=== PATIENT | female | born 1955 | race Two or more races ===

== ENCOUNTER 2021-10-30 11:43 | Outpatient (REF) | payer MEDICARE, SELFPAY ==
--- NOTE | ~2021-10-30 | US_ITS ---
EXAMINATION: US PELVIS CLINICAL INFORMATION: Postmenopausal bleeding. COMPARISON: Pelvic ultrasound 05/09/2011 TECHNIQUE: Ultrasound of the pelvis is performed using both transabdominal and transvaginal transducers along with Doppler. Transvaginal imaging is performed due to inadequate visualization transabdominally. FINDINGS: Uterus: The uterus is anteverted and measures 2.7 x 3.3 x 5.1 cm. The double wall endometrial thickness is 1.5 cm which appears heterogeneous with cystic change. The uterus is smooth in contour and has normal myometrial echogenicity. A 1.2 x 1.2 x 1.7 cm subserosal myoma in the anterior lower uterine segment, previously 1.4 cm. A 2.4 x 1.8 x 1.7 cm subserosal myoma in the left body of the uterus, previously 1.3 x 0.9 x 1.3 cm appears morphologically similar despite differences in measurement technique. Adnexa: Both ovaries are visualized and unremarkable in appearance. There is no pelvic ascites or fluid collection. Right ovary measures 2.1 x 1.8 x 2.4 cm. Left ovary measures 2.9 x 1.9 x 2.2 cm. US/US pelvic and transvaginal IMPRESSION: Thickened heterogeneous endometrium with cystic change measuring up to 1.5 cm in thickness. Given provided history of postmenopausal bleeding, recommend gynecologic referral for consideration of sampling. Several small uterine myomas measuring up to 2.4 cm. Ovaries are unremarkable.
--- NOTE | ~2021-10-30 | XR_ITS ---
EXAMINATION: XR foot RT min 3V CLINICAL INFORMATION: Right foot open wound COMPARISON: None TECHNIQUE: 3 views of the foot XR/XR foot RT min 3V FINDINGS/IMPRESSION: There is focal soft tissue swelling of the third digit corresponding to the reported location of the open wound, with a focal cortical erosion of the tuft of the third distal phalanx, raising suspicion for osteomyelitis. This could be confirmed with MR foot. No fracture or dislocation. Mild degenerative changes of the first metatarsophalangeal joint with hallux valgus deformity and degenerative spurring. Plantar calcaneal and Achilles tendon enthesopathy. Mild degenerative changes of the dorsal midfoot with osteophytosis. No joint effusion. Atherosclerotic vascular calcification.
[2021-10-30 13:09] LABS: MANUAL DIFF FLAG NO
[2021-10-30 13:15] LABS: Basophils Percent Auto 0.3 % (0-2); Eosinophils Absolute Auto 0.2 X10*3/uL (0.0-0.4); Eosinophils Percent Auto 3.2 % (0-4); Imm Gran Abs Auto 0.02 X10*3/uL (0.00-0.03); Imm Gran Pct Auto 0.3 % (0.0-0.4); Lymphocytes Absolute Auto 2.1 X10*3/uL (1.2-4.9); Mean Corpuscular HGB Conc 32.4 g/dl (31.0-35.0); Mean Corpuscular Hemoglobin 29.7 pg (27.0-33.0); Mean Corpuscular Volume 91.6 fL (80.0-98.0); Mean Platelet Volume 9.2 fL (9.4-12.3); Monocytes Absolute Auto 0.7 X10*3/uL (0.1-1.2); Monocytes Percent Auto 9.2 % (2-11); Neutrophils Absolute Auto 4.2 x10*3/uL (2.0-8.3); Platelet Count 370 X10*3/uL (160-400); Red Blood Count 4.04 X10*6/uL (4.20-5.50); Red Cell Distribution Width 13.4 % (11.0-16.0); White Blood Count 7.3 X10*3/uL (4.8-10.8)
[2021-10-30 13:33] LABS: Estimated Average Glucose 243 mg/dL; Hemoglobin A1c % 10.1 %
[2021-10-30 13:45] LABS: Alanine Aminotransferase 31 U/L (0-31); Albumin Level 4.1 g/dL (3.5-5.0); Alkaline Phosphatase 52 U/L (39-117); Anion Gap 11 (12-20); Aspartate Amino Transferase 25 U/L (5-31); Bilirubin Total 0.4 mg/dL (0.0-1.0); Blood Urea Nitrogen 37 mg/dL (9-16); Carbon Dioxide 29 mmol/L (22-29); Chloride 101 mmol/L (96-108); Cholesterol 186 mg/dL; Estimated Glomerular Filt Rate 38; Glucose Random 157 mg/dL (60-115); HDL Cholesterol 34 mg/dL; LDL Cholesterol Calculated 104 mg/dl; Potassium 5.2 mmol/L (3.3-5.1); Sodium 136 mmol/L (135-145); Total Protein 7.7 g/dL (6.5-8.0); Triglycerides 242 mg/dL
[2021-10-30 14:05] LABS: TSH reflex Free T4 0.41 uIU/mL (0.32-4.0)
== END 2021-10-30 11:44 | disposition home or self-care (01) ==
LOC: HO.US 11:43
PROVIDERS: Absent Provider Emergency Medicine; PCP Emergency Medicine; Visit Provider Advanced Practice Midwife
DX: N95.0 Postmenopausal bleeding (principal); S91.301D Unspecified open wound, right foot, subsequent encounter; E11.65 Type 2 diabetes mellitus with hyperglycemia; N93.9 Abnormal uterine and vaginal bleeding, unspecified; B35.1 Tinea unguium
CPT/HCPCS: 36415; 73630; 76830; 76856; 80053; 80061; 83036; 84443; 85025

== ENCOUNTER 2021-11-08 10:41 | Outpatient (REF) | payer MEDICARE, MEDICAID, SELFPAY ==
--- NOTE | ~2021-11-08 | MM_ITS ---
EXAMINATION: BONE DENSITOMETRY CLINICAL INDICATION: Menopause. COMPARISON: None (current study represents initial baseline exam). TECHNIQUE: Using a [employer] DXA System (software version: 13.1) manufactured by [employer], dual-energy x-ray absorptiometry was performed of the lumbar spine and left hip. The images are of good technical quality. Summary results are attached. FINDINGS: AP SPINE L1-L4: There are multilevel degenerative changes lumbar spine which may cause overestimation of the lumbar bone mineral density. BMD 1.549 g/cm2, Z-score 3.6, T-score 3.1, normal. LEFT FEMUR, NECK: BMD 1.025 g/cm2, Z-score 0.7, T-score -0.1, normal. LEFT FEMUR, TOTAL: BMD 1.231 g/cm2, Z-score 2.3, T-score 1.8, normal. IDENTIFIED RISK FACTORS: Menopause, height loss, hyperthyroid, intestinal/bowel disease, recurrent falls, secondary osteoporosis. HISTORY OF FRACTURE: None listed. MEDICATIONS: None listed. MM/XR DEXA axial skeleton IMPRESSION: 1. DIAGNOSIS: Normal bone density based on the lowest T-score value of -0.1 in the femoral neck applying World Health Organization criteria. 2. 10-YEAR FRACTURE RISK PREDICTION, FRAX: According to the guidelines, FRAX calculation should only be performed on patients in the osteopenia bone density category. Therefore, FRAX was not performed on this patient. 3. Treatment Recommendations: NOF guidelines recommend consideration for treatment in postmenopausal women and men age 50 and older presenting with the following: -A hip or vertebral (clinical or morphometric) fracture. -T-score less than or equal to -2.5 at the femoral neck or spine after appropriate evaluation to exclude secondary causes. -Low bone mass at the hip or spine and a 10-year fracture probability by FRAX of greater than or equal to 3% for hip fracture or greater than or equal to 20% for major osteoporotic fracture based on the [place] adapted WHO algorithm. 4. Other Recommendations: All treatment decisions require clinical judgment and consideration of individual patient factors, including patient preferences, comorbidities, previous drug use, risk factors not captured in the FRAX model (e.g. frailty, falls, vitamin D deficiency, increased bone turnover, interval significant decline in bone density) and possible under or overestimation of fracture risk by FRAX. FUTURE SCAN RECOMMENDATION: People with diagnosed cases of osteoporosis or at high risk for fracture should have regular bone mineral density tests. For patients eligible for Medicare, routine testing is allowed once every 2 years. The testing frequency can be increased to one year for patients who have rapidly progressing disease, those who are receiving or discontinuing medical therapy to restore bone mass, or have additional risk factors.
== END 2021-11-08 10:42 | disposition home or self-care (01) ==
LOC: HO.MAMMO 10:41
PROVIDERS: Visit Provider Internal Medicine
DX: Z13.820 Encounter for screening for osteoporosis (principal); Z78.0 Asymptomatic menopausal state; E03.9 Hypothyroidism, unspecified
CPT/HCPCS: 77080

== ENCOUNTER 2021-11-22 10:58 | Outpatient (REF) | payer MEDICARE, SELFPAY ==
--- NOTE | ~2021-11-22 | MM_ITS ---
EXAMINATION: MM SCREENING DIGITAL BREAST TOMOSYNTHESIS, BILATERAL CLINICAL INFORMATION: Screening. Asymptomatic. History reduction mammoplasty over 30 years ago. Most recent prior mammography performed in [place]. The lifetime risk of breast cancer based on the Tyrer-Cuzick Model is 9%. COMPARISON: Mammography: 07/29/2012 ([facility] [place]). TECHNIQUE: Digital breast tomosynthesis is performed in both the craniocaudal and mediolateral oblique views along with computer-aided detection (CAD). Synthesized 2D images are generated from the tomosynthesis. Additional right CC view is provided. FINDINGS: There are scattered areas of fibroglandular density (ACR BI-RADS breast composition Category b). Parenchymal pattern is similar to the remote prior exam. Scattered minor asymmetries and scarring are stable. There are scattered benign round rim predominantly dermal calcifications again seen anterior breasts consistent with the remote prior reduction mammoplasty. The axilla are unremarkable. There are no significant changes. MM/MM tomosynthesis screening BI IMPRESSION: No mammographic evidence of malignancy. ASSESSMENT: BI-RADS 2: Benign RECOMMENDATION: Routine annual mammography screening. This patient's information was entered into a reminder system with a target due date for their next mammogram.
== END 2021-11-22 10:59 | disposition home or self-care (01) ==
LOC: HO.MAMMO 10:58
PROVIDERS: Visit Provider Internal Medicine
DX: Z12.31 Encounter for screening mammogram for malignant neoplasm of breast (principal)
CPT/HCPCS: 77063; 77067

== ENCOUNTER 2021-11-25 15:21 | Outpatient (REF) | payer MEDICARE, SELFPAY ==
[2021-11-28 11:00] LABS: HPV mRNA E6/E7 rflx Not Detected (Not Detected)
== END 2021-11-25 15:22 | disposition home or self-care (01) ==
LOC: HO.LAB 15:21
PROVIDERS: PCP Nurse Practitioner Primary Care; Visit Provider Obstetrics & Gynecology
DX: Z12.4 Encounter for screening for malignant neoplasm of cervix (principal); Z11.51 Encounter for screening for human papillomavirus (HPV); N95.0 Postmenopausal bleeding
CPT/HCPCS: 58100; 87624; 88142; 88305; 99202

== ENCOUNTER 2021-12-03 14:30 | Outpatient (REF) | payer MEDICARE, SELFPAY ==
--- NOTE | ~2021-12-03 | MR_ITS ---
EXAMINATION: MR FOOT WITHOUT AND WITH CONTRAST, RIGHT CLINICAL INFORMATION: Right foot pain and swelling. Distal 3rd toe infection in February 2021. Third toe wound with soft tissue swelling. COMPARISON: Right foot radiographs dated 10/30/2021. TECHNIQUE: Multisequence MR imaging of the right foot was obtained before and after the administration of 10 mL Gadavist IV contrast on a high-field strength scanner. FINDINGS: Soft tissue ulceration with subcutaneous edema and postcontrast enhancement within the distal aspect of the 3rd toe. Soft tissue edema extends proximally along the 3rd toe. No evidence of abscess formation. There is attenuation and irregularity of the adjacent 3rd distal phalanx with increased T2 and decreased T1 signal as well as postcontrast enhancement, consistent with distal phalangeal osteomyelitis. No additional evidence of acute osteomyelitis. No stress reaction or fracture. No additional concerning lytic or blastic osseous lesion. The visualized flexor and extensor tendons are intact. Mild edema throughout the intrinsic musculature of the foot, which can be seen in diabetic patients. The Lisfranc ligament is intact. No abnormal soft tissue mass, fluid collection, or abscess formation. MR/MR foot RT wo/w con IMPRESSION: Distal 3rd toe soft tissue ulceration and cellulitis with erosion/acute osteomyelitis of the distal 3rd phalanx.
[2021-12-03 14:16] LABS: Anion Gap 14 (12-20); Blood Urea Nitrogen 27 mg/dL (9-16); Calcium 10.4 mg/dL (8.4-10.2); Carbon Dioxide 28 mmol/L (22-29); Chloride 99 mmol/L (96-108); Estimated Glomerular Filt Rate 56; Glucose Random 209 mg/dL (60-115); Potassium 5.1 mmol/L (3.3-5.1); Sodium 136 mmol/L (135-145)
== END 2021-12-03 14:31 | disposition home or self-care (01) ==
LOC: HO.MRI 14:30
PROVIDERS: Visit Provider Nurse Practitioner Primary Care
DX: S91.301A Unspecified open wound, right foot, initial encounter (principal)
CPT/HCPCS: 36415; 73720; 80048; A9585

== ENCOUNTER 2021-12-04 07:52 | Outpatient (RCR) | payer MEDICARE, MEDICAID, SELFPAY | END 2022-01-24 15:19 | disposition home or self-care (01) | LOC: HO.WCC 07:52 | PROVIDERS: PCP Nurse Practitioner Primary Care; Visit Provider Surgery | DX: Z09 Encounter for follow-up examination after completed treatment for conditions other than malignant neoplasm (principal); E11.69 Type 2 diabetes mellitus with other specified complication; M86.271 Subacute osteomyelitis, right ankle and foot; L84 Corns and callosities; Z86.31 Personal history of diabetic foot ulcer | CPT/HCPCS: 11042; 99212 ==

== ENCOUNTER 2021-12-07 07:29 | Inpatient (IN) | payer MEDICARE, SELFPAY ==
[2021-12-07 07:44] VITALS: BP 172/81; PULSE 94; RESP 19; TEMP 36.6; O2SAT 98; BMI 34.8
--- NOTE | 2021-12-07 08:29 | ED_ITS ---
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 Patient states that the 3rd toe on her right foot has been infected and she has been taking antibiotics however, her doctor ordered an MRI and saw that the infection had reached the bone. She states that her doctor told her to come to the emergency department immediately for IV antibiotics and admission. Patient states that she is feeling very anxious about staying in the hospital and would like something for her nerves. Patient denies any dizziness, lightheadedness, abdominal pain, nausea, vomiting, fever, chills, blurry vision, double vision, loss of vision, chest pain, difficulty breathing, shortness of breath, back pain, night sweats, pain with urination, increased urinary frequency, increased urinary urgency, blood in her urine or stool, syncope or a near syncopal episode, recent trauma or falls, bowel incontinence, bladder incontinence, bowel retention, bladder retention, or any other complaints at this time. MD complaint: other (chronic toe wound) Onset (ago): week(s) Place: home Severity: mild Severity scale (1-10): 3 Relieving factors: other (antibiotic therapy) Exacerbating factors: nothing Other symptoms: none Related Data Home Medications Medication Instructions Recorded Confirmed Unobtainable 11/25/21 11/25/21 Allergies Allergy/AdvReac Type Severity Reaction Status Date / Time No Known Allergies Allergy Unverified 11/25/21 15:48 Review of Systems Constitutional: Constitutional: Reports no additional constitutional complaints, Denies chills, Denies fever(s) and Denies night sweats Eyes: Eyes: Reports no additional eye complaints, Denies blurry vision, Denies change in vision, Denies diplopia, Denies eye discharge, Denies loss of vision and Denies eye pain ENT: Denies dizziness Cardiovascular: Cardiovascular: Reports no additional cardiovascular complaints, Denies chest pain, Denies lightheadedness, Denies Loss of Consciousness and Denies dyspnea Respiratory: Respiratory: Reports no additional respiratory complaints and Denies dyspnea Gastrointestinal: Gastrointestinal: Reports no additional gastrointestinal complaints, Denies abdominal pain, Denies melena, Denies hematochezia, Denies change in bowel habits and Denies change in stool character Genitourinary: Genitourinary: Denies hematuria, Denies urinary frequency, Denies dysuria, Denies urinary incontinence, Denies urinary hesitancy and Denies urinary urgency Musculoskeletal: Musculoskeletal: Reports no additional musculoskeletal complaints, Denies numbness and Denies tingling Integumentary/Breasts: Comments: right 3rd toe wound Neurologic: Denies dizziness, Denies loss of vision, Denies numbness and Denies tingling Psychiatric: Psychiatric: Reports no additional psychiatric complaints and Reports anxiety Endocrine: Endocrine: Reports no additional endocrine complaints Hematologic/Lymphatic: Hematologic/Lymphatic: Reports no additional hematologic/lymphatic complaints Allergic/Immunologic: Allergic/Immunologic: Reports no additional allergic/immunologic complaints PMFSH Past Medical History Attestation statement: The following information was validated with the patient. Source: old records reviewed Medical History HTN (hypertension) Hypothyroid Insulin dependent type 1 diabetes mellitus Surgical History H/O heart artery stent Social History Social History Patient Tobacco Use Status: Never used Tobacco Use of substances other than those prescribed or required for medical reasons: No Advance Directives: No Advance Directives Information Provided: No Physical Exam Vital Signs: Vital Signs: Last Vital Signs Temp 98 F 12/07/21 07:44 Pulse 72 12/07/21 08:56 Resp 18 12/07/21 08:56 BP 159/77 H 12/07/21 08:56 Pulse Ox 97 12/07/21 08:56 BMI result Body Mass Index 34.8 Const: General: cooperative, no acute distress, alert and awake Nutritional Appearance: well nourished Orientation/consciousness: patient oriented x3 Limitations: no limitations HEENT: Head: Yes normal to inspection and Yes atraumatic Ears: hearing grossly normal bilaterally and external ears normal General nose exam: Normal external nose present, no nasal discharge noted and no epistaxis Face and sinus: Yes normal facial exam, No abrasion and No laceration Mouth: Normal oral and palatal mucosa present, no drooling and no muffled voice Eyes: General: appearance normal, both eyes and all related structures Periorbital: periorbital findings normal Eyelids: Yes eyelids normal Conjunctivae: conjunctivae normal Pupils: Equal, round and reactive pupils present EOM: EOMs intact bilaterally Neck: Neck: Yes normal visual inspection, Yes full ROM and Yes no lymphadenopathy Chest: Chest palpation & inspection: normal inspection of the chest Resp: Effort & Inspection: normal respiratory effort and able to speak in complete sentences Auscultation: clear to auscultation bilaterally Cardio: Rate: regular rate Rhythm: regular rhythm GI: Inspection: Yes normal to inspection Skin: Other: small wound to the plantar aspect of the right 3rd toe. Neuro: General: patient oriented x3 and moves all extremities Cranial nerves: Yes Equal, round and reactive pupils present Cognition (Neuro): normal cognition Motor exam (neuro): 5/5 motor strength present throughout Sensory Exam: Normal double simultaneous stimulation for sensation Coordination: [id number] test normal Extrem: General: Yes normal to inspection, Yes full ROM and Yes capillary ref ill normal Psych: Appearance: grossly normal Mental Status: mental status grossly normal Affect: normal affect Attitude: cooperative Thought process: Normal thought process present Thought content: Normal thought content present Insight: Good insight present (Psych) MDM - Extremity Injury (Lower) MDM Narrative Medical decision making narrative: Patient is a 66 year old female presenting to the emergency department today with osteomyelitis. Patient's physical exam showed a small wound to the plantar aspect of the right 3rd toe but was otherwise unremarkable. Patient's blood work was unremarkable. Patient's MRI from 12/03/2021 showed acute osteomyelitis of the distal 3rd phalanx. I explained my physical exam findings as well as all test results to the patient. I answered all questions asked by the patient. Patient received IV Vancomycin and Zosyn while in the Emergency Department. She also received 1 dose of PO Ativan which she stated helped her anxious feeling significantly. I spoke to Dr. Griffith via [employer], who agreed to admission of this patient. Patient verbalized agreement and understanding with this treatment plan and admission. Differential Diagnosis Differential diagnosis: Unlikely puncture wound of foot (osteomyelitis) Medical Records Attestation: I reviewed the patient's medical records. Lab Data Attestation: I reviewed the patient's lab results. Result diagrams: 12/07/21 09:11 12/07/21 09:11 Labs: Lab Results 12/07/21 12/07/21 12/07/21 Range/Units 09:11 09:11 09:20 WBC 9.3 (4.8-10.8) X10*3/uL RBC 3.89 L (4.20-5.50) X10*6/uL Hgb 11.8 L (12.0-16.0) g/dl Hct 35.4 L (37.0-47.0) % MCV 91.0 (80.0-98.0) fL MCH 30.3 (27.0-33.0) pg MCHC 33.3 (31.0-35.0) g/dl RDW 13.6 (11.0-16.0) % Plt Count 423 H (160-400) X10*3/uL MPV 9.3 L (9.4-12.3) fL Immature Gran % (Auto) 0.3 (0.0-0.4) % Neut % (Auto) 66.0 (45-73) % Lymph % (Auto) 22.1 (20-40) % Woodruff % (Auto) 9.0 (2-11) % Eos % (Auto) 2.4 (0-4) % Baso % (Auto) 0.2 (0-2) % Lymph # (Auto) 2.1 (1.2-4.9) X10*3/uL Woodruff # (Auto) 0.8 (0.1-1.2) X10*3/uL Eos # (Auto) 0.2 (0.0-0.4) X10*3/uL Baso # (Auto) 0.0 (0.0-0.2) X10*3/uL Abs Immat Gran (auto) 0.03 (0.00-0.03) X10*3/uL Absolute Neuts (auto) 6.2 (2.0-8.3) x10*3/uL Absolute Nucleated RBC 0.000 (0.0-0.012) X10*3/uL Nucleated RBC % (auto) 0.0 (0.0-0.2) /100WBC Sodium 139 (135-145) mmol/L Potassium 4.1 (3.3-5.1) mmol/L Chloride 101 (96-108) mmol/L Carbon Dioxide 26 (22-29) mmol/L Anion Gap 16 (12-20) BUN 21 H (9-16) mg/dL Creatinine 0.91 (0.5-1.4) mg/dL Estim Creat Clear Calc 71.7 Estimated GFR > 60 Fasting Glucose 223 H (60-99) mg/dL Lactic Acid 1.7 (0.5-2.0) mmol/L Calcium 10.0 (8.4-10.2) mg/dL Total Bilirubin 0.4 (0.0-1.0) mg/dL AST 32 H (5-31) U/L ALT 33 H (0-31) U/L Alkaline Phosphatase 45 (39-117) U/L Total Protein 7.7 (6.5-8.0) g/dL Albumin 4.1 (3.5-5.0) g/dL Imaging Data MRI - right foot: Attestation: I personally reviewed and interpreted this imaging study as follows: My impression: Acute osteomyelitis Radiologist's impression: EXAMINATION: MR FOOT WITHOUT AND WITH CONTRAST, RIGHT CLINICAL INFORMATION: Right foot pain and swelling. Distal 3rd toe infection in February 2021. Third toe wound with soft tissue swelling.? COMPARISON: Right foot radiographs dated 10/30/2021.? TECHNIQUE: Multisequence MR imaging of the right foot was obtained before and after the administration of 10 mL Gadavist IV contrast on a high-field strength scanner.? FINDINGS: Soft tissue ulceration with subcutaneous edema and postcontrast enhancement within the distal aspect of the 3rd toe. Soft tissue edema extends proximally along the 3rd toe. No evidence of abscess formation. There is attenuation and irregularity of the adjacent 3rd distal phalanx with increased T2 and decreased T1 signal as well as postcontrast enhancement, consistent with distal phalangeal osteomyelitis. No additional evidence of acute osteomyelitis. No stress reaction or fracture. No additional concerning lytic or blastic osseous lesion. The visualized flexor and extensor tendons are intact. Mild edema throughout the intrinsic musculature of the foot, which can be seen in diabetic patients. The Lisfranc ligament is intact. No abnormal soft tissue mass, fluid collection, or abscess formation.? MR/MR foot RT wo/w con IMPRESSION: Distal 3rd toe soft tissue ulceration and cellulitis with erosion/acute osteomyelitis of the distal 3rd phalanx.? Dictated By: Ulysses Mandujano MD Signed By: Electronically signed by Ulysses Mandujano MD 12/05/21 0937 Discharge Plan Discharge Clinical Impression: Osteomyelitis Patient Disposition: Admitted As Inpatient Prescriptions: No Action Unobtainable 0RF Print Language: Nepali
[2021-12-07] MEDS: LORazepam 1 MG TABLET 2 MG PO (08:40)
[2021-12-07 08:56] VITALS: BP 159/77; PULSE 72; RESP 18; O2SAT 97
--- NOTE | 2021-12-07 09:11 | PC.NURSE ---
Right third toe small dried wound to under side of toe, left open to air. +CMS. IV established.
[2021-12-07 09:16] LABS: MANUAL DIFF FLAG NO
[2021-12-07 09:17] LABS: Basophils Percent Auto 0.2 % (0-2); Eosinophils Absolute Auto 0.2 X10*3/uL (0.0-0.4); Eosinophils Percent Auto 2.4 % (0-4); Hematocrit 35.4 % (37.0-47.0); Hemoglobin 11.8 g/dl (12.0-16.0); Imm Gran Abs Auto 0.03 X10*3/uL (0.00-0.03); Imm Gran Pct Auto 0.3 % (0.0-0.4); Lymphocytes Absolute Auto 2.1 X10*3/uL (1.2-4.9); Lymphocytes Percent Auto 22.1 % (20-40); Mean Corpuscular HGB Conc 33.3 g/dl (31.0-35.0); Mean Corpuscular Hemoglobin 30.3 pg (27.0-33.0); Mean Platelet Volume 9.3 fL (9.4-12.3); Monocytes Absolute Auto 0.8 X10*3/uL (0.1-1.2); Neutrophils Absolute Auto 6.2 x10*3/uL (2.0-8.3); Platelet Count 423 X10*3/uL (160-400); Red Blood Count 3.89 X10*6/uL (4.20-5.50); Red Cell Distribution Width 13.6 % (11.0-16.0); White Blood Count 9.3 X10*3/uL (4.8-10.8)
[2021-12-07] MEDS: Piperacillin Sodium/Tazobactam 4.5 GM in 0.9 % Sodium Chloride 100 ML IV ×3 (09:20→20:39)
[2021-12-07 09:34] LABS: Alanine Aminotransferase 33 U/L (0-31); Albumin Level 4.1 g/dL (3.5-5.0); Alkaline Phosphatase 45 U/L (39-117); Anion Gap 16 (12-20); Aspartate Amino Transferase 32 U/L (5-31); Bilirubin Total 0.4 mg/dL (0.0-1.0); Blood Urea Nitrogen 21 mg/dL (9-16); Carbon Dioxide 26 mmol/L (22-29); Chloride 101 mmol/L (96-108); Creatinine Clr Calc Pharmacy 71.7; Estimated Glomerular Filt Rate > 60; Glucose Fasting 223 mg/dL (60-99); Potassium 4.1 mmol/L (3.3-5.1); Sodium 139 mmol/L (135-145); Total Protein 7.7 g/dL (6.5-8.0)
[2021-12-07 09:36] LABS: Lactic Acid 1.7 mmol/L (0.5-2.0)
--- NOTE | 2021-12-07 11:25 | PHA.MEDREC ---
Pharmacy Consult ? Medication Reconciliation Pharmacy has completed the medication reconciliation.
[2021-12-07 11:38] VITALS: BP 157/83; PULSE 68; RESP 16
--- NOTE | 2021-12-07 12:34 | P.HPHOSP_ITS ---
History of Present Illness Date of Service: 12/07/21 Chief Complaint: right third toe osteomyelitis 66-year-old female presents with what she claims is a bone infection in her right 3rd toe. She states she had an MRI done by her PCP who called stated she needed to go to the emergency room for IV antibiotics. When reviewed, MRIs consistent with 3rd right toe distal phalanx osteomyelitis. When further queried, she states she had similar episode in [place] approximately 5 months ago. She adequately describes a PICC line and 6 weeks of IV antibiotics. She states her toe was not read however PCP wanted to follow up the MRI to document osteomyelitis had resolved. She denies fever and chills; she denies pain. She states it has not affected her gait. She will be admitted for further treatment and investigation Review of Systems Review of Systems: Denies chest pain Denies shortness of breath Denies nausea vomiting diarrhea Denies fever and chills Denies dizziness or unsteady gait Denies redness of right foot PMFSH Medical History (Updated 12/07/21 @ 12:39 by Jacoby Liang DO) HTN (hypertension) Hypothyroid Insulin dependent type 1 diabetes mellitus Surgical History H/O heart artery stent Social History Patient Tobacco Use Status: Never used Tobacco Use of substances other than those prescribed or required for medical reasons: No Advance Directives: No Advance Directives Information Provided: No Meds Allergies Allergy/AdvReac Type Severity Reaction Status Date / Time No Known Allergies Allergy Unverified 11/25/21 15:48 Active Medications: Current Medications Aspirin (Aspirin Enteric Coated 81 Mg Tablet.Dr) 81 mg PO DAILY ALO Carvedilol (Carvedilol 6.25 Mg Tablet) 6.25 mg PO DAILY [facility]; Protocol Enoxaparin Sodium (Enoxaparin Sodium 40 Mg/0.4 Ml Syringe) 40 mg SUBCUT Q24H ALO Piperacillin Sod/Tazobactam (Sod 4.5 gm/ Sodium Chloride) 100 mls @ 200 mls/hr IV RQ6H ALO Insulin Glargine (Insulin Glargine,Hum.Rec.Anlog 100 Unit/Ml 10 Ml Vial) 30 unit SUBCUT BEDTIME ALO Levothyroxine Sodium 112 mcg/ (Levothyroxine Sodium 25 mcg) 137 mcg PO DAILY@0600 [facility] Metformin HCl (Metformin Hcl 1,000 Mg Tablet) 1,000 mg PO BID [facility] Non-Formulary Medication (Irbesartan-Hydrochlorothiazide) 1 tab PO DAILY [facility] Non-Formulary Medication (Rosuvastatin) 1 tab PO DAILY [facility] Non-Formulary Medication (Cyclosporine [Restasis]) 1 drop EYE-BOTH Q12H [facility] Non-Formulary Medication (Levothyroxine) 1 tab PO DAILY [facility] Pharmacy Consult (Consult Rx Perform Med Rec) 1 each MISCELLANE ONCE PRN PRN Reason: Consult order Pharmacy Consult (Consult Rx Vancomycin Dosing) 1 each MISCELLANE DAILY PRN PRN Reason: Consult order Pregabalin (Pregabalin 75 Mg Capsule) 75 mg PO DAILY [facility] Sodium Chloride (0.9 % Sodium Chloride Flush 3 Ml Syringe) 3 ml IVFLUSH QSHIFT [facility] Home Medications Medication Instructions Recorded Confirmed Last Taken Type aspirin 81 mg tablet,delayed 1 tab PO DAILY 12/07/21 12/07/21 12/06/21 History release carvedilol 6.25 mg tablet 1 tab PO DAILY 12/07/21 12/07/21 12/06/21 History cyclosporine 0.05 % eye drops in a 1 drp OPHTHALMIC (EYE) Q12H 12/07/21 12/07/21 12/06/21 History dropperette (Restasis) dulaglutide 0.75 mg/0.5 mL 0.75 mg SUBCUT QWEEK 12/07/21 12/07/21 Unknown History subcutaneous pen injector (Trulicity) insulin glargine 100 unit/mL (3 30 unit SUBCUT BEDTIME 12/07/21 12/07/21 12/06/21 History mL) subcutaneous pen (Lantus Solostar U-100 Insulin) irbesartan 300 1 tab PO DAILY 12/07/21 12/07/21 12/06/21 History mg-hydrochlorothiazide 12.5 mg tablet levothyroxine 137 mcg tablet 1 tab PO DAILY 12/07/21 12/07/21 12/06/21 History metformin 1,000 mg tablet 1 tab PO BID 12/07/21 12/07/21 12/06/21 History pregabalin 75 mg capsule 1 cap PO DAILY 12/07/21 12/07/21 12/06/21 History rosuvastatin 5 mg tablet 1 tab PO DAILY 12/07/21 12/07/21 Unknown History Physical Exam Vital Signs and Narrative: Vital Signs: Last Vital Signs Temp 98 F 12/07/21 07:44 Pulse 68 12/07/21 11:38 Resp 16 12/07/21 11:38 BP 157/83 H 12/07/21 11:38 Pulse Ox 97 12/07/21 08:56 BMI result Body Mass Index 34.8 Const: Other: Awake alert oriented x3 no acute distress Resp: Other: Clear to auscultation bilaterally no rales rhonchi or wheezes Cardio: Other: No S4; positive S1-S2; no S3 murmurs or gallops GI: Other: Soft nontender nondistended with normoactive bowel sounds Neuro: Other: Cranial nerves 2-12 grossly intact as tested. Motor is 5/5 all extremities. Sensation is intact distally; no monofilament available however does respond appropriately to 3.0 nylon suture material. Positional sense is intact great toes Extrem: Other: No edema bilaterally. No erythema or pain elicited right 3rd toe Results Labs CBC and Chem 7: 12/07/21 09:11 12/07/21 09:11 Labs: Laboratory Results - last 24 hr 12/07/21 12/07/21 12/07/21 09:11 09:11 09:20 MCV 91.0 MCH 30.3 MCHC 33.3 RDW 13.6 Plt Count 423 H MPV 9.3 L Immature Gran % (Auto) 0.3 Neut % (Auto) 66.0 Lymph % (Auto) 22.1 [place] % (Auto) 9.0 Eos % (Auto) 2.4 Baso % (Auto) 0.2 Lymph # (Auto) 2.1 [place] # (Auto) 0.8 Eos # (Auto) 0.2 Baso # (Auto) 0.0 Abs Immat Gran (auto) 0.03 Absolute Neuts (auto) 6.2 Absolute Nucleated RBC 0.000 Nucleated RBC % (auto) 0.0 Anion Gap 16 Estim Creat Clear Calc 71.7 Estimated GFR > 60 Fasting Glucose 223 H Lactic Acid 1.7 Calcium 10.0 Total Bilirubin 0.4 AST 32 H ALT 33 H Alkaline Phosphatase 45 Total Protein 7.7 Albumin 4.1 Assessment and Plan (1) Osteomyelitis: Status: Acute (2) Type 2 diabetes mellitus: Status: Acute (3) HTN (hypertension): Status: Acute Plan 66-year-old female presents with osteomyelitis as demonstrated by MRI to her right 3rd toe distal phalanx. She states this is recurrent as she had similar episode approximately 5 months ago (cannot recall antibiotic). Currently she is pain-free 1.Osteomyelitis (right 3rd toe distal phalanx) -IV vancomycin and Zosyn -blood cultures, CRP, ESR all pending -ID consult 2. Diabetes type 2 (requiring insulin) -hold Trulicity; Lantus as per outpatient dosing/metformin -cover with Lispro correctional scale -adjust as indicated 3. Hypertension -acceptable control on current therapies -continue outpatient medicines as per outpatient regimen - adjust as indicated 4. Hyperlipidemia -statin as ordered Lovenox Full code Will require at least 2 midnights to treat osteomyelitis with IV antibiotics; will need negative blood cultures and PICC prior to discharge Quality Stroke Does the patient have a stroke diagnosis?: No VTE Prior VTE?: No VTE Risk Level:: Medical - moderate - high VTE Device Contraindication: Treatment Not Indicated VTE Drug Contraindication: N/A - Med Ordered
[2021-12-07 12:36] LABS: C Reactive Protein 0.28 mg/dL (< or = 0.50)
[2021-12-07 13:05] LABS: Erythrocyte Sedimentation Rate 53 MM/HR (0-20)
[2021-12-07] MEDS: Pregabalin 75 MG CAPSULE PO (13:34)
[2021-12-07] MEDS: metFORMIN HCl 1,000 MG TABLET 1000 MG PO ×2 (13:34→20:47)
[2021-12-07] MEDS: Enoxaparin Sodium 40 MG/0.4 ML SYRINGE SUBCUT (13:34)
--- NOTE | 2021-12-07 13:43 | PHA.PROG ---
Admission Date/Time: December 07, 2021 12:18 Indication: skin/skin structure possible osteo Weight in k kg Adjusted body weight in K.78 [place] body weight in Kg: Obesity Dosing Indication % IBW: Serum Creatinine - Last 168 Hours 12/07/21 09:11 Creatinine 0.91 Estimated CrCl and GFR - Last 168 Hours 12/07/21 09:11 Estim Creat Clear Calc 71.7 Estimated GFR > 60 Vancomycin Loading Dose: 2000 mg Current Vancomycin Dosing Regimen: 1500 q 24h Vancomycin Monitoring using AUC goal of 400 - 600 range with trough as surrogate marker: auc 548, trough 13.7 Date and Time for next Vancomycin Level to be drawn: 12/09 @0800 Pharmacist Comments on Vancomycin Plan: using the OBESE model. weight verified with rose Vancomycin dosing will take advantage of [employer] as a clinical decision support tool that uses Bayesian modeling to calculate individual patient's pharmacokinetic parameters and forecast the patient's drug concentration time course with the target goal AUC 24 range of 400 - 600 mg/L/hr.
[2021-12-07] MEDS: 0.9 % Sodium Chloride Flush 3 ML SYRINGE IVFLUSH (15:54)
[2021-12-07 17:02] VITALS: BP 105/57; PULSE 70; RESP 16; TEMP 36.2; O2SAT 95
[2021-12-07 20:00] VITALS: BP 140/73; PULSE 76; RESP 16; TEMP 36.7; O2SAT 99
[2021-12-07 20:05] LABS: COVID-19 Test Negative (Negative); IDNOW Serial# 16C4AD1C
[2021-12-07 20:47] LABS: Glucose, Whole Blood 281 mg/dL (60-115)
[2021-12-07] MEDS: Insulin Glargine,Hum.rec.anlog 100 UNIT/ML 10 ML VIAL 30 UNIT SUBCUT (20:47)
[2021-12-08] VITALS: BP 143/73; PULSE 62; RESP 16; TEMP 36.5; O2SAT 97
[2021-12-08] MEDS: 0.9 % Sodium Chloride Flush 3 ML SYRINGE IVFLUSH ×4 (01:43→21:17)
[2021-12-08] MEDS: Piperacillin Sodium/Tazobactam 4.5 GM in 0.9 % Sodium Chloride 100 ML IV ×4 (03:23→21:17)
[2021-12-08 06:56] LABS: Glucose, Whole Blood 59 mg/dL (60-115)
[2021-12-08 06:59] LABS: Anion Gap 14 (12-20); Blood Urea Nitrogen 20 mg/dL (9-16); Calcium 9.6 mg/dL (8.4-10.2); Carbon Dioxide 26 mmol/L (22-29); Chloride 104 mmol/L (96-108); Creatinine Clr Calc Pharmacy 62.8; Estimated Glomerular Filt Rate 53; Glucose Random 59 mg/dL (60-115); Potassium 4.2 mmol/L (3.3-5.1); Sodium 140 mmol/L (135-145)
--- NOTE | 2021-12-08 07:04 | HE.PHANOTE ---
RE Vancomycin Patient had a 14% rise in scr, most likely as a result of the vanco load and zosyn. I decreased the dose from 1500 to 1250mg (13 mg/kg). Suspected trough now is 13.6, AUC of 513. Next trough is still 12/09 @0800
[2021-12-08 07:34] VITALS: BP 134/59; PULSE 66; RESP 19; TEMP 36.5; O2SAT 97
[2021-12-08 08:05] LABS: Glucose, Whole Blood 164 mg/dL (60-115)
--- NOTE | 2021-12-08 08:07 | PC.NURSE ---
patient called RN into room, asking for synthroid. Patient was not given at 0600, documented med mot available. Called pharmacy, med had been loaded into [email or web address]. offered patient med but she did not want to take because she already ate breakfast, will pass on tonight to overnight nurse for patient to get dosed in morning.
[2021-12-08 09:19] VITALS: BP 115/63; PULSE 79; RESP 17; O2SAT 96
[2021-12-08] MEDS: carvediloL 6.25 MG TABLET PO (09:27)
[2021-12-08] MEDS: Valsartan 160 MG TABLET PO (09:27)
[2021-12-08] MEDS: Aspirin Enteric Coated 81 MG TABLET.DR PO (09:27)
[2021-12-08] MEDS: Pregabalin 75 MG CAPSULE PO (09:27)
[2021-12-08] MEDS: metFORMIN HCl 1,000 MG TABLET 1000 MG PO ×2 (09:27→21:09)
[2021-12-08] MEDS: hydroCHLOROthiazide 12.5 MG TABLET PO (09:27)
[2021-12-08 09:42] LABS: Glucose, Whole Blood 137 mg/dL (60-115)
[2021-12-08] MEDS: vancomycin HCL 1,250 MG in 0.9 % Sodium Chloride 250 ML 166.67 MG IV (11:56)
[2021-12-08] MEDS: Enoxaparin Sodium 40 MG/0.4 ML SYRINGE SUBCUT (12:07)
[2021-12-08 12:33] LABS: Glucose, Whole Blood 125 mg/dL (60-115)
--- NOTE | 2021-12-08 16:34 | HO.PM.IMPN ---
Subjective Subjective Date of Service: 12/08/21 Review of Systems Denies chest pain Denies shortness of breath Denies nausea vomiting diarrhea Denies fever and chills Denies dizziness or unsteady gait Denies redness of right foot Physical Exam Vital Signs: Vital Signs: Last Vital Signs Temp 97.7 F 12/08/21 07:34 Pulse 79 12/08/21 09:19 Resp 17 12/08/21 09:19 BP 115/63 12/08/21 09:19 Pulse Ox 96 12/08/21 09:19 BMI result Body Mass Index 34.8 Const: Other: Awake alert oriented x3 no acute distress Resp: Other: Clear to auscultation bilaterally no rales rhonchi or wheezes Cardio: Other: No S4; positive S1-S2; no S3 murmurs or gallops GI: Other: Soft nontender nondistended with normoactive bowel sounds Neuro: Other: Cranial nerves 2-12 grossly intact as tested. Motor is 5/5 all extremities. Sensation is intact distally; no monofilament available however does respond appropriately to 3.0 nylon suture material. Positional sense is intact great toes Extrem: Other: No edema bilaterally. No erythema or pain elicited right 3rd toe Objective Data Active Medications Aspirin (Aspirin Enteric Coated 81 Mg Tablet.) 81 mg PO DAILY [facility] Last Admin: 12/08/21 09:27 Dose: 81 mg Documented by: MONA Atorvastatin Calcium (Atorvastatin Calcium 20 Mg Tablet) 20 mg PO BEDTIME [facility] Carvedilol (Carvedilol 6.25 Mg Tablet) 6.25 mg PO DAILY [facility]; Protocol Last Admin: 12/08/21 09:27 Dose: 6.25 mg Documented by: MNOA Enoxaparin Sodium (Enoxaparin Sodium 40 Mg/0.4 Ml Syringe) 40 mg SUBCUT Q24H [facility] Last Admin: 12/08/21 12:07 Dose: 40 mg Documented by: MONA Hydrochlorothiazide (Hydrochlorothiazide 12.5 Mg Tablet) 12.5 mg PO DAILY [facility] Last Admin: 12/08/21 09:27 Dose: 12.5 mg Documented by: MONA Piperacillin Sod/Tazobactam (Sod 4.5 gm/ Sodium Chloride) 100 mls @ 200 mls/hr IV Q6H [facility] Last Infusion: 12/08/21 12:03 Dose: 200 mls/hr Documented by: MONA Vancomycin HCl 1,250 mg/ (Sodium Chloride) 250 mls @ 166.667 mls/hr IV Q24H [facility] Last Infusion: 12/08/21 13:56 Dose: 0 mls/hr Documented by: MAT Insulin Glargine (Insulin Glargine,Hum.Rec.Anlog 100 Unit/Ml 10 Ml Vial) 30 unit SUBCUT BEDTIME [facility] Last Admin: 12/07/21 20:47 Dose: 30 unit Documented by: VIKAS Levothyroxine Sodium 112 mcg/ (Levothyroxine Sodium 25 mcg) 137 mcg PO DAILY@0600 [facility] Last Admin: 12/08/21 05:56 Dose: Not Given Documented by: DIA Non-Admin Reason: Med Not Available Metformin HCl (Metformin Hcl 1,000 Mg Tablet) 1,000 mg PO BID [facility] Last Admin: 12/08/21 09:27 Dose: 1,000 mg Documented by: MONA Pharmacy Consult (Consult Rx Perform Med Rec) 1 each MISCELLANE ONCE PRN PRN Reason: Consult order Pharmacy Consult (Consult Rx Vancomycin Dosing) 1 each MISCELLANE DAILY PRN PRN Reason: Consult order Pregabalin (Pregabalin 75 Mg Capsule) 75 mg PO DAILY [facility] Last Admin: 12/08/21 09:27 Dose: 75 mg Documented by: MONA Sodium Chloride (0.9 % Sodium Chloride Flush 3 Ml Syringe) 3 ml IVFLUSH QSHIFT [facility] Last Admin: 12/08/21 07:37 Dose: 3 ml Documented by: MONA Valsartan (Valsartan 160 Mg Tablet) 160 mg PO DAILY [facility] Last Admin: 12/08/21 09:27 Dose: 160 mg Documented by: MONA Labs CBC & Chem 7: 12/07/21 09:11 12/08/21 06:15 Labs: Laboratory Results - last 24 hr 12/07/21 12/07/21 12/08/21 19:35 20:44 06:15 Anion Gap 14 Estim Creat Clear Calc 62.8 Estimated GFR 53 POC Glucose 281 H Random Glucose 59 L* Calcium 9.6 COVID-19 (KARIN) Negative COVID-19 Clin Com See Note 03/12/08/21 12/08/21 06:52 08:01 09:37 Anion Gap Estim Creat Clear Calc Estimated GFR POC Glucose 59 L* 164 H 137 H Random Glucose Calcium COVID-19 (KARIN) COVID-19 Clin Com 12/08/21 12:29 Anion Gap Estim Creat Clear Calc Estimated GFR POC Glucose 125 H Random Glucose Calcium COVID-19 (KARIN) COVID-19 Clin Com Microbiology Microbiology Results: Microbiology 12/07/21 09:21 Blood Culture - Preliminary Blood - Venous No growth after 24 hours. 12/07/21 09:10 Blood Culture - Preliminary Blood - Venous No growth after 24 hours. Assessment and Plan (1) Osteomyelitis: Status: Acute (2) Type 2 diabetes mellitus: Status: Acute (3) HTN (hypertension): Status: Acute Plan 66-year-old female presents with osteomyelitis as demonstrated by MRI to her right 3rd toe distal phalanx. She states this is recurrent as she had similar episode approximately 5 months ago (cannot recall antibiotic). Currently she is pain-free 1.Osteomyelitis (right 3rd toe distal phalanx) -IV vancomycin and Zosyn -blood cultures- x 24; CRP negative ESR non specifice -ID consult; nelli chronic changes 2. Diabetes type 2 (requiring insulin) -hold Trulicity; Lantus as per outpatient dosing/metformin -cover with Lispro correctional scale -adjust as indicated 3. Hypertension -acceptable control on current therapies -continue outpatient medicines as per outpatient regimen - adjust as indicated 4. Hyperlipidemia -statin as ordered Lovenox Full code Will require at least 1 midnights to treat osteomyelitis with IV antibiotics; will need negative blood cultures and PICC prior to discharge Quality Stroke Does the patient have a stroke diagnosis?: No VTE Prior VTE?: No VTE Risk Level:: Medical - moderate - high VTE Device Contraindication: Treatment Not Indicated VTE Drug Contraindication: N/A - Med Ordered
[2021-12-08 16:42] VITALS: BP 136/60; PULSE 72; RESP 16; TEMP 36.2; O2SAT 99
--- NOTE | 2021-12-08 17:00 | PC.NURSE ---
pt AxOx3, ambulates to the bathroom. zosyn was hung @1700, pt tolerating okay. pt skin intact, no complaints of pain, N/V/COLEMAN
[2021-12-08 17:28] LABS: Glucose, Whole Blood 180 mg/dL (60-115)
[2021-12-08 20:45] VITALS: BP 152/70; PULSE 72; RESP 16; TEMP 36.5; O2SAT 98
[2021-12-08 20:52] LABS: Glucose, Whole Blood 256 mg/dL (60-115)
[2021-12-08] MEDS: Insulin Glargine,Hum.rec.anlog 100 UNIT/ML 10 ML VIAL 30 UNIT SUBCUT (21:09)
[2021-12-08] MEDS: Atorvastatin Calcium 20 MG TABLET PO (21:09)
[2021-12-09 02:00] VITALS: PULSE 69; RESP 16; TEMP 36.8; O2SAT 98
[2021-12-09] MEDS: Piperacillin Sodium/Tazobactam 4.5 GM in 0.9 % Sodium Chloride 100 ML IV ×2 (03:28→08:43)
[2021-12-09 04:31] VITALS: BP 122/54; PULSE 66; O2SAT 96
[2021-12-09] MEDS: Levothyroxine Sodium 112 MCG, Levothyroxine Sodium 25 MCG 137 MCG PO (06:33)
[2021-12-09 07:59] LABS: MANUAL DIFF FLAG NO
[2021-12-09 08:08] LABS: Basophils Percent Auto 0.3 % (0-2); Eosinophils Absolute Auto 0.3 X10*3/uL (0.0-0.4); Eosinophils Percent Auto 3.4 % (0-4); Hematocrit 35.4 % (37.0-47.0); Hemoglobin 11.4 g/dl (12.0-16.0); Imm Gran Abs Auto 0.03 X10*3/uL (0.00-0.03); Imm Gran Pct Auto 0.3 % (0.0-0.4); Lymphocytes Absolute Auto 2.8 X10*3/uL (1.2-4.9); Mean Corpuscular HGB Conc 32.2 g/dl (31.0-35.0); Mean Corpuscular Hemoglobin 30.2 pg (27.0-33.0); Mean Corpuscular Volume 93.9 fL (80.0-98.0); Mean Platelet Volume 9.4 fL (9.4-12.3); Monocytes Absolute Auto 0.9 X10*3/uL (0.1-1.2); Monocytes Percent Auto 8.5 % (2-11); Neutrophils Percent Auto 59.5 % (45-73); Platelet Count 392 X10*3/uL (160-400); Red Blood Count 3.77 X10*6/uL (4.20-5.50); Red Cell Distribution Width 13.6 % (11.0-16.0)
[2021-12-09 08:17] LABS: Anion Gap 13 (12-20); Blood Urea Nitrogen 16 mg/dL (9-16); Calcium 9.5 mg/dL (8.4-10.2); Carbon Dioxide 28 mmol/L (22-29); Chloride 103 mmol/L (96-108); Creatinine Clr Calc Pharmacy 68.8; Estimated Glomerular Filt Rate 59; Glucose Random 214 mg/dL (60-115); Potassium 4.6 mmol/L (3.3-5.1); Sodium 139 mmol/L (135-145)
[2021-12-09 08:29] LABS: Vancomycin Trough 8.2 mcg/mL (10.0-20.0)
[2021-12-09 08:32] VITALS: BP 165/73; PULSE 70; RESP 15; TEMP 36.7; O2SAT 93
--- NOTE | 2021-12-09 08:41 | PC.NURSE ---
pt amb (i) gait steady to br and btb. pt is a/o x 3 no sob/ailin noted skin pink warm dry speaks in full sentences.
[2021-12-09] MEDS: metFORMIN HCl 1,000 MG TABLET 1000 MG PO (08:42)
[2021-12-09] MEDS: Valsartan 160 MG TABLET PO (08:42)
[2021-12-09] MEDS: Pregabalin 75 MG CAPSULE PO (08:43)
[2021-12-09] MEDS: carvediloL 6.25 MG TABLET PO (08:43)
[2021-12-09] MEDS: 0.9 % Sodium Chloride Flush 3 ML SYRINGE IVFLUSH (08:44)
[2021-12-09] MEDS: Aspirin Enteric Coated 81 MG TABLET.DR PO (08:45)
[2021-12-09] MEDS: hydroCHLOROthiazide 12.5 MG TABLET PO (08:45)
--- NOTE | 2021-12-09 08:54 | P.CDIC_ITS ---
CDI Concurrent Query Documentation Clarification: PHYSICIAN'S DOCUMENTATION REQUEST Date of Query: 12/09/21 0854 Patient Name: Bozena Michele Admit Date: 12/07/21 Dear Doctor, A review of the medical record indicates additional documentation may be needed. Please review below and update the documentation accordingly. Clinical Indicators: Documentation on in the H&P indicates Osteomyelitis right 3rd toe. Risk Factors/Clinical Indicators/Treatments MRI right foot: distal 3rd toe ulceration and cellulitis with erosion/acute osteomyelitis of distal 3rd phalanx ID consult pending Based on the above, please clarify in the Progress Notes further specificity regarding the type of Osteomyelitis. Also include specific site with laterality and known or suspected infectious agent: * Acute osteomyelitis * Subacute osteomyelitis * Chronic osteomyelitis * Other (please specify) * Unable to determine Use of terms such as suspected, likely, concern for, or probable (associated with a specific diagnosis that is being evaluated, monitored, or treated as if it exists) are acceptable and can be coded in the inpatient setting, when documented at the time of discharge. Thank you, Carol Ann Martinez RN Extension: [phone] Please use your independent medical judgment in providing your response. THIS QUERY IS PART OF THE PERMANENT MEDICAL RECORD Provider Response: Other Other Diagnosis: chronic osteomyelitis
--- NOTE | 2021-12-09 08:59 | HE.PHANOTE ---
RE: EMELIA Increased dose to 1500mg q24h with next trough due at 0800 on 12/11/21. Per insight, 1250mg should have yielded a trough of 12 but yielded a trough of 8. This should get them to AUC goal, but trough is estimated to be 6. [place]
--- NOTE | 2021-12-09 09:01 | P.CDIC_ITS ---
CDI Concurrent Query Documentation Clarification: PHYSICIAN'S DOCUMENTATION REQUEST Date of Query: 12/09/21 0901 Patient Name: Bozena Michele Admit Date: 12/07/21 Dear Doctor, A review of the medical record indicates additional documentation may be indicated. Please review below and update the documentation accordingly. Clinical Indicators: Risk Factors/Clinical Indicators/Treatments Per ED note 12/07/21: small wound to the plantar aspect of the right 3rd toe. history DM 1 Based on the above, could you please provide, in the Progress Notes, further information regarding the ulcer/wound: * Type (etiology) of ulcer/wound: * Diabetic ulcer * Venous stasis ulcer * Arterial (ischemic) ulcer * Pressure (decubitus) ulcer * Traumatic wound * Other * Unable to determine * For a non-pressure ulcer, please indicate the depth/severity: * Limited to the breakdown of skin * With fat layer exposed * With necrosis of muscle * With necrosis of bone * Other * Unable to determine * If a pressure ulcer, please also include the stage* of the ulcer: * Stage 1 - Skin intact, non-blanchable redness * Stage 2 - Partial thickness loss of dermis, includes intact or open blister * Stage 3 - Full thickness tissue not including bone, tendon, or muscle * Stage 4 - Full thickness tissue loss, including exposed bones, tendon, or muscle * Unstageable - Full thickness tissue loss in which the base of the ulcer is covered by slough (yellow, thrasher, aaron, green or brown) and/or eschar (thrasher, brown, or black) in the wound bed. * Suspected deep tissue injury - Purple or maroon localized area of discolored intact skin or blood-filled blister due to damage of underlying soft tissues from pressure and/or shear. The area may be preceded by tissue that is painful, firm, mushy, boggy, warmer, or cooler as compare to adjacent tissue. * Unable to determine *Source: National Pressure Ulcer Advisory Panel (NPUAP) Use of terms such as suspected, likely, concern for, or probable (associated with a specific diagnosis that is being evaluated, monitored, or treated as if it exists) are acceptable and can be coded in the inpatient setting, when documented at the time of discharge. Thank you, Carol Ann Martinez RN Extension: [phone] Please use your independent medical judgment in providing your response. THIS QUERY IS PART OF THE PERMANENT MEDICAL RECORD Provider Response: Other Other Diagnosis: Traumatic wound right 3rd toe
--- NOTE | 2021-12-09 09:01 | MHC.CDI.CONC ---
CDI Concurrent Query Documentation Clarification: PHYSICIAN'S DOCUMENTATION REQUEST Date of Query: 12/09/21 0901 Patient Name: Bozena Michele Admit Date: 12/07/21 Dear Doctor, A review of the medical record indicates additional documentation may be indicated. Please review below and update the documentation accordingly. Clinical Indicators: Risk Factors/Clinical Indicators/Treatments Per ED note 12/07/21: small wound to the plantar aspect of the right 3rd toe. history DM 1 Based on the above, could you please provide, in the Progress Notes, further information regarding the ulcer/wound: Type (etiology) of ulcer/wound: Diabetic ulcer Venous stasis ulcer Arterial (ischemic) ulcer Pressure (decubitus) ulcer Traumatic wound Other Unable to determine For a non-pressure ulcer, please indicate the depth/severity: Limited to the breakdown of skin With fat layer exposed With necrosis of muscle With necrosis of bone Other Unable to determine If a pressure ulcer, please also include the stage* of the ulcer: Stage 1 - Skin intact, non-blanchable redness Stage 2 - Partial thickness loss of dermis, includes intact or open blister Stage 3 - Full thickness tissue not including bone, tendon, or muscle Stage 4 - Full thickness tissue loss, including exposed bones, tendon, or muscle Unstageable - Full thickness tissue loss in which the base of the ulcer is covered by slough (yellow, thrasher, aaron, green or brown) and/or eschar (thrasher, brown, or black) in the wound bed. Suspected deep tissue injury - Purple or maroon localized area of discolored intact skin or blood-filled blister due to damage of underlying soft tissues from pressure and/or shear. The area may be preceded by tissue that is painful, firm, mushy, boggy, warmer, or cooler as compare to adjacent tissue. Unable to determine *Source: National Pressure Ulcer Advisory Panel (NPUAP) Use of terms such as suspected, likely, concern for, or probable (associated with a specific diagnosis that is being evaluated, monitored, or treated as if it exists) are acceptable and can be coded in the inpatient setting, when documented at the time of discharge. Thank you, Carol Ann Martinez RN Extension: [phone] Please use your independent medical judgment in providing your response. THIS QUERY IS PART OF THE PERMANENT MEDICAL RECORD Provider Response: Other Other Diagnosis: Traumatic wound right 3rd toe
--- NOTE | 2021-12-09 11:37 | P.DS_ITS ---
DS: Providers Provider Date of Service: 12/09/21 Date of admission: 12/07/21 12:18 Date of discharge: 12/09/21 Primary care physician: Carin Bolden NP Consults: 12/08/21 07:31 Consult to Infectious Diseases Routine Consulting Provider: Sondra Dietrich Reason for consultation: Query chronic vs acute osteomyelitis Has provider been notified: No DS: Diagnosis Discharge Diagnosis (1) Chronic osteomyelitis: Status: Acute (2) Type 2 diabetes mellitus: Status: Acute (3) HTN (hypertension): Status: Acute DS: Summary Hospital Course Hospital Course: 66-year-old female presents with what she claims is a bone infection in her right 3rd toe.? She states she had an MRI done by her PCP who called stated she needed to go to the emergency room for IV antibiotics.? When reviewed, MRIs consistent with 3rd right toe distal phalanx osteomyelitis.? When further queried, she states she had similar episode in [place] approximately 5 months ago.? She adequately describes a PICC line and 6 weeks of IV antibiotics.? She states her toe was not read however PCP wanted to follow up the MRI to document osteomyelitis had resolved.? She denies fever and chills; she denies pain.? She states it has not affected her gait.? She will be admitted for further treatment and investigation Hospital Course Admitted to the hospital and initially started on IV vancomycin/Zosyn. CRPP ultimately came back negative with equivocal ESR. Discussed with Infectious Disease; these are chronic changes without acute issues. Patient states she did have some clear drainage from that toe however is not erythematous or tender. After discussion it was decided that she will be discharged on a course of oral Augmentin to follow-up with her PCP. Time Spent with Patient Time attestation: Total time spent providing and/or coordinating discharge services: Discharge coordination time: Greater than 30 minutes Quality: Stroke Does the patient have a stroke diagnosis?: No Physical Exam Vital Signs: Vital Signs: Last Vital Signs Temp 98.0 F 12/09/21 08:32 Pulse 70 12/09/21 08:32 Resp 15 12/09/21 08:32 BP 165/73 H 12/09/21 08:32 Pulse Ox 93 12/09/21 08:32 BMI result Body Mass Index 34.8 Const: Other: Awake alert oriented x3 no acute distress Resp: Other: Clear to auscultation bilaterally no rales rhonchi or wheezes Cardio: Other: No S4; positive S1-S2; no S3 murmurs or gallops GI: Other: Soft nontender nondistended with normoactive bowel sounds Neuro: Other: Cranial nerves 2-12 grossly intact as tested. Motor is 5/5 all extremities. Sensation is intact distally; no monofilament available however does respond appropriately to 3.0 nylon suture material. Positional sense is intact great toes Extrem: Other: No edema bilaterally. No erythema or pain elicited right 3rd toe DS: Data Data Completed and Pending Labs on day of discharge: Laboratory Results - last 24 hr 12/08/21 12/08/21 12/08/21 12:29 17:24 20:49 WBC RBC Hgb Hct MCV MCH MCHC RDW Plt Count MPV Immature Gran % (Auto) Neut % (Auto) Lymph % (Auto) Brantley % (Auto) Eos % (Auto) Baso % (Auto) Lymph # (Auto) Brantley # (Auto) Eos # (Auto) Baso # (Auto) Abs Immat Gran (auto) Absolute Neuts (auto) Absolute Nucleated RBC Nucleated RBC % (auto) Sodium Potassium Chloride Carbon Dioxide Anion Gap BUN Creatinine Estim Creat Clear Calc Estimated GFR POC Glucose 125 H 180 H 256 H Random Glucose Calcium Vancomycin Trough 12/09/21 12/09/21 12/09/21 07:54 07:54 07:54 WBC 10.0 RBC 3.77 L Hgb 11.4 L Hct 35.4 L MCV 93.9 MCH 30.2 MCHC 32.2 RDW 13.6 Plt Count 392 MPV 9.4 Immature Gran % (Auto) 0.3 Neut % (Auto) 59.5 Lymph % (Auto) 28.0 Brantley % (Auto) 8.5 Eos % (Auto) 3.4 Baso % (Auto) 0.3 Lymph # (Auto) 2.8 Brantley # (Auto) 0.9 Eos # (Auto) 0.3 Baso # (Auto) 0.0 Abs Immat Gran (auto) 0.03 Absolute Neuts (auto) 6.0 Absolute Nucleated RBC 0.000 Nucleated RBC % (auto) 0.0 Sodium 139 Potassium 4.6 Chloride 103 Carbon Dioxide 28 Anion Gap 13 BUN 16 Creatinine 0.95 Estim Creat Clear Calc 68.8 Estimated GFR 59 POC Glucose Random Glucose 214 H Calcium 9.5 Vancomycin Trough 8.2 L Preliminary micro results at discharge 12/07/21 09:21 Blood Culture - Preliminary Blood - Venous No growth after 48 hours. 12/07/21 09:10 Blood Culture - Preliminary Blood - Venous No growth after 48 hours. Discharge Plan Discharge Patient Disposition: Home, Self-Care Discharge Diagnosis: Chronic Osteomyelitis Referrals: Crain Bolden, SMALL ENGINE TECHNICIAN [Primary Care Provider] - 1 Week Discharge Medications: New amoxicillin-pot clavulanate 875-125 mg tablet 1 tab PO BID Qty: 14 0RF hydroxyzine HCl 25 mg tablet 25 mg PO TID PRN (Reason: anxiety) Qty: 30 0RF Continued levothyroxine 137 mcg tablet 1 tab PO DAILY 0RF carvedilol 6.25 mg tablet 1 tab PO DAILY 0RF aspirin 81 mg tablet,delayed release (DR/EC) 1 tab PO DAILY 0RF metformin 1,000 mg tablet 1 tab PO BID 0RF irbesartan-hydrochlorothiazide 300-12.5 mg tablet 1 tab PO DAILY 0RF rosuvastatin 5 mg tablet 1 tab PO DAILY 0RF pregabalin 75 mg capsule 1 cap PO DAILY 0RF Lantus Solostar U-100 Insulin 100 unit/mL (3 mL) insulin pen 30 unit subcut BEDTIME 0RF Trulicity 0.75 mg/0.5 mL pen injector 0.75 mg subcut QWEEK 0RF cyclosporine [Restasis] 0.05 % Dropperette 1 drp OPHTHALMIC (EYE) Q12H 0RF Discharge Orders: Discharge Order (Routine); Ordered 12/09/21 Ordered By: Jacoby Liang Diet: advance to usual diet Activity on Discharge: As tolerated Stand Alone Forms: Patient Portal Discharge page Print Language: Danish Care Plan Goals: Complete course of Augmentin. Follow up with PCP Health Concerns: Changes on MRI/XR chronic Plan of Treatment: as ordered Assessment: as per DC summary
== END 2021-12-09 16:45 | disposition home or self-care (01) | DRG 638 ==
LOC: HO.ED 09:59 → HO.EDOVER 12:24 → HO.S3 12-08 15:44 → HO.EDOVER 12-08 16:36
PROVIDERS: Physician Assistant Medical; Admitting Provider Hospitalist; Emergency Provider Emergency Medicine; PCP Nurse Practitioner Primary Care; Visit Provider Hospitalist
DX: E10.69 Type 1 diabetes mellitus with other specified complication (principal); M86.671 Other chronic osteomyelitis, right ankle and foot; I10 Essential (primary) hypertension; E78.5 Hyperlipidemia, unspecified; S91.134S Puncture wound without foreign body of right lesser toe(s) without damage to nail, sequela; X58.XXXS Exposure to other specified factors, sequela; E03.9 Hypothyroidism, unspecified; Z20.822 Contact with and (suspected) exposure to COVID-19; Z79.4 Long term (current) use of insulin; Z79.82 Long term (current) use of aspirin; Z79.84 Long term (current) use of oral hypoglycemic drugs; Z79.899 Other long term (current) drug therapy
CPT/HCPCS: 36415; 80048; 80053; 80202; 82947; 83605; 85025; 85652; 86140; 87040; 87635; 99285; J1650; J2543; J3370

== ENCOUNTER 2021-12-10 08:02 | Outpatient (REF) | payer MEDICARE, SELFPAY ==
--- NOTE | ~2021-12-10 | US_ITS ---
EXAMINATION: US VENOUS ULTRASOUND WITH DOPPLER LOWER EXTREMITY, BILATERAL CLINICAL INFORMATION: Right foot wound. Pain. COMPARISON: None TECHNIQUE: Ultrasound of the deep veins is performed from the hip to the calf with compression sonography and color and pulse Doppler assessment. Spectral analysis with color-flow imaging is performed. FINDINGS: RIGHT: There is normal venous compression and respiratory variation and augmented flow. The visualized common femoral vein, superficial femoral vein, profunda femoral vein, popliteal vein, and the trifurcation region shows no evidence of deep venous thrombosis. There is no significant popliteal fossa cyst. LEFT: There is normal venous compression and respiratory variation and augmented flow. The visualized common femoral vein, superficial femoral vein, profunda femoral vein, popliteal vein, and the trifurcation region shows no evidence of deep venous thrombosis. There is no significant popliteal fossa cyst. If the patient's symptoms persist, followup ultrasound in 5 days 7 days might be of value to exclude proximal propagation from a non-visualized calf vein. US/US venous duplex LE BI IMPRESSION: No DVT demonstrated in the bilateral lower extremity.
== END 2021-12-10 08:03 | disposition home or self-care (01) ==
LOC: HO.US 08:02
PROVIDERS: PCP Nurse Practitioner Primary Care; Visit Provider Nurse Practitioner Primary Care
DX: M79.671 Pain in right foot (principal); I25.10 Atherosclerotic heart disease of native coronary artery without angina pectoris; E11.9 Type 2 diabetes mellitus without complications; S91.301A Unspecified open wound, right foot, initial encounter; X58.XXXA Exposure to other specified factors, initial encounter; Y93.9 Activity, unspecified; Y92.9 Unspecified place or not applicable; Y99.9 Unspecified external cause status
CPT/HCPCS: 93970

== ENCOUNTER → 2021-12-11 15:57 | Outpatient (BNVA) | payer MEDICARE, SELFPAY | PROVIDERS: PCP Nurse Practitioner Primary Care; Visit Provider Obstetrics & Gynecology | DX: N95.0 Postmenopausal bleeding (principal) | CPT/HCPCS: Q3014 ==

== ENCOUNTER 2022-01-22 11:18 | Outpatient (REF) | payer OTHER, SELFPAY ==
--- NOTE | ~2022-01-22 | XR_ITS ---
EXAMINATION: XR ANKLE, LEFT CLINICAL INFORMATION: Pain COMPARISON: None TECHNIQUE: AP, lateral, and mortise views of the left ankle. FINDINGS: The bones and soft tissues are normal. No fracture. Alignment is anatomic. Joint spaces are maintained. No joint effusion. There is a small osseous density just medial to the tip of the medial malleolus probably incompletely fused osteophyte or accessory ossicle. There are posterior and inferior calcaneal spurs. There are vascular calcifications. XR/XR ankle LT 2V IMPRESSION: Moderate size calcaneal spurs. Small ossific density medial to the talus, in the absence of history of trauma this is probably incompletely fused osteophyte or accessory ossicle. Vascular calcifications. No fracture or dislocation.
== END 2022-01-22 11:19 | disposition home or self-care (01) ==
LOC: HO.XRAY 11:18
PROVIDERS: Absent Provider Nurse Practitioner Primary Care; PCP Nurse Practitioner Primary Care; Visit Provider General Practice
DX: M25.572 Pain in left ankle and joints of left foot (principal)
CPT/HCPCS: 73600

== ENCOUNTER → 2022-04-17 10:47 | Outpatient (BNVA) | payer OTHER, SELFPAY | PROVIDERS: PCP Nurse Practitioner Primary Care; Visit Provider Physician Assistant | DX: R20.2 Paresthesia of skin (principal) | CPT/HCPCS: 99202 ==

== ENCOUNTER → 2022-04-22 11:19 | Outpatient (BNVA) | payer OTHER, SELFPAY | PROVIDERS: PCP Nurse Practitioner Primary Care; Referring Provider Nurse Practitioner Primary Care; Visit Provider Nurse Practitioner | DX: Z01.818 Encounter for other preprocedural examination (principal); D12.6 Benign neoplasm of colon, unspecified; G47.33 Obstructive sleep apnea (adult) (pediatric) | CPT/HCPCS: 99202 ==

== ENCOUNTER 2022-05-20 13:00 | Outpatient (REF) | payer OTHER, SELFPAY ==
--- NOTE | ~2022-05-20 | US_ITS ---
EXAMINATION: US VENOUS ULTRASOUND WITH DOPPLER LOWER EXTREMITY, LEFT CLINICAL INFORMATION: Left leg pain. COMPARISON: None TECHNIQUE: Ultrasound of the deep veins is performed from the hip to the calf with compression sonography and color and pulse Doppler assessment. Spectral analysis with color-flow imaging is performed. FINDINGS: There is normal venous compression and respiratory variation and augmented flow. The visualized common femoral vein, superficial femoral vein, profunda femoral vein, popliteal vein, and the trifurcation region shows no evidence of deep venous thrombosis. There is no significant popliteal fossa cyst. There is enlarged lymph node in the groin measuring 4.0 x 1.5 x 3.6 cm and appears slightly atypical. US/US venous duplex LE LT IMPRESSION: No DVT demonstrated in the left lower extremity. Enlarged atypical appearing left groin lymph node. Suggest ultrasound-guided biopsy
== END 2022-05-20 13:01 | disposition home or self-care (01) ==
LOC: HO.US 13:00
PROVIDERS: PCP Nurse Practitioner Primary Care; Visit Provider Family Medicine
DX: M79.605 Pain in left leg (principal); M79.89 Other specified soft tissue disorders
CPT/HCPCS: 93971

== ENCOUNTER 2022-05-27 15:20 | Outpatient (REF) | payer OTHER, SELFPAY ==
--- NOTE | ~2022-05-27 | XR_ITS ---
EXAMINATION: XR ANKLE, LEFT XR FOOT, LEFT CLINICAL INFORMATION: Pain. COMPARISON: X-ray 01/22/2022. TECHNIQUE: Ankle 2 views. Foot 3 views. FINDINGS: ANKLE: Redemonstrated is a small osseous density medial to the talus, could represent sequela of prior trauma or an ossicle. Mild spurring of the tip of the medial malleolus. Ankle mortise is maintained. Mild ankle soft tissue swelling. As seen on the lateral projection, there is a chronic-appearing calcification/ossification in the soft tissues posterior to the distal tibia, could reflect dystrophic changes. There is a calcification dorsal to the talonavicular joint, probably vascular. No acute fracture is otherwise seen. FOOT: Large posterior calcaneal spur. Moderate plantar calcaneal spur. Os peroneum present. No acute fracture or dislocation is seen in the foot. Tarsometatarsal alignment is within normal limits. XR/XR ankle LT min 3V IMPRESSION: Moderate to large calcaneal spurring. Stable small ossific density medial to the talus, could represent sequela of prior trauma or accessory ossicle. No acute fracture or dislocation seen.
--- NOTE | ~2022-05-27 | XR_ITS ---
EXAMINATION: XR ANKLE, LEFT XR FOOT, LEFT CLINICAL INFORMATION: Pain. COMPARISON: X-ray 01/22/2022. TECHNIQUE: Ankle 2 views. Foot 3 views. FINDINGS: ANKLE: Redemonstrated is a small osseous density medial to the talus, could represent sequela of prior trauma or an ossicle. Mild spurring of the tip of the medial malleolus. Ankle mortise is maintained. Mild ankle soft tissue swelling. As seen on the lateral projection, there is a chronic-appearing calcification/ossification in the soft tissues posterior to the distal tibia, could reflect dystrophic changes. There is a calcification dorsal to the talonavicular joint, probably vascular. No acute fracture is otherwise seen. FOOT: Large posterior calcaneal spur. Moderate plantar calcaneal spur. Os peroneum present. No acute fracture or dislocation is seen in the foot. Tarsometatarsal alignment is within normal limits. XR/XR foot LT min 3V IMPRESSION: Moderate to large calcaneal spurring. Stable small ossific density medial to the talus, could represent sequela of prior trauma or accessory ossicle. No acute fracture or dislocation seen.
== END 2022-05-27 15:21 | disposition home or self-care (01) ==
LOC: HO.XRAY 15:20
PROVIDERS: Absent Provider Nurse Practitioner Primary Care; PCP Nurse Practitioner Primary Care; Visit Provider Family Medicine
DX: M25.572 Pain in left ankle and joints of left foot (principal); M79.672 Pain in left foot
CPT/HCPCS: 73610; 73630

== ENCOUNTER 2022-06-02 10:26 | Outpatient (REF) | payer OTHER, SELFPAY ==
--- NOTE | ~2022-06-02 | US_ITS ---
EXAMINATION: US ULTRASOUND-GUIDED LEFT GROIN LYMPH NODE BIOPSY CLINICAL INFORMATION: Enlarged lymph node. COMPARISON: None. TECHNIQUE: Following explaining ultrasound-guided left groin lymph node biopsy, procedure, benefits and risks including high risk of bleeding as patient is on aspirin, a written consent was obtained in the presence of a film developer and cytotechnologist/cytology supervisor. Peroneal ultrasound imaging was obtained through the left groin and an optimal site was selected and marked on the skin. The marked site was cleaned and draped in the usual sterile manner. 1% lidocaine was inserted at the puncture site. Through a small skin incision, an 18-gauge biopsy gun was administered from the skin into the lymph node and 2 core biopsies were obtained from the left groin lymph node. After obtaining 2 core biopsies with an 18-gauge needle and with moderate bleeding, a 20-gauge guide needle was advanced followed by a 20-gauge biopsy needle and 2 more core biopsies were obtained. There is [id number] bleeding seen in every biopsy sample making it difficult for the pathologist to evaluate the tissue sample. Postprocedure, complete hemostasis was achieved. Compression was held in the left groin for 10 minutes. Sterile dressing was applied postprocedure. Instructions were given to patient that if she has pain or bleeding in the next 24 hours, she should visit the ER department. Simple dressing was applied to the left groin and patient left department in good standing. FINDINGS: There is a heterogeneous lymph node left groin. Ultrasound-guided successful left groin lymph node core biopsy performed. However, there was moderate blood visualized within the core biopsies making it hard for the pathologist to evaluate the tissue. Patient was made aware if this biopsy was unsuccessful, she will have to get another biopsy and discontinue aspirin at least 3-5 days before the biopsy. Patient understood the entire procedure and was ready for a second biopsy if needed. US/US biopsy lymph node IMPRESSION: Successful ultrasound-guided left lymph node biopsy performed without immediate complications.
[2022-06-02] MEDS: Lidocaine HCl 1 % MPF 5 ML VIAL SUBCUT (11:55)
[2022-06-05 10:19] LABS: LLE Interpretation QNS
== END 2022-06-02 10:27 | disposition home or self-care (01) ==
LOC: HO.US 10:26
PROVIDERS: Radiology Diagnostic Radiology; Visit Provider Family Medicine
DX: R59.1 Generalized enlarged lymph nodes (principal); M79.89 Other specified soft tissue disorders
CPT/HCPCS: 36415; 38505; 76942; 88184; 88185; 88300; 88305; 88333; 88341; 88342

== ENCOUNTER → 2022-06-24 07:47 | Outpatient (BNVA) | payer OTHER, MEDICAID, SELFPAY | PROVIDERS: PCP Nurse Practitioner Primary Care; Visit Provider Internal Medicine Endocrinology, Diabetes & Metabolism | DX: E11.9 Type 2 diabetes mellitus without complications (principal) | CPT/HCPCS: 82947; 83036; 99202 ==

== ENCOUNTER 2022-08-05 08:35 | Outpatient (REF) | payer OTHER, SELFPAY ==
--- NOTE | ~2022-08-05 | US_ITS ---
EXAMINATION: ULTRASOUND GUIDED LYMPH NODE BIOPSY CLINICAL INFORMATION: Prominent left inguinal lymph nodes. COMPARISON: Previous ultrasound guided left groin biopsy and left leg venous ultrasound May 2022. TECHNIQUE: Procedure and risks and benefits including bleeding and infection was discussed with the patient through an acid correction hand and informed consent was obtained. The left groin was prepped and draped in the usual sterile fashion. The skin and soft tissues were anesthetized with 1% lidocaine plain. Using ultrasound guidance and a coaxial system, access to the prominent left inguinal lymph node was obtained. 5 20-gauge core biopsies were obtained. Specimens were placed in formalin and flow cytometry solution. FINDINGS: There is a 2.9 x 1.1 cm in sagittal AP dimension left inguinal lymph node that was targeted for core biopsy. US/US biopsy lymph node IMPRESSION: Ultrasound left inguinal lymph node biopsy.
[2022-08-05] MEDS: Lidocaine HCl 1 % MPF 5 ML VIAL SUBCUT (10:07)
== END 2022-08-05 08:36 | disposition home or self-care (01) ==
LOC: HO.US 08:35
PROVIDERS: Radiology Diagnostic Radiology; Visit Provider Nurse Practitioner Primary Care
DX: M79.605 Pain in left leg (principal); M79.89 Other specified soft tissue disorders; R59.1 Generalized enlarged lymph nodes
CPT/HCPCS: 36415; 38505; 76942; 88184; 88185; 88300; 88305; 88341; 88342; 88344; 88360

== ENCOUNTER 2022-08-21 11:19 | Outpatient (REF) | payer OTHER, SELFPAY ==
--- NOTE | 2022-08-21 08:45 | EMG_ITS ---
Left tibial and peroneal motor studies were performed. Left superficial peroneal and sural sensory studies were performed. Tibial H-reflex was obtained, and paraspinal muscles were checked with needle. 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 MD SANA Villanueva/ZECHARIAHL / [id number]
== END 2022-08-21 11:20 | disposition home or self-care (01) ==
LOC: HO.NEURO 11:19
PROVIDERS: Visit Provider Physician Assistant
DX: R20.0 Anesthesia of skin (principal)
CPT/HCPCS: 95886; 95909

== ENCOUNTER 2022-08-22 12:38 | Outpatient (REF) | payer OTHER, SELFPAY ==
--- NOTE | ~2022-08-22 | MM_ITS ---
EXAMINATION: MM DIAGNOSTIC DIGITAL BREAST TOMOSYNTHESIS, BILATERAL Targeted left breast ultrasound CLINICAL INFORMATION: Left breast asymmetry noted on cardiac MRI. Previous reduction mammoplasty and left breast biopsy. The lifetime risk of breast cancer based on the Tyrer-Cuzick Model is 13.6%. COMPARISON: Mammography: 11/22/2021 and studies dating back to 04/08/2010 as well as cardiac MRI of 05/13/2022. TECHNIQUE: Digital breast tomosynthesis is performed in both the craniocaudal and mediolateral oblique views along with computer-aided detection (CAD). Synthesized 2D images are generated from the tomosynthesis. TARGETED LEFT BREAST ULTRASOUND: FINDINGS: There are scattered areas of fibroglandular density (ACR BI-RADS breast composition Category b). There are no new significant masses, abnormal calcifications, or other abnormalities. There is stable dense asymmetric parenchyma in the left retroareolar region extending laterally. There is bilateral post surgical change. Targeted ultrasound evaluation of the left breast demonstrated dense parenchyma in the retroareolar region with extension laterally with no underlying discrete mass being identified. Results are discussed with the patient at time of visit. MM/MM tomosynthesis diagnostic BI IMPRESSION: No mammographic or ultrasound evidence of malignancy. ASSESSMENT: BI-RADS 1: Negative RECOMMENDATION: Routine annual mammography screening. This patient's information was entered into a reminder system with a target due date for their next mammogram.
== END 2022-08-22 12:39 | disposition home or self-care (01) ==
LOC: HO.MAMMO 12:38
PROVIDERS: PCP Nurse Practitioner Primary Care; Visit Provider Nurse Practitioner Primary Care
DX: R92.8 Other abnormal and inconclusive findings on diagnostic imaging of breast (principal)
CPT/HCPCS: 76642; 77062; 77066

== ENCOUNTER → 2022-08-25 09:07 | Outpatient (BNVA) | payer OTHER, SELFPAY | PROVIDERS: PCP Nurse Practitioner Primary Care; Visit Provider Registered Nurse Diabetes Educator | DX: E11.9 Type 2 diabetes mellitus without complications (principal) | CPT/HCPCS: 99211 ==

== ENCOUNTER 2022-08-27 08:58 | Day surgery (SDC) | payer OTHER, MEDICAID, SELFPAY ==
[2022-08-21 15:08] VITALS: BMI 33.7
--- NOTE | 2022-08-26 13:33 | P.CONAN_ITS ---
Documented by User: Bethany Reyes NP 08/26/22 13:45 HPI - Anesthesia Eval Consult details Narrative: 66yo F for Colonoscopy PMFSH Active Problems Active Problems: All Active Problems (Updated 08/24/22 @ 18:36 by Michael Mehta MD) Postmenopausal bleeding (Acute) Type 2 diabetes mellitus (Acute) Chronic osteomyelitis (Acute) Pre-op exam (Acute) Tubular adenoma of colon (Acute) Coronary artery disease (Acute) JEVON (obstructive sleep apnea) (Acute) Paresthesia (Acute) Inguinal lymphadenopathy (Acute) HTN (hypertension) (Acute) Past Medical History Medical History (Updated 08/24/22 @ 18:36 by Michael Mehta MD) CAD (coronary artery disease) Celiac disease Depression High cholesterol HTN (hypertension) Hypothyroid Insulin dependent type 1 diabetes mellitus Palpitations Family History Family History (Updated 08/19/22 @ 14:32 by Lou Pizano CMA) Mother Diabetes High blood pressure Father Diabetes High blood pressure Paternal Aunt Bone cancer Sister Breast cancer Sister Lymph node cancer Surgical History Surgical History (Updated 08/19/22 @ 14:43 by Michael Mehta MD) H/O abdominoplasty H/O bilateral breast reduction surgery H/O heart artery stent History of arthroplasty of left knee History of carpal tunnel release of both wrists History of section Hx of colonoscopy Social History Social History (Updated 08/19/22 @ 14:34 by Lou Pizano CMA) Household Members: None Housing: Apartment Are you a primary acute care physical therapist to a significant other at home: No Do you presently have visiting nurse or other home services: No Alcohol intake: never Patient Tobacco Use Status: Never used Tobacco Use of substances other than those prescribed or required for medical reasons: No Have you been hit, kicked, punched, or otherwise hurt by someone within the past year? If so, by whom?: No Are you DNR?: No Advance Directives: No Advance Directives Information Provided: Yes Advance Directives on File: No Recently lost weight without trying: No Eating poorly because of decreased appetite: No Nutrition Risks: No Nutritional Risk service: No Current occupational status: disabled Meds Allergies Allergy/AdvReac Type Severity Reaction Status Date / Time No Known Allergies Allergy Verified 08/21/22 14:56 Home Medications Medication Instructions Recorded Confirmed Last Taken Type aspirin 81 mg tablet,delayed 1 tab PO DAILY 12/07/21 08/21/22 12/06/21 History release carvedilol 6.25 mg tablet 1 tab PO DAILY 12/07/21 08/21/22 12/06/21 History cyclosporine 0.05 % eye drops in a 1 drp ophthalmic (eye) Q12H 12/07/21 08/21/22 12/06/21 History dropperette (Restasis) insulin glargine 100 unit/mL (3 30 unit subcut BEDTIME 12/07/21 08/21/22 12/06/21 History mL) subcutaneous pen (Lantus Solostar U-100 Insulin) levothyroxine 137 mcg tablet 1 tab PO DAILY 12/07/21 08/21/22 12/06/21 History pregabalin 75 mg capsule 1 cap PO DAILY 12/07/21 08/21/22 12/06/21 History omeprazole 20 mg capsule,delayed 20 mg PO DAILY 04/17/22 08/21/22 Unknown History release dulaglutide 3 mg/0.5 mL 4.5 mg subcut QWEEK 04/22/22 08/21/22 Unknown History subcutaneous pen injector (Trulicity) insulin aspart U-100 100 unit/mL 30 unit subcut DAILY 04/22/22 08/21/22 Unknown History (3 mL) subcutaneous pen (Novolog Flexpen U-100 Insulin aspart) metformin 1,000 mg tablet 1,000 mg PO BID 04/22/22 08/21/22 Unknown History rosuvastatin 10 mg tablet 10 mg PO BEDTIME 04/22/22 08/21/22 Unknown History blood sugar diagnostic (FreeStyle #10 ea 06/24/22 08/19/22 Unknown History Lite Strips) blood-glucose meter (FreeStyle 06/24/22 08/19/22 Unknown History Lite Meter kit) lancets 28 gauge (FreeStyle 06/24/22 08/19/22 Unknown History Lancets) multivitamin 1 tab PO DAILY 06/24/22 08/21/22 Unknown History ketoconazole 2 % shampoo 1 appl topical DAILY 08/18/22 08/21/22 Unknown History melatonin 3 mg tablet 1 tab PO BEDTIME PRN insomnia 08/18/22 08/19/22 Unknown History sacubitril 49 mg-valsartan 51 mg 1 tab PO DAILY 08/19/22 08/21/22 Unknown History tablet (Entresto) Exam Exam Date and Time: August 26, 2022 1333 Height,Weight and Vital Signs: Height 5 ft 7 in Weight 97.9 kg Pertinent Lab Results Pertinent Lab Results: Laboratory Tests 08/19/22 08/19/22 15:04 15:04 WBC 9.5 Hgb 12.9 Hct 38.9 Plt Count 406 H Sodium 137 Potassium 4.6 Chloride 104 Carbon Dioxide 28 BUN 21 H Creatinine 0.98 Narrative Narrative: EKG 06/2022 SR with marked SA @ 84 LAFB LVH with QRS widening Cannot r/o septal infarct, age undetermined 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 No signif valve disease. Mild ascending aorta dilation 3.7cm 48 hour Holter 02/2022 NSR with rare PACs with 1 atrial pairs and rare PVCs with no pauses noted with no symptoms Cardiac MRI 04/2022 mildly diminished global LV function with EF 40%. Some slightly dyssynchronous contraction about the apex which could reflect minor conduction abnormality or gating artifact. Late gadolinium enhancement revealed no abnormalities. Mildly diminished global function in the right ventricle. Assessment and Plan Assessment Anesthesia Assessment: Chart Reviewed Documented by User: Anthony Lockett MD 08/27/22 10:25 [facility] Past Medical History Medical History (Updated 08/24/22 @ 18:36 by Michael Mehta MD) CAD (coronary artery disease) Celiac disease Depression High cholesterol HTN (hypertension) Hypothyroid Insulin dependent type 1 diabetes mellitus Palpitations Family History Family History (Updated 08/19/22 @ 14:32 by Lou Pizano CMA) Mother Diabetes High blood pressure Father Diabetes High blood pressure Paternal Aunt Bone cancer Sister Breast cancer Sister Lymph node cancer Family history of problems with anesthesia: No Surgical History Surgical History (Updated 08/19/22 @ 14:43 by Michael Mehta MD) H/O abdominoplasty H/O bilateral breast reduction surgery H/O heart artery stent History of arthroplasty of left knee History of carpal tunnel release of both wrists History of section Hx of colonoscopy History of Problems with Anesthesia: No Social History Social History (Updated 08/19/22 @ 14:34 by Lou Pizano CMA) Household Members: None Housing: Apartment Are you a primary acute care physical therapist to a significant other at home: No Do you presently have visiting nurse or other home services: No Alcohol intake: never Patient Tobacco Use Status: Never used Tobacco Use of substances other than those prescribed or required for medical reasons: No Have you been hit, kicked, punched, or otherwise hurt by someone within the past year? If so, by whom?: No Are you DNR?: No Advance Directives: No Advance Directives Information Provided: Yes Advance Directives on File: No Recently lost weight without trying: No Eating poorly because of decreased appetite: No Nutrition Risks: No Nutritional Risk service: No Current occupational status: disabled Meds Allergies Allergy/AdvReac Type Severity Reaction Status Date / Time No Known Allergies Allergy Verified 08/21/22 14:56 Home Medications Medication Instructions Recorded Confirmed Last Taken Type aspirin 81 mg tablet,delayed 1 tab PO DAILY 12/07/21 08/21/22 12/06/21 History release carvedilol 6.25 mg tablet 1 tab PO DAILY 12/07/21 08/21/22 12/06/21 History cyclosporine 0.05 % eye drops in a 1 drp ophthalmic (eye) Q12H 12/07/21 08/21/22 12/06/21 History dropperette (Restasis) insulin glargine 100 unit/mL (3 30 unit subcut BEDTIME 12/07/21 08/21/22 12/06/21 History mL) subcutaneous pen (Lantus Solostar U-100 Insulin) levothyroxine 137 mcg tablet 1 tab PO DAILY 12/07/21 08/21/22 12/06/21 History pregabalin 75 mg capsule 1 cap PO DAILY 12/07/21 08/21/22 12/06/21 History omeprazole 20 mg capsule,delayed 20 mg PO DAILY 04/17/22 08/21/22 Unknown History release dulaglutide 3 mg/0.5 mL 4.5 mg subcut QWEEK 04/22/22 08/21/22 Unknown History subcutaneous pen injector (Trulicity) insulin aspart U-100 100 unit/mL 30 unit subcut DAILY 04/22/22 08/21/22 Unknown History (3 mL) subcutaneous pen (Novolog Flexpen U-100 Insulin aspart) metformin 1,000 mg tablet 1,000 mg PO BID 04/22/22 08/21/22 Unknown History rosuvastatin 10 mg tablet 10 mg PO BEDTIME 04/22/22 08/21/22 Unknown History blood sugar diagnostic (FreeStyle #10 ea 06/24/22 08/19/22 Unknown History Lite Strips) blood-glucose meter (FreeStyle 06/24/22 08/19/22 Unknown History Lite Meter kit) lancets 28 gauge (FreeStyle 06/24/22 08/19/22 Unknown History Lancets) multivitamin 1 tab PO DAILY 06/24/22 08/21/22 Unknown History ketoconazole 2 % shampoo 1 appl topical DAILY 08/18/22 08/21/22 Unknown History melatonin 3 mg tablet 1 tab PO BEDTIME PRN insomnia 08/18/22 08/19/22 Unknown History sacubitril 49 mg-valsartan 51 mg 1 tab PO DAILY 08/19/22 08/21/22 Unknown History tablet (Entresto) Exam Airway Mallampati Class: I TM Dist: >3cm Partial: Upper and Lower Heart: rrr Lungs: clear Assessment and Plan Final Anesthetic Review Family History of Problems with Anesthesia: No History of Problems with Anesthesia: No NPO: Yes ASA Class: III Final Preanesthetic Review: No Changes in Pt Med Stat, Meds/Allgs Chart Reviewed, Consent Obtained/Reviewed and Anes Risks/Benef Reviewed Patient Risk: Intermediate Procedure Risk: Low Anesthetic Plan Anesthetic Plan: MAC: Disposition: Standard PACU
[2022-08-27 09:39] VITALS: BP 145/59; PULSE 77; RESP 18; TEMP 36.1; O2SAT 98; BMI 33.3
[2022-08-27 09:52] LABS: Glucose, Whole Blood 177 mg/dL (60-115)
[2022-08-27] MEDS: Lactated Ringers 1,000 ML 100 ML IVCONT (10:00)
--- NOTE | 2022-08-27 10:10 | MHC.SHP ---
Pre-Procedural Eval Section A Date of Service: 08/27/22 Section B Chief Complaint: screening Relevant Family History (Specify if Yes): No Relevant Social History: None Present Medications: see Short Stay Collaborative assessment Medical History: Significant History (CAD (coronary artery disease) Celiac disease Depression High cholesterol HTN (hypertension) Hypothyroid Insulin dependent type 1 diabetes mellitus Palpitations) History of Previous Operations: Relevant previous surgery/procedure and date(s) (H/O abdominoplasty H/O bilateral breast reduction surgery H/O heart artery stent History of arthroplasty of left knee History of carpal tunnel release of both wrists History of section Hx of colonoscopy) Allergies: Allergies Allergy/AdvReac Type Severity Reaction Status Date / Time No Known Allergies Allergy Verified 08/21/22 14:56 Review of Systems Sugical H&P ROS: Negative: Constitution, Cardiovascular, Respiratory, Neurological, Psychiatric, Hem-Onc, Allergic/Immunologic, Gastrointestinal, Genitourinary, Musculoskeletal, Integumentary, Endocrine and Eyes/Ears/Nose/Throat Exam Surgical H&P Exam: Normal: HEENT, Normal: Heart, Normal: Lungs, Normal: Extremities, Normal: Abdomen, Normal: Skin and Normal: Neurological Plan Diagnosis/Plan: Unchanged I have reviewed the history and physical and performed a pertinent physical examination on my patient. No changes have occurred unless specified. Time Spent With Patient Time: Total time managing care of this patient today ____ minutes.
--- NOTE | 2022-08-27 10:12 | P.OP_ITS ---
Operative Note Operative Note Date of Service: 08/27/22 Narrative: Operative Information Procedure Description: Colonoscopy Indication: screening Anesthesia: MAC COLONOSCOPY Instrument: Olympus variable stiffness pediatric scope 190L Colonoscopy Monitoring: Vital signs and clinical assessment, continuous EKG monitoring, Pulse oximetry, Carbon Dioxide monitoring and blood pressure monitoring were done throughout the procedure. Colon withdrawal time was 9 minutes. Procedure: The patient was placed in the left lateral decubitis position and pre-procedure medications were administered. After a digital rectal examination of the ano-rectum, the video colonoscope was inserted into the rectum and advanced through the colon to the cecum/TI. The colonoscope was slowly withdrawn in a retrograde panoramic fashion and the colon mucosa was carefully examined including a retroflexed view of the rectum. Findings and interventions are described below. Procedure Difficulty: moderate Findings: Terminal Ileum-not intubated due to looping Cecum:normal Ascending Colon: normal Transverse Colon -normal Descending Colon:normal Sigmoid Colon: mild diverticulosis Rectum: Retroflexion with small internal hemorrhoids, grade I Anorectum - normal Colon preparation: [place] Bowel Preparation Scale Right colon; 2 Transverse colon: 2 Left colon; 1-2 (0 = Unprepared colon segment with mucosa not seen due to solid stool that cannot be cleared. 1 = Portion of mucosa of the colon segment seen, but other areas of the colon segment not well seen due to staining, residual stool and/or opaque liquid. 2 = Minor amount of residual staining, small fragments of stool and/or opaque liquid, but mucosa of colon segment seen well. 3 = Entire mucosa of colon segment seen well with no residual staining, small fragments of stool or opaque liquid) Impression and Post Procedure Diagnosis: internal hemorrhoids diverticular disease Plan: High fiber diet leaflet Avoid straining at stool, epsom salts and sitz bath, anusol supps or cream Repeat Colonoscopy in 5-6 years deu to fair prep on left side or earlier if clinically indicated Above findings were reviewed with the patient and relevant handouts were provided if indicated.
[2022-08-27 11:03] VITALS: BP 115/47; PULSE 70; RESP 18; TEMP 36.2; O2SAT 99
[2022-08-27 11:15] VITALS: BP 128/64; PULSE 88; RESP 16; TEMP 36.4; O2SAT 96
== END 2022-08-27 12:07 | disposition home or self-care (01) ==
PROVIDERS: PCP Nurse Practitioner Primary Care; Visit Provider Internal Medicine Gastroenterology
PROC: 0DJD8ZZ Inspection of Lower Intestinal Tract, Via Natural or Artificial Opening Endoscopic (ICD-10-PCS; CPT 45378; principal; 2022-08-27 10:20)
DX: Z12.11 Encounter for screening for malignant neoplasm of colon (principal); Z86.010 Personal history of colon polyps; K57.30 Diverticulosis of large intestine without perforation or abscess without bleeding; K64.0 First degree hemorrhoids; K90.0 Celiac disease; I25.10 Atherosclerotic heart disease of native coronary artery without angina pectoris; I10 Essential (primary) hypertension; Z98.61 Coronary angioplasty status; E78.00 Pure hypercholesterolemia, unspecified; R00.2 Palpitations; F32.A Depression, unspecified; E10.9 Type 1 diabetes mellitus without complications; Z79.4 Long term (current) use of insulin; G47.33 Obstructive sleep apnea (adult) (pediatric)
CPT/HCPCS: G0105; 82947

== ENCOUNTER → 2022-09-24 12:42 | Outpatient (BNVA) | payer OTHER, SELFPAY | PROVIDERS: PCP Nurse Practitioner Primary Care; Visit Provider Nurse Practitioner | DX: K59.04 Chronic idiopathic constipation (principal); K21.9 Gastro-esophageal reflux disease without esophagitis | CPT/HCPCS: 99212 ==

== ENCOUNTER → 2022-09-26 12:40 | Outpatient (BNVA) | payer OTHER, SELFPAY | PROVIDERS: PCP Nurse Practitioner Primary Care; Visit Provider Registered Nurse Diabetes Educator | DX: E11.9 Type 2 diabetes mellitus without complications (principal) | CPT/HCPCS: 99211 ==

== ENCOUNTER → 2022-09-30 12:43 | Outpatient (BNVA) | payer OTHER, SELFPAY | PROVIDERS: PCP Nurse Practitioner Primary Care; Visit Provider Physician Assistant Surgical | DX: Z13.89 Encounter for screening for other disorder (principal) ==

== ENCOUNTER → 2022-10-13 09:21 | Outpatient (BNVA) | payer OTHER, SELFPAY | PROVIDERS: PCP Nurse Practitioner Primary Care; Visit Provider Dietitian, Registered | DX: E11.9 Type 2 diabetes mellitus without complications (principal); Z71.3 Dietary counseling and surveillance | CPT/HCPCS: 97802 ==

== ENCOUNTER 2022-10-28 08:52 | Outpatient (REF) | payer OTHER, SELFPAY ==
--- NOTE | ~2022-10-28 | US_ITS ---
EXAMINATION: US ABDOMEN COMPLETE CLINICAL INFORMATION: Chronic idiopathic constipation. COMPARISON: Ultrasound 12/11/2011 TECHNIQUE: Real-time imaging of the abdominal viscera. Technically limited study secondary to body habitus. FINDINGS: Study limited due to body habitus. PANCREAS: Obscured by bowel gas. ABDOMINAL AORTA: Normal caliber proximal aorta. Mid and distal aorta is obscured by bowel gas. INFERIOR VENA CAVA: Visualized portions are normal. LIVER: Mildly echogenic liver parenchyma. The liver contour is normal. No focal hepatic lesion. There is no intrahepatic biliary duct dilatation seen. GALLBLADDER: Normal. The gallbladder is physiologically distended without evidence of stones, sludge, polyps, wall thickening or pericholecystic fluid. COMMON BILE DUCT: Normal in caliber measuring 0.3 cm in diameter. RIGHT KIDNEY: Normal. No hydronephrosis. No renal calculi or focal parenchymal lesions. The kidney measures 11.3 cm in maximum dimension. LEFT KIDNEY: Normal. No hydronephrosis. No renal calculi or focal parenchymal lesions. The kidney measures 11.0 cm in maximum dimension. SPLEEN: Normal. The spleen measures 8.8 cm in maximum dimension. FREE FLUID: None. US/US abdomen complete IMPRESSION: 1. There is generalized increase in hepatic echotexture, consistent with fatty infiltration or hepatocellular disease. Please correlate clinically. No focal hepatic mass or intrahepatic biliary duct dilatation is seen. 2. Pancreas obscured by bowel gas. 3. Partially visualized ., Detailed above.
[2022-10-28 09:57] LABS: MANUAL DIFF FLAG NO
[2022-10-28 09:58] LABS: Basophils Percent Auto 0.2 % (0-2); Eosinophils Absolute Auto 0.2 X10*3/uL (0.0-0.4); Eosinophils Percent Auto 2.7 % (0-4); Hematocrit 37.2 % (37.0-47.0); Hemoglobin 12.3 g/dl (12.0-16.0); Imm Gran Abs Auto 0.02 X10*3/uL (0.00-0.03); Imm Gran Pct Auto 0.2 % (0.0-0.4); Lymphocytes Percent Auto 22.1 % (20-40); Mean Corpuscular HGB Conc 33.1 g/dl (31.0-35.0); Mean Corpuscular Hemoglobin 29.9 pg (27.0-33.0); Mean Corpuscular Volume 90.5 fL (80.0-98.0); Mean Platelet Volume 9.3 fL (9.4-12.3); Monocytes Absolute Auto 0.7 X10*3/uL (0.1-1.2); Monocytes Percent Auto 8.2 % (2-11); Neutrophils Absolute Auto 5.9 x10*3/uL (2.0-8.3); Neutrophils Percent Auto 66.6 % (45-73); Platelet Count 374 X10*3/uL (160-400); Red Blood Count 4.11 X10*6/uL (4.20-5.50); Red Cell Distribution Width 14.2 % (11.0-16.0); White Blood Count 8.9 X10*3/uL (4.8-10.8)
[2022-10-28 10:19] LABS: Alanine Aminotransferase 21 U/L (0-31); Albumin Level 4.1 g/dL (3.5-5.0); Alkaline Phosphatase 50 U/L (39-117); Anion Gap 14 (12-20); Aspartate Amino Transferase 24 U/L (5-31); Bilirubin Total 0.6 mg/dL (0.0-1.0); Blood Urea Nitrogen 19 mg/dL (9-16); Calcium 9.7 mg/dL (8.4-10.2); Carbon Dioxide 24 mmol/L (22-29); Chloride 106 mmol/L (96-108); Cholesterol 138 mg/dL; Estimated Glomerular Filt Rate > 60; Glucose Random 129 mg/dL (60-115); HDL Cholesterol 39 mg/dL; LDL Cholesterol Calculated 76 mg/dl; Potassium 4.8 mmol/L (3.3-5.1); Sodium 139 mmol/L (135-145); Total Protein 7.1 g/dL (6.5-8.0); Triglycerides 117 mg/dL
[2022-10-28 13:34] LABS: Creatinine Urine 229.23 mg/dL
[2022-10-28 13:42] LABS: Microalbum/Creatinine Ratio Ur 369.4 ug/mg cr
== END 2022-10-28 08:53 | disposition home or self-care (01) ==
LOC: HO.US 08:52
PROVIDERS: Internal Medicine Medical Oncology; Absent Provider Internal Medicine Endocrinology, Diabetes & Metabolism; PCP Nurse Practitioner Primary Care; Visit Provider Nurse Practitioner
DX: K59.04 Chronic idiopathic constipation (principal); K21.9 Gastro-esophageal reflux disease without esophagitis; R59.0 Localized enlarged lymph nodes; E11.9 Type 2 diabetes mellitus without complications
CPT/HCPCS: 36415; 76700; 80053; 80061; 82043; 85025

== ENCOUNTER 2022-11-17 13:46 | Emergency (ER) | payer OTHER, SELFPAY ==
--- NOTE | ~2022-11-17 | XR_ITS ---
EXAMINATION: XR CHEST CLINICAL INFORMATION: Chest pain COMPARISON: 2009. TECHNIQUE: Portable frontal view of the chest was obtained. 1502 hours. FINDINGS: No significant abnormality is noted involving the heart, lungs, mediastinum, bony thorax or soft tissues. Thoracic spondylitic changes noted. XR/XR chest 1V IMPRESSION: No evidence for acute process.
--- NOTE | 2022-11-17 13:52 | ECG_ITS ---
Test Reason : CP Blood Pressure : / mmHG Vent. Rate : 079 BPM Atrial Rate : 079 BPM P-R Int : 182 ms QRS Dur : 120 ms QT Int : 384 ms P-R-T Axes : -05 -52 034 degrees QTc Int : 440 ms Normal sinus rhythm Left anterior fascicular block Left ventricular hypertrophy with QRS widening ( R in aVL , [place] product ) Cannot rule out Septal infarct , age undetermined Abnormal ECG No significant changes when compared with the previous EKG of 30 jul 2010 Referred By: Cathie Taylor Electronically Signed By:COLIN RANGEL
[2022-11-17 14:10] VITALS: BP 116/65; PULSE 83; RESP 20; TEMP 36.5; O2SAT 98; BMI 33.6
[2022-11-17 14:10] LABS: MANUAL DIFF FLAG NO
--- NOTE | 2022-11-17 14:12 | ED.CHESTPAIN ---
HPI - Chest Pain General Chief Complaint: General Medical <RAINER Rosen - Last Filed: 11/17/22 14:15> Stated Complaint: Chest pain/L arm pain neck pain <RAINER Rosen - Last Filed: 11/17/22 14:15> Time Seen by Provider: 11/17/22 19:05 <RAINER Rosen - Last Filed: 11/17/22 14:15> History of Present Illness HPI narrative: A 67-year-old female with type 2 diabetes, chronic osteomyelitis, hypertension, reflux, coronary artery disease, hypertension, sleep apnea presents with chest pain. The chest pain started yesterday afternoon. Is located predominantly in the left shoulder region. It radiates left neck and down the left arm. Patient describes the pain as severe and sharp. The pain has alleviated as of today moderately. Pain is worse with movement. Does not associated with shortness of breath. The pain is not associated with exertion the pain has been constant the entire time. She did try Tylenol with minimal improvement in her symptoms. She denies any shortness of breath, numbness, tingling, weakness. She denies any falls or trauma. Patient has never had similar symptoms in the past. <Nilesh Roy MD - Last Filed: 11/17/22 19:34> Related Data Home Medications: Home Medications Medication Instructions Recorded Confirmed aspirin 81 mg tablet,delayed 1 tab PO DAILY 12/07/21 11/17/22 release carvedilol 6.25 mg tablet 1 tab PO DAILY 12/07/21 11/17/22 cyclosporine 0.05 % eye drops in a 1 drp ophthalmic (eye) Q12H 12/07/21 11/17/22 dropperette (Restasis) insulin glargine 100 unit/mL (3 30 unit subcut BEDTIME 12/07/21 11/17/22 mL) subcutaneous pen (Lantus Solostar U-100 Insulin) levothyroxine 137 mcg tablet 1 tab PO DAILY 12/07/21 11/17/22 pregabalin 75 mg capsule 1 cap PO DAILY 12/07/21 11/17/22 dulaglutide 3 mg/0.5 mL 4.5 mg subcut QWEEK 04/22/22 11/17/22 subcutaneous pen injector (Trulicity) insulin aspart U-100 100 unit/mL 30 unit subcut DAILY 04/22/22 11/17/22 (3 mL) subcutaneous pen (Novolog FlexPen U-100 Insulin aspart) metformin 1,000 mg tablet 1,000 mg PO BID 04/22/22 11/17/22 rosuvastatin 10 mg tablet 10 mg PO BEDTIME 04/22/22 11/17/22 blood sugar diagnostic (FreeStyle #10 ea 06/24/22 08/19/22 Lite Strips) blood-glucose meter (FreeStyle 06/24/22 08/19/22 Lite Meter kit) lancets 28 gauge (FreeStyle 06/24/22 08/19/22 Lancets) multivitamin 1 tab PO DAILY 06/24/22 11/17/22 ketoconazole 2 % shampoo 1 appl topical DAILY 08/18/22 11/17/22 melatonin 3 mg tablet 1 tab PO BEDTIME PRN insomnia 08/18/22 11/17/22 sacubitril 49 mg-valsartan 51 mg 1 tab PO DAILY 08/19/22 11/17/22 tablet (Entresto) Previous Rx's Medication Instructions Recorded hydroxyzine HCl 25 mg tablet 25 mg PO TID PRN anxiety #30 tabs 12/09/21 peg 3350-electrolytes 236 240 ml PO Q10M 1 day #4,000 mL 04/22/22 gram-22.74 gram-6.74 gram-5.86 gram solution (Golytely) omeprazole 40 mg capsule,delayed 40 mg PO DAILY 30 days #30 caps 09/24/22 release plecanatide 3 mg tablet (Trulance) 3 mg PO DAILY #30 tabs 09/24/22 capsaicin 0.1 % topical cream 1 appl topical BID PRN pain (scale 11/17/22 score 4-6) #42.5 grams cyclobenzaprine 5 mg tablet 10 mg PO BEDTIME PRN muscle spasm 11/17/22 #10 tabs meloxicam 15 mg tablet 15 mg PO DAILY #10 tabs 11/17/22 <RAINER Rosen - Last Filed: 11/17/22 14:15> Allergies/Adverse Reactions: Allergies Allergy/AdvReac Type Severity Reaction Status Date / Time No Known Allergies Allergy Verified 09/24/22 14:30 <RAINER Rosen - Last Filed: 11/17/22 14:15> Review of Systems Review of Systems: CONSTITUTIONAL: Denies weight loss, fever and chills. HEENT: Denies changes in vision and hearing. RESPIRATORY: Denies SOB and cough. CV: Denies palpitations positive CP. GI: Denies abdominal pain, nausea, vomiting and diarrhea. : Denies dysuria and urinary frequency. MSK: Positive myalgia and joint pain. SKIN: Denies rash and pruritus. NEUROLOGICAL: Denies headache and syncope. PSYCHIATRIC: Denies recent changes in mood. Denies anxiety and depression. All other ROS are negative unless in HPI <Nilesh Roy MD - Last Filed: 11/17/22 19:34> [facility] Past Medical History Medical History: Medical History CAD (coronary artery disease) Celiac disease Depression High cholesterol HTN (hypertension) Hypothyroid Insulin dependent type 1 diabetes mellitus Palpitations <RAINER Rosen - Last Filed: 11/17/22 14:15> Surgical History: Surgical History H/O abdominoplasty H/O bilateral breast reduction surgery H/O heart artery stent History of arthroplasty of left knee History of carpal tunnel release of both wrists History of section Hx of colonoscopy <RAINER Rosen - Last Filed: 11/17/22 14:15> Family History Family History: Family History Mother Diabetes High blood pressure Father Diabetes High blood pressure Paternal Aunt Bone cancer Sister Breast cancer Sister Lymph node cancer <RAINER Rosen - Last Filed: 11/17/22 14:15> Social History Social History: Social History Household Members: None Housing: Apartment Are you a primary child care supervisor to a significant other at home: No Do you presently have visiting nurse or other home services: No Alcohol intake: never Patient Tobacco Use Status: Never used Tobacco Advance Directives: No Advance Directives Information Provided: No service: No Current occupational status: disabled <RAINER Rosen - Last Filed: 11/17/22 14:15> Physical Exam Vital Signs: Vital Signs: Last Vital Signs Temp 97.0 F 11/17/22 17:26 Pulse 72 11/17/22 17:26 Resp 15 11/17/22 17:26 BP 116/70 11/17/22 17:26 Pulse Ox 98 11/17/22 17:26 O2 Del Method 11/17/22 17:26 BMI result Body Mass Index 33.6 <RAINER Rosen - Last Filed: 11/17/22 14:15> Vital Signs: Last Vital Signs Temp 97.0 F 11/17/22 17:26 Pulse 72 11/17/22 17:26 Resp 15 11/17/22 17:26 BP 116/70 11/17/22 17:26 Pulse Ox 98 11/17/22 17:26 O2 Del Method 11/17/22 17:26 BMI result Body Mass Index 33.6 <Nilesh Roy MD - Last Filed: 11/17/22 19:34> GEN: Well developed, no acute distress, alert, oriented HEENT: Normocephalic, atraumatic, normal external ears, nose appears normal, no oropharyngeal edema or exudates Eyes: Normal to appearance Neck: Supple, no lymphadenopathy Respiratory: Talks in complete sentences, no respiratory distress, clear to auscultation bilaterally Cardiovascular: Regular rate and rhythm, no murmurs rubs or gallops Abdomen: Soft, nontender, nondistended, no guarding, no rebound Back: No CVA tenderness Extremities: No clubbing cyanosis or edema, tenderness to palpation of the left bicipital groove, left trapezius, sternocleidomastoid, paraspinous muscles Neurologic: No focal neurologic deficits, cranial nerves 2-12 intact, strength is 5/5 bilaterally, gait normal Skin: No rash <Nilesh Roy MD - Last Filed: 11/17/22 19:34> Course Course Course Narrative: RME - 67 yo Frisian speaking with history of DM2, JEVON, HTN, CAD who presents to the ER for evaluation of chest pain. She states yesterday she had sharp pain in her head and migrated to her left shoulder, left neck and left chest. She was shivering. Glucose was 48 at the time of the strongest pain. Left sided chest pains and discomfort persists today. When she called PCP today they told her to come to the ER. Plan: POC now, EKG, troponin, lab workup and CXR <RAINER Rosen - Last Filed: 11/17/22 14:15> Reevaluation(s) Reevaluation #1: Patient has been experiencing musculoskeletal pain based on my evaluation. Her cardiac enzymes are negative. After constant pain for over a day, the likelihood of this being cardiac in nature is highly unlikely. She has a nonischemic EKG although it is an abnormal EKG. Her examination was most consistent with reproducible tenderness to the bicipital groove and surrounding muscles. She likely has some sort of inflammatory process/muscle spasm. Will prescribe meloxicam. Patient can take Tylenol. Additionally will prescribe a mild muscle relaxer which patient is aware may cause drowsiness. Patient should follow-up with her primary care provider within the next week. For change in her symptoms, chest pain with exertion, patient was instructed to return to the emergency department for re-evaluation. <Nilesh Roy MD - Last Filed: 11/17/22 19:34> Medical Decision Making Medical Decision Making [facility] Narrative: A 67-year-old female with type 2 diabetes, chronic osteomyelitis, hypertension, reflux, coronary artery disease, hypertension, sleep apnea presents with chest pain. Chest pain is more shoulder pain in nature. It is worse with palpation and movement. It is not associated with exertion, shortness of breath. Patient has no other risk factors for PE or DVT. Her examination is most consistent with musculoskeletal pain. A full workup will be undertaken assure ourselves that this is not cardiac in nature. <Nilesh Roy MD - Last Filed: 11/17/22 19:34> Differential Diagnosis Differential Diagnoses: The differential diagnosis associated with the presentation includes (Musculoskeletal pain, bicipital tendinitis, muscle spasm, tendinitis, bursitis, contusion, strain, sprain, contusion) <Nilesh Roy MD - Last Filed: 11/17/22 19:34> Admission/Observation Consideration of admission/observation: Escalation of care including admission/observation considered <Nilesh Roy MD - Last Filed: 11/17/22 19:34> Lab Data [facility] Lab Attestation statement: I reviewed the patient's lab results. <Nilesh Roy MD - Last Filed: 11/17/22 19:34> Result Diagrams: 11/17/22 14:05 11/17/22 14:05 <RAINER Rosen - Last Filed: 11/17/22 14:15> Labs: Lab Results 11/17/22 11/17/22 11/17/22 Range/Units 14:05 14:05 14:05 WBC 10.3 (4.8-10.8) X10*3/uL RBC 3.89 L (4.20-5.50) X10*6/uL Hgb 11.7 L (12.0-16.0) g/dl Hct 35.6 L (37.0-47.0) % MCV 91.5 (80.0-98.0) fL MCH 30.1 (27.0-33.0) pg MCHC 32.9 (31.0-35.0) g/dl RDW 14.3 (11.0-16.0) % Plt Count 388 (160-400) X10*3/uL MPV 9.5 (9.4-12.3) fL Immature Gran % (Auto) 0.3 (0.0-0.4) % Neut % (Auto) 68.2 (45-73) % Lymph % (Auto) 19.6 L (20-40) % Mitchell % (Auto) 8.9 (2-11) % Eos % (Auto) 2.8 (0-4) % Baso % (Auto) 0.2 (0-2) % Lymph # (Auto) 2.0 (1.2-4.9) X10*3/uL Mitchell # (Auto) 0.9 (0.1-1.2) X10*3/uL Eos # (Auto) 0.3 (0.0-0.4) X10*3/uL Baso # (Auto) 0.0 (0.0-0.2) X10*3/uL Abs Immat Gran (auto) 0.03 (0.00-0.03) X10*3/uL Absolute Neuts (auto) 7.0 (2.0-8.3) x10*3/uL Absolute Nucleated RBC 0.000 (0.0-0.012) X10*3/uL Nucleated RBC % (auto) 0.0 (0.0-0.2) /100WBC PT 11.5 (10.0-13.1) SEC INR 1.0 (0.9-1.1) APTT 33.0 (26.0-36.4) SEC Sodium 140 (135-145) mmol/L Potassium 4.9 (3.3-5.1) mmol/L Chloride 104 (96-108) mmol/L Carbon Dioxide 29 (22-29) mmol/L Anion Gap 12 (12-20) BUN 24 H (9-16) mg/dL Creatinine 0.81 (0.5-1.4) mg/dL Estim Creat Clear Calc 80.8 Estimated GFR > 60 POC Glucose (60-115) mg/dL Random Glucose 82 (60-115) mg/dL Calcium 9.7 (8.4-10.2) mg/dL Magnesium 1.7 (1.6-2.6) mg/dL Total Bilirubin 0.4 (0.0-1.0) mg/dL Direct Bilirubin 0.2 (0.0-0.5) mg/dL AST 23 (5-31) U/L ALT 24 (0-31) U/L Alkaline Phosphatase 50 (39-117) U/L Troponin I High Sens (<3.5-17.0) ng/L Total Protein 6.9 (6.5-8.0) g/dL Albumin 4.0 (3.5-5.0) g/dL COVID-19 (KARIN) (Negative) COVID-19 Clin Com 11/17/22 11/17/22 11/17/22 Range/Units 14:05 14:05 14:17 WBC (4.8-10.8) X10*3/uL RBC (4.20-5.50) X10*6/uL Hgb (12.0-16.0) g/dl Hct (37.0-47.0) % MCV (80.0-98.0) fL MCH (27.0-33.0) pg MCHC (31.0-35.0) g/dl RDW (11.0-16.0) % Plt Count (160-400) X10*3/uL MPV (9.4-12.3) fL Immature Gran % (Auto) (0.0-0.4) % Neut % (Auto) (45-73) % Lymph % (Auto) (20-40) % Mitchell % (Auto) (2-11) % Eos % (Auto) (0-4) % Baso % (Auto) (0-2) % Lymph # (Auto) (1.2-4.9) X10*3/uL Mitchell # (Auto) (0.1-1.2) X10*3/uL Eos # (Auto) (0.0-0.4) X10*3/uL Baso # (Auto) (0.0-0.2) X10*3/uL Abs Immat Gran (auto) (0.00-0.03) X10*3/uL Absolute Neuts (auto) (2.0-8.3) x10*3/uL Absolute Nucleated RBC (0.0-0.012) X10*3/uL Nucleated RBC % (auto) (0.0-0.2) /100WBC PT (10.0-13.1) SEC INR (0.9-1.1) APTT (26.0-36.4) SEC Sodium (135-145) mmol/L Potassium (3.3-5.1) mmol/L Chloride (96-108) mmol/L Carbon Dioxide (22-29) mmol/L Anion Gap (12-20) BUN (9-16) mg/dL Creatinine (0.5-1.4) mg/dL Estim Creat Clear Calc Estimated GFR POC Glucose 112 (60-115) mg/dL Random Glucose (60-115) mg/dL Calcium (8.4-10.2) mg/dL Magnesium (1.6-2.6) mg/dL Total Bilirubin (0.0-1.0) mg/dL Direct Bilirubin (0.0-0.5) mg/dL AST (5-31) U/L ALT (0-31) U/L Alkaline Phosphatase (39-117) U/L Troponin I High Sens 3.5 (<3.5-17.0) ng/L Total Protein (6.5-8.0) g/dL Albumin (3.5-5.0) g/dL COVID-19 (KARIN) Negative (Negative) COVID-19 Clin Com See Note 11/17/22 Range/Units 17:25 WBC (4.8-10.8) X10*3/uL RBC (4.20-5.50) X10*6/uL Hgb (12.0-16.0) g/dl Hct (37.0-47.0) % MCV (80.0-98.0) fL MCH (27.0-33.0) pg MCHC (31.0-35.0) g/dl RDW (11.0-16.0) % Plt Count (160-400) X10*3/uL MPV (9.4-12.3) fL Immature Gran % (Auto) (0.0-0.4) % Neut % (Auto) (45-73) % Lymph % (Auto) (20-40) % Mitchell % (Auto) (2-11) % Eos % (Auto) (0-4) % Baso % (Auto) (0-2) % Lymph # (Auto) (1.2-4.9) X10*3/uL Mitchell # (Auto) (0.1-1.2) X10*3/uL Eos # (Auto) (0.0-0.4) X10*3/uL Baso # (Auto) (0.0-0.2) X10*3/uL Abs Immat Gran (auto) (0.00-0.03) X10*3/uL Absolute Neuts (auto) (2.0-8.3) x10*3/uL Absolute Nucleated RBC (0.0-0.012) X10*3/uL Nucleated RBC % (auto) (0.0-0.2) /100WBC PT (10.0-13.1) SEC INR (0.9-1.1) APTT (26.0-36.4) SEC Sodium (135-145) mmol/L Potassium (3.3-5.1) mmol/L Chloride (96-108) mmol/L Carbon Dioxide (22-29) mmol/L Anion Gap (12-20) BUN (9-16) mg/dL Creatinine (0.5-1.4) mg/dL Estim Creat Clear Calc Estimated GFR POC Glucose 160 H (60-115) mg/dL Random Glucose (60-115) mg/dL Calcium (8.4-10.2) mg/dL Magnesium (1.6-2.6) mg/dL Total Bilirubin (0.0-1.0) mg/dL Direct Bilirubin (0.0-0.5) mg/dL AST (5-31) U/L ALT (0-31) U/L Alkaline Phosphatase (39-117) U/L Troponin I High Sens (<3.5-17.0) ng/L Total Protein (6.5-8.0) g/dL Albumin (3.5-5.0) g/dL COVID-19 (KARIN) (Negative) COVID-19 Clin Com <RAINER Rosen - Last Filed: 11/17/22 14:15> Lab Results 11/17/22 11/17/22 11/17/22 Range/Units 14:05 14:05 14:05 WBC 10.3 (4.8-10.8) X10*3/uL RBC 3.89 L (4.20-5.50) X10*6/uL Hgb 11.7 L (12.0-16.0) g/dl Hct 35.6 L (37.0-47.0) % MCV 91.5 (80.0-98.0) fL MCH 30.1 (27.0-33.0) pg MCHC 32.9 (31.0-35.0) g/dl RDW 14.3 (11.0-16.0) % Plt Count 388 (160-400) X10*3/uL MPV 9.5 (9.4-12.3) fL Immature Gran % (Auto) 0.3 (0.0-0.4) % Neut % (Auto) 68.2 (45-73) % Lymph % (Auto) 19.6 L (20-40) % Mitchell % (Auto) 8.9 (2-11) % Eos % (Auto) 2.8 (0-4) % Baso % (Auto) 0.2 (0-2) % Lymph # (Auto) 2.0 (1.2-4.9) X10*3/uL Mitchell # (Auto) 0.9 (0.1-1.2) X10*3/uL Eos # (Auto) 0.3 (0.0-0.4) X10*3/uL Baso # (Auto) 0.0 (0.0-0.2) X10*3/uL Abs Immat Gran (auto) 0.03 (0.00-0.03) X10*3/uL Absolute Neuts (auto) 7.0 (2.0-8.3) x10*3/uL Absolute Nucleated RBC 0.000 (0.0-0.012) X10*3/uL Nucleated RBC % (auto) 0.0 (0.0-0.2) /100WBC PT 11.5 (10.0-13.1) SEC INR 1.0 (0.9-1.1) APTT 33.0 (26.0-36.4) SEC Sodium 140 (135-145) mmol/L Potassium 4.9 (3.3-5.1) mmol/L Chloride 104 (96-108) mmol/L Carbon Dioxide 29 (22-29) mmol/L Anion Gap 12 (12-20) BUN 24 H (9-16) mg/dL Creatinine 0.81 (0.5-1.4) mg/dL Estim Creat Clear Calc 80.8 Estimated GFR > 60 POC Glucose (60-115) mg/dL Random Glucose 82 (60-115) mg/dL Calcium 9.7 (8.4-10.2) mg/dL Magnesium 1.7 (1.6-2.6) mg/dL Total Bilirubin 0.4 (0.0-1.0) mg/dL Direct Bilirubin 0.2 (0.0-0.5) mg/dL AST 23 (5-31) U/L ALT 24 (0-31) U/L Alkaline Phosphatase 50 (39-117) U/L Troponin I High Sens (<3.5-17.0) ng/L Total Protein 6.9 (6.5-8.0) g/dL Albumin 4.0 (3.5-5.0) g/dL COVID-19 (KARIN) (Negative) COVID-19 Clin Com 11/17/22 11/17/22 11/17/22 Range/Units 14:05 14:05 14:17 WBC (4.8-10.8) X10*3/uL RBC (4.20-5.50) X10*6/uL Hgb (12.0-16.0) g/dl Hct (37.0-47.0) % MCV (80.0-98.0) fL MCH (27.0-33.0) pg MCHC (31.0-35.0) g/dl RDW (11.0-16.0) % Plt Count (160-400) X10*3/uL MPV (9.4-12.3) fL Immature Gran % (Auto) (0.0-0.4) % Neut % (Auto) (45-73) % Lymph % (Auto) (20-40) % Mitchell % (Auto) (2-11) % Eos % (Auto) (0-4) % Baso % (Auto) (0-2) % Lymph # (Auto) (1.2-4.9) X10*3/uL Mitchell # (Auto) (0.1-1.2) X10*3/uL Eos # (Auto) (0.0-0.4) X10*3/uL Baso # (Auto) (0.0-0.2) X10*3/uL Abs Immat Gran (auto) (0.00-0.03) X10*3/uL Absolute Neuts (auto) (2.0-8.3) x10*3/uL Absolute Nucleated RBC (0.0-0.012) X10*3/uL Nucleated RBC % (auto) (0.0-0.2) /100WBC PT (10.0-13.1) SEC INR (0.9-1.1) APTT (26.0-36.4) SEC Sodium (135-145) mmol/L Potassium (3.3-5.1) mmol/L Chloride (96-108) mmol/L Carbon Dioxide (22-29) mmol/L Anion Gap (12-20) BUN (9-16) mg/dL Creatinine (0.5-1.4) mg/dL Estim Creat Clear Calc Estimated GFR POC Glucose 112 (60-115) mg/dL Random Glucose (60-115) mg/dL Calcium (8.4-10.2) mg/dL Magnesium (1.6-2.6) mg/dL Total Bilirubin (0.0-1.0) mg/dL Direct Bilirubin (0.0-0.5) mg/dL AST (5-31) U/L ALT (0-31) U/L Alkaline Phosphatase (39-117) U/L Troponin I High Sens 3.5 (<3.5-17.0) ng/L Total Protein (6.5-8.0) g/dL Albumin (3.5-5.0) g/dL COVID-19 (KARIN) Negative (Negative) COVID-19 Clin Com See Note 11/17/22 Range/Units 17:25 WBC (4.8-10.8) X10*3/uL RBC (4.20-5.50) X10*6/uL Hgb (12.0-16.0) g/dl Hct (37.0-47.0) % MCV (80.0-98.0) fL MCH (27.0-33.0) pg MCHC (31.0-35.0) g/dl RDW (11.0-16.0) % Plt Count (160-400) X10*3/uL MPV (9.4-12.3) fL Immature Gran % (Auto) (0.0-0.4) % Neut % (Auto) (45-73) % Lymph % (Auto) (20-40) % Mitchell % (Auto) (2-11) % Eos % (Auto) (0-4) % Baso % (Auto) (0-2) % Lymph # (Auto) (1.2-4.9) X10*3/uL Mitchell # (Auto) (0.1-1.2) X10*3/uL Eos # (Auto) (0.0-0.4) X10*3/uL Baso # (Auto) (0.0-0.2) X10*3/uL Abs Immat Gran (auto) (0.00-0.03) X10*3/uL Absolute Neuts (auto) (2.0-8.3) x10*3/uL Absolute Nucleated RBC (0.0-0.012) X10*3/uL Nucleated RBC % (auto) (0.0-0.2) /100WBC PT (10.0-13.1) SEC INR (0.9-1.1) APTT (26.0-36.4) SEC Sodium (135-145) mmol/L Potassium (3.3-5.1) mmol/L Chloride (96-108) mmol/L Carbon Dioxide (22-29) mmol/L Anion Gap (12-20) BUN (9-16) mg/dL Creatinine (0.5-1.4) mg/dL Estim Creat Clear Calc Estimated GFR POC Glucose 160 H (60-115) mg/dL Random Glucose (60-115) mg/dL Calcium (8.4-10.2) mg/dL Magnesium (1.6-2.6) mg/dL Total Bilirubin (0.0-1.0) mg/dL Direct Bilirubin (0.0-0.5) mg/dL AST (5-31) U/L ALT (0-31) U/L Alkaline Phosphatase (39-117) U/L Troponin I High Sens (<3.5-17.0) ng/L Total Protein (6.5-8.0) g/dL Albumin (3.5-5.0) g/dL COVID-19 (KARIN) (Negative) COVID-19 Clin Com <Nilesh Roy MD - Last Filed: 11/17/22 19:34> Independent Interpretation I performed an independent interpretation of an: EKG (Normal sinus rhythm heart rate 79, evidence of an intraventricular conduction delay, none diffuse nonspecific T-wave changes, no acute ST elevations or depressions, likely LVH no comparison available) and Plain X-Ray (Chest: No acute cardiopulmonary disease) <Nilesh Roy MD - Last Filed: 11/17/22 19:34> Radiology Impression Discussion of test interpretation with radiology: I have reviewed the radiologist's reading. (IMPRESSION: No evidence for acute process. Dictated By:John ContehSigned By:<Electronically signed by John Conteh in OV>11/17/22 1531) <Nilesh Roy MD - Last Filed: 11/17/22 19:34> External Record Review External record reviewed: Inpatient record (Discharge summary from December 09, 2021) <Nilesh Roy MD - Last Filed: 11/17/22 19:34> Prescription Management I considered prescription management with: Pain Medication <Nilesh Roy MD - Last Filed: 11/17/22 19:34> Discharge Plan Discharge Clinical Impression: Acute pain of left shoulder <RAINER Rosen - Last Filed: 11/17/22 14:15> Patient Disposition: Home, Self-Care <RAINER Rosen - Last Filed: 11/17/22 14:15> Instructions: Shoulder Pain (ED), Arm Pain (ED) <RAINER Rosen - Last Filed: 11/17/22 14:15> Additional Instructions: You were seen today for chest pain/left shoulder pain. This appears to be musculoskeletal in nature. I am recommending meloxicam 15 mg daily. He may take Tylenol 1000 mg every 6 hours as needed for additional pain relief. May also apply topical capsaicin 2-3 times daily as needed. If capsaicin this too expensive for you by prescription, you may purchase this [id number]. If the pain in this area changes in any way, becomes more severe, associated with shortness of breath, associated with exertion or other concerning symptoms, please seek care in the emergency department right away. <RAINER Rosen - Last Filed: 11/17/22 14:15> Prescriptions: New meloxicam 15 mg tablet 15 mg PO DAILY Qty: 10 0RF cyclobenzaprine 5 mg tablet 10 mg PO BEDTIME PRN (Reason: muscle spasm) Qty: 10 0RF Rx Instructions: May cause drowsiness capsaicin 0.1 % cream 1 appl topical BID PRN (Reason: pain (scale score 4-6)) Qty: 42.5 0RF Rx Instructions: do not wash area for at least 30 min after application No Action levothyroxine 137 mcg tablet 1 tab PO DAILY carvedilol 6.25 mg tablet 1 tab PO DAILY aspirin 81 mg tablet,delayed release (DR/EC) 1 tab PO DAILY pregabalin 75 mg capsule 1 cap PO DAILY insulin glargine [Lantus Solostar U-100 Insulin] 100 unit/mL (3 mL) insulin pen 30 unit subcut BEDTIME cyclosporine [Restasis] 0.05 % Dropperette 1 drp OPHTHALMIC (EYE) Q12H hydroxyzine HCl 25 mg tablet 25 mg PO TID PRN (Reason: anxiety) Qty: 30 0RF metformin 1,000 mg tablet 1,000 mg PO BID ketoconazole 2 % shampoo 1 appl topical DAILY melatonin 3 mg tablet 1 tab PO BEDTIME PRN (Reason: insomnia) Entresto 49-51 mg tablet 1 tab PO DAILY multivitamin Tablet 1 tab PO DAILY (DME) FreeStyle Lite Strips Strip See Rx Instructions .ROUTE TID Qty: 10 Rx Instructions: As directed (DME) blood-glucose meter [FreeStyle Lite Meter] Kit See Rx Instructions .Route Rx Instructions: As directed (DME) lancets [FreeStyle Lancets] 28 gauge misc See Rx Instructions .Route Rx Instructions: As directed Trulicity 3 mg/0.5 mL pen injector 4.5 mg subcut QWEEK rosuvastatin 10 mg tablet 10 mg PO BEDTIME insulin aspart U-100 [Novolog FlexPen U-100 Insulin] 100 unit/mL (3 mL) insulin pen 30 unit subcut DAILY peg 3350-electrolytes [Golytely] 236-22.74-6.74 -5.86 gram recon soln 240 ml PO Q10M 1 Days Qty: 4000 0RF Rx Instructions: until fecal effluent is clear; do not exceed a total volume of 2,000 mL Trulance 3 mg tablet 3 mg PO DAILY Qty: 30 3RF omeprazole 40 mg capsule,delayed release(DR/EC) 40 mg PO DAILY 30 Days Qty: 30 3RF <RAINER Rosen - Last Filed: 11/17/22 14:15> Referrals: Carin Bolden, MANUFACTURING SALES REPRESENTATIVE [Primary Care Provider] - 3 days <RAINER Rosen - Last Filed: 11/17/22 14:15> Print Language: Frisian <RAINER Rosen - Last Filed: 11/17/22 14:15>
[2022-11-17 14:14] LABS: Basophils Percent Auto 0.2 % (0-2); Eosinophils Absolute Auto 0.3 X10*3/uL (0.0-0.4); Eosinophils Percent Auto 2.8 % (0-4); Hematocrit 35.6 % (37.0-47.0); Hemoglobin 11.7 g/dl (12.0-16.0); Imm Gran Abs Auto 0.03 X10*3/uL (0.00-0.03); Imm Gran Pct Auto 0.3 % (0.0-0.4); Lymphocytes Percent Auto 19.6 % (20-40); Mean Corpuscular HGB Conc 32.9 g/dl (31.0-35.0); Mean Corpuscular Hemoglobin 30.1 pg (27.0-33.0); Mean Corpuscular Volume 91.5 fL (80.0-98.0); Mean Platelet Volume 9.5 fL (9.4-12.3); Monocytes Absolute Auto 0.9 X10*3/uL (0.1-1.2); Monocytes Percent Auto 8.9 % (2-11); Neutrophils Percent Auto 68.2 % (45-73); Platelet Count 388 X10*3/uL (160-400); Red Blood Count 3.89 X10*6/uL (4.20-5.50); Red Cell Distribution Width 14.3 % (11.0-16.0); White Blood Count 10.3 X10*3/uL (4.8-10.8)
[2022-11-17 14:18] LABS: Prothrombin Time 11.5 SEC (10.0-13.1)
[2022-11-17 14:21] LABS: Glucose, Whole Blood 112 mg/dL (60-115)
[2022-11-17 14:31] LABS: Alanine Aminotransferase 24 U/L (0-31); Alkaline Phosphatase 50 U/L (39-117); Anion Gap 12 (12-20); Aspartate Amino Transferase 23 U/L (5-31); Bilirubin Direct 0.2 mg/dL (0.0-0.5); Bilirubin Total 0.4 mg/dL (0.0-1.0); Blood Urea Nitrogen 24 mg/dL (9-16); Calcium 9.7 mg/dL (8.4-10.2); Carbon Dioxide 29 mmol/L (22-29); Chloride 104 mmol/L (96-108); Creatinine Clr Calc Pharmacy 80.8; Estimated Glomerular Filt Rate > 60; Glucose Random 82 mg/dL (60-115); Magnesium 1.7 mg/dL (1.6-2.6); Potassium 4.9 mmol/L (3.3-5.1); Sodium 140 mmol/L (135-145); Total Protein 6.9 g/dL (6.5-8.0)
[2022-11-17 14:33] LABS: COVID-19 Test Negative (Negative); IDNOW Serial# 16C4AD1C
[2022-11-17 14:38] LABS: Troponin-I High Sensitivity 3.5 ng/L (<3.5-17.0)
[2022-11-17 17:26] VITALS: BP 116/70; PULSE 72; RESP 15; TEMP 36.1; O2SAT 98
--- NOTE | 2022-11-17 17:26 | MHC.EDTECH ---
pt was called back to triage to check blood sugar and re vital
[2022-11-17 18:39] LABS: Glucose, Whole Blood 160 mg/dL (60-115)
--- NOTE | 2022-11-17 19:12 | PC.NURSE ---
assumed care of pt at 1900, pt a&ox3, vss, POC WNL, pt resting quietly, pending ED provider. no new orders at this time.
[2022-11-17] MEDS: Acetaminophen 325 MG TABLET 975 MG PO (19:36)
[2022-11-17] MEDS: Ibuprofen 600 MG TABLET PO (19:36)
--- NOTE | 2022-11-17 19:44 | PC.NURSE ---
pt medicated per provider order.
== END 2022-11-17 19:45 | disposition home or self-care (01) ==
PROVIDERS: Physician Assistant; Emergency Provider Emergency Medicine; PCP Nurse Practitioner Primary Care
DX: M25.512 Pain in left shoulder (principal); Z20.822 Contact with and (suspected) exposure to COVID-19; E10.9 Type 1 diabetes mellitus without complications; I10 Essential (primary) hypertension; Z79.4 Long term (current) use of insulin; Z79.82 Long term (current) use of aspirin; Z79.899 Other long term (current) drug therapy; Z79.02 Long term (current) use of antithrombotics/antiplatelets
CPT/HCPCS: 36415; 71045; 80048; 80076; 82947; 83735; 84484; 85025; 85610; 85730; 87635; 93005; 99283; 99284

== ENCOUNTER → 2022-11-19 13:49 | Outpatient (BNVA) | payer OTHER, SELFPAY | PROVIDERS: PCP Nurse Practitioner Primary Care; Visit Provider Internal Medicine Endocrinology, Diabetes & Metabolism | DX: E11.9 Type 2 diabetes mellitus without complications (principal); Z79.4 Long term (current) use of insulin | CPT/HCPCS: 82947; 83036; 99212 ==

== ENCOUNTER 2022-12-08 08:51 | Outpatient (REF) | payer OTHER, SELFPAY ==
[2022-12-08 09:59] LABS: Anion Gap 13 (12-20); Blood Urea Nitrogen 27 mg/dL (9-16); Calcium 9.4 mg/dL (8.4-10.2); Carbon Dioxide 25 mmol/L (22-29); Chloride 104 mmol/L (96-108); Estimated Glomerular Filt Rate > 60; Glucose Random 205 mg/dL (60-115); Sodium 137 mmol/L (135-145)
== END 2022-12-08 08:52 | disposition home or self-care (01) ==
LOC: HO.LAB 08:51
PROVIDERS: PCP Nurse Practitioner Primary Care; Visit Provider Internal Medicine Endocrinology, Diabetes & Metabolism
DX: E11.9 Type 2 diabetes mellitus without complications (principal)
CPT/HCPCS: 36415; 80048

== ENCOUNTER → 2022-12-19 13:21 | Outpatient (BNVA) | payer OTHER, SELFPAY | PROVIDERS: PCP Nurse Practitioner Primary Care; Visit Provider Nurse Practitioner | DX: K59.04 Chronic idiopathic constipation (principal); K21.9 Gastro-esophageal reflux disease without esophagitis | CPT/HCPCS: 99212 ==

== ENCOUNTER 2022-12-23 09:04 | Outpatient (REF) | payer OTHER, SELFPAY ==
[2022-12-23 11:23] LABS: Alanine Aminotransferase 25 U/L (0-31); Albumin Level 4.2 g/dL (3.5-5.0); Alkaline Phosphatase 45 U/L (39-117); Anion Gap 14 (12-20); Aspartate Amino Transferase 23 U/L (5-31); Bilirubin Total 0.5 mg/dL (0.0-1.0); Blood Urea Nitrogen 29 mg/dL (9-16); Calcium 9.5 mg/dL (8.4-10.2); Carbon Dioxide 24 mmol/L (22-29); Chloride 106 mmol/L (96-108); Cholesterol 145 mg/dL; Estimated Glomerular Filt Rate > 60; Glucose Random 174 mg/dL (60-115); HDL Cholesterol 40 mg/dL; LDL Cholesterol Calculated 81 mg/dl; Potassium 4.8 mmol/L (3.3-5.1); Sodium 139 mmol/L (135-145); Total Protein 7.2 g/dL (6.5-8.0); Triglycerides 123 mg/dL
== END 2022-12-23 09:05 | disposition home or self-care (01) ==
LOC: HO.LAB 09:04
PROVIDERS: PCP Nurse Practitioner Primary Care; Visit Provider Internal Medicine
DX: E78.2 Mixed hyperlipidemia (principal); I50.20 Unspecified systolic (congestive) heart failure
CPT/HCPCS: 36415; 80053; 80061

== ENCOUNTER → 2022-12-24 13:16 | Outpatient (BNVA) | payer OTHER, SELFPAY | PROVIDERS: PCP Nurse Practitioner Primary Care; Visit Provider Dietitian, Registered | DX: E11.9 Type 2 diabetes mellitus without complications (principal) | CPT/HCPCS: 97803 ==

== ENCOUNTER → 2022-12-25 10:40 | Outpatient (BNVA) | payer OTHER, SELFPAY | PROVIDERS: PCP Nurse Practitioner Primary Care; Visit Provider Psychiatry & Neurology Neurology | DX: E10.40 Type 1 diabetes mellitus with diabetic neuropathy, unspecified (principal); G25.81 Restless legs syndrome; Z79.4 Long term (current) use of insulin | CPT/HCPCS: 99202 ==

== ENCOUNTER → 2023-02-03 12:42 | Outpatient (BNVA) | payer OTHER, SELFPAY | PROVIDERS: PCP Nurse Practitioner Primary Care; Visit Provider Nurse Practitioner | DX: K59.04 Chronic idiopathic constipation (principal); K21.9 Gastro-esophageal reflux disease without esophagitis | CPT/HCPCS: 99212 ==

== ENCOUNTER 2023-02-16 13:00 | Outpatient (RCR) | payer OTHER, SELFPAY | END 2023-04-16 13:14 | disposition home or self-care (01) | LOC: HO.PTCHIC 13:00 | PROVIDERS: PCP Nurse Practitioner Primary Care; Visit Provider Nurse Practitioner Primary Care | DX: M25.512 Pain in left shoulder (principal) | CPT/HCPCS: 97110; 97140; 97161 ==

== ENCOUNTER → 2023-03-19 13:02 | Outpatient (BNVA) | payer OTHER, SELFPAY | PROVIDERS: Visit Provider Nurse Practitioner | DX: K59.04 Chronic idiopathic constipation (principal); K21.9 Gastro-esophageal reflux disease without esophagitis | CPT/HCPCS: 99212 ==

== ENCOUNTER 2023-04-01 13:46 | Outpatient (AMB) | payer OTHER, SELFPAY ==
[2023-04-01 14:00] VITALS: BP 122/74; PULSE 73; O2SAT 96
--- NOTE | 2023-04-01 14:00 | A.OFFVIS_ITS ---
Intake Vital Signs 04/01/23 14:00 Height 5 ft 7 in BP 122/74 Blood Pressure Location Rt brachial Position Sitting Pulse 73 Pulse Source Pulse Oximeter Pulse Oximetry (%) 96 Oxygen Delivery Method Room Air Intake Visit Reasons: 3 mo f/u for Dymielidating disease-Confirmed Intake Note: Pt presents as a 3 month f/u. Allergies No Known Allergies Allergy (Verified 04/01/23 14:04) Medication List - Last Reconciled 04/01/23 by Elsie Stephenson MD alpha lipoic acid 300 mg PO BID aspirin 1 tab PO DAILY blood sugar diagnostic (FreeStyle Lite Strips) As directed 3 times a day blood-glucose meter (FreeStyle Lite Meter kit) As directed blood-glucose meter,continuous ([employer] G6 Route Vending Machine Servicer) As directed capsaicin 0.1% 1 appl topical BID PRN carvedilol 1 tab PO DAILY cyclosporine 0.05% (Restasis) 1 drp ophthalmic (eye) Q12H dulaglutide (Trulicity) mg subcut QWEEK empagliflozin (Jardiance) 25 mg PO DAILY gabapentin 300 mg PO BEDTIME hydroxyzine HCl 25 mg PO TID PRN insulin aspart U-100 (Novolog FlexPen U-100 Insulin aspart) 30 units subcut DAILY insulin glargine (Lantus Solostar U-100 Insulin) 30 units subcut BEDTIME ketoconazole 2% 1 appl topical DAILY lancets (FreeStyle Lancets) As directed 3 times a day levothyroxine 137 mcg PO DAILY linaclotide (Linzess) 290 mcg PO QAM 30 days melatonin 1 tab PO BEDTIME PRN metformin ER 1,000 mg PO multivitamin 1 tab PO DAILY multivitamin with folic acid 400 mcg (Daily-Fidelia (with folic acid)) 0 tabs PO omeprazole 40 mg PO DAILY pregabalin 75 mg PO DAILY rosuvastatin 10 mg PO BEDTIME sacubitril-valsartan 97-103 mg (Entresto) 1 tab PO HPI HPI Comments History of Present Illness Details A certified staff interpreter Kayli Duque helped with history today. 67y/o left handed female with h/o long standing diabetes for over 30 years comes for further evaluation of neuropathy. she is doing well on gabapentin and alpha lipoic acid . she reports numbness and tingling in distal lower extremities for over 10 years . 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 Her last Hg A1 C was 8 she still has numbness, squeezing , tingling in bilateral feet worse when she is resting . The symptoms are worse in evening and also wakes her up from sleep. she also reports weakness of her left leg . she also has back pain . No urinary difficulties. she also has mild numbness in her hands now. In 2017 she had fracture of her left foot and has been weak and painful since then . she also has bone spurs.she also reports swelling of his left foot. [facility] Medical History CAD (coronary artery disease) Celiac disease Depression High cholesterol HTN (hypertension) Hypothyroid Insulin dependent type 1 diabetes mellitus Neuropathy Palpitations Restless legs syndrome (RLS) Surgical History H/O abdominoplasty H/O bilateral breast reduction surgery H/O heart artery stent History of arthroplasty of left knee History of carpal tunnel release of both wrists History of section Hx of colonoscopy Family History Mother Diabetes High blood pressure Father Diabetes High blood pressure Paternal Aunt Bone cancer Sister Breast cancer Sister Lymph node cancer Social History Household Members: None Housing: Apartment Are you a primary memory care program director to a significant other at home: No Do you presently have visiting nurse or other home services: No Alcohol intake: never Patient Tobacco Use Status: Never used Tobacco service: No Current occupational status: disabled Physical Exam Vital Signs: Last Vital Signs Pulse 73 04/01/23 14:00 BP 122/74 04/01/23 14:00 Pulse Ox 96 04/01/23 14:00 Oxygen Delivery Method Room Air 04/01/23 14:00 Const General: cooperative, healthy appearing and comfortable Nutritional Appearance: average body habitus Orientation/consciousness: patient oriented x3 Limitations: physical limitations HEENT Head: Yes normal to inspection Eyes Pupils: Equal, round and reactive pupils present Neuro Other: 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 General: patient oriented x3, tone normal and moves all extremities Cranial nerves: Yes Facial sensation intact/muscles of mastication intact, Yes Equal, round and reactive pupils present, Yes Bilaterally intact EOM present, Yes Nystagmus not present, Yes Normal facial strength present and Yes Symmetric palate elevation present Cognition (Neuro): normal cognition Gait exam (Neuro): Antalgic gait present Motor exam (neuro): 5/5 motor strength present throughout and Normal motor muscle tone present throughout Deep tendon reflexes (DTR's): Right triceps reflex intensity grade: 1+, Left triceps reflex intensity grade: 1+, Rt Biceps (C5, C6): 1+, Left biceps reflex intensity grade: 1+, Right brachioradialis reflex intensity grade: 1+, Left brachioradialis reflex intensity grade: 1+, Right patellar reflex intensity grade: 0, Left patellar reflex intensity grade: 0, Right ankle reflex intensity grade: 0 and Left ankle reflex intensity grade: 0 Coordination: [id number] test normal Assessment & Plan Assessment & Plan (1) Neuropathy: Comment: nelli diabetic with component of CRPS in her left foot Code(s): G62.9 - Polyneuropathy, unspecified (2) Restless legs syndrome (RLS): Code(s): G25.81 - Restless legs syndrome Plan Continue gabapentin 300mg qhs will consider referring to pain specialist for CRPS. Reviewed EMG results Increase alpha lipoic acid 300mg bid Medications: Changed From alpha lipoic acid 300 mg PO DAILY 30 caps 6RF To alpha lipoic acid 300 mg PO BID 60 caps 6RF Coding Level of Care Code Est Pt Level 4 (82559) Diagnoses Neuropathy G62.9 Restless legs syndrome (RLS) G25.81
== END 2023-04-01 14:23 | disposition home or self-care (01) ==
PROVIDERS: Visit Provider Psychiatry & Neurology Neurology
DX: G62.9 Polyneuropathy, unspecified (principal); G25.81 Restless legs syndrome
CPT/HCPCS: 99214

== ENCOUNTER → 2023-04-01 13:46 | Outpatient (BNVA) | payer OTHER, SELFPAY | PROVIDERS: Visit Provider Psychiatry & Neurology Neurology | DX: G25.81 Restless legs syndrome (principal); E10.40 Type 1 diabetes mellitus with diabetic neuropathy, unspecified; E10.65 Type 1 diabetes mellitus with hyperglycemia; Z79.4 Long term (current) use of insulin | CPT/HCPCS: 99212 ==

== ENCOUNTER 2023-04-03 08:23 | Outpatient (REF) | payer OTHER, SELFPAY ==
--- NOTE | ~2023-04-03 | XR_ITS ---
EXAMINATION: XR SHOULDER, LEFT CLINICAL INFORMATION: Acute pain left shoulder COMPARISON: None available. TECHNIQUE: AP external rotation, Grashey, scapular Y, and axillary views of the left shoulder. FINDINGS: Advanced degenerative changes in the acromioclavicular joint with joint space narrowing and hypertrophic change. Moderate degenerative changes at the glenohumeral joint. Degenerative changes in the partially imaged upper thoracic spine. Small soft tissue calcifications along the superior aspect of the glenohumeral joint. Spurring along the inferior aspect of the acromion. Sclerosis and irregularity along the greater tuberosity. XR/XR shoulder LT min 2V IMPRESSION: Advanced degenerative changes in the left shoulder as detailed above.
[2023-04-03 10:06] LABS: Cholesterol 138 mg/dL; HDL Cholesterol 43 mg/dL; LDL Cholesterol Calculated 65 mg/dl; Triglycerides 153 mg/dL
== END 2023-04-03 08:24 | disposition home or self-care (01) ==
LOC: HO.XRAY 08:23
PROVIDERS: PCP Nurse Practitioner Primary Care; Visit Provider Nurse Practitioner Primary Care
DX: M25.512 Pain in left shoulder (principal); E78.2 Mixed hyperlipidemia
CPT/HCPCS: 36415; 73030; 80061

== ENCOUNTER 2023-04-14 15:25 | Outpatient (AMB) | payer OTHER, SELFPAY ==
--- NOTE | 2023-04-14 15:52 | MHC.AMDMED ---
Intake Intake Visit Reasons: dm Rotary Envelope Machine Operator Required: Yes Rotary Envelope Machine Operator Language: Country Manager Name: [place] [facility] [place] Information Interpreted: non-clinical & clinical Accompanied by: Self / Same As Patient Allergies No Known Allergies Allergy (Verified 04/01/23 14:04) HPI Comprehensive Diabetes Asmnt Most Recent Diabetes Results: Cholesterol 138 mg/dL 04/03/23 HDL Cholesterol 43 mg/dL 04/03/23 Triglycerides 153 mg/dL 04/03/23 PFSH Medical History CAD (coronary artery disease) Celiac disease Depression High cholesterol HTN (hypertension) Hypothyroid Insulin dependent type 1 diabetes mellitus Neuropathy Palpitations Restless legs syndrome (RLS) Surgical History H/O abdominoplasty H/O bilateral breast reduction surgery H/O heart artery stent History of arthroplasty of left knee History of carpal tunnel release of both wrists History of section Hx of colonoscopy Family History Mother Diabetes High blood pressure Father Diabetes High blood pressure Paternal Aunt Bone cancer Sister Breast cancer Sister Lymph node cancer Social History Household Members: None Housing: Apartment Are you a primary morning caregiver to a significant other at home: No Do you presently have visiting nurse or other home services: No Alcohol intake: never Patient Tobacco Use Status: Never used Tobacco service: No Current occupational status: disabled Assessment & Plan Assessment & Plan (1) Type 2 diabetes mellitus: Code(s): E11.9 - Type 2 diabetes mellitus without complications Plan: Personal Continuous Glucose Monitor: Patient has been unable to get Dexcom G6 to work correctly cellphone. One reviewed cellphone osmani at today's visit blue tooth was off In addition patient had transmitter number. Patient did have a transmitter with her but she did not know if it was the transmitter prior to the current transmitter. Explained to patient that we could enter the need transmitter number, insert the sensor but if cellphone does not connect to the new transmitter within 30 minutes the assumption would be that that transmitter has also . If new transmitter does not connect to cellphone patient needs to contact CGM supplier to find out when she is due for her next transmitter. Placed new sensor in transmitter on back right arm Patient left before cellphone connected to transmitter Instructed patient that if and when transmitter connects she will need to start new sensor Reviewed how to interpret trend arrows Reminded patient that to check finger sticks if symptoms do not match sensor reading. Discussed lag time between finger stick and sensor data.? Patient able to insert sensor independently at home without issue.? Patient Instructions: Patient instruction: CGM provides information on blood glucose control throughout the day, including hyperglycemia and hypoglycemia. ? Continue to monitor blood glucose as instructed. Follow nutrition guidelines provided. Report any discomfort promptly to health care provider. ?Stay well-hydrated. You can bathe ,shower, swim and exerce while wearing the glucose sensor. Do not submerge glucose sensor in water for more than 30 minutes. Remove sensor for MRI or CAT scan. Avoid Xray machine in airports - remove sensor or request wand With Diabetes Education nurse one month Coding Level of Care Code Est Pt Level 1 (77885) Diagnoses Type 2 diabetes mellitus E11.9
== END 2023-04-14 15:56 | disposition home or self-care (01) ==
PROVIDERS: PCP Nurse Practitioner Primary Care; Visit Provider Registered Nurse Diabetes Educator
DX: E11.9 Type 2 diabetes mellitus without complications (principal)

== ENCOUNTER → 2023-04-14 15:25 | Outpatient (BNVA) | payer OTHER, SELFPAY | PROVIDERS: PCP Nurse Practitioner Primary Care; Visit Provider Registered Nurse Diabetes Educator | DX: E11.9 Type 2 diabetes mellitus without complications (principal) | CPT/HCPCS: 99211 ==

== ENCOUNTER → 2023-04-21 10:23 | Outpatient (BNVA) | payer OTHER, SELFPAY | PROVIDERS: Visit Provider Dietitian, Registered | DX: E11.9 Type 2 diabetes mellitus without complications (principal) | CPT/HCPCS: 97803 ==

== ENCOUNTER 2023-04-23 13:13 | Outpatient (REF) | payer OTHER, SELFPAY ==
[2023-04-23 16:57] LABS: TSH reflex Free T4 1.87 uIU/mL (0.32-4.0)
== END 2023-04-23 13:14 | disposition home or self-care (01) ==
LOC: HO.CHCLDS 13:13
PROVIDERS: Visit Provider Nurse Practitioner Primary Care
DX: E03.9 Hypothyroidism, unspecified (principal)
CPT/HCPCS: 36415; 84443

== ENCOUNTER 2023-04-30 12:52 | Outpatient (AMB) | payer OTHER, SELFPAY ==
[2023-04-30 12:59] VITALS: BP 118/68; PULSE 82; BMI 34.4
--- NOTE | 2023-04-30 12:59 | MHC.OFFVIS ---
Intake Vital Signs 04/30/23 12:59 Height 5 ft 7 in Weight 219 lb 5.759 oz BMI 34.4 BP 118/68 Blood Pressure Location Lt brachial Position Sitting Pulse 82 Pulse Source Pulse Oximeter Intake Visit Reasons: f/u Type 2 DM Intake Note: Patient here today for Diabetes type 2 follow up visit. Patient receives DME supplies through: For eye care: 04/2022 For foot care:09/04 POC-293 mg/dl A1c- 8.9% Instructional Technologist Required: Yes Instructional Technologist Language: Metal Hanger Name: Markos [id number] Information Interpreted: non-clinical & clinical Accompanied by: Self / Same As Patient Allergies No Known Allergies Allergy (Verified 04/30/23 13:05) HPI HPI Comments History of Present Illness Details 67 YO F who is seen in consultation for T2DM at the request of PCP. Initially diagnosed with T2DM in 20 yrs . Was initially started on treatment with metformin 1000 mg BID . Current regimen metformin 1000 mg BID Lantus 30 units Novolog 30 units premeals . Trulicity 3 mg Qwkly was not taking but back on Jardiance 25 mg QD Glucometer download shows she is checking her point cares 3 times a day. Average glucose is 224 with range 86-335 . 19% range with 81% hyperglycemia and no hypoglycemia. There is post-breakfast hyperglycemia Reports low sugars 2 X wk . Feels sx weakness Treats lows with diabetic shakes . Checks sugar after to ensure it is rising. Treats and checks 1 hr after correction . Family history of T2DM in brothers and sisters . Has eyes checked yearly, last eye exam 04/2023 has appt in 07/2023 o , has retinopathy. has neuropathy, sees podiatry. Denies nephropathy, on SAROJ/ARB. . Has HLD, on statin. Has CAD. Not Had diabetes education. [facility] Medical History CAD (coronary artery disease) Celiac disease Depression High cholesterol HTN (hypertension) Hypothyroid Insulin dependent type 1 diabetes mellitus Neuropathy Palpitations Restless legs syndrome (RLS) Surgical History H/O abdominoplasty H/O bilateral breast reduction surgery H/O heart artery stent History of arthroplasty of left knee History of carpal tunnel release of both wrists History of section Hx of colonoscopy Family History Mother Diabetes High blood pressure Father Diabetes High blood pressure Paternal Aunt Bone cancer Sister Breast cancer Sister Lymph node cancer Social History Household Members: None Housing: Apartment Are you a primary patient care representative to a significant other at home: No Do you presently have visiting nurse or other home services: No Alcohol intake: never Patient Tobacco Use Status: Never used Tobacco service: No Current occupational status: disabled Physical Exam Vital Signs: Last Vital Signs Pulse 82 04/30/23 12:59 BP 118/68 04/30/23 12:59 BMI result Body Mass Index 34.4 Absence of Cushingoid features. Absence of acromegalic features. Neck exam reveals nl size thyroid about 15 gms. No thyroid nodules palpable. No carotid bruits present. Lungs CTA. Heart S1 S2, Reg R/R. No M/R/ G. Skin exam reveals absence of vitiligo or acanthosis nigricans. Abdominal exam reveals Soft NT/ND with NA BS. No organomegaly present. Neck Other: . Extrem Other: Visual exam of foot performed. No ulcerations or open lesions. No onchomycosis, no callouses.Pulses 2 + distally Sensation decreased to monofilament exam. Vibratory sensation sensed is decreased with 128 Hz tuning fork Results AMB Hemoglobin A1c AMB Hemoglobin A1c 8.9 % Last Edit by Kayli Gomez on 04/30/23 13:24 Results Reviewed Results Reviewed: 04/30/23 13:12 Glucose, Whole Blood Routine Laboratory Last Values Glucose (Clinic) 293 mg/dL (60-115) H 04/30/23 13:12 Hgb A1c (Clinic) 8.9 % (4.0-6.0) H 04/30/23 13:14 Assessment & Plan Assessment & Plan (1) Type 2 diabetes mellitus: Code(s): E11.9 - Type 2 diabetes mellitus without complications Plan: This is a 67-year-old female with a history of type 2 diabetes being treated metformin, Trulicity and basal-bolus insulin with poor glycemic control and known macrovascular and microvascular complications namely CAD and neuropathy Plan is to change the Trulicity to Ozempic 1 mg Q weekly as tolerated. If the patient fails or is intolerant to Ozempic will go to [facility] . Patient was instructed to restart the Dexcom and she will. follow-up with the visual educator to initiate this prior to switching the G LP 1. Monjaro 2.5 mg samples given to patient lot number [id number] expiration 10/16/2024 Orders: Orders AMB Hemoglobin A1c Today E11.9 - Type 2 diabetes mellitus without complications Medications: New semaglutide (Ozempic) 1 mg (0.75 mL) subcut QWEEK 3 mL 5RF Coding Level of Care Code Est Pt Level 4 (92754) Diagnoses Type 2 diabetes mellitus E11.9
[2023-04-30 13:16] LABS: Glucose, Whole Blood 293 mg/dL (60-115)
== END 2023-04-30 14:23 | disposition home or self-care (01) ==
PROVIDERS: PCP Nurse Practitioner Primary Care; Visit Provider Internal Medicine Endocrinology, Diabetes & Metabolism
DX: E11.9 Type 2 diabetes mellitus without complications (principal)
CPT/HCPCS: 99214

== ENCOUNTER → 2023-04-30 12:52 | Outpatient (BNVA) | payer OTHER, SELFPAY | PROVIDERS: Visit Provider Internal Medicine Endocrinology, Diabetes & Metabolism | DX: E11.9 Type 2 diabetes mellitus without complications (principal) | CPT/HCPCS: 82947; 83036; 99212 ==

== ENCOUNTER 2023-05-14 12:11 | Outpatient (AMB) | payer OTHER, SELFPAY ==
--- NOTE | 2023-05-14 13:14 | MHC.AMDMED ---
Intake Intake Visit Reasons: dm Outside Residential Sales Professional Required: Yes Outside Residential Sales Professional Language: Grounding Engineer Name: Mary [id number] Information Interpreted: non-clinical & clinical Accompanied by: Self / Same As Patient Allergies No Known Allergies Allergy (Verified 04/30/23 13:05) HPI Comprehensive Diabetes Asmnt Most Recent Diabetes Results: Cholesterol 138 mg/dL 04/03/23 HDL Cholesterol 43 mg/dL 04/03/23 Triglycerides 153 mg/dL 04/03/23 PFSH Medical History CAD (coronary artery disease) Celiac disease Depression High cholesterol HTN (hypertension) Hypothyroid Insulin dependent type 1 diabetes mellitus Neuropathy Palpitations Restless legs syndrome (RLS) Surgical History H/O abdominoplasty H/O bilateral breast reduction surgery H/O heart artery stent History of arthroplasty of left knee History of carpal tunnel release of both wrists History of section Hx of colonoscopy Family History Mother Diabetes High blood pressure Father Diabetes High blood pressure Paternal Aunt Bone cancer Sister Breast cancer Sister Lymph node cancer Social History Household Members: None Housing: Apartment Are you a primary vision care associate to a significant other at home: No Do you presently have visiting nurse or other home services: No Alcohol intake: never Patient Tobacco Use Status: Never used Tobacco service: No Current occupational status: disabled Assessment & Plan Assessment & Plan (1) Type 2 diabetes mellitus: Code(s): E11.9 - Type 2 diabetes mellitus without complications Plan: Learning objectives: The patient was provided with verbal and written education on the following topics as outlined below. Assess patient education level/literacy/barriers Patient questions/concerns The patient met all learning objectives and was able to verbalize understanding and provide teach back of education topics discussed . The patient was provided with the opportunity to ask questions and all questions were answered. Patient has been unable to use Dexcom G6 sensor because she lost transmitter. She is not due for transmitter update until 06/05/2023 Suggested to patient that we submit new order for Dexcom G7 to DME. Patient does not recall which DME she is using instructed patient to call clinic and leave message regarding DME company. Once we know DME we can submit cm and for Dexcom G7 sensor Patient given 3 Dexcom G7 sensors, and set Dexcom G7 osmani upon patient's phone Topics covered in today?s session included: Medications (If applicable) ? Name of medication? Dosing/administration instructions? Mechanism of action? Potential side effects? Potential adverse reaction and appropriate treatment? Review onset, peak, duration Assess for concerns re: insurance coverage, cost, barriers to compliance Insulin/Injectables (If applicable) ? Storage/care of insulin? Injection sites? Site rotation? Onset, peak, duration ? Drawing up insulin? Injecting insulin/other injectables? Sharps disposal Continuous blood glucose monitoring (if applicable) Hypoglycemia and Hyperglycemia ? Signs and symptoms? Causes? Treatment? Preventing hypoglycemia? When to seek medical attention ?Blood glucose targets and how you feel when your blood glucose is in and out of your target ranges. ?Monitoring and knowing your A1C. ?What can make blood glucose go up and down and preventing high and low blood glucose. ?Review of blood sugar targets in expected goal range and outside of expected goal range. ?Problem solving and preventing hyper/hypoglycemia. ?Sick day management of diabetes. ?Using blood sugar results in decision making process in managing diabetes. ?Patient was receptive to information provided and participated in the discussion. Asked?appropriate questions and demonstrated good understanding of the topics discussed.? ? Educational Materials: The patient was provided with the following written educational materials: Target Goal handout Patient Response to instructions: Comprehension of Instructions: Fair Readiness to make changes:? Contemplation How confident they feel about making changes: Fair Medications: Discontinued semaglutide (Ozempic) Discontinued Reason: Doctor's Order 1 mg (0.75 mL) subcut QWEEK 3 mL 5RF Patient Instructions: Patient will call clinic with DME company Patient will follow-up with hospital educator in 1 month Coding Level of Care Code Est Pt Level 1 (97464) Diagnoses Type 2 diabetes mellitus E11.9
== END 2023-05-14 13:15 | disposition home or self-care (01) ==
PROVIDERS: PCP Nurse Practitioner Primary Care; Visit Provider Registered Nurse Diabetes Educator
DX: E11.9 Type 2 diabetes mellitus without complications (principal)

== ENCOUNTER → 2023-05-14 12:11 | Outpatient (BNVA) | payer OTHER, SELFPAY | PROVIDERS: PCP Nurse Practitioner Primary Care; Visit Provider Registered Nurse Diabetes Educator | DX: E11.9 Type 2 diabetes mellitus without complications (principal) | CPT/HCPCS: 99211 ==

== ENCOUNTER 2023-05-15 08:47 | Outpatient (REF) | payer OTHER, SELFPAY ==
[2023-05-15 12:23] LABS: Alanine Aminotransferase 22 U/L (0-31); Albumin Level 4.2 g/dL (3.5-5.0); Alkaline Phosphatase 44 U/L (39-117); Anion Gap 15 (12-20); Aspartate Amino Transferase 21 U/L (5-31); Bilirubin Total 0.4 mg/dL (0.0-1.0); Blood Urea Nitrogen 31 mg/dL (9-16); Calcium 9.9 mg/dL (8.4-10.2); Carbon Dioxide 24 mmol/L (22-29); Chloride 103 mmol/L (96-108); Estimated Glomerular Filt Rate 59; Glucose Random 156 mg/dL (60-115); Magnesium 2.3 mg/dL (1.6-2.6); Potassium 4.6 mmol/L (3.3-5.1); Sodium 137 mmol/L (135-145); Total Protein 7.8 g/dL (6.5-8.0)
== END 2023-05-15 08:48 | disposition home or self-care (01) ==
LOC: HO.HHCL 08:47
PROVIDERS: Visit Provider Internal Medicine
DX: I50.20 Unspecified systolic (congestive) heart failure (principal)
CPT/HCPCS: 36415; 80053; 83735

== ENCOUNTER 2023-06-03 08:40 | Outpatient (AMB) | payer OTHER, SELFPAY ==
--- NOTE | 2023-06-03 09:16 | A.OFFVIS_ITS ---
Intake Vital Signs 06/03/23 09:17 Height 5 ft 7 in Weight 219 lb BMI 34.3 Intake Visit Reasons: Hyperion Analyst- Left shoulder arthritis Intake Note: Bozena a 67 year old left hand dominant female who presents today for an evaluation of left shoulder pain. Patient reports pain has been present for a while and has received cortisone injections in the past that provided her good relief. States last injection was over 15 years ago here at [facility] [place]. Her pain has been getting the worse the past year. States pain radiates down her arm and describes as a burning sensation. Velocity Shooter Name: Patel ID#[id number] Allergies No Known Allergies Allergy (Verified 06/03/23 09:18) HPI Hyperion Analyst- Left shoulder arthritis HPI Details 67-year-old left hand dominant female yuliet bond presents to the office today with an executive consultant for evaluation of left shoulder pain for about an year. She states she has worsening pain and burning sensation in her left shoulder which radiates down to her arm. She had a cortisone injection about 15 years ago which provided her good relief. She has a history of diabetes. [facility] Medical History CAD (coronary artery disease) Celiac disease Depression High cholesterol HTN (hypertension) Hypothyroid Insulin dependent type 1 diabetes mellitus Neuropathy Palpitations Restless legs syndrome (RLS) Surgical History H/O bilateral breast reduction surgery History of carpal tunnel release of both wrists History of section H/O abdominoplasty Hx of colonoscopy History of arthroplasty of left knee H/O heart artery stent Family History Mother Diabetes High blood pressure Father Diabetes High blood pressure Paternal Aunt Bone cancer Sister Breast cancer Sister Lymph node cancer Social History Household Members: None Housing: Apartment Are you a primary transitional care manager to a significant other at home: No Do you presently have visiting nurse or other home services: No Alcohol intake: never Patient Tobacco Use Status: Never used Tobacco service: No Current occupational status: disabled Review of Systems Const All systems reviewed & are unremarkable except as noted in HPI and below Physical Exam Vital Signs: BMI result Body Mass Index 34.3 Const General: cooperative and no acute distress Orientation/consciousness: patient oriented x3 Resp Effort & Inspection: normal respiratory effort and able to speak in complete sentences Cardio Peripheral pulses: Peripheral pulses 2+ throughout Neuro General: patient oriented x3 Extrem Other: Left shoulder normal to inspection. Tenderness over the bicipital groove and along the deltoid region of the shoulder. Forward flexion to 175, external rotation to 90, internal rotation to S1. 5/5 RTC strength. Positive cross body abduction. NVI. Results Reviewed Results Reviewed: xrays of left shoulder obtained in the ED on 04/03/23 show significant ac joint oa Assessment & Plan Assessment & Plan (1) Osteoarthritis of left acromioclavicular joint: Code(s): M19.012 - Primary osteoarthritis, left shoulder Plan We did discuss the benefits of steroid injection along with physical therapy. She does have a nuclear stress test tomorrow so we will hold off on the injection at this time. I did put a referral to physical therapy and she will see me back in 1-2 weeks for a left shoulder steroid injection. Orders: Orders PT Evaluation and Treatment Today M19.012 - Primary osteoarthritis, left shoulder Patient Instructions: Scribed for Kristopher Olivares PA-C, by Harmeet Contreras medical library assistant, on 06/03/2023 at 9:00 AM EST. Kristopher Mahmood PA-C, have personally reviewed and agree with the information entered by the scribe. Coding Level of Care Code New Pt Level 3 (42856) Diagnoses Osteoarthritis of left acromioclavicular joint M19.012
[2023-06-03 09:17] VITALS: BMI 34.3
== END 2023-06-03 09:48 | disposition home or self-care (01) ==
PROVIDERS: PCP Nurse Practitioner Primary Care; Visit Provider Physician Assistant
DX: M19.012 Primary osteoarthritis, left shoulder (principal)
CPT/HCPCS: 99213

== ENCOUNTER → 2023-06-03 08:40 | Outpatient (BNVA) | payer OTHER, SELFPAY | PROVIDERS: PCP Nurse Practitioner Primary Care; Visit Provider Physician Assistant | DX: M19.012 Primary osteoarthritis, left shoulder (principal) | CPT/HCPCS: 99212 ==

== ENCOUNTER 2023-06-29 09:31 | Outpatient (AMB) | payer OTHER, SELFPAY ==
--- NOTE | 2023-06-29 10:23 | MHC.OFFVIS ---
Intake Intake Visit Reasons: ov- left shoulder steroid injection Intake Note: Bozena a 67 year old left hand dominant female who presents today for a left shoulder injection. Allergies No Known Allergies Allergy (Verified 06/29/23 10:24) HPI ov- left shoulder steroid injection HPI Details 67-year-old left hand dominant female who returns to the office today for a left shoulder injection. [facility] Medical History CAD (coronary artery disease) Celiac disease Depression High cholesterol HTN (hypertension) Hypothyroid Insulin dependent type 1 diabetes mellitus Neuropathy Palpitations Restless legs syndrome (RLS) Surgical History H/O bilateral breast reduction surgery History of carpal tunnel release of both wrists History of section H/O abdominoplasty Hx of colonoscopy History of arthroplasty of left knee H/O heart artery stent Family History Mother Diabetes High blood pressure Father Diabetes High blood pressure Paternal Aunt Bone cancer Sister Breast cancer Sister Lymph node cancer Social History Household Members: None Housing: Apartment Are you a primary aged or disabled carer to a significant other at home: No Do you presently have visiting nurse or other home services: No Alcohol intake: never Patient Tobacco Use Status: Never used Tobacco service: No Current occupational status: disabled Review of Systems Const All systems reviewed & are unremarkable except as noted in HPI and below Physical Exam Const General: cooperative and no acute distress Orientation/consciousness: patient oriented x3 Resp Effort & Inspection: normal respiratory effort and able to speak in complete sentences Cardio Peripheral pulses: Peripheral pulses 2+ throughout Neuro General: patient oriented x3 Extrem Other: Left shoulder normal to inspection. Tenderness over the bicipital groove and along the deltoid region of the shoulder. Forward flexion to 175, external rotation to 90, internal rotation to S1. 5/5 RTC strength. Positive cross body abduction. NVI. Office Procedures Joint Injection/Drain Joint Injection/Drain Primary Site: left shoulder Prep: site was prepped using aseptic technique, ethochloride spray was applied and injection warnings given Injected: 40 mg of, DepoMedrol, with 8 mL of, 1% plain lidocaine and in the subcromial space Approach Used: posterolateral Procedure: The patient tolerated the procedure well and there was some relief with the local anesthesia Coding 86841 - Glenohumeral/Tronchanteric Bursa/Intraarticular Procedure code (CPT) selection complete Results Reviewed Results Reviewed: 06/29/23 10:48 Lidocaine HCl 2 % MPF [Xylocaine 2 % MPF] 5 ml .ROUTE .STK-MED ONE methylPREDNISolone acetate [DEPO-MedroL] 40 mg .ROUTE .STK-MED ONE Assessment & Plan Assessment & Plan (1) Osteoarthritis of left acromioclavicular joint: Code(s): M19.012 - Primary osteoarthritis, left shoulder Plan We discussed options today which include steroid injection. They did consent to move forward with the left shoulder injection, which was tolerated well. I recommended rest, ice and elevation and OTC anti-inflammatories PRN for discomfort. We also discussed their diabetes and the effect the steroid can have on their blood glucose levels; therefore, they will continue to monitor these very closely over the next 72 hours. If there are any concerns, they should report to the ED immediately. Patient Instructions: Scribed for Kristopher Olivares PA-C, by Harmeet Contreras medical physiologist, on 06/29/2023 at 10:30 AM PHI. Kristopher Mahmood PA-C, have personally reviewed and agree with the information entered by the scribe. Coding Level of Care Code Est Pt Level 3 (02256) Diagnoses Osteoarthritis of left acromioclavicular joint M19.012 CPT Codes Coding - Joint 7: 56712 - Glenohumeral/Tronchanteric Bursa/Intraarticular ([id number])
== END 2023-06-29 11:10 | disposition home or self-care (01) ==
PROVIDERS: PCP Nurse Practitioner Primary Care; Visit Provider Physician Assistant
DX: M19.012 Primary osteoarthritis, left shoulder (principal)
CPT/HCPCS: 20610

== ENCOUNTER → 2023-06-29 09:31 | Outpatient (BNVA) | payer OTHER, SELFPAY | PROVIDERS: PCP Nurse Practitioner Primary Care; Visit Provider Physician Assistant | DX: M19.012 Primary osteoarthritis, left shoulder (principal) | CPT/HCPCS: 20610; J1020 ==

== ENCOUNTER 2023-07-13 12:49 | Outpatient (REF) | payer OTHER, SELFPAY ==
--- NOTE | ~2023-07-13 | XR_ITS ---
EXAMINATION: XR SHOULDER, RIGHT CLINICAL INFORMATION: Pain in right shoulder. COMPARISON: None available. TECHNIQUE: Four views of the right shoulder. FINDINGS: Large spur along the inferior aspect of the acromion. Tiny calcifications superior to the glenoid and lateral to the humeral head. Degenerative changes in the imaged upper thoracic spine. Mild degenerative changes in the acromioclavicular joint with joint space narrowing and hypertrophic change. Degenerative changes with hypertrophic change along the glenoid. XR/XR shoulder RT min 2V IMPRESSION: Large spur along the inferior aspect of the acromion. Mild degenerative changes.
== END 2023-07-13 12:50 | disposition home or self-care (01) ==
LOC: HO.HOSX 12:49
PROVIDERS: PCP Nurse Practitioner Primary Care; Visit Provider Physician Assistant
DX: M19.011 Primary osteoarthritis, right shoulder (principal)
CPT/HCPCS: 20610; 73030; J1020; J1040

== ENCOUNTER 2023-07-13 12:49 | Outpatient (AMB) | payer OTHER, SELFPAY ==
--- NOTE | 2023-07-13 12:54 | A.OFFVIS_ITS ---
Intake Vital Signs 07/13/23 12:55 Height 5 ft 7 in Weight 219 lb BMI 34.3 Intake Visit Reasons: OV-Right shoulder injection Intake Note: Bozena is a 67 year old female who presents today for a right shoulder injection. Allergies No Known Allergies Allergy (Verified 07/13/23 12:54) HPI OV-Right shoulder injection HPI Details 67-year-old female who returns to the [facility] today for right shoulder injection. She has pain with daily activities, lifting and reaching. [facility] Medical History CAD (coronary artery disease) Celiac disease Depression High cholesterol HTN (hypertension) Hypothyroid Insulin dependent type 1 diabetes mellitus Neuropathy Palpitations Restless legs syndrome (RLS) Surgical History (Reviewed 06/29/23 @ 10:24 by Bharati Bazan [facility]) H/O bilateral breast reduction surgery History of carpal tunnel release of both wrists History of section H/O abdominoplasty Hx of colonoscopy History of arthroplasty of left knee H/O heart artery stent Family History Mother Diabetes High blood pressure Father Diabetes High blood pressure Paternal Aunt Bone cancer Sister Breast cancer Sister Lymph node cancer Social History Household Members: None Housing: Apartment Are you a primary child care education coordinator to a significant other at home: No Do you presently have visiting nurse or other home services: No Alcohol intake: never Patient Tobacco Use Status: Never used Tobacco service: No Current occupational status: disabled Review of Systems Const All systems reviewed & are unremarkable except as noted in HPI and below Physical Exam Vital Signs: BMI result Body Mass Index 34.3 Extrem Other: Right shoulder normal to inspection. Tenderness over the bicipital groove and along the deltoid region of the shoulder. Forward flexion to 175, external rotation to 90, internal rotation to S1. 5/5 RTC strength. Negative Galaviz and cross body abduction. NVI. Office Procedures Joint Injection/Drain Joint Injection/Drain Primary Site: right shoulder Prep: site was prepped using aseptic technique, ethochloride spray was applied and injection warnings given Injected: 40 mg of, DepoMedrol, with 8 mL of, 1% plain lidocaine and in the subcromial space Approach Used: posterolateral Procedure: The patient tolerated the procedure well and there was some relief with the local anesthesia Coding 47679 - Glenohumeral/Tronchanteric Bursa/Intraarticular Procedure code (CPT) selection complete Results Reviewed Results Reviewed: 07/13/23 12:53 Lidocaine HCl 2 % MPF [Xylocaine 2 % MPF] 5 ml .ROUTE .STK-MED ONE methylPREDNISolone acetate [DEPO-MedroL] 80 mg .ROUTE .STK-MED ONE 07/13/23 12:57 Lidocaine HCl 2 % MPF [Xylocaine 2 % MPF] 5 ml .ROUTE .STK-MED ONE methylPREDNISolone acetate [DEPO-MedroL] 40 mg .ROUTE .STK-MED ONE Xrays were obtained in the office today and personally reviewed by me of the right shoulder which shoulder ghj and isrrael ewing oa Assessment & Plan Assessment & Plan (1) Osteoarthritis of right shoulder: Code(s): M19.011 - Primary osteoarthritis, right shoulder Qualifiers: Osteoarthritis type: primary Qualified Code(s): M19.011 - Primary osteoarthritis, right shoulder Plan We discussed options today which include steroid injection. They did consent to move forward with the right shoulder injection, which was tolerated well. I recommended rest, ice and elevation and OTC anti-inflammatories PRN for discomfort. We also discussed their diabetes and the effect the steroid can have on their blood glucose levels; therefore, they will continue to monitor these very closely over the next 72 hours. If there are any concerns, they should report to the ED immediately. Orders: Orders XR shoulder RT min 2V Today M25.511 - Pain in right shoulder Patient Instructions: Scribed for Kristopher Olivares PA-C, by Harmeet Contreras medical coordinator pesticide use, on 07/13/2023 at 1:45 PM EST. Kristopher Mahmood PA-C, have personally reviewed and agree with the information entered by the scribe. Coding Level of Care Code Est Pt Level 3 (81662) Diagnoses Primary osteoarthritis of right shoulder M19.011 Osteoarthritis type: primary CPT Codes Coding - Joint 7: 53569 - Glenohumeral/Tronchanteric Bursa/Intraarticular ([id number])
[2023-07-13 12:55] VITALS: BMI 34.3
== END 2023-07-13 14:01 | disposition home or self-care (01) ==
PROVIDERS: PCP Nurse Practitioner Primary Care; Visit Provider Physician Assistant
DX: M19.011 Primary osteoarthritis, right shoulder (principal)
CPT/HCPCS: 20610

== ENCOUNTER 2023-07-22 10:39 | Outpatient (AMB) | payer OTHER, SELFPAY ==
--- NOTE | 2023-07-22 11:15 | A.OFFVIS_ITS ---
Intake Intake Visit Reasons: DM Veterans Contact Representative Required: Yes Veterans Contact Representative Language: Apprentice Painter Hand Name: Lesli [facility] [place] Information Interpreted: non-clinical & clinical Allergies No Known Allergies Allergy (Verified 07/13/23 12:54) HPI Comprehensive Diabetes Asmnt Most Recent Diabetes Results: Microalb/Creat Ratio 369.4 ug/mg cr 10/28/22 Cholesterol 138 mg/dL 04/03/23 HDL Cholesterol 43 mg/dL 04/03/23 Triglycerides 153 mg/dL 04/03/23 Creatinine 0.95 mg/dL (0.5-1.4) 05/15/23 Blood Urea Nitrogen 31 mg/dL (9-16) H 05/15/23 Sodium 137 mmol/L (135-145) 05/15/23 Potassium 4.6 mmol/L (3.3-5.1) 05/15/23 Chloride 103 mmol/L (96-108) 05/15/23 Carbon Dioxide 24 mmol/L (22-29) 05/15/23 Calcium 9.9 mg/dL (8.4-10.2) 05/15/23 AST 21 U/L (5-31) 05/15/23 ALT 22 U/L (0-31) 05/15/23 Total Protein 7.8 g/dL (6.5-8.0) 05/15/23 Albumin 4.2 g/dL (3.5-5.0) 05/15/23 [facility] Medical History CAD (coronary artery disease) Celiac disease Depression High cholesterol HTN (hypertension) Hypothyroid Insulin dependent type 1 diabetes mellitus Neuropathy Palpitations Restless legs syndrome (RLS) Surgical History H/O bilateral breast reduction surgery History of carpal tunnel release of both wrists History of section H/O abdominoplasty Hx of colonoscopy History of arthroplasty of left knee H/O heart artery stent Family History Mother Diabetes High blood pressure Father Diabetes High blood pressure Paternal Aunt Bone cancer Sister Breast cancer Sister Lymph node cancer Social History Household Members: None Housing: Apartment Are you a primary wound care nurse to a significant other at home: No Do you presently have visiting nurse or other home services: No Alcohol intake: never Patient Tobacco Use Status: Never used Tobacco service: No Current occupational status: disabled Assessment & Plan Assessment & Plan (1) Type 2 diabetes mellitus: Code(s): E11.9 - Type 2 diabetes mellitus without complications Plan: Learning objectives: The patient was provided with verbal and written education on the following topics as outlined below. The patient met all learning objectives and was able to verbalize understanding and provide teach back of education topics discussed . The patient was provided with the opportunity to ask questions and all questions were answered. Patient Assessment Assess patient education level/literacy/barriers Patient questions/concerns, patient reports DME company is [employer]. New CMN will be sent to upgrade patient to Dexcom G7. patient's last A1c 8.9% in April 2023 patient will be due for next A1c at visit with Dr. Cho in on 09/24/2022 What is Diabetes? Pathophysiology How the body produces and uses insulin Identify type of DM Risk factors Signs of Diabetes Blood glucose monitoring When/how often to test Target blood sugar ranges Patient using Dexcom G7 patient's average glucose for the past 2 weeks 183 mg/dL patient above target 49% patient at target 51% patient below target 0% Introduction to Nutrition Importance of healthy diet in managing DM Diet is personalized to individual preference Review patient?s regular diet/food preferences Who prepares meals/does food shopping/ Dining out?/ Barriers? How diet effects glucose Eating 3 balanced meals a day with small, healthy snacks between meals Review food groups Carbohydrates: What is a carbohydrate/Which food/food groups are considered carbohydrates Effect of carbohydrates on blood glucose Portion sizes Reading food labels Basic carb counting (if applicable per nursing assessment) Plate method Meal planning Recommendations: Follow plate method, consistent carbs and read nutritional labels. Smart Goal: patient will keep meals between 30-45 g of carbohydrate Educational Materials: The patient was provided with the following written educational materials: Planning Healthy Meals Handout Patient Response to instructions: Comprehension of Instructions: Fair Readiness to make changes: Contemplation How confident they feel about making changes: Positive Patient Instructions: aumentar Lantus a 34 unidades seguimiento con educador en diabetes en 1 mes Coding Level of Care Code Est Pt Level 1 (89071) Diagnoses Type 2 diabetes mellitus E11.9
== END 2023-07-22 11:18 | disposition home or self-care (01) ==
PROVIDERS: PCP Nurse Practitioner Primary Care; Visit Provider Registered Nurse Diabetes Educator
DX: E11.9 Type 2 diabetes mellitus without complications (principal)

== ENCOUNTER → 2023-07-22 10:39 | Outpatient (BNVA) | payer OTHER, SELFPAY | PROVIDERS: PCP Nurse Practitioner Primary Care; Visit Provider Registered Nurse Diabetes Educator | DX: E11.9 Type 2 diabetes mellitus without complications (principal) | CPT/HCPCS: 99211 ==

== ENCOUNTER 2023-08-20 08:22 | Outpatient (AMB) | payer OTHER, SELFPAY ==
--- NOTE | 2023-08-20 08:35 | MHC.AMDMED ---
Intake Intake Visit Reasons: dm Resistor Testing Machine Operator Required: Yes Resistor Testing Machine Operator Language: Jig Grinder Set Up Operator Name: Freddy [facility] [place] Information Interpreted: non-clinical & clinical Accompanied by: Self / Same As Patient Allergies No Known Allergies Allergy (Verified 07/13/23 12:54) HPI Comprehensive Diabetes Asmnt Most Recent Diabetes Results: Microalb/Creat Ratio 369.4 ug/mg cr 10/28/22 Cholesterol 138 mg/dL 04/03/23 HDL Cholesterol 43 mg/dL 04/03/23 Triglycerides 153 mg/dL 04/03/23 Creatinine 0.95 mg/dL (0.5-1.4) 05/15/23 Blood Urea Nitrogen 31 mg/dL (9-16) H 05/15/23 Sodium 137 mmol/L (135-145) 05/15/23 Potassium 4.6 mmol/L (3.3-5.1) 05/15/23 Chloride 103 mmol/L (96-108) 05/15/23 Carbon Dioxide 24 mmol/L (22-29) 05/15/23 Calcium 9.9 mg/dL (8.4-10.2) 05/15/23 AST 21 U/L (5-31) 05/15/23 ALT 22 U/L (0-31) 05/15/23 Total Protein 7.8 g/dL (6.5-8.0) 05/15/23 Albumin 4.2 g/dL (3.5-5.0) 05/15/23 [facility] Medical History CAD (coronary artery disease) Celiac disease Depression High cholesterol HTN (hypertension) Hypothyroid Insulin dependent type 1 diabetes mellitus Neuropathy Palpitations Restless legs syndrome (RLS) Surgical History H/O bilateral breast reduction surgery History of carpal tunnel release of both wrists History of section H/O abdominoplasty Hx of colonoscopy History of arthroplasty of left knee H/O heart artery stent Family History Mother Diabetes High blood pressure Father Diabetes High blood pressure Paternal Aunt Bone cancer Sister Breast cancer Sister Lymph node cancer Social History Household Members: None Housing: Apartment Are you a primary home care giver to a significant other at home: No Do you presently have visiting nurse or other home services: No Alcohol intake: never Patient Tobacco Use Status: Never used Tobacco service: No Current occupational status: disabled Assessment & Plan Assessment & Plan (1) Type 2 diabetes mellitus: Code(s): E11.9 - Type 2 diabetes mellitus without complications Plan: Personal Continuous Glucose Monitor: Patients CGM information reviewed Reviewed patient's sensor data: Hypoglycemia: ? 1% Hyperglycemia:? 52% Time in Range:? 47% Average glucose for the last 2 weeks? 187mg/dL patient has pattern of hyperglycemic events in the morning. patient reports that she does not eat breakfast but generally does has coffee, does not add sugar. discussed with patient the effects that caffeine can have on glucose levels. patient is currently taking 30 units of Lantus daily NovoLog before meals 30 units metformin 1000 mg daily Jardiance 25 mg daily Mounjaro 2.5 mg weekly patient ask questions regarding Synjardy, explained to patient that Synjardy is a medication that contains both metformin and Jardiance, if she is interested in obtaining prescription for Synjardy a she should ask Dr. Cho at next visit in September 2023 recommended to patient she increase Mounjaro 2.5 mg to 5 mg, this may assist with postprandial hyperglycemia. message sent to Dr. Cho to send prescription for Mounjaro 5 mg patient has not received Dexcom G7 sensors from [employer] [facility], e-mail sent to Serafin Cantor at [employer] to check on Dexcom G7 CMN Reviewed how to interpret trend arrows Reminded patient that to check finger sticks if symptoms do not match sensor reading. Discussed lag time between finger stick and sensor data.? Patient able to insert sensor independently at home without issue.? Patient Instructions: patient instructed follow-up with Diabetes Education nurse in 3 months Coding Level of Care Code Est Pt Level 1 (73769) Diagnoses Type 2 diabetes mellitus E11.9
== END 2023-08-20 08:56 | disposition home or self-care (01) ==
PROVIDERS: PCP Nurse Practitioner Primary Care; Visit Provider Registered Nurse Diabetes Educator
DX: E11.9 Type 2 diabetes mellitus without complications (principal)

== ENCOUNTER → 2023-08-20 08:22 | Outpatient (BNVA) | payer OTHER, SELFPAY | PROVIDERS: PCP Nurse Practitioner Primary Care; Visit Provider Registered Nurse Diabetes Educator | DX: E11.9 Type 2 diabetes mellitus without complications (principal) | CPT/HCPCS: 99211 ==

== ENCOUNTER 2023-09-18 09:18 | Outpatient (REF) | payer OTHER, SELFPAY ==
--- NOTE | ~2023-09-18 | MM_ITS ---
EXAMINATION: MM SCREENING DIGITAL BREAST TOMOSYNTHESIS, BILATERAL CLINICAL INFORMATION: Screening. Asymptomatic. The patient is status post bilateral breast reduction. COMPARISON: Mammography: This study is compared with prior exams dating back to 2017. TECHNIQUE: Digital breast tomosynthesis is performed in both the craniocaudal and mediolateral oblique views along with computer-aided detection (CAD). Synthesized 2D images are generated from the tomosynthesis. FINDINGS: There are scattered areas of fibroglandular density (ACR BI-RADS breast composition Category b). There are no significant masses, abnormal calcifications, or other abnormalities. Post reduction changes are present in each breast. MM/MM tomosynthesis screening BI IMPRESSION: No mammographic evidence of malignancy. ASSESSMENT: BI-RADS BI-RADS 2 - Benign Findings RECOMMENDATION: Routine annual mammography screening. 1 year F/U This examination should not preclude the clinical evaluation of a suspicious palpable abnormality. This patient's information was entered into a reminder system with a target due date for their next mammogram.
[2023-09-18 11:03] LABS: Anion Gap 14 (12-20); Blood Urea Nitrogen 29 mg/dL (9-16); Calcium 10.4 mg/dL (8.4-10.2); Carbon Dioxide 26 mmol/L (22-29); Chloride 105 mmol/L (96-108); Estimated Glomerular Filt Rate 56; Glucose Random 213 mg/dL (60-115); Potassium 4.7 mmol/L (3.3-5.1); Sodium 140 mmol/L (135-145)
== END 2023-09-18 09:19 | disposition home or self-care (01) ==
LOC: HO.MAMMO 09:18
PROVIDERS: Internal Medicine; PCP Nurse Practitioner Primary Care; Visit Provider Nurse Practitioner Primary Care
DX: I25.118 Atherosclerotic heart disease of native coronary artery with other forms of angina pectoris (principal); I50.20 Unspecified systolic (congestive) heart failure; I10 Essential (primary) hypertension; Z12.31 Encounter for screening mammogram for malignant neoplasm of breast
CPT/HCPCS: 36415; 77063; 77067; 80048

== ENCOUNTER → 2023-09-18 13:45 | Outpatient (BNV) | payer OTHER, SELFPAY | PROVIDERS: PCP Nurse Practitioner Primary Care; Visit Provider Radiology Diagnostic Radiology | DX: Z12.31 Encounter for screening mammogram for malignant neoplasm of breast (principal) | CPT/HCPCS: 77063; 77067 ==

== ENCOUNTER 2023-09-21 11:51 | Outpatient (AMB) | payer OTHER, SELFPAY ==
--- NOTE | 2023-09-21 12:28 | MHC.OFFVIS ---
Intake Vital Signs 09/21/23 12:32 Height 5 ft 7 in Weight 206 lb BMI 32.3 BP 130/62 Blood Pressure Location Rt brachial Position Sitting Pulse 72 Pulse Source Pulse Oximeter Pulse Oximetry (%) 96 Oxygen Delivery Method Room Air Intake Visit Reasons: 3 mo f/u for Dymielidating disease - LVM Allergies No Known Allergies Allergy (Verified 09/21/23 12:34) Medication List - Last Reconciled 09/21/23 by Elsie Stephenson MD alpha lipoic acid 300 mg PO BID aspirin 1 tab PO DAILY blood sugar diagnostic (FreeStyle Lite Strips) As directed 3 times a day blood-glucose meter (FreeStyle Lite Meter kit) As directed blood-glucose meter,continuous ([employer] G6 Ip/Mosaic Technician) As directed carvedilol 1 tab PO DAILY empagliflozin (Jardiance) 25 mg PO QAM gabapentin 300 mg PO BEDTIME hydroxyzine HCl 25 mg PO TID PRN insulin aspart U-100 (Novolog FlexPen U-100 Insulin aspart) 30 units subcut DAILY insulin glargine (Lantus Solostar U-100 Insulin) 30 units subcut BEDTIME lancets (FreeStyle Lancets) As directed 3 times a day levothyroxine 137 mcg PO DAILY linaclotide (Linzess) 290 mcg PO QAM 30 days melatonin 1 tab PO BEDTIME PRN metformin ER 1,000 mg PO multivitamin 1 tab PO DAILY multivitamin with folic acid 400 mcg (Daily-Fidelia (with folic acid)) 0 tabs PO omeprazole 40 mg PO DAILY pregabalin 75 mg PO DAILY rosuvastatin 10 mg PO BEDTIME sacubitril-valsartan 97-103 mg (Entresto) 1 tab PO tirzepatide (Mounjaro) 10 mg subcut QWEEK tirzepatide (Mounjaro) 5 mg (0.5 mL) subcut QWEEK HPI HPI Comments History of Present Illness Details 67y/o left handed female with h/o long standing diabetes for over 30 years comes for follow up of neuropathy and restless legs sydnrome. she is doing well on gabapentin and alpha lipoic acid . she reports numbness and tingling in distal lower extremities for over 10 years . 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 she also reports blurry vision neck pain and dizziness lasting 1 hr for past 2 months .she describes dizziness as spinning. she has an appointment with ENT tomorrow. she denies diplopia, tinnitus. she thinks her diabetes is not well controlled now. Her fasting glucose was 180. she still has numbness, squeezing , tingling in bilateral feet worse when she is resting . The symptoms are worse in evening and also wakes her up from sleep. she also reports weakness of her left leg . she also has back pain . No urinary difficulties. she also has mild numbness in her hands now. In 2018 she had fracture of her left foot and has been weak and painful since then . she also has bone spurs.she also reports swelling of his left foot. [facility] Medical History (Updated 09/21/23 @ 12:51 by Elsie Stephenson MD) Vertigo Cervicalgia Restless legs syndrome (RLS) Neuropathy Palpitations CAD (coronary artery disease) Depression High cholesterol Celiac disease HTN (hypertension) Hypothyroid Insulin dependent type 1 diabetes mellitus Surgical History H/O bilateral breast reduction surgery History of carpal tunnel release of both wrists History of section H/O abdominoplasty Hx of colonoscopy History of arthroplasty of left knee H/O heart artery stent Family History Mother Diabetes High blood pressure Father Diabetes High blood pressure Paternal Aunt Bone cancer Sister Breast cancer Sister Lymph node cancer Social History Household Members: None Housing: Apartment Are you a primary home care chaplain to a significant other at home: No Do you presently have visiting nurse or other home services: No Alcohol intake: never Patient Tobacco Use Status: Never used Tobacco service: No Current occupational status: disabled Physical Exam Vital Signs: Last Vital Signs Pulse 72 09/21/23 12:32 BP 130/62 09/21/23 12:32 Pulse Ox 96 09/21/23 12:32 Oxygen Delivery Method Room Air 09/21/23 12:32 BMI result Body Mass Index 32.3 Const General: cooperative, healthy appearing and comfortable Nutritional Appearance: average body habitus Orientation/consciousness: patient oriented x3 Limitations: physical limitations HEENT Head: Yes normal to inspection Eyes Pupils: Equal, round and reactive pupils present Neck Other: restricted range of motion Tightness and tenderness in neck muscles Neuro Other: mild weakness of hand director of counterintelligence guerita Left leg mild swelling and tenderness PP and light touch decreased guerita distal LE - left from mid calf Right from just above ankle. General: patient oriented x3, tone normal and moves all extremities Cranial nerves: Yes Facial sensation intact/muscles of mastication intact, Yes Equal, round and reactive pupils present, Yes Bilaterally intact EOM present, Yes Nystagmus not present, Yes Normal facial strength present and Yes Symmetric palate elevation present Cognition (Neuro): normal cognition Gait exam (Neuro): Antalgic gait present Motor exam (neuro): 5/5 motor strength present throughout and Normal motor muscle tone present throughout Deep tendon reflexes (DTR's): Right triceps reflex intensity grade: 1+, Left triceps reflex intensity grade: 1+, Rt Biceps (C5, C6): 1+, Left biceps reflex intensity grade: 1+, Right brachioradialis reflex intensity grade: 1+, Left brachioradialis reflex intensity grade: 1+, Right patellar reflex intensity grade: 0, Left patellar reflex intensity grade: 0, Right ankle reflex intensity grade: 0 and Left ankle reflex intensity grade: 0 Coordination: [id number] test normal Assessment & Plan Assessment & Plan (1) Neuropathy: Comment: nelli diabetic with component of CRPS in her left foot Code(s): G62.9 - Polyneuropathy, unspecified (2) Restless legs syndrome (RLS): Code(s): G25.81 - Restless legs syndrome (3) Cervicalgia: Code(s): M54.2 - Cervicalgia (4) Vertigo: Comment: cervicogenic Code(s): R42 - Dizziness and giddiness Plan Continue gabapentin 300mg qhs Alpha lipoic acid 300mg bid I will refer her to PT for her neck tightness and will consider vestibular therapy Orders: Orders PT Evaluation and Treatment Today M54.2 - Cervicalgia Coding Level of Care Code Est Pt Level 4 (46863) Diagnoses Neuropathy G62.9 Restless legs syndrome (RLS) G25.81 Cervicalgia M54.2 Vertigo R42
[2023-09-21 12:32] VITALS: BP 130/62; PULSE 72; O2SAT 96; BMI 32.3
== END 2023-09-21 13:01 | disposition home or self-care (01) ==
PROVIDERS: PCP Nurse Practitioner Primary Care; Visit Provider Psychiatry & Neurology Neurology
DX: G62.9 Polyneuropathy, unspecified (principal); G25.81 Restless legs syndrome; M54.2 Cervicalgia; R42 Dizziness and giddiness
CPT/HCPCS: 99214

== ENCOUNTER → 2023-09-21 11:51 | Outpatient (BNVA) | payer OTHER, SELFPAY | PROVIDERS: PCP Nurse Practitioner Primary Care; Visit Provider Psychiatry & Neurology Neurology | DX: G62.9 Polyneuropathy, unspecified (principal); G25.81 Restless legs syndrome; M54.2 Cervicalgia; R42 Dizziness and giddiness | CPT/HCPCS: 99212 ==

== ENCOUNTER → 2023-09-22 13:12 | Outpatient (BNVA) | payer OTHER, SELFPAY | PROVIDERS: PCP Nurse Practitioner Primary Care; Visit Provider Nurse Practitioner ==

== ENCOUNTER 2023-09-23 11:13 | Outpatient (AMB) | payer OTHER, SELFPAY ==
[2023-09-23 11:13] VITALS: BP 120/62; PULSE 96; BMI 32.5
--- NOTE | 2023-09-23 11:13 | A.OFFVIS_ITS ---
Intake Vital Signs 09/23/23 11:13 Height 5 ft 7 in Weight 207 lb 7.28 oz BMI 32.5 BP 120/62 Blood Pressure Location Lt brachial Position Sitting Pulse 96 Pulse Source Pulse Oximeter Intake Visit Reasons: dm Intake Note: Patient presents today to follow up on D2MT. Last Diabetic Eye exam: 09/2022 Last Podiatry Visit: None Random Glucose: 162 mg/dl HgA1C: 7.7% Location Director Required: Yes Location Director Language: Long Winder Tender Name: [facility] medical staff Information Interpreted: non-clinical & clinical Accompanied by: Self / Same As Patient Allergies No Known Allergies Allergy (Verified 09/23/23 11:20) Medication List - Last Reconciled 09/23/23 by Antoine Cho MD alpha lipoic acid 300 mg PO BID aspirin 1 tab PO DAILY blood sugar diagnostic (FreeStyle Lite Strips) As directed 3 times a day blood-glucose meter (FreeStyle Lite Meter kit) As directed blood-glucose meter,continuous ([employer] G6 Doctor Of Nurse Anesthesia) As directed carvedilol 1 tab PO DAILY empagliflozin (Jardiance) 25 mg PO QAM gabapentin 300 mg PO BEDTIME hydroxyzine HCl 25 mg PO TID PRN insulin aspart U-100 (Novolog FlexPen U-100 Insulin aspart) 30 units subcut DAILY insulin glargine (Lantus Solostar U-100 Insulin) 30 units subcut BEDTIME lancets (FreeStyle Lancets) As directed 3 times a day levothyroxine 137 mcg PO DAILY linaclotide (Linzess) 290 mcg PO QAM 30 days melatonin 1 tab PO BEDTIME PRN metformin ER 1,000 mg PO multivitamin 1 tab PO DAILY multivitamin with folic acid 400 mcg (Daily-Fidelia (with folic acid)) 0 tabs PO omeprazole 40 mg PO DAILY pregabalin 75 mg PO DAILY rosuvastatin 10 mg PO BEDTIME sacubitril-valsartan 97-103 mg (Entresto) 1 tab PO tirzepatide (Mounjaro) 10 mg subcut QWEEK tirzepatide (Mounjaro) 5 mg (0.5 mL) subcut QWEEK HPI HPI Comments History of Present Illness Details 67 YO F who is seen in consultation for T2DM at the request of PCP. Initially diagnosed with T2DM in 20 yrs . Was initially started on treatment with metformin 1000 mg BID . Current regimen metformin 1000 mg BID Lantus 30 units Novolog 30 units premeals . Mounjaro 5 mg Qwkly Jardiance 25 mg QD Dexcom download shows she is using the sensor 93% of the time. Average gluco se is 186 with G mi of 7.8% and standard deviation of 51. 52% range with 47% hyperglycemia and less than 1% hypoglycemia. Patent shows elevation of point of care post breakfast we continued elevation throughout the day Reports low sugars 2 X wk . Feels sx weakness Treats lows with diabetic shakes . Checks sugar after to ensure it is rising. Treats and checks 1 hr after correction . Family history of T2DM in brothers and sisters . Has eyes checked yearly, last eye exam 09/2022 has appt 11/2023 , has retinopathy. has neuropathy, sees podiatry. Denies nephropathy, on SAROJ/ARB. . Has HLD, on statin. Has CAD. Not Had diabetes education. [facility] Medical History (Updated 09/21/23 @ 12:51 by Elsie Stephenson MD) Vertigo Cervicalgia Restless legs syndrome (RLS) Neuropathy Palpitations CAD (coronary artery disease) Depression High cholesterol Celiac disease HTN (hypertension) Hypothyroid Insulin dependent type 1 diabetes mellitus Surgical History H/O bilateral breast reduction surgery History of carpal tunnel release of both wrists History of section H/O abdominoplasty Hx of colonoscopy History of arthroplasty of left knee H/O heart artery stent Family History Mother Diabetes High blood pressure Father Diabetes High blood pressure Paternal Aunt Bone cancer Sister Breast cancer Sister Lymph node cancer Social History Household Members: None Housing: Apartment Are you a primary child caregiver private home to a significant other at home: No Do you presently have visiting nurse or other home services: No Alcohol intake: never Patient Tobacco Use Status: Never used Tobacco service: No Current occupational status: disabled Physical Exam Absence of Cushingoid features. Absence of acromegalic features. Neck exam reve als nl size thyroid about 15 gms. No thyroid nodules palpable. No carotid bruits present. Lungs CTA. Heart S1 S2, Reg R/R. No M/R/ G. Skin exam reveals absence of vitiligo or acanthosis nigricans. Abdominal exam reveals Soft NT/ND with NA BS. No organomegaly present. Neck Other: . Extrem Other: Visual exam of foot performed.R third toe with scaled lesion followed by podiatry . No open lesions. No onchomycosis, no callouses.Pulses 2 + distally Sensation decreased to monofilament exam. Vibratory sensation sensed is decreased with 128 Hz tuning fork Results AMB Hemoglobin A1c AMB Hemoglobin A1c 7.7 % Last Edit by Kayli Gomez on 09/23/23 11:37 Assessment & Plan Assessment & Plan (1) Type 2 diabetes mellitus: Code(s): E11.9 - Type 2 diabetes mellitus without complications Plan: This is a 67-year-old female with a history of type 2 diabetes being treated metformin,Mounjaro and basal-bolus insulin with glycemic control and known macrovascular and microvascular complications namely CAD and neuropathy Plan is to increase the Mounjaro to 7.5 mg Qwkly . We also talked about dietary modification for breakfast I supplied her with a sample Glucerna shakes in lieu of oatmeal and t other high carbohydrate meals. I asked her to report any hypoglycemia for adjustment of insulin. To also follow up with the applications support specialist Orders: Orders AMB Hemoglobin A1c Today E11.9 - Type 2 diabetes mellitus without complications Medications: New tirzepatide (Mounjaro) 7.5 mg (0.5 mL) subcut QWEEK 2 mL 5RF Discontinued tirzepatide (Mounjaro) Discontinued Reason: Doctor's Order 5 mg (0.5 mL) subcut QWEEK 2 mL 4RF Coding Level of Care Code Est Pt Level 4 (62349) Diagnoses Type 2 diabetes mellitus E11.9
[2023-09-23 11:29] LABS: Glucose, Whole Blood 162 mg/dL (60-115)
== END 2023-09-23 12:01 | disposition home or self-care (01) ==
PROVIDERS: PCP Nurse Practitioner Primary Care; Visit Provider Internal Medicine Endocrinology, Diabetes & Metabolism
DX: E11.9 Type 2 diabetes mellitus without complications (principal)
CPT/HCPCS: 99214

== ENCOUNTER → 2023-09-23 11:13 | Outpatient (BNVA) | payer OTHER, SELFPAY | PROVIDERS: PCP Nurse Practitioner Primary Care; Visit Provider Internal Medicine Endocrinology, Diabetes & Metabolism | DX: E11.9 Type 2 diabetes mellitus without complications (principal) | CPT/HCPCS: 82947; 83036; 99212 ==

== ENCOUNTER 2023-09-25 09:14 | Outpatient (REF) | payer OTHER, SELFPAY ==
--- NOTE | ~2023-09-25 | XR_ITS ---
EXAMINATION: XR SINUSES CLINICAL INFORMATION: Sinusitis COMPARISON: None available. TECHNIQUE: Rincon, Feldman, lateral, and SMV FINDINGS: Paranasal sinuses appear clear without air-fluid levels. No fractures are identified. No radiodense foreign bodies. Nasal septum is midline. Bilateral bony orbits are intact. XR/XR sinus min 3V IMPRESSION: Unremarkable examination.
== END 2023-09-25 09:15 | disposition home or self-care (01) ==
LOC: HO.XRAY 09:14
PROVIDERS: PCP Nurse Practitioner Primary Care; Visit Provider Otolaryngology
DX: J32.9 Chronic sinusitis, unspecified (principal)
CPT/HCPCS: 70220

== ENCOUNTER 2023-10-13 09:24 | Outpatient (REF) | payer OTHER, SELFPAY ==
[2023-10-16 09:13] LABS: TS Negative Control Passed; TS Panel A 0; TS Panel B 0; TS Positive Control Passed; TSpotTB Negative (Negative)
== END 2023-10-13 09:25 | disposition home or self-care (01) ==
LOC: HO.LAB 09:24
PROVIDERS: PCP Nurse Practitioner Primary Care; Visit Provider Nurse Practitioner Primary Care
DX: Z11.1 Encounter for screening for respiratory tuberculosis (principal)
CPT/HCPCS: 36415; 86481

== ENCOUNTER 2023-10-20 12:07 | Outpatient (REF) | payer OTHER, SELFPAY ==
--- NOTE | ~2023-10-20 | US_ITS ---
EXAMINATION: US PELVIS COMPLETE TRANSVAGINAL PELVIC ULTRASOUND: CLINICAL INFORMATION: Fibroids, postmenopausal bleeding. COMPARISON: None TECHNIQUE: Transabdominal imaging initially performed. For more definitive evaluation of the endometrium and nonvisualization bilateral ovaries, transvaginal technique was employed. FINDINGS: Uterus is anteverted measuring 8.5 x 4.4 x 5.8cm. Fibroids are seen. Larger measuring 1.2 x 1.0 x 1.6 cm, previously 1.2 x 1.2 x 1.7 cm. 2.4 cm fibroid seen on previous study is no longer identified. Newly recognized 0.7 x 0.8 x 0.7 cm fibroid now seen. Endometrium is abnormally thickened, heterogeneous and irregular measuring 1.8 cm. Feeding vessels is demonstrated on vascular imaging. Right ovary measures 2.7 x 1.3 x 1.5 cm for a volume of 2.8 mL. Previous measurement was 2.1 x 1.8. The left ovary measures 2.7 x 1.4 x 1.5 cm for a volume of 3.0 mL. Previous measurement was 2.5 x 1.9 x 2.6. There is small amount of pelvic simple appearing free fluid. US/US pelvic and transvaginal IMPRESSION: Thickened, heterogeneous irregular endometrium with feeding vessel. Fibroid uterus.
== END 2023-10-20 12:08 | disposition home or self-care (01) ==
LOC: HO.US 12:07
PROVIDERS: PCP Nurse Practitioner Primary Care; Visit Provider Advanced Practice Midwife
DX: D21.9 Benign neoplasm of connective and other soft tissue, unspecified (principal); N95.0 Postmenopausal bleeding
CPT/HCPCS: 76830; 76856

== ENCOUNTER 2023-10-22 10:00 | Outpatient (RCR) | payer OTHER, SELFPAY ==
--- NOTE | 2023-09-29 10:34 | MHC.PT.EP ---
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 Emirati speaking female who is referred to PT by Kristopher Olivares PA-C with Dx of LEFT shoulder osteoarthritis and OA of ACJ. PT diagnosis is LEFT shoulder OA (acromion spur seen on imaging) and subacromial impingement syndrome. Patient impairments include poor posture, pain, limited ROM of shoulders and neck, weakness in shoulders. Patient current functional limitations are reaching behind her back , putting on clothes, reaching overhead, brush her hair, lift/carry groceries. Patient will benefit from skilled PT to address aforementioned impairments and functional limitations to meet established goals. Frequency and Duration: The patient will be seen 2x/week for 4 weeks Short Term Goals: 2 weeks Patient demonstrates consistency and independence with HEP to self manage symptoms. Linen Supervisor Goals: 4 weeks Patient presents with increased bilateral shoulder flexion 155 degrees to be able to reach overhead to wash/dry hair. Patient has improved SPADI questionnaire by at least 12% in order to demonstrate improved function. Treatment Plan: Modalities to reduce pain, spasms and effusion. Manual therapy to restore motion and function. Therapeutic exercise to improve strength and flexibility. Neuromuscular re-education for posture and balance. Therapeutic activities to return to functional activities of daily living. Electronically signed by: Tara Bergman, PT, DPT Please sign and return to therapist. Thank you for your referral.
[2023-10-09 09:25] LABS: BV Int Neg Control Negative (Negative); BV Int Pos Control Positive (Positive)
--- NOTE | 2023-10-23 09:13 | MHC.PT.DC ---
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 She has shown consistency with HEP that has improved her posture, but remains with some muscle imbalances with UT/LS area and neck in which she is seeking PT for to begin next week. She is discharged for PT at this time for treatment of her shoulder. Electronically signed by: Tara Bergman, PT, DPT Please sign and return to therapist. Thank you for your referral.
== END 2023-10-23 09:14 | disposition home or self-care (01) ==
LOC: HO.PT 10:00
PROVIDERS: Advanced Practice Midwife; PCP Nurse Practitioner Primary Care; Visit Provider Physician Assistant
DX: M19.012 Primary osteoarthritis, left shoulder (principal)
CPT/HCPCS: 87480; 87510; 87660; 97110; 97140; 97162

== ENCOUNTER 2023-10-26 09:45 | Outpatient (REF) | payer OTHER, SELFPAY ==
[2023-10-26 12:35] LABS: Microalbum/Creatinine Ratio Ur 80.3 ug/mg cr (<30)
[2023-10-26 12:36] LABS: Cholesterol 132 mg/dL (<200); HDL Cholesterol 42 mg/dL (>40); LDL Cholesterol Calculated 64 mg/dL (<100); Triglycerides 130 mg/dL (<150)
== END 2023-10-26 09:46 | disposition home or self-care (01) ==
LOC: HO.HHCL 09:45
PROVIDERS: Visit Provider Nurse Practitioner Primary Care
DX: E11.42 Type 2 diabetes mellitus with diabetic polyneuropathy (principal); N95.0 Postmenopausal bleeding; D25.9 Leiomyoma of uterus, unspecified
CPT/HCPCS: 36415; 80061; 82043; 82570; 99212

== ENCOUNTER 2023-10-26 11:28 | Outpatient (AMB) | payer OTHER, SELFPAY ==
--- NOTE | 2023-10-26 11:36 | MHC.OFFVIS ---
Intake Vital Signs 10/26/23 11:40 Height 5 ft 7 in Weight 204 lb BMI 31.9 BP 126/60 Intake Visit Reasons: PMB/per Intake Note: Had some bleeding in september Telephone Order Clerk Room Service Required: Yes Telephone Order Clerk Room Service Language: Trench Shovel Operator Name: Damien [id number] Information Interpreted: non-clinical & clinical Chief Dispatcher: Chief Dispatcher Present (Meryl) Allergies No Known Allergies Allergy (Verified 10/26/23 11:43) Is last menstrual period known: Yes Last menstrual period: 07/12/20 Post menopausal: No Patient : No Do you need a note to return to daycare/school/sports/work: Yes (for surgery on thursday) HPI HPI Comments History of Present Illness Details Presenting referred from [facility] for postmenopausal bleeding. Pelvic ultrasound in 11/07 showed the following: Uterus is anteverted measuring 8.5 x 4.4 x 5.8cm. Fibroids are seen. Larger measuring 1.2 x 1.0 x 1.6 cm, previously 1.2 x 1.2 x 1.7 cm. 2.4 cm fibroid seen on previous study is no longer identified. Newly recognized 0.7 x 0.8 x 0.7 cm fibroid now seen. Endometrium is abnormally thickened, heterogeneous and irregular measuring 1.8 cm. Feeding vessels is demonstrated on vascular imaging. Right ovary measures 2.7 x 1.3 x 1.5 cm for a volume of 2.8 mL. Previous measurement was 2.1 x 1.8. The left ovary measures 2.7 x 1.4 x 1.5 cm for a volume of 3.0 mL. Previous measurement was 2.5 x 1.9 x 2.6. There is small amount of pelvic simple appearing free fluid Last mammogram in 10/07 was BI-RADS 2 Last co testing in 12/03 was negative [facility] Medical History Vertigo Cervicalgia Restless legs syndrome (RLS) Neuropathy Palpitations CAD (coronary artery disease) Depression High cholesterol Celiac disease HTN (hypertension) Hypothyroid Insulin dependent type 1 diabetes mellitus Surgical History H/O bilateral breast reduction surgery History of carpal tunnel release of both wrists History of section H/O abdominoplasty Hx of colonoscopy History of arthroplasty of left knee H/O heart artery stent Family History Mother Diabetes High blood pressure Father Diabetes High blood pressure Paternal Aunt Bone cancer Sister Breast cancer Sister Lymph node cancer Social History Household Members: None Housing: Apartment Are you a primary residential care facility manager to a significant other at home: No Do you presently have visiting nurse or other home services: No Alcohol intake: never Patient Tobacco Use Status: Never used Tobacco service: No Current occupational status: disabled Female Reproductive History Menstrual Date of last menstrual period: 07/12/20 Total pregnancies: 2 Full term: 2 Review of Systems Card Reports as per HPI and Reports no additional complaints Resp Reports as per HPI and Reports no additional complaints GI Reports as per HPI and Reports no additional complaints Reports as per HPI Physical Exam Const General: cooperative, healthy appearing and comfortable Resp Effort & Inspection: normal respiratory effort Auscultation: clear to auscultation bilaterally Percussion: percussion normal Cardio Palpation: normal PMI Rate: regular rate Rhythm: regular rhythm Heart sounds: no murmurs and no rubs Peripheral pulses: Peripheral pulses 2+ throughout GI Inspection: Yes normal to inspection Palpation (GI): Soft to palpation, nontender, no guarding, not rigid and No hepatosplenomegaly present Percussion: Yes normal to percussion Auscultation: normal bowel sounds Rectal Exam - Female: deferred Speculum Exam - Vagina: normal appearance of the vagina Speculum Exam - Cervix: normal appearance of the cervix Bimanual exam- vagina & uterus: normal bimanual exam and uterine size normal Bimanual Exam- Adnexa, other: normal adnexae Assessment & Plan Assessment & Plan (1) Postmenopausal bleeding: Comment: Abnormal thickened endometrium with feeding vessels Code(s): N95.0 - Postmenopausal bleeding Plan: Discussed with the patient the pelvic ultrasound findings, the endometrial stripe thickenss measured by ultrasound was more than 4mm with feeding vessel. The negative predictive value, positive predictive value, Sensitivity, specificity of using ultrasound measurement of endometrial stripe to detecting endometrial pathology including hyperplasia , polyp or cancer were discussed with the patient. Recommended to the patient that the next step is an endometrial sampling via hysteroscopy D&C possible polypectomy versus endometrial biopsy to r/o endometrial pathology including hyperplasia or cancer. All the pros and cons risks and benefits of each approach were discussed with the patient, endometrial biopsy being less invasive, office procedure with less sensitivity and inability diagnose a polyp and removal versus hysteroscopy done under anesthesia more invasive more sensitive to endometrial cancer and possibility of diagnosing and endometrial polyp with the possibility of polypectomy. All questions were answered pt verbalized understanding and decided to proceed with hysteroscopy D&C possible polypectomy/myomectomy. Discussed with the patient the procedure , all benefits and risks including but not limited to inability to complete the procedure , insufficient endometrial tissue for a complete evaluation of the endometrial cavity , bleeding, infection, possible need for blood transfusion with all its risk ( HIV,syphilis, Hepatitis, anaphylaxis shock, others..), injury to bladder, rectum, possible need for laparoscopy/laparotomy or hysterectomy. The patient verbalized understanding and signed the consent. Instructions given the patient to schedule a 2 week postoperative appointment (2) Uterine myoma: Code(s): D25.9 - Leiomyoma of uterus, unspecified Plan: Discussed with the patient the findings on pelvic ultrasound & the risk of myosarcoma; discussed with the patient the options of treatment including expectant management versus hysterectomy; the pros and cons, risks benefits of each approach were discussed with the patient including the fact that in cases of myosarcoma, surgical treatment can lead to early diagnosis and positively affects the prognosis; after further discussion, the patient decided to proceed with expectant management. Will repeat pelvic ultrasound in 3. Instructions given to patient to call in case any of the following occurs: pressure symptoms, abnormal uterine bleeding, pelvic pain; and to schedule an office follow-up appointment in 3 months. All questions answered, the patient verbalized understanding and agreed with the plan . Orders: Orders US pelvic and transvaginal 3 Months D25.9 - Leiomyoma of uterus, unspecified Coding Level of Care Code Est Pt Level 3 (39028) Diagnoses Postmenopausal bleeding N95.0 Uterine myoma D25.9
[2023-10-26 11:40] VITALS: BP 126/60; BMI 31.9
== END 2023-10-26 12:40 | disposition home or self-care (01) ==
LOC: HO.HWS 11:28
PROVIDERS: PCP Nurse Practitioner Primary Care; Visit Provider Obstetrics & Gynecology
DX: N95.0 Postmenopausal bleeding (principal); D25.9 Leiomyoma of uterus, unspecified
CPT/HCPCS: 99213

== ENCOUNTER 2023-11-19 12:18 | Outpatient (AMB) | payer OTHER, SELFPAY ==
--- NOTE | 2023-11-19 11:38 | A.OFFVIS_ITS ---
Intake Intake Visit Reasons: 30 min Allergies No Known Allergies Allergy (Verified 10/26/23 11:43) HPI Comprehensive Diabetes Asmnt Most Recent Diabetes Results: Microalb/Creat Ratio 80.3 ug/mg cr (<30) H 10/26/23 Cholesterol 132 mg/dL (<200) 10/26/23 HDL Cholesterol 42 mg/dL (>40) 10/26/23 Triglycerides 130 mg/dL (<150) 10/26/23 Creatinine 0.99 mg/dL (0.5-1.4) 09/18/23 Blood Urea Nitrogen 29 mg/dL (9-16) H 09/18/23 Sodium 140 mmol/L (135-145) 09/18/23 Potassium 4.7 mmol/L (3.3-5.1) 09/18/23 Chloride 105 mmol/L (96-108) 09/18/23 Carbon Dioxide 26 mmol/L (22-29) 09/18/23 Calcium 10.4 mg/dL (8.4-10.2) H 09/18/23 AST 21 U/L (5-31) 05/15/23 ALT 22 U/L (0-31) 05/15/23 Total Protein 7.8 g/dL (6.5-8.0) 05/15/23 Albumin 4.2 g/dL (3.5-5.0) 05/15/23 [facility] Medical History Vertigo Cervicalgia Restless legs syndrome (RLS) Neuropathy Palpitations CAD (coronary artery disease) Depression High cholesterol Celiac disease HTN (hypertension) Hypothyroid Insulin dependent type 1 diabetes mellitus Surgical History H/O bilateral breast reduction surgery History of carpal tunnel release of both wrists History of section H/O abdominoplasty Hx of colonoscopy History of arthroplasty of left knee H/O heart artery stent Family History Mother Diabetes High blood pressure Father Diabetes High blood pressure Paternal Aunt Bone cancer Sister Breast cancer Sister Lymph node cancer Social History Household Members: None Housing: Apartment Are you a primary child care lead teacher to a significant other at home: No Do you presently have visiting nurse or other home services: No Alcohol intake: never Patient Tobacco Use Status: Never used Tobacco service: No Current occupational status: disabled Assessment & Plan Assessment & Plan (1) Type 2 diabetes mellitus: Code(s): E11.9 - Type 2 diabetes mellitus without complications Plan: Learning objectives: The patient was provided with verbal and written education on the following topics as outlined below. The patient met all learning objectives and was able to verbalize understanding and provide teach back of education topics discussed . The patient was provided with the opportunity to ask questions and all questions were answered. Patient Assessment Assess patient education level/literacy/barriers Patient questions/concerns, patient has been using Dexcom G7 approximately 2 months Patient is taking Lantus 30 units daily NovoLog 30 units before meals Patient reports that sometimes if she is out she does not take NovoLog until she gets home after eating. Reviewed with patient insulin actions Overnight patient's glucose is well within target, patient seems to be experiencing some postprandial hyperglycemia. Patient is taking Mounjaro 7 mg weekly instead of recommending change to insulin message sent to Dr. Cho to see if it would be appropriate to increase to next Mounjaro dose of 10 mg What is Diabetes? Pathophysiology How the body produces and uses insulin Identify type of DM Risk factors Signs of Diabetes Brief overview of Diabetes Management Monitoring blood sugar Following a meal plan Regular exercise Maintaining a healthy weight Taking medication as needed Members of the care team (PCP, RN, MA, RD, CDE, franchise consultant) Blood glucose monitoring When/how often to test Target blood sugar ranges Average glucose for the past 2 weeks 169 mg/dL Patient above target 35% Patient at target 64% Patient below target 1% Introduction to Nutrition Importance of healthy diet in managing DM Diet is personalized to individual preference Review patient?s regular diet/food preferences Who prepares meals/does food shopping/ Dining out?/ Barriers? How diet effects glucose Eating 3 balanced meals a day with small, healthy snacks between meals Review food groups Carbohydrates: What is a carbohydrate/Which food/food groups are considered carbohydrates Effect of carbohydrates on blood glucose Portion sizes Reading food labels Basic carb counting (if applicable per nursing assessment) Plate method Meal planning Recommendations: Follow plate method, consistent carbs and read nutritional labels. Smart Goal: Patient will increase Mounjaro dose from 7.5 mg to 10 mg weekly Educational Materials: The patient was provided with the following written educational materials: Planning Healthy Meals, rule of 15s Handouts in [place] Patient Response to instructions: Comprehension of Instructions: Fair Readiness to make changes: Contemplation How confident they feel about making changes: Positive \ Medications: Discontinued tirzepatide (Mounjaro) Discontinued Reason: Doctor's Order 7.5 mg (0.5 mL) subcut QWEEK 2 mL 5RF Patient Instructions: Incluir actividad diaria regular. ADA recomienda 30 minutos de ejercicio 5 d?as a la semana. P?rdida de peso, hable con el PCP o el cardi?logo antes de comenzar un nuevo plan. Mida el nivel de az?car en la marshal seg?n las indicaciones; Ayuno y comida m?s lito de 2hpp. Observe las tendencias en los resultados. Utilice los resultados y eval?e c?mo los alimentos, la actividad f?michele y los medicamentos afectan los resultados de az?car en la marshal. Lleve el gluc?metro o CGM a la pr?xima visita. Conocer los medicamentos para la diabetes, alfred acci?n, los efectos secundarios, la eficacia, la toxicidad, la dosis prescrita, el momento y la frecuencia de administraci?n apropiados, el efecto de las dosis olvidadas y retrasadas y las instrucciones de almacenamiento, viaje y seguridad. T?cnicas de resoluci?n de problemas para el seguimiento de episodios de hipo/hiperglucemia y tratamientos. Reducir los comportamientos de reducci?n de riesgos, dejar de fumar, ex?menes regulares de ojos, pies y dentales. Coding Level of Care Code Est Pt Level 1 (14282) Diagnoses Type 2 diabetes mellitus E11.9
== END 2023-11-19 13:05 | disposition home or self-care (01) ==
PROVIDERS: PCP Nurse Practitioner Primary Care; Visit Provider Registered Nurse Diabetes Educator
DX: E11.9 Type 2 diabetes mellitus without complications (principal)

== ENCOUNTER → 2023-11-19 12:18 | Outpatient (BNVA) | payer OTHER, SELFPAY | PROVIDERS: PCP Nurse Practitioner Primary Care; Visit Provider Registered Nurse Diabetes Educator | DX: E11.9 Type 2 diabetes mellitus without complications (principal); Z79.4 Long term (current) use of insulin | CPT/HCPCS: 99211 ==

== ENCOUNTER 2023-12-01 07:52 | Outpatient (AMB) | payer OTHER, SELFPAY ==
--- NOTE | 2023-12-01 08:08 | A.OFFVIS_ITS ---
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 Patient doesn't use her machine because she has a chronic cough and would like a alternative. Allergies No Known Allergies Allergy (Verified 12/01/23 08:13) HPI HPI Comments History of Present Illness Details 65 y/o female patient presents for new i n-person visit to manage sleep apnea. Pt reports she was diagnosed with sleep apnea last year. No sleep study result available now. She was on APAP at [id number]. She did not tolerate the CPAP pressure, had difficulty sleeping and constant cough with it. The CPAP compliance and therapy response (03/17/23-06/14/23) reviewed. The usage days 66% and the average usage hours 1 hrs 55 min. The max pressure was 15.1 and the residual AHI was 16.5/hr. She snores loudly, and has gasping arousals, chest tightness when she sleep. Pt reports non refreshing sleep, feels tired during daytime. She lost about 15 lb over the last 6 months. [facility] Medical History Vertigo Cervicalgia Restless legs syndrome (RLS) Neuropathy Palpitations CAD (coronary artery disease) Depression High cholesterol Celiac disease HTN (hypertension) Hypothyroid Insulin dependent type 1 diabetes mellitus Surgical History H/O bilateral breast reduction surgery History of carpal tunnel release of both wrists History of section H/O abdominoplasty Hx of colonoscopy History of arthroplasty of left knee H/O heart artery stent Family History Mother Diabetes High blood pressure Father Diabetes High blood pressure Paternal Aunt Bone cancer Sister Breast cancer Sister Lymph node cancer Social History Household Members: None Housing: Apartment Are you a primary senior care manager to a significant other at home: No Do you presently have visiting nurse or other home services: No Alcohol intake: never Patient Tobacco Use Status: Never used Tobacco service: No Current occupational status: disabled Review of Systems Const All systems reviewed & are unremarkable except as noted in HPI and below Physical Exam Vital Signs: Last Vital Signs Pulse 69 12/01/23 08:14 BP 112/60 12/01/23 08:14 Pulse Ox 97 12/01/23 08:14 Oxygen Delivery Method Room Air 12/01/23 08:14 BMI result Body Mass Index 31.4 Const General: cooperative Nutritional Appearance: average body habitus Orientation/consciousness: patient oriented x3 Neck Neck: Yes full ROM and Yes supple Resp Effort & Inspection: normal respiratory effort and able to speak in complete sentences Neuro General: patient oriented x3, gait normal and moves all extremities Cranial nerves: Yes CN's II-XII intact bilaterally Cognition (Neuro): normal cognition Gait exam (Neuro): Normal gait present Motor exam (neuro): 5/5 motor strength present throughout Psych Appearance: grossly normal Mental Status: mental status grossly normal Speech and movement: Normal speech and movement present Affect: normal affect Attitude: cooperative Assessment & Plan Assessment & Plan (1) JEVON (obstructive sleep apnea): Code(s): G47.33 - Obstructive sleep apnea (adult) (pediatric) Plan Pt is on APAP at [id number], but she does not tolerate and the current setting does not treat her sleep apnea well. Advised patient to undergo in lab CPAP titration study to find optimal CPAP pressure. Wt reduction adivsed. Orders: Orders RT PSG in-lab sleep titration Today Coding Level of Care Code New Pt Level 3 (09729) Diagnoses JEVON (obstructive sleep apnea) G47.33
[2023-12-01 08:14] VITALS: BP 112/60; PULSE 69; O2SAT 97; BMI 31.4
== END 2023-12-01 08:45 | disposition home or self-care (01) ==
PROVIDERS: PCP Nurse Practitioner Primary Care; Visit Provider Nurse Practitioner Family
DX: G47.33 Obstructive sleep apnea (adult) (pediatric) (principal)
CPT/HCPCS: 99203

== ENCOUNTER → 2023-12-01 07:52 | Outpatient (BNVA) | payer OTHER, SELFPAY | PROVIDERS: PCP Nurse Practitioner Primary Care; Visit Provider Nurse Practitioner Family | DX: G47.33 Obstructive sleep apnea (adult) (pediatric) (principal) | CPT/HCPCS: 99202 ==

== ENCOUNTER 2023-12-03 12:27 | Outpatient (AMB) | payer OTHER, SELFPAY ==
--- NOTE | 2023-12-03 12:47 | MHC.AMDMED ---
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 Language: Desulfurizer Operator Name: Bam Information Interpreted: non-clinical & clinical Accompanied by: Self / Same As Patient Allergies No Known Allergies Allergy (Verified 12/01/23 08:13) HPI Comprehensive Diabetes Asmnt Most Recent Diabetes Results: Microalb/Creat Ratio 80.3 ug/mg cr (<30) H 10/26/23 Cholesterol 132 mg/dL (<200) 10/26/23 HDL Cholesterol 42 mg/dL (>40) 10/26/23 Triglycerides 130 mg/dL (<150) 10/26/23 Creatinine 0.99 mg/dL (0.5-1.4) 09/18/23 Blood Urea Nitrogen 29 mg/dL (9-16) H 09/18/23 Sodium 140 mmol/L (135-145) 09/18/23 Potassium 4.7 mmol/L (3.3-5.1) 09/18/23 Chloride 105 mmol/L (96-108) 09/18/23 Carbon Dioxide 26 mmol/L (22-29) 09/18/23 Calcium 10.4 mg/dL (8.4-10.2) H 09/18/23 AST 21 U/L (5-31) 05/15/23 ALT 22 U/L (0-31) 05/15/23 Total Protein 7.8 g/dL (6.5-8.0) 05/15/23 Albumin 4.2 g/dL (3.5-5.0) 05/15/23 [facility] Medical History Vertigo Cervicalgia Restless legs syndrome (RLS) Neuropathy Palpitations CAD (coronary artery disease) Depression High cholesterol Celiac disease HTN (hypertension) Hypothyroid Insulin dependent type 1 diabetes mellitus Surgical History H/O bilateral breast reduction surgery History of carpal tunnel release of both wrists History of section H/O abdominoplasty Hx of colonoscopy History of arthroplasty of left knee H/O heart artery stent Family History Mother Diabetes High blood pressure Father Diabetes High blood pressure Paternal Aunt Bone cancer Sister Breast cancer Sister Lymph node cancer Social History (Reviewed 12/01/23 @ 08:14 by Bozena Moses [facility]) Household Members: None Housing: Apartment Are you a primary insurance healthcare consultant to a significant other at home: No Do you presently have visiting nurse or other home services: No Alcohol intake: never Patient Tobacco Use Status: Never used Tobacco service: No Current occupational status: disabled Assessment & Plan Assessment & Plan (1) Type 2 diabetes mellitus: Code(s): E11.9 - Type 2 diabetes mellitus without complications Plan: Personal Continuous Glucose Monitor: Patients CGM information reviewed Reviewed patient's sensor data: Hypoglycemia: ? 0% Hyperglycemia:?40% Time in Range:? 60% Average glucose for the last 2 weeks?172 mg/dL Patient did not have the opportunity to increase Mounjaro dose to 10 mg She is currently experiencing postprandial hyperglycemia similar to last visit Patient reports she has some medical procedures coming including ultrasound of her heart, in preparation for hysterectomy Patient has follow-up appointment with Dr. Cho in January 2024, recommended patient follow-up with telehealth nurse educator 1 month after appointment with provider If she has questions or concerns or feels she needs to move Education appointment she can call clinic Reviewed how to interpret trend arrows Reminded patient that to check finger sticks if symptoms do not match sensor reading. Discussed lag time between finger stick and sensor data.? Patient able to insert sensor independently at home without issue.? Coding Level of Care Code Est Pt Level 1 (59399) Diagnoses Type 2 diabetes mellitus E11.9
== END 2023-12-03 13:14 | disposition home or self-care (01) ==
PROVIDERS: PCP Nurse Practitioner Primary Care; Visit Provider Registered Nurse Diabetes Educator
DX: E11.9 Type 2 diabetes mellitus without complications (principal)

== ENCOUNTER → 2023-12-03 12:27 | Outpatient (BNVA) | payer OTHER, SELFPAY | PROVIDERS: PCP Nurse Practitioner Primary Care; Visit Provider Registered Nurse Diabetes Educator | DX: E11.9 Type 2 diabetes mellitus without complications (principal); Z71.89 Other specified counseling | CPT/HCPCS: 99211 ==

== ENCOUNTER 2023-12-18 09:00 | Outpatient (RCR) | payer OTHER, SELFPAY ==
--- NOTE | 2023-11-03 10:59 | MHC.PT.EP ---
[facility] [place] Office [place] Office [place] Office [address] [phone] F: [phone] F: [phone] F: [phone] F: [phone] Physical Therapy Plan of Care Date of Evaluation: 10/29/23 Date of Surgery: Diagnosis: cervicalgia Assessment: Pt is a 68yo female who presents for chronic neck pain, which are associated with headaches. Pt also noted to have associated dizziness and avoids turning her head due to vertigo symptoms. Pt is motivated to participate and is in agreement with POC. Frequency and Duration: The patient will be seen 2x/week, x 4 weeks Short Term Goals: 1. Improve her ability to complete chin tuck to neutral in sitting, and supine. 2. In 2 weeks, patient will improve L cervical rotation 10 degrees. Fci Goals: 1. Pt will report reduced frequency of COLEMAN's by 50%. 2. Pt will be able to achieve neutral cervical retraction in sitting and standing. Treatment Plan: Modalities to reduce pain, spasms and effusion. Manual therapy to restore motion and function. Therapeutic exercise to improve strength and flexibility. Neuromuscular re-education for posture and balance. Therapeutic activities to return to functional activities of daily living. Electronically signed by: Jenna Hernandez PT, DPT Please sign and return to therapist. Thank you for your referral.
--- NOTE | 2024-07-11 12:38 | MHC.PT.DC ---
[facility] [place] [facility] [place] [facility] [place] Office [address] Ana Herman [address] [phone] F: [phone] F: [phone] F: [phone] F: [phone] Physical Therapy Discharge Report Diagnosis: cervicalgia Date of Surgery: Date of Evaluation: 10/29/23 Date of Discharge: 12/18/23 Treatments to Date: 8 Cancellations to Date: No Shows to Date: Discharge Status: Achieved Goals Improved Function Independent with HEP Discharge Summary: Pt is a 68yo female who presents with chronic neck pain and some headaches. PT indicated to help her learn improved postural control, teach ex for periscap and deep neck flexor strengthening, reduce frequency and intensity of COLEMAN's. Pt fully participated in 8 treatment sessions, was able to promote active range to achieve neutral cervical posture, reduced radicular symptoms 100%, and is I with HEP. D/C to HEP at this time, pt in agreement. Thank you for this referral. Electronically signed by: Jenna Hernandez PT, DPT Please sign and return to therapist. Thank you for your referral.
== END 2024-07-11 12:39 | disposition home or self-care (01) ==
LOC: HO.PT 09:00
PROVIDERS: PCP Nurse Practitioner Primary Care; Visit Provider Psychiatry & Neurology Neurology
DX: M54.2 Cervicalgia (principal)
CPT/HCPCS: 97110; 97140; 97162

== ENCOUNTER 2023-12-21 13:20 | Outpatient (AMB) | payer OTHER, SELFPAY ==
--- NOTE | 2023-12-21 13:39 | MHC.OFFVIS ---
Intake Vital Signs 12/21/23 13:40 Height 5 ft 7 in Weight 200 lb BMI 31.3 BP 108/62 Blood Pressure Location Rt brachial Position Sitting Respiration 17 Pulse 90 Pulse Source Pulse Oximeter Pulse Oximetry (%) 97 Oxygen Delivery Method Room Air Intake Visit Reasons: Follow up JEVON Intake Note: Pt presents for follow up for neuropathy. 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) As directed carvedilol 1 tab PO DAILY empagliflozin (Jardiance) 25 mg PO QAM gabapentin 300 mg PO BEDTIME hydroxyzine HCl 25 mg PO TID PRN insulin aspart U-100 (Novolog FlexPen U-100 Insulin aspart) 30 units subcut DAILY insulin glargine (Lantus Solostar U-100 Insulin) 30 units subcut BEDTIME lancets (FreeStyle Lancets) As directed 3 times a day levothyroxine 137 mcg PO DAILY linaclotide (Linzess) 290 mcg PO QAM 30 days melatonin 1 tab PO BEDTIME PRN metformin ER 1,000 mg PO multivitamin 1 tab PO DAILY multivitamin with folic acid 400 mcg (Daily-Fidelia (with folic acid)) 0 tabs PO omeprazole 40 mg PO DAILY pregabalin 75 mg PO DAILY rosuvastatin 10 mg PO BEDTIME sacubitril-valsartan 97-103 mg (Entresto) 1 tab PO tirzepatide (Mounjaro) 10 mg (0.5 mL) subcut QWEEK HPI HPI Comments History of Present Illness Details 68y/o left handed female with h/o long standing diabetes for over 30 years comes for follow up of neuropathy and restless legs syndrome. she is doing well on gabapentin and alpha lipoic acid .Her Hg A1C is 7.4 now. she also neck pain and headaches - she went for therapy but still has daily neck pain and headaches.she takes tylenol- 1-2 tabs bedtime.she has photophobia , phonophobia, nausea and feels dizzy. she reports numbness and tingling in distal lower extremities for over 10 years . 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 she still has numbness, squeezing , tingling in bilateral feet worse when she is resting . The symptoms are worse in evening and also wakes her up from sleep. she also reports weakness of her left leg . she also has back pain . No urinary difficulties. she also has mild numbness in her hands now. In 2017 she had fracture of her left foot and has been weak and painful since then . she also has bone spurs.she also reports swelling of his left foot. [facility] Medical History Vertigo Cervicalgia Restless legs syndrome (RLS) Neuropathy Palpitations CAD (coronary artery disease) Depression High cholesterol Celiac disease HTN (hypertension) Hypothyroid Insulin dependent type 1 diabetes mellitus Surgical History H/O bilateral breast reduction surgery History of carpal tunnel release of both wrists History of section H/O abdominoplasty Hx of colonoscopy History of arthroplasty of left knee H/O heart artery stent Family History Mother Diabetes High blood pressure Father Diabetes High blood pressure Paternal Aunt Bone cancer Sister Breast cancer Sister Lymph node cancer Social History Household Members: None Housing: Apartment Are you a primary laboratory animal caretaker to a significant other at home: No Do you presently have visiting nurse or other home services: No Alcohol intake: never Patient Tobacco Use Status: Never used Tobacco service: No Current occupational status: disabled Physical Exam Vital Signs: Last Vital Signs Pulse 90 12/21/23 13:40 Resp 17 12/21/23 13:40 BP 108/62 12/21/23 13:40 Pulse Ox 97 12/21/23 13:40 Oxygen Delivery Method Room Air 12/21/23 13:40 BMI result Body Mass Index 31.3 Const General: cooperative, healthy appearing and comfortable Nutritional Appearance: average body habitus Orientation/consciousness: patient oriented x3 Limitations: physical limitations HEENT Head: Yes normal to inspection Eyes Pupils: Equal, round and reactive pupils present Neck Other: restricted range of motion Tightness and tenderness in neck muscles Neuro 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 General: patient oriented x3, tone normal and moves all extremities Cranial nerves: Yes Facial sensation intact/muscles of mastication intact, Yes Equal, round and reactive pupils present, Yes Bilaterally intact EOM present, Yes Nystagmus not present, Yes Normal facial strength present and Yes Symmetric palate elevation present Cognition (Neuro): normal cognition Gait exam (Neuro): Antalgic gait present Motor exam (neuro): 5/5 motor strength present throughout and Normal motor muscle tone present throughout Coordination: [id number] test normal Assessment & Plan Assessment & Plan (1) Neuropathy: Comment: nelli diabetic with component of CRPS in her left foot Code(s): G62.9 - Polyneuropathy, unspecified (2) Restless legs syndrome (RLS): Code(s): G25.81 - Restless legs syndrome (3) Cervicalgia: Code(s): M54.2 - Cervicalgia (4) Vertigo: Comment: cervicogenic Code(s): R42 - Dizziness and giddiness Plan Increase gabapentin 600mg qhs Alpha lipoic acid 300mg bid I will trial her on baclofen 10mg qhs Medications: New baclofen 10 mg PO BEDTIME 30 tabs 4RF Coding Level of Care Code Est Pt Level 4 (57036) Diagnoses Neuropathy G62.9 Restless legs syndrome (RLS) G25.81 Cervicalgia M54.2 Vertigo R42
[2023-12-21 13:40] VITALS: BP 108/62; PULSE 90; RESP 17; O2SAT 97; BMI 31.3
== END 2023-12-21 14:15 | disposition home or self-care (01) ==
LOC: HO.HSMS 13:20
PROVIDERS: PCP Nurse Practitioner Primary Care; Visit Provider Psychiatry & Neurology Neurology
DX: G62.9 Polyneuropathy, unspecified (principal); G25.81 Restless legs syndrome; M54.2 Cervicalgia; R42 Dizziness and giddiness
CPT/HCPCS: 99214

== ENCOUNTER → 2023-12-21 13:20 | Outpatient (BNVA) | payer OTHER, SELFPAY | PROVIDERS: PCP Nurse Practitioner Primary Care; Visit Provider Psychiatry & Neurology Neurology | DX: G62.9 Polyneuropathy, unspecified (principal); G25.81 Restless legs syndrome; M54.2 Cervicalgia; R42 Dizziness and giddiness | CPT/HCPCS: 99212 ==

== ENCOUNTER → 2023-12-29 20:30 | Outpatient (BNV) | payer OTHER, SELFPAY | PROVIDERS: PCP Nurse Practitioner Primary Care; Visit Provider Psychiatry & Neurology Neurology | DX: G47.33 Obstructive sleep apnea (adult) (pediatric) (principal) | CPT/HCPCS: 95811 ==

== ENCOUNTER → 2023-12-29 20:30 | Outpatient (REF) | payer OTHER, SELFPAY | LOC: HO.SL 20:30 | PROVIDERS: PCP Nurse Practitioner Primary Care; Visit Provider Nurse Practitioner Family | DX: G47.33 Obstructive sleep apnea (adult) (pediatric) (principal) | CPT/HCPCS: 95811 ==

== ENCOUNTER 2024-01-26 10:27 | Outpatient (AMB) | payer OTHER, SELFPAY ==
[2024-01-26 10:36] VITALS: BP 106/53; PULSE 83; BMI 30.2
--- NOTE | 2024-01-26 10:36 | A.OFFVIS_ITS ---
Vital Signs 3 01/26/24 10:36 Height 5 ft 7 in Weight 192 lb 10.944 oz BMI 30.2 BP 106/53 L Blood Pressure Location Lt brachial Position Sitting Pulse 83 Intake Visit Reasons: 6 month follow up constipation Intake Note: Patient in office today in 6 months follow up of constipation. CC: Patient states that she would like to have an EGD done because she feels like the food stays in her epigastric area, and also vomits after applying pressure to that area. Transit Clerk Required: Yes Transit Clerk Name: Luisana [id number] Accompanied by: Self / Same As Patient Allergies No Known Allergies Allergy (Verified 01/26/24 10:44) HPI HPI 6 month follow up constipation: Details: Assessment & Plan (1) Chronic idiopathic constipation: Code(s): K59.04 - Chronic idiopathic constipation Plan: FRENCH #Dipika Avinash She feels that the Linzess at 290 is the right dose for her, she will at times not take it every day if her stools get too soft and this is working well for her Because if I don't take it the stool is hard and gets stuck. She is now taking her Entresto in divided dose and this seems to be working better for her in terms of her syncopal episodes. She continues on her omeprazole 40mg qd. She tried to register with [facility] for bariatric surgery but they said she did not meet the criteria interims of BMI. She says she will be checking with her feed grinder as she has seen commercials regarding Ozempic. Depression has been hitting her at times recently. THere were several unfortunate family occurrences ( of a former , her dtr fell and has a concussion, and her grandson hurt his kneees seriously) and at times I don't want to get OOB. She is not SI or HI, and she is seeing her PCP tomorrow to discuss this. ROV 3 mos. (2) GERD (gastroesophageal reflux disease): Code(s): K21.9 - Gastro-esophageal reflux disease without esophagitis Medications: New omeprazole 40 mg PO DAILY 30 caps 6RF Refilled linaclotide (Linzess) 290 mcg PO QAM 30 days 30 caps 6RF K59.04 - Chronic idiopathic constipation US ABDOMEN 10/28/22 FINDINGS: Study limited due to body habitus. PANCREAS: Obscured by bowel gas. ABDOMINAL AORTA: Normal caliber proximal aorta. Mid and distal aorta is obscured by bowel gas. INFERIOR VENA CAVA: Visualized portions are normal. LIVER: Mildly echogenic liver parenchyma. The liver contour is normal. No focal hepatic lesion. There is no intrahepatic biliary duct dilatation seen. GALLBLADDER: Normal. The gallbladder is physiologically distended without evidence of stones, sludge, polyps, wall thickening or pericholecystic fluid. COMMON BILE DUCT: Normal in caliber measuring 0.3 cm in diameter. RIGHT KIDNEY: Normal. No hydronephrosis. No renal calculi or focal parenchymal lesions. The kidney measures 11.3 cm in maximum dimension. LEFT KIDNEY: Normal. No hydronephrosis. No renal calculi or focal parenchymal lesions. The kidney measures 11.0 cm in maximum dimension. SPLEEN: Normal. The spleen measures 8.8 cm in maximum dimension. FREE FLUID: None. US/US abdomen complete IMPRESSION: 1. There is generalized increase in hepatic echotexture, consistent with fatty infiltration or hepatocellular disease. Please correlate clinically. No focal hepatic mass or intrahepatic biliary duct dilatation is seen. 2. Pancreas obscured by bowel gas. 3. Partially visualized ., Detailed above. TODAY'S VISIT [facility] #[id number] (not good connection), [id number] Her stomach has been giving her problems with gastric pain with everything she eats. This is not allowing her to sleep well. This has exacerbated recently, This has been over the past few months. She will have nausea and dry heaves and she has dyspepsia and borborygus. She will frequently have to vomit food back up. At times she feels like there is a ball in my stomach. She has occasional early satiety, but she feels like when I squeeze my stomach it feels like the flood is not getting processed. She has a lot of gas and bloating. She is moving her bowels daily but only in small amounts. She is not taking the Linzess every day because she will be in the bathroom all day and then I would not be able to leave the house. She is worried about the hernia in my esophagus that I have had for years adn I would like that checked. She is having dysphagia at the [facility] area and she has to drink a lot of water to get it to pass. I will order an EGD. She also has an intermittent pain under the right rib that is aching. She questions GB but she had an US in October that did not show gallstones, so will get a HIDA scan. I think a GES is in order. EGD as well, had colonoscopy in 2021. She continues on o2o 40mg qd and at times takes 2 at a time which helps the sx a little. She is worried about FHX cirrhosis but they were ETOH drinkers and she does not imbibe - but will get liver panel as she ahd not had one since 2022. ROV 4 weeks. Eval pantoprazole and mylanta. [facility] Medical History Vertigo Cervicalgia Restless legs syndrome (RLS) Neuropathy Palpitations CAD (coronary artery disease) Depression High cholesterol Celiac disease HTN (hypertension) Hypothyroid Insulin dependent type 1 diabetes mellitus Surgical History H/O bilateral breast reduction surgery History of carpal tunnel release of both wrists History of section H/O abdominoplasty Hx of colonoscopy History of arthroplasty of left knee H/O heart artery stent Family History Mother Diabetes High blood pressure Father Diabetes High blood pressure Paternal Aunt Bone cancer Sister Breast cancer Sister Lymph node cancer Social History Household Members: None Housing: Apartment Are you a primary personal care aide to a significant other at home: No Do you presently have visiting nurse or other home services: No Alcohol intake: never Patient Tobacco Use Status: Never used Tobacco service: No Current occupational status: disabled Review of Systems Const Denies fatigue, Denies fever(s), Denies night sweats, Denies poor appetite and Denies weight loss Eyes Details: g;asses Reports requires corrective lenses ENT Reports Normal hearing present, Denies dysphagia, Denies odynophagia, Denies throat swelling and Denies tongue swelling Card Reports no additional complaints Resp Reports no additional complaints GI Details: Denies abdominal pain, Denies melena, Reports bloating, Denies hematochezia, Reports constipation, Reports GI cramping, Denies dysphagia, Denies excessive flatus, Denies early satiety, Reports heartburn, Denies diarrhea, Reports nausea, Denies odynophagia, Denies vomiting and Denies hematemesis Skin/Breast Denies pruritus, Denies lesions, Denies rash and Denies jaundice Neuro Reports Normal hearing present and Denies Abnormal speech present Endo Denies fatigue Aller/Immun Denies throat swelling and Denies tongue swelling Physical Exam Vital Signs: Last Vital Signs Pulse 83 01/26/24 10:36 BP 106/53 L 01/26/24 10:36 BMI result Body Mass Index 30.2 Const General: cooperative, no acute distress, well developed and well groomed Nutritional Appearance: well nourished and obese Orientation/consciousness: oriented to person, oriented to place and oriented to time Limitations: language barrier HEENT Head: Yes normocephalic and Yes atraumatic Eyes General: appearance normal, both eyes and all related structures Pupils: Equal, round and reactive pupils present Neck Neck: Yes normal visual inspection and Yes no lymphadenopathy Thyroid: Thyroid normal Resp Effort & Inspection: normal respiratory effort and able to speak in complete sentences Auscultation: clear to auscultation bilaterally Cardio Rate: regular rate Rhythm: regular rhythm Heart sounds: Normal, physiologic split S2 sound present Peripheral pulses: radial pulses present and posterior tibial pulses present GI Inspection: No distended, No Abdominal panniculus present and Yes obesity Palpation (GI): Soft to palpation, Tenderness to palpation present (GI) periumbilically, no guarding, not rigid and No hepatosplenomegaly present Percussion: Yes normal to percussion Auscultation: normal bowel sounds Rectal Exam - Female: deferred Abdomen image: 2 1. surgical scar 2. Insulin sensor Skin General skin exam: no rashes or lesions noted, turgor normal, skin not dry, no jaundice, No spider nevi and no striae Rashes: no rashes Nails: normal Neuro General: oriented to person, oriented to place and oriented to time Cranial nerves: Yes Equal, round and reactive pupils present and Yes Normal hearing present Speech: No Abnormal speech present Extrem General: Yes normal to inspection, No clubbing, No cyanosis and No edema Psych Appearance: grossly normal and well kempt Mental Status: mental status grossly normal Speech and movement: Normal speech and movement present Affect: normal affect Attitude: cooperative Thought process: Normal thought process present and not confabulating Thought content: Normal thought content present Insight: Limited insight present (Psych) Judgement: Limited judgement present (Psych) Results Reviewed Results Reviewed: US ABDOMEN 10/28/22 FINDINGS: Study limited due to body habitus. PANCREAS: Obscured by bowel gas. ABDOMINAL AORTA: Normal caliber proximal aorta. Mid and distal aorta is obscured by bowel gas. INFERIOR VENA CAVA: Visualized portions are normal. LIVER: Mildly echogenic liver parenchyma. The liver contour is normal. No focal hepatic lesion. There is no intrahepatic biliary duct dilatation seen. GALLBLADDER: Normal. The gallbladder is physiologically distended without evidence of stones, sludge, polyps, wall thickening or pericholecystic fluid. COMMON BILE DUCT: Normal in caliber measuring 0.3 cm in diameter. RIGHT KIDNEY: Normal. No hydronephrosis. No renal calculi or focal parenchymal lesions. The kidney measures 11.3 cm in maximum dimension. LEFT KIDNEY: Normal. No hydronephrosis. No renal calculi or focal parenchymal lesions. The kidney measures 11.0 cm in maximum dimension. SPLEEN: Normal. The spleen measures 8.8 cm in maximum dimension. FREE FLUID: None. US/US abdomen complete IMPRESSION: 1. There is generalized increase in hepatic echotexture, consistent with fatty infiltration or hepatocellular disease. Please correlate clinically. No focal hepatic mass or intrahepatic biliary duct dilatation is seen. 2. Pancreas obscured by bowel gas. 3. Partially visualized ., Detailed above. Assessment & Plan Assessment & Plan (1) Chronic idiopathic constipation: Code(s): K59.04 - Chronic idiopathic constipation Category: Medical (2) GERD (gastroesophageal reflux disease): Code(s): K21.9 - Gastro-esophageal reflux disease without esophagitis Category: Medical (3) Dysphagia: Code(s): R13.10 - Dysphagia, unspecified Category: Medical (4) Abdominal bloating: Code(s): R14.0 - Abdominal distension (gaseous) Category: Medical (5) Upper abdominal pain: Code(s): R10.10 - Upper abdominal pain, unspecified Category: Medical (6) Family history of cirrhosis of liver: Comment: US ABDOMEN 10/28/22 FINDINGS: Study limited due to body habitus. PANCREAS: Obscured by bowel gas. ABDOMINAL AORTA: Normal caliber proximal aorta. Mid and distal aorta is obscured by bowel gas. INFERIOR VENA CAVA: Visualized portions are normal. LIVER: Mildly echogenic liver parenchyma. The liver contour is normal. No focal hepatic lesion. There is no intrahepatic biliary duct dilatation seen. GALLBLADDER: Normal. The gallbladder is physiologically distended without evidence of stones, sludge, polyps, wall thickening or pericholecystic fluid. COMMON BILE DUCT: Normal in caliber measuring 0.3 cm in diameter. RIGHT KIDNEY: Normal. No hydronephrosis. No renal calculi or focal parenchymal lesions. The kidney measures 11.3 cm in maximum dimension. LEFT KIDNEY: Normal. No hydronephrosis. No renal calculi or focal parenchymal lesions. The kidney measures 11.0 cm in maximum dimension. SPLEEN: Normal. The spleen measures 8.8 cm in maximum dimension. FREE FLUID: None. US/US abdomen complete IMPRESSION: 1. There is generalized increase in hepatic echotexture, consistent with fatty infiltration or hepatocellular disease. Please correlate clinically. No focal hepatic mass or intrahepatic biliary duct dilatation is seen. 2. Pancreas obscured by bowel gas. 3. Partially visualized ., Detailed above. Code(s): Z83.79 - Family history of other diseases of the digestive system Category: Medical Plan FRENCH #[id number] (not good connection), [id number] Her stomach has been giving her problems with gastric pain with everything she eats. This is not allowing her to sleep well. This has exacerbated recently, This has been over the past few months. She will have nausea and dry heaves and she has dyspepsia and borborygus. She will frequently have to vomit food back up. At times she feels like there is a ball in my stomach. She has occasional early satiety, but she feels like when I squeeze my stomach it feels like the flood is not getting processed. She has a lot of gas and bloating. She is moving her bowels daily but only in small amounts. She is not taking the Linzess every day because she will be in the bathroom all day and then I would not be able to leave the house. She is worried about the hernia in my esophagus that I have had for years adn I would like that checked. [facility] and she has to drink a lot of water to get it to pass. I will order an EGD. She also has an intermittent pain under the right rib that is aching. She questions GB but she had an US in October that did not show gallstones, so will get a HIDA scan. I think a GES is in order. EGD as well, had colonoscopy in 2021. She continues on o2o 40mg qd and at times takes 2 at a time which helps the sx a little. She is worried about FHX cirrhosis but they were ETOH drinkers and she does not imbibe - but will get liver panel as she ahd not had one since 2022. ROV 4 weeks. Eval pantoprazole and mylanta. Orders: Orders 2 FL barium swallow 01/26/24 R13.10 - Dysphagia, unspecified NM gastric emptying study 01/26/24 R14.0 - Abdominal distension (gaseous), R10.10 - Upper abdominal pain, unspecified TSH reflex Free T4 01/26/24 R10.10 - Upper abdominal pain, unspecified, Z83.79 - Family history of other diseases of the digestive system EGD with [facility] - GI Use Only 01/26/24 R13.10 - Dysphagia, unspecified NM hepatobiliary w pharm 01/26/24 R14.0 - Abdominal distension (gaseous), R10.10 - Upper abdominal pain, unspecified Comprehensive Met. Panel 01/26/24 R10.10 - Upper abdominal pain, unspecified, Z83.79 - Family history of other diseases of the digestive system Medications: New 2 pantoprazole (Protonix) 40 mg PO BID 60 tabs 6RF 30 days R13.10 - Dysphagia, unspecified, K21.9 - Gastro-esophageal reflux disease without esophagitis alum-mag hydroxide-simeth 400-400-40 mg/5 mL (Mylanta Maximum Strength) 5 mL PO QID PRN 3,000 mL 3RF indigestion R14.0 - Abdominal distension (gaseous) Discontinued 2 omeprazole Discontinued Reason: Doctor's Order 40 mg PO DAILY 30 caps 6RF Coding Level of Care Code Est Pt Level 4 (79859) Diagnoses Chronic idiopathic constipation K59.04 GERD (gastroesophageal reflux disease) K21.9 Dysphagia R13.10 Abdominal bloating R14.0 Upper abdominal pain R10.10 Family history of cirrhosis of liver Z83.79
== END 2024-01-26 11:27 | disposition home or self-care (01) ==
PROVIDERS: PCP Nurse Practitioner Primary Care; Visit Provider Nurse Practitioner
DX: K59.04 Chronic idiopathic constipation (principal); K21.9 Gastro-esophageal reflux disease without esophagitis; R13.10 Dysphagia, unspecified; R14.0 Abdominal distension (gaseous); R10.10 Upper abdominal pain, unspecified; Z83.79 Family history of other diseases of the digestive system
CPT/HCPCS: 99214

== ENCOUNTER → 2024-01-26 10:27 | Outpatient (BNVA) | payer OTHER, SELFPAY | PROVIDERS: PCP Nurse Practitioner Primary Care; Visit Provider Nurse Practitioner | DX: K59.04 Chronic idiopathic constipation (principal); K21.9 Gastro-esophageal reflux disease without esophagitis; R13.10 Dysphagia, unspecified; R14.0 Abdominal distension (gaseous); R10.10 Upper abdominal pain, unspecified; Z83.79 Family history of other diseases of the digestive system | CPT/HCPCS: 99212 ==

== ENCOUNTER 2024-01-28 10:58 | Outpatient (REF) | payer OTHER, SELFPAY ==
--- NOTE | ~2024-01-28 | US_ITS ---
EXAMINATION: US PELVIS CLINICAL INFORMATION: Leiomyoma. COMPARISON: 10/20/2023: Newly recognized 0.7 x 0.8 x 0.7 cm fibroid now seen. Endometrium is abnormally thickened, heterogeneous and irregular measuring 1.8 cm. Feeding vessels is demonstrated on vascular imaging. TECHNIQUE: Ultrasound of the pelvis is performed using both transabdominal and transvaginal transducers along with Doppler. Transvaginal imaging is performed due to inadequate visualization transabdominally. FINDINGS: UTERUS: The uterus is anteverted and measures 7.0 x 4.0 x 5.6 cm. The double wall endometrial thickness is 8.3 mm with a feeding vessel seen, possibly indicative of a polyp which is not identified. The uterus is smooth in contour and has normal myometrial echogenicity. A single fibroid is seen in the lower uterine segment on the left, measuring 1.1 x 1.2 x 1.8 cm (previously 1.2 x 1.0 x 1.6 cm). ADNEXA: Both ovaries are visualized. There is normal color flow to the adnexa. There is no ovarian torsion. There is no pelvic ascites or fluid collection. Right ovary measures 2.7 x 2.7 x 1.6 cm for a volume of 6.1 mL. Left ovary measures 2.7 x 1.6 x 2.1 cm for a volume of 4.8 mL. US/US pelvic and transvaginal IMPRESSION: 1. Endometrium is 8.3 mm with a feeding vessel seen, possibly indicative of a polyp which is not identified. Hysterosonography or hysteroscopy may be useful for further evaluation. 2. Single fibroid in the lower uterine segment, on the left, measuring 1.8 cm.
== END 2024-01-28 10:59 | disposition home or self-care (01) ==
LOC: HO.US 10:58
PROVIDERS: PCP Nurse Practitioner Primary Care; Visit Provider Obstetrics & Gynecology
DX: D25.9 Leiomyoma of uterus, unspecified (principal)
CPT/HCPCS: 76830; 76856

== ENCOUNTER 2024-02-18 12:53 | Outpatient (AMB) | payer OTHER, SELFPAY ==
[2024-02-18 12:57] VITALS: BP 116/62
--- NOTE | 2024-02-18 12:57 | MHC.OFFVIS ---
Vital Signs 02/18/24 12:57 Height 5 ft 7 in Weight 191 lb 12.835 oz BMI 30.0 BP 116/62 Intake Visit Reasons: Ultrasound follow up Financial Planner Required: Yes Financial Planner Language: Front End Java Developer Name: Emely SUAZO Information Interpreted: non-clinical & clinical Accompanied by: Self / Same As Patient Allergies No Known Allergies Allergy (Verified 02/18/24 13:05) Post menopausal: Yes HPI Comments Details: Presenting for ultrasound follow-up which showed the following: UTERUS: The uterus is anteverted and measures 7.0 x 4.0 x 5.6 cm. The double wall endometrial thickness is 8.3 mm with a feeding vessel seen, possibly indicative of a polyp which is not identified. The uterus is smooth in contour and has normal myometrial echogenicity. A single fibroid is seen in the lower uterine segment on the left, measuring 1.1 x 1.2 x 1.8 cm (previously 1.2 x 1.0 x 1.6 cm). ADNEXA: Both ovaries are visualized. There is normal color flow to the adnexa. There is no ovarian torsion. There is no pelvic ascites or fluid collection. Right ovary measures 2.7 x 2.7 x 1.6 cm for a volume of 6.1 mL. Left ovary measures 2.7 x 1.6 x 2.1 cm for a volume of 4.8 mL. The patient has been trying to get an appointment with Cardiology for medical clearance prior to surgery and has been unsuccessful [facility] Medical History Vertigo Cervicalgia Restless legs syndrome (RLS) Neuropathy Palpitations CAD (coronary artery disease) Depression High cholesterol Celiac disease HTN (hypertension) Hypothyroid Insulin dependent type 1 diabetes mellitus Surgical History H/O bilateral breast reduction surgery History of carpal tunnel release of both wrists History of section H/O abdominoplasty Hx of colonoscopy History of arthroplasty of left knee H/O heart artery stent Family History Mother Diabetes High blood pressure Father Diabetes High blood pressure Paternal Aunt Bone cancer Sister Breast cancer Sister Lymph node cancer Social History Household Members: None Housing: Apartment Are you a primary district manager primary care sales to a significant other at home: No Do you presently have visiting nurse or other home services: No Alcohol intake: never Patient Tobacco Use Status: Never used Tobacco service: No Current occupational status: disabled Review of Systems Const All systems reviewed & are unremarkable except as noted in HPI and below Reports as per HPI and Reports no additional complaints GI Reports no additional complaints Reports no additional complaints Physical Exam Vital Signs: Last Vital Signs BP 116/62 02/18/24 12:57 BMI result Body Mass Index 30.0 Assessment & Plan Assessment & Plan (1) Endometrial polyp: Code(s): N84.0 - Polyp of corpus uteri Category: Medical Plan: Discussed with the patient the finding on ultrasound showing endometrial polyp, recommended hysteroscopy D&C possible polypectomy/myomectomy. The patient saw her tube room cashier had a stress test and does not have a follow-up appointment, waiting for cardiac clearance. Once cardiac clearance is available will schedule the procedure rasheeda (2) Uterine myoma: Code(s): D25.9 - Leiomyoma of uterus, unspecified Category: Medical Plan: Discussed with the patient the findings on pelvic ultrasound & the risk of myosarcoma; discussed with the patient the options of treatment including expectant management versus hysterectomy; the pros and cons, risks benefits of each approach were discussed with the patient including the fact that in cases of myosarcoma, surgical treatment can lead to early diagnosis and positively affects the prognosis; after further discussion, the patient decided to proceed with expectant management. Will repeat pelvic ultrasound in 9 months. Instructions given to patient to call in case any of the following occurs: pressure symptoms, abnormal uterine bleeding, pelvic pain; and to schedule a 9 months ultrasound follow-upappointment for reassessment. All questions answered, the patient verbalized understanding and agreed with the plan . Orders: Orders US pelvic and transvaginal 9 Months D25.9 - Leiomyoma of uterus, unspecified Coding Level of Care Code Est Pt Level 3 (99353) Diagnoses Endometrial polyp N84.0 Uterine myoma D25.9
== END 2024-02-18 15:05 | disposition home or self-care (01) ==
LOC: HO.HWS 12:53
PROVIDERS: PCP Nurse Practitioner Primary Care; Visit Provider Obstetrics & Gynecology
DX: N84.0 Polyp of corpus uteri (principal); D25.9 Leiomyoma of uterus, unspecified
CPT/HCPCS: 99213

== ENCOUNTER → 2024-02-18 12:53 | Outpatient (BNVA) | payer OTHER, SELFPAY | PROVIDERS: PCP Nurse Practitioner Primary Care; Visit Provider Obstetrics & Gynecology | DX: N84.0 Polyp of corpus uteri (principal); D25.9 Leiomyoma of uterus, unspecified | CPT/HCPCS: 99212 ==

== ENCOUNTER → 2024-02-19 10:35 | Outpatient (REF) | payer OTHER, SELFPAY ==
--- NOTE | ~2024-02-19 | NM_ITS ---
EXAMINATION: BILIARY TRACT IMAGING STUDY WITH CCK CLINICAL INFORMATION: Abdominal distention. Upper abdominal pain. Bloating. COMPARISON: HIDA scan done on 11/08/2009.. TECHNIQUE: Serial gamma scintillation camera images were obtained over the abdomen for a total observation period of 60 minutes following the intravenous administration of 5.0 mCi Tc-99m mebrofenin. FINDINGS: There is good concentration of activity in the liver by 5 minutes post injection. Biliary activity is visualized by 10 minutes. The gallbladder is well visualized by 20 minutes. Small bowel is well visualized by 30 minutes. At 60 minutes post radiopharmaceutical injection, a 30-minute infusion of 1.8 micrograms Sincalide was then begun and an additional 40 minutes of images were obtained. There is good emptying of the gallbladder. By the end of the study there is good clearance of activity from the liver and visualization of diffuse small bowel activity. The calculated gallbladder ejection fraction is 70% (Normal range of gallbladder ejection fraction is between 35-80%; GBEF <35% is considered biliary hypokinesia and >80% is considered biliary hyperkinesia; Ref. #1-Clinical Journal of Gastroenterology (2020) 14:1308?1317; Ref.#2-[email or web address]). NM/NM hepatobiliary w pharm IMPRESSION: Visualization of the gallbladder is evidence of a patent cystic duct and strong evidence against the diagnosis of acute cholecystitis. The common bile duct is patent. Gallbladder emptying and ejection fraction are normal. Liver function appears normal. By report no significant change since 11/08/2009.
== END ==
LOC: HO.NUCMED 10:35
PROVIDERS: PCP Nurse Practitioner Primary Care; Visit Provider Nurse Practitioner
DX: R10.10 Upper abdominal pain, unspecified (principal); R14.0 Abdominal distension (gaseous)
CPT/HCPCS: 78227; A9537; J2805

== ENCOUNTER 2024-02-26 12:00 | Outpatient (REF) | payer OTHER, SELFPAY ==
--- NOTE | ~2024-02-26 | XR_ITS ---
EXAMINATION: XR FOOT, RIGHT CLINICAL INFORMATION: Right foot infection. History of diabetes. COMPARISON: None available. TECHNIQUE: AP, lateral, and oblique views of the right foot. FINDINGS: There is bony resorption/erosion of the distal tuft of the third digit distal phalanx. There is significant soft tissue swelling with subcutaneous emphysema. No displaced fracture. Posterior and plantar calcaneal spurring. Calcification within the plantar fascia. Vascular calcifications are present. XR/XR foot RT 2V IMPRESSION: Bony resorption/erosion of the distal tuft of the third digit distal phalanx. There is significant soft tissue swelling with subcutaneous emphysema. This may represent acute osteomyelitis.
== END 2024-02-26 12:01 | disposition home or self-care (01) ==
LOC: HO.HHCX 12:00
PROVIDERS: Visit Provider Nurse Practitioner Primary Care
DX: E11.628 Type 2 diabetes mellitus with other skin complications (principal); L08.9 Local infection of the skin and subcutaneous tissue, unspecified
CPT/HCPCS: 73620

== ENCOUNTER → 2024-03-02 08:07 | Outpatient (REF) | payer OTHER, SELFPAY ==
--- NOTE | ~2024-03-02 | NM_ITS ---
EXAMINATION: MA RADIONUCLIDE SOLID FOOD GASTRIC EMPTYING 4-HOUR STUDY CLINICAL INFORMATION: Abdominal distention (gaseous) COMPARISON: No previous gastric emptying study is available for comparison. TECHNIQUE: A standard meal consisting of 4 oz of Egg Beaters brand tagged with 940 microcuries Tc-99m Sulfur Colloid, 8 oz water and 2 slices of toast with jelly was administered orally to the patient. Images were obtained using a dual head gamma camera in the anterior and posterior projections over of the stomach immediately post ingestion and at hourly intervals up to 4 hours post ingestion. The anterior and posterior counts at each time interval were averaged using the geometric mean and expressed as percentage of the immediate post ingestion counts. FINDINGS: There is good visualization of activity in the stomach immediately post ingestion. As the study progresses, there is poor clearance of activity from the stomach. Only minimal small bowel activity is visualized, and only at 4 hours. There is markedly abnormal retention of activity in the stomach at 4 hours. Retention in the stomach at each time interval was: 1 hour 98% (normal 37%-90%) 2 hours 95% (normal 30%-60%) 3 hours 92% 4 hours 78% (normal 0%-10%) MA/MA gastric emptying study IMPRESSION: Abnormal study. There is severe retention of solid food in the stomach at 4 hours. Gastric emptying study grading per JNMT Consensus Recommendations in 2008: https://tech.snmjournals.org/content/36/1/44 Grade 1 (mild retention): 11-20% at 4 hours Grade 2 (moderate retention): 21-35% at 4 hours Grade 3 (severe retention): 36-50% at 4 hours Grade 4 (very severe retention): >50% retention at 4 hours
== END ==
LOC: HO.NUCMED 08:07
PROVIDERS: PCP Nurse Practitioner Primary Care; Visit Provider Nurse Practitioner
DX: R14.0 Abdominal distension (gaseous) (principal); R10.10 Upper abdominal pain, unspecified
CPT/HCPCS: 78264; A9541

== ENCOUNTER 2024-03-16 08:38 | Outpatient (REF) | payer OTHER, SELFPAY ==
--- NOTE | ~2024-03-16 | FL_ITS ---
EXAMINATION: XR FLUOROSCOPY UPPER GI WITH AIR CLINICAL INFORMATION: Dysphagia COMPARISON: None TECHNIQUE: Fluoroscopic air contrast upper GI examination was performed utilizing standard techniques with thin and thick barium and effervescent granules. Numerous spot images were obtained. FINDINGS: Lateral cine images of the oropharynx and hypopharynx demonstrate normal swallow mechanism with normal epiglottic inversion and soft palate elevation. There is trace laryngeal penetration with thick barium. No tracheal penetration, glottic or subglottic aspiration identified. No nasopharyngeal reflux present. A small pharyngeal pouch is present. Hypopharyngeal structures appear normal without evidence of mass or diverticulum. Mild cricopharyngeal achalasia present. Dual and single contrast images of the esophagus demonstrate normal caliber, contour, and mucosal pattern. No evidence of stricture, mass, or ulcerations identified. Esophageal peristalsis was mildly disorganized. A nonobstructive Schatzki's ring is present. A small type I hiatal hernia is present. No significant gastroesophageal reflux was seen during the course of the examination and on reflux views. Dual contrast and single contrast images of the stomach demonstrated a normal contour. The gastric rugal folds have a mildly thickened appearance. There are multiple areas of contrast pooling in the fundus and body the stomach that may represent small superficial aphthous ulcers. There is to and fro motion of a mixed contrast/density in the stomach that may represents retained food. Contrast freely passed into the gastric antrum and duodenal bulb without delay. Single and air-contrast images of the duodenal bulb demonstrate no abnormality. The duodenal sweep has a normal appearance, course, and mucosal fold appearance. The imaged proximal jejunum has a normal fold pattern and caliber. FLUOROSCOPY TIME: 3 minutes 30 seconds Number of Spot Images: 11 Number of Cine: 14 DOSE AREA PRODUCT: 2645 uGy-m2 (microgray-meter squared) FL/FL barium swallow with air IMPRESSION: 1. Trace pharyngeal penetration with thick barium. 2. Small pharyngeal pouch 3. Mild cricopharyngeal achalasia 4. Mildly disorganized esophageal peristalsis 5. Nonobstructive Schatzki's ring 6. Small type I hiatal hernia 7. Thickened gastric rugal folds. In addition there are multiple tiny areas of contrast pooling in the fundus and body the stomach. These findings are suggestive of erosive gastritis. Recommend correlation with EGD. 8. To and fro motion of a mixed contrast/density in the stomach that may represent retained food. This procedure was performed by Lucas Davis PA-C, and supervised by Dr. Foley
== END 2024-03-16 08:39 | disposition home or self-care (01) ==
LOC: HO.XRAY 08:38
PROVIDERS: PCP Nurse Practitioner Primary Care; Visit Provider Nurse Practitioner
DX: R13.10 Dysphagia, unspecified (principal)
CPT/HCPCS: 74221

== ENCOUNTER → 2024-03-16 08:39 | Outpatient (BNV) | payer OTHER, SELFPAY | PROVIDERS: PCP Nurse Practitioner Primary Care; Visit Provider Physician Assistant Surgical | DX: R13.10 Dysphagia, unspecified (principal) | CPT/HCPCS: 74246 ==

== ENCOUNTER 2024-03-22 09:06 | Outpatient (REF) | payer OTHER, SELFPAY ==
--- NOTE | ~2024-03-22 | XR_ITS ---
EXAMINATION: XR ANKLE, LEFT XR FOOT, LEFT CLINICAL INFORMATION: Left foot pain. Left ankle pain. History of heel fracture. Acute on chronic. COMPARISON: 05/27/2022 TECHNIQUE: AP, lateral, and mortise views of the left ankle and AP, lateral, and oblique views of the left foot. FINDINGS: LEFT ANKLE: No acute fracture or malalignment. Ankle mortise is symmetric. Joint space appears normal. Large enthesopathic spur is present at the Achilles tendon insertion on the calcaneus. Moderate sized enthesopathic spur is present at the plantar fascial origin on the calcaneus. Small foci of heterotopic bone are present in the posterolateral soft tissues at the ankle. Soft tissues are swollen. Subcutaneous edema. Atherosclerotic calcifications are noted. LEFT FOOT: Mild osteoarthritis in the forefoot at the first MTP and multiple interphalangeal joints. No fracture or malalignment. Bipartite medial hallux sesamoid. No erosions. Mild soft tissue swelling XR/XR foot LT min 3V IMPRESSION: 1. No acute fracture or malalignment in the left ankle and foot. 2. Large enthesopathic spurs at the Achilles tendon insertion and plantar fascial origin on the calcaneus. 3. Mild osteoarthritis in the forefoot.
--- NOTE | ~2024-03-22 | XR_ITS ---
EXAMINATION: XR ANKLE, LEFT XR FOOT, LEFT CLINICAL INFORMATION: Left foot pain. Left ankle pain. History of heel fracture. Acute on chronic. COMPARISON: 05/27/2022 TECHNIQUE: AP, lateral, and mortise views of the left ankle and AP, lateral, and oblique views of the left foot. FINDINGS: LEFT ANKLE: No acute fracture or malalignment. Ankle mortise is symmetric. Joint space appears normal. Large enthesopathic spur is present at the Achilles tendon insertion on the calcaneus. Moderate sized enthesopathic spur is present at the plantar fascial origin on the calcaneus. Small foci of heterotopic bone are present in the posterolateral soft tissues at the ankle. Soft tissues are swollen. Subcutaneous edema. Atherosclerotic calcifications are noted. LEFT FOOT: Mild osteoarthritis in the forefoot at the first MTP and multiple interphalangeal joints. No fracture or malalignment. Bipartite medial hallux sesamoid. No erosions. Mild soft tissue swelling XR/XR ankle LT min 3V IMPRESSION: 1. No acute fracture or malalignment in the left ankle and foot. 2. Large enthesopathic spurs at the Achilles tendon insertion and plantar fascial origin on the calcaneus. 3. Mild osteoarthritis in the forefoot.
== END 2024-03-22 09:07 | disposition home or self-care (01) ==
LOC: HO.HHCX 09:06
PROVIDERS: Visit Provider Nurse Practitioner Primary Care
DX: M79.672 Pain in left foot (principal)
CPT/HCPCS: 73610; 73630

== ENCOUNTER 2024-03-29 06:37 | Day surgery (SDC) | payer OTHER, SELFPAY ==
--- NOTE | 2024-03-28 13:40 | HO.ANESPROP2 ---
HPI - Anesthesia Eval Consult details Narrative: 68yo F for Upper Endoscopy Cardiac optimized (s/p cardiac cath 03/24/24 showed nonobstructive CAD and patent stent to LAD) Follows [facility] for HFrEF d/t ischemic CMP (most recent LVEF 45-50%), CAD s/p stent to mid LAD 2017, htn, JEVON, DM2. Last office visit 01/2024 with c/o chest pressure at rest. Sent for stress echo and ultimately Left heart cath. Anesthesia Pre-Procedure Meds Is the patient on any of the following meds?: GLP1/DPP4 and SGLT2 Inhib PMFSH Active Problems Active Problems: All Active Problems Gastroparesis (Acute) Endometrial polyp (Acute) Family history of cirrhosis of liver (Acute) Upper abdominal pain (Acute) Abdominal bloating (Acute) Dysphagia (Acute) Uterine myoma (Acute) Vertigo (Acute) Cervicalgia (Acute) Osteoarthritis of right shoulder (Acute) Osteoarthritis of left acromioclavicular joint (Acute) Restless legs syndrome (RLS) (Acute) Neuropathy (Acute) GERD (gastroesophageal reflux disease) (Acute) Chronic idiopathic constipation (Acute) Postmenopausal bleeding (Acute) Type 2 diabetes mellitus (Acute) Chronic osteomyelitis (Acute) Pre-op exam (Acute) Tubular adenoma of colon (Acute) Coronary artery disease (Acute) JEVON (obstructive sleep apnea) (Acute) Paresthesia (Acute) Inguinal lymphadenopathy (Acute) HTN (hypertension) (Acute) Past Medical History Medical History Vertigo Cervicalgia Restless legs syndrome (RLS) Neuropathy Palpitations CAD (coronary artery disease) Depression High cholesterol Celiac disease HTN (hypertension) Hypothyroid Insulin dependent type 1 diabetes mellitus Family History Family History Mother Diabetes High blood pressure Father Diabetes High blood pressure Paternal Aunt Bone cancer Sister Breast cancer Sister Lymph node cancer Family history of problems with anesthesia: No Surgical History Surgical History H/O bilateral breast reduction surgery History of carpal tunnel release of both wrists History of section H/O abdominoplasty Hx of colonoscopy History of arthroplasty of left knee H/O heart artery stent History of Problems with Anesthesia: No Social History Social History Household Members: None Housing: Apartment Are you a primary healthcare business analyst to a significant other at home: No Do you presently have visiting nurse or other home services: No Alcohol intake: never Patient Tobacco Use Status: Never used Tobacco service: No Current occupational status: disabled Meds Allergies Allergy/AdvReac Type Severity Reaction Status Date / Time No Known Allergies Allergy Verified 04/01/24 13:17 Home Medications ?Medication ?Instructions ?Recorded ?Confirmed ?Last Taken ?Type aspirin 81 mg tablet,delayed 1 tab PO DAILY 12/07/21 03/29/24 03/25/24 History release carvedilol 6.25 mg tablet 1 tab PO DAILY 12/07/21 03/29/24 03/25/24 History insulin aspart U-100 100 unit/mL 30 unit subcut DAILY 04/22/22 12/21/23 Unknown History (3 mL) subcutaneous pen (Novolog FlexPen U-100 Insulin aspart) melatonin 3 mg tablet 1 tab PO BEDTIME PRN insomnia 08/18/22 12/21/23 Unknown History blood sugar diagnostic (FreeStyle #10 ea 11/19/22 12/21/23 Unknown History Lite Strips) blood-glucose meter,continuous 11/19/22 12/21/23 Unknown History (Dexcom G6 Lining [employer]am[employer]) lancets 28 gauge (FreeStyle 11/19/22 12/21/23 Unknown History Lancets) sacubitril 97 mg-valsartan 103 mg 1 tab PO DAILY 12/19/22 03/29/24 03/25/24 History tablet (Entresto) levothyroxine 137 mcg tablet 137 mcg PO DAILY 03/19/23 03/29/24 03/25/24 History metformin 500 mg tablet,extended 1,000 mg PO BID 03/19/23 03/29/24 03/25/24 History release 24 hr multivitamin with folic acid 400 0 tab PO 03/19/23 12/21/23 Unknown History mcg tablet (Daily-Fidelia (with folic acid)) pregabalin 75 mg capsule 75 mg PO DAILY 01/26/24 03/29/24 03/25/24 History rosuvastatin 20 mg tablet 20 mg PO BEDTIME 01/26/24 03/29/24 03/25/24 History spironolactone 25 mg tablet 25 mg PO DAILY 01/26/24 03/29/24 03/25/24 History baclofen 10 mg tablet 10 mg PO BEDTIME PRN muscle spasm 04/01/24 Unknown History Exam Pertinent Lab Results Pertinent Lab Results: Laboratory Tests 11/17/22 09/18/23 14:05 09:35 WBC 10.3 Hgb 11.7 L Hct 35.6 L Plt Count 388 Sodium 140 Potassium 4.7 Chloride 105 Carbon Dioxide 26 BUN 29 H Creatinine 0.99 Narrative Narrative: EKG 01/2024 NSR LAFB. LVH. ? septal infarct. No change c/w 11/2023 Assessment and Plan Assessment Anesthesia Assessment: Chart Reviewed Final Anesthetic Review Family History of Problems with Anesthesia: No History of Problems with Anesthesia: No
[2024-03-29 07:05] VITALS: BMI 31.3
[2024-03-29 07:28] LABS: Glucose, Whole Blood 160 mg/dL (60-115)
--- NOTE | 2024-03-29 07:38 | MHC.SHP ---
Pre-Procedural Eval Section A - 24 Hr Update-Section A only Date of Service: 03/29/24 The patient is an INPATIENT: No The patient has been examined within 24 hours of the surgical procedure. The History & Physical has been completed within 30 days and I have reviewed it.: No Section B - Complete if H&P > 30 days Chief Complaint: Dysphagia, epigastric pain, gastroparesis Relevant Family History (Specify if Yes): No Relevant Social History: None Present Medications: see Short Stay Collaborative assessment Medical History: Significant History (Restless legs syndrome (RLS) Neuropathy Palpitations CAD (coronary artery disease) Depression High cholesterol Celiac disease HTN (hypertension) Hypothyroid Insulin dependent type 1 diabetes mellitus) History of Previous Operations: Relevant previous surgery/procedure and date(s) (H/O bilateral breast reduction surgery History of carpal tunnel release of both wrists History of section H/O abdominoplasty Hx of colonoscopy History of arthroplasty of left knee H/O heart artery stent) Allergies: Allergies Allergy/AdvReac Type Severity Reaction Status Date / Time No Known Allergies Allergy Verified 02/18/24 13:05 Review of Systems Sugical H&P ROS: Negative: Constitution, Cardiovascular and Respiratory Exam Surgical H&P Exam: Normal: Heart, Normal: Lungs, Normal: Extremities and Normal: Abdomen Plan Diagnosis/Plan: Unchanged I have reviewed the history and physical and performed a pertinent physical examination on my patient. No changes have occurred unless specified. Time Spent With Patient Time: Total time managing care of this patient today ____ minutes.
[2024-03-29 07:39] VITALS: BP 140/62; PULSE 74; RESP 16; TEMP 36.1; O2SAT 96
[2024-03-29] MEDS: Lactated Ringers 1,000 ML 100 ML IVCONT (07:40)
--- NOTE | 2024-03-29 08:49 | P.CONAN_ITS ---
[facility] Active Problems Active Problems: All Active Problems Gastroparesis (Acute) Endometrial polyp (Acute) Family history of cirrhosis of liver (Acute) Upper abdominal pain (Acute) Abdominal bloating (Acute) Dysphagia (Acute) Uterine myoma (Acute) Vertigo (Acute) Cervicalgia (Acute) Osteoarthritis of right shoulder (Acute) Osteoarthritis of left acromioclavicular joint (Acute) Restless legs syndrome (RLS) (Acute) Neuropathy (Acute) GERD (gastroesophageal reflux disease) (Acute) Chronic idiopathic constipation (Acute) Postmenopausal bleeding (Acute) Type 2 diabetes mellitus (Acute) Chronic osteomyelitis (Acute) Pre-op exam (Acute) Tubular adenoma of colon (Acute) Coronary artery disease (Acute) JEVON (obstructive sleep apnea) (Acute) Paresthesia (Acute) Inguinal lymphadenopathy (Acute) HTN (hypertension) (Acute) Past Medical History Medical History Vertigo Cervicalgia Restless legs syndrome (RLS) Neuropathy Palpitations CAD (coronary artery disease) Depression High cholesterol Celiac disease HTN (hypertension) Hypothyroid Insulin dependent type 1 diabetes mellitus Functional capacity: independent ambulation Patient : No Family History Family History Mother Diabetes High blood pressure Father Diabetes High blood pressure Paternal Aunt Bone cancer Sister Breast cancer Sister Lymph node cancer Family history of problems with anesthesia: No Surgical History Surgical History H/O bilateral breast reduction surgery History of carpal tunnel release of both wrists History of section H/O abdominoplasty Hx of colonoscopy History of arthroplasty of left knee H/O heart artery stent History of Problems with Anesthesia: No Social History Social History Household Members: None Housing: Apartment Are you a primary aged or disabled care worker to a significant other at home: No Do you presently have visiting nurse or other home services: No Alcohol intake: never Patient Tobacco Use Status: Never used Tobacco Use of substances other than those prescribed or required for medical reasons: No Are you DNR?: No Advance Directives: No Advance Directives Information Provided: Yes service: No Current occupational status: disabled Meds Allergies Allergy/AdvReac Type Severity Reaction Status Date / Time No Known Allergies Allergy Verified 02/18/24 13:05 Active Medications: Current Medications Lactated Ringer's (Lr) 1,000 mls @ 100 mls/hr IVCONT .Q10H ALO Last Admin: 03/29/24 07:40 Dose: 100 mls/hr Home Medications ?Medication ?Instructions ?Recorded ?Confirmed ?Last Taken ?Type aspirin 81 mg tablet,delayed 1 tab PO DAILY 12/07/21 03/29/24 03/25/24 History release carvedilol 6.25 mg tablet 1 tab PO DAILY 12/07/21 03/29/24 03/25/24 History insulin glargine 100 unit/mL (3 30 unit subcut BEDTIME 12/07/21 12/21/23 12/06/21 History mL) subcutaneous pen (Lantus Solostar U-100 Insulin) insulin aspart U-100 100 unit/mL 30 unit subcut DAILY 04/22/22 12/21/23 Unknown History (3 mL) subcutaneous pen (Novolog FlexPen U-100 Insulin aspart) melatonin 3 mg tablet 1 tab PO BEDTIME PRN insomnia 08/18/22 12/21/23 Unknown History blood sugar diagnostic (FreeStyle #10 ea 11/19/22 12/21/23 Unknown History Lite Strips) blood-glucose meter,continuous 11/19/22 12/21/23 Unknown History (Dexcom G6 [employer]) lancets 28 gauge (FreeStyle 11/19/22 12/21/23 Unknown History Lancets) sacubitril 97 mg-valsartan 103 mg 1 tab PO DAILY 12/19/22 03/29/24 03/25/24 History tablet (Entresto) levothyroxine 137 mcg tablet 137 mcg PO DAILY 03/19/23 03/29/24 03/25/24 History metformin 500 mg tablet,extended 1,000 mg PO BID 03/19/23 03/29/24 03/25/24 History release 24 hr multivitamin with folic acid 400 0 tab PO 03/19/23 12/21/23 Unknown History mcg tablet (Daily-Fidelia (with folic acid)) pregabalin 75 mg capsule 75 mg PO DAILY 01/26/24 03/29/24 03/25/24 History rosuvastatin 20 mg tablet 20 mg PO BEDTIME 01/26/24 03/29/24 03/25/24 History spironolactone 25 mg tablet 25 mg PO DAILY 01/26/24 03/29/24 03/25/24 History Exam Height,Weight and Vital Signs: Height 5 ft 7 in Weight 90.718 kg Last Vital Signs Temp 97.0 F 03/29/24 07:39 Pulse 74 03/29/24 07:39 Resp 16 03/29/24 07:39 BP 140/62 H 03/29/24 07:39 Pulse Ox 96 03/29/24 07:39 O2 Del Method Room Air 03/29/24 07:39 Pertinent Lab Results Pertinent Lab Results: Laboratory Tests 03/29/24 07:25 POC Glucose 160 H Airway Mallampati Class: III TM Dist: >3cm Neck ROM: Full Heart: RRR Lungs: CTA Assessment and Plan Assessment Anesthesia Assessment: Anesthesia Plan Discussed Final Anesthetic Review Family History of Problems with Anesthesia: No History of Problems with Anesthesia: No NPO: Yes ASA Class: II Final Preanesthetic Review: Meds/Allgs Chart Reviewed, Consent Obtained/Reviewed and Anes Risks/Benef Reviewed Patient Risk: Low Procedure Risk: Low Anesthetic Plan Anesthetic Plan: MAC: Disposition: Standard PACU
--- NOTE | 2024-03-29 09:00 | W.PM.OPN ---
Operative Note Operative Note Date of Service: 03/29/24 Narrative: FLEXIBLE TRANSORAL UPPER GASTROINTESTINAL ENDOSCOPY WITH BIOPSIES ESOPHAGEAL BALLOON DILATION Pre-op diagnosis: GERD, Epigastric pain, Dysphagia, gastroparesis Post-op diagnosis: GERD, Hiatal hernia, Schatzki's ring, Gastritis, gastric antral nodules and duodenitis Endoscopist:? Joaquin Valle MD Anesthesia:?MAC UPPER ENDOSCOPY Consent: Indications for the procedure and potential complications of bleeding, perforation, reaction to medications and missed diagnosis were discussed with the patient and informed consent was obtained. Instrument: Olympus GIF H 190 mid size upper endoscope Monitoring: Vital signs and clinical assessment, continuous EKG monitoring, Pulse oximetry, Carbon Dioxide monitoring and blood pressure monitoring were done throughout the procedure. Procedure: The patient was placed in the left lateral decubitis position and pre-procedure medications were administered and a bite block was placed. The endoscope was inserted into the mouth and advanced under direct vision to the third part of duodenum. A careful inspection was made as the upper endoscope was withdrawn including a retroflexed examination of the proximal stomach; Findings and interventions are described below. Findings: Larynx: Normal Esophagus: Mildly tortuous esophagus with a non-obstructing Schatzki's ring at GE junction. GE junction at 36 cms, small hiatal hernia 36 to 38 cms. Balloon dilation of distal esophagus was performed with a 20 mm (60 F) CRE balloon for 60 seconds Stomach: Moderate diffuse gastric erythema - biopsies were obtained from the gastric body and antrum. A few 8-10 mm benign appearing nodules with central erosions in the antrum - biopsied. Grade 3 flap valve on retroflexed examination of the cardia. Duodenum: Duodenitis in the bulb with superficial erosions. Normal bulb and descending duodenum - biopsies were obtained from 3rd part of duodenum to check for celiac sprue Intervention: Biopsies and esophageal balloon dilation as noted above Impression and Post Procedure Diagnosis: Endoscopy Findings: ESOPHAGUS: Mildly tortuous esophagus. Small hiatal hernia with non-obstructing Schatzki's ring. Balloon dilation of distal esophagus was performed with a 20 mm (60 F) CRE balloon for 60 seconds STOMACH: Nodular appearing mucosa in the gastric body and fundus - biopsied. Moderate diffuse gastric erythema - biopsies were obtained from the antrum. Plan: Pt has a FU appointment on 03/29 and 04/19/24 with Brenda Pena NP. Above findings were reviewed with the patient and relevant handouts were given and the discharge area.
[2024-03-29 09:06] VITALS: BP 116/54; PULSE 73; RESP 16; TEMP 36.1; O2SAT 96
[2024-03-29 09:21] VITALS: BP 126/60; PULSE 67; RESP 16; TEMP 36.1; O2SAT 96
[2024-03-29 09:39] LABS: Glucose, Whole Blood 161 mg/dL (60-115)
--- NOTE | 2024-03-29 11:14 | HO.POSTANES ---
Post Anesthesia Evaluation Post Anesthesia Evaluation Date of Service: 03/29/24 Vital Signs: Vital Signs Temp Pulse Resp BP Pulse Ox O2 Del Method 03/29/24 09:21 97 F 67 16 126/60 96 Room Air 03/29/24 09:06 97 F 73 16 116/54 L 96 Room Air 03/29/24 07:39 97.0 F 74 16 140/62 H 96 Room Air Anesthesia: Monitored Mental Status: Awake Pain Control: Satisfactory Nausea/Vomiting: None Hydration: Adequate Anesthesia-Related Issues: No Anes. Related Issues
== END 2024-03-29 10:46 | disposition home or self-care (01) ==
PROVIDERS: PCP Nurse Practitioner Primary Care; Visit Provider Internal Medicine Gastroenterology
PROC: 0DJ08ZZ Inspection of Upper Intestinal Tract, Via Natural or Artificial Opening Endoscopic (ICD-10-PCS; CPT 43235; principal; 2024-03-29 08:20)
DX: R13.10 Dysphagia, unspecified (principal); K21.9 Gastro-esophageal reflux disease without esophagitis; R10.13 Epigastric pain; K22.2 Esophageal obstruction; K44.9 Diaphragmatic hernia without obstruction or gangrene; K29.50 Unspecified chronic gastritis without bleeding; K31.89 Other diseases of stomach and duodenum; K29.80 Duodenitis without bleeding; E10.43 Type 1 diabetes mellitus with diabetic autonomic (poly)neuropathy; K31.84 Gastroparesis; F32.A Depression, unspecified; G47.33 Obstructive sleep apnea (adult) (pediatric); I10 Essential (primary) hypertension; E78.00 Pure hypercholesterolemia, unspecified; I25.10 Atherosclerotic heart disease of native coronary artery without angina pectoris; Z95.5 Presence of coronary angioplasty implant and graft; Z79.4 Long term (current) use of insulin; Z79.84 Long term (current) use of oral hypoglycemic drugs; Z79.82 Long term (current) use of aspirin; Z79.899 Other long term (current) drug therapy; Z98.890 Other specified postprocedural states; Z99.89 Dependence on other enabling machines and devices
CPT/HCPCS: 43249; 43239; 82947; 88305; 88313; 88342; C1726; J2704

== ENCOUNTER → 2024-03-29 06:37 | Outpatient (BNV) | payer OTHER, SELFPAY | PROVIDERS: PCP Nurse Practitioner Primary Care; Visit Provider Internal Medicine Gastroenterology | DX: K21.9 Gastro-esophageal reflux disease without esophagitis (principal); K22.2 Esophageal obstruction; K29.70 Gastritis, unspecified, without bleeding; K31.7 Polyp of stomach and duodenum; K29.80 Duodenitis without bleeding | CPT/HCPCS: 43239; 43249 ==

== ENCOUNTER 2024-04-01 13:12 | Outpatient (AMB) | payer OTHER, SELFPAY ==
--- NOTE | 2024-04-01 13:16 | A.OFFVIS_ITS ---
Vital Signs 04/01/24 13:19 Height 5 ft 7 in Weight 198 lb 6.656 oz BMI 31.1 BP 114/58 L Blood Pressure Location Rt brachial Position Sitting Pulse 81 Pulse Source Pulse Oximeter Intake Visit Reasons: T2DM/LVM Intake Note: New Patient presents today to established treatment for Type 2 Diabetes Mellitus: Most recent Eye Exam: 10/2023 Most recent Podiatry Exam: Does not see a [facility] Most recent HbA1c: 7.6%, 04/01/2024 Random Glucose- 80mg/dL, Today Vertical Boring Mill Operator Required: Yes Vertical Boring Mill Operator Language: Hide Selector Services: Vertical Boring Mill Operator Present Vertical Boring Mill Operator Name: Jazlyn Hackett Information Interpreted: non-clinical & clinical Accompanied by: Self / Same As Patient Allergies No Known Allergies Allergy (Verified 04/01/24 13:17) HPI Comments Details: 67 YO F who is seen in consultation for T2DM at the request of PCP. Initially diagnosed with T2DM in 20 yrs . Was initially started on treatment with metformin 1000 mg BID Last A1C 11/07 7.7% Current regimen metformin 1000 mg BID Lantus 30 units pm Novolog 20-30 units premeals (mostly 30) . Mounjaro 5 mg Qwkly Jardiance 25 mg QD Dexcom average glucose: [187 ] Glucose Managment indicator 7.8 % TIme in range: Ten % very high (above 250) 42 % high ?(181-250) 48 % in range ?(70-180] 0 % low (69-55) 0 % ?very low (below 54) She is consistently using the sensor Details [readings overnight are well controlled, her readings are elevated from 12:00pm and on ] Treats lows with diabetic shakes. Checks sugar after to ensure it is rising. Treats and checks 1 hr after correction . Family history of T2DM in brothers and sisters. Has eyes checked yearly, last eye exam 11/2023 , has retinopathy stable has neuropathy, sees podiatry. + numbness some cramps Denies nephropathy, on SAROJ/ARB. . had an infection in one toe now resolved sees weekly Has HLD, on statin. Has CAD. [facility] Medical History Vertigo Cervicalgia Restless legs syndrome (RLS) Neuropathy Palpitations CAD (coronary artery disease) Depression High cholesterol Celiac disease HTN (hypertension) Hypothyroid Insulin dependent type 1 diabetes mellitus Surgical History H/O bilateral breast reduction surgery History of carpal tunnel release of both wrists History of section H/O abdominoplasty Hx of colonoscopy History of arthroplasty of left knee H/O heart artery stent Family History Mother Diabetes High blood pressure Father Diabetes High blood pressure Paternal Aunt Bone cancer Sister Breast cancer Sister Lymph node cancer Social History Household Members: None Housing: Apartment Are you a primary manager home healthcare to a significant other at home: No Do you presently have visiting nurse or other home services: No Alcohol intake: never Patient Tobacco Use Status: Never used Tobacco service: No Current occupational status: disabled Physical Exam Vital Signs: Last Vital Signs Pulse 81 04/01/24 13:19 BP 114/58 L 04/01/24 13:19 BMI result Body Mass Index 31.1 Results AMB Hemoglobin A1c AMB Hemoglobin A1c 7.6 % Last Edit by LAKEISHA Cerda on 04/01/24 13:50 Results Reviewed Results Reviewed: Laboratory Last Values Glucose (Clinic) 80 mg/dL (60-115) 04/01/24 13:27 Laboratory Tests 04/03/23 04/23/23 05/15/23 08:38 13:16 08:54 Potassium Creatinine Hgb A1c (Clinic) Calcium 9.9 Total Bilirubin 0.4 AST 21 ALT 22 Triglycerides 153 Cholesterol 138 LDL Cholesterol, Calc 65 HDL Cholesterol 43 TSH 1.87 Urine Creatinine Urine Microalbumin Microalb/Creat Ratio 09/18/23 09/23/23 10/26/23 09:35 11:34 09:47 Potassium 4.7 Creatinine 0.99 Hgb A1c (Clinic) 7.7 H Calcium 10.4 H Total Bilirubin AST ALT Triglycerides 130 Cholesterol 132 LDL Cholesterol, Calc 64 HDL Cholesterol 42 TSH Urine Creatinine Urine Microalbumin Microalb/Creat Ratio 10/26/23 09:50 Potassium Creatinine Hgb A1c (Clinic) Calcium Total Bilirubin AST ALT Triglycerides Cholesterol LDL Cholesterol, Calc HDL Cholesterol TSH Urine Creatinine 165.50 Urine Microalbumin 133.0 Microalb/Creat Ratio 80.3 H Assessment & Plan Assessment & Plan (1) Type 2 diabetes mellitus: Code(s): E11.9 - Type 2 diabetes mellitus without complications Category: Medical Plan: A1c is at target at 7.6%. She is well controlled overnight but are readings start to increase after 12:00 The patient was advised to continue all current medications with the exception of stopping Lantus and starting Tresiba 34 units. She does have a history of gastroparesis had recent swallowing study. She was off Mounjaro for a few weeks and did not notice any change in her GI symptoms but becamel substantially more hungry and would like to stay on Mounjaro. Would not recommend increasing the Mounjaro. Will obtain blood work prior to next visit in 4 months. Patient teaching today: The patient was counseled to always carry a source of sugar and on the rule of 15's: Take 3 glucose tablets and repeat again in 15 minutes if blood sugar is not in normal range. Continue to repeat every 15 minutes until blood sugar is normal. The patient was counseled to achieve a target A1C of 7% (154 avg). Fasting blood sugars should be 90-130 in the morning and less than 180 two hours after meals. Reviewed the relationship between poor diabetic control and the development of complications If patient develops significant illness with vomiting or fever, keep hydrated and temporarily stop metformin. Notify Endo if sugars are over 250. Orders: Orders AMB Hemoglobin A1c Today E11.9 - Type 2 diabetes mellitus without complications Hemoglobin A1c 4 Months E11.9 - Type 2 diabetes mellitus without complications Thyroid Stimulating Hormone 4 Months E11.9 - Type 2 diabetes mellitus without complications Creatinine Urine 4 Months E11.9 - Type 2 diabetes mellitus without complications Lipid Panel 4 Months E11.9 - Type 2 diabetes mellitus without complications Medications: New insulin degludec (Tresiba FlexTouch U-200 insulin) 34 units (0.17 mL) subcut BEDTIME 30 days 5.1 mL 11RF E11.9 - Type 2 diabetes mellitus without complications Coding Level of Care Code Tele Est Pt Level 5 (17528) Complex EM visit Add On G2211 Diagnoses Type 2 diabetes mellitus E11.9 Time Spent (min) 45 Comment Time spent reviewing labs/previous provider notes, face to face, chart documentation
[2024-04-01 13:19] VITALS: BP 114/58; PULSE 81; BMI 31.1
[2024-04-01 13:31] LABS: Glucose, Whole Blood 80 mg/dL (60-115)
== END 2024-04-01 13:54 | disposition home or self-care (01) ==
PROVIDERS: PCP Nurse Practitioner Primary Care; Visit Provider Nurse Practitioner Adult Health
DX: E11.9 Type 2 diabetes mellitus without complications (principal)
CPT/HCPCS: 99215; G2211

== ENCOUNTER → 2024-04-01 13:12 | Outpatient (BNVA) | payer OTHER, SELFPAY | PROVIDERS: PCP Nurse Practitioner Primary Care; Visit Provider Nurse Practitioner Adult Health | DX: E11.9 Type 2 diabetes mellitus without complications (principal); Z79.84 Long term (current) use of oral hypoglycemic drugs; Z79.4 Long term (current) use of insulin | CPT/HCPCS: 82947; 83036; 99212 ==

== ENCOUNTER 2024-04-05 09:23 | Outpatient (REF) | payer OTHER, SELFPAY ==
--- NOTE | 2024-04-05 09:27 | EMG_ITS ---
Left tibial and peroneal motor studies were performed. Left sural, superficial peroneal, and median and lateral mixed plantars. Sensory studies were performed. Tibial H-reflex was obtained and paraspinal muscles were tested with a needle. 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 Formal neurology consultation is recommended to rule out treatable neuropathies. MD SANA Villanueva/CHRISTELLE / [phone]
== END 2024-04-05 09:24 | disposition home or self-care (01) ==
LOC: HO.NEURO 09:23
PROVIDERS: PCP Nurse Practitioner Primary Care; Visit Provider Nurse Practitioner Primary Care
DX: M79.672 Pain in left foot (principal); M62.562 Muscle wasting and atrophy, not elsewhere classified, left lower leg; E11.42 Type 2 diabetes mellitus with diabetic polyneuropathy
CPT/HCPCS: 95886; 95910

== ENCOUNTER 2024-04-11 07:39 | Outpatient (AMB) | payer OTHER, SELFPAY ==
--- NOTE | 2024-04-11 07:39 | A.OFFVIS_ITS ---
Intake Visit Reasons: Follow up - Conf Intake Note: Patient presents for follow up. was using machine but got sick with a bad cough which she still battling the machine air was making it worst today she has ear ache. Integrity Engineer Required: Yes Integrity Engineer Name: Kayli roque Information Interpreted: non-clinical & clinical Allergies No Known Allergies Allergy (Verified 04/01/24 13:17) HPI Comments Details: 68y/o left handed female with h/o long standing diabetes for over 30 years comes for follow up of neuropathy and restless legs syndrome. she is on gabapentin 300mg qhs ( could not increase to 600mg as she woke up drowsy )and alpha lipoic acid .Her Hg A1C is 7.6 now.she still wakes up in the middle of the night with pain in her legs. she also neck pain and headaches.she has 2-3 headaches a week.she has photophobia , phonophobia, nausea and feels dizzy. she reports numbness and tingling in distal lower extremities for over 10 years . 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 she still has numbness, squeezing , tingling in bilateral feet worse when she is resting . The symptoms are worse in evening and also wakes her up from sleep. she also reports weakness of her left leg . she also has back pain . No urinary difficulties. she also has mild numbness in her hands now. In 2017 she had fracture of her left foot and has been weak and painful since then . she also has bone spurs.she also reports swelling of his left foot. [facility] Medical History Vertigo Cervicalgia Restless legs syndrome (RLS) Neuropathy Palpitations CAD (coronary artery disease) Depression High cholesterol Celiac disease HTN (hypertension) Hypothyroid Insulin dependent type 1 diabetes mellitus Surgical History H/O bilateral breast reduction surgery History of carpal tunnel release of both wrists History of section H/O abdominoplasty Hx of colonoscopy History of arthroplasty of left knee H/O heart artery stent Family History Mother Diabetes High blood pressure Father Diabetes High blood pressure Paternal Aunt Bone cancer Sister Breast cancer Sister Lymph node cancer Social History Household Members: None Housing: Apartment Are you a primary manager long term care to a significant other at home: No Do you presently have visiting nurse or other home services: No Alcohol intake: never Patient Tobacco Use Status: Never used Tobacco service: No Current occupational status: disabled Telehealth Telehealth Telehealth Platform: Telephone Location of provider rendering services: practice address Location of patient: address on file Patient Identification confirmed using: Name, : Yes Telehealth method: voice only Patient verbally consented to treatment: Yes Patient verbally consented to billing insurance company: Yes Patient informed of any privacy concerns related to visit: Yes Minutes spent on Phone/Video with Pt.: 16 Assessment & Plan Assessment & Plan (1) Neuropathy: Comment: nelli diabetic with component of 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 Alpha lipoic acid 300mg bid Baclofen 10mg qhs Coding Level of Care Code Tele Est Pt Level 4 (94652) Diagnoses Neuropathy G62.9 Restless legs syndrome (RLS) G25.81 Cervicalgia M54.2 Vertigo R42 Comment 6 mths with Neha
== END 2024-04-11 15:15 | disposition home or self-care (01) ==
LOC: HO.HSMS 07:39
PROVIDERS: PCP Nurse Practitioner Primary Care; Visit Provider Psychiatry & Neurology Neurology
DX: G62.9 Polyneuropathy, unspecified (principal); G25.81 Restless legs syndrome; M54.2 Cervicalgia; R42 Dizziness and giddiness
CPT/HCPCS: 99442

== ENCOUNTER → 2024-04-11 07:39 | Outpatient (BNVA) | payer OTHER, SELFPAY | PROVIDERS: PCP Nurse Practitioner Primary Care; Visit Provider Psychiatry & Neurology Neurology ==

== ENCOUNTER 2024-04-19 15:27 | Outpatient (AMB) | payer OTHER, SELFPAY ==
--- NOTE | 2024-04-19 15:32 | A.OFFVIS_ITS ---
Vital Signs 04/19/24 15:33 Height 5 ft 7 in Weight 198 lb 13.711 oz BMI 31.1 BP 99/50 L Blood Pressure Location Lt brachial Position Sitting Pulse 76 Intake Visit Reasons: S/P EGD, Dr. Valle Intake Note: Patient in office today in follow up s/p EGD. CC: Patient states that she continues to have cough and feeling like food gets stuck in her throat. Sld Educational Aide Required: Yes Accompanied by: Self / Same As Patient Allergies No Known Allergies Allergy (Verified 04/19/24 15:43) HPI HPI S/P EGD, Dr. Valle: Details: Assessment & Plan (1) Chronic idiopathic constipation: Code(s): K59.04 - Chronic idiopathic constipation Category: Medical (2) GERD (gastroesophageal reflux disease): Code(s): K21.9 - Gastro-esophageal reflux disease without esophagitis Category: Medical (3) Dysphagia: Code(s): R13.10 - Dysphagia, unspecified Category: Medical (4) Abdominal bloating: Code(s): R14.0 - Abdominal distension (gaseous) Category: Medical (5) Upper abdominal pain: Code(s): R10.10 - Upper abdominal pain, unspecified Category: Medical (6) Family history of cirrhosis of liver: Comment: US ABDOMEN 10/28/22 FINDINGS: Study limited due to body habitus. PANCREAS: Obscured by bowel gas. ABDOMINAL AORTA: Normal caliber proximal aorta. Mid and distal aorta is obscured by bowel gas. INFERIOR VENA CAVA: Visualized portions are normal. LIVER: Mildly echogenic liver parenchyma. The liver contour is normal. No focal hepatic lesion. There is no intrahepatic biliary duct dilatation seen. GALLBLADDER: Normal. The gallbladder is physiologically distended without evidence of stones, sludge, polyps, wall thickening or pericholecystic fluid. COMMON BILE DUCT: Normal in caliber measuring 0.3 cm in diameter. RIGHT KIDNEY: Normal. No hydronephrosis. No renal calculi or focal parenchymal lesions. The kidney measures 11.3 cm in maximum dimension. LEFT KIDNEY: Normal. No hydronephrosis. No renal calculi or focal parenchymal lesions. The kidney measures 11.0 cm in maximum dimension. SPLEEN: Normal. The spleen measures 8.8 cm in maximum dimension. FREE FLUID: None. US/US abdomen complete IMPRESSION: 1. There is generalized increase in hepatic echotexture, consistent with fatty infiltration or hepatocellular disease. Please correlate clinically. No focal hepatic mass or intrahepatic biliary duct dilatation is seen. 2. Pancreas obscured by bowel gas. 3. Partially visualized ., Detailed above. Code(s): Z83.79 - Family history of other diseases of the digestive system Category: Medical Plan ESTONIAN #[id number] (not good connection), [id number] Her stomach has been giving her problems with gastric pain with everything she eats. This is not allowing her to sleep well. This has exacerbated recently, This has been over the past few months. She will have nausea and dry heaves and she has dyspepsia and borborygus. She will frequently have to vomit food back up. At times she feels like there is a ball in my stomach. She has occasional early satiety, but she feels like when I squeeze my stomach it feels like the flood is not getting processed. She has a lot of gas and bloating. She is moving her bowels daily but only in small amounts. She is not taking the Linzess every day because she will be in the bathroom all day and then I would not be able to leave the house. She is worried about the hernia in my esophagus that I have had for years adn I would like that checked. She is having dysphagia at the [facility] area and she has to drink a lot of water to get it to pass. I will order an EGD. She also has an intermittent pain under the right rib that is aching. She questions GB but she had an US in October that did not show gallstones, so will get a HIDA scan. I think a GES is in order. EGD as well, had colonoscopy in 2021. She continues on o2o 40mg qd and at times takes 2 at a time which helps the sx a little. She is worried about FHX cirrhosis but they were ETOH drinkers and she does not imbibe - but will get liver panel as she ahd not had one since 2022. ROV 4 weeks. Eval pantoprazole and mylanta. Orders: Orders FL barium swallow 01/26/24 R13.10 - Dysphagia, unspecified NM gastric emptying study 01/26/24 R14.0 - Abdominal distension (gaseous), R10.10 - Upper abdominal pain, unspecified TSH reflex Free T4 01/26/24 R10.10 - Upper abdominal pain, unspecified, Z83.79 - Family history of other diseases of the digestive system EGD with [facility] - GI Use Only 01/26/24 R13.10 - Dysphagia, unspecified NM hepatobiliary w pharm 01/26/24 R14.0 - Abdominal distension (gaseous), R10.10 - Upper abdominal pain, unspecified Comprehensive Met. Panel 01/26/24 R10.10 - Upper abdominal pain, unspecified, Z83.79 - Family history of other diseases of the digestive system Medications: New pantoprazole (Protonix) 40 mg PO BID 60 tabs 6RF 30 days R13.10 - Dysphagia, unspecified, K21.9 - Gastro-esophageal reflux disease without esophagitis alum-mag hydroxide-simeth 400-400-40 mg/5 mL (Mylanta Maximum Strength) 5 mL PO QID PRN 3,000 mL 3RF indigestion R14.0 - Abdominal distension (gaseous) Discontinued omeprazole Discontinued Reason: Doctor's Order 40 mg PO DAILY 30 caps 6RF LABS: TSH not obtained HIDA SCAN 02/24/24 IMPRESSION: Visualization of the gallbladder is evidence of a patent cystic duct and strong evidence against the diagnosis of acute cholecystitis. The common bile duct is patent. Gallbladder emptying and ejection fraction are normal. Liver function appears normal. By report no significant change since 11/08/2009. GASTRIC EMPTYING STUDY 03/08/24 IMPRESSION: Abnormal study. There is severe retention of solid food in the stomach at 4 hours. MODIFIED BARIUM SWALLOW 03/22/24 FINDINGS: Lateral cine images of the oropharynx and hypopharynx demonstrate normal swallow mechanism with normal epiglottic inversion and soft palate elevation. There is trace laryngeal penetration with thick barium. No tracheal penetration, glottic or subglottic aspiration identified. No nasopharyngeal reflux present. A small pharyngeal pouch is present. Hypopharyngeal structures appear normal without evidence of mass or diverticulum. Mild cricopharyngeal achalasia present. Dual and single contrast images of the esophagus demonstrate normal caliber, contour, and mucosal pattern. No evidence of stricture, mass, or ulcerations identified. Esophageal peristalsis was mildly disorganized. A nonobstructive Schatzki's ring is present. A small type I hiatal hernia is present. No significant gastroesophageal reflux was seen during the course of the examination and on reflux views. Dual contrast and single contrast images of the stomach demonstrated a normal contour. The gastric rugal folds have a mildly thickened appearance. There are multiple areas of contrast pooling in the fundus and body the stomach that may represent small superficial aphthous ulcers. There is to and fro motion of a mixed contrast/density in the stomach that may represents retained food. Contrast freely passed into the gastric antrum and duodenal bulb without delay. Single and air-contrast images of the duodenal bulb demonstrate no abnormality. The duodenal sweep has a normal appearance, course, and mucosal fold appearance. The imaged proximal jejunum has a normal fold pattern and caliber. FLUOROSCOPY TIME: 3 minutes 30 seconds Number of Spot Images: 11 Number of Cine: 14 DOSE AREA PRODUCT: 2645 uGy-m2 (microgray-meter squared) FL/FL barium swallow with air IMPRESSION: 1. Trace pharyngeal penetration with thick barium. 2. Small pharyngeal pouch 3. Mild cricopharyngeal achalasia 4. Mildly disorganized esophageal peristalsis 5. Nonobstructive Schatzki's ring 6. Small type I hiatal hernia 7. Thickened gastric rugal folds. In addition there are multiple tiny areas of contrast pooling in the fundus and body the stomach. These findings are suggestive of erosive gastritis. Recommend correlation with EGD. 8. To and fro motion of a mixed contrast/density in the stomach that may represent retained food. EGD 03/29/24 Findings: Larynx: Normal Esophagus: Mildly tortuous esophagus with a non-obstructing Schatzki's ring at GE junction. GE junction at 36 cms, small hiatal hernia 36 to 38 cms. Balloon dilation of distal esophagus was performed with a 20 mm (60 F) CRE balloon for 60 seconds Stomach: Moderate diffuse gastric erythema - biopsies were obtained from the gastric body and antrum. A few 8-10 mm benign appearing nodules with central erosions in the antrum - biopsied. Grade 3 flap valve on retroflexed examination of the cardia. Duodenum: Duodenitis in the bulb with superficial erosions. Normal bulb and descending duodenum - biopsies were obtained from 3rd part of duodenum to check for celiac sprue Intervention: Biopsies and esophageal balloon dilation as noted above Impression and Post Procedure Diagnosis: Endoscopy Findings: ESOPHAGUS: Mildly tortuous esophagus. Small hiatal hernia with non-obstructing Schatzki's ring. Balloon dilation of distal esophagus was performed with a 20 mm (60 F) CRE balloon for 60 seconds STOMACH: Nodular appearing mucosa in the gastric body and fundus - biopsied. Moderate diffuse gastric erythema - biopsies were obtained from the antrum. BIOPSY Received: 03/29/24 Diagnosis A. Small bowel, biopsy: Small intestinal mucosa within normal limits; negative for celiac disease. B. Stomach, antrum, biopsy: Antral-type and oxyntic mucosa with moderate chronic inactive inflammation; no Helicobacter organisms seen. C. Stomach, antral nodule, biopsy: Antral-type mucosa with mild chronic inactive inflammation and surface hyperplastic changes; no Helicobacter organisms seen. D. Stomach, body, biopsy: Oxyntic mucosa with mild chronic inactive inflamm ation; no Helicobacter organisms seen. CORRESPONDENCE On 03/09/24 @ 12:03 Brenda Pena Wrote To Brenda Pena (2) Please call this patient and advised her that her stomach is not emptying well. This is likely from her diabetes and from her Mounjaro. I am sending a medication, metoclopramide, that she should take 4 times a day at breakfast time lunchtime suffer time and bedtime whether she eats or not. If she has any adverse effects such as tremor then she should discontinue the medication and contact me. Medication Orders metoclopramide HCl 5 mg PO QIDACHS 120 tabs 6RF New TODAY'S VISIT ESTONIAN #[id number] She received the reglan but is not taking it qid as instructed - she says I read the possible s/e and was afraid that it would interfere with my cardiac medications. I instruct her that this is not so, and it will be important to pace her stomach to keep things moving and prevent reflux and choking. She says she is very sensitive to medications, and if she truely can not tolerate it she will have to be extremely careful about choking as there is little I can do to treat the gastroparesis and its contribution to reflux and choking - especially in conjunction with her marina. SHe tells me she has had several choking episodes especially on meats, and so this proves my point. She also has very poor dentition of her back teeth and admits this causes chewing problems. We discuss eating very slowly, cutting think smaller, eating softer foods and being careful when conversing while eating as this can confuse the epiglottis and cause choking. We again review the possible s/e of the reglan, and that most of these are very rare except at higher doses over 80mg/day and even then they are quite rare. If she really has problems we will try to address this, but she should try it first. She asks me about her liver, but I do not have blood work so I can't really answer this. I encourage her to go for the chem panel and the TSH. She continues on her pantoprazole, mylanta, LInzess, her BM's are still uneven and inconsistent and taking the reglan will also help this. In the past she has not taken the LInzess every day r/t moving my bowels all day, and my attempts to educate her that taking it daily would help alleviate this - but she can't seem to grasp this. 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 Obviously this is not a big problem and she can just do the blood work whenever she finds it convenient. I really do not have any severe worries that there is any big problems with her liver. ROV 4 mos. [facility] Medical History Vertigo Cervicalgia Restless legs syndrome (RLS) Neuropathy Palpitations CAD (coronary artery disease) Depression High cholesterol Celiac disease HTN (hypertension) Hypothyroid Insulin dependent type 1 diabetes mellitus Surgical History H/O bilateral breast reduction surgery History of carpal tunnel release of both wrists History of section H/O abdominoplasty Hx of colonoscopy History of arthroplasty of left knee H/O heart artery stent Family History Mother Diabetes High blood pressure Father Diabetes High blood pressure Paternal Aunt Bone cancer Sister Breast cancer Sister Lymph node cancer Social History Household Members: None Housing: Apartment Are you a primary intensive care nurse to a significant other at home: No Do you presently have visiting nurse or other home services: No Alcohol intake: never Patient Tobacco Use Status: Never used Tobacco service: No Current occupational status: disabled Review of Systems Const Denies fatigue, Denies fever(s), Reports headache(s), Denies night sweats, Denies poor appetite and Denies weight loss Eyes Details: Glasses Reports requires corrective lenses ENT Reports Normal hearing present, Denies dental pain, Reports dysphagia, Reports headache(s), Denies hearing loss, Denies mouth pain, Reports neck pain, Denies odynophagia, Denies throat swelling, Denies tongue swelling and Reports other (Dentition adequate) Card Reports chest pain Resp Reports no additional complaints GI Details: Denies abdominal pain, Denies melena, Reports bloating, Denies hematochezia, Reports constipation, Denies GI cramping, Reports dysphagia, Denies excessive flatus, Reports early satiety, Reports heartburn, Denies diarrhea, Denies nausea, Denies odynophagia, Denies vomiting and Denies hematemesis Musc Reports neck pain Skin/Breast Denies pruritus, Denies lesions, Denies rash and Denies jaundice Neuro Reports Normal hearing present, Denies Abnormal speech present and Reports h eadache(s) Endo Denies fatigue Aller/Immun Denies throat swelling and Denies tongue swelling Physical Exam Vital Signs: Last Vital Signs Pulse 76 04/19/24 15:33 BP 99/50 L 04/19/24 15:33 BMI result Body Mass Index 31.1 Const General: cooperative, no acute distress, well developed and well groomed Nutritional Appearance: well nourished and obese Orientation/consciousness: oriented to person, oriented to place and oriented to time Limitations: language barrier HEENT Head: Yes normocephalic and Yes atraumatic Eyes General: appearance normal, both eyes and all related structures Pupils: Equal, round and reactive pupils present Neck Neck: Yes normal visual inspection and Yes no lymphadenopathy Thyroid: Thyroid normal Resp Effort & Inspection: normal respiratory effort and able to speak in complete sentences Auscultation: clear to auscultation bilaterally Cardio Rate: regular rate Rhythm: regular rhythm Heart sounds: Normal, physiologic split S2 sound present Peripheral pulses: radial pulses present and posterior tibial pulses present GI Inspection: No distended, No Abdominal panniculus present and Yes obesity Palpation (GI): Soft to palpation, nontender, no guarding, not rigid and No hepatosplenomegaly present Percussion: Yes normal to percussion Auscultation: normal bowel sounds Rectal Exam - Female: deferred Skin General skin exam: no rashes or lesions noted, turgor normal, skin not dry, no jaundice, No spider nevi and no striae Rashes: no rashes Nails: normal Neuro General: oriented to person, oriented to place and oriented to time Cranial nerves: Yes Equal, round and reactive pupils present and Yes Normal hearing present Speech: No Abnormal speech present Extrem General: Yes normal to inspection, No clubbing, No cyanosis and No edema Psych Appearance: grossly normal and well kempt Mental Status: mental status grossly normal Speech and movement: Normal speech and movement present Affect: normal affect Attitude: cooperative Thought process: Normal thought process present and not confabulating Thought content: Normal thought content present Insight: Limited insight present (Psych) Judgement: Limited judgement present (Psych) Results Reviewed Results Reviewed: LABS: TSH not obtained HIDA SCAN 02/24/24 IMPRESSION: Visualization of the gallbladder is evidence of a patent cystic duct and strong evidence against the diagnosis of acute cholecystitis. The common bile duct is patent. Gallbladder emptying and ejection fraction are normal. Liver function appears normal. By report no significant change since 11/08/2009. GASTRIC EMPTYING STUDY 03/08/24 IMPRESSION: Abnormal study. There is severe retention of solid food in the stomach at 4 hours. MODIFIED BARIUM SWALLOW 03/22/24 FINDINGS: Lateral cine images of the oropharynx and hypopharynx demonstrate normal swallow mechanism with normal epiglottic inversion and soft palate elevation. There is trace laryngeal penetration with thick barium. No tracheal penetration, glottic or subglottic aspiration identified. No nasopharyngeal reflux present. A small pharyngeal pouch is present. Hypopharyngeal structures appear normal without evidence of mass or diverticulum. Mild cricopharyngeal achalasia present. Dual and single contrast images of the esophagus demonstrate normal caliber, contour, and mucosal pattern. No evidence of stricture, mass, or ulcerations identified. Esophageal peristalsis was mildly disorganized. A nonobstructive Schatzki's ring is present. A small type I hiatal hernia is present. No significant gastroesophageal reflux was seen during the course of the examination and on reflux views. Dual contrast and single contrast images of the stomach demonstrated a normal contour. The gastric rugal folds have a mildly thickened appearance. There are multiple areas of contrast pooling in the fundus and body the stomach that may represent small superficial aphthous ulcers. There is to and fro motion of a mixed contrast/density in the stomach that may represents retained food. Contrast freely passed into the gastric antrum and duodenal bulb without delay. Single and air-contrast images of the duodenal bulb demonstrate no abnormality. The duodenal sweep has a normal appearance, course, and mucosal fold appearance. The imaged proximal jejunum has a normal fold pattern and caliber. FLUOROSCOPY TIME: 3 minutes 30 seconds Number of Spot Images: 11 Number of Cine: 14 DOSE AREA PRODUCT: 2645 uGy-m2 (microgray-meter squared) FL/FL barium swallow with air IMPRESSION: 1. Trace pharyngeal penetration with thick barium. 2. Small pharyngeal pouch 3. Mild cricopharyngeal achalasia 4. Mildly disorganized esophageal peristalsis 5. Nonobstructive Schatzki's ring 6. Small type I hiatal hernia 7. Thickened gastric rugal folds. In addition there are multiple tiny areas of contrast pooling in the fundus and body the stomach. These findings are suggestive of erosive gastritis. Recommend correlation with EGD. 8. To and fro motion of a mixed contrast/density in the stomach that may represent retained food. EGD 07/16/24 Findings: Larynx: Normal Esophagus: Mildly tortuous esophagus with a non-obstructing Schatzki's ring at GE junction. GE junction at 36 cms, small hiatal hernia 36 to 38 cms. Balloon dilation of distal esophagus was performed with a 20 mm (60 F) CRE balloon for 60 seconds Stomach: Moderate diffuse gastric erythema - biopsies were obtained from the gastric body and antrum. A few 8-10 mm benign appearing nodules with central erosions in the antrum - biopsied. Grade 3 flap valve on retroflexed examination of the cardia. Duodenum: Duodenitis in the bulb with superficial erosions. Normal bulb and descending duodenum - biopsies were obtained from 3rd part of duodenum to check for celiac sprue Intervention: Biopsies and esophageal balloon dilation as noted above Impression and Post Procedure Diagnosis: Endoscopy Findings: ESOPHAGUS: Mildly tortuous esophagus. Small hiatal hernia with non-obstructing Schatzki's ring. Balloon dilation of distal esophagus was performed with a 20 mm (60 F) CRE balloon for 60 seconds STOMACH: Nodular appearing mucosa in the gastric body and fundus - biopsied. Moderate diffuse gastric erythema - biopsies were obtained from the antrum. BIOPSY Received: 03/29/24 Diagnosis A. Small bowel, biopsy: Small intestinal mucosa within normal limits; negative for celiac disease. B. Stomach, antrum, biopsy: Antral-type and oxyntic mucosa with moderate chronic inactive inflammation; no Helicobacter organisms seen. C. Stomach, antral nodule, biopsy: Antral-type mucosa with mild chronic inactive inflammation and surface hyperplastic changes; no Helicobacter organisms seen. D. Stomach, body, biopsy: Oxyntic mucosa with mild chronic inactive inflammation; no Helicobacter organisms seen. Assessment & Plan Assessment & Plan (1) Gastroparesis: Comment: GES 03/02/2024 IMPRESSION: Abnormal study. There is severe retention of solid food in the stomach at 4 hours. Code(s): K31.84 - Gastroparesis Category: Medical (2) Upper abdominal pain: Code(s): R10.10 - Upper abdominal pain, unspecified Category: Medical (3) Abdominal bloating: Code(s): R14.0 - Abdominal distension (gaseous) Category: Medical (4) GERD (gastroesophageal reflux disease): Code(s): K21.9 - Gastro-esophageal reflux disease without esophagitis Category: Medical (5) Chronic idiopathic constipation: Code(s): K59.04 - Chronic idiopathic constipation Category: Medical (6) Dysphagia: Comment: Has 2 distinct problems with fluids entering the airway and things sticking at the GE junction. 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 aeb Code(s): R13.10 - Dysphagia, unspecified Category: Medical Plan ESTONIAN #[id number] She received the reglan but is not taking it qid as instructed - she says I read the possible s/e and was afraid that it would interfere with my cardiac medications. I instruct her that this is not so, and it will be important to pace her stomach to keep things moving and prevent reflux and choking. She says she is very sensitive to medications, and if she truely can not tolerate it she will have to be extremely careful about choking as there is little I can do to treat the gastroparesis and its contribution to reflux and choking - especially in conjunction with her mounjaro. SHe tells me she has had several choking episodes especially on meats, and so this proves my point. She also has very poor dentition of her back teeth and admits this causes chewing problems. We discuss eating very slowly, cutting think smaller, eating softer foods and being careful when conversing while eating as this can confuse the epiglottis and cause choking. We again review the possible s/e of the reglan, and that most of these are very rare except at higher doses over 80mg/day and even then they are quite rare. If she really has problems we will try to address this, but she should try it first. She asks me about her liver, but I do not have blood work so I can't really answer this. I encourage her to go for the chem panel and the TSH. She continues on her pantoprazole, mylanta, LInzess, her BM's are still uneven and inconsistent and taking the reglan will also help this. In the past she has not taken the LInzess every day r/t moving my bowels all day, and my attempts to educate her that taking it daily would help alleviate this - but she can't seem to grasp this. 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 Obviously this is not a big problem and she can just do the blood work whenever she finds it convenient. I really do not have any severe worries that there is any big problems with her liver. ROV 4 mos. Coding Level of Care Code Est Pt Level 4 (50845) Diagnoses Gastroparesis K31.84 Upper abdominal pain R10.10 Abdominal bloating R14.0 GERD (gastroesophageal reflux disease) K21.9 Chronic idiopathic constipation K59.04 Dysphagia R13.10 Time Spent (min) 37
[2024-04-19 15:33] VITALS: BP 99/50; PULSE 76; BMI 31.1
== END 2024-04-19 16:37 | disposition home or self-care (01) ==
PROVIDERS: PCP Nurse Practitioner Primary Care; Visit Provider Nurse Practitioner
DX: K31.84 Gastroparesis (principal); R10.10 Upper abdominal pain, unspecified; R14.0 Abdominal distension (gaseous); K21.9 Gastro-esophageal reflux disease without esophagitis; K59.04 Chronic idiopathic constipation; R13.10 Dysphagia, unspecified
CPT/HCPCS: 99214

== ENCOUNTER → 2024-04-19 15:27 | Outpatient (BNVA) | payer OTHER, SELFPAY | PROVIDERS: PCP Nurse Practitioner Primary Care; Visit Provider Nurse Practitioner | DX: K31.84 Gastroparesis (principal); R10.10 Upper abdominal pain, unspecified; R14.0 Abdominal distension (gaseous); K21.9 Gastro-esophageal reflux disease without esophagitis; K59.04 Chronic idiopathic constipation; R13.10 Dysphagia, unspecified | CPT/HCPCS: 99212 ==

== ENCOUNTER 2024-04-21 12:08 | Outpatient (AMB) | payer OTHER, SELFPAY ==
--- NOTE | 2024-04-21 12:34 | A.OFFVIS_ITS ---
Intake Intake Visit Reasons: 60 MIN Corporate Safety Manager Required: Yes Corporate Safety Manager Language: Intensive Care Ambulance Paramedic Name: [id number] Accompanied by: Self / Same As Patient Allergies No Known Allergies Allergy (Verified 04/19/24 15:43) HPI Comprehensive Diabetes Asmnt Most Recent Diabetes Results: No Data to Display [facility] Medical History Vertigo Cervicalgia Restless legs syndrome (RLS) Neuropathy Palpitations CAD (coronary artery disease) Depression High cholesterol Celiac disease HTN (hypertension) Hypothyroid Insulin dependent type 1 diabetes mellitus Surgical History H/O bilateral breast reduction surgery History of carpal tunnel release of both wrists History of section H/O abdominoplasty Hx of colonoscopy History of arthroplasty of left knee H/O heart artery stent Family History Mother Diabetes High blood pressure Father Diabetes High blood pressure Paternal Aunt Bone cancer Sister Breast cancer Sister Lymph node cancer Social History Household Members: None Housing: Apartment Are you a primary post acute care nurse to a significant other at home: No Do you presently have visiting nurse or other home services: No Alcohol intake: never Patient Tobacco Use Status: Never used Tobacco service: No Current occupational status: disabled Assessment & Plan Assessment & Plan (1) Type 2 diabetes mellitus: Code(s): E11.9 - Type 2 diabetes mellitus without complications Plan: Personal Continuous Glucose Monitor: Patients CGM information reviewed Reviewed patient's sensor data: Hypoglycemia: ? 0% Hyperglycemia:?38% Time in Range:? 62% Average glucose for the last 2 weeks? 172 mg/dL Patient reports she was off the Mounjaro 10 mg for a month, and restarted approximately 3 weeks ago. Patient has history of GI discomfort, additionally she has a diagnosis of gastroparesis. Since restarting Mounjaro she has had an increase in GI upset. She does want to continue for another month to see if things improve. She does like the benefit of reduced appetite that Mounjaro gives her We will follow-up in 1 month see if GI upset has improved. Reviewed how to interpret trend arrows Reminded patient that to check finger sticks if symptoms do not match sensor reading Discussed lag time between finger stick and sensor data.? Patient able to insert sensor independently at home without issue.? Portions of this note were created using voice recognition software, please excuse any words or phrases that may have been misinterpreted. Coding Level of Care Code Est Pt Level 1 (14504) Diagnoses Type 2 diabetes mellitus E11.9
== END 2024-04-21 13:01 | disposition home or self-care (01) ==
PROVIDERS: PCP Nurse Practitioner Primary Care; Visit Provider Registered Nurse Diabetes Educator
DX: E11.9 Type 2 diabetes mellitus without complications (principal)

== ENCOUNTER → 2024-04-21 12:08 | Outpatient (BNVA) | payer OTHER, SELFPAY | PROVIDERS: PCP Nurse Practitioner Primary Care; Visit Provider Registered Nurse Diabetes Educator | DX: E11.9 Type 2 diabetes mellitus without complications (principal) | CPT/HCPCS: 99211 ==

== ENCOUNTER 2024-05-04 15:58 | Outpatient (REF) | payer OTHER, SELFPAY ==
--- NOTE | ~2024-05-04 | MR_ITS ---
EXAMINATION: MR FOOT WITHOUT AND WITH CONTRAST, RIGHT CLINICAL INFORMATION: Chronic right third toe osteomyelitis. Evaluate for acute osteomyelitis. COMPARISON: Right foot radiographs dated 02/26/2024 and MRI dated 12/03/2021. TECHNIQUE: MRI of the right foot was performed before and after the intravenous administration of 9 mL Gadavist on a high-field scanner. FINDINGS: Demonstration of a soft tissue wound at the distal aspect of the third toe with skin thickening and subcutaneous edema as well as postcontrast enhancement, consistent with acute cellulitis. No organized fluid collection or abscess formation. Within the adjacent distal third phalanx, there is increased T2 and decreased T1 signal with postcontrast rim enhancement, slightly more prominent when compared to the prior MRI and consistent with acute on chronic osteomyelitis. No metatarsal stress reaction or fracture. Mild osteoarthritis at the second through third tarsometatarsal joints as well as at the first metatarsophalangeal joint and hallux sesamoids. The visualized flexor and extensor tendons are intact. No transverse and anterior tendon retraction. Along the plantar/medial aspect of the third metatarsal diaphysis, there is a lobulated, thin-walled cyst with minimal peripheral enhancement measuring up to 3.7 cm in AP dimension, increased in size in comparison to the prior MRI and consistent with a synovial recess versus ganglion cyst. This previously measured approximately 1.3 cm. MR/MR foot RT wo/w con IMPRESSION: 1. Soft tissue wound at the distal aspect of the third toe with associated cellulitis. No abscess formation. Findings consistent with acute on chronic osteomyelitis within the distal third phalanx, slightly more prominent when compared to the prior MRI. 2. Mild osteoarthritis at the second through third tarsometatarsal joints as well as at the first metatarsophalangeal joint and hallux sesamoids. 3. Ganglion cyst versus synovial recess along the plantar/medial aspect of the third metatarsal diaphysis, increased in size when compared to the prior MRI. Electronically signed by: Ulysses Mandujano MD 05/05/2024 11:25 AM EDT
[2024-05-04] MEDS: gadobutroL 10 ML VIAL IVPUSH (17:03)
== END 2024-05-04 15:59 | disposition home or self-care (01) ==
LOC: HO.MRI 15:58
PROVIDERS: PCP Nurse Practitioner Primary Care; Visit Provider Nurse Practitioner Primary Care
DX: M86.671 Other chronic osteomyelitis, right ankle and foot (principal)
CPT/HCPCS: 73720; A9585

== ENCOUNTER 2024-05-10 08:09 | Outpatient (REF) | payer OTHER, SELFPAY ==
--- NOTE | ~2024-05-10 | XR_ITS ---
EXAMINATION: XR ANKLE, LEFT XR FOOT, LEFT CLINICAL INFORMATION: Pain. COMPARISON: Left ankle and foot radiographs dated 03/22/2024. TECHNIQUE: AP, oblique, and lateral views of the left ankle and foot. FINDINGS: Left Ankle: No acute fracture or dislocation. The ankle mortise is maintained. Tiny tibiotalar marginal osteophytes, unchanged. No talar osteochondral lesion. Mild circumferential soft tissue swelling. Atherosclerotic and dystrophic calcifications. Left Foot: No acute fracture or dislocation. Prominent plantar and dorsal calcaneal spurs, unchanged. Mild second tarsometatarsal and first metatarsophalangeal as well as first interphalangeal osteoarthritis, unchanged. No osseous erosion. XR/XR ankle LT min 3V IMPRESSION: LEFT ANKLE: No acute osseous abnormality. Mild tibiotalar osteoarthritis, unchanged. LEFT FOOT: No acute osseous abnormality. Mild second tarsometatarsal, first metatarsophalangeal, and first interphalangeal osteoarthritis, unchanged. Prominent plantar and dorsal calcaneal spurs. Electronically signed by: Ulysses Mandujano MD 05/30/2024 08:56 PM EDT
--- NOTE | ~2024-05-10 | XR_ITS ---
EXAMINATION: XR ANKLE, LEFT XR FOOT, LEFT CLINICAL INFORMATION: Pain. COMPARISON: Left ankle and foot radiographs dated 03/22/2024. TECHNIQUE: AP, oblique, and lateral views of the left ankle and foot. FINDINGS: Left Ankle: No acute fracture or dislocation. The ankle mortise is maintained. Tiny tibiotalar marginal osteophytes, unchanged. No talar osteochondral lesion. Mild circumferential soft tissue swelling. Atherosclerotic and dystrophic calcifications. Left Foot: No acute fracture or dislocation. Prominent plantar and dorsal calcaneal spurs, unchanged. Mild second tarsometatarsal and first metatarsophalangeal as well as first interphalangeal osteoarthritis, unchanged. No osseous erosion. XR/XR foot LT min 3V IMPRESSION: LEFT ANKLE: No acute osseous abnormality. Mild tibiotalar osteoarthritis, unchanged. LEFT FOOT: No acute osseous abnormality. Mild second tarsometatarsal, first metatarsophalangeal, and first interphalangeal osteoarthritis, unchanged. Prominent plantar and dorsal calcaneal spurs. Electronically signed by: Ulysses Mandujano MD 05/30/2024 08:56 PM EDT
[2024-05-10 08:27] LABS: MANUAL DIFF FLAG NO
[2024-05-10 08:54] LABS: Basophils Percent Auto 0.3 % (0-2); Eosinophils Absolute Auto 0.5 X10*3/uL (0.0-0.4); Eosinophils Percent Auto 6.7 % (0-4); Hematocrit 37.3 % (37.0-47.0); Hemoglobin 12.3 g/dl (12.0-16.0); Imm Gran Abs Auto 0.02 X10*3/uL (0.00-0.03); Imm Gran Pct Auto 0.3 % (0.0-0.4); Lymphocytes Absolute Auto 2.1 X10*3/uL (1.2-4.9); Lymphocytes Percent Auto 28.4 % (20-40); Mean Corpuscular Hemoglobin 30.8 pg (27.0-33.0); Mean Corpuscular Volume 93.5 fL (80.0-98.0); Mean Platelet Volume 9.3 fL (9.4-12.3); Monocytes Absolute Auto 0.7 X10*3/uL (0.1-1.2); Monocytes Percent Auto 9.6 % (2-11); Neutrophils Percent Auto 54.7 % (45-73); Platelet Count 389 X10*3/uL (160-400); Red Blood Count 3.99 X10*6/uL (4.20-5.50); Red Cell Distribution Width 13.8 % (11.0-16.0); White Blood Count 7.4 X10*3/uL (4.8-10.8)
[2024-05-10 09:36] LABS: Erythrocyte Sedimentation Rate 44 MM/HR (0-20)
[2024-05-10 14:10] LABS: Anion Gap 11 (12-20); Blood Urea Nitrogen 32 mg/dL (9-16); C Reactive Protein 0.24 mg/dL (< or = 0.50); Calcium 10.1 mg/dL (8.4-10.2); Carbon Dioxide 28 mmol/L (22-29); Chloride 104 mmol/L (96-108); Estimated Glomerular Filt Rate 51; Glucose Random 181 mg/dL (60-115); Potassium 4.7 mmol/L (3.3-5.1); Sodium 138 mmol/L (135-145)
[2024-05-10 14:27] LABS: TSH reflex Free T4 1.19 uIU/mL (0.32-4.0)
== END 2024-05-10 08:10 | disposition home or self-care (01) ==
LOC: HO.LAB 08:09
PROVIDERS: PCP Nurse Practitioner Primary Care; Visit Provider Nurse Practitioner Primary Care
DX: M79.672 Pain in left foot (principal); E03.9 Hypothyroidism, unspecified; M86.10 Other acute osteomyelitis, unspecified site; M86.60 Other chronic osteomyelitis, unspecified site
CPT/HCPCS: 36415; 73610; 73630; 80048; 84443; 85025; 85652; 86140

== ENCOUNTER 2024-06-23 10:47 | Outpatient (AMB) | payer OTHER, SELFPAY ==
--- NOTE | 2024-06-23 11:37 | MHC.AMDMED ---
Intake Intake Visit Reasons: DM 60 min-lvm Combination Saw Operator Required: Yes Combination Saw Operator Language: Veneer Sawyer Name: Jose [id number] Information Interpreted: non-clinical & clinical Accompanied by: Self / Same As Patient Allergies No Known Allergies Allergy (Verified 04/19/24 15:43) HPI Comprehensive Diabetes Asmnt Most Recent Diabetes Results: Microalb/Creat Ratio 80.3 ug/mg cr (<30) H 10/26/23 Cholesterol 132 mg/dL (<200) 10/26/23 HDL Cholesterol 42 mg/dL (>40) 10/26/23 Triglycerides 130 mg/dL (<150) 10/26/23 Creatinine 1.07 mg/dL (0.5-1.4) 05/10/24 Blood Urea Nitrogen 32 mg/dL (9-16) H 05/10/24 Sodium 138 mmol/L (135-145) 05/10/24 Potassium 4.7 mmol/L (3.3-5.1) 05/10/24 Chloride 104 mmol/L (96-108) 05/10/24 Carbon Dioxide 28 mmol/L (22-29) 05/10/24 Calcium 10.1 mg/dL (8.4-10.2) 05/10/24 AST 21 U/L (5-31) 05/15/23 ALT 22 U/L (0-31) 05/15/23 Total Protein 7.8 g/dL (6.5-8.0) 05/15/23 Albumin 4.2 g/dL (3.5-5.0) 05/15/23 [facility] Medical History Vertigo Cervicalgia Restless legs syndrome (RLS) Neuropathy Palpitations CAD (coronary artery disease) Depression High cholesterol Celiac disease HTN (hypertension) Hypothyroid Insulin dependent type 1 diabetes mellitus Surgical History H/O bilateral breast reduction surgery History of carpal tunnel release of both wrists History of section H/O abdominoplasty Hx of colonoscopy History of arthroplasty of left knee H/O heart artery stent Family History Mother Diabetes High blood pressure Father Diabetes High blood pressure Paternal Aunt Bone cancer Sister Breast cancer Sister Lymph node cancer Social History Household Members: None Housing: Apartment Are you a primary medicare sales representative to a significant other at home: No Do you presently have visiting nurse or other home services: No Alcohol intake: never Patient Tobacco Use Status: Never used Tobacco service: No Current occupational status: disabled Assessment & Plan Assessment & Plan (1) Type 2 diabetes mellitus: Code(s): E11.9 - Type 2 diabetes mellitus without complications Plan: Personal Continuous Glucose Monitor: Patients CGM information reviewed Reviewed patient's sensor data: Hypoglycemia: ? 0% Hyperglycemia:? 40% Time in Range:? 60% Average glucose for the last 2 weeks?175 mg/dL Patient is having postprandial hyperglycemia, patient does have diagnosis of gastroparesis, discussed with patient how gastroparesis can affect glucose levels with lead rise in glucose after meals Patient reports for breakfast she generally eats oatmeal, or soup made with corn meal, occasionally she will have protein shake for snacks or instead of meals. She does feel when she eats protein that her stomach feels full and uncomfortable Discussed with patient has some strategies to help with delayed glucose increase excursions. Suggested patient split dose of mealtime insulin given 60% before meals, and then 30-60 minutes later 40% of mealtime dose We also discussed insulin pump therapy and CeQue simplicity insulin delivery device Patient stated that she would like to continue to see Dr. Cho instead of [facility] COOK suggested to patient she ask to have appointment switched to Dr. Cho. Patient also stated if her next A1c continues to be elevated she will consider using insulin pump or insulin delivery patch. Patient able to insert sensor independently at home without issue.? Portions of this note were created using voice recognition software, please excuse any words or phrases that may have been misinterpreted. Patient Instructions: Follow-up with diabetic educator in 2 months Coding Level of Care Code Est Pt Level 1 (47158) Diagnoses Type 2 diabetes mellitus E11.9
== END 2024-06-23 11:41 | disposition home or self-care (01) ==
PROVIDERS: PCP Nurse Practitioner Primary Care; Visit Provider Registered Nurse Diabetes Educator
DX: E11.9 Type 2 diabetes mellitus without complications (principal)

== ENCOUNTER → 2024-06-23 10:47 | Outpatient (BNVA) | payer OTHER, SELFPAY | PROVIDERS: PCP Nurse Practitioner Primary Care; Visit Provider Registered Nurse Diabetes Educator | DX: E11.9 Type 2 diabetes mellitus without complications (principal) | CPT/HCPCS: 99211 ==

== ENCOUNTER 2024-08-02 13:15 | Outpatient (AMB) | payer OTHER, SELFPAY ==
--- NOTE | 2024-08-02 13:26 | MHC.OFFVIS ---
Vital Signs 08/02/24 13:30 Height 5 ft 7 in Weight 203 lb 11.314 oz BMI 31.9 BP 138/70 Blood Pressure Location Lt brachial Position Sitting Pulse 79 Pulse Source Pulse Oximeter Intake Visit Reasons: T2DM Intake Note: Patient present today to follow up on Type 2 Diabetes Mellitus. Last Diabetic Eye exam: 10/2023 Last Podiatry Visit: Does not see a Mate Fourth Random Glucose: 98 mg/dl HgA1C: 7.9% 08/02/24 Senior Marketing Data Analyst Required: Yes Senior Marketing Data Analyst Language: Doll Maker Services: Senior Marketing Data Analyst Present Senior Marketing Data Analyst Name: Saw Information Interpreted: non-clinical & clinical Accompanied by: Self / Same As Patient Allergies No Known Allergies Allergy (Verified 08/02/24 13:31) Medication List - Last Reconciled 08/02/24 by Antoine Cho MD alpha lipoic acid 300 mg PO BID alum-mag hydroxide-simeth 400-400-40 mg/5 mL (Mylanta Maximum Strength) 5 mL PO QID PRN aspirin 1 tab PO DAILY baclofen 10 mg PO BEDTIME PRN blood sugar diagnostic (FreeStyle Lite Strips) As directed 3 times a day blood-glucose meter (FreeStyle Lite Meter kit) As directed blood-glucose meter,continuous (Dexcom G6 [employer]) As directed carvedilol 1 tab PO DAILY empagliflozin (Jardiance) 25 mg PO QAM 30 days gabapentin 600 mg (2 x 300 mg) PO BEDTIME insulin aspart U-100 (Novolog FlexPen U-100 Insulin aspart) 30 units subcut DAILY insulin degludec (Tresiba FlexTouch U-200 insulin) 34 units (0.17 mL) subcut BEDTIME 30 days lancets (FreeStyle Lancets) As directed 3 times a day levothyroxine 137 mcg PO DAILY linaclotide (Linzess) 290 mcg PO QAM melatonin 1 tab PO BEDTIME PRN metformin ER 1,000 mg PO BID metoclopramide HCl (Reglan) 5 mg PO QIDACHS multivitamin with folic acid 400 mcg (Daily-Fidelia (with folic acid)) 1 tab PO DAILY pantoprazole (Protonix) 40 mg PO BID 30 days pregabalin 75 mg PO DAILY rosuvastatin 20 mg PO BEDTIME sacubitril-valsartan 97-103 mg (Entresto) 1 tab PO DAILY spironolactone 25 mg PO DAILY tirzepatide (Mounjaro) 10 mg (0.5 mL) subcut QWEEK HPI Comments Details: 68 YO F who is seen in consultation for T2DM at the request of PCP. Initially diagnosed with T2DM in 20 yrs . Was initially started on treatment with metformin 1000 mg BID . Current regimen metformin 1000 mg BID Tresiba 34 units Novolog 30 units premeals . Mounjaro 10 mg Qwkly Jardiance 25 mg QD Dexcom download shows she is using the sensor 100% of the time. Average glucose is 173 with G mi of 7.5% and standard deviation of 41. 60% range with 40% hyperglycemia and less than 1% hypoglycemia. Patent shows elevation of point of care post breakfast we continued elevation throughout the day Reports low sugars 2 X wk if overcorrects . Feels sx weakness Treats lows with diabetic shakes . Checks sugar after to ensure it is rising. Treats and checks 1 hr after correction . Family history of T2DM in brothers and sisters . Has eyes checked yearly, last eye exam 10/2023 , has retinopathy. has neuropathy, sees podiatry. Denies nephropathy, on SAROJ/ARB. . Has HLD, on statin. Has CAD. Had diabetes education. Had uterine surgery last mo. Some GI sx from [facility] Medical History Vertigo Cervicalgia Restless legs syndrome (RLS) Neuropathy Palpitations CAD (coronary artery disease) Depression High cholesterol Celiac disease HTN (hypertension) Hypothyroid Insulin dependent type 1 diabetes mellitus Surgical History H/O bilateral breast reduction surgery History of carpal tunnel release of both wrists History of section H/O abdominoplasty Hx of colonoscopy History of arthroplasty of left knee H/O heart artery stent Family History Mother Diabetes High blood pressure Father Diabetes High blood pressure Paternal Aunt Bone cancer Sister Breast cancer Sister Lymph node cancer Social History Household Members: None Housing: Apartment Are you a primary healthcare insurance sales agent to a significant other at home: No Do you presently have visiting nurse or other home services: No Alcohol intake: never Patient Tobacco Use Status: Never used Tobacco service: No Current occupational status: disabled Physical Exam Vital Signs: Last Vital Signs Pulse 79 08/02/24 13:30 BP 138/70 08/02/24 13:30 BMI result Body Mass Index 31.9 Absence of Cushingoid features. Absence of acromegalic features. Neck exam reveals nl size thyroid about 15 gms. No thyroid nodules palpable. No carotid bruits present. Lungs CTA. Heart S1 S2, Reg R/R. No M/R/ G. Skin exam reveals absence of vitiligo or acanthosis nigricans. Abdominal exam reveals Soft NT/ND with NA BS. No organomegaly present. Neck Other: . Extrem Other: Visual exam of foot performed.R third toe with scaled lesion followed by podiatry . No open lesions. No onchomycosis, no callouses.Pulses 2 + distally Sensation decreased to monofilament exam. Vibratory sensation sensed is decreased with 128 Hz tuning fork Results AMB Hemoglobin A1c AMB Hemoglobin A1c 7.9 % Last Edit by LAKEISHA Miller on 08/02/24 13:51 Results Reviewed Results Reviewed: Laboratory Last Values Glucose (Clinic) 98 mg/dL (60-115) 08/02/24 13:39 Hgb A1c (Clinic) 7.9 % (4.0-6.0) H 08/02/24 13:43 Assessment & Plan Assessment & Plan (1) Type 2 diabetes mellitus: Code(s): E11.9 - Type 2 diabetes mellitus without complications Category: Medical Plan: This is a 67-year-old female with a history of type 2 diabetes being treated metformin,Mounjaro and basal-bolus insulin with good but not optimal glycemic control and known macrovascular and microvascular complications namely CAD and neuropathy Plan is to i continue the current regimen. If patient continues to have post-prandial breakfast hyperglycemia, may need to increase NovoLog dose before breakfast. I told patient not to overcorrect for post-breakfast hyperglycemia. . . I asked her to report any hypoglycemia for adjustment of insulin. She should follow up with Katrin Sandoval NP in 2 mos Orders: Orders AMB Hemoglobin A1c Today E11.9 - Type 2 diabetes mellitus without complications Coding Level of Care Code Est Pt Level 4 (03303) Complex EM visit Add On G2211 Diagnoses Type 2 diabetes mellitus E11.9
[2024-08-02 13:30] VITALS: BP 138/70; PULSE 79; BMI 31.9
[2024-08-02 13:45] LABS: Glucose, Whole Blood 98 mg/dL (60-115)
== END 2024-08-02 14:05 | disposition home or self-care (01) ==
PROVIDERS: PCP Nurse Practitioner Primary Care; Visit Provider Internal Medicine Endocrinology, Diabetes & Metabolism
DX: E11.9 Type 2 diabetes mellitus without complications (principal)
CPT/HCPCS: 99214; G2211

== ENCOUNTER → 2024-08-02 13:15 | Outpatient (BNVA) | payer OTHER, SELFPAY | PROVIDERS: PCP Nurse Practitioner Primary Care; Visit Provider Internal Medicine Endocrinology, Diabetes & Metabolism | DX: E11.9 Type 2 diabetes mellitus without complications (principal); Z79.84 Long term (current) use of oral hypoglycemic drugs | CPT/HCPCS: 82947; 83036; 99212 ==

== ENCOUNTER 2024-08-23 10:16 | Outpatient (AMB) | payer OTHER, SELFPAY ==
--- NOTE | 2024-08-23 11:30 | MHC.AMDMED ---
Intake Intake Visit Reasons: 60 min Yard Attendant Required: Yes Yard Attendant Language: Solution Advisor Name: Shawna [facility] [place]ompanied by: Self / Same As Patient Allergies No Known Allergies Allergy (Verified 08/02/24 13:31) HPI Comprehensive Diabetes Asmnt Most Recent Diabetes Results: Microalb/Creat Ratio 80.3 ug/mg cr (<30) H 10/26/23 Cholesterol 132 mg/dL (<200) 10/26/23 HDL Cholesterol 42 mg/dL (>40) 10/26/23 Triglycerides 130 mg/dL (<150) 10/26/23 Creatinine 1.07 mg/dL (0.5-1.4) 05/10/24 Blood Urea Nitrogen 32 mg/dL (9-16) H 05/10/24 Sodium 138 mmol/L (135-145) 05/10/24 Potassium 4.7 mmol/L (3.3-5.1) 05/10/24 Chloride 104 mmol/L (96-108) 05/10/24 Carbon Dioxide 28 mmol/L (22-29) 05/10/24 Calcium 10.1 mg/dL (8.4-10.2) 05/10/24 AST 21 U/L (5-31) 05/15/23 ALT 22 U/L (0-31) 05/15/23 Total Protein 7.8 g/dL (6.5-8.0) 05/15/23 Albumin 4.2 g/dL (3.5-5.0) 05/15/23 PFSH Medical History Vertigo Cervicalgia Restless legs syndrome (RLS) Neuropathy Palpitations CAD (coronary artery disease) Depression High cholesterol Celiac disease HTN (hypertension) Hypothyroid Insulin dependent type 1 diabetes mellitus Surgical History H/O bilateral breast reduction surgery History of carpal tunnel release of both wrists History of section H/O abdominoplasty Hx of colonoscopy History of arthroplasty of left knee H/O heart artery stent Family History Mother Diabetes High blood pressure Father Diabetes High blood pressure Paternal Aunt Bone cancer Sister Breast cancer Sister Lymph node cancer Social History Household Members: None Housing: Apartment Are you a primary caregiver assisted living to a significant other at home: No Do you presently have visiting nurse or other home services: No Alcohol intake: never Patient Tobacco Use Status: Never used Tobacco service: No Current occupational status: disabled Assessment & Plan Assessment & Plan (1) Type 2 diabetes mellitus: Code(s): E11.9 - Type 2 diabetes mellitus without complications Plan: Personal Continuous Glucose Monitor: Patients CGM information reviewed, Pt uses Dexcom G7 Sensor data: Hypoglycemia: ? 0% Hyperglycemia:? 43% Time in Range:? 57% Average glucose for the last 2 weeks?180 mg/dL Last A1c on 08/02/2024 7.9% Patient reports that since increase in Mounjaro to 10 mg she has felt GI discomfort with increased acid reflux. Patient denies that she had these symptoms when she was using Mounjaro 7.5 mg Patient has requested a new prescription for Mounjaro 7.5 mg weekly, request sent to provider We further discussed insulin pump therapy, patient is not ready to make a decision at this time Encourage patient to increase NovoLog before breakfast and supper from NovoLog 25 units to NovoLog 30 units 15 minutes before meals Reviewed with patient how to treat hypoglycemia, instructed patient if she is developing postprandial hypoglycemia to go back to NovoLog 25 units Patient able to insert sensor independently at home without issue.? Learning objectives: The patient was provided with verbal and written education on the following topics as outlined below. Diabetes Complications: ?Nephropathy :Kidney Disease ?diabetes can damage the kidneys, which is not only can cause them to fail but can make them lose their ability to filter waste from the blood? ?Retinopathy: Eye complications ?Retinopathy? is the commonest long-term complication of diabetes. It is leading cause of blindness Besides, Retinopathy-People with diabetes? are also prone to cataract and Glaucoma. ?Neuropathy: Nerve damage -It involves temporary or permanent damage to nerve tissue. Nerve tissue gets injured mainly due to decreased blood flow and rise in blood glucose levels. This damage can lead to pain , or loss of sensation it can also include sexual dysfunction in both men and women ? Infections poor healing: People with diabetes? have increased susceptibility to various infections, such as? pneumonias, pyelonephritis, carbuncles and diabetic ulcers. This may be due to poor blood supply, reduced cellular immunity or hyperglycemia. ?Heart Disease And Stroke: People with diabetes are four times more prone to develop Heart disease than those who do not have diabetes ?Depression: Feeling down once in awhile is normal, but some people feel sadness that just won't go away. Life for them seems hopeless. Feeling this way most of the day for two weeks or more is a sign of serious depression ?Gum Disease: People get gum disease when plaque destroys the gums and bone around the teeth. People with diabetes can get gum disease from having high blood glucose levels for a long time Portions of this note were created using voice recognition software, please excuse any words or phrases that may have been misinterpreted. Patient Instructions: Patient will follow-up with outreach educator in 3 months Coding Level of Care Code Tele Est Pt Level 1 (71839) Diagnoses Type 2 diabetes mellitus E11.9
== END 2024-08-23 11:36 | disposition home or self-care (01) ==
PROVIDERS: PCP Nurse Practitioner Primary Care; Visit Provider Registered Nurse Diabetes Educator
DX: E11.9 Type 2 diabetes mellitus without complications (principal)
CPT/HCPCS: 99211

== ENCOUNTER → 2024-08-23 10:16 | Outpatient (BNVA) | payer OTHER, SELFPAY | PROVIDERS: PCP Nurse Practitioner Primary Care; Visit Provider Registered Nurse Diabetes Educator ==

== ENCOUNTER 2024-09-21 12:49 | Outpatient (REF) | payer OTHER, SELFPAY | END 2024-09-21 12:50 | disposition home or self-care (01) | LOC: HO.MAMMO 12:49 | PROVIDERS: PCP Nurse Practitioner Primary Care; Visit Provider Nurse Practitioner Primary Care | DX: Z12.31 Encounter for screening mammogram for malignant neoplasm of breast (principal) | CPT/HCPCS: 77063; 77067 ==

== ENCOUNTER → 2024-09-21 13:15 | Outpatient (BNV) | payer OTHER, SELFPAY | PROVIDERS: PCP Nurse Practitioner Primary Care; Visit Provider Internal Medicine | DX: Z12.31 Encounter for screening mammogram for malignant neoplasm of breast (principal) | CPT/HCPCS: 77063; 77067 ==

== ENCOUNTER 2024-09-30 13:14 | Outpatient (AMB) | payer OTHER, SELFPAY ==
--- NOTE | 2024-09-30 08:31 | A.OFFVIS_ITS ---
Vital Signs 09/30/24 13:30 Height 5 ft 7 in Weight 198 lb 6.656 oz BMI 31.1 BP 122/78 Blood Pressure Location Rt brachial Position Sitting Pulse 67 Pulse Source Pulse Oximeter Intake Visit Reasons: T2DM Intake Note: Patient presents today for a follow-up on Type 2 Diabetes Mellitus: Last Diabetic eye exam was on: DUE Last Podiatry exam was on: Patient does not see a Wrap Turner Most recent HbA1c: 7.9%, 08/02/2024 Random Glucose- 162 mg/dL, Today Garage Attendant Required: Yes Garage Attendant Language: [employer] Services: Garage Attendant Present Garage Attendant Name: LAKEISHA Cerda/RUSSELL RODRIGUEZ Information Interpreted: non-clinical & clinical Accompanied by: Self / Same As Patient Allergies No Known Allergies Allergy (Verified 09/30/24 13:27) HPI Comments Details: 68 YO F who is seen in f/u for T2DM at the request of PCP. She was last seen by Dr. Cho 08/02/2024. No changes in medications were made at this time Initially diagnosed with T2DM in 20 yrs . Was initially started on treatment with metformin 1000 mg BID . 6-9 time pers month Current regimen metformin 1000 mg BID Tresiba 34 units skips Novolog 30 units pre meals . Mounjaro 7.5 mg Qwkly Jardiance 25 mg QD Dexcom average glucose: 190 14 day continuous glucose monitor report reviewed Glucose Managment indicator 7.9 % Days with CGM data 94 % TIme in ranges: 11 % very high (above 250) 43 % high ?(181-250) 45 % in range ?(70-180] 0 % low (69-55) 0 % ?very low (below 54) 24.8 Standard Deviation Interpretation [sugars running 40 points over desired target with postprandial bumps ] Treats lows with diabetic shakes . Checks sugar after to ensure it is rising. Treats and checks 1 hr after correction . Family history of T2DM in brothers and sisters . Has eyes checked yearly, last eye exam 10/2023 , has retinopathy. DUE has neuropathy, on gabapentin numbness and tingling Has nephropathy, on ARB 05/10/2024 EGFR 51 microalbumin 05/10/2024 133 10/28/2022 847 Has HLD, on statin. LDL 64 11/07 Has CAD. Had diabetes education. Had uterine surgery last mo. Some GI sx from [facility] Medical History Vertigo Cervicalgia Restless legs syndrome (RLS) Neuropathy Palpitations CAD (coronary artery disease) Depression High cholesterol Celiac disease HTN (hypertension) Hypothyroid Insulin dependent type 1 diabetes mellitus Surgical History H/O bilateral breast reduction surgery History of carpal tunnel release of both wrists History of section H/O abdominoplasty Hx of colonoscopy History of arthroplasty of left knee H/O heart artery stent Family History Mother Diabetes High blood pressure Father Diabetes High blood pressure Paternal Aunt Bone cancer Sister Breast cancer Sister Lymph node cancer Social History Household Members: None Housing: Apartment Are you a primary group care worker to a significant other at home: No Do you presently have visiting nurse or other home services: No Alcohol intake: never Patient Tobacco Use Status: Never used Tobacco service: No Current occupational status: disabled Physical Exam Vital Signs: Last Vital Signs Pulse 67 09/30/24 13:30 BP 122/78 09/30/24 13:30 BMI result Body Mass Index 31.1 Const Other: Absence of Cushingoid features. Absence of acromegalic features. Neck exam reveals nl size thyroid about 15 gms. No thyroid nodules palpable. No carotid bruits present. Lungs CTA. Heart S1 S2, Reg R/R. No M/R G. Skin exam reveals absence of vitiligo or acanthosis nigricans. No edema Results Reviewed Results Reviewed: Laboratory Last Values Glucose (Clinic) 162 mg/dL (60-115) H 09/30/24 13:32 Assessment & Plan Assessment & Plan (1) Type 2 diabetes mellitus: Code(s): E11.9 - Type 2 diabetes mellitus without complications Category: Medical Plan: This is a 68-year-old female with a history of type 2 diabetes being treated metformin,Mounjaro and basal-bolus insulin with good but not optimal glycemic control and known macrovascular and microvascular complications namely CAD and neuropathy. New dosing Tresiba 30 units Novolog Breakkfas 30 units lunch 34 units supper 30 units Mounjaro 7.5 mg Qwkly Jardiance 25 mg QD metformin 1000mg twice daily The patient had an opportunity to ask questions regarding treatment plan. The patient expressed understanding and agreement with the above treatment plan. The patient is aware they should contact our office by phone for worsening glucose readings or for any low blood sugars which may warrant a change in diabetes medication. Compliance is encouraged with medications and any followup testing/consults which may have been ordered. Patient Instructions: The patient was counseled to always carry a source of sugar and on the rule of 15's: Take 3 glucose tablets and repeat again in 15 minutes if blood sugar is not in normal range. Continue to repeat every 15 minutes until blood sugar is normal. Check your feet daily looking for any signs of infection, ulceration and seek medical attention if this occurs. Break in shoes gradually and do not wear open-toed shoes or walk barefooted. The patient was counseled to achieve a target A1C of 7% (154 avg). Fasting blood sugars should be 90-130 in the morning and less than 180 two hours after meals. Reviewed the relationship between poor diabetic control and the development of complications. Coding Level of Care Code New Pt Level 4 (93311) Complex EM visit Add On G2211 Diagnoses Type 2 diabetes mellitus E11.9 Time Spent (min) 30 Comment Time spent reviewing labs/provider notes, face to face, chart doc
[2024-09-30 13:30] VITALS: BP 122/78; PULSE 67; BMI 31.1
[2024-09-30 13:40] LABS: Glucose, Whole Blood 162 mg/dL (60-115)
== END 2024-09-30 13:53 | disposition home or self-care (01) ==
PROVIDERS: PCP Nurse Practitioner Primary Care; Visit Provider Nurse Practitioner Adult Health
DX: E11.9 Type 2 diabetes mellitus without complications (principal)
CPT/HCPCS: 99214; G2211

== ENCOUNTER → 2024-09-30 13:14 | Outpatient (BNVA) | payer OTHER, SELFPAY | PROVIDERS: PCP Nurse Practitioner Primary Care; Visit Provider Nurse Practitioner Adult Health | DX: E11.9 Type 2 diabetes mellitus without complications (principal); Z79.4 Long term (current) use of insulin; Z79.84 Long term (current) use of oral hypoglycemic drugs | CPT/HCPCS: 82947; 99212 ==

== ENCOUNTER 2024-11-30 08:40 | Outpatient (REF) | payer OTHER, SELFPAY ==
[2024-11-30 14:36] LABS: Estimated Average Glucose 166 mg/dL; Hemoglobin A1c % 7.4 % (<6.0); Total Hemoglobin (HGBA1C) 3470.2969 umol/L
[2024-11-30 15:24] LABS: Creatinine Urine 73.79 mg/dL
[2024-11-30 15:29] LABS: Erythrocyte Sedimentation Rate 28 MM/HR (0-20)
[2024-11-30 15:35] LABS: Cholesterol 206 mg/dL (<200); HDL Cholesterol 52 mg/dL (>40); LDL Cholesterol Calculated 125 mg/dL (<100); Triglycerides 146 mg/dL (<150)
[2024-11-30 15:49] LABS: Thyroid Stimulating Hormone 2.14 uIU/mL (0.32-4.0)
== END 2024-11-30 08:41 | disposition home or self-care (01) ==
LOC: HO.CHCLDS 08:40
PROVIDERS: PCP Nurse Practitioner Primary Care; Referring Provider Nurse Practitioner Adult Health; Visit Provider Nurse Practitioner Primary Care
DX: E11.9 Type 2 diabetes mellitus without complications (principal); Z87.39 Personal history of other diseases of the musculoskeletal system and connective tissue
CPT/HCPCS: 36415; 80061; 82570; 83036; 84443; 85652; 86140

== ENCOUNTER 2024-12-14 10:28 | Outpatient (REF) | payer OTHER, SELFPAY ==
--- NOTE | ~2024-12-14 | US_ITS ---
EXAMINATION: US PELVIS TRANSABDOMINAL AND TRANSVAGINAL HISTORY: D25.9 - Leiomyoma of uterus, unspecified COMPARISON: Comparison is made with the prior examination dated 01/28/2024. TECHNIQUE: Transabdominal and endovaginal real-time 2D aaron-scale ultrasound was performed. FINDINGS: Uterus: The uterus is normal in size, measuring 8.2 x 3.5 x 5.2 cm. Myometrium has a normal echotexture. Again seen is an anterior uterine fibroid of the lower uterine segment measuring 10 x 12 x 16 mm (previously 11 x 12 x 18 mm). Endometrium: The endometrial stripe measures 3 mm in thickness. Right ovary: The right ovary measures 2.4 x 1.8 x 2.2 cm. The right ovary is normal in size and echotexture. Left ovary: The left ovary measures 1.8 x 1.7 x 1.7 cm. The left ovary is normal in size and echotexture. Pelvic fluid: none. US/US pelvic and transvaginal IMPRESSION: Stable anterior uterine fibroid. Otherwise unremarkable pelvic ultrasound. Electronically signed by: Antoine Garay MD 12/14/2024 02:08 PM EDT
--- OUTSIDE RECORDS SUMMARY | 2024-12-14 12:20 | XMS_ITS | Clinical Summary ---
Author Organization [employer] Address [address] [place] [address] Care Team Providers Care Supervisor Safety Deposit Name Role Phone Justin Lopez JOSE CRUZ Primary Care Provider Allergies No known active allergies Medications * This document contains information received from the source organization and may not represent a complete record from that organization. Blood Pressure Monitoring (Omron 3 Series BP Monitor) device Check blood pressure on arm as directed 022 Active GaviLyte-G 236 g solution DRINK 240 mL orally every 10 minutes for 1 day; until fecal effluent is clear; do not exceed a total volume of 2,000 mL 022 Active Jardiance 25 MG Take 1 tablet by mouth every morning 023 Active Blood Glucose Monitoring Suppl (FreeStyle glucose monitoring) kit Use BID and more as needed. Dx type 2 diabetes 1 each 023 Active spironolactone (Aldactone) 25 MG tabletIndication s:CHF Take 12.5 mg by mouth in the morning. 023 Active albuterol 108 (90 Base) MCG/ACT inhalerIndicatio ns:Subacute cough Inhale 2 puffs every 6 (six) hours if needed for wheezing or shortness of breath. 18 g 1 024 Active Entresto 97-103 MG tablet 1 tablet. Active gabapentin (Neurontin) 300 MG capsule Take 600 mg by mouth at bedtime. 023 Active metFORMIN XR (Glucophage-XR) 500 MG 24 hr tablet TAKE TWO TABLETS TWICE DAILY IN THE MORNING AND AT BEDTIME WITH FOOD 360 tablet 1 024 Active TRUEplus Lancets 33G miscIndications: Type 2 diabetes mellitus with hyperlipidemia ([facility]/HCC) ([facility]) TEST BLOOD SUGAR THREE TIMES DAILY 100 each Active NovoLOG FLEXPEN 100 UNIT/ML penIndications:T ype 2 diabetes mellitus with hyperlipidemia ([facility]/HCC) ([facility]) INJECT 20 UNITS SUBCUTANEOUSLY BEFORE MEALS if BG 200+ PER prescriber's instructions. INJECT 30 UNITS if BG 300+ DIRECTED 60 mL Active Alcohol Swabs (Alcohol Prep) 70 % padsIndications: Type 2 diabetes mellitus with hyperglycemia, with long-term current use of insulin ([facility]) USE ONCE DAILY 100 each Active FREESTYLE LITE test stripIndications :Type 2 diabetes mellitus with diabetic polyneuropathy, with long-term current use of insulin ([facility]) TEST BLOOD SUGAR THREE TIMES DAILY DIRECTED 100 strip Active insulin pen needle (Easy Touch Pen [place]) 31G x 6 mm miscIndications: Type 2 diabetes mellitus with diabetic polyneuropathy, with long-term current use of insulin ([facility]) USE THREE DAILY 100 each Active Multiple Vitamin (Multivitamin) tablet TAKE ONE TABLET EVERY MORNING WITH FOOD 90 tablet 3 Active Almacone Double Strength 400-400-40 MG/5ML suspension TAKE FIVE ML BY MOUTH FOUR TIMES DAILY NEEDED Active baclofen (Lioresal) 10 MG tablet TAKE ONE TABLET EVERY NIGHT AT BEDTIME Active carvedilol (Coreg) 6.25 MG tablet Take 6.25 mg by mouth with breakfast and with evening meal. Active Santyl 250 UNIT/GM ointment APPLY TOPICALLY TO AFFECTED AREA(s) ONCE DAILY Active Tresiba FlexTouch 200 UNIT/ML injection INJECT 34 UNITS SUBCUTANEOUSLY AT BEDTIME Active isosorbide mononitrate ER (Imdur) 30 MG 24 hr tablet Take 30 mg by mouth in the morning. Active Xiidra 5 % solution PLACE ONE DROP IN EACH EYE TWICE DAILY Active Linzess 290 MCG capsule Take 290 mcg by mouth in the morning. Active metoclopramide (Reglan) 5 MG tablet TAKE ONE TABLET in the morning, at noon, in the evening, and at bedtime (BEFORE MEALS) Active pantoprazole (ProtoNix) 40 MG EC tablet Take 40 mg by mouth 2 times daily. Active rosuvastatin (Crestor) 20 MG tablet Take 40 mg by mouth in the morning. Active Mounjaro 10 MG/0.5ML solution pen-injector INJECT ONE PEN (=10MG) SUBCUTANEOUSLY ONCE A WEEK DIRECTED Active melatonin 10 MG tablet Take 1 tablet by mouth at bedtime. Purchases [facility] Active Blood Glucose Monitoring Suppl (RegeneRxe) w/Device kit Use to test blood sugar TID dx dm 1 kit Active cetirizine (ZyrTEC) 10 MG tabletIndication s:Rhinitis, unspecified type Take once daily as needed 30 tablet Active Aspirin Adult Low Strength 81 MG EC tabletIndication s:Type 2 diabetes mellitus with hyperglycemia, with long-term current use of insulin ([facility]) TAKE ONE TABLET EVERY MORNING 90 tablet 3 025 Active levothyroxine (Synthroid, Levoxyl) 137 MCG tabletIndication s:Hypothyroidism , unspecified type TAKE ONE TABLET EVERY MORNING 90 tablet 1 025 Active cetirizine (ZyrTEC) 10 MG tabletIndication s:Subacute cough Take 1 tablet (10 mg) by mouth in the morning. As needed for cough. Take daily for 1 week then as needed. 20 tablet 023 2024 Discontinued(R eotylerer (will not trigger notification to Pharmacy)) aspirin (Aspirin Adult Low Strength) 81 MG EC tabletIndication s:Type 2 diabetes mellitus with hyperglycemia, with long-term current use of insulin ([facility]) Take 1 tablet (81 mg) by mouth in the morning. 90 tablet 3 024 2024 Discontinued levothyroxine (Synthroid, Levoxyl) 137 MCG tabletIndication s:Hypothyroidism , unspecified type TAKE ONE TABLET EVERY MORNING 90 tablet 1 024 2024 Discontinued escitalopram (Lexapro) 5 MG tabletIndication s:Depression, recurrent (CMS/HCC) Take 1 tablet (5 mg) by mouth Once per day. For depression/anxie ty 30 tablet 2 024 2024 Discontinued(S ale effects) Active Problems Problem Noted Date Diagnosed Date Neuropathy of left lower extremity 12/05/2024 Demyelinating neuropathy 12/05/2024 Overview (12/05/2024): on NCS 2021, 2023 LLE Type 2 diabetes mellitus with hyperlipidemia ([facility]/HCC) 12/05/2024 Chronic osteomyelitis 05/17/2024 Class 1 obesity 05/17/2024 Dysphagia 05/17/2024 Endometrial polyp 05/17/2024 Family history of cirrhosis of liver 05/17/2024 Osteoarthritis of left acromioclavicular joint 0 05/17/2024 Osteoarthritis of right shoulder 05/17/2024 Uterine myoma 05/17/2024 Vertigo 05/17/2024 Gastroparesis 03/18/2024 Overview (03/18/2024): gastric emptying study 03/02/24 via GI w/ 78% retention at 4 hours Preoperative clearance 11/19/2023 Assessment & Plan (11/19/2023 9:41 AM EST): Patient is here for a preoperative exam Patient is scheduled for: endometrial sampling via hysteroscopy D C possible polypectomy versus endometrial biopsy On: TBD By: CAR SHAGGER Anesthesia: General After careful review of patient's most recent laboratory tests: BMP 09/2023 EKG: IVCD, PSV complexes, LAFB And today's Physical examination wnl Plan: Pt to be referred for cadiac clearance with Dr doe prior to procedure under general anesthesia, pt apparently had a Holter monitor recently and we do not have the results, once cleared by cardiology she can go ahead with procedure Office Office Heart failure with reduced ejection fraction 03/2024 Overview (02/10/2024): Entresto 97-103mg daily Carvedilol 6.25mg daily (we previously confirmed w/ cards this was daily and not BID, but per latest cards note, states BID, though then QD on their med list, will clarify) Jardiance 25mg Spironolactone 12.5mg daily Stress test w/ nuclear imaging 05/2023 Normal Regadenoson stress test with nuclear imaging.?The patient had no chest pain and no EKG changes suggestive ischemia. Nuclear imaging revealed no areas of ischemia or infarction. TID was normal at 1.01. There is severe coronary artery calcification noted in the LAD. Gated PET imaging was performed which demonstrated normal LV function and thickening with a calculated LVEF of 57 % at rest and 60 % at stress Echocardiogram February 21, 2022 with [facility]. This showed hypokinesis of the basal to mid inferior septal wall and basal to mid anteroseptal wall with mildly reduced left ventricular systolic function with LVEF of 40 to 45% with mild diastolic relaxation abnormality. No significant valve disease. Mild ascending aorta dilatation 3.7 cm Assessment & Plan (11/19/2023 9:29 AM EST): Under the care of [employer] Lecturer Rob Doe. Last seen 04/2023. Last ECHO with reduced EF. Scheduled for procedure under general anesthesia. EKG today shows : Premature SV complexes, IVCD , LAFB. I have no other EKGs to compare to Will refer to Dr Doe for Cardiac Clearance and optimization prior to procedure Coronary artery disease 08/17/2023 08/17/20 23 Overview (02/10/2024): [employer] Lecturer Dr. Doe Baseline ECG: SR, possible prior septal infarct Stress test 06/04/2023 IMPRESSION: Normal Regadenoson stress test with nuclear imaging.?The patient had no chest pain and no EKG changes suggestive ischemia. Nuclear imaging revealed no areas of ischemia or infarction. TID was normal at 1.01. There is severe coronary artery calcification noted in the LAD. Gated PET imaging was performed which demonstrated normal LV function and thickening with a calculated LVEF of 57 % at rest and 60 % at stress. GERD (gastroesophageal reflux disease) 3 08/17/2023 Inguinal lymphadenopathy 08/17/2023 023 Neuropathy 08/17/2023 08/17/2023 Paresthesia 08/17/2023 08/17/2023 Restless legs syndrome (RLS) 08/17/202312/2022 Tubular adenoma of colon 08/17/2023 023 Urinary incontinence 08/17/2023 08/17/2023 Depression, recurrent 08/17/2023 08/17/2023 Diabetic polyneuropathy 08/17/2023 08/17/20 HTN (hypertension) 08/17/2023 08/17/2023 Hyperlipidemia 08/17/2023 08/17/2023 Chronic idiopathic constipation 03/20/2023 Diabetic polyneuropathy asso ciated with type 2 diabetes mellitus 03/20/2023 Overview (02/10/2024): 11/24/22 foot exam decreased sensation to monofilament Lyrica 75mg daily (Plus Gabapentin 600mg at bedtime from neurology), this is uncommon but not theoretically unsafe if pt tolerating, will likely recommend consolidation to gabapentin only at f/u Assessment & Plan (11/19/2023 8:35 AM EST): Follows w/ endo Dr. Cho. Meds include: Pt recommended to Hold Metformin and Jardiance the day of the procedure Inject only 15 units of lantus the night prior to the procedure Closed fracture of bone of left foot 03/20/2023 History of osteomyelitis 11/24/2022 Carpal tunnel syndrome 06/03/2012 Celiac disease 06/03/2012 Depressive disorder 06/03/2012 Type 2 diabetes mellitus wit h diabetic polyneuropathy, with long-term current use of insulin 06/03/2012 08/17/2023 Overview (02/10/2024): [facility] endocrinology Metformin XR 500mg 2 tabs AM/PM Lantus 30 units daily NovoLog 30 units before meals (we have this as 20 units unless BG 300+) Jardiance 25mg mounjaro 7.5mg weekly (plan to increase to 10mg Spring 2023) On statin, ASA (pt has known CAD), ARB (entresto) Hypertension 06/03/2012 Assessment & Plan (11/19/2023 9:30 AM EST): Pt on Carvedilol once daily ( as per [employer] Lecturer) Once cleared by Cardiology the instruction is for patient to take her Carvedilol with a sip of water the morning of the procedure to prevent her BP from going up. Hypertriglyceridemia 06/03/2012 Hypothyroidism 06/03/2012 Obstructive sleep apnea syndrome 06/03/2012 Postmenopausal bleeding 06/03/2012 Encounters * This document contains information received from the source organization and may not represent a complete record from that organization. Date Type Department Care Team Description 12/09/2024 Refill [facility] [address] [place] [phone] Justin Lopez ANP Type 2 diabetes mellitus with hyperglycemia, with long-term current use of insulin ([facility]); Hypothyroidism, unspecified type 12/05/2024 11:00 AM EDT Office Visit [address] [phone] Justin Lopez ANP Neuropathy of left lower extremity (Primary Dx); Rhinitis, unspecified type; Demyelinating neuropathy; Type 2 diabetes mellitus with hyperlipidemia ([facility]) ([facility]); Depression, recurrent ([facility]) 12/05/2024 Travel 11/30/2024 Orders Only GENERIC EXTERNAL DATA DEPARTMENT Provider, Generic External Data 11/30/[address] [address] Justin Lopez ANP 09/30/2024 Orders Only GENERIC EXTERNAL DATA DEPARTMENT Provider, Generic External Data 09/21/2024 Orders Only [address] [address] Justin Lopez ANP from Last 3 Months Immunizations Name Administration Dates Next Due Hep B, adult 12/18/2009,08/14/2009,06/29/2009 Influenza High-dose Quadriva lent Preservative Free 06/12/2023,06/13/2022 Influenza, High Dose Seasona l, Preservative Free 07/21/2024 Influenza, Split (incl. jaison fied surface antigen) 06/03/2012 MMR 12/18/2009,11/15/2009 Moderna Covid-19 Vaccine 12+ 02/11/2022 Moderna Covid-19 Vaccine 6+ Bivalent 08/09/2022 Pfizer Covid-19 Vaccine 12+ 10/20/2023 Pneumococcal Conjugate PCV 20 11/24/2022 Pneumococcal Polysaccharide PPSV23 08/02/2007 TD (adult), 2 Lf tetanus tox oid, preservative free, adsorbed 08/14/2009 Tdap 11/25/2021 Family History Medical History Relation Name Comments Diabetes Father Hypertension Father Diabetes Mother Hypertension Mother Cirrhosis Other multiple family members, did not drink etoh Lymphoma Sister Relation Name Status Comments Father Mother Other Sister Social History Tobacco Use Types Packs/Day Years Used Date Smoking Tobacco: Never Passive Smoke Exposure: Never Smokeless Tobacco: Never Tobacco Cessation:Counseling Given: Not Answered Alcohol Use Standard Drinks/Week Comments Never 0 (1 standard drink = 0.6 oz pur e alcohol) Alcohol Answer Date Recorded Frequency of Alcohol Consumption Not on file 02/26/2024 Average Number of Drinks Not on file 024 Frequency of Binge Drinking Not on file 02/12 Score 0 02/26/2024 Depression Answer Date Recorded Patient Health Questionnaire-9 Score 16 12/05/2024 Patient Health Questionnaire-9 Score 16 12/05/2024 Last PHQ-9: Questionnaire Data Not on file 0 12/05/2024 Housing Stability Answer Date Recorded What is your housing situation today? I have rena benites 06/29/[address] you li ve. Do you have problems with any of the following? None of the above 06/29/2023 Food Insecurity Answer Date Recorded Within the past 12 months, y ou worried that your food would run out before you got money to buy more: Often true 03/08/2024 Within the past 12 months,th e food you bought just didn't last and you didn't have enough money to get more: Often true Transportation Answer Date Recorded In the past 12 months, has l ack of transportation kept you from medical appts, meetings, work or from getting things needed for daily living? No 06/29/2023 Utilities Answer Date Recorded In the past 12 months, has t he electric, gas, oil or water company threatened to shut off services in your home? No 06/29/2023 Depression Answer Date Recorded Patient Health Questionnaire-2 Score 5 12/05/2024 Internet Access Answer Date Recorded Internet Access Q1 Yes 05/13/2024 Internet Access Q2 Not on file 05/13/2024 Comments No Sex and Gender Information Value Date Recorded Sex Assigned at Female 07/14/2022 10:18 AM EDT Legal Sex Female 10:18 AM EDT Gender Identity Female 07/14/2022 10:18 AM EDT Sexual Orientation Straight 07/14/2022 10 :18 AM EDT Last Filed Vital Signs Vital Sign Reading Time Taken Comments Blood Pressure 131/70 12/05/2024 10:31 AM EDT Pulse 77 12/05/2024 10:31 AM EDT Temperature 36.1 ??C (97 ??F) 12/05/2024 10:31 AM EDT Respiratory Rate 20 12/05/2024 10:31 AM EDT Oxygen Saturation 99% 12/05/2024 10:31 AM EDT Inhaled Oxygen Concentration - - Weight 88.2 kg (194 lb 6.4 oz) 12/05/2024 10:31 AM EDT Height 170.2 cm (5' 7 ) 12/05/2024 10:31 AM EDT Body Mass Index 30.45 12/05/2024 10:31 AM EDT Plan of Treatment Upcoming Encounters Date Type Department Care Team (Late st Contact Info) Description 12/16/2024 9:00 AM EDT Medication Management [facility] [address] [place] [phone] 03/09/2025 2:30 PM EDT Office Visit [facility] [address] [place] [phone] Justin Lopez, ANP [address] [place] [address] Health Maintenance Due Date Last Done Comments CT Colonography 1955 Colonoscopy 1955 Colorectal Cancer Screening 1955 Dental X-Ray: Bitewings 1955 Dental X-Ray: Full Mouth 1955 FIT DNA/Cologuard 1955 FIT 1955 FOBT 1955 Sigmoidoscopy 1955 Eye Exam 1965 Hepatitis C Screening 1973 Zoster Vaccines (1 of 2) 2005 RSV Patients and Patients Aged 60 years or older (1 - Risk 60-74 years 1-dose series) 2015 Dental Oral Exam 10/04/2023 04/02/2023 Dental Prophylaxis 10/04/2023 04/02/2023, 10/02/2022 COVID-19 Vaccine ( season) 2024 10/20/2023, 08/09/2022, 02/11/2022 Alcohol/Substance Use Screening 02/25/2025 02/26/2024 Diabetes: Foot Exam 02/25/2025 02/26/2024, 02/26/2024, 02/26/2024, Additional history exists Diabetes: Hemoglobin A1C 03/02/2025 025, 07/21/2024, 02/26/2024, Additional history exists SDOH Screening 03/08/2025 03/08/2024 Depression Monitoring (PHQ-9) 06/07/2025 12/05/2024, 12/05/2024 Mammogram 09/21/2025 09/21/2024, 04/2025, 09/18/2023, Additional history exists Diabetes: Urine Protein Screening 11/30/2025 11/30/2024, 10/26/2023, 10/28/2022 Lipid Panel 11/30/2025 11/30/2024, 10/15, 04/03/2023, Additional history exists Depression Screening 12/05/2025 12/05/2024, 12/06/19 Tobacco Screening 12/05/2025 12/05/2024 HPV/Cotest 11/25/2026 11/25/2021, 11/12, 11/25/2021, Additional history exists Pap Smear 11/25/2026 11/25/2021, 10/08/2021 DTaP/Tdap/Td Vaccines (2 - Td or Tdap) 11/26/2031 11/25/2021, 08/14/2009 Hepatitis B Vaccines Completed 12/18/2009, 08/14/2009, 06/29/2009 Pneumococcal Vaccine: 50+ Years Completed 11/24/2022, 08/02/2007 Influenza Vaccine Completed 07/21/2024, , 06/13/2022, Additional history exists HIB Vaccines Aged Out No longer eligi ble based on patient's age to complete this topic HPV Vaccines Aged Out No longer eligi ble based on patient's age to complete this topic Hepatitis A Vaccines Aged Out No long er eligible based on patient's age to complete this topic IPV Vaccines Aged Out No longer eligi ble based on patient's age to complete this topic Meningococcal Vaccine Aged Out No vivek lulu eligible based on patient's age to complete this topic RSV under 20 months Aged Out No longe r eligible based on patient's age to complete this topic Rotavirus Vaccines Aged Out No longer eligible based on patient's age to complete this topic Procedures Procedure Name Priority Date/Time Associated Diagnosis Comments TSH Routine 11/30/2024 8:48 AM EDT LIPID PANEL, STANDARD Routine 11/30/2024 8:48 AM EDT CREATININE, RANDOM URINE Routine 11/30/2024 8:48 AM EDT HEMOGLOBIN A1C Routine 11/30/2024 8:48 AM EDT C-REACTIVE PROTEIN Routine 11/30/2024 8: 48 AM EDT History of osteomyelitis SED RATE BY MODIFIED WESTERGREN Routine 11/30/2024 8:48 AM EDT History of osteomyelitis GLUCOSE, WHOLE BLOOD Routine 09/30/2024 1:32 PM EST BI MAMMOGRAM SCREENING TOMOSYNTHESIS BILATERAL Routine 09/21/2024 1:15 PM EST PROPHYLAXIS - ADULT Routine 04/02/2023 1 :00 PM EDT Encounter for dental examination PERIODIC ORAL EVALUATION - ESTABLISHED PATIENT Routine 04/02/2023 1:00 PM EDT HM PAP/HPV Routine 11/25/2021 from Last 3 Months or Most Recently Relevant to Health Maintenance Results * Creatinine, Random Urine (11/30/2024 8:48 AM EDT) Creatinine, Urine 73.79 mg/dL [facility] 11/30/2024 8:48 AM EDT 11/30/2024 2:07 PM EDT Generic External Data Provider LAB URINE ORDERAB LES Final Result Performing Organization Address [facility] de Phone Number [facility] [address] [place] [phone] * (ABNORMAL) Sed Rate by Modified Ehergren (11/30/2024 8:48 AM EDT) Erythrocyte Sedimentation Rate 28(H) 0 - 20 MM/HR [facility] Comment:Patients with polycy themia and many hemoglobin abnormalitiesmay have depressed sed rates whereas patients with anemiamay have elevated sed rates. Blood Venous blood specimen / Unknown 11/30/2024 8:48 AM EDT 11/30/2024 2:17 PM EDT Justin Lopez ANP LAB BLOOD ORDERABLES Final Resul t Performing Organization Address [facility] de Phone Number [facility] [address] [place] [phone] * C-reactive Protein (11/30/2024 8:48 AM EDT) C Reactive Protein 0.10 < or = 0.50 mg/dL [facility] Blood Venous blood specimen / Unknown 11/30/2024 8:48 AM EDT 11/30/2024 2:17 PM EDT Justin Lopez ANP LAB BLOOD ORDERABLES Final Resul t Performing Organization Address [facility] Co de Phone Number [facility] [address] [place] [phone] * TSH (11/30/2024 8:48 AM EDT) Thyroid Stimulating Hormone 2.14 0.32 - 4.0 uIU/mL [facility] Comment:TSH 3rd Generation ( [facility]) 11/30/2024 8:48 AM EDT 11/30/2024 2:17 PM EDT Generic External Data Provider LAB BLOOD ORDERAB LES Final Result Performing Organization Address [facility] Co de Phone Number [facility] [address] [place] [phone] * (ABNORMAL) Hemoglobin A1c (11/30/2024 8:48 AM EDT) Hemoglobin A1c 7.4(H) <6.0 % [facility] Comment:Hemoglobin A1C Refer ence Range Adults: 4.8 - 6.0 % Non diabetic: < 6.0 % Goal: < 7.0 %Additional Action Suggested: > 8.0 %Note: Hemoglobin A1c results are invalid for patients with abnormal amounts of HbF. Blood transfusions may impact the HbA1c concentration in the patient sample. Estimated Average Glucose 166 mg/dL [facility] Comment:eAG = Estimated ave rage glucose which is %A1C expressed asaverage glucose, using the formula of the [id number] Glucose study (ADAG), Diabetes Care, Vol.31,#8,2007 11/30/2024 8:48 AM EDT 11/30/2024 2:17 PM EDT Generic External Data Provider LAB BLOOD ORDERAB LES Final Result Performing Organization Address [facility] Co de Phone Number [facility] [address] [place] [phone] * (ABNORMAL) Lipid Panel, Standard (11/30/2024 8:48 AM EDT) Triglycerides 146 <150 mg/dL [facility] Comment:Desirable Triglyceri de: less than 150 mg/dLBorderline High Triglyceride 150-199 mg/dLHigh Triglyceride: 200-499 mg/dLVery High Triglyceride: greater than or equal to 5OO mg/dL Cholesterol 206(H) <200 mg/dL [facility] Comment:Desirable Cholestero l: less than 200 mg/dLBorderline High Cholesterol: 200-239 mg/dLHigh Cholesterol: greater than 239 mg/dL LDL Cholesterol Calculated 125(H) <100 mg/dL [facility] Comment:Desirable LDL: less than 100 mg/dLNear Optimal/Above Optimal LDL: 110- 129 mg/dLBorderline High LDL: 130-159 mg/dLHigh LDL: 160-189 mg/dLVery High LDL: greater than or equal to 190 mg/dL HDL Cholesterol 52 >40 mg/dL [facility] Comment:Desirable HDL: great er than 40 mg/dL Note: This HDL assay may give artificially low results in patients with liver disease. 11/30/2024 8:48 AM EDT 11/30/2024 2:17 PM EDT Generic External Data Provider LAB BLOOD ORDERAB LES Final Result Performing Organization Address [facility] Co de Phone Number [facility] [address] [place] [phone] * (ABNORMAL) Glucose, Whole Blood (09/30/2024 1:32 PM EST) Glucose, Whole Blood 162(H) 60 - 115 mg/dL [facility] Comment:METER #: [id number] 5Testing performed in the Endocrinology Department [address] , [address], [facility]. 09/30/2024 1:32 PM EST 09/30/2024 1:40 PM EST Generic External Data Provider LAB BLOOD ORDERAB LES Final Result Performing Organization Address [facility] Co de Phone Number [facility] [address] [place] [address] [phone] * BI Mammogram Screening Tomosynthesis Bilateral (09/21/2024 1:15 PM EST) Anatomical Region Laterality Modality Breast Bilateral Mammography 09/21/2024 1:15 PM EST Narrative 09/28/2024 8:33 AM EST ? [facility] ? [address] ?[place] [address] ? Mammography Report ? Signed ? Patient: Osullivan Michele,Bozena N ?MR#: [id number] ?? [id number] ? : 1955 ?Acct:[id number] ? Age/Sex: 68 / F ?ADM Date: 09/21/24 ? Loc: HO.MAMMO ? Attending Dr: Justin Lopez MACHINIST BRAKE ? Ordering Physician: JUSTIN LOPEZ NP ?Results: 2Benign Fin ?? dings ? Date of Service: 09/21/24 ?Follow Up: 1 Year From Orig ?? inal Mammogram ? Procedure(s): MM tomosynthesis screening BI ?? Accession Number(s): [id number] ? cc: JUSTIN LOPEZ NP ? EXAMINATION: ?? MM SCREENING DIGITAL BREAST TOMOSYNTHESIS, BILATERAL ? CLINICAL INFORMATION: ? Screening. Asymptomatic. ? COMPARISON: ?? Mammography: Comparison is made with available priors ? TECHNIQUE: ?? Digital breast mammography with tomosynthesis is performed in both the ?? craniocaudal and mediolateral oblique views along with computer-aided ?? detection (CAD). ? FINDINGS: ?? There are scattered areas of fibroglandular density (ACR BI-RADS breast ?? composition Category b). ?? Bilateral reduction mammoplasty. ?? There are no significant masses, abnormal calcifications, or other ?? abnormalities. ? MM/MM tomosynthesis screening BI ?? IMPRESSION: ?? No mammographic evidence of malignancy. ? ASSESSMENT: ? BI-RADS BI-RADS 2 - Benign Findings ? RECOMMENDATION: ?? Routine annual mammography screening. ? 1 year F/U ? This examination should not preclude the clinical evaluation of a ?? suspicious palpable abnormality. ? This patient's information was entered into a reminder system with a ?? target due date for their next mammogram. ? Electronically signed by: ??Izabel Suarez DO ??09/28/2024 08:30 AM EST ?? RP ? Dictated By: ?Izabel Suarez DO ? Signed By: ?<Electronically signed by Izabel Suarez, DO in OV> ? 09/28/24 0830 ? DD/ 1315 ? TD/TT: 09/21/24 1329 ? Natural Gas Technician: ? Procedure Note Donortizinterpreter, Image - 09/28/2024 Alejandra [facility] [address] [place] [address] Mammography Report Signed Patient: Bozena Gupta NMR#: [id number] : 6Acct:[id number] Age/Sex: 68 / FADM Date: 09/21/24 Loc: [facility] Attending Dr: Justin Lopez NP Ordering Physician: JUSTIN LOPEZ NPResults: 2Benign Wilian arce Date of Service: 09/21/24Follow Up: 1 Year From Orig inal Mammogram Procedure(s): MM tomosynthesis screening BI Accession Number(s): [id number] cc: JUSTIN LOPEZ NP EXAMINATION: MM SCREENING DIGITAL BREAST TOMOSYNTHESIS, BILATERAL CLINICAL INFORMATION: Screening. Asymptomatic. COMPARISON: Mammography: Comparison is made with available priors TECHNIQUE: Digital breast mammography with tomosynthesis is performed in both the craniocaudal and mediolateral oblique views along with computer-aided detection (CAD). FINDINGS: There are scattered areas of fibroglandular density (ACR BI-RADS breast composition Category b). Bilateral reduction mammoplasty. There are no significant masses, abnormal calcifications, or other abnormalities. MM/MM tomosynthesis screening BI IMPRESSION: No mammographic evidence of malignancy. ASSESSMENT: BI-RADS BI-RADS 2 - Benign Findings RECOMMENDATION: Routine annual mammography screening. 1 year F/U This examination should not preclude the clinical evaluation of a suspicious palpable abnormality. This patient's information was entered into a reminder system with a target due date for their next mammogram. Electronically signed by: Izabel Suarez DO 09/28/2024 08:30 AM EST Dictated By: Izabel Suarez DO Signed By: <Electronically signed by Izabel Suarez DO in OV> 09/28/24 0830 DD/ 1315 TD/TT: 09/21/24 1329 Natural Gas Technician: Justin Kimi BILLINGSLEY IMDestiny BI PROCEDURES Final Result * Pap Smear (11/25/2021) Pap Negative for intraephithelial lesion or malignancy Negative for intraephithelial lesion or malignancy, Other HPV Undetected Historical Provider HEALTH MAINTENANCE Edited Result - Final from Last 3 Months or Most Recently Relevant to Health Maintenance Insurance [facility] Care Teams Supervisor Safety Deposit Relationship Specialty Start Date End Date Justin Lopez ANP [address] [place] [id number] PCP - General Family Medicine 10/10/21
--- OUTSIDE RECORDS SUMMARY | 2024-12-14 12:20 | XMS_ITS ---
Author Organization [facility] Address [address] [place] [address] Care Team Providers Care Career Development Facilitator Name Role Phone [email or web address], DNF Primary Care Provider Unavailab Juliette Rodriguez Unavailable [phone] RANDAL [place] Unavailable Unavailable Migration, Provider Unavailable Unavailable REASON FOR VISIT [facility] To [facility] Conversion Encounter Medications Medication SIG (Take, Route, Frequency, Duration) Notes Start Date End Date Status Spironolactone 25 MG 1 tab(s) orally 2 times a day for 30 day(s) Active Clopidogrel Bisulfate 75 MG 1 tab(s) orally once a day for 30 day(s) Active Dicyclomine HCl 10 MG 2 cap(s) orally 4 times a day for 90 days 09/28/2019 Active TRILYTE WITH FLAVOR PACKS - 240 ML ORALLY EVERY 15 MINUTES for 16 DOSE(S) *Please review for potential replacement for e-prescription and drug interaction check* 07/05/2019 Not-Taking metFORMIN HCl 1000 MG 1 tab(s) orally 2 times a day for 30 day(s) Active Carvedilol 6.25 MG 1 tab(s) orally 2 times a day for 30 day(s) Active Furosemide 20 MG 1 tab(s) orally once a day for 30 day(s) Active Losartan Potassium-HCTZ 50-12.5 MG 1 tab(s) orally once a day for 30 day(s) Active Levothyroxine Sodium 100 MCG 1 tab(s) orally once a day for 30 day(s) Active Atorvastatin Calcium 20 MG 1 tab(s) orally once a day for 30 day(s) Active Aspirin 81 MG 1 tab(s) chewed once a day for 30 day(s) Active Glimepiride 4 MG 1 tab(s) orally once a day for 30 day(s) Active Lantus 100 UNIT/ML 0 subcutaneously 70 UNITS Active Trulicity 0.75 MG/0.5ML as directed subcutaneously once a week Active Problems No Known Problems Encounters Encounter Location Date Provider Diagnosis [facility] [address] [place] [address] 06/04/2024 Provider Migration Abdominal pain, epigastric R10.13 Assessments Encounter Date Diagnosis (ICD Code) Assessment Notes Treatment Notes Treatment Clinical Notes Section Notes 06/04/2024 Abdominal pain, epigastric (ICD-10 - R10.13) Plan Of Treatment Medication Medication Name Sig Start Date Stop Date Notes Dicyclomine HCl 10 MG 2 cap(s) orally 4 times a day for 90 days 09/28/2019 Progress Notes * VANESSA BARKER NDOB:1955 (69 yo F)Acc No.[id number]:06/04/2024 Patient:?VANESSA BARKER N Provider:? :1955???Age:68 Y???Sex:Female D ate:06/04/2024 Address:[address] [place] [address] [address] Pcp:DEANA Manriquez Subjective: * Chief Complaints: * ???1. [facility] Con version Encounter. * Medical History:? * Medications:?Taking Trulicit y 0.75 MG/0.5ML Solution Pen-injector as directed subcutaneously once a week , Taking Lantus 100 UNIT/ML Solution 0 subcutaneously , Notes to Pharmacist: 70 UNITS, Taking Glimepiride 4 MG Tablet 1 tab(s) orally once a day , Taking Aspirin 81 MG Tablet Chewable 1 tab(s) chewed once a day , Taking Levothyroxine Sodium 100 MCG Tablet 1 tab(s) orally once a day , Taking Losartan Potassium-HCTZ 50-12.5 MG Tablet 1 tab(s) orally once a day , Taking Furosemide 20 MG Tablet 1 tab(s) orally once a day , Taking Carvedilol 6.25 MG Tablet 1 tab(s) orally 2 times a day , Taking Atorvastatin Calcium 20 MG Tablet 1 tab(s) orally once a day , Taking Clopidogrel Bisulfate 75 MG Tablet 1 tab(s) orally once a day , Taking Spironolactone 25 MG Tablet 1 tab(s) orally 2 times a day , Taking metFORMIN HCl 1000 MG Tablet 1 tab(s) orally 2 times a day , Not-Taking TRILYTE WITH FLAVOR PACKS - POWDER FOR RECONSTITUTION 240 ML ORALLY EVERY 15 MINUTES , Notes to Pharmacist: *Please review for potential replacement for e-prescription and drug interaction check* Objective: * Vitals:? Assessment: * Assessment: 1.?Abdominal pain, epigastri c - R10.13 (Primary)??? Plan: * Treatment: * Billing Information: * Visit Code:? * Procedure Codes:? * Electronic signature of Prov ider Migration on 12/14/2024 at 12:20 PM EDT Sign off status: Pending * Provider:? Date:?06/04/2024 Generated for Remy gannon/Alyse/Maximilianoitting on:?12/14/2024 12:20 PM EDT
--- OUTSIDE RECORDS SUMMARY | 2024-12-14 12:20 | XMS_ITS | Encounter Summary ---
Author Organization [employer] Address [address] [place] [address] Care Team Providers Care Associate Director Career Services Name Role Phone Carin Bolden Primary Care Provider [phone] Reason for Visit * Reason Comments Med Refill Encounter Details Date Type Department Care Team (Late st Contact Info) Description 02/19/2023 Refill [facility] [address] [place] [address] [phone] Valentina Escobedo MD [address] [place] [address] [phone] Social History Tobacco Use Types Packs/Day Years Used Date Smoking Tobacco: Never Passive Smoke Exposure: Never Smokeless Tobacco: Never Alcohol Use Standard Drinks/Week Comments Never 0 (1 standard drink = 0.6 oz pur e alcohol) Comments Unknown Sex and Gender Information Value Date Recorded Sex Assigned at Female 07/14/2022 10:18 AM EDT Legal Sex Female 10:18 AM EDT Gender Identity Female 07/14/2022 10:18 AM EDT Sexual Orientation Straight 07/14/2022 10 :18 AM EDT documented as of this encounter Plan of Treatment Upcoming Encounters Date Type Department Care Team (Late st Contact Info) Description 12/16/2024 9:00 AM EDT Medication Management [facility] [address] [place] [address] [phone] 03/09/2025 2:30 PM EDT Office Visit [facility] [address] [place] [address] [phone] Carin Bolden ANP [address], [place] [phone] documented as of this encounter Visit Diagnoses Not on filedocumented in this encounter Care Teams Associate Director Career Services Relationship Specialty Start Date End Date Carin Bolden ANP [address] [place] [address] PCP - General Family Medicine 10/10/21 documented as of this encounter
--- OUTSIDE RECORDS SUMMARY | 2024-12-14 12:20 | XMS_ITS | Encounter Summary ---
Author Organization [employer] [facility] Address [address] [facility] [address] [place] [address] Care Team Providers Care Preparer Making Department Name Role Phone Carin Bolden Primary Care Provider [phone] Encounter Details Date Type Department Care Team (Latest Contact Info) Description 02/17/2022 Abstract [facility] Dental, Provider, DDS Social History Tobacco Use Types Packs/Day Years Used Date Smoking Tobacco: Never Assessed Comments Unknown Sex and Gender Information Value [...] Description 12/16/2024 9:00 AM EDT Medication Management [facility] [address] [place] [address] 03/09/2025 2:30 PM EDT Office Visit [facility] [address] [place] [address] Carin Bolden ANP [address] [place] [address] documented as of this encounter Visit Diagnoses Not on filedocumented in this encounter Care Teams Preparer Making Department Relationship Specialty Start Date End Date Carin Bolden ANP [address] [place] [address] PCP - General Family Medicine 10/10/21 documented as of this encounter
--- OUTSIDE RECORDS SUMMARY | 2024-12-14 12:20 | XMS_ITS | Encounter Summary ---
Author Organization [employer] Address [address] [facility] [place] [address] Care Team Providers Care Customer Business Manager Name Role Phone Kimi Carin BILLINGSLEY Primary Care Provider [phone] Reason for Visit * Reason Comments Med Refill Encounter Details Date Type Department Care Team ([facility] st Contact Info) Description 08/16/2024 Refill [facility] [address] [place], [place] [phone] Lori Bee MD [address] [place] [address] Carpal tunnel syndrome, unspecified laterality Social History Tobacco Use Types Packs/Day Years [...] Answer Date Recorded Patient Health Questionnaire-9 Score 8 02/26/2024 Patient Health Questionnaire-9 Score 8 02/26/2024 Last PHQ-9: Questionnaire Data Not on file 0 02/26/2024 Housing Stability Answer Date Recorded What is [...] Answer Date Recorded Patient Health Questionnaire-2 Score 2 02/26/2024 Internet Access Answer Date Recorded Internet Access [...] Description 12/16/2024 9:00 AM EDT Medication Management [facility] [address] [place] [phone] 03/09/2025 2:30 PM EDT Office Visit [facility] [address] [place] [phone] Carin Bolden ANP [address] [place] [address] documented as of this encounter Visit Diagnoses Diagnosis Carpal tunnel syndrome, unspecified laterality documented in this encounter Additional Health Concerns Assessment Noted Time PHQ-9 Depression Total Score: 8 02/26/20 24 10:46 AM EDT documented as of this encounter Care Teams Customer Business Manager Relationship Specialty Start Date End Date Carin Bolden ANP [address] [place] [phone] PCP - General Family Medicine 10/10/21 documented as of this encounter
--- OUTSIDE RECORDS SUMMARY | 2024-12-14 12:20 | XMS_ITS | Clinical Summary ---
Author Organization [facility] Address [address] [place] [address] Care Team Providers Care Slide Fasteners Inspector Name Role Phone Carin Bolden NP Primary Care Provider Allergies No known active allergies Medications aspirin 81 mg EC tablet Take 81 mg by mouth daily. Active carvediloL (COREG) 6.25 mg tablet Take 1 Tablet by mouth 2 times daily. 4 Active empagliflozin (Jardiance) 25 mg tablet Take 25 mg by mouth daily. 3 Active insulin NPH-insulin regular (HumuLIN 70/30 U-100 Insulin) 100 unit/mL (70-30) injection Inject into the skin 2 times daily. Active levothyroxine (SYNTHROID, LEVOTHROID) 137 mcg tablet Take 137 mcg by mouth daily. Active loratadine 10 mg capsule Take 10 Tabs by mouth every morning. Active metFORMIN (GLUCOPHAGE) 1,000 mg tablet Take 1 Tablet by mouth 2 times daily (with meals). Active plecanatide (Trulance) 3 mg tablet Take 1 Tablet by mouth daily. Active pregabalin (LYRICA) 75 mg capsule Take by mouth as needed. Active rosuvastatin (CRESTOR) 40 mg tablet Take 1 Tablet by mouth daily. 4 Active sacubitriL-valsa rtan (Entresto) 97-103 mg per tablet Take 97-103 mg by mouth 2 times daily. 4 Active spironolactone (ALDACTONE) 25 mg tablet Take 0.5 Tablets by mouth every other day. 4 Active tirzepatide (Mounjaro) 7.5 mg/0.5 mL injection Inject into the skin. Dose increased Active insulin glargine (Lantus U-100 Insulin) 100 unit/mL injection Inject 44 Units into the skin 2 times daily. Active blood pressure monitor (Blood Pressure Kit) kit 1 Each by Does not apply route Once. 3 Active isosorbide mononitrate (IMDUR) 30 mg 24 hr tablet Take 1 tablet (30 mg total) by mouth 1 (one) time each day in the morning. 90 tablet 1 5 Active Active Problems Problem Noted Date Diagnosed Date Palpitations 08/28/2023 Overview (09/27/2024): Last Assessment & Plan: Patient Dors is resolution of palpitations. Recent 30-day Holter monitor as outlined above did not reveal any sustained arrhythmias. Continue on carvedilol. She was encouraged to be mindful of her caffeine and alcohol intake as well as staying hydrated. Heart failure with reduced ejection fraction Overview (09/27/2024): Last Assessment & Plan: HFrEF-EF 45 to 50%, ACC/AHA stage C with NYHA class II symptoms. Last echocardiogram December 2023. Last ischemic evaluation: Left heart catheterization March 2024. GDMT Betablocker: Carvedilol 6.25 mg orally twice daily ZULEYMA Inhibitor-SAROJ/ARB/ARNI: Entresto 97/103 mg twice daily Diuretic: None Aldosterone antagonist: Spironolactone 12.5 mg every other day SGLT2 inhibitors: Empagliflozin 25 mg orally daily ICD: Not a candidate due to LVEF I've asked the patient to call if they develop worsening symptoms of heart failure such as increased shortness of breath, new or worsening cough, increased swelling in the legs or ankles, or weight gain of more than 2 pounds in one day or 4 pounds in one week. No changes to medical therapies given her blood pressure today. CAD (coronary artery disease) 12/02/2021 Overview (09/27/2024): w/ stent Last Assessment & Plan: The patient has a history of coronary artery disease status post coronary artery stent placement to the mid LAD in 2017 at [facility]. The patient had been reporting episodes of chest discomfort associated with shortness of breath. She underwent abnormal stress echocardiogram. Subsequently, she underwent a left heart catheterization March 2024 which showed mild to moderate nonobstructive coronary artery disease and IFR of the mid RCA was negative. Therefore, no intervention. On today's visit, she denies any further episodes of chest discomfort or shortness of breath. She has been feeling well from a cardiac standpoint. She denies any exertional or mononitrate 30 mg orally daily anginal symptoms. She continues on isosorbide, carvedilol, aspirin, and statin as prescribed. We discussed, in the future if she develops any further symptoms, we can consider increasing her antianginal therapies to optimize her medications given recent left heart catheterization result. Hypothyroid 12/02/2021 JEVON (obstructive sleep apnea) 12/02/2021 Overview (09/27/2024): Last Assessment & Plan: The patient has a history of obstructive sleep apnea. She recently completed her titration study. After the titration study, the patient said that she was started on CPAP therapy and she has been using it every night. Depression 05/09/2010 DM (diabetes mellitus) 05/09/2010 HTN (hypertension) 05/09/2010 Overview (09/27/2024): Last Assessment & Plan: Patient's blood pressure is well-controlled today. She will continue her current antiparkinson medication regimen as prescribed. No changes to medical therapies. Hyperlipidemia 05/09/2010 Overview (09/27/2024): Last Assessment & Plan: The patient has a history of hyperlipidemia as well as a history of coronary artery disease. She continues on rosuvastatin 20 mg orally daily. Will update a new fasting lipid panel to reassess her lipid control and make any adjustments as necessary. I have reviewed with the patient the importance of a heart healthy lifestyle which includes eating a low-fat low-salt diet, getting regular exercise, maintaining a healthy weight, not smoking, and following up with routine medical care. Encounters Date Type Department Care Team Description 10/18/2024 Telephone [facility] [address] [facility] [address] [place] [address] [facility] Mon[facility] Surgical History Surgery Date Site/Laterality Comments COLONOSCOPY 2006? PROCEDURE: [place] COLONOSCOPY FLX DX W/COLLJ SPEC WHEN PFRMD ESOPHAGOGASTRODUODENOSCOPY 05/13/2010 PROCEDURE: [place] EGD TRANSORAL BIOPSY SINGLE/MULTIPLE; COMMENT: Normal esophagus mucosa-biopsy:normal, small hiatal hernia, gastritis-biopsy:mild reactive gastropathy(HPylori-), nl duodenum-biopsy:increased intraepithelial T lymphocytes suggesting Celiac sprue Anderson Stage I KNEE SURGERY 2019 PROCEDURE: HISTORICAL KNEE SURGERY OTHER SURGICAL HISTORY PROCEDURE: HISTORY OTHER; COMMENT: Toe amputation on R foot OTHER SURGICAL HISTORY PROCEDURE: HISTORY OTHER; COMMENT: Breast reduction TUBAL LIGATION Bilateral PROCEDURE: HISTORICAL TUBAL LIGATION Medical History Medical History Date Comments Diabetes mellitus (CMS/HCC) DX:D iabetes mellitus (HCC) JEVON (obstructive sleep apnea) DX :JEVON (obstructive sleep apnea) Hypothyroid DX:Hypothyroid Vaginal spotting DX:Vaginal spot ting Atrophy of muscle of left lower leg DX:Atrophy of muscle of left lower leg CTS (carpal tunnel syndrome) DX: CTS (carpal tunnel syndrome) Celiac disease DX:Celiac diseas e Hypertriglyceridemia DX:Hypertri glyceridemia Depression DX:Depression Social History Tobacco Use Types Packs/Day Years Used Date Smoking Tobacco: Never Smokeless Tobacco: Never Alcohol Use Standard Drinks/Week Comments No 0 (1 standard drink = 0.6 oz pur e alcohol) Comments Unknown Sex and Gender Information Value Date Recorded Sex Assigned at Not on file Legal Sex Female 12:15 AM EST Gender Identity Not on file Sexual Orientation Not on file Obstetrics History Last Filed Vital Signs Vital Sign Reading Time Taken Comments Blood Pressure 107/70 04/15/2024 9:20 AM EDT Sit ting L Arm Pulse 82 04/15/2024 9:20 AM EDT Temperature - - Respiratory Rate - - Oxygen Saturation - - Inhaled Oxygen Concentration - - Weight 88.5 kg (195 lb) 04/15/2024 9:20 AM EDT Height 170.2 cm (5' 7 ) 04/15/2024 9:20 AM EDT Body Mass Index 30.54 04/15/2024 9:20 AM EDT Plan of Treatment Upcoming Encounters Date Type Department Care Team (Late st Contact Info) Description 02/15/2025 2:00 PM EDT Office Visit [facility] [address] [place] [id number] Rob Melendez MD [address] [place] [address] [place] [address] Health Maintenance Due Date Last Done Comments Breast Cancer Screening 1955 Diabetes: Annual Foot Exam 1965 Diabetes: Annual Retina Eye Exam 1965 Zoster Vaccines (1 of 2) 2005 RSV Immunization Adult Patients (1 - Risk 60-74 years 1-dose series) 2015 Colorectal Cancer Screening: Colonoscopy 08/14/2022 Falls Risk Assessment 08/14/2022 Hepatitis C Screening 08/14/2022 Medicare Annual Wellness Visit 08/14/2022 Osteoporosis Screening (Bone Density Screening) 08/14/2022 Social Influencers of Health Screening 08/14/2022 Diabetes: Annual Urine Albumin-Creatinine Ratio (uACR) 08/24/2022 COVID-19 Vaccine () 05/15/2024 10/20/2023, 08/09/2022, 02/11/2022 Diabetes: Blood Sugar Control Test (HGBA1C) 01/18/2025 07/21/2024 Depression Screening 02/25/2025 02/26/2024 Diabetes: Annual GFR (Glomerular Filtration Rate) 10/17/2025 10/17/2024, 03/08/2024, 03/08/2024 Hypertension/CHF/CAD Annual BMP Blood Test 10/17/2025 10/17/2024, 03/08/2024, 03/08/2024 Cholesterol Screening (Lipid Panel) 10/18/2029 10/18/2024, 10/26/2023, 08/06/2022 DTaP,Tdap,and Td Vaccines (3 - Td or Tdap) 11/26/2031 11/25/2021, 08/14/2009 Hepatitis B Vaccines Completed 12/18/2009, 08/14/2009, 06/29/2009 MMR Vaccines Aged Out 12/18/2009, 11/15/2009 No lo nger eligible based on patient's age to complete this topic Pneumococcal Vaccine: 50+ Years Completed 11/24/2022, 08/02/2007 [...] patient's age to complete this topic Meningococcal ACWY Vaccine Aged Out N o longer eligible based on patient's age to complete this topic Meningococcal B Vacine Aged Out No lo nger eligible based on patient's age to complete this topic RSV Immunization Patients Under 20 months Aged Out No longer eligible based on patient's age to complete this topic Varicella Vaccines Aged Out No longer eligible based on patient's age to complete this topic Procedures Procedure Name Priority Date/Time Associated Diagnosis Comments LIPID PANEL Routine 10/18/2024 8:03 AM EST COMPREHENSIVE METABOLIC PANEL Routine 10/17/2024 9:28 AM EST from Last 3 Months Results * (ABNORMAL) Lipid panel (10/18/2024 8:03 AM EST) Cholesterol Total 153 100 - 199 mg/dL [facility] Triglycerides 167(H) 0 - 149 mg/dL [facility] HDL Cholesterol 50 >39 mg/dL [facility] VLDL Cholesterol Calculated 28 5 - 40 mg/dL [facility] LDL Chol Calc (NIH) 75 0 - 99 mg/dL [facility] 10/18/2024 8:03 AM EST 10/18/2024 Narrative [facility] - 10/18/2024 11:06 PM EST Performed at: ??01 - [facility] [address] ??[id number] Cnp: Kelley Hughes MD, Phone: ??[phone] Michelle Arellano NP LAB BLOOD ORDERABLES Final Result [facility] * (ABNORMAL) Comprehensive metabolic panel (10/17/2024 9:28 AM EST) Glucose 202(H) 70 - 99 mg/dL [facility] Blood Urea Nitrogen (BUN) 35(H) 8 - 27 mg/dL [facility] Creatinine 0.90 0.57 - 1.00 mg/dL [facility] eGFR 69 >59 mL/min/1. 73 [facility] BUN/Creatinine Ratio 39(H) 12 - 28 [facility] 1 Sodium 140 134 - 144 mmol/L [facility] Potassium 4.9 3.5 - 5.2 mmol/L [facility] 1 Chloride 103 96 - 106 mmol/L [facility] Carbon Dioxide 20 20 - 29 mmol/L [facility] 1 Calcium 9.5 8.7 - 10.3 mg/dL [facility] Protein Total 7.4 6.0 - 8.5 g/dL [facility] 1 Albumin 4.3 3.9 - 4.9 g/dL [facility] 1 Globulin Total 3.1 1.5 - 4.5 g/dL [facility] Bilirubin Total 0.2 0.0 - 1.2 mg/dL [facility] Alkaline Phosphatase 47 44 - 121 IU/L [facility] 1 Aspartate aminotransferase??(A ST) 18 0 - 40 IU/L [facility] 1 Alanine Aminotransferase (ALT) 16 0 - 32 IU/L [facility] 1 10/17/2024 9:28 AM EST 10/17/2024 Narrative [facility] - 10/18/2024 1:05 AM EST Performed at: ??01 - [facility] [address] ??[id number] Cnp: Kelley Hughes MD, Phone: ??[phone] Michelle Arellano NP LAB BLOOD ORDERABLES Final Result [facility] 1 from Last 3 [place] [phone] [facility] MEDIC[facility] Member Subscriber Plan / Payer (Ef fective 2024-Present) Name:Bozena Osullivan Relation to Subscriber:Self Name:Bozena Osullivan Payer ID:[id number] Group ID:Not on file Type:Not on file Address: [place] [address] [id number] Care Teams Slide Fasteners Inspector Relationship Specialty Start Date End Date Carin Bolden NP [address] [place] [phone] PCP - General 11/07/21
--- OUTSIDE RECORDS SUMMARY | 2024-12-14 12:20 | XMS_ITS | Encounter Summary ---
Author Organization [employer] Address [address] [facility] 7t [place] [address] Care Team Providers Care Grey Washer Name Role Phone aCrin Bolden Primary Care Provider [phone] Reason for Visit * Reason Comments Med Refill Encounter Details Date Type Department Care Team ([facility] st Contact Info) Description 07/06/[address] [facility] [address] [place], [place] [phone] Carin Bolden ANP [address] [place] [address] Social History Tobacco Use Types Packs/Day Years [...] Description 12/16/2024 9:00 AM EDT Medication Management [facility] [address] [place] [phone] 03/09/2025 2:30 PM EDT Office Visit [facility] [address] [place] [address] Carin Bolden ANP [address] [place] [address] documented as of this encounter Visit Diagnoses Not on filedocumented in this encounter Additional Health Concerns Assessment Noted Time PHQ-9 Depression Total Score: 8 02/26/20 24 10:46 AM EDT documented as of this encounter Care Teams Grey Washer Relationship Specialty Start Date End Date Carin Bolden ANP [address] [place] [phone] PCP - General Family Medicine 10/10/21 documented as of this encounter
--- OUTSIDE RECORDS SUMMARY | 2024-12-14 12:21 | XMS_ITS | Patient Health Record ---
Author Organization [facility] Address [address] [facility] [address] [place] [address] Care Team Providers Care Pet Technologist Name Role Phone kamlazSID, DNF Primary Care Provider Unavailab Juliette Rodriguez Unavailable [phone] RANDAL [place] Unavailable Unavailable Migration, Provider Unavailable Unavailable Reason For Referral No Information Medications Medication SIG (Take, Route, Frequency, Duration) Notes Start Date End Date Status Carvedilol 6.25 MG 1 tab(s) orally 2 [...] once a day for 30 day(s) Active Spironolactone 25 MG 1 tab(s) orally 2 times a day for 30 day(s) Active Clopidogrel Bisulfate 75 MG 1 tab(s) orally once a day for 30 day(s) Active Aspirin 81 MG 1 tab(s) chewed once a day for 30 day(s) Active Dicyclomine HCl 10 MG 2 cap(s) orally 4 times a day for 90 days 09/28/2019 Active Glimepiride 4 MG 1 tab(s) orally once a day for 30 day(s) Active Lantus 100 UNIT/ML 0 subcutaneously 70 UNITS Active TRILYTE WITH FLAVOR PACKS - 240 ML ORALLY EVERY 15 MINUTES for 16 DOSE(S) *Please review for potential replacement for e-prescription and drug interaction check* 07/05/2019 Not-Taking Trulicity 0.75 MG/0.5ML as directed subcutaneously once a week Active metFORMIN HCl 1000 MG 1 tab(s) orally 2 times a day for 30 day(s) Active Social History Tobacco Use: Social History Observation Description Date Details (start date - stop date) Never Smoker NA - NA Tobacco Use Question Answer Notes Are you a: never smoker Alcohol Question Answer Notes Did you have a drink containing alcohol in the p ast year? No Points 0 Interpretation Negative Problems No Known Problems Encounters Encounter Location Date Provider Diagnosis [facility] [address] [place] [address] 06/04/2024 Provider Migration Abdominal pain, epigastric R10.13 Assessments Encounter Date Diagnosis (ICD Code) Assessment Notes Treatment Notes Treatment Clinical Notes Section Notes 06/04/2024 Abdominal pain, epigastric (ICD-10 - R10.13) Plan Of Treatment Pending Test Test Name Order Date Level 4: Tissue 09/16/2019 Colonoscopy @ [facility] 07/05/2019 EGD @ [facility] 07/05/2019 Insurance Providers Payer Name Payer Address Payer Phone Subscriber Number Group Number Insured Name Patient Relationship to Insured Coverage Start Date Coverage End Date [employer] [address] [address] [address] [place] [phone] [id number] VANESSA BARKER Self - patient is the insured 9 Medical (General) History Medical History History ICD Code Diarrhea Constipation change in bowel movement Hepatitis C HIGH BLOOD PRESSURE HIGH CHOLESTEROL Bronchitis DIABETES Thyroid Disorder Arthritis Neck pain Back pain Depression depression with anxiety Surgical History Surgery Date(Month/Year) STENT PLACEMENT 03/01/2018 Colonoscopy 2019 EGD 2019 Hospitalization History Reason Date(Month/Year) same above
--- OUTSIDE RECORDS SUMMARY | 2024-12-14 12:21 | XMS_ITS | Encounter Summary ---
Author Organization [employer] Address [address] 7[address] [place] [address] Care Team Providers Care Derrick Worker Well Service Name Role Phone Carin Bolden JOSE CRUZ Primary Care Provider [phone] Encounter Details Date Type Department Care Team (Late st Contact Info) Description 06/19/2023 Abstract [facility] [address] [place], [place] [phone] Loree Chan Social History Tobacco Use Types Packs/Day Years Used Date Smoking Tobacco: Never Passive Smoke Exposure: Never Smokeless Tobacco: Never Alcohol Use Standard Drinks/Week Comments Never 0 (1 standard drink = 0.6 oz pur e alcohol) Depression Answer Date Recorded Patient Health Questionnaire-9 Score 14 03/20/2023 Housing Stability Answer Date Recorded What is your housing situation today? I have rena benites 06/23/[address] you li ve. Do you have problems with any of the following? None of the above 06/23/2023 Food Insecurity Answer Date Recorded Within the past 12 months, y ou worried that your food would run out before you got money to buy more: Never True 06/23/2023 Within the past 12 months,th e food you bought just didn't last and you didn't have enough money to get more: Never True 06/2023 Transportation Answer Date Recorded In the past 12 months, has l ack of transportation kept you from medical appts, meetings, work or from getting things needed for daily living? No 06/23/2023 Utilities Answer Date Recorded In the past 12 months, has t he electric, gas, oil or water company threatened to shut off services in your home? No 06/23/2023 Depression Answer Date Recorded Patient Health Questionnaire-2 Score 5 03/20/2023 Comments Unknown Sex and Gender Information Value [...] Description 12/16/2024 9:00 AM EDT Medication Management [address] [address] 03/09/2025 2:30 PM EDT Office Visit [address] [phone] Carin Bolden ANP [address] [place] [address] documented as of this encounter Procedures Procedure Name Priority Date/Time Associated Diagnosis Comments PAP/HPV Routine 11/25/2021 documented in this encounter Results * Pap Smear (11/25/2021) Pap Negative for intraephithelial lesion or malignancy Negative for intraephithelial lesion or malignancy, Other HPV Undetected us Historical Provider HEALTH MAINTENANCE Edited Result - Final documented in this encounter Visit Diagnoses Not on filedocumented in this encounter Additional Health Concerns Assessment Noted Time PHQ-9 Depression Total Score: 14 023 2:16 PM EDT documented as of this encounter Care Teams Derrick Worker Well Service Relationship Specialty Start Date End Date Carin Bolden ANP [address] [place], [place] [phone] PCP - General Family Medicine 10/10/21 documented as of this encounter
--- OUTSIDE RECORDS SUMMARY | 2024-12-14 12:21 | XMS_ITS | Encounter Summary ---
Author Organization [employer] Address [address] [facility] 7t [place] [address] Care Team Providers Care Health Promotion Coordinator Name Role Phone Carin Bolden Primary Care Provider [phone] Encounter Details Date Type Department Care Team (Late st Contact Info) Description 07/22/2023 Abstract [facility] [address] [place] [address] Carin Bolden ANP [address] [place] [address] Social History Tobacco Use Types Packs/Day Years [...] got money to buy more: Never True 06/29/2023 Within the past 12 months,th e food you bought just didn't last and you didn't have enough money to get more: Never True Transportation Answer Date Recorded In the past [...] Description 12/16/2024 9:00 AM EDT Medication Management [address] [address] 03/09/2025 2:30 PM EDT Office Visit [facility] [address] [place] [phone] Carin Bolden ANP [address] [place] [phone] documented as of this encounter Visit Diagnoses Not on filedocumented in this encounter Additional Health Concerns Assessment Noted Time PHQ-9 Depression Total Score: 14 023 2:16 PM EDT documented as of this encounter Care Teams Health Promotion Coordinator Relationship Specialty Start Date End Date Carin Bolden ANP [address] [place] [phone] PCP - General Family Medicine 10/10/21 documented as of this encounter
--- OUTSIDE RECORDS SUMMARY | 2024-12-14 12:21 | XMS_ITS | Encounter Summary ---
Author Organization [facility] Address [address] [facility] 7t [place] [address] Care Team Providers Care Pizza Delivery Driver Name Role Phone Carin Bolden Primary Care Provider [phone] Encounter Details Date Type Department Care Team (Late st Contact Info) Description 08/11/2022 Abstract [facility] [address] [place] [phone] Dental, Provider, DDS Social History Tobacco Use Types Packs/Day Years Used Date Smoking Tobacco: Never Assessed Comments Unknown Sex and Gender Information Value Date Recorded Sex Assigned at Female 07/14/2022 10:18 AM EDT Legal Sex Female 10:18 AM EDT Gender Identity Female 07/14/2022 10:18 AM EDT Sexual Orientation Straight 07/14/2022 10 :18 AM EDT COVID-19 Exposure Response Date Recorded In the last 10 days, have yo u been in contact with someone who was confirmed or suspected to have Coronavirus/COVID-19? No / Unsure 08/14/2022 12:57 PM EST documented as of this encounter Plan of Treatment Upcoming Encounters Date Type Department Care Team (Late st Contact Info) Description 12/16/2024 9:00 AM EDT Medication Management [facility] [address] [place] [phone] 03/09/2025 2:30 PM EDT Office Visit [facility] [address] [place] [phone] Carin Bolden ANP [address] [place], [place] [phone] documented as of this encounter Procedures Procedure Name Priority Date/Time Associated Diagnosis Comments 4 B(V) COMPOSITE FILLING Routine 08/11/2022 12:00 AM EST 24 F(V) COMPOSITE FILLING Routine 08/11/2022 12:00 AM EST 27 F(V) COMPOSITE FILLING Routine 08/11/2022 12:00 AM EST 28 B(V) COMPOSITE FILLING Routine 08/11/2022 12:00 AM EST 25 FF(V) COMPOSITE FILLING Routine 08/11/2022 12:00 AM EST 9 DL COMPOSITE FILLING Routine 08/11/2022 12:00 AM EST 7 ML COMPOSITE FILLING Routine 08/11/2022 12:00 AM EST 6 MDFL COMPOSITE FILLING Routine 08/11/2022 12:00 AM EST 4 O AMALGAM FILLING Routine 08/11/2022 12:00 AM EST 4 D AMALGAM FILLING Routine 08/11/2022 12:00 AM EST 4 M AMALGAM FILLING Routine 08/11/2022 12:00 AM EST 13 MO AMALGAM FILLING Routine 08/11/2022 12:00 AM EST 15 O AMALGAM FILLING Routine 08/11/2022 12:00 AM EST 17 LO AMALGAM FILLING Routine 08/11/2022 12:00 AM EST 32 O AMALGAM FILLING Routine 08/11/2022 12:00 AM EST 2 O AMALGAM FILLING Routine 08/11/2022 12:00 AM EST documented in this encounter Visit Diagnoses Not on filedocumented in this encounter Care Teams Pizza Delivery Driver Relationship Specialty Start Date End Date Carin Bolden ANP [address] [place] [phone] PCP - General Family Medicine 10/10/21 documented as of this encounter
--- OUTSIDE RECORDS SUMMARY | 2024-12-14 12:21 | XMS_ITS | Encounter Summary ---
Author Organization [email or web address] Address [address] [facility] 7t [place] [address] Care Team Providers Care People Greeter Name Role Phone Carin Bolden Primary Care Provider [phone] Reason for Visit * Reason Comments Med Refill Encounter Details Date Type Department Care Team (Late st Contact Info) Description 08/28/2023 Refill [facility] MED[facility]INE 230 [place], [place] [phone] Carin Bolden ANP 230 [place], [place] [phone] Subacute cough Social History Tobacco Use Types Packs/Day Years [...] Description 12/16/2024 9:00 AM EDT Medication Management [address] [address] 03/09/2025 2:30 PM EDT Office Visit [address] [address] Carin Bolden ANP 230 [place] [address] documented as of this encounter Visit Diagnoses Diagnosis Subacute cough documented in this encounter Additional Health Concerns Assessment Noted Time PHQ-9 Depression Total Score: 14 023 2:16 PM EDT documented as of this encounter Care Teams People Greeter Relationship Specialty Start Date End Date Carin Bolden ANP [address] [place] [address] PCP - General Family Medicine 10/10/21 documented as of this encounter
--- OUTSIDE RECORDS SUMMARY | 2024-12-14 12:21 | XMS_ITS | Encounter Summary ---
Author Organization [employer] Address [address] [facility] 7t [place] [address] Care Team Providers Care Shuttle Inspector Name Role Phone Carin Bolden Primary Care Provider [phone] Reason for Visit * Reason Comments Med Refill Encounter Details Date Type Department Care Team (Late st Contact Info) Description 12/09/2024 Refill [facility] MED[facility]INE 230 [place], [place] [phone] Carin Bolden ANP 230 [place] [address] Type 2 diabetes mellitus with hyperglycemia, with long-term current use of insulin ([facility]); Hypothyroidism, unspecified type Social History Tobacco Use Types Packs/Day Years [...] the past 12 months, has t he [employer], gas, oil or water [employer] threatened to shut off services in your [...] Description 12/16/2024 9:00 AM EDT Medication Management [facility] [address] [place] [address] 03/09/2025 2:30 PM EDT Office Visit [facility] [address] [place] [address] Carin Bolden ANP [address] [place] [address] documented as of this encounter Visit Diagnoses Diagnosis Type 2 diabetes mellitus with hyperglycemia, with long-term current use of insulin ([facility]) Hypothyroidism, unspecified type documented in this encounter Additional Health Concerns Assessment Noted Time PHQ-9 Depression Total Score: 16 025 10:32 AM EDT documented as of this encounter Care Teams Shuttle Inspector Relationship Specialty Start Date End Date Carin Bolden ANP [address] [place] [address] PCP - General Family Medicine 1/27/22 documented as of this encounter
== END 2024-12-14 10:29 | disposition home or self-care (01) ==
LOC: HO.US 10:28
PROVIDERS: PCP Nurse Practitioner Primary Care; Visit Provider Obstetrics & Gynecology
DX: D25.9 Leiomyoma of uterus, unspecified (principal)
CPT/HCPCS: 76830; 76856

== ENCOUNTER → 2024-12-14 10:30 | Outpatient (BNV) | payer OTHER, SELFPAY | PROVIDERS: PCP Nurse Practitioner Primary Care; Visit Provider Radiology Diagnostic Radiology | DX: D25.9 Leiomyoma of uterus, unspecified (principal) | CPT/HCPCS: 76830; 76856 ==

== ENCOUNTER 2024-12-16 10:10 | Outpatient (REF) | payer OTHER, SELFPAY ==
--- OUTSIDE RECORDS SUMMARY | 2024-12-16 11:33 | XMS_ITS | Encounter Summary ---
Author Organization [employer] Address [address] [facility] [address] 7t [place] [address] Care Team Providers Care Poke In Name Role Phone Kimi Carin BILLINGSLEY Primary Care Provider [phone] Reason for Visit * Reason Comments Med Refill Encounter Details Date Type Department Care Team ([facility] st Contact Info) Description 08/16/2024 Refill [facility] [address] [place], [place] [phone] Lori Bee MD 230 [place] [address] Carpal tunnel syndrome, unspecified laterality Social History [...] Care Team (Late st Contact Info) Description 01/20/2025 9:00 AM EDT Telemedicine [facility] MEDICINE [address] [place] [address] 03/09/2025 2:30 PM EDT Office Visit [facility] [address] [place] [address] Carin Bolden ANP 230 [place] [address] documented as of this encounter Visit Diagnoses Diagnosis Carpal tunnel syndrome, unspecified laterality documented in this encounter Additional Health Concerns Assessment Noted Time PHQ-9 Depression Total Score: 8 02/26/20 24 10:46 AM EDT documented as of this encounter Care Teams Poke In Relationship Specialty Start Date End Date Carin Bolden ANP [address] [place] [address] PCP - General Family Medicine 10/10/21 documented as of this encounter
--- OUTSIDE RECORDS SUMMARY | 2024-12-16 11:33 | XMS_ITS | Encounter Summary ---
Author Organization [email or web address] Address 75 [facility] 7t [place] [address] Care Team Providers Care Paraprofessional Education Assistant Name Role Phone Carin Bolden Primary Care Provider [phone] Reason for Visit * Reason Comments Med Refill Encounter Details Date Type Department Care Team ([facility] st Contact Info) Description 07/06/2024 Refill [facility] 230 [place], [place] [phone] Carin Bolden ANP 230 [place] [address] Social History Tobacco Use Types Packs/Day Years [...] Info) Description 01/20/2025 9:00 AM EDT Telemedicine [facility] [address] [place] [address] 03/09/2025 2:30 PM EDT Office Visit [facility] [address] [place] [address] Carin Bolden ANP 230 [place] [address] documented as of this encounter Visit Diagnoses Not on filedocumented in this encounter Additional Health Concerns Assessment Noted Time PHQ-9 Depression Total Score: 8 02/26/20 24 10:46 AM EDT documented as of this encounter Care Teams Paraprofessional Education Assistant Relationship Specialty Start Date End Date Carin Bolden ANP [address] [place] [address] PCP - General Family Medicine 10/10/21 documented as of this encounter
--- OUTSIDE RECORDS SUMMARY | 2024-12-16 11:33 | XMS_ITS | Clinical Summary ---
Author Organization [facility] Address [address] [place] [address] Care Team Providers Care Adjunct Spanish Instructor Name Role Phone Carin Bolden NP Primary Care Provider [phone] Allergies No known active allergies Medications aspirin [...] to the mid LAD in 2017 at [facility]. The patient had been reporting episodes of [...] Type Department Care Team Description 10/18/2024 Telephone [facility] [address] [facility] [address] [place] [address] [facility] Mon[facility] Surgical History Surgery Date Site/Laterality Comments COLONOSCOPY 2006? PROCEDURE: NM COLONOSCOPY FLX DX W/COLLJ SPEC WHEN PFRMD ESOPHAGOGASTRODUODENOSCOPY 05/13/2010 PROCEDURE: NM EGD TRANSORAL BIOPSY SINGLE/MULTIPLE; COMMENT: Normal esophagus [...] Description 02/15/2025 2:00 PM EDT Office Visit [facility] [address] [place] [phone] Rob Melendez MD [address] [place] [address] [place] [address] Health Maintenance Due Date Last Done Comments [...] PM EST Performed at: ??01 - [facility] [address] ??[id number] Enterprise Applications Manager: Kelley Hughes MD, Phone: ??[phone] Michelle Arellano NP LAB BLOOD ORDERABLES Final [...] AM EST Performed at: ??01 - [facility] [address] ??[id number] Enterprise Applications Manager: Kelley Hughes MD, Phone: ??[phone] Michelle Arellano NP LAB BLOOD ORDERABLES Final Result [facility] 1 from Last 3 [place] [id number] [facility] MEDIC[facility] Member Subscriber Plan / Payer (Ef fective 2024-Present) Name:Bozena Osullivan Relation to Subscriber:Self Name:Bozena Osullivan Payer ID:[id number] Group ID:Not on file Type:Not on file Address: [place] [address] [address] Care Teams Adjunct Spanish Instructor Relationship Specialty Start Date End Date Carin Bolden NP [address] [place] [phone] PCP - General 11/07/21
--- OUTSIDE RECORDS SUMMARY | 2024-12-16 11:33 | XMS_ITS ---
Author Organization [facility] Address [address] [place] [address] Care Team Providers Care Crew Dispatcher Name Role Phone [email or web address], DNF Primary Care Provider Unavailab Juliette Rodriguez Unavailable [phone] R[place]AL [place] Unavailable Unavailable Migration, Provider Unavailable Unavailable REASON FOR VISIT [facility] To [facility] Conversion Encounter Medications Medication SIG (Take, Route, [...] Date Provider Diagnosis [facility] [address] [place] [address] 06/04/2024 Provider Migration Abdominal pain, epigastric R10.13 [...] * VANESSA BARKER NDOB:1955 (69 yo F)Acc No.[id number]:06/04/2024 Patient:?VANESSA BARKER N Provider:? :1955???Age:68 Y???Sex:Female D ate:06/04/2024 Address:[address] [place] [address] [facility] Pcp:DEANA Manriquez Subjective: * Chief Complaints: * ???1. [facility] To [facility] Con version Encounter. * Medical History:? * [...] Electronic signature of Prov ider Migration on 12/16/2024 at 11:33 AM EDT Sign off status: Pending * Provider:? Date:?06/04/2024 Generated for Remy gannon/Alsye/Maximilianoitting on:?12/16/2024 11:33 AM EDT
--- OUTSIDE RECORDS SUMMARY | 2024-12-16 11:33 | XMS_ITS | Encounter Summary ---
Author Organization [email or web address] Address [address] [facility] 7t [place] [address] Care Team Providers Care Boat Cleaning Supervisor Name Role Phone Carin Bolden Primary Care Provider [phone] Reason for Visit * Reason Comments Med Refill Encounter Details Date Type Department Care Team (Late st Contact Info) Description 02/19/2023 Refill [facility] MEDICINE [address] [place] [address] [phone] Valentina Escobedo MD [address] [place] [address] [phone] Social History Tobacco Use Types Packs/Day Years [...] Info) Description 01/20/2025 9:00 AM EDT Telemedicine [facility] MEDICINE [address] [place] [phone] 03/09/2025 2:30 PM EDT Office Visit [facility]INE [address] [place] [phone] Carin Bolden ANP 230 [place], [place] [phone] documented as of this encounter Visit Diagnoses Not on filedocumented in this encounter Care Teams Boat Cleaning Supervisor Relationship Specialty Start Date End Date Carin Bolden ANP 230 [place] [address] PCP - General Family Medicine 10/10/21 documented as of this encounter
--- OUTSIDE RECORDS SUMMARY | 2024-12-16 11:34 | XMS_ITS | Encounter Summary ---
Author Organization [employer] Address [address] [facility] 7t [place] [address] Care Team Providers Care Hand Ii Blocker Name Role Phone Carin Bolden Primary Care Provider [phone] Encounter Details Date Type Department Care Team (Late st Contact Info) Description 07/22/2023 Abstract [facility] 230 [place] [address] Carin Bolden ANP 230 [place] [address] Social History Tobacco Use Types Packs/Day Years [...] Info) Description 01/20/2025 9:00 AM EDT Telemedicine [facility] MED[facility] [address] [place] [address] 03/09/2025 2:30 PM EDT Office Visit [facility] [address] [place] [address] Carin Bolden ANP [address] [place] [address] documented as of this encounter Visit Diagnoses Not on filedocumented in this encounter Additional Health Concerns Assessment Noted Time PHQ-9 Depression Total Score: 14 023 2:16 PM EDT documented as of this encounter Care Teams Hand Ii Blocker Relationship Specialty Start Date End Date Carin Bolden ANP [address] [place] [address] PCP - General Family Medicine 10/10/21 documented as of this encounter
--- OUTSIDE RECORDS SUMMARY | 2024-12-16 11:34 | XMS_ITS | Encounter Summary ---
Author Organization [employer] Address [address] [facility] [address] 7t [place] [address] Care Team Providers Care Senior Center Director Name Role Phone Carin Bolden JOSE CRUZ Primary Care Provider [phone] Encounter Details Date Type Department Care Team (Late st Contact Info) Description 06/19/2023 Abstract [facility] 230 [place], [place] [phone] Loree Chan Social History Tobacco Use Types [...] Info) Description 01/20/2025 9:00 AM EDT Telemedicine [facility] [address] [place] [address] 03/09/2025 2:30 PM EDT Office Visit [address] [address] Carin Bolden ANP 230 [place] [address] documented as of this encounter Procedures Procedure [...] documented as of this encounter Care Teams Senior Center Director Relationship Specialty Start Date End Date Carin Bolden ANP 230 [place] [address] PCP - General Family Medicine 10/10/21 documented as of this encounter
--- OUTSIDE RECORDS SUMMARY | 2024-12-16 11:34 | XMS_ITS | Patient Health Record ---
Author Organization [facility] Address [address] [facility] [address] [place] [address] Care Team Providers Care Solar Installer Technician Name Role Phone [email or web address], DNF Primary Care Provider Unavailab Juliette Rodriguez Unavailable [phone] RANDAL [place] Unavailable Unavailable Migration, Provider Unavailable [...] Location Date Provider Diagnosis [facility] [address] [address] [place] [address] 06/04/2024 Provider Migration Abdominal pain, epigastric R10.13 [...] Insured Coverage Start Date Coverage End Date [employer] [address] [address] [place] [id number] VANESSA BARKER Self - patient is the [...]
--- OUTSIDE RECORDS SUMMARY | 2024-12-16 11:34 | XMS_ITS | Encounter Summary ---
Author Organization [employer] [facility] Address [address] [facility] 7t [place] [address] Care Team Providers Care Licensed Massage Therapist Name Role Phone Carin Bolden Primary Care Provider [phone] Encounter Details Date Type Department Care Team (Latest Contact Info) Description 02/17/2022 Abstract [facility] CONVERSIONS Dental, Provider, DDS Social History [...] Info) Description 01/20/2025 9:00 AM EDT Telemedicine [facility] MEDICINE [address] [place] [address] 03/09/2025 2:30 PM EDT Office Visit [facility]INE 230 [place] [address] Carin Bolden ANP 230 [place] [address] documented as of this encounter Visit Diagnoses Not on filedocumented in this encounter Care Teams Licensed Massage Therapist Relationship Specialty Start Date End Date Carin Bolden ANP 230 [place] [address] PCP - General Family Medicine 10/10/21 documented as of this encounter
--- OUTSIDE RECORDS SUMMARY | 2024-12-16 11:34 | XMS_ITS | Encounter Summary ---
Author Organization [employer] Address [address] [facility] 7t [place] [address] Care Team Providers Care Jetting Machine Operator Name Role Phone Carin Bolden Primary Care Provider [phone] Reason for Visit * Reason Comments Med Refill Encounter Details Date Type Department Care Team (Late st Contact Info) Description 08/28/2023 Refill [facility] MEDICINE 230 [place], [place] [phone] Carin Bolden ANP 230 [place], [place] [phone] Subacute cough Social History Tobacco Use Types [...] Info) Description 01/20/2025 9:00 AM EDT Telemedicine [facility] MEDICINE [address] [place] [address] 03/09/2025 2:30 PM EDT Office Visit [facility]INE [address] [place] [address] Carin Bolden ANP 230 [place] [address] documented as of this encounter Visit Diagnoses Diagnosis Subacute cough documented in this encounter Additional Health Concerns Assessment Noted Time PHQ-9 Depression Total Score: 14 023 2:16 PM EDT documented as of this encounter Care Teams Jetting Machine Operator Relationship Specialty Start Date End Date Carin Bolden ANP [address] [place] [address] PCP - General Family Medicine 10/10/21 documented as of this encounter
--- OUTSIDE RECORDS SUMMARY | 2024-12-16 11:34 | XMS_ITS | Clinical Summary ---
Author Organization [employer] Address [address] [facility] 7t [place] [address] Care Team Providers Care Career Development Manager Name Role Phone Justin Lopez JOSE CRUZ Primary Care Provider [phone] Allergies No known active allergies Medications * [...] miscIndications: Type 2 diabetes mellitus with hyperlipidemia ([facility]/HCC) ([facility]) TEST BLOOD SUGAR THREE TIMES DAILY 100 each Active NovoLOG FLEXPEN 100 UNIT/ML penIndications:T ype 2 diabetes mellitus with hyperlipidemia ([facility]/HCC) ([facility]) INJECT 20 UNITS SUBCUTANEOUSLY BEFORE MEALS if BG 200+ PER prescriber's instructions. INJECT 30 UNITS if BG 300+ DIRECTED 60 mL Active Alcohol Swabs (Alcohol Prep) 70 % padsIndications: Type 2 diabetes mellitus with hyperglycemia, with long-term current use of insulin ([facility]) USE ONCE DAILY 100 each Active FREESTYLE LITE test stripIndications :Type 2 diabetes mellitus with diabetic polyneuropathy, with long-term current use of insulin ([facility]) TEST BLOOD SUGAR THREE TIMES DAILY DIRECTED 100 strip Active insulin pen needle (Easy Touch Pen Excello) 31G x 6 mm miscIndications: Type 2 diabetes mellitus with diabetic polyneuropathy, with long-term current use of insulin ([facility]) USE THREE DAILY 100 each Active Multiple [...] 1 tablet by mouth at bedtime. Purchases [facility] Active Blood Glucose Monitoring Suppl (Reframe Ite) w/Device kit Use to test blood sugar TID dx dm 1 kit Active cetirizine (ZyrTEC) 10 MG tabletIndication s:Rhinitis, unspecified type Take once daily as needed 30 tablet Active Aspirin Adult Low Strength 81 MG EC tabletIndication s:Type 2 diabetes mellitus with hyperglycemia, with long-term current use of insulin ([facility]) TAKE ONE TABLET EVERY MORNING 90 tablet [...] hyperglycemia, with long-term current use of insulin ([facility]) Take 1 tablet (81 mg) by mouth [...] polypectomy versus endometrial biopsy On: TBD By: TELLER MANAGER Anesthesia: General After careful review of patient's most recent laboratory tests: BMP 09/2023 EKG: IVCD, PSV complexes, LAFB And today's Physical examination wnl Plan: Pt to be referred for cadiac clearance with Dr thomason prior to procedure under general anesthesia, pt [...] 9:29 AM EST): Under the care of Pin Setter Rob Thomason. Last seen 04/2023. Last ECHO with reduced EF. Scheduled for procedure under general anesthesia. EKG today shows : Premature SV complexes, IVCD , LAFB. I have no other EKGs to compare to Will refer to Dr Thomason for Cardiac Clearance and optimization prior to procedure Coronary artery disease 08/17/2023 08/17/20 23 Overview (02/10/2024): Pin Setter Dr. Thomason Baseline ECG: SR, possible prior septal infarct [...] use of insulin 06/03/2012 08/17/2023 Overview (02/10/2024): [facility] endocrinology Metformin XR 500mg 2 tabs AM/PM Lantus 30 units daily NovoLog 30 units before meals (we have this as 20 units unless BG 300+) Jardiance 25mg mounjaro 7.5mg weekly (plan to increase to 10mg Spring 2023) On statin, ASA (pt has known CAD), ARB (entresto) Hypertension 06/03/2012 Assessment & Plan (11/19/2023 9:30 AM EST): Pt on Carvedilol once daily ( as per Pin Setter) Once cleared by Cardiology the instruction is [...] organization. Date Type Department Care Team Description 12/16/2024 Travel 12/09/[address] [address] Justin Lopez ANP Type 2 diabetes mellitus with hyperglycemia, with long-term current use of insulin ([facility]); Hypothyroidism, unspecified type 12/05/2024 11:00 AM EDT Office Visit [address] [address] Justin Lopez ANP Neuropathy of left lower extremity (Primary Dx); Rhinitis, unspecified type; Demyelinating neuropathy; Type 2 diabetes mellitus with hyperlipidemia (CMS/HCC) ([facility]); Depression, recurrent (CMS/HCC) 12/05/2024 Travel 11/30/2024 Orders Only GENERIC EXTERNAL DATA DEPARTMENT Provider, Generic External Data 11/30/[address] [address] Justin Lopez ANP 09/30/2024 Orders Only GENERIC EXTERNAL DATA DEPARTMENT Provider, Generic External Data 09/21/2024 Orders Only [address] [address] Justin Lopez ANP from Last 3 Months [...] Info) Description 01/20/2025 9:00 AM EDT Telemedicine [facility] [address] [place] [phone] 03/09/2025 2:30 PM EDT Office Visit [facility] [address] [place] [phone] Justin Lopez ANP [address] [place] [address] Health Maintenance Due Date Last Done Comments [...] Procedure Name Priority Date/Time Associated Diagnosis Comments US PELVIS TRANSVAGINAL Routine 12/14/2024 10:55 AM EDT TSH Routine 11/30/2024 8:48 AM EDT LIPID [...] Recently Relevant to Health Maintenance Results * US Pelvis Transvaginal (12/14/2024 10:55 AM EDT) Anatomical Region Laterality Modality Pelvis Ultrasound 12/14/2024 10:5 5 AM EDT Narrative 12/14/2024 2:11 PM EDT ? [facility] ?[address] ?[place] [address] ? Ultrasound Report ? Signed ? Patient: Bozena Gupta N ?MR#: [id number] ?? [id number] ? : 1955 ?Acct:[id number] ? Age/Sex: 69 / F ?ADM Date: 12/14/24 ? Loc: HO.US ? Attending Dr: Arturo De León MD ? Ordering Physician: Arturo De León MD ?? Date of Service: 12/14/24 ?? Procedure(s): US pelvic and transvaginal ?? Accession Number(s): [id number] ? cc: JUSTIN LOPEZ NP; Arturo De León MD ? EXAMINATION: ??US PELVIS TRANSABDOMINAL AND TRANSVAGINAL ? HISTORY: D25.9 - Leiomyoma of uterus, unspecified ? COMPARISON: Comparison is made with the prior examination dated ?? 01/28/2024. ? TECHNIQUE: ? Transabdominal and endovaginal real-time 2D aaron-scale ultrasound was ?? performed. ? FINDINGS: ? Uterus: ??The uterus is normal in size, measuring 8.2 x 3.5 x 5.2 cm. ? Myometrium has a normal echotexture. ??Again seen is an anterior uterine ?? fibroid of the lower uterine segment measuring 10 x 12 x 16 mm ?? (previously 11 x 12 x 18 mm). ? Endometrium: ??The endometrial stripe measures 3 mm in thickness. ? Right ovary: ??The right ovary measures 2.4 x 1.8 x 2.2 cm. ??The right ?? ovary is normal in size and echotexture. ? Left ovary: ?? The left ovary measures 1.8 x 1.7 x 1.7 cm. ??The left ?? ovary is normal in size and echotexture. ? Pelvic fluid: none. ? US/US pelvic and transvaginal ?? IMPRESSION: ?? Stable anterior uterine fibroid. Otherwise unremarkable pelvic ?? ultrasound. ? Electronically signed by: ??Antoine Garay MD ??12/14/2024 02:08 PM EDT ?? RP ? Dictated By: ?Antoine Garay MD ? Signed By: ?<Electronically signed by Antoine Garay MD in OV> ?12/14/248 ? DD/ 1055 ? TD/TT: 12/14/24 1124 ? Waste Disposal Leakage Tester: ? Procedure Note Donotuseinterpreter, Image - 12/14/2024 [place] [address] Ultrasound Report Signed Patient: Bozena Gupta NMR#: [id number] : 6Acct:[id number] Age/Sex: 69 / FADM Date: 12/14/24 Loc: HO.US Attending Dr: Arturo De León MD Ordering Physician: Arturo De León MD Date of Service: 12/14/24 Procedure(s): US pelvic and transvaginal Accession Number(s): [id number] cc: JUSTIN LOPEZ NP; Arturo De León MD EXAMINATION: US PELVIS TRANSABDOMINAL AND TRANSVAGINAL HISTORY: D25.9 - Leiomyoma of uterus, unspecified COMPARISON: Comparison is made with the prior examination dated 01/28/2024. TECHNIQUE: Transabdominal and endovaginal real-time 2D aaron-scale ultrasound was performed. FINDINGS: Uterus: The uterus is normal in size, measuring 8.2 x 3.5 x 5.2 cm. Myometrium has a normal echotexture. Again seen is an anterior uterine fibroid of the lower uterine segment measuring 10 x 12 x 16 mm (previously 11 x 12 x 18 mm). Endometrium: The endometrial stripe measures 3 mm in thickness. Right ovary: The right ovary measures 2.4 x 1.8 x 2.2 cm. The right ovary is normal in size and echotexture. Left ovary: The left ovary measures 1.8 x 1.7 x 1.7 cm. The left ovary is normal in size and echotexture. Pelvic fluid: none. US/US pelvic and transvaginal IMPRESSION: Stable anterior uterine fibroid. Otherwise unremarkable pelvic ultrasound. Electronically signed by: Antoine Garay MD 12/14/2024 02:08 PM EDT RP Dictated By: Antoine Garay MD Signed By: <Electronically signed by Antoine Garay MD in OV> 12/14/24 1408 DD/ 1055 TD/TT: 12/14/24 1124 Waste Disposal Leakage Tester: [facility] External Provider IMG US PROCEDURES Final Result * Creatinine, Random Urine (11/30/2024 8:48 AM EDT) Creatinine, Urine 73.79 mg/dL [facility] 11/30/2024 8:48 AM EDT 11/30/2024 2:07 PM EDT Generic External Data Provider LAB URINE ORDERAB LES Final Result Performing Organization Address [facility] de Phone Number [facility] [address] [place], [place] [phone] * (ABNORMAL) Sed Rate by Modified Shea (11/30/2024 8:48 AM EDT) Erythrocyte Sedimentation Rate 28(H) 0 - 20 MM/HR [facility] Comment:Patients with polycy themia and many hemoglobin abnormalitiesmay have depressed sed rates whereas patients with anemiamay have elevated sed rates. Blood Venous blood specimen / Unknown 11/30/2024 8:48 AM EDT 11/30/2024 2:17 PM EDT [facility] LAB BLOOD ORDERABLES Final Resul t Performing Organization Address [facility] Co de Phone Number [facility] [address] [place] [phone] * C-reactive Protein (11/30/2024 8:48 AM EDT) C Reactive Protein 0.10 < or = 0.50 mg/dL [facility] Blood Venous blood specimen / Unknown 11/30/2024 8:48 AM EDT 11/30/2024 2:17 PM EDT [facility] LAB BLOOD ORDERABLES Final Resul t [facility] [address] [place] [phone] * TSH (11/30/2024 8:48 AM EDT) Pathologist [facility] Thyroid Stimulating Hormone 2.14 0.32 - 4.0 uIU/mL [facility] Comment:TSH 3rd Generation ( [facility]) 11/30/2024 8:48 AM EDT 11/30/2024 2:17 PM EDT [facility] External [facility] Provider LAB BLOOD ORDERAB LES Final Result Performing Organization Address City/[facility]/ZIP Co de Phone Number [facility] [address] [place] [phone] * (ABNORMAL) Hemoglobin A1c (11/30/2024 8:48 AM EDT) Hemoglobin A1c 7.4(H) <6.0 % [facility] Comment:Hemoglobin A1C Refer ence Range Adults: 4.8 - 6.0 % Non diabetic: < 6.0 % Goal: < 7.0 %Additional Action Suggested: > 8.0 %Note: Hemoglobin A1c results are invalid for patients with abnormal amounts of HbF. Blood transfusions may impact the HbA1c concentration in the patient sample. Estimated Average Glucose 166 mg/dL [facility] Comment:eAG = Estimated ave rage glucose which is %A1C expressed asaverage glucose, using the formula of the A4F-QgtixscJconbwg Glucose study (ADAG), Diabetes Care, Vol.31,#8,2007 11/30/2024 8:48 AM EDT 11/30/2024 2:17 PM EDT Generic External Data Provider LAB BLOOD ORDERAB LES Final Result Performing Organization Address [facility] Co de Phone Number [facility] [address] [place] [phone] * (ABNORMAL) Lipid Panel, Standard (11/30/2024 8:48 AM EDT) Triglycerides 146 <150 mg/dL [facility] Comment:Desirable Triglyceri de: less than 150 mg/dLBorderline High Triglyceride 150-199 mg/dLHigh Triglyceride: 200-499 mg/dLVery High Triglyceride: greater than or equal to 5OO mg/dL Cholesterol 206(H) <200 mg/dL [facility] Comment:Desirable Cholestero l: less than 200 mg/dLBorderline High Cholesterol: 200-239 mg/dLHigh Cholesterol: greater than 239 mg/dL LDL Cholesterol Calculated 125(H) <100 mg/dL [facility] Comment:Desirable LDL: less than 100 mg/dLNear Optimal/Above Optimal LDL: 110- 129 mg/dLBorderline High LDL: 130-159 mg/dLHigh LDL: 160-189 mg/dLVery High LDL: greater than or equal to 190 mg/dL HDL Cholesterol 52 >40 mg/dL [facility] Comment:Desirable HDL: great er than 40 mg/dL Note: This HDL assay may give artificially low results in patients with liver disease. 11/30/2024 8:48 AM EDT 11/30/2024 2:17 PM EDT Generic External Data Provider LAB BLOOD ORDERAB LES Final Result Performing Organization Address [facility] Co de Phone Number [facility] [address] [place] [address] [phone] * (ABNORMAL) Glucose, Whole Blood (09/30/2024 1:32 PM EST) Glucose, Whole Blood 162(H) 60 - 115 mg/dL [facility] Comment:METER #: [id number] 5Testing performed in the Endocrinology Department [address], [address], [place]. 09/30/2024 1:32 PM EST 09/30/2024 1:40 PM EST us Generic External Data Provider LAB BLOOD ORDERAB LES Final Result [facility] [address] [facility] [place] [address] [phone] * BI Mammogram Screening Tomosynthesis Bilateral (09/21/2024 1:15 PM EST) Anatomical Region Laterality Modality Breast Bilateral Mammography 09/21/2024 1:15 PM EST Narrative 09/28/2024 8:33 AM EST ? [facility] [address] [facility] ?[place] [address] ? Mammography Report ? Signed ? Patient: Osullivan Michele,Bozena N ?MR#: [id number] ?? [id number] ? : 1955 ?Acct:[id number] ? Age/Sex: 68 / F ?ADM Date: // ? Loc: HO.MAMMO ? Attending Dr: Justin Lopez HOSIERY MATER ? Ordering Physician: JUSTIN LOPEZ NP ?Results: 2Benign Fin ?? dings ? Date of Service: 09/21/25 ?Follow Up: 1 Year From Orig ?? inal Mammogram ? Procedure(s): MM tomosynthesis screening BI ?? Accession Number(s): [id number] ? cc: JOHN,JUSTIN NARANJO ? EXAMINATION: ?? MM SCREENING DIGITAL BREAST [...] ??Izabel Suarez DO ??09/28/2024 08:30 AM EST ? Dictated By: ?Izabel Suarez DO ? Signed By: ?<Electronically signed by Izabel Suarez, DO in OV> ? 09/28/24 0830 ? DD/ 1315 ? TD/TT: 09/21/24 1329 ? Waste Disposal Leakage Tester: ? Procedure Note Darrian Kim - 09/28/2024 [place] [facility] [address] [place], [place] [address] Mammography Report Signed Patient: Yamileth Guptaz NMR#: [id number] : 6Acct:[id number] Age/Sex: 68 / FADM Date: 09/21/24 Loc: HO.MAMMO Attending Dr: Justin Lopez NP Ordering Physician: JUSTIN LOPEZ NPResults: 2Benign Wilian arce Date of Service: 09/21/24Follow Up: 1 Year From [facility] ina Mammogram Procedure(s): MM tomosynthesis screening BI Accession Number(s): [id number] cc: JUSTIN LOPEZ NP EXAMINATION: MM SCREENING [...] by: Izabel Suarez DO 09/28/2024 08:30 AM [facility] Dictated By: Izabel Suarez DO Signed By: <Electronically signed by Izabel Suarez DO in OV> 09/28/24 0830 DD/ 1315 TD/TT: 09/21/24 1329 Waste Disposal Leakage Tester: Justin Lopez ANP IMG BI PROCEDURES Final Result * Pap Smear (11/25/2021) Pap Negative for intraephithelial lesion or malignancy Negative for intraephithelial lesion or malignancy, Other HPV Undetected Historical Provider HEALTH MAINTENANCE Edited Result - Final from Last 3 Months or Most Recently Relevant to Health Maintenance Insurance * Guarantor: Bozena Gupta Account Type Relation to Patient Date of Phone Billing Address Personal/Family Self [address] Care Teams Career Development Manager Relationship Specialty Start Date End Date Justin Lopez ANP [address] [place] [address] [place] [address] PCP - General Family Medicine 10/10/21
--- OUTSIDE RECORDS SUMMARY | 2024-12-16 11:34 | XMS_ITS | Encounter Summary ---
Author Organization [employer] Address [address] [facility] [facility] [address] 7[address] [place] [address] Care Team Providers Care Home Appliance Washing Machine Mechanic Name Role Phone Carin Bolden JOSE CRUZ Primary Care Provider [phone] Encounter Details Date Type Department Care Team (Latest Contact Info) Description 12/16/2024 Travel Social History Tobacco Use Types Packs/Day Years [...] Info) Description 01/20/2025 9:00 AM EDT Telemedicine [address] [address] 03/09/2025 2:30 PM EDT Office Visit [address] [address] Carin Bolden ANP [address] [place] [address] documented as of this encounter Visit Diagnoses Not on filedocumented in this encounter Additional Health Concerns Assessment Noted Time PHQ-9 Depression Total Score: 16 025 10:32 AM EDT documented as of this encounter Care Teams Home Appliance Washing Machine Mechanic Relationship Specialty Start Date End Date Carin Bolden ANP [address] [place] [phone] PCP - General Family Medicine 10/10/21 documented as of this encounter
--- OUTSIDE RECORDS SUMMARY | 2024-12-16 11:34 | XMS_ITS | Encounter Summary ---
Author Organization [employer] [facility] Address [address] [facility] 7t [place] [address] Care Team Providers Care Field Service Specialist Name Role Phone Carin Bolden Primary Care Provider [phone] Encounter Details Date Type Department Care Team (Late Contact Info) Description 08/11/2022 Abstract [facility] [address] [place] [address] [phone] Dental, Provider, DDS Social History Tobacco Use [...] Encounters Date Type Department Care Team (Late Contact Info) Description 01/20/2025 9:00 AM EDT Telemedicine [facility] [address] [place] [phone] 03/09/2025 2:30 PM EDT Office Visit [address] [phone] Carin Bolden ANP [address] [place], [place] [phone] documented as of this encounter Procedures Procedure [...] on filedocumented in this encounter Care Teams Field Service Specialist Relationship Specialty Start Date End Date Carin Bolden ANP [address] [place] [phone] PCP - General Family Medicine 10/10/21 documented as of this encounter
[2024-12-16 12:30] LABS: Vitamin B12 437 pg/mL (200-900)
[2024-12-16 12:53] LABS: Alanine Aminotransferase 20 U/L (0-31); Albumin Level 4.1 g/dL (3.5-5.0); Alkaline Phosphatase 37 U/L (39-117); Anion Gap 11 (12-20); Aspartate Amino Transferase 28 U/L (5-31); Bilirubin Direct 0.1 mg/dL (0.0-0.5); Bilirubin Total 0.4 mg/dL (0.0-1.0); Blood Urea Nitrogen 33 mg/dL (9-16); Calcium 9.4 mg/dL (8.4-10.2); Carbon Dioxide 22 mmol/L (22-29); Chloride 111 mmol/L (96-108); Estimated Glomerular Filt Rate > 60; Glucose Random 142 mg/dL (60-115); Potassium 4.9 mmol/L (3.3-5.1); Sodium 139 mmol/L (135-145); TSH reflex Free T4 1.44 uIU/mL (0.32-4.0); Total Protein 7.4 g/dL (6.5-8.0)
== END 2024-12-16 10:11 | disposition home or self-care (01) ==
LOC: HO.HHCL 10:10
PROVIDERS: Nurse Practitioner; Visit Provider Nurse Practitioner Primary Care
DX: R10.10 Upper abdominal pain, unspecified (principal); E11.42 Type 2 diabetes mellitus with diabetic polyneuropathy; Z79.4 Long term (current) use of insulin; Z83.79 Family history of other diseases of the digestive system
CPT/HCPCS: 36415; 80053; 82248; 82607; 84443

== ENCOUNTER 2024-12-29 12:59 | Outpatient (AMB) | payer OTHER, SELFPAY ==
--- NOTE | 2024-12-29 10:54 | MHC.OFFVIS ---
Vital Signs 12/29/24 13:05 Height 5 ft 7 in Weight 203 lb 7.787 oz BMI 31.9 BP 120/70 Blood Pressure Location Rt brachial Position Sitting Pulse 65 Pulse Source Pulse Oximeter Pulse Oximetry (%) 95 Oxygen Delivery Method Room Air Intake Visit Reasons: T2DM Intake Note: Patient presents today for a follow-up on Type 2 Diabetes Mellitus: Last Diabetic eye exam was on: 10/2024 Last Podiatry exam was on: Patient does not see a Vocational Case Manager Most recent HbA1c: 7.4%, 12/01/2023 Random Glucose- _175 ___ mg/dL, Today.--- Livestock Nutrition Territory Manager Name: [id number] [id number] Accompanied by: Self / Same As Patient Allergies No Known Allergies Allergy (Verified 01/03/25 15:20) HPI Comments Details: 68 YO F who is seen in f/u for T2DM at the request of PCP. She was last seen 09/30/24. Initially diagnosed with T2DM in 20 yrs . Was initially started on treatment with metformin 1000 mg BID Tresiba 30 units Novolog Breakfast 30 units lunch 34 units supper 30 units Mounjaro 7.5 mg Qwkly Jardiance 25 mg QD metformin 1000mg bid Treats lows with diabetic shakes. Checks sugar after to ensure it is rising. Treats and checks 1 hr after correction . Family history of T2DM in brothers and sisters. Has retinopathy, stable, Has eyes checked yearly, last eye exam 10/2024 Has catracts, mild has neuropathy, on gabapentin numbness and tingling Has nephropathy, on ARB 05/10/2024 EGFR 51 microalbumin 05/10/2024 133 10/28/2022 847 Has HLD, on statin. LDL 64 11/07 Has CAD. Had diabetes education. Had uterine surgery last mo. Some GI sx from [facility] Medical History Vertigo Cervicalgia Restless legs syndrome (RLS) Neuropathy Palpitations CAD (coronary artery disease) Depression High cholesterol Celiac disease HTN (hypertension) Hypothyroid Insulin dependent type 1 diabetes mellitus Surgical History H/O bilateral breast reduction surgery History of carpal tunnel release of both wrists History of section H/O abdominoplasty Hx of colonoscopy History of arthroplasty of left knee H/O heart artery stent Family History Mother Diabetes High blood pressure Father Diabetes High blood pressure Paternal Aunt Bone cancer Sister Breast cancer Sister Lymph node cancer Social History Household Members: None Housing: Apartment Are you a primary acute care nurse to a significant other at home: No Do you presently have visiting nurse or other home services: No Alcohol intake: never Patient Tobacco Use Status: Never used Tobacco service: No Current occupational status: disabled Physical Exam Vital Signs: Last Vital Signs Pulse 65 12/29/24 13:05 BP 120/70 12/29/24 13:05 Pulse Ox 95 12/29/24 13:05 Oxygen Delivery Method Room Air 12/29/24 13:05 BMI result Body Mass Index 31.9 Const Other: Absence of Cushingoid features. Absence of acromegalic features. Neck exam reveals nl size thyroid about 15 gms. No thyroid nodules palpable. No carotid bruits present. Lungs CTA. Heart S1 S2, Reg R/R. No M/R G. Skin exam reveals absence of vitiligo or acanthosis nigricans. No edema Results Reviewed Results Reviewed: Laboratory Last Values Glucose (Clinic) 175 mg/dL (60-115) H 12/29/24 13:15 Assessment & Plan Assessment & Plan (1) Type 2 diabetes mellitus: Code(s): E11.9 - Type 2 diabetes mellitus without complications Category: Medical Plan: This is a 68-year-old female with a history of type 2 diabetes being treated metformin,Mounjaro and basal-bolus insulin with good but not optimal glycemic control and known macrovascular and microvascular complications namely CAD and neuropathy. New dosing Tresiba 30 units Novolog Breakkfast 20-30 units lunch 34 units supper 30 units Mounjaro 7.5 mg Qwkly synjardy twice daily (combine jardiance and metformin to reduce pill burden) recommend starting freestyle hserwin 3 to get this patient to goal and to safely monitor while taking multiple daily injections Orders: Orders Lipid Panel 12/29/24 E11.9 - Type 2 diabetes mellitus without complications Microalbumin, Random (w Creat) 12/29/24 E11.9 - Type 2 diabetes mellitus without complications Creatinine Urine 12/29/24 E11.9 - Type 2 diabetes mellitus without complications Basic Metabolic Panel Fasting 12/29/24 E11.9 - Type 2 diabetes mellitus without complications Medications: New blood-glucose,cardiovascular surgical tech,cont (FreeStyle [place] 3 [place]) for use with freestyle sensors 1 ea 0RF E11.9 - Type 2 diabetes mellitus without complications blood-glucose sensor (FreeStyle Sherwin 3 Plus Sensor device) every 15 days 2 ea 11RF blood-glucose sensor (FreeStyle [place] 3 Plus Sensor device) every 15 days 2 ea 11RF Synjardy XR 10-1,000 mg (empagliflozin-metformin) 2 tabs (2 x 10-1,000 mg) PO DAILY 60 ea 11RF 30 days NS blood-glucose,cardiovascular surgical tech,cont (FreeStyle [place] 3 [place]) for use with freestyle sensors 1 ea 0RF E11.9 - Type 2 diabetes mellitus without complications Discontinued empagliflozin Discontinued Reason: Doctor's Order 25 mg PO QAM 30 days 30 tabs 4RF E11.9 - Type 2 diabetes mellitus without complications Coding Level of Care Code Est Pt Level 4 (07819) Complex EM visit Add On G2211 Diagnoses Type 2 diabetes mellitus E11.9 Time Spent (min) 30 Comment Time spent reviewing labs/provider notes, face to face, chart doc
[2024-12-29 13:05] VITALS: BP 120/70; PULSE 65; O2SAT 95; BMI 31.9
[2024-12-29 13:39] LABS: Glucose, Whole Blood 175 mg/dL (60-115)
--- OUTSIDE RECORDS SUMMARY | 2024-12-29 15:50 | XMS_ITS | Encounter Summary ---
Author Organization [employer] Address [address] [facility] 7t [place] [address] Care Team Providers Care Forest Ranger Technician Name Role Phone Carin Bolden Primary Care Provider [phone] Reason for Visit * Reason Comments Med Refill Encounter Details Date Type Department Care Team ([facility] st Contact Info) Description 07/06/2024 Refill [facility] MEDICINE [address] [place], [place] [phone] Carin Bolden ANP [address] [place] [address] Social History Tobacco Use Types Packs/Day Years [...] Info) Description 01/20/2025 9:00 AM EDT Telemedicine [facility] MEDICINE [address] [place] [phone] 03/09/2025 2:30 PM EDT Office Visit [facility] MED[facility] [address] [place] [phone] Carin Bolden ANP [address] [place] [address] documented as of this encounter Visit Diagnoses Not on filedocumented in this encounter Additional Health Concerns Assessment Noted Time PHQ-9 Depression Total Score: 8 02/26/20 24 10:46 AM EDT documented as of this encounter Care Teams Forest Ranger Technician Relationship Specialty Start Date End Date Carin Bolden ANP [address] [place] [phone] PCP - General Family Medicine 10/10/21 documented as of this encounter
--- OUTSIDE RECORDS SUMMARY | 2024-12-29 15:50 | XMS_ITS | Encounter Summary ---
Author Organization [employer] Address [address] [facility] 7t [place] [address] Care Team Providers Care Cook Box Filler Name Role Phone Carin Bolden Primary Care Provider [phone] Reason for Visit * Reason Comments Med Refill Encounter Details Date Type Department Care Team (Late st Contact Info) Description 02/19/2023 Refill [facility] MEDICINE [address] [place] [address] [phone] Valentina Escobedo MD [address] [place] [address] [phone] Social History Tobacco Use Types Packs/Day Years [...] Description 01/20/2025 9:00 AM EDT Telemedicine [facility] MEDICINE [address] [place] [address] [phone] 03/09/2025 2:30 PM EDT Office Visit [facility] MED[facility] [address] [place] [address] [phone] Carin Bolden ANP [address] [place], [place] [phone] documented as of this encounter Visit Diagnoses Not on filedocumented in this encounter Care Teams Cook Box Filler Relationship Specialty Start Date End Date Carin Bolden ANP [address] [place] [address] PCP - General Family Medicine 10/10/21 documented as of this encounter
--- OUTSIDE RECORDS SUMMARY | 2024-12-29 15:51 | XMS_ITS | Patient Health Record ---
Author Organization [facility] Address [address] [facility] [address] [place] [address] Care Team Providers Care Heading Saw Operator Name Role Phone [email or web address], DNF Primary Care Provider Unavailab Juliette Rodriguez Unavailable [phone] RANDAL [place] Unavailable Unavailable Migration, Provider Unavailable [...] Location Date Provider Diagnosis [facility] [address] [facility] [address] [place] [address] 06/04/2024 Provider Migration Abdominal pain, epigastric R10.13 [...] Insured Coverage Start Date Coverage End Date [employer] [address] [address] [place] [address] [id number] VANESSA BARKER Self - patient is the [...]
--- OUTSIDE RECORDS SUMMARY | 2024-12-29 15:51 | XMS_ITS | Encounter Summary ---
Author Organization [employer] Address [address] [facility] [address] 7t [place] [address] Care Team Providers Care Scorer Helper Name Role Phone Carin Bolden JOSE CRUZ Primary Care Provider [phone] Reason for Visit * Reason Comments Med Refill Encounter Details Date Type Department Care Team ([facility] st Contact Info) Description 08/16/2024 Refill [facility] [address] [place], [place] [phone] Lori Bee MD [address] [place] [address] Carpal tunnel syndrome, unspecified laterality Social History [...] Info) Description 01/20/2025 9:00 AM EDT Telemedicine [facility] [address] [place] [phone] 03/09/2025 2:30 PM EDT Office Visit [facility] [address] [place] [address] Carin Bolden ANP [address] [place] [address] documented as of this encounter Visit Diagnoses Diagnosis Carpal tunnel syndrome, unspecified laterality documented in this encounter Additional Health Concerns Assessment Noted Time PHQ-9 Depression Total Score: 8 02/26/20 24 10:46 AM EDT documented as of this encounter Care Teams Scorer Helper Relationship Specialty Start Date End Date Carin Bolden ANP [address] [place] [phone] PCP - General Family Medicine 10/10/21 documented as of this encounter
--- OUTSIDE RECORDS SUMMARY | 2024-12-29 15:51 | XMS_ITS ---
Author Organization [facility] Address [address] [facility] [address] [place] [address] Care Team Providers Care Agents' Records Clerk Name Role Phone [email or web address], DNF Primary Care Provider Unavailab Juliette Rodriguez Unavailable [phone] RANDAL [place] Unavailable Unavailable Migration, Provider Unavailable Unavailable REASON FOR VISIT [facility] To [facility] Conversion Encounter Medications Medication SIG (Take, Route, [...] Date Provider Diagnosis [facility] [address] [address] [place] [address] 06/04/2024 Provider Migration Abdominal pain, epigastric R10.13 [...] * VANESSA BARKER NDOB:1955 (69 yo F)Acc No.[id number]:06/04/2024 Patient:?VANESSA BARKER N Provider:? :1955???Age:68 Y???Sex:Female D ate:06/04/2024 Address:[address] [place] [address] [id number] Pcp:DEANA Manriquez Subjective: * Chief Complaints: * ???1. [facility] To [facility] Con version Encounter. * Medical History:? * [...] Electronic signature of Prov ider Migration on 12/29/2024 at 03:51 PM EDT Sign off status: Pending * Provider:? Date:?06/04/2024 Generated for Remy gannon/Alyse/Maximilianoitting on:?12/29/2024 03:51 PM EDT
--- OUTSIDE RECORDS SUMMARY | 2024-12-29 15:51 | XMS_ITS | Encounter Summary ---
Author Organization [employer] Address [address] [facility] 7t [place] [address] Care Team Providers Care Atmospheric Chemist Name Role Phone Carin Bolden Primary Care Provider [phone] Reason for Visit * Reason Comments Med Refill Encounter Details Date Type Department Care Team (Late st Contact Info) Description 12/19/2024 Refill [facility] MEDICINE [address] [place], [place] [phone] Carin Bolden ANP [address] [place] [address] Social History Tobacco Use Types Packs/Day Years [...] Date Recorded Patient Health Questionnaire-9 Score 14 12/16/2024 Patient Health Questionnaire-9 Score 14 12/16/2024 Last PHQ-9: Questionnaire Data Not on file 0 12/16/2024 Housing Stability Answer Date Recorded What is [...] Answer Date Recorded Patient Health Questionnaire-2 Score 4 12/16/2024 Internet Access Answer Date Recorded Internet Access [...] Info) Description 01/20/2025 9:00 AM EDT Telemedicine [facility] [address] [place] [phone] 03/09/2025 2:30 PM EDT Office Visit [facility] [address] [place] [address] Carin Bolden ANP [address] [place] [address] documented as of this encounter Visit Diagnoses Not on filedocumented in this encounter Additional Health Concerns Assessment Noted Time PHQ-9 Depression Total Score: 14 025 1:36 PM EDT documented as of this encounter Care Teams Atmospheric Chemist Relationship Specialty Start Date End Date Carin Bolden ANP [address] [place] [phone] PCP - General Family Medicine 10/10/21 documented as of this encounter
--- OUTSIDE RECORDS SUMMARY | 2024-12-29 15:51 | XMS_ITS | Encounter Summary ---
Author Organization [employer] [facility] Address [address] [facility] 7t [place] [address] Care Team Providers Care Pension Administrator Name Role Phone Carin Bolden Primary Care Provider [phone] Encounter Details Date Type Department Care Team (Late Contact Info) Description 08/11/2022 Abstract [facility] D[facility]AL [address] [place] [address] [phone] Dental, Provider, DDS Social History Tobacco Use [...] Info) Description 01/20/2025 9:00 AM EDT Telemedicine [facility] MEDICINE [address] [place] [address] [phone] 03/09/2025 2:30 PM EDT Office Visit [address] [phone] Carin Bolden ANP [address] [place], [place] [phone] documented as of this encounter Procedures Procedure [...] on filedocumented in this encounter Care Teams Pension Administrator Relationship Specialty Start Date End Date Carin Bolden ANP [address] [place] [phone] PCP - General Family Medicine 10/10/21 documented as of this encounter
--- OUTSIDE RECORDS SUMMARY | 2024-12-29 15:51 | XMS_ITS | Clinical Summary ---
Author Organization [employer] Address [address] [facility] [address] [place] [address] Care Team Providers Care Derrick Worker Well Service Name Role Phone Justin Lopez JOSE CRUZ Primary Care Provider [phone] Allergies No known active allergies Medications * [...] by mouth in the morning. 023 Active Entresto 97-103 MG tablet Take 1 tablet by mouth 2 times daily. Active gabapentin (Neurontin) 300 MG capsule Take 600 mg by mouth at bedtime. 023 Active TRUEplus Lancets 33G miscIndications: Type 2 diabetes mellitus with hyperlipidemia (CMS/HCC) ([facility]) TEST BLOOD SUGAR THREE TIMES DAILY 100 each 5 024 Active NovoLOG FLEXPEN 100 UNIT/ML penIndications:T ype 2 diabetes mellitus with hyperlipidemia (CMS/HCC) (CMS/[facility]) INJECT 20 UNITS SUBCUTANEOUSLY BEFORE MEALS if BG 200+ PER prescriber's instructions. INJECT 30 UNITS if BG 300+ DIRECTED 60 mL Active Alcohol Swabs (Alcohol Prep) 70 % padsIndications: Type 2 diabetes mellitus with hyperglycemia, with long-term current use of insulin ([facility]) USE ONCE DAILY 100 each Active FREESTYLE LITE test stripIndications :Type 2 diabetes mellitus with diabetic polyneuropathy, with long-term current use of insulin ([facility]) TEST BLOOD SUGAR THREE TIMES DAILY DIRECTED 100 strip Active insulin pen needle (Easy Touch Pen [place]) 31G x 6 mm miscIndications: Type 2 diabetes mellitus with diabetic polyneuropathy, with long-term current use of insulin ([facility]) USE THREE DAILY 100 each Active Multiple Vitamin (Multivitamin) tablet TAKE ONE TABLET EVERY MORNING WITH FOOD 90 tablet 3 Active Almacone Double Strength 400-400-40 MG/5ML suspension TAKE FIVE ML BY MOUTH FOUR TIMES DAILY NEEDED Active Tresiba FlexTouch 200 UNIT/ML injection INJECT 34 UNITS SUBCUTANEOUSLY AT BEDTIME Active isosorbide mononitrate ER (Imdur) 30 MG 24 hr tablet Take 30 mg by mouth in the morning. Active Xiidra 5 % solution PLACE ONE DROP IN EACH EYE TWICE DAILY Active Linzess 290 MCG capsule Take 1 capsule by mouth in the morning. Active metoclopramide (Reglan) 5 MG tablet TAKE ONE TABLET in the morning, at noon, in the evening, and at bedtime (BEFORE MEALS) Active pantoprazole (ProtoNix) 40 MG EC tablet Take 40 mg by mouth 2 times daily. Active melatonin 10 MG tablet Take 1 tablet by mouth at bedtime. Purchases OT Active Blood Glucose Monitoring Suppl (FreeStyle [place] Lite) w/Device kit Use to test blood sugar TID dx dm 1 kit Active cetirizine (ZyrTEC) 10 MG tabletIndication s:Rhinitis, unspecified type Take once daily as needed 30 tablet Active Additional Information Patient taking differently: 1 tablet Oral Daily PRN, Take once daily as needed, Reported on 12/20/2024 Aspirin Adult Low Strength 81 MG EC tabletIndication s:Type 2 diabetes mellitus with hyperglycemia, with long-term current use of insulin (CMS/HCC) TAKE ONE TABLET EVERY MORNING 90 tablet 3 025 Active levothyroxine (Synthroid, Levoxyl) 137 MCG tabletIndication s:Hypothyroidism , unspecified type TAKE ONE TABLET EVERY MORNING 90 tablet 1 025 Active Mounjaro 7.5 MG/0.5ML solution auto-injector Inject 7.5 mg under the skin every 7 (seven) days. 025 Active magnesium oxide (Mag-Ox) 400 mg tablet Take 1 tablet by mouth Once per day. Active Zinc Acetate, Oral, (ZINC ACETATE PO) Take 1 tablet by mouth Once per day. Active alpha tocopherol (Vitamin E) 400 units capsule Take 1 capsule by mouth Once per day. Active Collagen-Vitamin C-Biotin (COLLAGEN PO) Take 1 tablet by mouth Once per day. Active carvedilol (Coreg) 6.25 MG tabletIndication s:Heart failure with reduced ejection fraction (CMS/HCC) Take 1 tablet (6.25 mg) by mouth with breakfast and with evening meal. 30 tablet 3 025 Active metFORMIN XR (Glucophage-XR) 500 MG 24 hr tabletIndication s:Diabetic polyneuropathy associated with type 2 diabetes mellitus (CMS/HCC) TAKE TWO TABLETS TWICE DAILY IN THE MORNING AND EVENING WITH FOOD 360 tablet 1 025 Active rosuvastatin (Crestor) 40 MG tabletIndication s:Diabetic polyneuropathy associated with type 2 diabetes mellitus (CMS/HCC),Heart failure with reduced ejection fraction (CMS/HCC) Take 1 tablet (40 mg) by mouth Once per day. 90 tablet 1 025 Active cetirizine (ZyrTEC) 10 MG tabletIndication s:Subacute cough Take 1 tablet (10 mg) by mouth in the morning. As needed for cough. Take daily for 1 week then as needed. 20 tablet 023 2024 Discontinued(R eorder (will not trigger notification to Pharmacy)) albuterol 108 (90 Base) MCG/ACT inhalerIndicatio ns:Subacute cough Inhale 2 puffs every 6 (six) hours if needed for wheezing or shortness of breath. 18 g 1 024 2024 Discontinued aspirin (Aspirin Adult Low Strength) 81 MG EC tabletIndication s:Type 2 diabetes mellitus with hyperglycemia, with long-term current use of insulin (CMS/HCC) Take 1 tablet (81 mg) by mouth in the morning. 90 tablet 3 024 2024 Discontinued metFORMIN XR (Glucophage-XR) 500 MG 24 hr tablet TAKE TWO TABLETS TWICE DAILY IN THE MORNING AND AT BEDTIME WITH FOOD 360 tablet 1 024 2024 Discontinued(R eorder (will not trigger notification to Pharmacy)) baclofen (Lioresal) 10 MG tablet TAKE ONE TABLET EVERY NIGHT AT BEDTIME 024 2024 Discontinued carvedilol (Coreg) 6.25 MG tablet Take 6.25 mg by mouth with breakfast and with evening meal. 023 2024 Discontinued(R eorder (will not trigger notification to Pharmacy)) Santyl 250 UNIT/GM ointment APPLY TOPICALLY TO AFFECTED AREA(s) ONCE DAILY 024 2024 Discontinued rosuvastatin (Crestor) 20 MG tablet Take 40 mg by mouth in the morning. 024 2024 Discontinued Mounjaro 10 MG/0.5ML solution pen-injector INJECT ONE PEN (=10MG) SUBCUTANEOUSLY ONCE A WEEK DIRECTED 024 2024 Discontinued levothyroxine (Synthroid, Levoxyl) 137 MCG tabletIndication s:Hypothyroidism , unspecified type TAKE ONE TABLET EVERY MORNING 90 tablet 1 024 2024 Discontinued escitalopram (Lexapro) 5 MG tabletIndication s:Depression, recurrent (CMS/HCC) Take 1 tablet (5 mg) by mouth Once per day. For depression/anxie ty 30 tablet 2 024 2024 Discontinued(S ale effects) rosuvastatin (Crestor) 40 MG tablet Take 1 tablet by mouth Once per day. 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 Last seen 04/2023. Last ECHO with reduced EF. Scheduled for procedure under general anesthesia. EKG today shows : Premature SV complexes, IVCD , LAFB. I have no other EKGs to compare to Will refer to Dr Thomason for Cardiac Clearance and optimization prior to procedure Palpitations 08/28/2023 Overview (12/19/2024): Last Assessment & Plan: Patient Dors is resolution of palpitations. Recent 30-day Holter monitor as outlined above did not reveal any sustained arrhythmias. Continue on carvedilol. She was encouraged to be mindful of her caffeine and alcohol intake as well as staying hydrated. Coronary artery disease 08/17/2023 08/17/20 Overview (02/10/2024): Education Diagnostician Dr. Thomason Baseline ECG: SR, possible prior [...] colon 08/17/2023 023 Urinary incontinence 08/17/2023 08/17/2023 Diabetic polyneuropathy 08/17/2023 08/17/20 HTN [...] Carpal tunnel syndrome 06/03/2012 Celiac disease 06/03/2012 Moderate depressive disorder 06/03/2012 Type 2 diabetes mellitus wit h diabetic polyneuropathy, with long-term current use of insulin 06/03/2012 08/17/2023 [place] (02/10/2024[place] [facility] [place] Met[place] XR 500mg [...] on Carvedilol once daily ( as per Education Diagnostician) Once cleared by Cardiology the instruction is for patient to take her Carvedilol with a sip of water the morning of the procedure to prevent her BP from going up. Hypertriglyceridemia 06/03/2012 Hypothyroidism 06/03/2012 Obstructive sleep apnea syndrome 06/03/2012 Postmenopausal bleeding 06/03/2012 Resolved Problems Problem Noted Date Diagnosed Date Resolved Date Depression, recurrent 08/17/2023 08/17/20232024 Encounters * This document contains information received from the source organization and may not represent a complete record from that organization. Date Type Department Care Team Description 12/29/2024 Orders Only GENERIC EXTERNAL DATA DEPARTMENT Provider, Generic External Data 12/20/2024 Refill [facility] [address] [place] [address] Justin Lopez ANP 12/19/2024 Refill [facility] [address] [place] [phone] Justin Lopez ANP 12/19/2024 Refill [facility] [address] [place] [address] Justin Lopez ANP Diabetic polyneuropathy associated with type 2 diabetes mellitus ([facility]/HCC) (Primary Dx); Rhinitis, unspecified type; Heart failure with reduced ejection fraction (CMS/HCC) 12/16/2024 Orders Only [facility] [address] [place] [phone] Justin Lopez ANP 12/16/2024 Travel 12/09/2024 Refill [facility] [address] [place] [phone] Justin Lopez ANP Type 2 diabetes mellitus with hyperglycemia, with long-term current use of insulin ([facility]); Hypothyroidism, unspecified type 12/05/2024 11:00 AM EDT Office Visit [facility] [address] [place] [phone] Justin Lopez ANP Neuropathy of left lower extremity (Primary Dx); Rhinitis, unspecified type; Demyelinating neuropathy; Type 2 diabetes mellitus with hyperlipidemia (CMS/HCC) (CMS/HCC); Depression, recurrent (CMS/HCC) 12/05/2024 Travel 11/30/2024 Orders Only GENERIC EXTERNAL DATA DEPARTMENT Provider, Generic External Data 11/30/2024 Telephone [facility] [address] [place] [phone] Justin Lopez ANP 09/30/2024 Orders Only GENERIC EXTERNAL DATA DEPARTMENT Provider, Generic External Data from Last 3 Months Immunizations Name Administration [...] PCV 20 11/24/2022 Pneumococcal Polysaccharide PPSV23 08/02/2007 RSV Bivalent 12/16/2024 TD (adult), 2 Lf tetanus tox oid, [...] Sign Reading Time Taken Comments Blood Pressure 126/64 12/16/2024 9:30 AM EDT Pulse 77 12/16/2024 9:30 AM EDT Temperature 36.1 ??C (97 ??F) [...] Info) Description 01/20/2025 9:00 AM EDT Telemedicine [facility] [address] [place] [address] 03/09/2025 2:30 PM EDT Office Visit [facility] [address] [facility] [place] [phone] Justin Lopez, ANP [address] [facility] [place] [address] Health Maintenance Due Date Last Done Comments CT Colonography 1955 Colonoscopy 1955 Colorectal Cancer Screening 1955 Dental X-Ray: Bitewings 1955 Dental X-Ray: Full Mouth 1955 FIT DNA/Cologuard 1955 FIT 1955 FOBT 1955 Sigmoidoscopy 1955 Eye Exam 1965 Hepatitis C Screening 1973 Zoster Vaccines (1 of 2) 2005 Dental Oral Exam 10/04/2023 04/02/2023 Dental Prophylaxis 10/04/2023 04/02/2023, 10/02/2022 COVID-19 Vaccine ( season) 2024 10/20/2023, 08/09/2022, 02/11/2022 Alcohol/Substance Use Screening 02/25/2025 02/26/2024 Diabetes: Foot Exam 02/25/2025 02/26/2024, 02/26/2024, 02/26/2024, Additional history exists Diabetes: Hemoglobin A1C 03/02/2025 025, 07/21/2024, 02/26/2024, Additional history exists SDOH Screening 03/08/2025 03/08/2024 Depression Monitoring 06/17/2025 12/16/2024, 025 Mammogram 09/21/2025 09/21/2024, 04/2025, 09/18/2023, Additional history exists Diabetes: Urine Protein Screening 11/30/2025 11/30/2024, 10/26/2023, 10/28/2022 Lipid Panel 11/30/2025 11/30/2024, 10/15, 04/03/2023, Additional history exists Tobacco Screening 12/05/2025 12/05/2024 Depression Screening 12/16/2025 12/16/2024, 12/17/19 HPV/Cotest 11/25/2026 11/25/2021, 11/12, 11/25/2021, Additional history exists Pap Smear 11/25/2026 11/25/2021, 10/08/2021 DTaP/Tdap/Td Vaccines (2 - Td or Tdap) 11/26/2031 11/25/2021, 08/14/2009 Hepatitis B Vaccines Completed 12/18/2009, 08/14/2009, 06/29/2009 Pneumococcal Vaccine: 50+ Years Completed 11/24/2022, 08/02/2007 Influenza Vaccine Completed 07/21/2024, , 06/13/2022, Additional history exists RSV Patients and Patients Aged 60 years or older Completed 12/16/2024 HIB Vaccines Aged Out No longer eligi [...] Procedure Name Priority Date/Time Associated Diagnosis Comments GLUCOSE, WHOLE BLOOD Routine 12/29/2024 1:15 PM EDT TSH W/REFLEX TO FT4 Routine 12/16/2024 1 0:12 AM EDT HEPATIC FUNCTION PANEL Routine 12/16/2024 10:12 AM EDT COMPREHENSIVE METABOLIC PANEL Routine 12/16/2024 10:12 AM EDT VITAMIN B12 Routine 12/16/2024 10:12 AM EDT US PELVIS TRANSVAGINAL Routine 12/14/2024 10:55 AM [...] Recently Relevant to Health Maintenance Results * (ABNORMAL) Glucose, Whole Blood (12/29/2024 1:15 PM EDT) Only the most recent of2 resultswithin the time period is included. Glucose, Whole Blood 175(H) 60 - 115 mg/dL [facility] Comment:METER #: [id number] 5Testing performed in the Endocrinology Department [address] , [address], [facility]. 12/29/2024 1:15 PM EDT 12/29/2024 1:39 PM EDT us Generic External Data Provider LAB BLOOD ORDERAB LES Final Result Performing Organization Address City/State/[facility] Co de Phone Number [facility] [address] [place] [phone] * TSH with Reflex to Free T4 (12/16/2024 10:12 AM EDT) TSH reflex Free T4 1.44 0.32 - 4.0 uIU/mL [facility] 12/16/2024 10:1 2 AM EDT 12/16/2024 11:18 AM EDT us Generic External Data Provider LAB BLOOD ORDERAB LES Final Result Performing Organization Address [facility] de Phone Number [facility] [address] [place] [phone] * Vitamin B12 (12/16/2024 10:12 AM EDT) Vitamin B12 437 200 - 900 pg/mL [facility] Comment:NORMAL 200-900 PG/ML INDETERMINATE 160-199 PG/ML DEFICIENT < 160 PG/ML 12/16/2024 10:1 2 AM EDT 12/16/2024 11:18 AM EDT Justin Lopez ANP LAB BLOOD ORDERABLES Final Resul t Performing Organization Address [facility] de Phone Number [facility] [address] [place] [phone] * Hepatic Function Panel (12/16/2024 10:12 AM EDT) Bilirubin, Direct 0.1 0.0 - 0.5 mg/dL [facility] 12/16/2024 10:1 2 AM EDT 12/16/2024 11:18 AM EDT Justin Lopez ANP LAB BLOOD ORDERABLES Final Resul t Performing Organization Address [facility] Co de Phone Number [facility] [address] [place] [phone] * (ABNORMAL) Comprehensive Metabolic Panel (12/16/2024 10:12 AM EDT) Sodium 139 135 - 145 mmol/L [facility] Potassium 4.9 3.3 - 5.1 mmol/L [facility] Comment:Slight Hemolysis.Int erpret result with caution. Chloride 111(H) 96 - 108 mmol/L [facility] Carbon Dioxide 22 22 - 29 mmol/L [facility] Anion Gap 11(L) 12 - 20 [facility] Urea Nitrogen (BUN) 33(H) 9 - 16 mg/dL [facility] Creatinine, Serum 0.81 0.5 - 1.4 mg/dL [facility] Estimated Glomerular Filt Rate >60 [facility] Comment:Chronic Kidney Disea se: Estimated GFR < 60 mL/min/1.88e1Qinamc Kidney Disease: Estimated GFR < 15 mL/min/1.73m2 Glucose 142(H) 60 - 115 mg/dL [facility] Calcium 9.4 8.4 - 10.2 mg/dL [facility] Bilirubin, Total 0.4 0.0 - 1.0 mg/dL [facility] Aspartate Amino Transferase 28 5 - 31 U/L [facility] Comment:Slight Hemolysis.Int erpret result with caution. Alanine Aminotransferase 20 0 - 31 U/L [facility] Total Protein 7.4 6.5 - 8.0 g/dL [facility] Albumin Level 4.1 3.5 - 5.0 g/dL [facility] Alkaline Phosphatase 37(L) 39 - 117 U/L [facility] 12/16/2024 10:1 2 AM EDT 12/16/2024 11:18 AM EDT us Generic External Data Provider LAB BLOOD ORDERAB LES Final Result [facility] [address] [place] [phone] * US Pelvis Transvaginal (12/14/2024 10:55 AM EDT) Anatomical Region Laterality Modality Pelvis Ultrasound 12/14/2024 10:5 5 AM EDT Narrative 12/14/2024 2:11 PM EDT ? [facility] ?[address] ?[place] [address] ? Ultrasound Report ? Signed ? Patient: Osullivan Michele,Bozena N ?MR#: [id number] ?? [id number] ? : 1955 ?Acct:[id number] ? Age/Sex: 69 / F ?ADM Date: 12/14/24 ? Loc: HO.US ? Attending Dr: Arturo De León MD ? Ordering Physician: Arturo De León MD ?? Date of Service: 12/14/24 ?? Procedure(s): US pelvic and transvaginal ?? Accession Number(s): [id number] ? cc: JUSTIN LOPEZ NP; Arturo De [...] DD/ 1055 ? TD/TT: 12/14/24 1124 ? Maintenance Worker: ? Procedure Note Donotuseinterpreter, Image - 12/14/2024 [place] [address] Ultrasound Report Signed Patient: Bozena Gupta NMR#: [id number] : 6Acct:[id number] Age/Sex: 69 / FADM Date: 12/14/24 Loc: HO.US Attending Dr: Arturo De León MD Ordering Physician: Arturo De León MD Date of Service: 12/14/24 Procedure(s): US pelvic and transvaginal Accession Number(s): [id number] cc: JUSTIN LOPEZ NP; Arturo De León [...] Antoine Garay MD 12/14/2024 02:08 PM EDT Dictated By: Antoine Garay MD Signed By: <Electronically signed by Antoine Garay MD in OV> 12/14/24 1408 DD/ 1055 TD/TT: 12/14/24 1124 Maintenance Worker: [facility] External Provider IMG US PROCEDURES Final Result * Creatinine, Random Urine (11/30/2024 8:48 AM EDT) Creatinine, Urine 73.79 mg/dL [facility] 11/30/2024 8:48 AM EDT 11/30/2024 2:07 PM EDT Generic External Data Provider LAB URINE ORDERAB LES Final Result Performing Organization Address [facility] de Phone Number [facility] [address] [place] [phone] * (ABNORMAL) Sed Rate by Modified Melvaren (11/30/2024 8:48 AM EDT) Erythrocyte Sedimentation Rate 28(H) 0 - 20 MM/HR [facility] Comment:Patients with polycy themia and many hemoglobin abnormalitiesmay have depressed sed rates whereas patients with anemiamay have elevated sed rates. Blood Venous blood specimen / Unknown 11/30/2024 8:48 AM EDT 11/30/2024 2:17 PM EDT [facility] LAB BLOOD ORDERABLES Final Resul t Performing Organization Address [facility] Co de Phone Number [facility] [address] [place] [phone] * C-reactive Protein (11/30/2024 8:48 AM EDT) C Reactive Protein 0.10 < or = 0.50 mg/dL [facility] Blood Venous blood specimen / Unknown 11/30/2024 8:48 AM EDT 11/30/2024 2:17 PM EDT [facility] LAB BLOOD ORDERABLES Final Resul t Performing Organization Address City/[facility]/ZIP Co de Phone Number [facility] [address] [place] [phone] * TSH (11/30/2024 8:48 AM EDT) Pathologist [facility] Thyroid Stimulating Hormone 2.14 0.32 - 4.0 uIU/mL [facility] Comment:TSH 3rd Generation ( [facility]) 11/30/2024 8:48 AM EDT 11/30/2024 2:17 PM EDT [facility] External Data Provider LAB BLOOD ORDERAB LES Final Result Performing Organization Address City/[facility]/ZIP Co de Phone Number [facility] [address] [place] [phone] * (ABNORMAL) Hemoglobin A1c (11/30/2024 8:48 AM EDT) Hemoglobin A1c 7.4(H) <6.0 % [facility] Comment:Hemoglobin A1C Refer ence Range Adults: 4.8 - 6.0 % Non diabetic: < 6.0 % Goal: < 7.0 %Additional Action Suggested: > 8.0 %Note: Hemoglobin A1c results are invalid for patients with abnormal amounts of HbF. Blood transfusions may impact the HbA1c concentration in the patient sample. Estimated Average Glucose 166 mg/dL [facility] Comment:eAG = Estimated ave rage glucose which is %A1C expressed asaverage glucose, using the formula of the [id number] Glucose study (ADAG), Diabetes Care, Vol.31,#8,2007 11/30/2024 8:48 AM EDT 11/30/2024 2:17 PM EDT Generic External Data Provider LAB BLOOD ORDERAB LES Final Result Performing Organization Address [facility]/ZIP Co de Phone Number [facility] [address] [place] [phone] * (ABNORMAL) Lipid Panel, Standard (11/30/2024 8:48 AM EDT) Triglycerides 146 <150 mg/dL [facility] Comment:Desirable Triglyceri de: less than 150 mg/dLBorderline High Triglyceride 150-199 mg/dLHigh Triglyceride: 200-499 mg/dLVery High Triglyceride: greater than or equal to 5OO mg/dL Cholesterol 206(H) <200 mg/dL [facility] Comment:Desirable Cholestero l: less than 200 mg/dLBorderline High Cholesterol: 200-239 mg/dLHigh Cholesterol: greater than 239 mg/dL LDL Cholesterol Calculated 125(H) <100 mg/dL [facility] Comment:Desirable LDL: less than 100 mg/dLNear Optimal/Above Optimal LDL: 110- 129 mg/dLBorderline High LDL: 130-159 mg/dLHigh LDL: 160-189 mg/dLVery High LDL: greater than or equal to 190 mg/dL HDL Cholesterol 52 >40 mg/dL [facility] Comment:Desirable HDL: great er than 40 mg/dL Note: This HDL assay may give artificially low results in patients with liver disease. 11/30/2024 8:48 AM EDT 11/30/2024 2:17 PM EDT us Generic External Data Provider LAB BLOOD ORDERAB LES Final Result Performing Organization Address City/[facility]/ZIP Co de Phone Number [facility] [address] [place] [phone] * BI Mammogram Screening Tomosynthesis Bilateral (09/21/2024 1:15 PM EST) Anatomical Region Laterality Modality Breast Bilateral Mammography 09/21/2024 1:15 PM EST Narrative 09/28/2024 8:33 AM EST ? [facility] ? [address] ?[place] [address] ? Mammography Report ? Signed ? Patient: Bozena Gupta N ?MR#: [id number] ?? [id number] ? : 1955 ?Acct:[id number] ? Age/Sex: 68 / F ?ADM Date: 09/21/24 ? Loc: HO.MAMMO ? Attending Dr: Justin Lopez DRILLING ENGINEER ? Ordering Physician: JUSTIN LOPEZ NP ?Results: 2Benign Fin ?? dings ? Date of Service: 09/21/24 ?Follow Up: 1 Year From Orig ?? inal Mammogram ? Procedure(s): MM tomosynthesis screening BI ?? Accession Number(s): [id number] ? cc: JOHN,JUSTIN NARANJO ? EXAMINATION: ?? [...] DD/ 1315 ? TD/TT: 09/21/24 1329 ? Maintenance Worker: ? Procedure Note Donfarhanater, Image - 09/28/2024 [place] [facility] [address] [place] [address] Mammography Report Signed Patient: Bozena Gupta [facility]#: [id number] : 6Acct:[id number] Age/Sex: 68 / FADM Date: 09/21/24 Loc: HO.DEDRICKO Attending Dr: Justin Lopez DRILLING ENGINEER Ordering Physician: JUSTIN LOPEZesults: 2Benisumi arce Date of Service: 09/21/24Follow Up: 1 Year From Orig inal Mammogram Procedure(s): MM tomosynthesis screening BI Accession Number(s): [id number] cc: JUSTIN LOPEZ NP EXAMINATION: MM SCREENING [...] 09/28/24 0830 DD/ 1315 TD/TT: 09/21/24 1329 Maintenance Worker: Justin John [facility] IMG BI PROCEDURES Final Result * Pap Smear (11/25/2021) Pap Negative for intraephithelial lesion or malignancy Negative for intraephithelial lesion or malignancy, Other HPV Undetected Historical Provider HEALTH MAINTENANCE Edited Result - Final from Last 3 Months or Most Recently Relevant to Health [place] [id number] [facility] Care Teams Derrick Worker Well Service Relationship Specialty Start Date End Date Justin Lopez ANP [address] [place] [phone] PCP - General Family Medicine 10/10/21
--- OUTSIDE RECORDS SUMMARY | 2024-12-29 15:51 | XMS_ITS | Clinical Summary ---
Author Organization [facility] Address [id number] [place] [address] Care Team Providers Care Fabric Normalizer Name Role Phone Carin Bolden NP Primary Care Provider [phone] Allergies No known active allergies Medications aspirin [...] 1 Tablet by mouth daily. 4 Active spironolactone (ALDACTONE) 25 mg [...] Does not apply route Once. 3 Active sacubitriL-vals prasanna (Entresto) 97-103 mg per tablet Take 1 tablet by mouth 2 (two) times a day. 180 tablet 1 5 Active sacubitriL-vals prasanna (Entresto) 97-103 mg per tablet Take 97-103 mg by mouth 2 times daily. 4 12/21/19 25 Discontinu ed(Reorder ) isosorbide mononitrate (IMDUR) 30 mg 24 hr tablet Take 1 tablet (30 mg total) by mouth 1 (one) time each day in the morning. 90 tablet 1 5 12/20/19 25 Discontinu ed(Patient Discharge) Active Problems Problem Noted Date Diagnosed Date Palpitations 08/28/2023 Overview (09/27/2024): Last Assessment & Plan: Patient Dors is resolution of palpitations. Recent 30-day Holter monitor as outlined above did not reveal any sustained arrhythmias. Continue on carvedilol. She was encouraged to be mindful of her caffeine and alcohol intake as well as staying hydrated. Heart failure with reduced e jection fraction (CMS/HCC V24, CMS/HCC V28) 03/07/2022 Overview (09/27/2024): Last Assessment & Plan: HFrEF-EF [...] stent placement to the mid LAD in 2018 at [facility]. The patient had been reporting episodes of [...] every night. Depression 05/09/2010 DM (diabetes mellitus) ([facility] V24, [facility] V28 ) 05/09/2010 HTN (hypertension) 05/09/2010 Overview (09/27/2024): Last [...] Encounters Date Type Department Care Team Description 12/20/2024 Telephone [facility] [address] [place] [address] Michelle Arellano NP Med Refill (Entresto 97-103 refill ) 12/19/2024 Telephone [facility] [address] [place] [address] Adelina Chan MA Medication 10/18/2024 Telephone [facility] [address] [place] [address] Adelina Chan MA lab results from Last 3 Months Surgical History Surgery Date Site/Laterality Comments COLONOSCOPY 2006? 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 OTHER SURGICAL HISTORY PROCEDURE: HISTORY OTHER; COMMENT: Breast reduction TUBAL LIGATION Bilateral PROCEDURE: HISTORICAL TUBAL LIGATION Medical History Medical History Date Comments Diabetes mellitus ([facility] V24, [facility] V28) DX:Diabetes mellitus (HCC) JEVON (obstructive sleep apnea) DX [...] Description 02/15/2025 2:00 PM EDT Office Visit [facility] [address] [place] [address] [place] [address] Rob Melendez MD [address] [place] [address] [address] [place] [address] Health Maintenance Due Date Last Done Comments [...] age to complete this topic Meningococcal B Vaccine Aged Out No l onger eligible based on patient's age to complete [...] 40 mg/dL [facility] 1 LDL Chol Calc ([facility]) 75 0 - 99 mg/dL [facility] 1 10/18/2024 8:03 AM EST 10/18/2024 Narrative [facility] 1 - 10/18/2024 11:06 PM EST Performed at: ??01 - [facility] [address] ??[id number] Cocoa Milling Machine Operator: Kelley Hughes MD, Phone: ??[phone] Michelle Arellano NP LAB BLOOD ORDERABLES Final [...] AM EST Performed at: ??01 - [facility] [address] ??[id number] Cocoa Milling Machine Operator: Kelley Hughes MD, Phone: ??[phone] us Michelle Arellano NP LAB BLOOD ORDERABLES Final Result [facility] 1 from Last 3 [place] [id number] [employer] MEDICARE Member Subscriber Plan / Payer (Ef fective 2024-Present) Name:Bozena Osullivan Relation to Subscriber:Self Name:Bozena Osullivan Payer ID:[id number] Group ID:Not on file Type:Not on file Address: [place] [address] [address] [phone] Care Teams Fabric Normalizer Relationship Specialty Start Date End Date Carin Bolden NP [address] [place] [address] [place] [address] PCP - General 11/07/21
--- OUTSIDE RECORDS SUMMARY | 2024-12-29 15:51 | XMS_ITS | Encounter Summary ---
Author Organization [employer] Address [address] [facility] 7t [place] [address] Care Team Providers Care Conventions Reservationist Name Role Phone Carin Bolden Primary Care Provider [phone] Reason for Visit * Reason Comments Med Refill Encounter Details Date Type Department Care Team (Late st Contact Info) Description 08/28/2023 Refill [facility] [address] [place], [place] [phone] Carin Bolden ANP [address] [place], [place] [phone] Subacute cough Social History Tobacco Use Types [...] Description 01/20/2025 9:00 AM EDT Telemedicine [facility] [address] [place] [address] 03/09/2025 2:30 PM EDT Office Visit [facility] [address] [place] [address] Carin Bolden ANP [address] [place] [address] documented as of this encounter Visit Diagnoses Diagnosis Subacute cough documented in this encounter Additional Health Concerns Assessment Noted Time PHQ-9 Depression Total Score: 14 023 2:16 PM EDT documented as of this encounter Care Teams Conventions Reservationist Relationship Specialty Start Date End Date Carin Bolden ANP [address] [place] [address] PCP - General Family Medicine 10/10/21 documented as of this encounter
--- OUTSIDE RECORDS SUMMARY | 2024-12-29 15:51 | XMS_ITS | Encounter Summary ---
Author Organization [employer] Address [address] [facility] [address] [address] 7t [place] [address] Care Team Providers Care Coo & Co Founder Name Role Phone Kimi Carin BILLINGSLEY Primary Care Provider [phone] Encounter Details Date Type Department Care Team (Late st Contact Info) Description 12/29/2024 Orders Only GENERIC EXTERNAL DATA DEPARTMENT Provider, Generic External Data Social History Tobacco Use Types Packs/Day Years [...] Info) Description 01/20/2025 9:00 AM EDT Telemedicine [address] [address] 03/09/2025 2:30 PM EDT Office Visit [facility] [address] [place] [phone] Carin Bolden, JOSE CRUZ 230 [place] [address] documented as of this encounter Procedures Procedure Name Priority Date/Time Associated Diagnosis Comments GLUCOSE, WHOLE BLOOD Routine 12/29/2024 1:15 PM EDT documented in this encounter Results * (ABNORMAL) Glucose, Whole Blood (12/29/2024 1:15 PM EDT) Glucose, Whole Blood 175(H) 60 - 115 mg/dL [facility] Comment:METER #: [id number] 5Testing performed in the Endocrinology Department [address] , [address], [place]. 12/29/2024 1:15 PM EDT 12/29/2024 1:39 PM EDT us Generic External Data Provider LAB BLOOD ORDERAB LES Final Result [facility] [address] [place] [phone] documented in this encounter Visit Diagnoses Not on filedocumented in this encounter Additional Health Concerns Assessment Noted Time PHQ-9 Depression Total Score: 14 025 1:36 PM EDT documented as of this encounter Care Teams Coo & Co Founder Relationship Specialty Start Date End Date Carin Bolden ANP [address] [place] [address] PCP - General Family Medicine 10/10/21 documented as of this encounter
--- OUTSIDE RECORDS SUMMARY | 2024-12-29 15:51 | XMS_ITS | Encounter Summary ---
Author Organization [employer] Address [address] [facility] 7t [place] [address] Care Team Providers Care Paper Reclaiming Machine Operator Name Role Phone Carin Bolden Primary Care Provider [phone] Encounter Details Date Type Department Care Team (Late st Contact Info) Description 07/22/2023 Abstract [facility] [address] [place] [address] Carin Bolden ANP [address] [place] [address] Social History Tobacco Use Types Packs/Day Years [...] Info) Description 01/20/2025 9:00 AM EDT Telemedicine [facility] [address] [place] [address] 03/09/2025 2:30 PM EDT Office Visit [facility] [address] [place] [address] Carin Bolden ANP [address] [place] [address] documented as of this encounter Visit Diagnoses Not on filedocumented in this encounter Additional Health Concerns Assessment Noted Time PHQ-9 Depression Total Score: 14 023 2:16 PM EDT documented as of this encounter Care Teams Paper Reclaiming Machine Operator Relationship Specialty Start Date End Date Carin Bolden ANP [address] [place] [address] PCP - General Family Medicine 10/10/21 documented as of this encounter
--- OUTSIDE RECORDS SUMMARY | 2024-12-29 15:51 | XMS_ITS | Encounter Summary ---
Author Organization [employer] [facility] Address [address] [facility] 7t [place] [address] Care Team Providers Care Cnc Grinder Name Role Phone Carin Bolden Primary Care Provider [phone] Encounter Details Date Type Department Care Team (Latest Contact Info) Description 02/17/2022 Abstract [facility] Dental, Provider, DDS Social History [...] Info) Description 01/20/2025 9:00 AM EDT Telemedicine [facility] [address] [place] [address] 03/09/2025 2:30 PM EDT Office Visit [facility] 230 [place] [address] Carin Bolden ANP 230 [place] [address] documented as of this encounter Visit Diagnoses Not on filedocumented in this encounter Care Teams Cnc Grinder Relationship Specialty Start Date End Date Carin Bolden ANP [address] [place] [address] PCP - General Family Medicine 10/10/21 documented as of this encounter
--- OUTSIDE RECORDS SUMMARY | 2024-12-29 15:51 | XMS_ITS | Encounter Summary ---
Author Organization [employer] Address [address] [facility] [address] 7[address] [place] [address] Care Team Providers Care Shoe Folder Name Role Phone Carin Bolden JOSE CRUZ Primary Care Provider [phone] Encounter Details Date Type Department Care Team (Late st Contact Info) Description 06/19/2023 Abstract [facility] [address] [place], [place] [phone] Loree Chan Social History Tobacco Use Types [...] Info) Description 01/20/2025 9:00 AM EDT Telemedicine [facility] [address] [place] [address] 03/09/2025 2:30 PM EDT Office Visit [address] [address] Carin Bolden ANP 230 [place] [address] documented as of this encounter Procedures Procedure [...] documented as of this encounter Care Teams Shoe Folder Relationship Specialty Start Date End Date Carin Bolden ANP [address] [place] [address] PCP - General Family Medicine 10/10/21 documented as of this encounter
== END 2024-12-29 13:46 | disposition home or self-care (01) ==
LOC: HO.ENCR 12:59
PROVIDERS: PCP Nurse Practitioner Primary Care; Visit Provider Nurse Practitioner Adult Health
DX: E11.9 Type 2 diabetes mellitus without complications (principal)
CPT/HCPCS: 99214; G2211

== ENCOUNTER → 2024-12-29 12:59 | Outpatient (BNVA) | payer OTHER, SELFPAY | PROVIDERS: PCP Nurse Practitioner Primary Care; Visit Provider Nurse Practitioner Adult Health | DX: E11.40 Type 2 diabetes mellitus with diabetic neuropathy, unspecified (principal); I25.10 Atherosclerotic heart disease of native coronary artery without angina pectoris; Z79.84 Long term (current) use of oral hypoglycemic drugs; Z79.899 Other long term (current) drug therapy | CPT/HCPCS: 82947; 99212 ==

== ENCOUNTER 2025-01-03 15:16 | Outpatient (AMB) | payer OTHER, SELFPAY ==
--- NOTE | 2025-01-03 15:18 | A.OFFVIS_ITS ---
Vital Signs 01/03/25 15:19 Height 5 ft 7 in Weight 203 lb BMI 31.8 Intake Visit Reasons: Ultra sound follow up Television Anchor Required: Yes Television Anchor Language: Delimber Operator Services: Television Anchor Present (in person) Television Anchor Name: Emely Taylor LAKEISHA Information Interpreted: non-clinical & clinical Accompanied by: Self / Same As Patient Allergies No Known Allergies Allergy (Verified 01/03/25 15:20) Post menopausal: Yes HPI Comments Details: Presenting for ultrasound follow-up with no complaints, no pelvic pain cramping or vaginal bleeding. Pelvic ultrasound done recently showed the following: Uterus: The uterus is normal in size, measuring 8.2 x 3.5 x 5.2 cm. Myometrium has a normal echotexture. Again seen is an anterior uterine fibroid of the lower uterine segment measuring 10 x 12 x 16 mm (previously 11 x 12 x 18 mm). Endometrium: The endometrial stripe measures 3 mm in thickness. Right ovary: The right ovary measures 2.4 x 1.8 x 2.2 cm. The right ovary is normal in size and echotexture. Left ovary: The left ovary measures 1.8 x 1.7 x 1.7 cm. The left ovary is normal in size and echotexture. Pelvic fluid: none. The patient had endometrial polyp on ultrasound done last year, was refer to [facility] for polypectomy which was done according to patient and was benign, no records available. Since then the patient is doing well with no complaints [facility] Medical History Vertigo Cervicalgia Restless legs syndrome (RLS) Neuropathy Palpitations CAD (coronary artery disease) Depression High cholesterol Celiac disease HTN (hypertension) Hypothyroid Insulin dependent type 1 diabetes mellitus Surgical History H/O bilateral breast reduction surgery History of carpal tunnel release of both wrists History of section H/O abdominoplasty Hx of colonoscopy History of arthroplasty of left knee H/O heart artery stent Family History Mother Diabetes High blood pressure Father Diabetes High blood pressure Paternal Aunt Bone cancer Sister Breast cancer Sister Lymph node cancer Social History Household Members: None Housing: Apartment Are you a primary floor care technician to a significant other at home: No Do you presently have visiting nurse or other home services: No Alcohol intake: never Patient Tobacco Use Status: Never used Tobacco service: No Current occupational status: disabled Review of Systems Const All systems reviewed & are unremarkable except as noted in HPI and below Reports as per HPI and Reports no additional complaints GI Reports no additional complaints Reports no additional complaints Physical Exam Vital Signs: BMI result Body Mass Index 31.8 Assessment & Plan Assessment & Plan (1) Uterine myoma: Code(s): D25.9 - Leiomyoma of uterus, unspecified Category: Medical Plan: Discussed with the patient the findings on pelvic ultrasound & the risk of myosarcoma; in addition reviewed with the patient that malignancy and pre malignancy cannot be ruled out without hysterectomy for pathological evaluation ; furthermore, explained to the patient the limitation of pelvic ultrasound and endometrial biopsy in the setting. Discussed with the patient the options of treatment including expectant management versus hysterectomy; the pros and cons, risks benefits of each approach were discussed with the patient including the fact that in cases of myosarcoma, surgical treatment can lead to early diagnosis and positively affects the prognosis; after further discussion, the patient decided to proceed with expectant management. Will repeat pelvic ultrasound periodically. Instructions given to patient to call in case any of the following occurs: pressure symptoms, abnormal uterine bleeding, pelvic pain; and to schedule a 12- months pelvic ultrasound (order placed) and a follow-up appointment . All questions answered, the patient verbalized understanding and agreed with the plan . Orders: Orders US pelvic and transvaginal 12 Months D25.9 - Leiomyoma of uterus, unspecified Coding Level of Care Code Est Pt Level 3 (20987) Diagnoses Uterine myoma D25.9
[2025-01-03 15:19] VITALS: BMI 31.8
--- OUTSIDE RECORDS SUMMARY | 2025-01-03 18:10 | XMS_ITS | Encounter Summary ---
Author Organization [employer] Address [address] [facility] [address] 7t [place] [address] Care Team Providers Care Multigraph Operator Name Role Phone Carin Bolden JOSE CRUZ Primary Care Provider [phone] Reason for Visit * Reason Comments Med Refill Encounter Details Date Type Department Care Team ([facility] st Contact Info) Description 08/16/2024 Refill [facility] [address] [place], [place] [phone] Lori Bee MD [address] [place] [address] Carpal tunnel syndrome, unspecified laterality Social History [...] Info) Description 01/20/2025 9:00 AM EDT Telemedicine [facility] [address] [place] [address] 03/09/2025 2:30 PM EDT Office Visit [facility] [address] [place] [address] Carin Bolden ANP [address] [place] [address] documented as of this encounter Visit Diagnoses Diagnosis Carpal tunnel syndrome, unspecified laterality documented in this encounter Additional Health Concerns Assessment Noted Time PHQ-9 Depression Total Score: 8 02/26/20 24 10:46 AM EDT documented as of this encounter Care Teams Multigraph Operator Relationship Specialty Start Date End Date Carin Bolden ANP [address] [place] [address] PCP - General Family Medicine 10/10/21 documented as of this encounter
--- OUTSIDE RECORDS SUMMARY | 2025-01-03 18:10 | XMS_ITS | Encounter Summary ---
Author Organization [facility] Address [address] [facility] 7t [place] [address] Care Team Providers Care Assorter Name Role Phone Carin Bolden Primary Care Provider [phone] Encounter Details Date Type Department Care Team (Latest Contact Info) Description 02/17/[address] [facility] Dental, Provider, DDS Social History [...] Info) Description 01/20/2025 9:00 AM EDT Telemedicine [facility] [address] [place] [address] 03/09/2025 2:30 PM EDT Office Visit [facility] [address] [place] [address] Carin Bolden ANP 230 [place] [address] documented as of this encounter Visit Diagnoses Not on filedocumented in this encounter Care Teams Assorter Relationship Specialty Start Date End Date Carin Bolden ANP 230 [place] [address] PCP - General Family Medicine 10/10/21 documented as of this encounter
--- OUTSIDE RECORDS SUMMARY | 2025-01-03 18:10 | XMS_ITS | Clinical Summary ---
Author Organization [facility] Address [address] [place] [address] Care Team Providers Care Director Of Sales And Marketing Name Role Phone Carin Bolden NP Primary Care Provider [phone] Allergies No known active allergies Medications aspirin [...] to the mid LAD in 2018 at [facility]. The patient had been reporting episodes [...] every night. Depression 05/09/2010 DM (diabetes mellitus) ([facility] V24, [facility] V28 ) 05/09/2010 HTN (hypertension) 05/09/2010 Overview [...] Type Department Care Team Description 12/20/2024 Telephone [facility] Cardiology [facility] [address] [place] [address] Michelle Arellano NP Med Refill (Entresto 97-103 refill ) 12/19/2024 Telephone [facility] [address] [place] [address] Adelina Chan MA Medication 10/18/2024 Telephone [facility] [address] [place] [address] Adelina Chan MA lab results from Last 3 Months Surgical History Surgery Date Site/Laterality Comments COLONOSCOPY 2006? PROCEDURE: [place] COLONOSCOPY FLX DX W/COLLJ SPEC WHEN PFRMD ESOPHAGOGASTRODUODENOSCOPY 05/13/2010 PROCEDURE: CA EGD TRANSORAL BIOPSY SINGLE/MULTIPLE; COMMENT: Normal esophagus [...] History Medical History Date Comments Diabetes mellitus ([facility] V24, [facility] V28) DX:Diabetes mellitus (HCC) JEVON (obstructive sleep [...] Description 02/15/2025 2:00 PM EDT Office Visit [facility] [address] [place] [address] [place] [address] Rob Melendez MD [address] [place] [address] [address] [place] [address] Health Maintenance Due Date Last Done Comments [...] 40 mg/dL [facility] 1 LDL Chol Calc ([facility]) 75 0 - 99 mg/dL [facility] 1 10/18/2024 8:03 AM EST 10/18/2024 Narrative [facility] 1 - 10/18/2024 11:06 PM EST Performed at: ??01 - [facility] [address] ??[id number] Piledriver Carpenter: Kelley Hughes MD, Phone: ??[phone] Michelle Arellano NP LAB BLOOD ORDERABLES Final [...] AM EST Performed at: ??01 - [facility] [address] ??[id number] Piledriver Carpenter: Kelley Hughes MD, Phone: ??[phone] us Michelle Arellano NP LAB BLOOD ORDERABLES Final Result [facility] 1 from Last 3 [place] [id number] [employer] MEDICARE Member Subscriber Plan / Payer (Ef fective 2024-Present) Name:Bozena Osullivan Relation to Subscriber:Self Name:Bozena Osullivan Payer ID:[id number] Group ID:Not on file Type:Not on file Address: [place] [address] [address] [phone] Care Teams Director Of Sales And Marketing Relationship Specialty Start Date End Date Carin Bolden NP [address] [place] [address] [place] [phone] PCP - General 11/07/21
--- OUTSIDE RECORDS SUMMARY | 2025-01-03 18:10 | XMS_ITS | Encounter Summary ---
Author Organization [employer] Address [address] [facility] 7t [place] [address] Care Team Providers Care Fruit Harvester Name Role Phone Carin Bolden Primary Care Provider [phone] Reason for Visit * Reason Comments Med Refill Encounter Details Date Type Department Care Team (Late st Contact Info) Description 12/19/2024 Refill [facility] [address] [place], [place] [phone] Carin Bolden ANP [address] [place] [address] Social History Tobacco Use Types Packs/Day Years [...] Info) Description 01/20/2025 9:00 AM EDT Telemedicine [facility] [address] [place] [address] 03/09/2025 2:30 PM EDT Office Visit [facility] [address] [place] [address] Carin Bolden ANP [address] [place] [address] documented as of this encounter Visit Diagnoses Not on filedocumented in this encounter Additional Health Concerns Assessment Noted Time PHQ-9 Depression Total Score: 14 025 1:36 PM EDT documented as of this encounter Care Teams Fruit Harvester Relationship Specialty Start Date End Date Carin Bolden ANP [address] [place] [address] PCP - General Family Medicine 10/10/21 documented as of this encounter
--- OUTSIDE RECORDS SUMMARY | 2025-01-03 18:10 | XMS_ITS | Encounter Summary ---
Author Organization [employer] Address [address] [facility] 7t [place] [address] Care Team Providers Care Intertype Operator Name Role Phone Carin Bolden Primary Care Provider Reason for Visit * Reason Comments Med Refill Encounter Details Date Type Department Care Team (Late st Contact Info) Description 02/19/2023 Refill [facility] [address] [place] [phone] Valentina Escobedo MD [address] [place] [phone] Social History Tobacco Use Types Packs/Day Years [...] Info) Description 01/20/2025 9:00 AM EDT Telemedicine [facility] [address] [place] [phone] 03/09/2025 2:30 PM EDT Office Visit [facility] [address] [place] [phone] Carin Bolden ANP [address] [place], [place] [phone] documented as of this encounter Visit Diagnoses Not on filedocumented in this encounter Care Teams Intertype Operator Relationship Specialty Start Date End Date Carin Bolden ANP [address] [place] [address] PCP - General Family Medicine 10/10/21 documented as of this encounter
--- OUTSIDE RECORDS SUMMARY | 2025-01-03 18:10 | XMS_ITS | Encounter Summary ---
Author Organization [employer] Address [address] [facility] 7t [place] [address] Care Team Providers Care Drywall Taper Name Role Phone Carin Bolden Primary Care Provider [phone] Reason for Visit * Reason Comments Med Refill Encounter Details Date Type Department Care Team ([facility] st Contact Info) Description 07/06/2024 Refill [facility] [address] [place], [place] [phone] Carin Bolden ANP [address] [place] [address] Social History Tobacco Use Types Packs/Day Years [...] AM EDT Telemedicine [facility] [address] [place] [address] 03/09/2025 2:30 PM EDT Office Visit [facility] [address] [place] [address] Carin Bolden ANP [address] [place] [address] documented as of this encounter Visit Diagnoses Not on filedocumented in this encounter Additional Health Concerns Assessment Noted Time PHQ-9 Depression Total Score: 8 02/26/20 24 10:46 AM EDT documented as of this encounter Care Teams Drywall Taper Relationship Specialty Start Date End Date Carin Bolden ANP [address] [place] [phone] PCP - General Family Medicine 10/10/21 documented as of this encounter
--- OUTSIDE RECORDS SUMMARY | 2025-01-03 18:10 | XMS_ITS | Encounter Summary ---
Author Organization [employer] Address [address] [facility] [address] 7t [place] [address] Care Team Providers Care Bun Machine Operator Name Role Phone Carin Bolden JOSE CRUZ Primary Care Provider [phone] Encounter Details Date Type Department Care Team (Late st Contact Info) Description 06/19/2023 Abstract [facility] [address] [place], [place] [phone] Loree Chan Social History Tobacco Use Types [...] AM EDT Telemedicine [facility] [address] [place] [address] 03/09/2025 2:30 PM EDT Office Visit [address] [address] Carin Bolden ANP [address] [place] [address] documented as of this encounter Procedures Procedure [...] documented as of this encounter Care Teams Bun Machine Operator Relationship Specialty Start Date End Date Carin Bolden ANP [address] [place] [address] PCP - General Family Medicine 10/10/21 documented as of this encounter
--- OUTSIDE RECORDS SUMMARY | 2025-01-03 18:10 | XMS_ITS ---
Author Organization [facility] Address [address] [place] [address] Care Team Providers Care Calender Wind Up Helper Name Role Phone [email or web address], DNF Primary Care Provider Unavailab Juliette Rodriguez Unavailable [phone] RANDAL [place] Unavailable Unavailable Migration, Provider Unavailable Unavailable REASON FOR VISIT [facility] To [facility] Conversion Encounter Medications Medication SIG (Take, [...] Date Provider Diagnosis [facility] [address] [place] [address] 06/04/2024 Provider Migration Abdominal pain, epigastric R10.13 [...] * VANESSA BARKER NDOB:1955 (69 yo F)Acc No.[id number]:06/04/2024 Patient:?VANESSA BARKER N Provider:? :1955???Age:68 Y???Sex:Female D ate:06/04/2024 Address:[address] [place] [phone] Pcp:DEANA Manriquez Subjective: * Chief Complaints: * ???1. [facility] Con version Encounter. * Medical History:? [...] Electronic signature of Prov ider Migration on 01/03/2025 at 06:10 PM EDT Sign off status: Pending * Provider:? Date:?06/04/2024 Generated for Remy gannon/Alyse/Maximilianoitting on:?01/03/2025 06:10 PM EDT
--- OUTSIDE RECORDS SUMMARY | 2025-01-03 18:10 | XMS_ITS | Encounter Summary ---
Author Organization [employer] Address 75 [facility] 7t [place] [address] Care Team Providers Care External Grinder Tool Name Role Phone Carin Bolden Primary Care Provider [phone] Encounter Details Date Type Department Care Team (Late st Contact Info) Description 07/22/2023 Abstract [facility] [address] [place] [address] Carin Bolden ANP 230 [place] [address] Social History Tobacco Use Types Packs/Day Years [...] Info) Description 01/20/2025 9:00 AM EDT Telemedicine [facility] [address] [place] [address] 03/09/2025 2:30 PM EDT Office Visit [facility] [address] [place] [phone] Carin Bolden ANP [address] [place] [address] documented as of this encounter Visit Diagnoses Not on filedocumented in this encounter Additional Health Concerns Assessment Noted Time PHQ-9 Depression Total Score: 14 023 2:16 PM EDT documented as of this encounter Care Teams External Grinder Tool Relationship Specialty Start Date End Date Carin Bolden ANP [address] [place] [address] PCP - General Family Medicine 10/10/21 documented as of this encounter
--- OUTSIDE RECORDS SUMMARY | 2025-01-03 18:10 | XMS_ITS | Clinical Summary ---
Author Organization [employer] Address 75 [facility] 7t [place] [address] Care Team Providers Care Memory Care Program Resident Name Role Phone Justin Lopez JOSE CRUZ Primary Care Provider [phone] Allergies No known active allergies Medications * [...] Type 2 diabetes mellitus with hyperlipidemia (CMS/HCC) ([facility]) TEST BLOOD SUGAR THREE TIMES DAILY 100 each 5 024 Active NovoLOG FLEXPEN 100 UNIT/ML penIndications:T ype 2 diabetes mellitus with hyperlipidemia (CMS/HCC) ([facility]) INJECT 20 UNITS SUBCUTANEOUSLY BEFORE MEALS if BG 200+ PER prescriber's instructions. INJECT 30 UNITS if BG 300+ DIRECTED 60 mL Active Alcohol Swabs (Alcohol Prep) 70 % padsIndications: Type 2 diabetes mellitus with hyperglycemia, with long-term current use of insulin ([facility]) USE ONCE DAILY 100 each Active FREESTYLE LITE test stripIndications :Type 2 diabetes mellitus with diabetic polyneuropathy, with long-term current use of insulin ([facility]) TEST BLOOD SUGAR THREE TIMES DAILY DIRECTED 100 strip Active insulin pen needle (Easy Touch Pen [place]) 31G x 6 mm miscIndications: Type 2 diabetes mellitus with diabetic polyneuropathy, with long-term current use of insulin ([facility]) USE THREE DAILY 100 each Active Multiple [...] OT Active Blood Glucose Monitoring Suppl (FreeStyle [place] Lite) w/Device kit Use to test blood [...] polypectomy versus endometrial biopsy On: TBD By: ELECTRONICS MECHANIC Anesthesia: General After careful review of patient's [...] 9:29 AM EST): Under the care of Bark Peeler Rob Thomason. Last seen 04/2023. Last ECHO [...] Coronary artery disease 08/17/2023 08/17/20 Overview (02/10/2024): Bark Peeler Dr. Thomason Baseline ECG: SR, possible prior [...] use of insulin 06/03/2012 08/17/2023 Overview (02/10/2024): [facility] endocrinology Metformin XR 500mg [...] on Carvedilol once daily ( as per Bark Peeler) Once cleared by Cardiology the instruction is [...] DEPARTMENT Provider, Generic External Data 12/20/2024 Refill [facility] [address] [place] [address] Justin Lopez ANP 12/19/2024 Refill [facility] [address] [place] [address] Justin Lopez ANP 12/19/2024 Refill [facility] [address] [place] [address] Justin Lopez ANP Diabetic polyneuropathy associated with type 2 diabetes mellitus ([facility]/HCC) (Primary Dx); Rhinitis, unspecified type; Heart failure with reduced ejection fraction (CMS/HCC) 12/16/2024 Orders Only [facility] [address] [place] [address] Justin Lopez ANP 12/16/2024 Travel 12/09/2024 Refill [facility] [address] [place] [address] Justin Lopez ANP Type 2 diabetes mellitus with hyperglycemia, with long-term current use of insulin ([facility]); Hypothyroidism, unspecified type 12/05/2024 11:00 AM EDT Office Visit [facility] [address] [place] [address] Justin Lopez ANP Neuropathy of left lower extremity (Primary Dx); Rhinitis, unspecified type; Demyelinating neuropathy; Type 2 diabetes mellitus with hyperlipidemia (CMS/HCC) (CMS/HCC); Depression, recurrent (CMS/HCC) 12/05/2024 Travel 11/30/2024 Orders Only GENERIC EXTERNAL DATA DEPARTMENT Provider, Generic External Data 11/30/[address] [phone] Justin Lopez ANP from Last 3 Months [...] Info) Description 01/20/2025 9:00 AM EDT Telemedicine [address] [address] 03/09/2025 2:30 PM EDT Office Visit [facility] [address] [place] [address] Justin Lopez, ANP [address] [place] [address] Health Maintenance Due Date Last Done Comments [...] 11/30/2024 8:48 AM EDT History of osteomyelitis BI MAMMOGRAM SCREENING TOMOSYNTHESIS BILATERAL Routine 09/21/2024 [...] Whole Blood 175(H) 60 - 115 mg/dL [facility] Comment:METER #: [id number] 5Testing performed in the Endocrinology Department [address] , [address], [facility]. 12/29/2024 1:15 PM EDT 12/29/2024 1:39 PM EDT us Generic External Data Provider LAB BLOOD ORDERAB LES Final Result [facility] [address] [place] [phone] * TSH with Reflex to Free T4 (12/16/2024 10:12 AM EDT) TSH reflex Free T4 1.44 0.32 - 4.0 uIU/mL [facility] 12/16/2024 10:1 2 AM EDT 12/16/2024 11:18 AM EDT Generic External Data Provider LAB BLOOD ORDERAB LES Final Result Performing Organization Address [facility] de Phone Number [facility] [address] [place] [phone] * Vitamin B12 (12/16/2024 10:12 AM EDT) Vitamin B12 437 200 - 900 pg/mL [facility] Comment:NORMAL 200-900 PG/ML INDETERMINATE 160-199 PG/ML DEFICIENT < 160 PG/ML 12/16/2024 10:1 2 AM EDT 12/16/2024 11:18 AM EDT Justin Lopez ANP LAB BLOOD ORDERABLES Final Resul t Performing Organization Address [facility] de Phone Number [facility] [address] [place] [phone] * Hepatic Function Panel (12/16/2024 10:12 AM EDT) Pathologist [facility] Bilirubin, Direct 0.1 0.0 - 0.5 mg/dL [facility] 12/16/2024 10:1 2 AM EDT 12/16/2024 11:18 AM EDT Justin Lopez ANP LAB BLOOD ORDERABLES Final Resul t Performing Organization Address [facility] de Phone Number [facility] [address] [place] [phone] * (ABNORMAL) Comprehensive Metabolic Panel (12/16/2024 10:12 AM EDT) Sodium 139 135 - 145 mmol/L [facility] Potassium 4.9 3.3 - 5.1 mmol/L [facility] Comment:Slight Hemolysis.Int erpret result with caution. Chloride 111(H) 96 - 108 mmol/L [facility] Carbon Dioxide 22 22 - 29 mmol/L [facility] Anion Gap 11(L) 12 - 20 [facility] Urea Nitrogen (BUN) 33(H) 9 - 16 mg/dL [facility] Creatinine, Serum 0.81 0.5 - 1.4 mg/dL [facility] Estimated Glomerular Filt Rate >60 [facility] Comment:Chronic Kidney Disea se: Estimated GFR < 60 mL/min/1.87v8Ecqpdf Kidney Disease: Estimated GFR < 15 mL/min/1.73m2 Glucose 142(H) 60 - 115 mg/dL [facility] Calcium 9.4 8.4 - 10.2 mg/dL [facility] Bilirubin, Total 0.4 0.0 - 1.0 mg/dL [facility] Aspartate Amino Transferase 28 5 - 31 U/L [facility] Comment:Slight Hemolysis.Int erpret result with caution. Alanine Aminotransferase 20 0 - 31 U/L [facility] Total Protein 7.4 6.5 - 8.0 g/dL [facility] Albumin Level 4.1 3.5 - 5.0 g/dL [facility] Alkaline Phosphatase 37(L) 39 - 117 U/L [facility] 12/16/2024 10:1 2 AM EDT 12/16/2024 11:18 AM EDT us Generic External Data Provider LAB BLOOD ORDERAB LES Final Result [facility] [address] [place] [phone] * US Pelvis Transvaginal (12/14/2024 10:55 AM EDT) Anatomical Region Laterality Modality Pelvis Ultrasound 12/14/2024 10:5 5 AM EDT Narrative 12/14/2024 2:11 PM EDT ? [facility] ?[address] ?[place] [address] ? Ultrasound Report ? Signed ? Patient: Osullivan Michele,Bozena N ?MR#: [id number] ?? [id number] ? : 1955 ?Acct:[id number] ? Age/Sex: 69 / F ?ADM Date: 12/14/24 ? Loc: HO.US ? Attending Dr: Arturo De León MD ? Ordering Physician: Arturo De León MD ?? Date of Service: 12/14/24 ?? Procedure(s): US pelvic and transvaginal ?? Accession Number(s): [id number] ? cc: JUSTIN LOPEZ NP; Arturo De [...] signed by Antoine Garay MD in OV> ?12/14/24 1408 ? DD/ ? TD/TT: 12/14/24 1124 ? Transport Company Manager: ? Procedure Note Donotuseinterpreter, Image - 12/14/2024 [place] [id number] Ultrasound Report Signed Patient: Bozena Gupta NMR#: [id number] : 6Acct:[id number] Age/Sex: 69 / FADM Date: 12/14/24 Loc: HO.US Attending Dr: Arturo De León MD Ordering Physician: Arturo De León MD Date of Service: 12/14/24 Procedure(s): US pelvic and transvaginal Accession Number(s): [id number] cc: JUSTIN LOPEZ NP; Arturo De León [...] 12/14/24 1408 DD/ 1055 TD/TT: 12/14/24 1124 Transport Company Manager: [facility] External Provider IMG US PROCEDURES Final Result * Creatinine, Random Urine (11/30/2024 8:48 AM EDT) Creatinine, Urine 73.79 mg/dL [facility] 11/30/2024 8:48 AM EDT 11/30/2024 2:07 PM EDT Generic External Data Provider LAB URINE ORDERAB LES Final Result Performing Organization Address City/[facility] Co de Phone Number [facility] [address] [place] [address] [phone] * (ABNORMAL) Sed Rate by Modified Melvaren (11/30/2024 8:48 AM EDT) Erythrocyte Sedimentation Rate 28(H) 0 - 20 MM/HR [facility] Comment:Patients with polycy themia and many hemoglobin abnormalitiesmay have depressed sed rates whereas patients with anemiamay have elevated sed rates. Blood Venous blood specimen / Unknown 11/30/2024 8:48 AM EDT 11/30/2024 2:17 PM EDT [facility] LAB BLOOD ORDERABLES Final Resul t Performing Organization Address [facility] Co de Phone Number [facility] [address] [place] [address] [phone] * C-reactive Protein (11/30/2024 8:48 AM EDT) C Reactive Protein 0.10 < or = 0.50 mg/dL [facility] Blood Venous blood specimen / Unknown 11/30/2024 8:48 AM EDT 11/30/2024 2:17 PM EDT us Justin [facility] LAB BLOOD ORDERABLES Final Resul t Performing Organization Address City/[facility]/ZIP Co de Phone Number [facility] [address] [place] [phone] * TSH (11/30/2024 8:48 AM EDT) Thyroid Stimulating Hormone 2.14 0.32 - 4.0 uIU/mL [facility] Comment:TSH 3rd Generation ( [facility]) 11/30/2024 8:48 AM EDT 11/30/2024 2:17 PM EDT [facility] External Data Provider LAB BLOOD ORDERAB LES Final Result Performing Organization Address City/[facility]/ZIP Co de Phone Number [facility] [address] [place] [phone] * (ABNORMAL) Hemoglobin A1c (11/30/2024 8:48 AM EDT) Hemoglobin A1c 7.4(H) <6.0 % [facility] Comment:Hemoglobin A1C Refer ence Range Adults: 4.8 - 6.0 % Non diabetic: < 6.0 % Goal: < 7.0 %Additional Action Suggested: > 8.0 %Note: Hemoglobin A1c results are invalid for patients with abnormal amounts of HbF. Blood transfusions may impact the HbA1c concentration in the patient sample. Estimated Average Glucose 166 mg/dL [facility] Comment:eAG = Estimated ave rage glucose which is %A1C expressed asaverage glucose, using the formula of the Q1Y-AwfdrckNbqvqex Glucose study (ADAG), Diabetes Care, Vol.31,#8,Apr. 2007 11/30/2024 8:48 AM EDT 11/30/2024 2:17 PM EDT Generic External Data Provider LAB BLOOD ORDERAB LES Final Result Performing Organization Address [facility] Co de Phone Number [facility] [address] [place] [phone] * (ABNORMAL) Lipid Panel, Standard (11/30/2024 8:48 AM EDT) Triglycerides 146 <150 mg/dL [facility] Comment:Desirable Triglyceri de: less than 150 mg/dLBorderline High Triglyceride 150-199 mg/dLHigh Triglyceride: 200-499 mg/dLVery High Triglyceride: greater than or equal to 5OO mg/dL Cholesterol 206(H) <200 mg/dL [facility] Comment:Desirable Cholestero l: less than 200 mg/dLBorderline High Cholesterol: 200-239 mg/dLHigh Cholesterol: greater than 239 mg/dL LDL Cholesterol Calculated 125(H) <100 mg/dL [facility] Comment:Desirable LDL: less than 100 mg/dLNear Optimal/Above Optimal LDL: 110- 129 mg/dLBorderline High LDL: 130-159 mg/dLHigh LDL: 160-189 mg/dLVery High LDL: greater than or equal to 190 mg/dL HDL Cholesterol 52 >40 mg/dL [facility] Comment:Desirable HDL: great er than 40 mg/dL Note: This HDL assay may give artificially low results in patients with liver disease. 11/30/2024 8:48 AM EDT 11/30/2024 2:17 PM EDT Generic External Data Provider LAB BLOOD ORDERAB LES Final Result Performing Organization Address City/[facility]/ZIP Co de Phone Number [facility] [address] [place] [phone] * BI Mammogram Screening Tomosynthesis Bilateral (09/21/2024 1:15 PM EST) Anatomical Region Laterality Modality Breast Bilateral Mammography 09/21/2024 1:15 PM EST Narrative 09/28/2024 8:33 AM EST ? [place] [facility] ? [address] ?[place] [address] ? Mammography Report ? Signed ? Patient: Osullivan Michele,Bozena N ?MR#: [id number] ?? [id number] ? : 1955 ?Acct:[id number] ? Age/Sex: 68 / F ?ADM Date: 09/21/24 ? Loc: HO.MAMMO ? Attending Dr: Justin Lopez GROUND LAYER ? Ordering Physician: JUSTIN LOPEZ NP ?Results: 2Benign Fin ?? dings ? Date of Service: 09/21/24 ?Follow Up: 1 Year From Orig ?? inal Mammogram ? Procedure(s): MM tomosynthesis screening BI ?? Accession Number(s): [id number] ? cc: JUSTIN LOPEZ NP ? EXAMINATION: [...] DD/ 1315 ? TD/TT: 09/21/24 1329 ? Transport Company Manager: ? Procedure Note Donotuseinterpreter, Image - 09/28/20[facility] [address] [place] [address] Mammography Report Signed Patient: Bozena Gupta NMR#: [id number] : 6Acct:[id number] Age/Sex: 68 / FADM Date: 09/21/24 Loc: ZEESHANO Attending Dr: Justin Lopez NP Ordering Physician: JUSTIN LOPEZesults: 2Babisai arce Date of Service: 09/21/24Follow Up: 1 Year From Orig inal Mammogram Procedure(s): MM tomosynthesis screening BI Accession Number(s): [id number] cc: JUSTIN LOPEZ NP EXAMINATION: MM SCREENING [...] 09/28/24 0830 DD/ 1315 TD/TT: 09/21/24 1329 Transport Company Manager: Justin Kimi BILLINGSLEY IMG BI PROCEDURES Final Result * Pap Smear (11/25/2021) Pap Negative for intraephithelial lesion or malignancy Negative for intraephithelial lesion or malignancy, Other HPV Undetected Historical Provider HEALTH MAINTENANCE Edited Result - Final from Last 3 Months or Most Recently Relevant to Health Maintenance Insurance [facility] Care Teams Memory Care Program Resident Relationship Specialty Start Date End Date Justin Lopez ANP [address] [place] [phone] PCP - General Family Medicine 10/10/21
--- OUTSIDE RECORDS SUMMARY | 2025-01-03 18:10 | XMS_ITS | Encounter Summary ---
Author Organization [email or web address] Address [address] [facility] 7t [place] [address] Care Team Providers Care Decorator Street And Building Name Role Phone Carin Bolden Primary Care Provider [phone] Reason for Visit * Reason Comments Med Refill Encounter Details Date Type Department Care Team (Late st Contact Info) Description 08/28/2023 Refill [facility] [address] [place], [place] [phone] Carin Bolden ANP [address] [place], [place] [phone] Subacute cough Social History Tobacco Use Types [...] Info) Description 01/20/2025 9:00 AM EDT Telemedicine [facility] [address] [place] [phone] 03/09/2025 2:30 PM EDT Office Visit [facility] [address] [place] [phone] Carin Bolden ANP [address] [place] [address] documented as of this encounter Visit Diagnoses Diagnosis Subacute cough documented in this encounter Additional Health Concerns Assessment Noted Time PHQ-9 Depression Total Score: 14 023 2:16 PM EDT documented as of this encounter Care Teams Decorator Street And Building Relationship Specialty Start Date End Date Carin Bolden ANP [address] [place] [phone] PCP - General Family Medicine 10/10/21 documented as of this encounter
--- OUTSIDE RECORDS SUMMARY | 2025-01-03 18:10 | XMS_ITS | Encounter Summary ---
Author Organization [employer] Address [address] [facility] [address] 7[address] [place] [address] Care Team Providers Care Assistant Women'S Soccer Coach Name Role Phone Kimi Carin BILLINGSLEY Primary Care Provider [phone] Encounter Details Date Type Department Care Team [...] Info) Description 01/20/2025 9:00 AM EDT Telemedicine [address] [address] 03/09/2025 2:30 PM EDT Office Visit [facility] [address] [place] [phone] Carin Bolden, JOSE CRUZ [address] [place] [address] documented as of this encounter Procedures Procedure Name Priority Date/Time Associated Diagnosis Comments GLUCOSE, WHOLE BLOOD Routine 12/29/2024 1:15 PM EDT documented in this encounter Results * (ABNORMAL) Glucose, Whole Blood (12/29/2024 1:15 PM EDT) Glucose, Whole Blood 175(H) 60 - 115 mg/dL [facility] Comment:METER #: [id number] 5Testing performed in the Endocrinology Department [address] , [address], [place]. 12/29/2024 1:15 PM EDT 12/29/2024 1:39 PM EDT us Generic External Data Provider LAB BLOOD ORDERAB LES Final Result [facility] [address] [place] [address] [phone] documented in this encounter Visit Diagnoses Not on filedocumented in this encounter Additional Health Concerns Assessment Noted Time PHQ-9 Depression Total Score: 14 025 1:36 PM EDT documented as of this encounter Care Teams Assistant Women'S Soccer Coach Relationship Specialty Start Date End Date Carin Bolden ANP [address] [place] [phone] PCP - General Family Medicine 10/10/21 documented as of this encounter
--- OUTSIDE RECORDS SUMMARY | 2025-01-03 18:10 | XMS_ITS | Encounter Summary ---
Author Organization [employer] [facility] Address [address] 7t [place] [address] Care Team Providers Care Cigar Binder Name Role Phone Carin Bolden Primary Care Provider [phone] Encounter Details Date Type Department Care Team (Late Contact Info) Description 08/11/2022 Abstract [facility] [address] [place] [address] [phone] Dental, Provider, DDS Social History Tobacco Use [...] Info) Description 01/20/2025 9:00 AM EDT Telemedicine [facility] [address] [place] [address] [phone] 03/09/2025 2:30 PM EDT Office Visit [address] [phone] Carin Bolden ANP 230 [place], [place] [phone] documented as of this encounter Procedures Procedure [...] on filedocumented in this encounter Care Teams Cigar Binder Relationship Specialty Start Date End Date Carin Bolden ANP [address] [place] [address] PCP - General Family Medicine 10/10/21 documented as of this encounter
--- OUTSIDE RECORDS SUMMARY | 2025-01-03 18:10 | XMS_ITS | Patient Health Record ---
Author Organization [facility] Address [address] [facility] [address] [place] [address] Care Team Providers Care Economic Geographer Name Role Phone [email or web address], DNF Primary Care Provider Unavailab Juliette Rodriguez Unavailable [phone] RANDAL [place] Unavailable Unavailable Migration, Provider Unavailable [...] Location Date Provider Diagnosis [facility] [address] [place] [address] [place] [address] 06/04/2024 Provider Migration Abdominal pain, epigastric R10.13 [...] Insured Coverage Start Date Coverage End Date [employer] [address] [address] [place] [address] [id number] VANESSA BARKER Self - patient is the [...]
== END 2025-01-03 15:32 | disposition home or self-care (01) ==
LOC: HO.HWS 15:16
PROVIDERS: PCP Nurse Practitioner Primary Care; Visit Provider Obstetrics & Gynecology
DX: D25.9 Leiomyoma of uterus, unspecified (principal)
CPT/HCPCS: 99213

== ENCOUNTER → 2025-01-03 15:16 | Outpatient (BNVA) | payer OTHER, SELFPAY | PROVIDERS: PCP Nurse Practitioner Primary Care; Visit Provider Obstetrics & Gynecology | DX: D25.9 Leiomyoma of uterus, unspecified (principal) | CPT/HCPCS: 99212 ==

== ENCOUNTER 2025-01-16 09:34 | Outpatient (REF) | payer OTHER, SELFPAY ==
--- OUTSIDE RECORDS SUMMARY | 2025-01-16 10:25 | XMS_ITS | Encounter Summary ---
Author Organization [employer] Address [address] [facility] 7t [place] [address] Care Team Providers Care Disposal Operator Name Role Phone Carin Bolden Primary Care Provider [phone] Reason for Visit * Reason Comments Med Refill Encounter Details Date Type Department Care Team (Late st Contact Info) Description 12/19/2024 Refill [facility] 230 [place], [place] [phone] Carin Bolden ANP 230 [place] [address] Social History Tobacco Use Types Packs/Day Years [...] Info) Description 01/20/2025 9:00 AM EDT Telemedicine [facility] [address] [place] [address] 03/09/2025 2:30 PM EDT Office Visit [facility] [address] [place] [address] Carin Bolden ANP 230 [place] [address] documented as of this encounter Visit Diagnoses Not on filedocumented in this encounter Additional Health Concerns Assessment Noted Time PHQ-9 Depression Total Score: 14 025 1:36 PM EDT documented as of this encounter Care Teams Disposal Operator Relationship Specialty Start Date End Date Carin Bolden ANP [address] [place] [address] PCP - General Family Medicine 10/10/21 documented as of this encounter
--- OUTSIDE RECORDS SUMMARY | 2025-01-16 10:25 | XMS_ITS | Encounter Summary ---
Author Organization [employer] Address [address] [facility] 7t [place] [address] Care Team Providers Care Profile Shaper Operator Name Role Phone Carin Bolden Primary Care Provider [phone] Encounter Details Date Type Department Care Team (Late st Contact Info) Description 07/22/2023 Abstract [facility] [address] [place] [address] Carin Bolden ANP 230 [place] [address] Social History Tobacco Use Types Packs/Day Years [...] 01/20/2025 9:00 AM EDT Telemedicine [facility] [address] [place] [address] 03/09/2025 2:30 PM EDT Office Visit [facility] [address] [place] [address] Carin Bolden ANP [address] [place] [address] documented as of this encounter Visit Diagnoses Not on filedocumented in this encounter Additional Health Concerns Assessment Noted Time PHQ-9 Depression Total Score: 14 023 2:16 PM EDT documented as of this encounter Care Teams Profile Shaper Operator Relationship Specialty Start Date End Date Carin Bolden ANP [address] [place] [address] PCP - General Family Medicine 10/10/21 documented as of this encounter
--- OUTSIDE RECORDS SUMMARY | 2025-01-16 10:25 | XMS_ITS | Encounter Summary ---
Author Organization [employer] [facility] [employer] Address [address] [facility] [address] 7[address] [place] [address] Care Team Providers Care Dry Cleaner Hand Name Role Phone Carin Bolden JOSE CRUZ Primary Care Provider [phone] Encounter Details Date Type Department Care Team (Late st Contact Info) Description 06/19/2023 Abstract [facility] 230 [place], [place] [phone] Loree Chan Social History Tobacco Use Types [...] 9:00 AM EDT Telemedicine [facility] [address] [place] [address] 03/09/2025 2:30 PM EDT Office Visit [address] [address] Cairn Bolden ANP 230 [place] [address] documented as of this encounter Procedures Procedure [...] documented as of this encounter Care Teams Dry Cleaner Hand Relationship Specialty Start Date End Date Carin Bolden ANP 230 [place] [address] PCP - General Family Medicine 10/10/21 documented as of this encounter
--- OUTSIDE RECORDS SUMMARY | 2025-01-16 10:25 | XMS_ITS | Encounter Summary ---
Author Organization [employer] Address [address] [facility] 7t [place] [address] Care Team Providers Care Maturity Checker Name Role Phone Carin Bolden Primary Care Provider [phone] Reason for Visit * Reason Comments Med Refill Encounter Details Date Type Department Care Team (Late st Contact Info) Description 02/19/2023 Refill [facility] [address] [place] [address] [phone] Valentina Escobedo MD [address] [place] [address] [phone] Social History Tobacco Use Types Packs/Day Years [...] Info) Description 01/20/2025 9:00 AM EDT Telemedicine [facility] [address] [place] [address] [phone] 03/09/2025 2:30 PM EDT Office Visit [facility] [address] [place] [address] [phone] Carin Bolden ANP 230 [place], [place] [phone] documented as of this encounter Visit Diagnoses Not on filedocumented in this encounter Care Teams Maturity Checker Relationship Specialty Start Date End Date Carin Bolden ANP 230 [place] [address] PCP - General Family Medicine 10/10/21 documented as of this encounter
--- OUTSIDE RECORDS SUMMARY | 2025-01-16 10:25 | XMS_ITS | Clinical Summary ---
Author Organization [facility] Address [address] [place] [address] Care Team Providers Care Lawn Mower Mechanic Name Role Phone Carin Bolden NP Primary Care Provider [phone] Allergies No known active allergies Medications aspirin [...] to the mid LAD in 2018 at [facility]. The patient had been reporting episodes [...] every night. Depression 05/09/2010 DM (diabetes mellitus) ([facility] V24, [facility] V28 ) 05/09/2010 HTN (hypertension) 05/09/2010 Overview [...] Type Department Care Team Description 12/20/2024 Telephone [facility] [address] [place] [address] Michelle Arellano NP Med Refill (Entresto 97-103 refill ) 12/19/2024 Telephone [facility] [address] [facility] [address] [place] [address] Blessign Chanma CO Medication from Last 3 Months Surgical History Surgery [...] History Medical History Date Comments Diabetes mellitus ([facility] V24, [facility] V28) DX:Diabetes mellitus (HCC) JEVON (obstructive sleep [...] Description 02/15/2025 2:00 PM EDT Office Visit [facility] [address] [place] [address] Dr [address] [place] [address] Rob Melendez MD [address] [place] [address] Dr [address] [place] [address] Health Maintenance Due Date Last Done Comments [...] Urine Albumin-Creatinine Ratio (uACR) 08/24/2022 COVID-19 Vaccine ( season) 2024 10/20/2023, 08/09/2022, 02/11/2022 Diabetes: Blood Sugar Control [...] 9:28 AM EST from Last 3 Months or Most Recently Relevant to Health Maintenance Results * (ABNORMAL) Lipid panel (10/18/2024 8:03 [...] PM EST Performed at: ??01 - [facility] [address] ??[id number] Salvage Diver: Kelley Hughes MD, Phone: ??[phone] Michelle Arellano NP LAB BLOOD ORDERABLES Final [...] AM EST Performed at: ??01 - [facility] [address] ??[id number] Salvage Diver: Kelley Hughes MD, Phone: ??[phone] Michelle Arellano NP LAB BLOOD ORDERABLES Final Result [facility] 1 from Last 3 Months or Most Recently Relevant to Health [place] [phone] [facility] MEDICARE Member Subscriber Plan / Payer (Ef fective 2024-Present) Name:Bozena Osullivan Relation to Subscriber:Self Name:Bozena Osullivan Payer ID:[id number] Group ID:Not on file Type:Not on file Address: [place] [address] [phone] Care Teams Lawn Mower Mechanic Relationship Specialty Start Date End Date Carin Bolden NP [address] [place] [address] [place]IE [place]ONZALEZ [phone] PCP - General 11/07/21
--- OUTSIDE RECORDS SUMMARY | 2025-01-16 10:25 | XMS_ITS | Encounter Summary ---
Author Organization [employer] Address [address] [facility] 7t [place] [address] Care Team Providers Care Retail Pharmacy Technician Name Role Phone Carin Bolden Primary Care Provider [phone] Reason for Visit * Reason Comments Med Refill Encounter Details Date Type Department Care Team ([facility] st Contact Info) Description 07/06/2024 Refill [facility] 230 [place], [place] [phone] Carin Bolden ANP 230 [place] [address] Social History Tobacco Use Types Packs/Day Years [...] 01/20/2025 9:00 AM EDT Telemedicine [facility] [address] [place] [address] 03/09/2025 2:30 PM EDT Office Visit [facility] [address] [place] [address] Carin Bolden ANP 230 [place] [address] documented as of this encounter Visit Diagnoses Not on filedocumented in this encounter Additional Health Concerns Assessment Noted Time PHQ-9 Depression Total Score: 8 02/26/20 24 10:46 AM EDT documented as of this encounter Care Teams Retail Pharmacy Technician Relationship Specialty Start Date End Date Carin Bolden ANP [address] [place] [address] PCP - General Family Medicine 10/10/21 documented as of this encounter
--- OUTSIDE RECORDS SUMMARY | 2025-01-16 10:25 | XMS_ITS | Encounter Summary ---
Author Organization [employer] Address [address] [facility] 7t [place] [address] Care Team Providers Care Steam Clean Machine Operator Name Role Phone Carin Bolden Primary Care Provider [phone] Reason for Visit * Reason Comments Med Refill Encounter Details Date Type Department Care Team (Late st Contact Info) Description 08/28/[address] [facility] 230 [place], [place] [phone] Carin Bolden ANP 230 [place], [place] [phone] Subacute cough Social History Tobacco Use Types [...] Description 01/20/2025 9:00 AM EDT Telemedicine [facility] MED[facility]INE [address] [place] [address] 03/09/2025 2:30 PM EDT Office Visit [facility] [address] [place] [address] Carin Bolden ANP 230 [place] [address] documented as of this encounter Visit Diagnoses Diagnosis Subacute cough documented in this encounter Additional Health Concerns Assessment Noted Time PHQ-9 Depression Total Score: 14 023 2:16 PM EDT documented as of this encounter Care Teams Steam Clean Machine Operator Relationship Specialty Start Date End Date Carin Bolden ANP [address] [place] [address] PCP - General Family Medicine 10/10/21 documented as of this encounter
--- OUTSIDE RECORDS SUMMARY | 2025-01-16 10:26 | XMS_ITS | Encounter Summary ---
Author Organization [employer] [facility] Address [address] [facility] 7t [place] [address] Care Team Providers Care Miter Operator Name Role Phone Carin Bolden Primary Care Provider [phone] Encounter Details Date Type Department Care Team (Latest Contact Info) Description 02/17/[address] [facility] CONVERSIONS Dental, Provider, DDS Social History [...] 9:00 AM EDT Telemedicine [facility] MEDICINE [address] [place] [address] 03/09/2025 2:30 PM EDT Office Visit [facility] 230 [place] [address] Carin Bolden ANP 230 [place] [address] documented as of this encounter Visit Diagnoses Not on filedocumented in this encounter Care Teams Miter Operator Relationship Specialty Start Date End Date Carin Bolden ANP 230 [place] [address] PCP - General Family Medicine 10/10/21 documented as of this encounter
--- OUTSIDE RECORDS SUMMARY | 2025-01-16 10:26 | XMS_ITS | Encounter Summary ---
Author Organization [employer] Address [address] [facility] [address] 7t [place] [address] Care Team Providers Care Senior Restaurant Manager Name Role Phone Carin Bolden JOSE CRUZ Primary Care Provider [phone] Reason for Visit * Reason Comments Med Refill Encounter Details Date Type Department Care Team ([facility] st Contact Info) Description 08/16/2024 Refill [facility] [address] [place], [place] [phone] Lori Bee MD 230 [place] [address] Carpal tunnel syndrome, unspecified laterality Social History [...] Info) Description 01/20/2025 9:00 AM EDT Telemedicine [facility] [address] [place] [address] 03/09/2025 2:30 PM EDT Office Visit [facility] [address] [place] [address] Carin Bolden ANP [address] [place] [address] documented as of this encounter Visit Diagnoses Diagnosis Carpal tunnel syndrome, unspecified laterality documented in this encounter Additional Health Concerns Assessment Noted Time PHQ-9 Depression Total Score: 8 02/26/20 24 10:46 AM EDT documented as of this encounter Care Teams Senior Restaurant Manager Relationship Specialty Start Date End Date Carin Bolden ANP [address] [place] [address] PCP - General Family Medicine 10/10/21 documented as of this encounter
--- OUTSIDE RECORDS SUMMARY | 2025-01-16 10:26 | XMS_ITS | Clinical Summary ---
Author Organization [employer] Address [address] [place] [address] Care Team Providers Care Graphic Artist Name Role Phone Justin Lopez JOSE CRUZ Primary Care Provider [phone] Allergies No known active allergies Medications * [...] Type 2 diabetes mellitus with hyperlipidemia (CMS/HCC) ([facility]) TEST BLOOD SUGAR THREE TIMES DAILY 100 each 5 024 Active NovoLOG FLEXPEN 100 UNIT/ML penIndications:T ype 2 diabetes mellitus with hyperlipidemia (CMS/HCC) (CMS/[facility]) INJECT 20 UNITS SUBCUTANEOUSLY BEFORE MEALS if BG 200+ PER prescriber's instructions. INJECT 30 UNITS if BG 300+ DIRECTED 60 mL Active Alcohol Swabs (Alcohol Prep) 70 % padsIndications: Type 2 diabetes mellitus with hyperglycemia, with long-term current use of insulin (CMS/[facility]) USE ONCE DAILY 100 each Active FREESTYLE LITE test stripIndications :Type 2 diabetes mellitus with diabetic polyneuropathy, with long-term current use of insulin (CMS/[facility]) TEST BLOOD SUGAR THREE TIMES DAILY DIRECTED 100 strip Active insulin pen needle (Easy Touch Pen [place]) 31G x 6 mm miscIndications: Type 2 diabetes mellitus with diabetic polyneuropathy, with long-term current use of insulin (CMS/HCC) USE THREE DAILY 100 each Active Multiple [...] OT Active Blood Glucose Monitoring Suppl (FreeStyle [place] Lite) w/Device kit Use to test blood sugar TID dx dm 1 kit Active Aspirin Adult Low Strength 81 MG EC tabletIndication s:Type 2 diabetes mellitus with hyperglycemia, with long-term current use of insulin (CMS/[facility]) TAKE ONE TABLET EVERY MORNING 90 tablet 3 Active levothyroxine (Synthroid, Levoxyl) 137 MCG tabletIndication [...] 025 Active cetirizine (ZyrTEC) 10 MG tabletIndication s:Rhinitis, unspecified type Take 1 tablet (10 mg) by mouth if needed each day for allergies. Take once daily as needed 30 tablet 1 025 Active albuterol 108 (90 Base) MCG/ACT inhalerIndicatio ns:Subacute cough Inhale 2 puffs every 6 (six) hours if needed for wheezing or shortness of breath. 18 g 1 024 2024 Discontinued metFORMIN XR (Glucophage-XR) 500 [...] PEN (=10MG) SUBCUTANEOUSLY ONCE A WEEK DIRECTED 2024 Discontinued cetirizine (ZyrTEC) 10 MG tabletIndication s:Rhinitis, unspecified type Take once daily as needed 30 tablet 025 2024 Discontinued rosuvastatin (Crestor) 40 MG tablet Take 1 [...] polypectomy versus endometrial biopsy On: TBD By: STATE PILOT Anesthesia: General After careful review of patient's [...] 9:29 AM EST): Under the care of Flower Machine Operator Rob Thomason. Last seen 04/2023. Last ECHO [...] Coronary artery disease 08/17/2023 08/17/20 Overview (02/10/2024): Flower Machine Operator Dr. Thomason Baseline ECG: SR, possible prior [...] % at stress. GERD (gastroesophageal reflux disease) 08/17/2023 Inguinal lymphadenopathy 08/17/2023 023 Neuropathy 08/17/2023 [...] of insulin 06/03/2012 08/17/2023 Overview (02/10/2024): [facility] Metformin XR 500mg 2 tabs AM/PM Lantus 30 units daily NovoLog 30 units before meals (we have this as 20 units unless BG 300+) Jardiance 25mg mounjaro 7.5mg weekly (plan to increase to 10mg Spring 2023) On statin, ASA (pt has known CAD), ARB (entresto) Hypertension 06/03/2012 Assessment & Plan (11/19/2023 9:30 AM EST): Pt on Carvedilol once daily ( as per Flower Machine Operator) Once cleared by Cardiology the instruction is [...] organization. Date Type Department Care Team Description 01/05/2025 Refill [facility] [address] [place] [address] Justin Lopez ANP Rhinitis, unspecified type 12/29/2024 Orders Only GENERIC EXTERNAL DATA DEPARTMENT Provider, Generic External Data 12/20/2024 Refill [facility] PEDS [address] [place] [address] Justin Lopez ANP 12/19/2024 Refill [facility] [address] [place] [phone] Justin Lopez ANP 12/19/2024 Refill [facility] PEDS [address] [place] [address] Justin Lopez ANP Diabetic polyneuropathy associated with type 2 diabetes mellitus ([facility]/HCC) (Primary Dx); Rhinitis, unspecified type; Heart failure with reduced ejection fraction (CMS/HCC) 12/16/2024 Orders Only [facility] [address] [place] [phone] Justin Lopez ANP 12/16/2024 Travel 12/09/2024 Refill [facility] [address] [place] [phone] Justin Lopez ANP Type 2 diabetes mellitus with hyperglycemia, with long-term current use of insulin ([facility]); Hypothyroidism, unspecified type 12/05/2024 11:00 AM EDT Office Visit [facility] [address] [place] [phone] Justin Lopez ANP Neuropathy of left lower extremity (Primary Dx); Rhinitis, unspecified type; Demyelinating neuropathy; Type 2 diabetes mellitus with hyperlipidemia (CMS/HCC) (CMS/HCC); Depression, recurrent (CMS/HCC) 12/05/2024 Travel 11/30/2024 Orders Only GENERIC EXTERNAL DATA DEPARTMENT Provider, Generic External Data 11/30/2024 Telephone [facility] [address] [place] [phone] Justin Lopez ANP from Last 3 Months [...] Info) Description 01/20/2025 9:00 AM EDT Telemedicine [facility] [address] [place] [phone] 03/09/2025 2:30 PM EDT Office Visit [facility] [address] [place] [phone] Justin Lopez, ANP [address] [place] [phone] Health Maintenance Due Date Last Done Comments [...] Additional history exists SDOH Screening 03/08/2025 03/08/2024 Mammogram 09/21/2025 09/21/2024, 04/2025, 09/18/2023, Additional history [...] Whole Blood 175(H) 60 - 115 mg/dL [facility] Comment:METER #: [id number] 5Testing performed in the Endocrinology Department [address] , [address], [facility]. 12/29/2024 1:15 PM EDT 12/29/2024 1:39 PM EDT Generic External Data Provider LAB BLOOD ORDERAB LES Final Result Performing Organization Address City/[facility]/ZIP Co de Phone Number [facility] [address] [place] [phone] * TSH with Reflex to Free T4 (12/16/2024 10:12 AM EDT) Pathologist [facility] TSH reflex Free T4 1.44 0.32 - 4.0 uIU/mL [facility] 12/16/2024 10:1 2 AM EDT 12/16/2024 11:18 AM EDT us Generic External Data Provider LAB BLOOD ORDERAB LES Final Result Performing Organization Address City/[facility]/ZIP Co de Phone Number [facility] [address] [place] [phone] * Vitamin B12 (12/16/2024 10:12 AM EDT) Vitamin B12 437 200 - 900 pg/mL [facility] Comment:NORMAL 200-900 PG/ML INDETERMINATE 160-199 PG/ML DEFICIENT < 160 PG/ML 12/16/2024 10:1 2 AM EDT 12/16/2024 11:[address] [facility] LAB BLOOD ORDERABLES Final Resul t Performing Organization Address [facility] de Phone Number [facility] [address] [place] [phone] * Hepatic Function Panel (12/16/2024 10:12 AM EDT) Bilirubin, Direct 0.1 0.0 - 0.5 mg/dL [facility] 12/16/2024 10:1 2 AM EDT 12/16/2024 11:18 AM EDT Justin Lopez [facility] LAB BLOOD ORDERABLES Final Resul t Performing Organization Address [facility] Phone Number [facility] [address] [place] [phone] * (ABNORMAL) Comprehensive Metabolic Panel (12/16/2024 10:12 AM EDT) Sodium 139 135 - 145 mmol/L [facility] Potassium 4.9 3.3 - 5.1 mmol/L [facility] Comment:Slight Hemolysis.Int erpret result with caution. Chloride 111(H) 96 - 108 mmol/L [facility] Carbon Dioxide 22 22 - 29 mmol/L [facility] Anion Gap 11(L) 12 - 20 [facility] Urea Nitrogen (BUN) 33(H) 9 - 16 mg/dL [facility] Creatinine, Serum 0.81 0.5 - 1.4 mg/dL [facility] Estimated Glomerular Filt Rate >60 [facility] Comment:Chronic Kidney Disea se: Estimated GFR < 60 mL/min/1.64l6Hpqlly Kidney Disease: Estimated GFR < 15 mL/min/1.73m2 Glucose 142(H) 60 - 115 mg/dL [facility] Calcium 9.4 8.4 - 10.2 mg/dL [facility] Bilirubin, Total 0.4 0.0 - 1.0 mg/dL [facility] Aspartate Amino Transferase 28 5 - 31 U/L [facility] Comment:Slight Hemolysis.Int erpret result with caution. Alanine Aminotransferase 20 0 - 31 U/L [facility] Total Protein 7.4 6.5 - 8.0 g/dL [facility] Albumin Level 4.1 3.5 - 5.0 g/dL [facility] Alkaline Phosphatase 37(L) 39 - 117 U/L [facility] 12/16/2024 10:1 2 AM EDT 12/16/2024 11:18 AM EDT us Generic External Data Provider LAB BLOOD ORDERAB LES Final Result Performing Organization Address City/State/[facility] Co de Phone Number [facility] [address] [place] [phone] * US Pelvis Transvaginal (12/14/2024 10:55 AM EDT) Anatomical Region Laterality Modality Pelvis Ultrasound 12/14/2024 10:5 5 AM EDT Narrative 12/14/2024 2:11 PM EDT ? [facility] ?[address] ?[place] [address] ? Ultrasound Report ? Signed ? Patient: Shi MicheleBozena N ?MR#: [id number] ?? [id number] ? : 1955 ?Acct:[id number] ? Age/Sex: 69 / F ?ADM Date: 12/14/24 ? Loc: HO.US ? Attending Dr: Arturo De León MD ? Ordering Physician: Arturo De León MD ?? Date of Service: 04/02/25 ?? Procedure(s): US pelvic and transvaginal ?? Accession Number(s): [id number] ? cc: JUSTIN LOPEZ NP; Arturo De [...] MD in OV> ?12/14/24 1408 ? DD/ 1055 ? TD/TT: 12/14/24 1124 ? Bullet Lubricant Mixer: ? Procedure Note Judy, Image - 12/14/[address] [address] Ultrasound Report Signed Patient: Bozena Gupta [facility]#: [id number] : 6Acct:[id number] Age/Sex: 69 / FADM Date: 12/14/24 Loc: HO. Attending Dr: Arturo De León MD Ordering Physician: Arturo De León MD Date of Service: 12/14/24 Procedure(s): US pelvic and transvaginal Accession Number(s): [id number] cc: JUSTIN LOPEZ NP; Arturo De León [...] 12/14/24 1408 DD/ 1055 TD/TT: 12/14/24 1124 Bullet Lubricant Mixer: us [facility] External Provider IMG US PROCEDURES Final Result * Creatinine, Random Urine (11/30/2024 8:48 AM EDT) Creatinine, Urine 73.79 mg/dL [facility] 11/30/2024 8:48 AM EDT 11/30/2024 2:07 PM EDT Generic External Data Provider LAB URINE ORDERAB LES Final Result Performing Organization Address [facility] de Phone Number [facility] [address] [place] [phone] * (ABNORMAL) Sed Rate by Modified Ehergren (11/30/2024 8:48 AM EDT) Erythrocyte Sedimentation Rate 28(H) 0 - 20 MM/HR [facility] Comment:Patients with polycy themia and many hemoglobin abnormalitiesmay have depressed sed rates whereas patients with anemiamay have elevated sed rates. Blood Venous blood specimen / Unknown 11/30/2024 8:48 AM EDT 11/30/2024 2:17 PM EDT Justin Lopez ANP LAB BLOOD ORDERABLES Final Resul t Performing Organization Address [facility] de Phone Number [facility] [address] [place] [phone] * C-reactive Protein (11/30/2024 8:48 AM EDT) C Reactive Protein 0.10 < or = 0.50 mg/dL [facility] Blood Venous blood specimen / Unknown 11/30/2024 8:48 AM EDT 11/30/2024 2:17 PM EDT Justin Lopez ANP LAB BLOOD ORDERABLES Final Resul t Performing Organization Address [facility] de Phone Number [facility] [address] [place] [phone] * TSH (11/30/2024 8:48 AM EDT) Thyroid Stimulating Hormone 2.14 0.32 - 4.0 uIU/mL [facility] Comment:TSH 3rd Generation ( [facility]) 11/30/2024 8:48 AM EDT 11/30/2024 2:17 PM EDT us Generic External Data Provider LAB BLOOD ORDERAB LES Final Result Performing Organization Address [facility] Co de Phone Number [facility] [address] [place] [phone] * (ABNORMAL) Hemoglobin A1c (11/30/2024 8:48 AM EDT) Hemoglobin A1c 7.4(H) <6.0 % [facility] Comment:Hemoglobin A1C Refer ence Range Adults: 4.8 - 6.0 % Non diabetic: < 6.0 % Goal: < 7.0 %Additional Action Suggested: > 8.0 %Note: Hemoglobin A1c results are invalid for patients with abnormal amounts of HbF. Blood transfusions may impact the HbA1c concentration in the patient sample. Estimated Average Glucose 166 mg/dL [facility] Comment:eAG = Estimated ave rage glucose which is %A1C expressed asaverage glucose, using the formula of the K5M-CdshwukLqbozxg Glucose study (ADAG), Diabetes Care, Vol.31,#8,Apr. 2007 11/30/2024 8:48 AM EDT 11/30/2024 2:17 PM EDT Generic External Data Provider LAB BLOOD ORDERAB LES Final Result Performing Organization Address [facility] Co de Phone Number [facility] [address] [place] [phone] * (ABNORMAL) Lipid Panel, Standard (11/30/2024 8:48 AM EDT) Triglycerides 146 <150 mg/dL [facility] Comment:Desirable Triglyceri de: less than 150 mg/dLBorderline High Triglyceride 150-199 mg/dLHigh Triglyceride: 200-499 mg/dLVery High Triglyceride: greater than or equal to 5OO mg/dL Cholesterol 206(H) <200 mg/dL [facility] Comment:Desirable Cholestero l: less than 200 mg/dLBorderline High Cholesterol: 200-239 mg/dLHigh Cholesterol: greater than 239 mg/dL LDL Cholesterol Calculated 125(H) <100 mg/dL [facility] Comment:Desirable LDL: less than 100 mg/dLNear Optimal/Above Optimal LDL: 110- 129 mg/dLBorderline High LDL: 130-159 mg/dLHigh LDL: 160-189 mg/dLVery High LDL: greater than or equal to 190 mg/dL HDL Cholesterol 52 >40 mg/dL [facility] Comment:Desirable HDL: great er than 40 mg/dL Note: This HDL assay may give artificially low results in patients with liver disease. 11/30/2024 8:48 AM EDT 11/30/2024 2:17 PM EDT us Generic External Data Provider LAB BLOOD ORDERAB LES Final Result [facility] [address] [place] [phone] * BI Mammogram Screening Tomosynthesis Bilateral (09/21/2024 1:15 PM EST) Anatomical Region Laterality Modality Breast Bilateral Mammography 09/21/2024 1:15 PM EST Narrative 09/28/2024 8:33 AM EST ? [facility] ? [address] ?[place] [address] ? Mammography Report ? Signed ? Patient: Osullivan Michele,Bozena N ?MR#: [id number] ?? [id number] ? : 1955 ?Acct:[id number] ? Age/Sex: 68 / F ?ADM Date: 01/08/25 ? Loc: HO.MAMMO ? Attending : Justin Lopez BUSINESS PROJECT MANAGER ? Ordering Physician: JUSTIN LOPEZ NP ?Results: 2Benign Fin ?? dings ? Date of Service: 09/21/24 ?Follow Up: 1 Year From Orig ?? inal Mammogram ? Procedure(s): MM tomosynthesis screening BI ?? Accession Number(s): [id number] ? cc: JOHN,JUSTIN NARANJO ? EXAMINATION: ?? [...] DD/ 1315 ? TD/TT: 09/21/24 1329 ? Bullet Lubricant Mixer: ? Procedure Note Donotuseinterpreter, Image - 09/28/2024 [facility] [address] [place], [place] [address] Mammography Report Signed Patient: Bozena Gupta [facility]#: [id number] : 6Acct:[id number] Age/Sex: 68 / FADM Date: 09/21/24 Loc: HO.MAMMO Attending Dr: Justin Lopez NP Ordering Physician: JUSTIN LOPEZ NPResults: 2Benign Wilian arce Date of Service: 09/21/24Follow Up: 1 Year From Orig inal Mammogram Procedure(s): MM tomosynthesis screening BI Accession Number(s): [id number] cc: JUSTIN LOPEZ NP EXAMINATION: MM SCREENING [...] by: Izabel Suarez DO 09/28/2024 08:30 AM [facility] Dictated By: Izabel Suarez DO Signed By: <Electronically signed by Izabel Suarez DO in OV> 09/28/24 0830 DD/ 1315 TD/TT: 09/21/24 1329 Bullet Lubricant Mixer: Justin Lopez ANP IMG BI PROCEDURES Final Result * Hm Pap Smear (11/25/2021) Pap Negative for intraephithelial lesion or malignancy Negative for intraephithelial lesion or malignancy, Other HPV Undetected us Historical Provider HEALTH MAINTENANCE Edited Result - Final from Last 3 Months or Most Recently Relevant to Health Maintenance Insurance [facility] (O D-SNP) RAINER MARCOS [id number] Care Teams Graphic Artist Relationship Specialty Start Date End Date Justin Lopez ANP [address] [place] [phone] PCP - General Family Medicine 10/10/21
--- OUTSIDE RECORDS SUMMARY | 2025-01-16 10:26 | XMS_ITS ---
Author Organization [facility] Address [address] [place] [address] Care Team Providers Care Cylinder Handler Name Role Phone [email or web address], DNF Primary Care Provider Unavailab Juliette Rodriguez Unavailable [phone] RANDAL [place] Unavailable Unavailable Migration, Provider Unavailable Unavailable REASON FOR VISIT [facility] Conversion Encounter Medications Medication SIG (Take, [...] Date Provider Diagnosis [facility] [address] [place] [address] 06/04/2024 Provider Migration Abdominal pain, epigastric R10.13 [...] * VANESSA BARKER NDOB:1955 (69 yo F)Acc No.[id number]:06/04/2024 Patient:?VANESSA BARKER N Provider:? :1955???Age:68 Y???Sex:Female D ate:06/04/2024 Address:[address] [place] [id number] Pcp:DEANA Manriquez Subjective: * Chief Complaints: * ???1. [facility] Con version Encounter. * Medical History:? [...] Electronic signature of Prov ider Migration on 01/16/2025 at 10:25 AM EDT Sign off status: Pending * Provider:? Date:?06/04/2024 Generated for Remy gannon/Alyse/Maximilianoitting on:?01/16/2025 10:25 AM EDT
--- OUTSIDE RECORDS SUMMARY | 2025-01-16 10:26 | XMS_ITS | Encounter Summary ---
Author Organization [facility] Address [address] [place] [address] Care Team Providers Care Hardware Installation Coordinator Name Role Phone Carin Bolden Primary Care Provider [phone] Encounter Details Date Type Department Care Team (Late Contact Info) Description 08/11/2022 Abstract [facility] [address] [place] [address] [phone] Dental, Provider, DDS Social History Tobacco Use [...] Description 01/20/2025 9:00 AM EDT Telemedicine [facility] [address] [place] [address] [phone] 03/09/2025 2:30 PM EDT Office Visit [address] [phone] Carin Bolden ANP [address] [place], [place] [phone] documented as of this encounter Procedures Procedure [...] on filedocumented in this encounter Care Teams Hardware Installation Coordinator Relationship Specialty Start Date End Date Carin Bolden ANP [address] [place] [phone] PCP - General Family Medicine 10/10/21 documented as of this encounter
[2025-01-16 11:11] LABS: Anion Gap 12 (12-20); Blood Urea Nitrogen 29 mg/dL (9-16); Calcium 9.7 mg/dL (8.4-10.2); Carbon Dioxide 26 mmol/L (22-29); Chloride 105 mmol/L (96-108); Cholesterol 125 mg/dL (<200); Estimated Glomerular Filt Rate > 60; Glucose Fasting 159 mg/dL (60-99); Potassium 4.7 mmol/L (3.3-5.1); Sodium 138 mmol/L (135-145); Triglycerides 122 mg/dL (<150)
[2025-01-16 11:20] LABS: Creatinine Urine 59.94 mg/dL; Microalbum/Creatinine Ratio Ur 221.8 ug/mg cr (<30)
[2025-01-16 11:48] LABS: HDL Cholesterol 44 mg/dL (>40); LDL Cholesterol Calculated 57 mg/dL (<100)
== END 2025-01-16 09:35 | disposition home or self-care (01) ==
LOC: HO.LAB 09:34
PROVIDERS: PCP Nurse Practitioner Primary Care; Visit Provider Nurse Practitioner Adult Health
DX: E11.9 Type 2 diabetes mellitus without complications (principal)
CPT/HCPCS: 36415; 80048; 80061; 82043; 82570

== ENCOUNTER 2025-01-19 12:53 | Outpatient (AMB) | payer OTHER, SELFPAY ==
--- NOTE | 2025-01-19 13:33 | MHC.AMDMED ---
Intake Intake Visit Reasons: dm Erp Specialist Required: Yes Erp Specialist Language: Guest Service Team Leader Name: Savannah Foote Accompanied by: Self / Same As Patient Allergies No Known Allergies Allergy (Verified 01/03/25 15:20) HPI Comprehensive Diabetes Asmnt Most Recent Diabetes Results: Microalb/Creat Ratio 221.8 ug/mg cr (<30) H 01/16/25 Cholesterol 125 mg/dL (<200) 01/16/25 HDL Cholesterol 44 mg/dL (>40) 01/16/25 Triglycerides 122 mg/dL (<150) 01/16/25 Creatinine 0.86 mg/dL (0.5-1.4) 01/16/25 Blood Urea Nitrogen 29 mg/dL (9-16) H 01/16/25 Sodium 138 mmol/L (135-145) 01/16/25 Potassium 4.7 mmol/L (3.3-5.1) 01/16/25 Chloride 105 mmol/L (96-108) 01/16/25 Carbon Dioxide 26 mmol/L (22-29) 01/16/25 Calcium 9.7 mg/dL (8.4-10.2) 01/16/25 AST 28 U/L (5-31) 12/16/24 ALT 20 U/L (0-31) 12/16/24 Total Protein 7.4 g/dL (6.5-8.0) 12/16/24 Albumin 4.1 g/dL (3.5-5.0) 12/16/24 PFSH Medical History Vertigo Cervicalgia Restless legs syndrome (RLS) Neuropathy Palpitations CAD (coronary artery disease) Depression High cholesterol Celiac disease HTN (hypertension) Hypothyroid Insulin dependent type 1 diabetes mellitus Surgical History H/O bilateral breast reduction surgery History of carpal tunnel release of both wrists History of section H/O abdominoplasty Hx of colonoscopy History of arthroplasty of left knee H/O heart artery stent Family History Mother Diabetes High blood pressure Father Diabetes High blood pressure Paternal Aunt Bone cancer Sister Breast cancer Sister Lymph node cancer Social History Household Members: None Housing: Apartment Are you a primary overnight caregiver to a significant other at home: No Do you presently have visiting nurse or other home services: No Alcohol intake: never Patient Tobacco Use Status: Never used Tobacco service: No Current occupational status: disabled Assessment & Plan Assessment & Plan (1) Type 2 diabetes mellitus: Code(s): E11.9 - Type 2 diabetes mellitus without complications Plan: Personal Continuous Glucose Monitor: Patients CGM information reviewed, Patient's last A1c on 11/30/2024 7.4%, improved from A1c in July 2024 of 7.9% Patient's highest glucose pattern is in late afternoon. And suggested to patient that she increase physical activity after mid day meal or decreased portion of carbohydrates for mid day meal Reviewed with patient carbohydrate list and portion size Typical [place] Citizen foods carb list was given along with healthy plate carb lists Patient reported she will work on carb portions and increasing physical activity to help bring numbers into target levels Patient able to insert sensor independently at home without issue.? Portions of this note were created using voice recognition software, please excuse any words or phrases that may have been misinterpreted. Patient Instructions: Follow-up with Diabetes Education nurse after next A1c in 4 months Coding Level of Care Code Est Pt Level 1 (85232) Diagnoses Type 2 diabetes mellitus E11.9
--- OUTSIDE RECORDS SUMMARY | 2025-01-19 13:57 | XMS_ITS ---
Author Organization [facility] Address [address] [place] [address] Care Team Providers Care Evaluation Analyst Name Role Phone [email or web address], DNF Primary Care Provider Unavailab Juliette Rodriguez Unavailable [phone] RANDAL [place] Unavailable Unavailable Migration, Provider Unavailable Unavailable REASON FOR VISIT [facility] To [facility] Conversion Encounter Medications Medication SIG (Take, [...] [facility] [address] [place] [address] 06/04/2024 Provider Migration Abdominal pain, epigastric R10.13 [...] * VANESSA BARKER NDOB:1955 (69 yo F)Acc No.[id number]:06/04/2024 Patient:?VANESSA BARKER N Provider:? :1955???Age:68 Y???Sex:Female D ate:06/04/2024 Address:[address] [place] [id number] Pcp:DEANA Manriquez Subjective: * Chief Complaints: * ???1. [facility] To [facility] Con version Encounter. * Medical History:? [...] Electronic signature of Prov ider Migration on 01/19/2025 at 01:57 PM EDT Sign off status: Pending * Provider:? Date:?06/04/2024 Generated for Remy gannon/Alyse/Maximilianoitting on:?01/19/2025 01:57 PM EDT
--- OUTSIDE RECORDS SUMMARY | 2025-01-19 13:57 | XMS_ITS | Patient Health Record ---
Author Organization [facility] Address [address] [facility] [address] [place] [address] Care Team Providers Care Shoe Dyer Name Role Phone [email or web address], DNF Primary Care Provider Unavailab Juliette Rodriguez Unavailable [phone] RANDAL [place] Unavailable Unavailable Migration, Provider Unavailable [...] Location Date Provider Diagnosis [facility] [address] [place] [address] 06/04/2024 Provider Migration Abdominal pain, epigastric R10.13 [...] Insured Coverage Start Date Coverage End Date [employer] [address] [address] [place] [address] [id number] VANESSA BARKER Self - patient is the [...]
--- OUTSIDE RECORDS SUMMARY | 2025-01-19 13:57 | XMS_ITS | Clinical Summary ---
Author Organization [facility] Address [address] [place] [address] Care Team Providers Care Obstetric Assistant Name Role Phone Carin Bolden NP Primary Care Provider [phone] Allergies No known active allergies Medications aspirin [...] (two) times a day. 180 tablet 1 Active Active Problems Problem Noted Date Diagnosed [...] to the mid LAD in 2017 at [facility]. The patient had been reporting episodes of [...] every night. Depression 05/09/2010 DM (diabetes mellitus) ([facility] V24, [facility] V28 ) 05/09/2010 HTN (hypertension) [...] Type Department Care Team Description 12/20/2024 Telephone [facility] Cardiology [facility] [address] [place] [address] Michelle Arellano NP Med Refill (Entresto 97-103 refill ) 12/19/2024 Telephone [facility] Cardiology [facility] [address] [place] [address] Adelina Chan MA Medication from Last 3 Months Surgical History Surgery Date Site/Laterality Comments COLONOSCOPY 2006? PROCEDURE: [place] COLONOSCOPY FLX DX W/COLLJ SPEC WHEN PFRMD ESOPHAGOGASTRODUODENOSCOPY 05/13/2010 PROCEDURE: [place] EGD TRANSORAL BIOPSY SINGLE/MULTIPLE; COMMENT: Normal esophagus [...] History Medical History Date Comments Diabetes mellitus (CMS/HCC V24, CMS/HCC V28) DX:Diabetes mellitus (HCC) JEVON (obstructive sleep [...] Description 02/15/2025 2:00 PM EDT Office Visit [facility] [address] [facility] [address] [place] [id number] Rob Melendez MD [address] [place] [address] [address] [place] [address] Health Maintenance Due Date Last Done Comments [...] PM EST Performed at: ??01 - [facility] [address] ??[id number] Adult Literacy Instructor: Kelley Hughes MD, Phone: ??[phone] Michelle A Adan ROTOR CASTING MACHINE SETUP OPERATOR LAB BLOOD ORDERABLES Final Result [facility] 1 [...] AM EST Performed at: ??01 - [facility] [address] ??[id number] Adult Literacy Instructor: Kelley Hughes MD, Phone: ??[phone] Michelle Arellano NP LAB BLOOD ORDERABLES Final Result [facility] 1 from Last 3 Months or Most Recently Relevant to Health Maintenance Insurance [employer] MEDICARE Member Subscriber Plan / Payer (Ef fective 2024-Present) Name:Bozena Osullivan Relation to Subscriber:Self Name:Bozena Osullivan Payer ID:[id number] Group ID:Not on file Type:Not on file Address: [place] [address] [phone] Care Teams Obstetric Assistant Relationship Specialty Start Date End Date Carin Bolden NP [address] [place] [address] [place] [phone] PCP - General 11/07/21
== END 2025-01-19 15:13 | disposition home or self-care (01) ==
LOC: HO.ENCR 12:54
PROVIDERS: PCP Nurse Practitioner Primary Care; Visit Provider Registered Nurse Diabetes Educator
DX: E11.9 Type 2 diabetes mellitus without complications (principal)

== ENCOUNTER → 2025-01-19 12:53 | Outpatient (BNVA) | payer OTHER, SELFPAY | PROVIDERS: PCP Nurse Practitioner Primary Care; Visit Provider Registered Nurse Diabetes Educator | DX: E11.9 Type 2 diabetes mellitus without complications (principal) | CPT/HCPCS: 99211 ==

== ENCOUNTER 2025-03-01 12:19 | Outpatient (AMB) | payer OTHER, SELFPAY ==
--- NOTE | 2025-03-01 12:26 | A.OFFVIS_ITS ---
Vital Signs 03/01/25 12:46 Height 5 ft 7 in Weight 199 lb BMI 31.2 BP 110/68 Blood Pressure Location Lt brachial Position Sitting Pulse 70 Pulse Oximetry (%) 96 Oxygen Delivery Method Room Air Intake Visit Reasons: 6 m f/u r/s 10/21/24 Intake Note: Patient follow up for dysphagia + CIC. Patient denies any GI issues, medication are working for her GERD and constipation. Patient also said she is doing better with the swallowing difficulty due she is eating more slowly. Oil Pit Attendant Required: Yes Oil Pit Attendant Name: [facility] interpeter Accompanied by: Self / Same As Patient Allergies No Known Allergies Allergy (Verified 03/01/25 12:38) HPI HPI 6 m f/u r/s 10/21/24: Details: Assessment & Plan (1) Gastroparesis: Comment: GES 03/02/2024 IMPRESSION: Abnormal study. There is severe retention of solid food in the stomach at 4 hours. Code(s): K31.84 - Gastroparesis Category: Medical (2) Upper abdominal pain: Code(s): R10.10 - Upper abdominal pain, unspecified Category: Medical (3) Abdominal bloating: Code(s): R14.0 - Abdominal distension (gaseous) Category: Medical (4) GERD (gastroesophageal reflux disease): Code(s): K21.9 - Gastro-esophageal reflux disease without esophagitis Category: Medical (5) Chronic idiopathic constipation: Code(s): K59.04 - Chronic idiopathic constipation Category: Medical (6) Dysphagia: Comment: Has 2 distinct problems with fluids entering the airway and things sticking at the GE junction. 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 aeb Code(s): R13.10 - Dysphagia, unspecified Category: Medical Plan SRI LANKAN #[id number] She received the reglan but is not taking it qid as instructed - she says I read the possible s/e and was afraid that it would interfere with my cardiac medications. I instruct her that this is not so, and it will be important to pace her stomach to keep things moving and prevent reflux and choking. She says she is very sensitive to medications, and if she truely can not tolerate it she will have to be extremely careful about choking as there is little I can do to treat the gastroparesis and its contribution to reflux and choking - especially in conjunction with her mounjaro. SHe tells me she has had several choking episodes especially on meats, and so this proves my point. She also has very poor dentition of her back teeth and admits this causes chewing problems. We discuss eating very slowly, cutting think smaller, eating softer foods and being careful when conversing while eating as this can confuse the epiglottis and cause choking. We again review the possible s/e of the reglan, and that most of these are very rare except at higher doses over 80mg/day and even then they are quite rare. If she really has problems we will try to address this, but she should try it first. She asks me about her liver, but I do not have blood work so I can't really answer this. I encourage her to go for the chem panel and the TSH. She continues on her pantoprazole, mylanta, LInzess, her BM's are still uneven and inconsistent and taking the reglan will also help this. In the past she has not taken the LInzess every day r/t moving my bowels all day, and my attempts to educate her that taking it daily would help alleviate this - but she can't seem to grasp this. 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 Obviously this is not a big problem and she can just do the blood work whenever she finds it convenient. I really do not have any severe worries that there is any big problems with her liver. ROV 4 mos. TODAY'S VISIT SRI LANKAN #Migdalia enamorado She is taking the reglan and LInzess as directed now. With this she is feeling much better. Her other health problems are also improving. Instead of a hyst they just removed a polyp and her cardiac stent has improved her cardiac problems. ROV 6 mos. [facility] Medical History Vertigo Cervicalgia Restless legs syndrome (RLS) Neuropathy Palpitations CAD (coronary artery disease) Depression High cholesterol Celiac disease HTN (hypertension) Hypothyroid Insulin dependent type 1 diabetes mellitus Surgical History H/O bilateral breast reduction surgery History of carpal tunnel release of both wrists History of section H/O abdominoplasty Hx of colonoscopy History of arthroplasty of left knee H/O heart artery stent Family History Mother Diabetes High blood pressure Father Diabetes High blood pressure Paternal Aunt Bone cancer Sister Breast cancer Sister Lymph node cancer Social History Household Members: None Housing: Apartment Are you a primary childcare attendant to a significant other at home: No Do you presently have visiting nurse or other home services: No Alcohol intake: never Patient Tobacco Use Status: Never used Tobacco service: No Current occupational status: disabled Review of Systems Const Denies fatigue, Denies fever(s), Denies night sweats, Denies poor appetite and D enies weight loss Eyes Details: glasses Reports requires corrective lenses ENT Reports Normal hearing present, Denies dental pain, Denies dysphagia, Denies hearing loss, Denies mouth pain, Denies odynophagia, Denies throat swelling, Denies tongue swelling and Reports other (Dentition adequate) Card Reports no additional complaints Resp Reports no additional complaints GI Details: Denies abdominal pain, Denies melena, Denies bloating, Denies hematochezia, Reports constipation, Denies GI cramping, Denies dysphagia, Denies excessive flatus, Reports early satiety, Reports heartburn, Denies diarrhea, Denies nausea, Denies odynophagia, Denies vomiting and Denies hematemesis Skin/Breast Denies pruritus, Denies lesions, Denies rash and Denies jaundice Neuro Reports Normal hearing present and Denies Abnormal speech present Endo Denies fatigue Aller/Immun Denies throat swelling and Denies tongue swelling Physical Exam Vital Signs: Last Vital Signs Pulse 70 03/01/25 12:46 BP 110/68 03/01/25 12:46 Pulse Ox 96 03/01/25 12:46 Oxygen Delivery Method Room Air 03/01/25 12:46 BMI result Body Mass Index 31.2 Const General: cooperative, no acute distress, well developed and well groomed Nutritional Appearance: well nourished and obese Orientation/consciousness: oriented to person, oriented to place and oriented to time Limitations: language barrier HEENT Head: Yes normocephalic and Yes atraumatic Eyes General: appearance normal, both eyes and all related structures Pupils: Equal, round and reactive pupils present Neck Neck: Yes normal visual inspection and Yes no lymphadenopathy Thyroid: Thyroid normal Resp Effort & Inspection: normal respiratory effort and able to speak in complete sentences Auscultation: clear to auscultation bilaterally Cardio Rate: regular rate Rhythm: regular rhythm Heart sounds: Normal, physiologic split S2 sound present Peripheral pulses: radial pulses present and posterior tibial pulses present GI Inspection: No distended, Yes Abdominal panniculus present and Yes obesity Palpation (GI): Soft to palpation, nontender, no guarding, not rigid and No hepatosplenomegaly present Percussion: Yes normal to percussion Auscultation: normal bowel sounds Rectal Exam - Female: deferred Skin General skin exam: no rashes or lesions noted, turgor normal, skin not dry, no jaundice, No spider nevi and no striae Rashes: no rashes Nails: normal Neuro General: oriented to person, oriented to place and oriented to time Cranial nerves: Yes Equal, round and reactive pupils present and Yes Normal hearing present Speech: No Abnormal speech present Extrem General: Yes normal to inspection, No clubbing, No cyanosis and No edema Psych Appearance: grossly normal and well kempt Mental Status: mental status grossly normal Speech and movement: Normal speech and movement present Affect: normal affect Attitude: cooperative Thought process: Normal thought process present and not confabulating Thought content: Normal thought content present Insight: Limited insight present (Psych) Judgement: Limited judgement present (Psych) Assessment & Plan Assessment & Plan (1) GERD (gastroesophageal reflux disease): Code(s): K21.9 - Gastro-esophageal reflux disease without esophagitis Category: Medical (2) Gastroparesis: Comment: GES 03/02/2024 IMPRESSION: Abnormal study. There is severe retention of solid food in the stomach at 4 hours. Code(s): K31.84 - Gastroparesis Category: Medical (3) Chronic idiopathic constipation: Code(s): K59.04 - Chronic idiopathic constipation Category: Medical (4) Abdominal bloating: Code(s): R14.0 - Abdominal distension (gaseous) Category: Medical (5) Dysphagia: Comment: Has 2 distinct problems with fluids entering the airway and things sticking at the GE junction. 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 aeb Code(s): R13.10 - Dysphagia, unspecified Category: Medical Plan SRI LANKAN #Migdalia live She is taking the reglan and LInzess as directed now. With this she is feeling much better. Her other health problems are also improving. Instead of a hyst they just removed a polyp and her cardiac stent has improved her cardiac problems. ROV 6 mos. Medications: Refilled pantoprazole 40 mg PO BID 60 tabs 6RF R13.10 - Dysphagia, unspecified, K21.9 - Gastro-esophageal reflux disease without esophagitis metoclopramide HCl (Reglan) 5 mg PO QIDACHS 120 tabs 6RF K31.84 - Gastroparesis linaclotide (Linzess) 290 mcg PO QAM 30 caps 6RF K59.04 - Chronic idiopathic constipation Coding Level of Care Code Est Pt Level 3 (19114) Diagnoses GERD (gastroesophageal reflux disease) K21.9 Gastroparesis K31.84 Chronic idiopathic constipation K59.04 Abdominal bloating R14.0 Dysphagia R13.10
[2025-03-01 12:46] VITALS: BP 110/68; PULSE 70; O2SAT 96; BMI 31.2
--- OUTSIDE RECORDS SUMMARY | 2025-03-01 14:11 | XMS_ITS | Patient Health Record ---
Author Organization [facility] Address [address] [place] [address] [place] [id number] Care Team Providers Care Executive Chairman Name Role Phone Jenna Beebe Primary Care Provider Lou Dacosta Unavailable [phone] Reason For Referral No Information Medications Medication SIG (Take, Route, Frequency, Duration) Notes Start Date End Date Status Atorvastatin Calcium 20 MG 1 tablet Orally Once a day for 90 days 01/29/2018 Active Nabumetone 500 MG 1 tablet Orally Twic e a day 07/01/2018 Active Insulin Syringe 31G X 16 as directed SC QID 04/04/2015 Active Ciprofloxacin HCl 500 MG 1 tablet Orally Twice a day 06/25/2017 Not-Taking Clotrimazole-Betamethason e 1-0.05 % 1 application to affected area Externally Twice a day 11/12/2018 Active NovoLIN 70/30 (70-30) 100 UNIT/ML 22 units in am and pm Subcutaneous bid for 90 days 02/08/2019 Active Levothyroxine Sodium 150 MCG 1 tablet Orally Once a day EMPTY STOMACH 04/04/2015 Active Losartan Potassium-HCTZ 100-12.5 MG 1 tablet Orally Once a day for 90 days 03/24/2016 Active Citalopram Hydrobromide 10 MG 1 tablet Orally Once a day 07/01/2018 Active Gabapentin 300 MG 1 capsule Orally Onc e a day for 30 day(s) 12/24/2018 Active HumuLIN 70/30 (70-30) 100 UNIT/ML 22 units sc in am and pm for 90 days 12/24/2018 Active Lantus 100 UNIT/ML 80 units am and pm Subcutaneous BID 02/12/2015 Active ALPRAZolam 0.5 MG 1 tablet Orally melvin y for 3 11/26/2018 Active [place] 3 1000 MG 1 capsule Orally Onc e a day 04/23/2016 Active True Metrix Test Strips STRIPS as directed In vitro tid 02/18/2016 Active Spironolactone 25 MG 1 tablet with food Orally Once a day Active Refresh 1.4-0.6 % 1 drop into affected eye as needed Ophthalmic BID for 30 days 09/20/2018 Active Furosemide 20 MG 1 tablet Orally Once a day Active Green Tea 150 MG Orally OTC Act sara glipiZIDE 10 MG 1 tablet Orally 1 tablet in the morning Active Azithromycin 250 MG 2 tablets on the , then 1 tablet daily for 4 days Orally Once a day for 5 day(s) 12/24/2018 Active Fluconazole 150 MG 1 tablet Orally Thre e times a Week for 10 day(s) 12/24/2018 Active Vitamin D (Ergocalciferol) 55792 UNIT 1 capsule Orally q weekly 07/17/2017 Active Aspir-81 81 MG 1 tablet Orally Once a day 03/14/2013 Active Folic Acid 1 MG 1 tablet Orally Once a day 07/01/2018 Active Augmentin 500-125 MG 1 tablet Orally josee ry 12 hrs for 10 days 06/03/2016 Not-Taking Cephalexin 500 MG 1 capsule Orally josee ry 6 hours 10/01/2018 Active Ciclopirox 8 % 1 drop to affected a mani Externally Once a day for 21 days 04/23/2016 Not-Taking Ciprofloxacin HCl 500 MG 1 tablet Orally Twice a day for 10 day(s) 04/23/2016 Not-Taking Azithromycin 250 MG 2 tablets on the , then 1 tablet daily for 4 days Orally Once a day for 5 day(s) 03/30/2017 Not-Taki ng True Metrix Lancets LANCETS as directed In vitro every 8 hours 02/18/2016 Active Ciclopirox 8 % 1 application to affected area Externally Once a day 09/20/2018 Active Omeprazole 20 MG 1 capsule Orally Onc e a day 02/28/2013 Active Clopidogrel Bisulfate 75 MG 1 tablet Orally Once a day 03/22/2018 Active FreeStyle Lite STRIPS as directed SC josee ry 6 hours for 30 days 04/14/2013 Unknown Immunizations Vaccine Route Administration Date Status Comme nts FLU VACC FLUCELVAX QUAD IM Intramuscular 06/09/2017 Admini stered Social History Tobacco Use: Social History Observation Description Date Details (start date - stop date) Never Smoker NA - NA Tobacco Use/Smoking Question Answer Notes Are you a nonsmoker Alcohol Screen Question Answer Notes Did you have a drink containing alcohol in the p ast year? No Points 0 Interpretation Negative Sexual History Question Answer Notes Had sex in the past 12 months (vaginal, oral, or anal)? No Have you ever had a Sexually transmitted disease ? No Problems Problem Type SNOMED Code ICD Code Onset Dates Problem Status W/U Status Risk Notes Problem 96955636 Type 2 diabetes mellitus with diabetic chronic kidney disease (E11.22) Active confirmed Problem 819393016 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) Active confirmed Problem 185359432 Type 2 diabetes mellitus with diabetic peripheral angiopathy without gangrene (E11.51) Active confirmed Problem Complication due to diabetes mellitus type 2 (56834634136181) Type 2 diabetes mellitus with other specified complication (E11.69) Active confirmed Problem 404773627 Mixed hyperlipidemia (E78.2) Active confirmed Problem 954328699 Other specific arthropathies, not elsewhere classified, left shoulder (M12.812) Active confirmed Problem 02137290570216399 Unspecified rotator cuff tear or rupture of left shoulder, not specified as traumatic (M75.102) Active confirmed Problem 50235139844761785 Diffuse cystic mastopathy of right breast (N60.11) Active confirmed Problem 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.4) Active confirmed Problem 267623955 Chronic kidney disease, stage II (mild) (N18.2) Active confirmed Problem Esophageal reflux (136854412) Esophageal reflux (K21.9) Active confirmed Problem Anxiety (58559888) Anxiety (F41.9) Active confi rmed Problem Hypothyroidism (92137604) Hypothyroidism (E03.9) Active confirmed Problem 10641735 Obstructive slee p apnea (G47.33) Active confirmed Problem Tear film insufficiency (27145956) Dry eye (H04.129) Active confirmed Problem 876254562932473 Osteoarthritis o f left shoulder, unspecified osteoarthritis type (M19.012) Active confirmed Problem 26946994 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) Active confirmed CXR 01/10/2 019 Problem 86261054 Mood disorder (F39) Active confirmed Problem 18035602 Left shoulder pain, unspecified chronicity (M25.512) Active confirmed Problem 78641942 Type 2 diabetes mellitus with polyneuropathy (E11.42) Active confirmed Problem Esotropia (94205581) Esotropia (H50.00) Active confirmed Problem 56093294 Type 2 diabetes mellitus with mild nonproliferative diabetic retinopathy without macular edema, bilateral (E11.3293) Active confirmed Problem 07497550 Hypertensive hea rt and chronic kidney disease with heart failure and stage 1 through stage 4 chronic kidney disease, or chronic kidney disease (I13.0) Active confirmed Problem 70372580 Pulmonary hypertension (I27.20) Active confirmed ECHO 015 Problem 141441205 Cervical spondylitis (M46.92) Active confirmed Problem Arthropathy of lumbar facet joint (729847675) Lumbar facet arthropathy (M46.96) Active confirmed MRI lumbar 03/29/20 14 Problem 753720914 Homocysteinemia (E72.19) Active confirmed Problem 335945327 CHF (NYHA class II, ACC/AHA stage C) (I50.9) Active confirmed EF 31% - 35% ECHO 018 Plan Of Treatment Pending Test Test Name Order Date MRI : Knee, left w/o contrast 10/02/2015 Abdominal Ultrasound 02/28/2013 Breasts, bilateral Ultrasound 02/20/2015 X ray : Shoulder, left 07/17/2017 X ray : Shoulder, left 07/08/2017 Echocardiogram 11/28/2014 Echocardiogram 11/20/2017 Mammogram Diagnostic 08/21/2015 DEXA Hip and Spine 01/05/2017 DEXA Hip and Spine 01/24/2014 DEXA 04/05/2013 Venous Doppler/Dupplex Bilateral Lower U /S 12/25/2017 Carotid Ultrasound 12/25/2017 Chest X-ray PA and lateral 2017 Chest X-ray PA and lateral 05/08/2014 Chest X-ray PA and lateral 12/25/2016 EKG Electrocardiogram 06/09/2017 EKG Electrocardiogram 10/02/2015 EKG Electrocardiogram 06/06/2014 EKG Electrocardiogram 11/20/2017 EKG Electrocardiogram 11/28/2014 Urinalysis, Complete 04/05/2013 TSH+Free T4 08/15/2013 Mammogram Screening 07/15/2013 Artery Doppler/Dupplex Bilateral Lower U /S 12/25/2017 Pelvic Ultrasound 12/01/2014 Pelvic Non/OB Ultrasound 12/01/2014 Pelvic Non/OB Ultrasound 03/07/2014 Ultrasound : Transvaginal Non OB 015 X ray : Foot, left 3v 07/01/2018 COMPREHENSIVE METABOLIC PANEL W/eGFR FECAL GLOBIN BY IMMUNOCHEM. (MEDICARE) O CCULT BLOOD-QUEST 09/20/2018 FECAL GLOBIN BY IMMUNOCHEM. (MEDICARE) O CCULT BLOOD-QUEST 10/02/2015 CBC, Platelet, No Diff 07/15/2013 LIPID PANEL WITH HDL/LDL RATIOS-Q 2016 ANACHOICE(R) SPECIFIC AB CASCADING REFLE X 04/05/2013 CULTURE, AEROBIC BACTERIA 12/17/2018 HEMOGLOBIN A1C-Q 10/02/2015 HEMOGLOBIN A1C-Q 01/16/2016 HEMOGLOBIN A1C-Q 08/21/2015 URINALYSIS, COMPLETE 07/15/2013 CBC (INCLUDES DIFF/PLT) 04/05/2013 MICROALBUMIN, RANDOM URINE (W/CREATININE ) 03/24/2016 MICROALBUMIN, RANDOM URINE (W/CREATININE ) 10/02/2015 MICROALBUMIN, RANDOM URINE (W/CREATININE ) 01/16/2016 MICROALBUMIN, RANDOM URINE (W/CREATININE ) 02/08/2019 MICROALBUMIN, RANDOM URINE (W/CREATININE ) 07/15/2013 LIPID PANEL 04/05/2013 SED RATE BY MODIFIED WESTERGREN 04/17/20 14 [id number] 05/08/2014 TSH, 3RD GENERATION-Q 07/15/2013 HIV AB, HIV 1/2, EIA, WITH REFLEXES 03/15 Liver/Spleen Ultrasound 12/29/2013 DO NOT USE THIS ORDER Mammogram Diagnost ic w Breast Ultrasound Bilateral 02/04/2017 Homocysteine, Plasma 02/08/2019 Urinalysis, Routine-LC 02/08/2019 Lipid Panel-Q-LC 02/08/2019 Lipid Panel-Q-LC 04/16/2018 Lipid Panel-Q-LC 09/05/2014 Lipid Panel-Q-LC 12/05/2013 Comprehensive Metabolic Panel (14) 02/08 Comprehensive Metabolic Panel 14+eGFR-LC -Q 04/16/2018 Comprehensive Metabolic Panel 14+eGFR-LC -Q 12/05/2014 Comprehensive Metabolic Panel 14+eGFR-LC -Q 12/05/2013 Comprehensive Metabolic Panel 14+eGFR-LC -Q 07/15/2013 Urinalysis, Fvvcxknb-OI-J 12/05/2013 Urinalysis, Exgmhlkz-ON-I 04/16/2018 GlycoMark(R)(1,5 AG)-LC 12/05/2013 Vitamin D 25-Hydroxy, D2 + D3-LC 016 Uric Acid, Serum-LC 12/05/2013 TSH-LC 09/05/2014 CBC With Differential/Bwxjjjyz-TH-V 11/2017 CBC With Differential/Welgxhat-IM-T 01/13 CBC With Differential/Wgdzgugr-XL-Z 11/13 C-Reactive Protein (CRP)-LC 04/17/2014 C3 Complement, Serum 04/17/2014 Hemoglobin A1C 12/05/2014 Hemoglobin A1C 02/08/2019 Hemoglobin A1C 10/01/2018 Hemoglobin A1C 12/05/2013 Urine Culture, Routine-LC 12/24/2018 Microalbumin/Creatinine Ratio, Random Ur ine-LC 12/05/2014 Microalbumin/Creatinine Ratio, Random Ur ine-LC 12/05/2013 Occult Blood, Fecal, IA-LAB KG 015 Occult Blood, Fecal, IA-LAB KG 014 Pap IG, Ct-Ng, rfx HPV ASCU-LC-AGE 21-29 11/12/2018 LIPID PANEL WITH DIRECT LDL-QUEST 2012 TSH+FREE T4 01/16/2016 TSH+FREE T4 03/24/2016 TSH+FREE T4 05/15/2015 HEMOGLOBIN A1C-Q 07/23/2015 MICROALBUMIN, RANDOM URINE (W/CREATININE ) 07/23/2015 Insurance Providers Payer Name Payer Address Payer Phone Subscriber Number Group Number Insured Name Patient Relationship to Insured Coverage Start Date Coverage End Date [facility] [address] [address] [place] [address] [id number] VANESSA BARKER Self - patient is the insured 5 [place] MEDICA[place] [address] [place], [place] [id number] VANESSA BARKER Self - patient is the insured Medications Administered Medication Instructions Date of Administration Dosage Notes B 12 up to 1000 mcg 11/20/2017 1 mL B 12 up to 1000 mcg 07/01/2018 1 mg Dexa 4 mg 12/15/2017 4 mg KENALOG 40MG 10/01/2016 40 mg KENALOG 40MG 03/30/2017 40 mg Rocephine 1 gram 12/08/2017 1 g Rocephine 1 gram 12/09/2017 1 g Rocephine 1 gram 12/10/2017 1 g Solumedrol up to 125 mg 12/08/2017 125 mg Solumedrol up to 125 mg 12/09/2017 125 mg Solumedrol up to 125 mg 12/10/2017 125 mg Solumedrol up to 125 mg 04/27/2018 125 mg Toradol 30 mg 03/21/2013 60 mg Toradol 30 MG 10/01/2016 30 mg Toradol 30 MG 07/01/2018 30 mg Medical (General) History Medical History History ICD Code Hypertension Hypothyroidism type II diabetes depression anxiety insomnia Surgical History Surgery Date(Month/Year) section 1988 ABDOMINOPLASTY / breast reduction 1992 KNEE SURGERY (FIXED TENDON ) 10/13/2016
== END 2025-03-01 13:14 | disposition home or self-care (01) ==
LOC: HO.HGI 12:20
PROVIDERS: PCP Nurse Practitioner Primary Care; Visit Provider Nurse Practitioner
DX: K21.9 Gastro-esophageal reflux disease without esophagitis (principal); K31.84 Gastroparesis; K59.04 Chronic idiopathic constipation; R14.0 Abdominal distension (gaseous); R13.10 Dysphagia, unspecified
CPT/HCPCS: 99213

== ENCOUNTER → 2025-03-01 12:19 | Outpatient (BNVA) | payer OTHER, SELFPAY | PROVIDERS: PCP Nurse Practitioner Primary Care; Visit Provider Nurse Practitioner | DX: R13.10 Dysphagia, unspecified (principal); K59.04 Chronic idiopathic constipation; K21.9 Gastro-esophageal reflux disease without esophagitis; R14.0 Abdominal distension (gaseous); R10.10 Upper abdominal pain, unspecified; K31.84 Gastroparesis | CPT/HCPCS: 99212 ==

== ENCOUNTER 2025-04-10 14:19 | Outpatient (REF) | payer OTHER, SELFPAY ==
--- OUTSIDE RECORDS SUMMARY | 2025-02-15 14:00 | XMS_ITS | Encounter Summary ---
Author Organization [facility] Address [address] [place] [address] Care Team Providers Care Electric Range Preparer Name Role Phone Kimi Carin Norris NP Primary Care Provider Reason for Referral * Imaging (Routine) - Authorized Specialty Diagnoses / Procedures Referred By Faraz t Referred To Contact Diagnoses Claudication ([facility] V[facility]) Procedures Vascular US duplex lower extremity arteries bilateral with JASON Gabriela Whitten MD [address] [place] [address] Dr [address] [place] [address] Phone: tel: fax: [facility] Referral ID Status Reason Start Date Expiration Date V isits Requested Visits Authorized [id number] Authorized 02/15/2025 02/15/2026 1 1 * Imaging (Routine) - Pending Review Specialty Diagnoses / Procedures Referred By Contac t Referred To Contact Cardiology Diagnoses Heart failure with reduced ejection fraction (CMS/HCC V24, CMS/HCC V28) Procedures Transthoracic echocardiogram (TTE) complete with PRN contrast, bubble, strain, and 3D order panel KS TTE W 2D IMAGE COMPLETE W DOPPLER ECHO & COLOR FLOW DOPPLER ECHO KS FAMILIA 2D COMPLETE W/CONTRAST OR W & WO CONTRAST WITH DOPPLER Gabriela Whitten MD [address] [place] [address] Dr [address] [place] [address] Phone: tel: fax: [facility] Referral ID Status Reason Start Date Expiration Date V isits Requested Visits Authorized [id number] Pending Review 02/15/2025 02/15/2026 1 1 Reason for Visit * Reason Comments Follow-up Encounter Details Date Type Department Care Team (Latest Contact Info) Description 02/15/2025 2:00 PM EDT Office Visit [facility] [address] [place] [address] Gabriela Whitten MD [address] [place] [address] [address] [place] [address] Heart failure with reduced ejection fraction (CMS/HCC V24, CMS/HCC V28) (Primary Dx); Primary hypertension; Coronary artery disease involving inupiat coronary artery of inupiat heart without angina pectoris; Claudication (CMS/HCC V24); Pure hypercholesterolemia Social History Tobacco Use Types Packs/Day Years Used Date Smoking Tobacco: Never Smokeless Tobacco: Never Alcohol Use Standard Drinks/Week Comments No 0 (1 standard drink = 0.6 oz pur e alcohol) Comments Unknown Sex and Gender Information Value Date Recorded Sex Assigned at Not on file Legal Sex Female 12:15 AM EST Gender Identity Not on file Sexual Orientation Not on file documented as of this encounter Last Filed Vital Signs Vital Sign Reading Time Taken Comments Blood Pressure 110/60 02/15/2025 1:39 PM EDT Pulse 79 02/15/2025 1:39 PM EDT Temperature - - Respiratory Rate - - Oxygen Saturation 95% 02/15/2025 1:39 PM EDT Inhaled Oxygen Concentration - - Weight 89.1 kg (196 lb 8 oz) 02/15/2025 1:39 PM EDT Height 170.2 cm (5' 7 ) 02/15/2025 1:39 PM EDT Body Mass Index 30.78 02/15/2025 1:39 PM EDT documented in this encounter Progress Notes * Gabriela Whitten MD - 02/15/2025 2:00 PM EDTAssociated Problem(s): Heart failure with reduced ejection fraction (CMS/HCC V24, CMS/HCC V28) The patient has a history of heart failure with reduced ejection fraction Etiology: Ischemic/nonischemic Ischemic evaluation: 1. Left heart cath in March 2024 showed a widely patent stent in the LAD and mild to moderate nonobstructive coronary artery disease in the rest of the coronary artery system. Nonischemic evaluation: 1. Cardiac MRI done in April 2022 did not show any evidence of an infiltrative cardiomyopathy or hypertrophic cardiomyopathy. LVEF trend: 1. Cardiac MRI done in April 2022 showed an LVEF of 40%. 2. Echocardiogram done in December 2023 showed an LVEF of 45 to 50%. GDMT Betablocker: Carvedilol 6.25 mg orally twice daily ZULEYMA Inhibitor-ASROJ/ARB/ARNI: Entresto 97/103 mg twice daily Diuretic: None MRA: Spironolactone 12.5 mg every other day SGLT2 inhibitors: Empagliflozin 25 mg orally daily ICD: Not a candidate due to LVEF Assessment and plan: 1. Continue current medication regimen. 2. Echocardiogram to reevaluate the LVEF. Orders: ECG 12 lead Transthoracic echocardiogram (TTE) complete with PRN contrast, bubble, strain, and 3D order panel; Future perflutren lipid microsphere (DEFINITY) 1.3 mL in sodium chloride 0.9% 8.7 mL injection * Gabriela Whitten MD - 02/15/2025 2:00 PM EDTAssociated Problem(s): HTN (hypertension) The patient has a history of arterial hypertension. The patient's blood pressure today was noted fabian well controlled. We'll continue the current antihypertensive medication regimen. Orders: ECG 12 lead * Gabriela Whitten MD - 02/15/2025 2:00 PM EDTAssociated Problem(s): CAD (coronary artery disease) The patient has a history of coronary artery disease. Currently, the patient denies any chest pain at rest or with exertion. The patient continues on secondary preventive therapy for CAD, including: aspirin, statin and beta estefany. Will continue current therapy. * Gabriela Whitten MD - 02/15/2025 2:00 PM EDTAssociated Problem(s): Claudication ([facility] V[facility]) The patient complains of bilateral leg discomfort with ambulation. Will order lower extremity arterial duplex to rule out the presence of PAD Orders: Vascular US duplex lower extremity arteries bilateral with JASON; Future * Gabriela Whitten MD - 02/15/2025 2:00 PM EDT [facility] Outpatient Follow Up Note PCP: Carin Bolden NP HPI: Bozena Eduardo Shi Michele is a 69 yr. old Female with a history of heart failure with reduced ejection fraction due to an ischemic cardiomyopathy, coronary artery disease status post coronary artery stent placement to the mid LAD in 2018 at [facility], diabetes mellitus type 2, obstructive sleep apnea on CPAP therapy, obesity, acute hypertension, and hypothyroidism, who underwent a follow-up evaluation today. On today's visit, the patient denies any chest pain at rest or with exertion, shortness of breath, palpitations, lower extremity edema, dizziness, or syncope. No CP. No SOB. No palps. No dizzy or syncope. The patient does refer symptoms of bilateral leg discomfort with ambulation. Cardiac Testin. Left heart catheterization 03/24/2024: Mild diffuse disease less than 30% in the left main. Mild luminal regularities less than 30% in the LAD with previous stent to the proximal LAD mid subsectionshowing wide patency. Left circumflex with mild luminal regularities less than 30%. 50% stenosis inthe mid subsection of the mid RCA. iFR of the mid RCA came out 0.94 indicating hemodynamically nonsignificant lesion. 2. Stress echocardiogram (January 2024): Nondiagnostic stress echocardiogram. The patient exercised for3 minutes and 28 seconds. The patient achieved 63% of the maximum tracy heart rate due to beta-estefany use. No chest pain during the exercise protocol. No ischemic ECG changes with exercise. RestingLVEF mildly reduced at 45 to 50%. Stress echocardiogram showed evidence of an apparent infarct of the basal inferior wall/basal inferoseptal wall and no evidence of exercise-induced cardiac ischemia. 3.. Echocardiogram 12/22/2023: LVEF 45 to 50%. Global hypokinesis is more pronounced in the basal inferoseptal wall and basal inferior wall. Normal RV size and function. No significant valvular stenosis or insufficiency. Mild ascending aorta dilation of 3.7 cm. When compared to the echocardiogram from January 2023 there has been improvement in the LVEF. 4. 30-day ambulatory loop monitor October 2023: Normal sinus rhythm. No sustained arrhythmias. During symptomatic events, the EKG at those times showed a normal sinus rhythm with occasional PACs. 5. Cardiac MRI April 2022: Mildly diminished global LV function with ejection fraction of 40%. There was some slightly dyssynchronous contraction about the apex which could reflect minor conduction abnormality or gating artifact. Late gadolinium enhancement revealed no abnormalities. There was mildly diminished global function in the right ventricle. ACTIVE MEDICATIONS: Outpatient Medications Marked as Taking for the 02/15/25 encounter (Office Visit) with Gabriela Whitten MD Medication Sig Dispense Refill aspirin 81 mg EC tablet Take 81 mg by mouth daily. blood pressure monitor (Blood Pressure Kit) kit 1 Each by Does not apply route Once. carvediloL (COREG) 6.25 mg tablet Take 1 Tablet by mouth 2 times daily. empagliflozin (Jardiance) 25 mg tablet Take 25 mg by mouth daily. insulin aspart (NovoLOG) 100 unit/mL injection Inject under the skin 3 (three) times a day with meals. -Administer within 5 minutes of a meal insulin degludec (Tresiba FlexTouch U-100) 100 unit/mL (3 mL) injection pen Inject 30 Units under the skin at bedtime. insulin glargine (Lantus U-100 Insulin) 100 unit/mL injection Inject 44 Units into the skin 2 timesdaily. insulin NPH-insulin regular (HumuLIN 70/30 U-100 Insulin) 100 unit/mL (70-30) injection Inject intothe skin 2 times daily. levothyroxine (SYNTHROID, LEVOTHROID) 137 mcg tablet Take 137 mcg by mouth daily. loratadine 10 mg capsule Take 10 Tabs by mouth every morning. metFORMIN (GLUCOPHAGE) 1,000 mg tablet Take 1 Tablet by mouth 2 times daily (with meals). plecanatide (Trulance) 3 mg tablet Take 1 Tablet by mouth daily. pregabalin (LYRICA) 75 mg capsule Take by mouth as needed. rosuvastatin (CRESTOR) 40 mg tablet Take 1 Tablet by mouth daily. sacubitriL-valsartan (Entresto) 97-103 mg per tablet Take 1 tablet by mouth 2 (two) times a day. 180 tablet 1 spironolactone (ALDACTONE) 25 mg tablet Take 0.5 Tablets by mouth every other day. tirzepatide (Mounjaro) 7.5 mg/0.5 mL injection Inject into the skin. Dose increased ALLERGIES: No Known Allergies SOCIAL HISTORY: Social History Tobacco Use Smoking status: Never Smokeless tobacco: Never Substance Use Topics Alcohol use: No REVIEW OF SYSTEMS: Review of Systems Constitutional: Negative for malaise/fatigue. Cardiovascular: Negative for chest pain, claudication, dyspnea on exertion, leg swelling, near-syncope, orthopnea, palpitations, paroxysmal nocturnal dyspnea and syncope. Respiratory: Negative for shortness of breath. Neurological: Negative for dizziness and light-headedness. PHYSICAL EXAM: Vitals: 02/15/25 1339 BP: 110/60 Pulse: 79 SpO2: 95% Body mass index is 30.78 kg/m??. Physical Exam Constitutional: Appearance: Normal appearance. HENT: Head: Normocephalic. Nose: Nose normal. Cardiovascular: Rate and Rhythm: Normal rate and regular rhythm. Heart sounds: Normal heart sounds. No murmur heard. No friction rub. No gallop. Pulmonary: Effort: Pulmonary effort is normal. Breath sounds: Normal breath sounds. Musculoskeletal: General: No swelling. Skin: General: Skin is warm. Neurological: Mental Status: She is oriented to person, place, and time. Mental status is at baseline. Psychiatric: Mood and Affect: Mood normal. Behavior: Behavior normal. EKG: Encounter Date: 02/15/25 ECG 12 lead Result Value Ventricular Rate ECG 74 Atrial Rate 74 P-R Interval 162 QRS Duration 122 Q-T Interval 398 QTc 441 R Reynolds -60 T Reynolds 19 ECG Interpretation Normal sinus rhythm with sinus arrhythmia Left anterior fascicular block Left ventricular hypertrophy with QRS widening Cannot rule out Septal infarct , age undetermined Abnormal ECG No previous ECGs available Confirmed by GABRIELA WHITTEN ([id number]) on 03/12/2025 5:25:10 PM *Note: Due to a large number of results and/or encounters for the requested time period, some results have not been displayed. A complete set of results can be found in Results Review. ASSESSMENT/PLAN: Assessment & Plan Heart failure with reduced ejection fraction (CMS/HCC V24, CMS/HCC V28) The patient has a history of heart failure with reduced ejection fraction Etiology: Ischemic/nonischemic Ischemic evaluation: 1. Left heart cath in March 2024 showed a widely patent stent in the LAD and mild to moderate nonobstructive coronary artery disease in the rest of the coronary artery system. Nonischemic evaluation: 1. Cardiac MRI done in April 2022 did not show any evidence of an infiltrative cardiomyopathy or hypertrophic cardiomyopathy. LVEF trend: 1. Cardiac MRI done in April 2022 showed an LVEF of 40%. 2. Echocardiogram done in December 2023 showed an LVEF of 45 to 50%. GDMT Betablocker: Carvedilol 6.25 mg orally twice daily ZULEYMA Inhibitor-SAROJ/ARB/ARNI: Entresto 97/103 mg twice daily Diuretic: None MRA: Spironolactone 12.5 mg every other day SGLT2 inhibitors: Empagliflozin 25 mg orally daily ICD: Not a candidate due to LVEF Assessment and plan: 1. Continue current medication regimen. 2. Echocardiogram to reevaluate the LVEF. Orders: ECG 12 lead Transthoracic echocardiogram (TTE) complete with PRN contrast, bubble, strain, and 3D order panel; Future perflutren lipid microsphere (DEFINITY) 1.3 mL in sodium chloride 0.9% 8.7 mL injection Primary hypertension The patient has a history of arterial hypertension. The patient's blood pressure today was noted fabian well controlled. We'll continue the current antihypertensive medication regimen. Orders: ECG 12 lead Coronary artery disease involving inupiat coronary artery of inupiat heart without angina pectoris The patient has a history of coronary artery disease. Currently, the patient denies any chest pain at rest or with exertion. The patient continues on secondary preventive therapy for CAD, including: aspirin, statin and beta estefany. Will continue current therapy. Claudication ([facility] V[facility]) The patient complains of bilateral leg discomfort with ambulation. Will order lower extremity arterial duplex to rule out the presence of PAD Orders: Vascular US duplex lower extremity arteries bilateral with JASON; Future The ERIC team will continue to co-manage this patient following the plan of care as established by my initial visit and as per AHA guidelines for ongoing management and surveillance of the medical conditions described previously in this note. This will include medication titration, initiation of appropriate medications and further titration, and diagnostic studies to manage this disease process. I have applied the code G2211 to this patient???s visit as the provider managing CAD, heart failure, hypertension, hyperlipidemia that is/are complex) leading to the extensive work up, ongoing monitoring, and management associated with the medical care of this patient.? I have a longitudinal relationship with the patient. Dictation Disclaimer Statement This document was developed in part, totally and/or in the combination using the tidy voice recognition software. Limitations of the petrography teacher due to software-hardware parity limitation may lead to unintended omission, grammatical or nonsensical errors, possibly missed and/or not readily detected during proof reading by the author of this document. If you have any questions or concerns, regarding the content of this note, please contact me directly. documented in this encounter Plan of Treatment Upcoming Encounters Date Type Department Care Team (Late st Contact Info) Description 05/25/2025 10:00 AM EDT Ancillary Procedure [facility] - [address] [place] [address] 05/31/2025 9:00 AM EDT Ancillary Procedure [facility] - [address] [place] [address] Scheduled Orders Name Type Priority Associated Diagnoses Order Schedule Transthoracic echocardiogram (TTE) complete with PRN contrast, bubble, strain, and 3D order panel Echocardiography Routine Heart failure with reduced ejection fraction (CMS/HCC V24, CMS/HCC V28) 1 Occurrences starting 02/15/2025 until 02/15/2026 Vascular US duplex lower extremity arteries bilateral with JASON Vascular Ultrasound Routine Claudication (CMS/HCC V24) 1 Occurrences starting 02/15/2025 until 02/15/2026 documented as of this encounter Procedures Procedure Name Priority Date/Time Associated Diagnosis Comments ECG 12-LEAD Routine 02/15/2025 1:51 PM EDT Heart failure with reduced ejection fraction (CMS/HCC V24, CMS/HCC V28) Primary hypertension documented in this encounter Results * ECG 12 lead (02/15/2025 1:51 PM EDT) Ventricular Rate ECG 74 BPM GEMUSE Atrial Rate 74 BPM GEMUSE P-R Interval 162 ms GEMUSE QRS Duration 122 ms GEMUSE Q-T Interval 398 ms GEMUSE QTc 441 ms GEMUSE R Reynolds -60 degrees GEMUSE T Reynolds 19 degrees GEMUSE ECG Interpretation Normal sinus rhythm with sinus arrhythmia Left anterior fascicular block Left ventricular hypertrophy with QRS widening Cannot rule out Septal infarct , age undetermined Abnormal ECG No previous ECGs available Confirmed by GABRIELA WHITTEN ([id number]) on 03/12/2025 5:25:10 PM GEMUSE 02/15/2025 1:51 PM EDT 03/12/2025 5:25 PM EDT us Gabriela Whitten MD ECG ORDERABLES Final Result GEMUSE documented in this encounter Visit Diagnoses Diagnosis Heart failure with reduced ejection fraction (CMS/HCC V24, CMS/HCC V28)- Primary Primary hypertension Unspecified essential hypertension Coronary artery disease involving inupiat coronary artery of inupiat heart without angina pectoris Claudication ([facility] V24) Unspecified peripheral vascular disease Pure hypercholesterolemia documented in this encounter Historical Medications * This list may reflect changes made after this encounter. insulin degludec (Tresiba FlexTouch U-100) 100 unit/mL (3 mL) injection pen Inject 30 Units under the skin at bedtime. insulin aspart (NovoLOG) 100 unit/mL injection Inject under the skin 3 (three) times a day with meals. -Administer within 5 minutes of a meal added in this encounter Care Teams Electric Range Preparer Relationship Specialty Start Date End Date Carin Bolden NP [address] [place] [phone] PCP - General 11/07/21 documented as of this encounter
--- NOTE | ~2025-04-10 | XR_ITS ---
EXAMINATION: XR KNEE, LEFT CLINICAL INFORMATION: 3 weeks of worsening left knee pain COMPARISON: None available. TECHNIQUE: Three views of the left knee. FINDINGS: There is mild narrowing of the medial clear space without narrowing of the lateral. There is probably a joint effusion. There is chondrocalcinosis involving the medial and lateral menisci. There are small marginal osteophytes involving the 3 joint compartment. Intercondylar tubercles are peaked. There is moderate vascular calcifications. 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 Borderline joint effusion. Electronically signed by: Kali Bruce MD 04/10/2025 03:14 PM EDT
--- NOTE | ~2025-04-10 | XR_ITS ---
EXAMINATION: XR LUMBOSACRAL SPINE CLINICAL INFORMATION: pt w 3 weeks of ongoing lower back pain COMPARISON: None available. TECHNIQUE: Three views of the lumbosacral spine. FINDINGS: There are 5 nonrib-bearing lumbar segments. There is 11 degrees levoscoliosis. T12-L1: There is mild disc space narrowing and anterior osteophyte. L1-L2: There is mild disc space narrowing and anterior osteophytes. L2-L3: There is mild disc space narrowing and anterior osteophytes. L3-L4: There is moderate disc space narrowing, vacuum phenomena, anterior osteophytes, and subtle retrolisthesis. L4-L5: There is mild disc space narrowing with endplate sclerosis and osteophytes. There is facet sclerosis and osteophytes. L5-S1: There is mild disc space narrowing with endplate sclerosis and anterior spurs. There is facet sclerosis and osteophytes. XR/XR lumbar spine 2-3V IMPRESSION: Multilevel degenerative disc disease and facet arthropathy. Mild levoscoliosis. Electronically signed by: Kali Bruce MD 04/10/2025 03:19 PM EDT
--- NOTE | ~2025-04-10 | XR_ITS ---
EXAMINATION: XR HIP, LEFT CLINICAL INFORMATION: 3 weeks of worsening left hip pain COMPARISON: None available. TECHNIQUE: AP and frog-leg lateral views of the left hip. FINDINGS: Cardiac calcinosis is visible in the lateral hip labrum. There is mild axial joint space narrowing. There is linear calcific density in the fibers disc of the pubic symphysis joint. Multifocal enthesophytes are evident involving iliac spine, greater trochanter, and ischemia . There is mild degenerative change in the left SI joint. XR/XR hip LT min 2V IMPRESSION: CPPD disease. Mild secondary osteoarthritis left hip and left SI joint. Electronically signed by: Kali Bruce MD 04/10/2025 03:16 PM EDT
--- OUTSIDE RECORDS SUMMARY | 2025-04-10 15:05 | XMS_ITS | Patient Health Record ---
Author Organization [employer]. Address [address] [place] [address] [place] [address] Care Team Providers Care Loss Prevention And Safety Manager Name Role Phone Jenna Beebe Primary Care Provider Lou Dacosta Unavailable [phone] Reason For Referral No Information Medications Medication [...] Orally melvin y for 3 11/26/2018 Active [place] 3 1000 MG 1 capsule Orally Onc [...] 10 day(s) 12/24/2018 Active Vitamin D (Ergocalciferol) 16349 UNIT 1 capsule Orally q weekly 07/17/2017 [...] Problem Status W/U Status Risk Notes Problem 06512072 Type 2 diabetes mellitus with diabetic chronic kidney disease (E11.22) Active confirmed Problem 961589120 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) Active confirmed Problem 014568373 Type 2 diabetes mellitus with diabetic peripheral angiopathy without gangrene (E11.51) Active confirmed Problem Complication due to diabetes mellitus type 2 (61820411525775) Type 2 diabetes mellitus with other specified complication (E11.69) Active confirmed Problem 899980150 Mixed hyperlipidemia (E78.2) Active confirmed Problem 979403339 Other specific arthropathies, not elsewhere classified, left shoulder (M12.812) Active confirmed Problem 29302395272581121 Unspecified rotator cuff tear or rupture of left shoulder, not specified as traumatic (M75.102) Active confirmed Problem 23588954368764082 Diffuse cystic mastopathy of right breast (N60.11) Active confirmed Problem 917943162 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 (Z79.4) Active confirmed Problem 123453117 Chronic kidney disease, stage II (mild) (N18.2) Active confirmed Problem Esophageal reflux (443097013) Esophageal reflux (K21.9) Active confirmed Problem Anxiety (00559512) Anxiety (F41.9) Active confi rmed Problem Hypothyroidism (38364938) Hypothyroidism (E03.9) Active confirmed Problem 19632269 Obstructive slee p apnea (G47.33) Active confirmed Problem Tear film insufficiency (84938301) Dry eye (H04.129) Active confirmed Problem 149347979560832 Osteoarthritis o f left shoulder, unspecified osteoarthritis type (M19.012) Active confirmed Problem 09326254 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) Active confirmed CXR 01/10/2 019 Problem 96154350 Mood disorder (F39) Active confirmed Problem 35400417 Left shoulder pain, unspecified chronicity (M25.512) Active confirmed Problem 13675280 Type 2 diabetes mellitus with polyneuropathy (E11.42) Active confirmed Problem Esotropia (08702846) Esotropia (H50.00) Active confirmed Problem 54637062 Type 2 diabetes mellitus with mild nonproliferative diabetic retinopathy without macular edema, bilateral (E11.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) Active confirmed Problem 09976219 Hypertensive hea rt and chronic kidney disease with heart failure and stage 1 through stage 4 chronic kidney disease, or chronic kidney disease (I13.0) Active confirmed Problem 66396726 Pulmonary hypertension (I27.20) Active confirmed ECHO 015 Problem 968209044 Cervical spondylitis (M46.92) Active confirmed Problem Arthropathy of lumbar facet joint (279262435) Lumbar facet arthropathy (M46.96) Active confirmed MRI lumbar 03/29/20 14 Problem 870315722 Homocysteinemia (E72.19) Active confirmed Problem 646844712 CHF (NYHA class II, ACC/AHA stage C) [...] Ultrasound 12/25/2017 Chest X-ray PA and lateral 12/25/2016 Chest X-ray PA and lateral 2017 Chest X-ray PA and lateral 05/08/2014 EKG Electrocardiogram 06/06/2014 EKG Electrocardiogram 10/02/2015 EKG Electrocardiogram 06/09/2017 EKG Electrocardiogram 11/20/2017 EKG Electrocardiogram 11/28/2014 Urinalysis, Complete 04/05/2013 TSH+Free T4 08/15/2013 Mammogram Screening 07/15/2013 Artery Doppler/Dupplex Bilateral Lower U /S 12/25/2017 Pelvic Ultrasound 12/01/2014 Pelvic Non/OB Ultrasound 12/01/2014 Pelvic Non/OB Ultrasound 03/07/2014 Ultrasound : Transvaginal Non OB 015 X ray : Foot, left 3v 07/01/2018 COMPREHENSIVE METABOLIC PANEL W/eGFR FECAL GLOBIN BY IMMUNOCHEM. (MEDICARE) O CCULT BLOOD-QUEST 10/02/2015 FECAL GLOBIN BY IMMUNOCHEM. (MEDICARE) O CCULT BLOOD-QUEST 09/20/2018 CBC, Platelet, No Diff 07/15/2013 LIPID PANEL WITH HDL/LDL RATIOS-Q 2016 ANACHOICE(R) SPECIFIC AB CASCADING REFLE X 04/05/2013 CULTURE, AEROBIC BACTERIA 12/17/2018 HEMOGLOBIN A1C-Q 01/16/2016 HEMOGLOBIN A1C-Q 10/02/2015 HEMOGLOBIN A1C-Q 08/21/2015 URINALYSIS, COMPLETE 07/15/2013 CBC (INCLUDES DIFF/PLT) 04/05/2013 MICROALBUMIN, RANDOM URINE (W/CREATININE ) 10/02/2015 MICROALBUMIN, RANDOM URINE (W/CREATININE ) 01/16/2016 MICROALBUMIN, RANDOM URINE (W/CREATININE ) 03/24/2016 MICROALBUMIN, RANDOM URINE (W/CREATININE ) 02/08/2019 MICROALBUMIN, RANDOM URINE (W/CREATININE ) 07/15/2013 LIPID PANEL 04/05/2013 SED RATE BY MODIFIED WESTERGREN 04/17/20 14 USVB-3-GQRVACHKDWTDB 05/08/2014 TSH, 3RD GENERATION-Q 07/15/2013 HIV AB, HIV 1/2, EIA, WITH REFLEXES 03/15 Liver/Spleen Ultrasound 12/29/2013 DO NOT USE THIS ORDER Mammogram Diagnost ic w Breast Ultrasound Bilateral 02/04/2017 Homocysteine, Plasma 02/08/2019 Urinalysis, Routine-LC 02/08/2019 Lipid Panel-Q-LC 02/08/2019 Lipid Panel-Q-LC 04/16/2018 Lipid Panel-Q-LC 12/05/2013 Lipid Panel-Q-LC 09/05/2014 Comprehensive Metabolic Panel (14) 02/08 Comprehensive Metabolic Panel 14+eGFR-LC -Q 04/16/2018 Comprehensive Metabolic Panel 14+eGFR-LC -Q 12/05/2014 Comprehensive Metabolic Panel 14+eGFR-LC -Q 12/05/2013 Comprehensive Metabolic Panel 14+eGFR-LC -Q 07/15/2013 Urinalysis, Oprehdnj-QZ-H 12/05/2013 Urinalysis, Spwrkxjy-DD-Q 04/16/2018 GlycoMark(R)(1,5 AG)-LC 12/05/2013 Vitamin D 25-Hydroxy, D2 + D3-LC 016 Uric Acid, Serum-LC 12/05/2013 TSH-LC 09/05/2014 CBC With Differential/Inbfyvrr-ES-L 11/2017 CBC With Differential/Xlsteavg-XO-D 11/13 CBC With Differential/Wvnttfta-TW-O 01/13 C-Reactive Protein (CRP)-LC 04/17/2014 C3 Complement, Serum 04/17/2014 Hemoglobin A1C 12/05/2014 Hemoglobin A1C 02/08/2019 Hemoglobin A1C 10/01/2018 Hemoglobin A1C 12/05/2013 Urine Culture, Routine-LC 12/24/2018 Microalbumin/Creatinine Ratio, Random Ur ine-LC 12/05/2014 Microalbumin/Creatinine Ratio, Random Ur ine-LC 12/05/2013 Occult Blood, Fecal, IA-LAB KG 014 Occult Blood, Fecal, IA-LAB KG 015 Pap IG, Ct-Ng, rfx HPV ASCU-LC-AGE 21-29 11/12/2018 LIPID PANEL WITH DIRECT LDL-QUEST 2012 TSH+FREE T4 05/15/2015 TSH+FREE T4 03/24/2016 TSH+FREE T4 01/16/2016 HEMOGLOBIN A1C-Q 07/23/2015 MICROALBUMIN, RANDOM URINE (W/CREATININE ) 07/23/2015 Insurance Providers Payer Name Payer Address Payer Phone Subscriber Number Group Number Insured Name Patient Relationship to Insured Coverage Start Date Coverage End Date [facility] [address] [address] [place] [address] [phone] [id number] VANESSA BARKER Self - patient is the insured 5 [place] MEDICA[place] [address] [place], [place] [id number] VANESSA BARKER Self - patient is the [...]
== END 2025-04-10 14:20 | disposition home or self-care (01) ==
LOC: HO.HHCX 14:19
PROVIDERS: PCP Nurse Practitioner Primary Care; Visit Provider Student in an Organized Health Care Education/Training Program
DX: M54.50 Low back pain, unspecified (principal); M25.552 Pain in left hip; M25.562 Pain in left knee
CPT/HCPCS: 72100; 73502; 73562

== ENCOUNTER → 2025-04-10 14:25 | Outpatient (BNV) | payer OTHER, SELFPAY | PROVIDERS: PCP Nurse Practitioner Primary Care; Visit Provider Radiology Diagnostic Radiology | DX: M47.816 Spondylosis without myelopathy or radiculopathy, lumbar region (principal); M11.252 Other chondrocalcinosis, left hip | CPT/HCPCS: 72100; 73562 ==

== ENCOUNTER 2025-04-25 10:51 | Outpatient (AMB) | payer OTHER, SELFPAY ==
--- NOTE | 2025-04-25 10:54 | MHC.OFFVIS ---
Vital Signs 04/25/25 10:58 Height 5 ft 7 in Weight 200 lb 9.93 oz BMI 31.4 BP 102/58 L Blood Pressure Location Lt brachial Position Sitting Pulse 70 Pulse Source Pulse Oximeter Pulse Oximetry (%) 97 Oxygen Delivery Method Room Air Intake Visit Reasons: T2DM Intake Note: Patient present today to follow up on Type 2 Diabetes Mellitus. Last seen by Katrin Crawford on 12/29/2024. Patient received Dexcom G7 supplies through: [employer] Last Diabetic Eye exam: 10/2024 Last Podiatry Visit: Approx 2 months ago, Dr. Caputo Random Glucose: 104 mg/dl HgA1C: 7.8% 04/25/2025 Mortgage Loan Counselor Required: Yes Mortgage Loan Counselor Language: Ruby On Rails Developer Services: Mortgage Loan Counselor Present Mortgage Loan Counselor [place] [facility] [place]/ Caroline Information Interpreted: non-clinical & clinical Accompanied by: Self / Same As Patient Allergies No Known Allergies Allergy (Verified 04/25/25 10:58) Medication List - Last Reconciled 04/25/25 by Antoine Cho MD alpha lipoic acid 300 mg PO BID alum-mag hydroxide-simeth 400-400-40 mg/5 mL (Mylanta Maximum Strength) 5 mL PO QID PRN aspirin 1 tab PO DAILY baclofen 10 mg PO BEDTIME PRN blood sugar diagnostic (FreeStyle Lite Strips) As directed 3 times a day blood-glucose meter (FreeStyle Lite Meter kit) As directed blood-glucose sensor (Dexcom G7 Sensor device) As directed carvedilol 1 tab PO DAILY gabapentin 600 mg (2 x 300 mg) PO BEDTIME insulin aspart U-100 (Novolog FlexPen U-100 Insulin aspart) , 30 units before breakfast, 34 units before lunch 30 units before supper subcutaneously 3 times a day; insulin degludec (Tresiba FlexTouch U-200 insulin) 34 units (0.17 mL) subcut BEDTIME 30 days lancets (FreeStyle Lancets) As directed 3 times a day levothyroxine 137 mcg PO DAILY linaclotide (Linzess) 290 mcg PO QAM melatonin 1 tab PO BEDTIME PRN metoclopramide HCl (Reglan) 5 mg PO QIDACHS multivitamin with folic acid 400 mcg (Daily-Fidelia (with folic acid)) 1 tab PO DAILY pantoprazole 40 mg PO BID rosuvastatin 20 mg PO BEDTIME rosuvastatin 40 mg PO DAILY sacubitril-valsartan 97-103 mg (Entresto) 1 tab PO DAILY spironolactone 25 mg PO DAILY Synjardy XR 10-1,000 mg (empagliflozin-metformin) 2 tabs (2 x 10-1,000 mg) PO DAILY 30 days NS tirzepatide (Mounjaro) 7.5 mg (0.5 mL) subcut QWEEK 28 days HPI Comments Details: 69 YO F who is seen in f/u for T2DM at the request of PCP. She was last seen 12/29/24 by Katrin Sandoval NP . Initially diagnosed with T2DM in 20 yrs . Was initially started on treatment with metformin 1000 mg BID Tresiba 34 units Novolog Breakfast 30 units lunch 34 units supper 30 units Mounjaro 7.5 mg Qwkly Synjardy XR 10-1000 mg BID Dexcom download shows average glucose to be 177 with G mi of 7.5% and standard deviation of 43 as well as coefficient of variation 24.2%. 57% range with 43% hyperglycemia and no hypoglycemia. Pen shows persistent hyperglycemia throughout the day Treats lows with diabetic shakes. Very rare Checks sugar after to ensure it is rising. Treats and checks 1 hr after correction . Family history of T2DM in brothers and sisters. Has retinopathy, stable, Has eyes checked yearly, last eye exam 10/2024 Has catracts, mild has neuropathy, on gabapentin numbness and tingling Has nephropathy, on ARB 05/10/2024 EGFR 51 microalbumin 05/10/2024 133 10/28/2022 847 Has HLD, on statin. LDL 64 11/07 Has CAD. Had diabetes education. [facility] Medical History Vertigo Cervicalgia Restless legs syndrome (RLS) Neuropathy Palpitations CAD (coronary artery disease) Depression High cholesterol Celiac disease HTN (hypertension) Hypothyroid Insulin dependent type 1 diabetes mellitus Surgical History H/O bilateral breast reduction surgery History of carpal tunnel release of both wrists History of section H/O abdominoplasty Hx of colonoscopy History of arthroplasty of left knee H/O heart artery stent Family History Mother Diabetes High blood pressure Father Diabetes High blood pressure Paternal Aunt Bone cancer Sister Breast cancer Sister Lymph node cancer Social History Household Members: None Housing: Apartment Are you a primary direct care supervisor to a significant other at home: No Do you presently have visiting nurse or other home services: No Alcohol intake: never Patient Tobacco Use Status: Never used Tobacco service: No Current occupational status: disabled Physical Exam Vital Signs: Last Vital Signs Pulse 70 04/25/25 10:58 BP 102/58 L 04/25/25 10:58 Pulse Ox 97 04/25/25 10:58 Oxygen Delivery Method Room Air 04/25/25 10:58 BMI result Body Mass Index 31.4 Absence of Cushingoid features. Absence of acromegalic features. Neck exam reveals nl size thyroid about 15 gms. No thyroid nodules palpable. No carotid bruits present. Lungs CTA. Heart S1 S2, Reg R/R. No M/R/ G. Skin exam reveals absence of vitiligo or acanthosis nigricans. Abdominal exam reveals Soft NT/ND with NA BS. No organomegaly present. Neck Other: . Extrem Other: Visual exam of foot performed.R third toe with scaled lesion followed by podiatry . No open lesions. No onchomycosis, no callouses.Pulses 2 + distally Sensation decreased to monofilament exam. Vibratory sensation sensed is decreased with 128 Hz tuning fork Results AMB Hemoglobin A1c AMB Hemoglobin A1c 7.8 % Last Edit by LAKEISHA Miller on 04/25/25 11:19 Results Reviewed Results Reviewed: Laboratory Last Values Glucose (Clinic) 104 mg/dL (60-115) 04/25/25 11:07 Hgb A1c (Clinic) 7.8 % (4.0-6.0) H 04/25/25 11:11 Assessment & Plan Assessment & Plan (1) Type 2 diabetes mellitus: Code(s): E11.9 - Type 2 diabetes mellitus without complications Category: Medical Plan: This is a 67-year-old female with a history of type 2 diabetes being treated metformin,Mounjaro and basal-bolus insulin with good but not optimal glycemic control and known macrovascular and microvascular complications namely CAD and neuropathy Plan is to increase the Tresiba to 40 units and will increase Mounjaro to 10 mg Qwkly if pt tolerates . . I asked her to report any hypoglycemia for adjustment of insulin. We will have patient follow up with primary care diabetes team in 3 months Orders: Orders AMB Hemoglobin A1c Today E11.9 - Type 2 diabetes mellitus without complications Medications: New tirzepatide (Mounjaro) 10 mg (0.5 mL) subcut QWEEK 2 mL 5RF Changed From insulin degludec (Tresiba FlexTouch U-200 insulin) 34 units (0.17 mL) subcut BEDTIME 30 days 6 mL 11RF E11.9 - Type 2 diabetes mellitus without complications To insulin degludec (Tresiba FlexTouch U-200 insulin) 40 units (0.2 mL) subcut BEDTIME 6 mL 11RF 30 days E11.9 - Type 2 diabetes mellitus without complications Discontinued tirzepatide (Mounjaro) Discontinued Reason: Doctor's Order 7.5 mg (0.5 mL) subcut QWEEK 28 days 2 mL 11RF Coding Level of Care Code Est Pt Level 4 (15677) Complex EM visit Add On G2211 Diagnoses Type 2 diabetes mellitus E11.9
[2025-04-25 10:58] VITALS: BP 102/58; PULSE 70; O2SAT 97; BMI 31.4
[2025-04-25 11:12] LABS: Glucose, Whole Blood 104 mg/dL (60-115)
--- OUTSIDE RECORDS SUMMARY | 2025-04-25 12:00 | XMS_ITS | Patient Health Record ---
Author Organization [employer]. Address [address] [place] [address] [place] [address] Care Team Providers Care Hvac Estimator Name Role Phone Jenna Beebe Primary Care Provider [phone] Lou Dacosta Unavailable [phone] Reason For Referral No Information Medications Medication SIG (Take, Route, Frequency, Duration) Notes Start Date End Date Status Atorvastatin Calcium 20 MG 1 tablet Orally Once a day; Duration: 90 days 01/29/2018 Active Nabumetone 500 MG 1 tablet Orally Twic e a day 07/01/2018 Active Insulin Syringe 31G X 516 as directed SC QID 04/04/2015 Active Ciprofloxacin HCl 500 MG 1 tablet Orally Twice a day 06/25/2017 Not-Taking Clotrimazole-Betamethason e 1-0.05 % 1 application to affected area Externally Twice a day 11/12/2018 Active NovoLIN 70/30 (70-30) 100 UNIT/ML 22 units in am and pm Subcutaneous bid; Duration: 90 days 02/08/2019 Active Levothyroxine Sodium 150 MCG 1 tablet Orally Once a day EMPTY STOMACH 04/04/2015 Active Losartan Potassium-HCTZ 100-12.5 MG 1 tablet Orally Once a day; Duration: 90 days 03/24/2016 Active Citalopram Hydrobromide 10 MG 1 tablet Orally Once a day 07/01/2018 Active Gabapentin 300 MG 1 capsule Orally Onc e a day; Duration: 30 day(s) 12/24/2018 Active HumuLIN 70/30 (70-30) 100 UNIT/ML 22 units sc in am and pm; Duration: 90 days 12/24/2018 Active Lantus 100 UNIT/ML 80 units am and pm Subcutaneous BID 02/12/2015 Active ALPRAZolam 0.5 MG 1 tablet Orally melvin y; Duration: 3 11/26/2018 Active [place] 3 1000 MG 1 capsule Orally Onc e a day 04/23/2016 Active True Metrix Test Strips STRIPS as directed In vitro tid 02/18/2016 Active Spironolactone 25 MG 1 tablet with food Orally Once a day Active Refresh 1.4-0.6 % 1 drop into affected eye as needed Ophthalmic BID; Duration: 30 days 09/20/2018 Active Furosemide 20 MG 1 tablet Orally Once a day Active Green Tea 150 MG Orally OTC Act sara glipiZIDE 10 MG 1 tablet Orally 1 tablet in the morning Active Azithromycin 250 MG 2 tablets on the day, then 1 tablet daily for 4 days Orally Once a day; Duration: 5 day(s) 12/24/2018 Active Fluconazole 150 MG 1 tablet Orally Thre e times a Week; Duration: 10 day(s) 12/24/2018 Active Vitamin D (Ergocalciferol) 92304 UNIT 1 capsule Orally q weekly 07/17/2017 Active Aspir-81 81 MG 1 tablet Orally Once a day 03/14/2013 Active Folic Acid 1 MG 1 tablet Orally Once a day 07/01/2018 Active Augmentin 500-125 MG 1 tablet Orally josee ry 12 hrs; Duration: 10 days 06/03/2016 Not-Taking Cephalexin 500 MG 1 capsule Orally josee ry 6 hours 10/01/2018 Active Ciclopirox 8 % 1 drop to affected a mani Externally Once a day; Duration: 21 days 04/23/2016 Not-Taking Ciprofloxacin HCl 500 MG 1 tablet Orally Twice a day; Duration: 10 day(s) 04/23/2016 Not-Taking Azithromycin 250 MG 2 tablets on the day, then 1 tablet daily for 4 days Orally Once a day; Duration: 5 day(s) 03/30/2017 Not-Taking True Metrix Lancets LANCETS as directed In vitro every 8 hours 02/18/2016 Active Ciclopirox 8 % 1 application to affected area Externally Once a day 09/20/2018 Active Omeprazole 20 MG 1 capsule Orally Onc e a day 02/28/2013 Active Clopidogrel Bisulfate 75 MG 1 tablet Orally Once a day 03/22/2018 Active FreeStyle Lite STRIPS as directed SC josee ry 6 hours; Duration: 30 days 04/14/2013 Unknown Immunizations Vaccine Route [...] Problem Status W/U Status Risk Notes Problem Diabetic renal disease (368791099) Type 2 diabetes mellitus with diabetic chronic kidney disease (E11.22) Active confirmed Problem Diabetic cataract associated with type II diabetes mellitus (475582241) 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) Active confirmed Problem Type 2 diabetes mellitus with peripheral angiopathy (046822591) Type 2 diabetes mellitus with diabetic peripheral angiopathy without gangrene (E11.51) Active confirmed Problem Type 2 diabetes mellitus with other specified complication (E11.69) Active confirmed Problem Mixed hyperlipidemia (337719688) Mixed hyperlipidemia (E78.2) Active confirmed Problem Rotator cuff arthropathy of left shoulder (disorder) (96583085715567741 ) Other specific arthropathies, not elsewhere classified, left shoulder (M12.812) Active confirmed Problem Nontraumatic rupture of muscle or tendon structure of rotator cuff of left shoulder (disorder) (7860269918466412) Unspecified rotator cuff tear or rupture of left shoulder, not specified as traumatic (M75.102) Active confirmed Problem Fibrocystic breast changes (56553669) Diffuse cystic mastopathy of right breast (N60.11) Active confirmed Problem Long-term current use of insulin (730938454) 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 current use of insulin (Z79.4) Active confirmed Problem Chronic kidney disease stage 2 (596226450) Chronic kidney disease, stage II (mild) (N18.2) Active confirmed Problem Esophageal reflux (579233923) Esophageal reflux (K21.9) Active confirmed Problem Anxiety (69576113) Anxiety (F41.9) Active confi rmed Problem Hypothyroidism (35138077) Hypothyroidism (E03.9) Active confirmed Problem Obstructive sleep apnea (76738436) Obstructive sleep apnea (G47.33) Active confirmed Problem Tear film insufficiency (42530670) Dry eye (H04.129) Active confirmed Problem Localized, primary osteoarthritis of the shoulder region (753802998) Osteoarthritis of left shoulder, unspecified osteoarthritis type (M19.012) Active confirmed Problem Stricture of artery (78647590) 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) Active confirmed CXR 09/23/19 19 Problem Mood disorder (24714969) Mood disorder (F39) Active confirmed Problem Shoulder joint pain (966139700) Left shoulder pain, unspecified chronicity (M25.512) Active confirmed Problem Polyneuropathy due to type 2 diabetes mellitus (131759407) Type 2 diabetes mellitus with polyneuropathy (E11.42) Active confirmed Problem Esotropia (58853354) Esotropia (H50.00) Active confirmed Problem Mild nonproliferative retinopathy due to type 2 diabetes mellitus (687838787880367) Type 2 diabetes mellitus with mild nonproliferative diabetic retinopathy without macular edema, bilateral (E11.3293) Active confirmed Problem Hypertensive heart AND chronic kidney disease with congestive heart failure (54907916700366) Hypertensive heart and chronic kidney disease with heart failure and stage 1 through stage 4 chronic kidney disease, or chronic kidney disease (I13.0) Active confirmed Problem Pulmonary hypertension (27004389) Pulmonary hypertension (I27.20) Active confirmed ECHO 12/02/19 15 Problem Cervical spondylitis (732199757) Cervical spondylitis (M46.92) Active confirmed Problem Arthropathy of lumbar facet joint (841031534) Lumbar facet arthropathy (M46.96) Active confirmed MRI lumbar 4 Problem Homocysteine level above reference range (finding) (569276178255338) Homocysteinemia (E72.19) Active confirmed Problem Heart failure (30851860) CHF (NYHA class II, ACC/AHA stage C) (I50.9) Active confirmed EF 31% - 35% ECHO 12/03/19 18 Plan Of Treatment Pending Test Test Name [...] lateral 2017 Chest X-ray PA and lateral 12/25/2016 Chest X-ray PA and lateral 05/08/2014 EKG Electrocardiogram 06/09/2017 EKG Electrocardiogram 11/20/2017 EKG Electrocardiogram 06/06/2014 EKG Electrocardiogram 10/02/2015 EKG Electrocardiogram 11/28/2014 Urinalysis, Complete 04/05/2013 TSH+Free [...] DIFF/PLT) 04/05/2013 MICROALBUMIN, RANDOM URINE (W/CREATININE ) 01/16/2016 MICROALBUMIN, RANDOM URINE (W/CREATININE ) 03/24/2016 MICROALBUMIN, RANDOM URINE (W/CREATININE ) 10/02/2015 MICROALBUMIN, RANDOM URINE (W/CREATININE ) 02/08/2019 MICROALBUMIN, RANDOM URINE (W/CREATININE ) 07/15/2013 LIPID PANEL 04/05/2013 SED RATE BY MODIFIED DREWREN 04/17/20 14 DAQV-1-[id number] 05/08/2014 TSH, 3RD GENERATION-Q 07/15/2013 HIV AB, HIV 1/2, EIA, WITH REFLEXES 03/15 Liver/Spleen Ultrasound 12/29/2013 DO NOT USE THIS ORDER Mammogram Diagnost ic w Breast Ultrasound Bilateral 02/04/2017 Homocysteine, Plasma 02/08/2019 Urinalysis, Routine-LC 02/08/2019 Lipid Panel-Q-LC 04/16/2018 Lipid Panel-Q-LC 02/08/2019 Lipid Panel-Q-LC 09/05/2014 Lipid Panel-Q-LC 12/05/2013 Comprehensive Metabolic Panel (14) 02/08 Comprehensive Metabolic Panel 14+eGFR-LC -Q 04/16/2018 Comprehensive Metabolic Panel 14+eGFR-LC -Q 12/05/2014 Comprehensive Metabolic Panel 14+eGFR-LC -Q 07/15/2013 Comprehensive Metabolic Panel 14+eGFR-LC -Q 12/05/2013 Urinalysis, Crlhyblm-TC-R 12/05/2013 Urinalysis, Shkifglu-TM-W 04/16/2018 GlycoMark(R)(1,5 AG)-LC 12/05/2013 Vitamin D 25-Hydroxy, D2 + D3-LC 016 Uric Acid, Serum-LC 12/05/2013 TSH-LC 09/05/2014 CBC With Differential/Bktdgmwd-BO-T 11/13 CBC With Differential/Wzfbtmmc-KR-F 0811/2017 CBC With Differential/Lxmvitdr-GZ-P 01/13 C-Reactive Protein (CRP)-LC 04/17/2014 C3 Complement, [...] Insured Coverage Start Date Coverage End Date [facility] [employer] [address] [address] [place] [id number] VANESSA BARKER Self - patient is the insured [facility] [employer] [address] [place], [place] [id number] VANESSA BARKER Self - patient is the [...]
--- OUTSIDE RECORDS SUMMARY | 2025-04-25 12:00 | XMS_ITS | Encounter Summary ---
Author Organization [employer] Address [address] [place] [address] Care Team Providers Care Women Specialist Name Role Phone Carin Bolden Primary Care Provider [phone] Reason for Visit * Reason Onset Date Comments Appointment Request 03/22/2025 Encounter Details Date Type Department Care Team ([facility] st Contact Info) Description 03/22/2025 Telephone [facility] [address] [place], [place] [phone] Carin Bolden ANP [address] [place], [place] [phone] Appointment Request Social History Tobacco Use Types Packs/Day Years [...] AM EDT documented as of this encounter Miscellaneous Notes * Telephone Encounter - Nabor Gonzalez - 03/22/2025 11:30 AM EDT Tc from pt calling in regards to Neuropathy appt, copy writer attempted to schedule but did not find any30 min slot available documented in this encounter Plan of Treatment Upcoming Encounters Date Type Department Care Team (Late st Contact Info) Description 04/26/2025 3:30 PM EDT Office Visit [facility] [address] [place] [phone] Carin Bolden ANP [address] [place] [address] 06/12/2025 3:15 PM EDT Office Visit [facility] [address] [place] [address] Carin Bolden ANP [address] [place] [address] documented as of this encounter Visit Diagnoses Not on filedocumented in this encounter Additional Health Concerns Assessment Noted Time PHQ-9 Depression Total Score: 14 025 1:36 PM EDT documented as of this encounter Care Teams Women Specialist Relationship Specialty Start Date End Date Carin Bolden ANP [address] [place] [address] PCP - General Family Medicine 10/10/21 documented as of this encounter
--- OUTSIDE RECORDS SUMMARY | 2025-04-25 12:00 | XMS_ITS | Clinical Summary ---
Author Organization [facility] [employer] Address [address] [place], [place] [address] Phone Care Team Providers Care Materials Assistant Name Role Phone Carin Bolden NP Primary Care Provider [phone] Allergies No known active allergies Medications aspirin [...] a day. 180 tablet 1 5 Active insulin aspart (NovoLOG) 100 unit/mL injection Inject under the skin 3 (three) times a day with meals. -Administer within 5 minutes of a meal Active insulin degludec (Tresiba FlexTouch U-100) 100 unit/mL (3 mL) injection pen Inject 30 Units under the skin at bedtime. Active Active Problems Problem Noted Date Diagnosed Date Claudication ([facility] V24) 02/15/2025 Assessment & Plan (04/04/2025 7:18 PM EDT): The patient complains of bilateral leg discomfort with ambulation. Will order lower extremity arterial duplex to rule out the presence of PAD Orders: Vascular US duplex lower extremity arteries bilateral with JASON; Future Heart failure with reduced e jection fraction ([facility] V24, [facility] V28) 03/07/2022 Overview (09/27/2024): Last Assessment & [...] medical therapies given her blood pressure today. Assessment & Plan (04/04/2025 7:18 PM EDT): The patient has a history of heart [...] in sodium chloride 0.9% 8.7 mL injection CAD (coronary artery disease) 12/02/2021 Overview (09/27/2024): w/ stent Last Assessment & Plan: The patient has a history of coronary artery disease status post coronary artery stent placement to the mid LAD in 2018 at [facility]. The patient had been reporting episodes [...] medications given recent left heart catheterization result. Assessment & Plan (04/04/2025 7:18 PM EDT): The patient has a history of coronary artery disease. Currently, the patient denies any chest pain at rest or with exertion. The patient continues on secondary preventive therapy for CAD, including: aspirin, statin and beta estefany. Will continue current therapy. Hypothyroid 12/02/2021 JEVON (obstructive sleep apnea) 12/02/2021 Overview (09/27/2024): Last Assessment & Plan: The patient has a history of obstructive sleep apnea. She recently completed her titration study. After the titration study, the patient said that she was started on CPAP therapy and she has been using it every night. Depression 05/09/2010 DM (diabetes mellitus) ([facility] V24, [facility] V28 ) 05/09/2010 HTN (hypertension) 05/09/2010 Overview (09/27/2024): Last Assessment & Plan: Patient's blood pressure is well-controlled today. She will continue her current antiparkinson medication regimen as prescribed. No changes to medical therapies. Assessment & Plan (04/04/2025 7:18 PM EDT): The patient has a history of arterial hypertension. The patient's blood pressure today was noted to be well controlled. We'll continue the current antihypertensive medication regimen. Orders: ECG 12 lead Hyperlipidemia 05/09/2010 Overview (09/27/2024): Last Assessment & [...] and following up with routine medical care. Resolved Problems Problem Noted Date Diagnosed Date Resolved Date Palpitations 08/28/2023 02/15/2025 Overview (09/27/2024): Last Assessment & Plan: Patient Dors is resolution of palpitations. Recent 30-day Holter monitor as outlined above did not reveal any sustained arrhythmias. Continue on carvedilol. She was encouraged to be mindful of her caffeine and alcohol intake as well as staying hydrated. Encounters Date Type Department Care Team Description 02/15/2025 2:00 PM EDT Office Visit [facility] [address] [place] [address] Gabriela Whitten MD Heart failure with reduced ejection fraction ([facility] V24, [facility] V28) (Primary Dx); Primary hypertension; Coronary artery disease involving pra[place] coronary artery of prairie island heart without angina pectoris; Claudication (CMS/[facility] V24); Pure hypercholesterolemia from Last 3 Months Surgical History Surgery Date Site/Laterality Comments COLONOSCOPY 2006? PROCEDURE: [place] COLONOSCOPY FLX DX W/COLLJ SPEC WHEN PFRMD ESOPHAGOGASTRODUODENOSCOPY 05/13/2010 PROCEDURE: [place] EGD TRANSORAL BIOPSY SINGLE/MULTIPLE; COMMENT: Normal esophagus [...] History Medical History Date Comments Diabetes mellitus (CMS/[facility] V24, [facility] V28) DX:Diabetes mellitus (HCC) JEVON (obstructive sleep [...] Mass Index 30.78 02/15/2025 1:39 PM EDT Plan of Treatment Upcoming Encounters Date Type Department Care Team (Late st Contact Info) Description 05/01/2025 12:00 PM EDT Ancillary Procedure [facility] - [facility] [address] [address] 05/31/2025 9:00 AM EDT Ancillary Procedure [facility] - [facility] [address] [address] Health Maintenance Due Date Last Done Comments Breast Cancer Screening 1955 Diabetes: Annual Foot Exam 1965 Diabetes: Annual Retina Eye Exam 1965 Zoster Vaccines (1 of 2) 2005 Colorectal Cancer Screening: Colonoscopy 08/14/2022 Falls Risk Assessment 08/14/2022 Hepatitis C Screening 08/14/2022 Medicare Annual Wellness Visit 08/14/2022 Osteoporosis Screening (Bone Density Screening) 08/14/2022 Social Influencers of Health Screening 08/14/2022 Diabetes: Annual Urine Albumin-Creatinine Ratio (uACR) 08/24/2022 COVID-19 Vaccine ( season) 2024 10/20/2023, 08/09/2022, 02/11/2022 Depression Screening 09/14/2024 Influenza Vaccine (#1) 2025 , 06/12/2023, 06/13/2022, Additional history exists Diabetes: Blood Sugar Control Test (HGBA1C) 06/02/2025 11/30/2024, 07/21/2024 Diabetes: Annual GFR (Glomerular Filtration Rate) 01/16/2026 01/16/2025, 12/16/2024, 10/17/2024, Additional history exists Hypertension/CHF/CAD Annual BMP Blood Test 01/16/2026 01/16/2025, 12/16/2024, 10/17/2024, Additional history exists Cholesterol Screening (Lipid Panel) 01/16/2030 01/16/2025, 11/30/2024, 10/18/2024, Additional history exists DTaP,Tdap,and Td Vaccines (3 - Td or Tdap) 11/26/2031 11/25/2021, 08/14/2009 Hepatitis B Vaccines Completed 12/18/2009, 08/14/2009, 06/29/2009 MMR Vaccines Aged Out 12/18/2009, 11/15/2009 No lo nger eligible based on patient's age to complete this topic Pneumococcal Vaccine: 50+ Years Completed 11/24/2022, 08/02/2007 RSV Immunization Adult Patients Completed 12/16/2024 HIB Vaccines Aged Out No [...] fraction (CMS/HCC V24, CMS/HCC V28) Primary hypertension LIPID PANEL Routine 10/18/2024 8:03 AM EST COMPREHENSIVE METABOLIC PANEL Routine 10/17/2024 9:28 AM EST from Last 3 Months or Most Recently Relevant to Health Maintenance Results * ECG 12 lead (02/15/2025 1:51 PM EDT) Ventricular Rate ECG 74 BPM GEMUSE Atrial Rate 74 BPM GEMUSE P-R Interval 162 ms GEMUSE QRS Duration 122 ms GEMUSE Q-T Interval 398 ms GEMUSE QTc 441 ms GEMUSE R [place] -60 degrees GEMUSE T [place] 19 degrees GEMUSE ECG Interpretation Normal sinus rhythm with sinus arrhythmia Left anterior fascicular block Left ventricular hypertrophy with QRS widening Cannot rule out Septal infarct , age undetermined Abnormal ECG No previous ECGs available Confirmed by GABRIELA WHITTEN ([id number]) on 03/12/2025 5:25:10 PM GEMUSE 02/15/2025 1:51 PM EDT 03/12/2025 5:25 PM EDT Gabriela Whitten MD ECG ORDERABLES Final Result GEMUSE * (ABNORMAL) Lipid panel (10/18/2024 8:03 AM [...] - 10/18/2024 11:06 PM EST Performed at: 01 - [facility] [id number] Prn Occupational Therapist: Kelley Hughes MD, Phone: [phone] Michelle Arellano NP LAB BLOOD ORDERABLES Final [...] 44 - 121 IU/L [facility] 1 Aspartate aminotransferase (AST) 18 0 - 40 IU/L [facility] 1 Alanine Aminotransferase (ALT) 16 0 - 32 IU/L [facility] 1 10/17/2024 9:28 AM EST 10/17/2024 Narrative [facility] 1 - 10/18/2024 1:05 AM EST Performed at: 01 - [facility] [address] [id number] Prn Occupational Therapist: Kelley Hughes MD, Phone: [phone] Michelle Arellano NP LAB BLOOD ORDERABLES Final Result [facility] 1 from Last 3 Months or Most Recently Relevant to Health Maintenance Insurance [employer] Member Subscriber Plan / Payer (Ef fective 2022-Present) Name:Shi MicheleBozena Relation to Subscriber:Self Name:Bozena Osullivan Payer ID:[id number] Group ID:[id number] Type:Not on file Address: [place] [address] [address] [phone] Care Teams Materials Assistant Relationship Specialty Start Date End Date Carin Bolden NP [address] [place] [address] [place] [phone] PCP - General 11/07/21
== END 2025-04-25 11:42 | disposition home or self-care (01) ==
LOC: HO.ENCR 10:51
PROVIDERS: PCP Nurse Practitioner Primary Care; Visit Provider Internal Medicine Endocrinology, Diabetes & Metabolism
DX: E11.9 Type 2 diabetes mellitus without complications (principal)
CPT/HCPCS: 99214; G2211

== ENCOUNTER → 2025-04-25 10:51 | Outpatient (BNVA) | payer OTHER, SELFPAY | PROVIDERS: PCP Nurse Practitioner Primary Care; Visit Provider Internal Medicine Endocrinology, Diabetes & Metabolism | DX: E11.9 Type 2 diabetes mellitus without complications (principal); Z79.4 Long term (current) use of insulin | CPT/HCPCS: 82947; 83036; 99212 ==

== ENCOUNTER 2025-06-06 10:23 | Outpatient (AMB) | payer OTHER, SELFPAY ==
--- OUTSIDE RECORDS SUMMARY | 2025-03-25 05:00 | XMS_ITS ---
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 Phone Migration, Provider Unavailable [phone] REASON FOR VISIT EMR-Edgar Encounters Encounter Location [place] [address] [phone] 03/25/2025 Provider Migration Plan Of Treatment Medication Medication Name Sig Start Date Stop Date Notes Trulicity Route: subcutaneous Frequency: ONCE A WEEK(VOUCHER) Take: 0.5 ml 06/08/2019 07/14/2019 Status: Taking Original Code: [address]-67 Brand: Trulicity *Pick strength-form from [employer] for eRX* True Metrix Meter Route: in vitro Frequency: 2 times a day Take: as directed Quantity: 1 03/20/2021 03/20/2021 Status: Stop Origin al Code: 8528-733860 Brand: True Metrix Meter Aspirin Adult Low Dose 81 MG Route: Orally Frequency: Once a day Take: 1 tablet Oral 07/05/2021 07/05/2021 Status: Taking Original Code: [address]-44 Brand: Aspir-81 Soliqua 100-33 UNT-MCG/ML Route: once daily Frequency: once daily Take: 25 units at breakfast Subcutaneous 06/12/2020 06/12/2020 Status: Taking Original Code: [address]-57 Brand: Soliqua TRUE METRIX Route: in vitro Frequency: twice a day Take: strips Quantity: 200 09/02/2019 09/05/2019 Status: Taking Original Code: [id number] Brand: TRUE METRIX GLUCOSE TEST STRIP Gen: blood sugar diagnostic *Reorder from [employer] for eRx and Interaction Alerts* True Metrix Blood Glucose Test Route: In Vitro Frequency: three times a day Take: as directed Quantity: 300 05/24/2020 05/24/2020 Status: Refill Original Code: 8528-115128 Brand: True Metrix Blood Glucose Test *Pick strength-form from [employer] for eRX* Insulin Syringes (Disposable) Route: in vitro Frequency: twice a day Take: as directed 01/24/2020 01/24/2020 Status: Stop Brand: Insulin Syringes (Disposable) Lancets 30G Route: in vitro Frequency: 4 per day Take: as directed Quantity: 360 05/24/2020 05/24/2020 Status: Taking Original Code: [id number] Brand: LANCETS Gen: lancets [place] 01/27 Route: subcutaneos Frequency: once a day Take: as directed Quantity: 90 07/11/2020 07/11/2020 Status: Discontinued Original Code: 32083989207 Brand: PEN NEEDLES Gen: pen needle, diabetic CVS Probiotic - Route: Orally Frequency: Every 8 hours Take: 1 capsule Quantity: 45 Capsule Oral 02/26/2020 03/12/2020 Status: Taking Original Code: [address]-32 Brand: CVS Probiotic Spironolactone 25 MG Route: Orally Frequency: Once a day Take: 1/2 tablet Oral 07/05/2021 07/05/2021 Status: Taking Original Code: [id number] Brand: SPIRONOLACTONE Gen: spironolactone Sulfamethoxazole-Trime thoprim 800-160 MG Route: Oral Take: TAKE 1 TABLET BY MOUTH TWICE DAILY Quantity: 28 Oral 05/30/2021 05/30/2021 Status: Unknown Original Code: 92037209919 Brand: SULFAMETHOXAZOLE-TRIM ETHOPRIM Gen: sulfamethoxazole/trim ethoprim Terbinafine HCl Route: Orally Frequency: Once a day Take: 1 tablet Quantity: 10 03/12/2021 03/22/2021 Status: Taking Original Code: [address]-49 Brand: Terbinafine HCl *Pick strength-form from [employer] for eRX* Vancomycin HCl in Dextrose 500-5 MG/100ML Route: IVPB Frequency: q24 hours Take: 1500mg/DSW 250 ml Intravenous 04/10/2021 04/10/2021 Status: Unknown Original Code: [address]-76 Brand: Vancomycin HCl in Dextrose Insulin Syringe Route: subcutaneous Frequency: twice a day Take: as directed Quantity: 60 01/24/2020 01/24/2020 Status: Taking Original Code: [id number] Brand: INSULIN SYRINGE Gen: syringe and needle,insulin,1mL Sertraline HCl 50 MG Route: Orally Frequency: Once a day Take: 1 tablet Oral 03/26/2021 03/26/2021 Status: Taking Original Code: [address]-35 Brand: Sertraline HCl Silver sulfADIAZINE Route: Externally Frequency: Once a day Take: 1 application to affected area Quantity: 25 Gram 05/31/2019 06/05/2019 Status: Taking Original Code: [address]-28 Brand: Silver sulfADIAZINE *Pick strength-form from [employer] for eRX* Yeftelbw-Iyvukrnju-Imy ameth 0.1 % Route: Ophthalmic Frequency: Four times a day Take: 1 drop into both eyes Quantity: 1 Bottle Ophthalmic 04/16/2021 04/16/2021 Status: Unknown Original Code: [address]-87 Brand: Zdmzbxco-Hvasybffd-Mi xameth NovoLIN 70/30 (70-30) 100 UNIT/ML Route: Subcutaneous Frequency: three time all day Take: 20 units Quantity: 1800 Subcutaneous 05/25/2019 05/25/2019 Status: Discontinued Original Code: [address]-85 Brand: NovoLIN 70/30 Santyl 250 UNIT/GM Route: External Take: APPLY OINTMENT TOPICALLY ONCE DAILY Quantity: 90 g External 07/05/2021 07/05/2021 Status: Unknown Original Code: [id number] Brand: SANTYL Gen: collagenase Clostridium hist. Mupirocin 2 % Route: Externally Frequency: twice daily Take: 1 application Quantity: 1 External 02/18/2020 02/25/2020 Status: Taking Original Code: [address]-12 Brand: Mupirocin Levothyroxine Sodium 150 MCG Route: Orally Frequency: Once a day Take: 1 tablet on an empty stomach in the morning Quantity: 90 Oral 07/05/2021 07/05/2021 Status: Unknown Original Code: [address]-62 Brand: Levothyroxine Sodium Loratadine 10 MG Route: Orally Frequency: Once a day Take: 1 tablet Quantity: 30 Oral 06/28/2021 07/28/2021 Status: Taking Original Code: [address]-27 Brand: Loratadine Losartan Potassium-HCTZ 100-25 MG Route: Orally Frequency: Once a day Take: 1 tablet Oral 11/22/2019 11/22/2019 Status: Shahzad Baron l Code: [address]-16 Brand: Losartan Potassium-HCTZ metFORMIN HCl 1000 MG Route: Orally Frequency: TWICE a day Take: 1 tablet with a meal Oral 03/14/2019 03/14/2019 Status: Taking Original Code: [address]-06 Brand: metFORMIN HCl Ketoconazole Route: Externally Frequency: bi weekly Take: 1 application to scalp as needed Quantity: 1 07/26/2019 07/26/2019 Status: Unknown Original Code: 63055931208 Brand: KETOCONAZOLE Gen: ketoconazole *Pick strength-form from [employer] for eRX* Lantus 100 UNIT/ML Route: Subcutaneous Take: 50 units am and 30 units pm Subcutaneous 07/10/2020 07/10/2020 Status: Shahzad Baron l Code: [address]-93 Brand: Lantus levoFLOXacin 500 MG Route: Orally Frequency: Once a day Take: 1 tablet Quantity: 10 Oral 02/26/2020 03/07/2020 Status: Taking Original Code: [address]-61 Brand: levoFLOXacin HumaLOG 100 UNIT/ML Route: Subcutaneous Frequency: tid Take: 10 u 15 minutes around meals Injection 02/21/2020 02/21/2020 Status: Discontinued Original Code: [address]-78 Brand: HumaLOG Irbesartan-hydroCHLORO thiazide 300-12.5 MG Route: Orally Frequency: Once a day Take: 1 tablet Oral 11/22/2019 11/22/2019 Status: Taking Original Code: [address]-15 Brand: Irbesartan-hydroCHLOR Othiazide Gentamicin Sulfate 0.1 % Route: Externally to right 3rd toe lesion Frequency: once a day Take: 1 application on left 3rd toe once daily External 04/10/2021 04/10/2021 Status: Taking Original Code: [address]-20 Brand: Gentamicin Sulfate Glimepiride 4 MG Route: Orally Frequency: Once a day Take: 1 tablet with lunch Oral 03/14/2019 03/14/2019 Status: Discontinued Original Code: 62640437624 Brand: GLIMEPIRIDE Gen: glimepiride Fluticasone Propionate 50 MCG/ACT Route: Nasally Frequency: Once a day Take: 1 spray in each nostril Quantity: 1 Bottle Nasal 06/28/2021 06/28/2021 Status: Taking Original Code: [address]-53 Brand: Fluticasone Propionate Furosemide 20 MG Route: Orally Frequency: Once a day Take: 1 tablet Oral 07/05/2021 07/05/2021 Status: Taking Original Code: [address]-91 Brand: Furosemide Gabapentin Route: Orally Frequency: Once a day Take: 1 capsule Quantity: 90 Capsule 08/29/2019 08/29/2019 Status: Discontinue d Original Code: [address]-30 Brand: Gabapentin *Pick strength-form from [employer] for eRX* Clobetasol Propionate 0.05 % Route: Externally Frequency: Twice a day Take: 1 application to affected area Quantity: 1 External 08/29/2019 08/29/2019 Status: Unknown Original Code: [address]-11 Brand: Clobetasol Propionate Clopidogrel Bisulfate Route: Orally Frequency: Once a day Take: 1 tablet 07/05/2021 07/05/2021 Status: Taking Original Code: [address]-87 Brand: Clopidogrel Bisulfate *Pick strength-form from [employer] for eRX* Diclofenac Sodium 1 % Route: Transdermal Frequency: Twice a day Take: 1 application to affected area Quantity: 100 External 03/14/2019 06/10/2019 Status: Discontinued Original Code: [address]-64 Brand: Diclofenac Sodium Doxycycline Hyclate 100 MG Route: Orally Frequency: Twice a day Take: 1 tablet Oral 04/10/2021 05/03/2021 Status: Taking Original Code: [address]-17 Brand: Doxycycline Hyclate Ciprofloxacin HCl 500 MG Route: Orally Frequency: every 12 hrs Take: 1 tablet Quantity: 14 Tablet Oral 06/28/2021 07/05/2021 Status: Taking Original Code: [address]-57 Brand: Ciprofloxacin HCl Carvedilol 6.25 MG Route: Orally Frequency: two times a day Take: 1 tablet Oral 07/05/2021 07/05/2021 Status: Taking Original Code: [address]-24 Brand: Carvedilol Cefepime HCl 2 GM Route: Intravenous Frequency: every 12 hrs Take: 50 ml Intravenous 04/10/2021 04/10/2021 Status: Unknown Original Code: [address]-43 Brand: Cefepime HCl Cephalexin 500 MG Route: Orally Frequency: every 12 hrs Take: 1 capsule Quantity: 20 Oral 02/21/2020 03/02/2020 Status: Discontinued Original Code: [address]-60 Brand: Cephalexin Amoxicillin 500 MG Route: Orally Frequency: every 12 hrs Take: 1 capsule Quantity: 20 Oral 02/18/2020 02/28/2020 Status: Discontinued Original Code: [address]-87 Brand: Amoxicillin Atorvastatin Calcium 20 MG Route: Orally Frequency: Once a day Take: 1 tablet Quantity: 90 Tablet Oral 07/05/2021 07/05/2021 Status: Unknown Original Code: [address]-14 Brand: Atorvastatin Calcium Progress Notes * Bozena GUPAT NDOB:1955 (69 yo F)Acc No.[id number]:03/25/2025 Patient: Deonna YBARRA Bozena GALLEGO N :1955 A ge:69 Y S ex:Female Phone: Address:[address] [place] [address], [place], [address] * Refills Stop Amoxicillin Capsule, 500 MG, [...] daily Take: 1 application Quantity: 1 Stop Shsdxbow-Gjlztnlom-Bxhzzoat Suspension, 0.1 %, Ophthalmic, 1, Route: Ophthalmic [...] Take: as directed Quantity: 360 Stop [place] 5/16 , 90, Route: subcutaneos Frequency: once [...]
--- OUTSIDE RECORDS SUMMARY | 2025-03-26 05:00 | XMS_ITS ---
Author Organization Franco Cerda e [facility] Address [address] [phone] Care Team Providers Care Medical Examiner Name Role Phone Migration, Provider Unavailable [phone] REASON FOR VISIT [facility] [place] Encounters Encounter Location Date Provider Diagnosis Franco Floresate [facility] [address] [id number] 03/26/2025 Provider Migration Plan Of Treatment No Information Progress Notes * Bozena BARKER NDOB:1955 (69 yo F)Acc No.[id number]:03/26/2025 Patient: Deonna BELLTO Bozena N :1955 A ge:69 Y S ex:Female Phone: Address:[place], [address] Subjective: * Chief Complaints: * E MR-Edgar [...]
--- NOTE | 2025-06-06 10:36 | A.OFFVIS_ITS ---
Vital Signs 06/06/25 11:22 Height 5 ft 7 in Weight 200 lb 9.93 oz BMI 31.4 BP 118/58 L Blood Pressure Location Rt brachial Position Sitting Pulse 73 Pulse Source Pulse Oximeter Pulse Oximetry (%) 96 Oxygen Delivery Method Room Air Intake Visit Reasons: Type 2 DM Intake Note: Patient present today to follow up on Type 2 Diabetes Mellitus. Patient received Dexcom G7 supplies through: [employer] Last Diabetic Eye exam: 10/2024, patient will be making another appt this year due to excessive tearing of the eyes Last Podiatry Visit: Approx 3 months ago, Dr. Caputo Random Glucose: 126 mg/dL HgA1C: 7.8% 04/25/2025 Airplane Dispatch Clerk Required: Yes Airplane Dispatch Clerk Language: Service Center Technician Services: Airplane Dispatch Clerk Offered & Declined Accompanied by: Self / Same As Patient Allergies No Known Allergies Allergy (Verified 04/25/25 10:58) Medication List - Last Reconciled 06/06/25 by RAINER Cottrell alpha lipoic acid 300 mg PO BID alum-mag hydroxide-simeth 400-400-40 mg/5 mL (Mylanta Maximum Strength) 5 mL PO QID PRN aspirin 1 tab PO DAILY baclofen 10 mg PO BEDTIME PRN blood sugar diagnostic (FreeStyle Lite Strips) As directed 3 times a day blood-glucose meter (FreeStyle Lite Meter kit) As directed carvedilol 1 tab PO DAILY gabapentin 600 mg (2 x 300 mg) PO BEDTIME insulin aspart U-100 (Novolog FlexPen U-100 Insulin aspart) 32 units before breakfast, 32 units before lunch 30 units before supper subcutaneously 3 times a day; insulin degludec (Tresiba FlexTouch U-200 insulin) 42 units subcut BEDTIME levothyroxine 137 mcg PO DAILY linaclotide (Linzess) 290 mcg PO QAM melatonin 1 tab PO BEDTIME PRN metoclopramide HCl (Reglan) 5 mg PO QIDACHS multivitamin with folic acid 400 mcg (Daily-Fidelia (with folic acid)) 1 tab PO DAILY pantoprazole 40 mg PO BID rosuvastatin 20 mg PO BEDTIME rosuvastatin 40 mg PO DAILY sacubitril-valsartan 97-103 mg (Entresto) 1 tab PO DAILY spironolactone 25 mg PO DAILY Synjardy XR 10-1,000 mg (empagliflozin-metformin) 2 tabs (2 x 10-1,000 mg) PO DAILY 30 days NS tirzepatide (Mounjaro) 10 mg (0.5 mL) subcut QWEEK HPI Comments Details: This is a 69-year-old female with a past medical history of obstructive sleep apnea, hypertension, type 2 diabetes, GERD and gastroparesis presenting for diabetic management. This is my 1st visit with the patient. She saw my colleague on 04/25/2025. She was diagnosed with type 2 diabetes around 2004. She has a family history of type 2 diabetes in her brothers and sisters. Hemoglobin A1c 7.8% 04/25/2025 Reviewed Dexcom data G VT 7.4% 6% very high 31% high 63% in range 0% low She has a pattern of hyperglycemia manager strategic (sometimes around 3 or 4 am) and after breakfast and lunch. Complications: Retinopathy, neuropathy, nephropathy and CAD. She has hyperlipidemia, on a statin. Current regimen: NovoLog 30 units before meals (eats 3 times daily), Tresiba 40 units at bedtime, Synjardy 10-1000 mg 2 tablets daily, Mounjaro 10 mg weekly. She requests to change to trish 3 plus because the dexcom is causing a lot of skin irritation and redness which is painful. Denies fevers and chills. Sees Podiatry. She has chronic pain which limits her ability to exercise. ROS: Constitutional: No fevers or chills Respiratory: No shortness of breath Cardiovascular: No chest pain Gastrointestinal: No vomiting or abdominal pain. Denies anorexia. Neurologic: No headache, dizziness, syncope Hematologic/Lymphatics: No bleeding or bruising. No painful lymph nodes. Skin: No rash or itching. Endocrine: No cold or heat intolerance. No polyuria or polydipsia. Physical exam: Constitutional: Alert, in no distress. Neck: Supple, Full range of motion. No lymphadenopathy. No palpable thyroid masses. Respiratory: Clear to auscultation. Cardiovascular: S1 S2 regular. No murmurs. Psychiatric: Normal mood and affect [facility] Medical History Vertigo Cervicalgia Restless legs syndrome (RLS) Neuropathy Palpitations CAD (coronary artery disease) Depression High cholesterol Celiac disease HTN (hypertension) Hypothyroid Insulin dependent type 1 diabetes mellitus Surgical History H/O bilateral breast reduction surgery History of carpal tunnel release of both wrists History of section H/O abdominoplasty Hx of colonoscopy History of arthroplasty of left knee H/O heart artery stent Family History Mother Diabetes High blood pressure Father Diabetes High blood pressure Paternal Aunt Bone cancer Sister Breast cancer Sister Lymph node cancer Social History Household Members: None Housing: Apartment Are you a primary respiratory care assistant to a significant other at home: No Do you presently have visiting nurse or other home services: No Alcohol intake: never Patient Tobacco Use Status: Never used Tobacco service: No Current occupational status: disabled Physical Exam Vital Signs: Last Vital Signs Pulse 73 06/06/25 11:22 BP 118/58 L 06/06/25 11:22 Pulse Ox 96 06/06/25 11:22 Oxygen Delivery Method Room Air 06/06/25 11:22 BMI result Body Mass Index 31.4 Office Procedures Glucose Monitoring Details Details: See HPI 53579 - Glucose monitoring, continuous-physician I&R Procedure code (CPT) selection complete Results Reviewed Results Reviewed: Laboratory Last Values Glucose (Clinic) 126 mg/dL (60-115) H 06/06/25 11:25 Laboratory Tests 12/16/24 01/16/25 10:12 10:05 Creatinine 0.86 Estimated GFR > 60 AST 28 ALT 20 Triglycerides 122 Cholesterol 125 LDL Cholesterol, Calc 57 HDL Cholesterol 44 Vitamin B12 437 TSH 1.44 Assessment & Plan Assessment & Plan (1) Type 2 diabetes mellitus: Code(s): E11.9 - Type 2 diabetes mellitus without complications Category: Medical Qualifiers: 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 Continue Moujaro 10 mg weekly. We deferred increasing the dose due to her history of gastroparesis. Increase Novolog to 32 units before breakfast and lunch and continue 30 units before dinner Increase Tesiba to 42 units at bedtime Continue Synjardy 2 tablets daily If you experience low blood sugar, treat this by eating a chewable fruit candy like skittles or jelly beans (about 8 pieces), 4 ounces (1/2 cup) of fruit juice (not diet), 1 tablespoon of honey or 4 glucose tablets. If your blood sugar is under 50, take double the amount of one of the above. Recheck your blood sugar in 15 minutes. Patient will be switched from Dexcom to Trish 3 plus due to irritant reaction. In the meantime she can try cleansing with alcohol and allowing that to dry and then applying 1-2 sprays of Flonase and allowing that to dry before placing the sensor. Diabetic diet reviewed. Plan She is due for an A1c in July. She will follow up with me then. Orders: Orders AMB Glucose Monitoring Today RAINER Cottrell E11.9 - Type 2 diabetes mellitus without complications Medications: New blood-glucose,hvac sheet metal installer,cont (FreeStyle Trish 3 [place]) Use daily to monitor blood glucose levels continuously. 1 ea 0RF RAINER Cottrell E11.9 - Type 2 diabetes mellitus without complications, Z79.4 - assisted (current) use of insulin blood-glucose sensor (FreeStyle Trish 3 Plus Sensor device) Apply 1 new sensor every 15 days as directed to monitor blood glucose continuously. 2 ea 11RF RAINER Cottrell E11.9 - Type 2 diabetes mellitus without complications, Z79.4 - remote computer terminal operator (current) use of insulin Changed From insulin degludec (Tresiba FlexTouch U-200 insulin) 40 units (0.2 mL) subcut BEDTIME 30 days 6 mL 11RF E11.9 - Type 2 diabetes mellitus without complications To insulin degludec (Tresiba FlexTouch U-200 insulin) 42 units subcut BEDTIME E11.9 - Type 2 diabetes mellitus without complications Antoine Cho MD Patient Instructions: Continue Moujaro 10 mg weekly Novolog 32 units before breakfast and lunch and continue 30 units before dinner Increase Tesiba to 42 units at bedtime Continue Synjardy 2 tablets daily If you experience low blood sugar, treat this by eating a chewable fruit candy like skittles or jelly beans (about 8 pieces), 4 ounces (1/2 cup) of fruit juice (not diet), 1 tablespoon of honey or 4 glucose tablets. If your blood sugar is under 50, take double the amount of one of the above. Recheck your blood sugar in 15 minutes. Contin?e con Moujaro 10 mg semanalmente Novolog 32 unidades antes del desayuno y el almuerzo, y contin?e con 30 unidades antes de la nail mill worker Aumente la dosis de Tesiba a 42 unidades antes de acostarse Contin?e con Synjardy 2 comprimidos al d?a Si experimenta niveles bajos de az?car en marshal, tr?telo con un caramelo masticable de fruta nina Skittles o Jelly Beans (aproximadamente 8 piezas), 113 ml (1/2 taza) de jugo de fruta (no diet?annia), 1 cucharada de miel o 4 comprimidos de glucosa. Si alfred nivel de az?car en marshal es inferior a 50, tome el doble de la dosis de ry de los medicamentos mencionados anteriormente. Vuelva a medir alfred nivel de az?car en marshal en 15 minutos. 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
[2025-06-06 11:22] VITALS: BP 118/58; PULSE 73; O2SAT 96; BMI 31.4
[2025-06-06 11:30] LABS: Glucose, Whole Blood 126 mg/dL (60-115)
--- OUTSIDE RECORDS SUMMARY | 2025-06-06 12:40 | XMS_ITS | Patient Health Record ---
Author Organization [employer] Address [address] [place] [address] [place] [address] Care Team Providers Care Calender Machine Operator Name Role Phone Jenna Beebe Primary Care Provider Lou Dacosta Unavailable [phone] Reason For Referral No Information Medications Medication [...] Orally melvin y; Duration: 3 11/26/2018 Active Speed 3 1000 MG 1 capsule Orally Onc [...] Azithromycin 250 MG 2 tablets on the rst day, then 1 tablet daily for 4 days Orally Once a day; Duration: 5 day(s) 12/24/2018 Active Fluconazole 150 MG 1 tablet Orally Thre e times a Week; Duration: 10 day(s) 12/24/2018 Active Vitamin D (Ergocalciferol) 03066 UNIT 1 capsule Orally q weekly 07/17/2017 [...] Status Risk Notes Problem Diabetic renal disease (446034618) Type 2 diabetes mellitus with diabetic chronic kidney disease (E11.22) Active confirmed Problem Diabetic cataract associated with type II diabetes mellitus (946111370) 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) Active confirmed Problem Type 2 diabetes mellitus with peripheral angiopathy (868885253) Type 2 diabetes mellitus with diabetic peripheral angiopathy without gangrene (E11.51) Active confirmed Problem Type 2 diabetes mellitus with other specified complication (E11.69) Active confirmed Problem Mixed hyperlipidemia (642671672) Mixed hyperlipidemia (E78.2) Active confirmed Problem Rotator cuff arthropathy of left shoulder (disorder) (96926366781380660 ) Other specific arthropathies, not elsewhere classified, left shoulder (M12.812) Active confirmed Problem Nontraumatic rupture of muscle or tendon structure of rotator cuff of left shoulder (disorder) (7363111958730400) Unspecified rotator cuff tear or rupture of left shoulder, not specified as traumatic (M75.102) Active confirmed Problem Fibrocystic breast changes (68325845) Diffuse cystic mastopathy of right breast (N60.11) Active confirmed Problem Long-term current use of insulin (507939712) 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.4) Active confirmed Problem Chronic kidney disease stage 2 (204339343) Chronic kidney disease, stage II (mild) (N18.2) Active confirmed Problem Esophageal reflux (739544088) Esophageal reflux (K21.9) Active confirmed Problem Anxiety (31404909) Anxiety (F41.9) Active confi rmed Problem Hypothyroidism (60585983) Hypothyroidism (E03.9) Active confirmed Problem Obstructive sleep apnea (43700129) Obstructive sleep apnea (G47.33) Active confirmed Problem Tear film insufficiency (23549814) Dry eye (H04.129) Active confirmed Problem Localized, primary osteoarthritis of the shoulder region (846944820) Osteoarthritis of left shoulder, unspecified osteoarthritis type (M19.012) Active confirmed Problem Stricture of artery (23755274) 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) Active confirmed CXR 09/23/19 19 Problem Mood disorder (13463683) Mood disorder (F39) Active confirmed Problem Shoulder joint pain (320968079) Left shoulder pain, unspecified chronicity (M25.512) Active confirmed Problem Polyneuropathy due to type 2 diabetes mellitus (914923592) Type 2 diabetes mellitus with polyneuropathy (E11.42) Active confirmed Problem Esotropia (76815438) Esotropia (H50.00) Active confirmed Problem Mild nonproliferative retinopathy due to type 2 diabetes mellitus (785364177056854) Type 2 diabetes mellitus with mild nonproliferative diabetic retinopathy without macular edema, bilateral (E11.3293) Active confirmed Problem Hypertensive heart AND chronic kidney disease with congestive heart failure (30142567433101) Hypertensive heart and chronic kidney disease with heart failure and stage 1 through stage 4 chronic kidney disease, or chronic kidney disease (I13.0) Active confirmed Problem Pulmonary hypertension (08927654) Pulmonary hypertension (I27.20) Active confirmed ECHO 12/02/19 15 Problem Cervical spondylitis (009681412) Cervical spondylitis (M46.92) Active confirmed Problem Arthropathy of lumbar facet joint (100301374) Lumbar facet arthropathy (M46.96) Active confirmed MRI lumbar 4 Problem Homocysteine level above reference range (finding) (554370115967370) Homocysteinemia (E72.19) Active confirmed Problem Heart failure (99611839) CHF (NYHA class II, ACC/AHA stage C) (I50.9) Active confirmed EF 31% - 35% ECHO 12/03/19 18 Plan Of Treatment Pending Test Test Name Order Date MRI : Knee, left w/o contrast 10/02/2015 Abdominal Ultrasound 02/28/2013 Breasts, bilateral Ultrasound 02/20/2015 X ray : Shoulder, left 07/08/2017 X ray : Shoulder, left 07/17/2017 Echocardiogram 11/20/2017 Echocardiogram 11/28/2014 Mammogram Diagnostic 08/21/2015 DEXA Hip and Spine 01/05/2017 DEXA Hip and Spine 01/24/2014 DEXA 04/05/2013 Venous Doppler/Dupplex Bilateral Lower U /S 12/25/2017 Carotid Ultrasound 12/25/2017 Chest X-ray PA and lateral 12/25/2016 Chest X-ray PA and lateral 05/08/2014 Chest X-ray PA and lateral 2017 EKG Electrocardiogram 11/20/2017 EKG Electrocardiogram 06/09/2017 EKG Electrocardiogram 10/02/2015 EKG Electrocardiogram 11/28/2014 EKG Electrocardiogram 06/06/2014 Urinalysis, Complete 04/05/2013 TSH+Free T4 08/15/2013 Mammogram [...] BACTERIA 12/17/2018 HEMOGLOBIN A1C-Q 01/16/2016 HEMOGLOBIN A1C-Q 08/21/2015 HEMOGLOBIN A1C-Q 10/02/2015 URINALYSIS, COMPLETE 07/15/2013 CBC (INCLUDES DIFF/PLT) 04/05/2013 MICROALBUMIN, RANDOM URINE (W/CREATININE ) 07/15/2013 MICROALBUMIN, RANDOM URINE (W/CREATININE ) 10/02/2015 MICROALBUMIN, RANDOM URINE (W/CREATININE ) 01/16/2016 MICROALBUMIN, RANDOM URINE (W/CREATININE ) 03/24/2016 MICROALBUMIN, RANDOM URINE (W/CREATININE ) 02/08/2019 LIPID PANEL 04/05/2013 SED RATE BY MODIFIED WESTERGREN 04/17/20 14 YPRG-0-PJDNNUVBXNGPB 05/08/2014 TSH, 3RD GENERATION-Q 07/15/2013 HIV AB, HIV 1/2, EIA, WITH REFLEXES 03/15 Liver/Spleen Ultrasound 12/29/2013 DO NOT USE THIS ORDER Mammogram Diagnost ic w Breast Ultrasound Bilateral 02/04/2017 Homocysteine, Plasma 02/08/2019 Urinalysis, Routine-LC 02/08/2019 Lipid Panel-Q-LC 02/08/2019 Lipid Panel-Q-LC 04/16/2018 Lipid Panel-Q-LC 09/05/2014 Lipid Panel-Q-LC 12/05/2013 Comprehensive Metabolic Panel (14) 02/08 Comprehensive Metabolic Panel 14+eGFR-LC -Q 04/16/2018 Comprehensive Metabolic Panel 14+eGFR-LC -Q 12/05/2013 Comprehensive Metabolic Panel 14+eGFR-LC -Q 07/15/2013 Comprehensive Metabolic Panel 14+eGFR-LC -Q 12/05/2014 Urinalysis, Zackvdpi-OU-X 12/05/2013 Urinalysis, Eoudzidg-WC-W 04/16/2018 GlycoMark(R)(1,5 AG)-LC 12/05/2013 Vitamin D 25-Hydroxy, D2 + D3-LC 016 Uric Acid, Serum-LC 12/05/2013 TSH-LC 09/05/2014 CBC With Differential/Pjdhkfco-JN-S 11/13 CBC With Differential/Ptsrgcbb-HZ-D 11/2017 CBC With Differential/Qwfaftik-LI-N 01/13 C-Reactive Protein (CRP)-LC 04/17/2014 C3 Complement, Serum 04/17/2014 Hemoglobin A1C 12/05/2013 Hemoglobin A1C 12/05/2014 Hemoglobin A1C 10/01/2018 Hemoglobin A1C 02/08/2019 Urine Culture, Routine-LC 12/24/2018 Microalbumin/Creatinine Ratio, Random [...] Insured Coverage Start Date Coverage End Date [facility] [address] [address] [place] [phone] [id number] VANESSA BARKER Self - patient is the insured [facility] MEDICAID [address] [place], [place] [id number] VANESSA BARKER Self - patient is the [...]
--- OUTSIDE RECORDS SUMMARY | 2025-06-06 12:40 | XMS_ITS | Patient Health Record ---
Author Organization [employer] [facility] [employer] [facility] Address [address] [id number] Care Team Providers Care Control Equipment Electrician Name Role Phone Migration, Provider Unavailable [phone] Reason For Referral No Information Encounters Encounter Location Date Provider Diagnosis [facility] [address] [phone] 03/25/2025 Provider Migration [facility] [address] [id number] 03/26/2025 Provider Migration Plan Of Treatment No Information Medications Administered Medication Instructions Date of Administration Dosage Notes Cyanocobalamin 06/16/2019 Cyanocobalamin 08/17/2019 Rocephin 02/18/2020 Rocephin 02/26/2020 Rocephin 02/27/2020 Rocephin 02/28/2020 Trulicity 05/25/2019 Trulicity 06/01/2019 Trulicity 06/09/2019 Trulicity 06/16/2019 Trulicity 06/23/2019 Trulicity 07/01/2019 Medical (General) History Surgical History Surgery Date(Month/Year) Sx_Procedure : BREATHING CAPACITY TEST 2 019 Sx_Procedure : ELECTROCARDIOGRAM COMPLET E 2018 Sx_Procedure : Vitamin b12 injection 201 9 Sx_Procedure : Inj mepivacaine HCL/10 ml 2018 Sx_Procedure : INJ TRIGGER POINT, 1/2 MU SCL 2018 Sx_Procedure : Lidocaine inj 2018 Sx_Procedure : LOWER EXTREMITY STUDY 202 0 Sx_Procedure : Quantiflo-Single Layer 20 20 Sx_Procedure : TTE W/DOPPLER COMPLETE 20 20 Sx_Procedure : X-RAY EXAM OF FOOT 2019 Sx_Procedure : EXTRACRANIAL BILAT STUDY 2019 Sx_Procedure : EXTREMITY STUDY 2019 Sx_Procedure : INFRARED THERAPY 2019 Sx_Procedure : Ceftriaxone sodium inj 20 20
--- OUTSIDE RECORDS SUMMARY | 2025-06-06 12:40 | XMS_ITS | Encounter Summary ---
Author Organization [employer] Address [address] [facility] 7t [place] [address] Care Team Providers Care Bridge Construction Inspector Name Role Phone Carin Bolden Primary Care Provider [phone] Encounter Details Date Type Department Care Team (Late st Contact Info) Description 07/22/2023 Abstract [facility] [address] [place], [place] [phone] Carin Bolden, ANP 230 [place], [place] [phone] Social History Tobacco Use Types Packs/Day Years [...] t he electric, gas, oil or water [employer] threatened to shut off services in your [...] Care Team (Late st Contact Info) Description 06/12/2025 3:15 PM EDT Office Visit [facility] [address] [place] [address] Carin Bolden ANP 230 [place] [address] documented as of this encounter Visit Diagnoses Not on filedocumented in this encounter Additional Health Concerns Assessment Noted Time PHQ-9 Depression Total Score: 14 023 2:16 PM EDT documented as of this encounter Care Teams Bridge Construction Inspector Relationship Specialty Start Date End Date Carin Bolden ANP [address] [place] [address] PCP - General Family Medicine 10/10/21 documented as of this encounter
--- OUTSIDE RECORDS SUMMARY | 2025-06-06 12:40 | XMS_ITS | Encounter Summary ---
Author Organization [employer] Address [address] [facility] 7t [place] [address] Care Team Providers Care Retail Service Technician Name Role Phone Carin Bolden JOSE CRUZ Primary Care Provider [phone] Encounter Details Date Type Department Care Team ([facility] st Contact Info) Description 06/19/2023 Abstract [facility] [address] [place], [place] [phone] Loree Chan Social History Tobacco Use Types [...] Description 06/12/2025 3:15 PM EDT Office Visit [facility] [address] [place] [address] Carin Bolden ANP 230 [place], [place] [phone] documented as of this encounter Procedures Procedure Name Priority Date/Time Associated Diagnosis Comments PAP/HPV Routine 11/25/2021 documented in this encounter Results * Pap Smear (11/25/2021) Pap Negative for intraephithelial lesion or malignancy Negative for intraephithelial lesion or malignancy, Other HPV Undetected us Historical Provider [facility] Edited Result - Final documented in this encounter Visit Diagnoses Not on filedocumented in this encounter Additional Health Concerns Assessment Noted Time PHQ-9 Depression Total Score: 14 023 2:16 PM EDT documented as of this encounter Care Teams Retail Service Technician Relationship Specialty Start Date End Date Carin Bolden ANP 230 [place] [address] PCP - General Family Medicine 10/10/21 documented as of this encounter
--- OUTSIDE RECORDS SUMMARY | 2025-06-06 12:40 | XMS_ITS | Encounter Summary ---
Author Organization [employer] Address [address] [facility] 7t [place] [address] Care Team Providers Care Boring Mill Set Up Operator Vertical Name Role Phone Carin Bolden Primary Care Provider [phone] Reason for Visit * Reason Comments Med Refill Encounter Details Date Type Department Care Team (Late st Contact Info) Description 08/28/2023 Refill [facility] 230 [place], [place] [phone] Carin Bolden ANP 230 [place], [place] [phone] Subacute cough Social History Tobacco Use Types [...] Description 06/12/2025 3:15 PM EDT Office Visit [facility] [address] [place] [address] Carin Bolden ANP 230 [place] [address] documented as of this encounter Visit Diagnoses Diagnosis Subacute cough documented in this encounter Additional Health Concerns Assessment Noted Time PHQ-9 Depression Total Score: 14 023 2:16 PM EDT documented as of this encounter Care Teams Boring Mill Set Up Operator Vertical Relationship Specialty Start Date End Date Carin Bolden ANP [address] [place] [address] PCP - General Family Medicine 10/10/21 documented as of this encounter
--- OUTSIDE RECORDS SUMMARY | 2025-06-06 12:40 | XMS_ITS | Encounter Summary ---
Author Organization [employer] Address [address] [facility] 7t [place] [address] Care Team Providers Care Furnace Packer Name Role Phone Carin Bolden Primary Care Provider [phone] Reason for Visit * Reason Onset Date Comments Appointment Request 03/22/2025 Encounter Details Date Type Department Care Team ([facility] st Contact Info) Description 03/22/2025 Telephone [facility] 230 [place], [place] [phone] Carin Bolden ANP 230 [place], [place] [phone] Appointment Request Social History Tobacco Use Types [...] pt calling in regards to Neuropathy appt, investigative writer attempted to schedule but did not find any30 min slot available documented in this encounter Plan of Treatment Upcoming Encounters Date Type Department Care Team (Late st Contact Info) Description 06/12/2025 3:15 PM EDT Office Visit [facility] 230 [place] [address] Carin Bolden ANP 230 [place] [address] documented as of this encounter Visit Diagnoses Not on filedocumented in this encounter Additional Health Concerns Assessment Noted Time PHQ-9 Depression Total Score: 14 025 1:36 PM EDT documented as of this encounter Care Teams Furnace Packer Relationship Specialty Start Date End Date Carin Bolden ANP 230 [place] [address] PCP - General Family Medicine 10/10/21 documented as of this encounter
--- OUTSIDE RECORDS SUMMARY | 2025-06-06 12:40 | XMS_ITS | Encounter Summary ---
Author Organization [employer] Address [address] [facility] 7t [place] [address] Care Team Providers Care Textile Supervisor Name Role Phone Carin Bolden Primary Care Provider [phone] Reason for Visit * Reason Comments Med Refill Encounter Details Date Type Department Care Team (Late st Contact Info) Description 12/19/2024 Refill [facility] 230 [place], [place] [phone] Carin Bolden ANP 230 [place], [place] [phone] Social History Tobacco Use Types Packs/Day Years [...] Description 06/12/2025 3:15 PM EDT Office Visit [facility] [address] [place] [address] Carin Bolden ANP 230 [place] [address] documented as of this encounter Visit Diagnoses Not on filedocumented in this encounter Additional Health Concerns Assessment Noted Time PHQ-9 Depression Total Score: 14 025 1:36 PM EDT documented as of this encounter Care Teams Textile Supervisor Relationship Specialty Start Date End Date Carin Bolden ANP [address] [place] [address] PCP - General Family Medicine 10/10/21 documented as of this encounter
--- OUTSIDE RECORDS SUMMARY | 2025-06-06 12:40 | XMS_ITS | Encounter Summary ---
Author Organization [employer] [facility] Address [address] [facility] 7t [place] [address] Care Team Providers Care Map Maker Name Role Phone Carin Bolden Primary Care Provider [phone] Reason for Visit * Reason Comments Med Refill Encounter Details Date Type Department Care Team (Late st Contact Info) Description 02/19/2023 Refill [facility] MEDICINE [address] [place] [phone] Valentina Escobedo MD [address] [place] [address] Social History Tobacco Use Types Packs/Day Years [...] Description 06/12/2025 3:15 PM EDT Office Visit [facility] [address] [place] [phone] Carin Bolden ANP 230 [place] [address] documented as of this encounter Visit Diagnoses Not on filedocumented in this encounter Care Teams Map Maker Relationship Specialty Start Date End Date Carin Bolden ANP [address] [place] [address] PCP - General Family Medicine 10/10/21 documented as of this encounter
--- OUTSIDE RECORDS SUMMARY | 2025-06-06 12:40 | XMS_ITS | Encounter Summary ---
Author Organization [employer] Address [address] [facility] 7t [place] [address] Care Team Providers Care Cabinet Finisher Name Role Phone Carin Bolden Primary Care Provider [phone] Reason for Visit * Reason Comments Med Refill Encounter Details Date Type Department Care Team (Late st Contact Info) Description 07/06/2024 Refill [facility] 230 [place], [place] [phone] Carin Bolden ANP 230 [place], [place] [phone] Social History Tobacco Use Types Packs/Day Years [...] Description 06/12/2025 3:15 PM EDT Office Visit [facility] 230 [place] [address] Carin Bolden ANP 230 [place] [address] documented as of this encounter Visit Diagnoses Not on filedocumented in this encounter Additional Health Concerns Assessment Noted Time PHQ-9 Depression Total Score: 8 02/26/20 24 10:46 AM EDT documented as of this encounter Care Teams Cabinet Finisher Relationship Specialty Start Date End Date Carin Bolden ANP [address] [place] [address] PCP - General Family Medicine 10/10/21 documented as of this encounter
--- OUTSIDE RECORDS SUMMARY | 2025-06-06 12:40 | XMS_ITS | Encounter Summary ---
Author Organization [facility] Address [address] [place] [address] Care Team Providers Care Nursing Clerk Name Role Phone Carin Bolden NP Primary Care Provider [phone] Reason for Referral * Consultation (Routine) - Pending Review Specialty Diagnoses / Procedures Referred By Faraz luna Referred To Contact Vascular Surgery Diagnoses Peripheral arterial disease ([facility] V24) Rob Melendez MD [address] [place] [address] [address] [place] [address] Phone: tel: fax: Kenneth Schrader MD [address] [facility] [address] [place] [address] Phone: tel: fax: Referral ID Status Reason Start Date Expiration Date Visits Requested Visits Authorized [id number] Pending Review Specialty Services Required 05/03/2025 05/03/2026 1 1 Reason for Visit * Reason Onset Date Comments Referral 05/03/2025 Vascular Encounter Details Date Type Department Care Team (Late st Contact Info) Description 05/03/2025 Telephone [facility] Cardiology [facility] Dr Rocha [facility] Dr [address] [place] [address] Rob Melendez MD [address] [place] [address] Dr [address] [place] [address] Social History Tobacco Use Types Packs/Day Years [...] on file documented as of this encounter Progress Notes * Poornima Vasquez MA - 05/04/2025 8:34 AM EDT Faxed over referral to Dr. Tolentino [facility] [phone]. * Rob Melendez MD - 05/03/2025 5:29 PM EDT Please refer the patient for an evaluation with Dr. Tolentino at the [facility] surgery service. Diagnosis: Peripheral arterial disease documented in this encounter Plan of Treatment Upcoming Encounters Date Type Department Care Team (Late st Contact Info) Description 07/21/2025 10:30 AM EST Consult Vascular Surgery - [place] [address] [place] [address] Jessica Randolph PA [address] [place] [address] Scheduled Referrals Name Type Priority Associated Diagnoses Order Schedule Ambulatory referral to Vascular Surgery Outpatient Referral Routine Peripheral arterial disease (CMS/HCC V24) 1 Occurrences starting 05/03/2025 until 05/03/2026 documented as of this encounter Visit Diagnoses Diagnosis Peripheral arterial disease (CMS/HCC V24)- Primary Unspecified peripheral vascular disease documented in this encounter Care Teams Nursing Clerk Relationship Specialty Start Date End Date Carin Bolden NP [address] [facility] 1 [place] [address] PCP - General 11/07/21 documented as of this encounter
--- OUTSIDE RECORDS SUMMARY | 2025-06-06 12:40 | XMS_ITS | Clinical Summary ---
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 4 Active tirzepatide (Mounjaro) 7.5 mg/0.5 mL [...] Units under the skin at bedtime. Active spironolactone (ALDACTONE) 25 mg tablet Take 0.5 tablets (12.5 mg total) by mouth every other day. 15 tablet 1 5 Active spironolactone (ALDACTONE) 25 mg tablet Take 0.5 Tablets by mouth every other day. 4 05/29/20 25 Discontinu ed(Reorder ) Hospital, Clinic, or Other Facility Administered Medication Ordered Dose Route Frequency Start Date End Date Status perflutren lipid microsphere (DEFINITY) 1.3 mL in sodium chloride 0.9% 8.7 mL injection 10 mL IV Once in imaging 05/31/2025 05/31/2025 End ed Active Problems Problem Noted Date Diagnosed Date Claudication ([facility] V24) 02/15/2025 Assessment & Plan (04/04/2025 [...] to the mid LAD in 2018 at [facility]. The patient had been reporting episodes of [...] every night. Depression 05/09/2010 DM (diabetes mellitus) ([facility] V24, [facility] V28 ) 05/09/2010 HTN (hypertension) 05/09/2010 [...] Encounters Date Type Department Care Team Description 05/31/2025 9:00 AM EDT Ancillary Procedure [facility] [address] [place] [address] Heart failure with reduced ejection fraction (CMS/HCC V24, CMS/HCC V28) 05/03/[address] [place] [address] Rob Melendez MD 05/02/[address] [place] [address] Rob Melendez MD 05/01/2025 12:00 PM EDT Ancillary Procedure [facility] [address] [place] [address] Claudication (CMS/HCC V24) from Last 3 Months Surgical History Surgery Date Site/Laterality Comments COLONOSCOPY 2006? PROCEDURE: CT COLONOSCOPY FLX DX W/COLLJ SPEC WHEN PFRMD ESOPHAGOGASTRODUODENOSCOPY 05/13/2010 PROCEDURE: CT EGD TRANSORAL BIOPSY SINGLE/MULTIPLE; COMMENT: Normal esophagus [...] History Medical History Date Comments Diabetes mellitus ([facility] V24, [facility] V28) DX:Diabetes mellitus (HCC) JEVON (obstructive [...] Sign Reading Time Taken Comments Blood Pressure 104/63 05/31/2025 9:59 AM EDT Pulse 79 02/15/2025 1:39 PM EDT Temperature - - Respiratory Rate - - Oxygen Saturation 95% 02/15/2025 1:39 PM EDT Inhaled Oxygen Concentration - - Weight 91.6 kg (202 lb) 05/31/2025 9:59 AM EDT Height 170.2 cm (5' 7 ) 05/31/2025 9:59 AM EDT Body Mass Index 31.64 05/31/2025 9:59 AM EDT Plan of Treatment Upcoming Encounters Date Type Department Care Team (Late st Contact Info) Description 07/21/2025 10:30 AM EST Consult Vascular Surgery - [place] [address] [place] [address] Jessica Randolph PA [address] [place] [address] Health Maintenance Due Date Last Done Comments [...] Diabetes: Annual Urine Albumin-Creatinine Ratio (uACR) 08/24/2022 Depression Screening 09/14/2024 COVID-19 Vaccine ( season) 2025 10/20/2023, 08/09/2022, 02/11/2022 Influenza Vaccine (#1) 2025 , 06/12/2023, 06/13/2022, Additional history exists Diabetes: Blood Sugar Control Test (HGBA1C) 10/27/2025 04/26/2025, 11/30/2024, 07/21/2024 Diabetes: Annual GFR (Glomerular Filtration [...] Procedure Name Priority Date/Time Associated Diagnosis Comments VAS US DUPLEX LOWER EXT ARTERIES BILAT WITH JASON Routine 05/01/2025 12:32 PM EDT Claudication ([facility] V24) LIPID PANEL Routine 10/18/2024 8:03 AM EST COMPREHENSIVE METABOLIC PANEL Routine 10/17/2024 9:28 AM EST from Last 3 Months or Most Recently Relevant to Health Maintenance Results * Vascular US duplex lower extremity arteries bilateral with JASON (05/01/2025 12:32 PM EDT) Left Dist External Iliac PSV 116 cm/s CV [facility] LAB Left Prox External Iliac PSV 117 cm/s CV [facility] Left AT dist sys PSV 103 cm/s CV [facility] Left AT mid sys PSV 67 cm/s CV VAS LAB Left AT prox sys PSV 80 cm/s CV VAS LAB Left VAULT ATTENDANT prox sys PSV 83 cm/s CV VAS LAB Left mid peroneal sys PSV 81 cm/s CV VAS LAB Left popliteal dist sys PSV 88 cm/s CV VAS LAB Left popliteal prox sys PSV 162 cm/s CV VAS LAB Left PT dist sys PSV 84 cm/s CV VAS LAB Left PT mid sys PSV 56 cm/s CV VAS LAB Left PT prox sys PSV 60 cm/s CV VAS LAB Left super femoral dist sys PSV 145 cm/s CV VAS LAB Left super femoral mid sys PSV 154 cm/s CV VAS LAB Left super femoral prox sys PSV 104 cm/s CV VAS LAB Right Dist External Iliac PSV 116 cm/s CV VAS LAB Right Prox External Iliac PSV 137 cm/s CV V[facility] LAB Right AT dist sys PSV 72 cm/s CV VAS LAB Right AT mid sys PSV 47 cm/s CV VAS LAB Right AT prox sys PSV 62 cm/s CV VAS LAB Right VAULT ATTENDANT prox sys PSV 131 cm/s CV VAS LAB Right mid peroneal sys PSV 55 cm/s CV VAS LAB Right popliteal dist sys PSV 256 cm/s CV VAS LAB Right popliteal prox sys PSV 171 cm/s CV VAS LAB Right PT dist sys PSV 82 cm/s CV VAS LAB Right PT mid sys PSV 112 cm/s CV VAS LAB Right PT prox sys PSV 132 cm/s CV VAS LAB Right super femoral dist sys PSV 141 cm/s CV VAS LAB Right super femoral mid sys PSV 173 cm/s CV V[facility] LAB Right super femoral prox sys PSV 111 cm/s CV V[facility] LAB Right profunda sys PSV 96 cm/s CV VAS LAB Left profunda sys PSV 93 cm/s CV [facility] LAB Left arm BP 124 mmHg CV [facility] Right posterior tibial 146 mmHg CV [facility] Right Dorsalis Pedis 147 mmHg CV [facility] Right JASON 1.19 CV VAS LAB Left posterior tibial 157 mmHg CV V[facility] Left Dorsalis Pedis 118 mmHg CV VAS LAB Left JASON 1.27 CV VAS LAB Anatomical Region Laterality Modality Vascular, Abdomen Ultrasound Narrative 05/02/2025 10:39 AM EDT Right: JASON 1.19. Normal amplitude PVR waveform at the ankle. No dicrotic notch. Slightly decreased amplitude PPG waveform. Multiphasic waveforms throughout the arterial tree. No significant inflow arterial occlusive disease. 20-49% superficial femoral artery stenosis 50-99% popliteal artery stenosis Three-vessel runoff in the calf with mild tibial arterial occlusive disease. Left: JASON 1.27. Normal amplitude PVR waveform at the ankle. No dicrotic notch. Slightly decreased amplitude PPG waveform. Multiphasic waveforms throughout the arterial tree. Mild inflow arterial occlusive disease. 20-49% superficial femoral artery stenosis 50-99% popliteal artery stenosis Three-vessel runoff in the calf with mild tibial arterial occlusive disease. Right JASON Right BP not done due to sensor. Left JASON Left BP= 124/54 Right Lower Arterial Duplex The distal external iliac artery has triphasic flow. The common femoral artery has triphasic flow. The profunda femoris artery has biphasic flow. The superficial femoral artery has biphasic flow. The popliteal artery has biphasic flow. The anterior tibial artery has biphasic flow. The posterior tibial artery has biphasic flow. The mid peroneal artery has biphasic flow. Left Lower Arterial Duplex The distal external iliac artery has biphasic flow. The common femoral artery has biphasic flow. The profunda femoris artery has biphasic flow. The superficial femoral artery has biphasic flow. The popliteal artery has biphasic flow. The anterior tibial artery has biphasic flow. The posterior tibial artery has biphasic flow. The mid peroneal artery has biphasic flow. Nailing Machine Operator Details A aaron scale, color and doppler analysis ultrasound was performed. During the study longitudinal views were obtained. Pulsed wave doppler was performed. Rob Melendez MD CV VASCULAR PROCEDURES Final Result * (ABNORMAL) Lipid panel (10/18/2024 8:03 AM [...] 11:06 PM EST Performed at: 01 - [facility] [address] [id number] Nurse Staff: Kelley Hughes MD, Phone: [phone] Michelle Arellano NP LAB BLOOD ORDERABLES Final [...] AM EST Performed at: 01 - [facility] [address] [id number] Nurse Staff: Kelley Hughes MD, Phone: [phone] Michelle Arellano NP LAB BLOOD ORDERABLES Final Result [facility] 1 from Last 3 Months or Most Recently Relevant to [place] [address] [facility] MEDIC[facility] Member Subscriber Plan / Payer (Ef fective 2022-Present) Name:Bozena Gupta Relation to Subscriber:Self Name:Bozena Osullivan Payer ID:[id number] Group ID:[id number] Type:Not on file Address: [facility] [address] [id number] Care Teams Ground Support Equipment Mechanic Relationship Specialty Start Date End Date Carin Bolden NP [address] [place] [phone] PCP - General 11/07/21
--- OUTSIDE RECORDS SUMMARY | 2025-06-06 12:41 | XMS_ITS | Clinical Summary ---
Author Organization [employer] Address [address] [facility] [address] [place] [address] Care Team Providers Care Mud Temperer Name Role Phone Kimi Justin BILLINGSLEY Primary Care Provider [phone] Allergies No known active allergies Medications * This document contains information received from the source organization and may not represent a complete record from that organization. Blood Pressure Monitoring (Omron 3 Series BP Monitor) device Check blood pressure on arm as directed 05/16/20 22 Active GaviLyte-G 236 g solution DRINK 240 mL orally every 10 minutes for 1 day; until fecal effluent is clear; do not exceed a total volume of 2,000 mL 04/22/20 22 Active Jardiance 25 MG Take 1 tablet by mouth every morning 11/20/19 23 Active Blood Glucose Monitoring Suppl (FreeStyle glucose monitoring) kit Use BID and more as needed. Dx type 2 diabetes 1 each 12/15/19 23 Active spironolactone (Aldactone) 25 MG tabletIndications: CHF Take 12.5 mg by mouth in the morning. 04/23/20 23 Active Entresto 97-103 MG tablet Take 1 tablet by mouth 2 times daily. Active gabapentin (Neurontin) 300 MG capsule Take 600 mg by mouth at bedtime. 12/26/19 23 Active Multiple Vitamin (Multivitamin) tablet TAKE ONE TABLET EVERY MORNING WITH FOOD 90 tablet 3 05/12/20 24 Active Almacone Double Strength 400-400-40 MG/5ML suspension TAKE FIVE ML BY MOUTH FOUR TIMES DAILY NEEDED 01/26/20 24 Active Tresiba FlexTouch 200 UNIT/ML injection INJECT 34 UNITS SUBCUTANEOUSLY AT BEDTIME 04/01/20 24 Active isosorbide mononitrate ER (Imdur) 30 MG 24 hr tablet Take 30 mg by mouth in the morning. 03/16/20 24 Active Xiidra 5 % solution PLACE ONE DROP IN EACH EYE TWICE DAILY 04/22/20 24 Active Linzess 290 MCG capsule Take 1 capsule by mouth in the morning. 04/13/20 24 Active metoclopramide (Reglan) 5 MG tablet TAKE ONE TABLET in the morning, at noon, in the evening, and at bedtime (BEFORE MEALS) 03/09/20 24 Active pantoprazole (ProtoNix) 40 MG EC tablet Take 40 mg by mouth 2 times daily. 04/13/20 24 Active melatonin 10 MG tablet Take 1 tablet by mouth at bedtime. Purchases [facility] Active Blood Glucose Monitoring Suppl (Outline Lite) w/Device kit Use to test blood sugar TID dx dm 1 kit 10/13/19 25 Active Aspirin Adult Low Strength 81 MG EC tabletIndications: Type 2 diabetes mellitus with hyperglycemia, with long-term current use of insulin (CMS/HCC) TAKE ONE TABLET EVERY MORNING 90 tablet 3 12/10/19 25 Active levothyroxine (Synthroid, Levoxyl) 137 MCG tabletIndications: Hypothyroidism, unspecified type TAKE ONE TABLET EVERY MORNING 90 tablet 1 12/10/19 25 Active Mounjaro 7.5 MG/0.5ML solution auto-injector Inject 7.5 mg under the skin every 7 (seven) days. 12/07/19 25 Active magnesium oxide (Mag-Ox) 400 mg tablet Take 1 tablet by mouth Once per day. Active Zinc Acetate, Oral, (ZINC ACETATE PO) Take 1 tablet by mouth Once per day. Active alpha tocopherol (Vitamin E) 400 units capsule Take 1 capsule by mouth Once per day. Active Collagen-Vitamin C-Biotin (COLLAGEN PO) Take 1 tablet by mouth Once per day. Active metFORMIN XR (Glucophage-XR) 500 MG 24 hr tabletIndications: Diabetic polyneuropathy associated with type 2 diabetes mellitus (CMS/HCC) TAKE TWO TABLETS TWICE DAILY IN THE MORNING AND EVENING WITH FOOD 360 tablet 1 12/20/19 25 Active rosuvastatin (Crestor) 40 MG tabletIndications: Diabetic polyneuropathy associated with type 2 diabetes mellitus (CMS/HCC),Heart failure with reduced ejection fraction (CMS/HCC) Take 1 tablet (40 mg) by mouth Once per day. 90 tablet 1 12/20/19 25 Active cetirizine (ZyrTEC) 10 MG tabletIndications: Rhinitis, unspecified type TAKE ONE TABLET BY MOUTH ONCE DAILY NEEDED FOR ALLERGY 30 tablet 1 02/18/20 25 Active lidocaine (Lidoderm) 5 % patchIndications:L ow back pain, unspecified back pain laterality, unspecified chronicity, unspecified whether sciatica present,Left knee pain, unspecified chronicity,Left hip pain Apply 1 patch topically Once per day. Remove & discard patch within 12 hours or as directed by MD. 30 patch 2 04/10/20 25 Active NovoLOG FLEXPEN 100 UNIT/ML penIndications:Typ e 2 diabetes mellitus with hyperlipidemia (CMS/HCC) ([facility]) INJECT 20 UNITS SUBCUTANEOUSLY BEFORE MEALS IF BG is >200. INJECT 30 UNITS BEFORE MEALS IF BG is >300 60 mL 5 04/14/20 25 Active Easy Touch Lancets 33G/Twist miscIndications:Ty pe 2 diabetes mellitus with hyperlipidemia (CMS/HCC) ([facility]) TEST BLOOD SUGAR THREE TIMES DAILY 100 each 04/14/20 25 Active Alcohol Swabs (Alcohol Prep) 70 % padsIndications:Ty pe 2 diabetes mellitus with hyperglycemia, with long-term current use of insulin ([facility]) USE ONCE DAILY 100 each 04/14/20 25 Active FREESTYLE LITE test stripIndications:T ype 2 diabetes mellitus with diabetic polyneuropathy, with long-term current use of insulin ([facility]) TEST BLOOD SUGAR THREE TIMES DAILY DIRECTED 100 strip 5 04/14/20 25 Active carvedilol (Coreg) 6.25 MG tabletIndications: Heart failure with reduced ejection fraction ([facility]) TAKE ONE TABLET IN THE MORNING AND EVENING 30 tablet 3 04/14/20 25 Active insulin pen needle (Easy Touch Pen [place]) 31G x 6 mm miscIndications:Ty pe 2 diabetes mellitus with diabetic polyneuropathy, with long-term current use of insulin ([facility]) USE THREE DAILY 100 each 04/14/20 25 Active Active Problems Problem Noted Date Diagnosed Date Left knee pain 04/10/2025 Left hip pain 04/10/2025 Lower back pain 04/10/2025 Assessment & Plan (04/10/2025 11:04 PM EDT): Chronic left leg pain reported to start in her left side of lumbar area, left knee and left hip ,states pain worsen after a fall that occurred a month ago when failed to see a hole on the floor and fell backward hitting her back, no hitting head States pain in left leg and back can be intense sometimes and worse w ambulation but also can be felt at rest ,thinks noted some mild swelling in left knee ,denies erythema nor increase skin temp Takes tylenol and sometimes NSAIDS Of note pt reports had left knee surgery in [place] in 2016,denies following here w any orthopedic sp On exam noted pain w left lower back palpation over paraspinal points and w left hip and knee motion ,no obvious swelling, erythema nor increase skin temp -pxed today lidoderm patches to alternate use in areas of pain -tylenol ok to use up to 1 gr Q 8 h and to take NSAIDS only for more intense pain but to avoid chronic use -referred today for lumbar, left hip and left knee XR-will inform pt w results -referred today to orthopedic in setting intense ongoing pain acute on chronic -will hold on back PT for now until r/o vertebral fracture -with result if neg fx will offer PT referral -apt w PCP 06/12/2025 schedule already GLENDY (generalized anxiety disorder) 12/16/2024 Neuropathy of [...] polypectomy versus endometrial biopsy On: TBD By: HOME DEMONSTRATION AGENT Anesthesia: General After careful review of patient's [...] 9:29 AM EST): Under the care of Radiology Rn Rob Thomason. Last seen 04/2023. Last ECHO [...] Coronary artery disease 08/17/2023 08/17/20 Overview (02/10/2024): Radiology Rn Dr. Thomason Baseline ECG: SR, possible prior [...] use of insulin 06/03/2012 08/17/2023 Overview (02/10/2024): [facility] [place] Metformin XR 500mg 2 tabs AM/PM Lantus 30 units daily NovoLog 30 units before meals (we have this as 20 units unless BG 300+) Jardiance 25mg mounjaro 7.5mg weekly (plan to increase to 10mg Spring 2023) On statin, ASA (pt has known CAD), ARB (entresto) Hypertension 06/03/2012 Assessment & Plan (11/19/2023 9:30 AM EST): Pt on Carvedilol once daily ( as per Radiology Rn) Once cleared by Cardiology the instruction is for patient to take her Carvedilol with a sip of water the morning of the procedure to prevent her BP from going up. Hypertriglyceridemia 06/03/2012 Hypothyroidism 06/03/2012 Obstructive sleep apnea syndrome 06/03/2012 Postmenopausal bleeding 06/03/2012 Resolved Problems Problem Noted Date Diagnosed Date Resolved Date Depression, recurrent 08/17/2023 08/17/20232024 Encounters Date Type Department Care Team Description 06/06/2025 Orders Only GENERIC EXTERNAL DATA DEPARTMENT Provider, Generic External Data 05/09/2025 Telephone [facility] MEDICINE [address] [place] [phone] Justin Lopez ANP image order 04/26/2025 3:30 PM EDT Office Visit [facility] MEDICINE [address] [place] [address] Justin Lopez ANP Type 2 diabetes mellitus with diabetic polyneuropathy, with long-term current use of insulin (CMS/HCC) (Primary Dx); Hypothyroidism, unspecified type; Closed fracture of left foot, sequela; Screening for osteoporosis; Low back pain radiating to left leg; Frequent falls 04/26/2025 Travel 04/25/[address] [address] Justin Lopez ANP CHART PREP 04/25/2025 Orders Only GENERIC EXTERNAL DATA DEPARTMENT Provider, Generic External Data 04/19/[address] [address] Justin Lopez ANP Durable Medical Equipment; Prior Authorization 04/14/[address] [phone] Justin Lopez ANP Type 2 diabetes mellitus with diabetic polyneuropathy, with long-term current use of insulin (CMS/HCC) 04/14/[address] [address] Justin Lopez ANP Type 2 diabetes mellitus with hyperlipidemia (CMS/HCC) (CMS/HCC); Type 2 diabetes mellitus with hyperglycemia, with long-term current use of insulin (CMS/HCC); Type 2 diabetes mellitus with diabetic polyneuropathy, with long-term current use of insulin (CMS/HCC); Heart failure with reduced ejection fraction (CMS/HCC) 04/14/2025 Refill [facility] PEDS [address] [place] [address] Justin Lopez ANP Heart failure with reduced ejection fraction (CMS/HCC) 04/12/[address] [address] Justin Lopez ANP Prior Authorization 04/11/2025 Orders Only [facility] WALK-IN CENTER [address] [place] [address] [phone] Savannah Arnold MD Low back pain, unspecified back pain laterality, unspecified chronicity, unspecified whether sciatica present (Primary Dx) 04/10/2025 1:15 PM EDT Office Visit [address] [address] Savannah Arnold MD Low back pain, unspecified back pain laterality, unspecified chronicity, unspecified whether sciatica present (Primary Dx); Left knee pain, unspecified chronicity; Left hip pain 04/10/2025 Results Follow-Up [address] [address] Savannah Arnold MD XR Lumbar Spine 2-3 Views, XR Hip 2 or 3 Views Left 04/10/2025 Travel 04/10/[address] [address] Justin Lopez ANP Nurse Triage 03/22/[address] [address] Justin Lopez ANP Returning Call 03/22/[address] [address] Justin Lopez ANP Appointment Request 03/22/[address] [address] Justin Lopez ANP May03/13/[address] [address] Justin Lopez ANP Durable Medical Equipment 03/07/[address] [address] Justin Lopez ANP Switch to tele from Last 3 Months Immunizations Immunization Administration Dates Next Due Hep B, adult [...] Answer Date Recorded Patient Health Questionnaire-9 Score 0 04/10/2025 Patient Health Questionnaire-9 Score 0 04/10/2025 Last PHQ-9: Questionnaire Data Not on file 0 04/10/2025 Housing Stability Answer Date Recorded What is your housing situation today? I have rena benites 04/10/[address] you li ve. Do you have problems with any of the following? None of the above 04/10/2025 Food Insecurity Answer Date Recorded Within the past 12 months, y ou worried that your food would run out before you got money to buy more: Never True 04/10/2025 Within the past 12 months,th e food you bought just didn't last and you didn't have enough money to get more: Never True Transportation Answer Date Recorded In the past 12 months, has l ack of transportation kept you from medical appts, meetings, work or from getting things needed for daily living? No 04/10/2025 Utilities Answer Date Recorded In the past 12 months, has t he electric, gas, oil or water company threatened to shut off services in your home? No 04/10/2025 Depression Answer Date Recorded Patient Health Questionnaire-2 Score 0 04/10/2025 Internet Access Answer Date Recorded Internet Access Q1 Yes 04/10/2025 Internet Access Q2 Not on file 04/10/2025 Comments No Sex and Gender Information Value Date Recorded Sex Assigned at Female 07/14/2022 10:18 AM EDT Legal Sex Female 10:18 AM EDT Gender Identity Female 07/14/2022 10:18 AM EDT Sexual Orientation Straight 07/14/2022 10 :18 AM EDT Last Filed Vital Signs Vital Sign Reading Time Taken Comments Blood Pressure 118/70 04/26/2025 3:43 PM EDT Pulse 74 04/26/2025 3:43 PM EDT Temperature 36.1 C (96.9 F) 04/10/2025 1:15 PM EDT Respiratory Rate 16 04/26/2025 3:43 PM EDT Oxygen Saturation 96% 04/10/2025 1:15 PM EDT Inhaled Oxygen Concentration - - Weight 91.6 kg (202 lb) 04/26/2025 3:43 PM EDT Height 170.2 cm (5' 7 ) 04/26/2025 3:43 PM EDT Body Mass Index 31.64 04/26/2025 3:43 PM EDT Plan of Treatment Upcoming Encounters Date Type Department Care Team (Late st Contact Info) Description 06/12/2025 3:15 PM EDT Office Visit [facility] MEDICINE [address] [place], [place] [phone] Justin Lopez, ANP [address] [place] [address] Health Maintenance Due Date Last Done Comments CT Colonography 1955 Dental X-Ray: Bitewings 1955 Dental X-Ray: Full Mouth 1955 FIT DNA/Cologuard 1955 FIT 1955 FOBT 1955 Sigmoidoscopy 1955 Eye Exam 1965 Hepatitis C Screening 1973 Zoster Vaccines (1 of 2) 2005 Dental Oral Exam 10/04/2023 04/02/2023 Dental Prophylaxis 10/04/2023 04/02/2023, 10/02/2022 Diabetes: Foot Exam 02/25/2025 02/26/2024, 02/26/2024, 02/26/2024, Additional history exists COVID-19 Vaccine ( season) 2025 10/20/2023, 08/09/2022, 02/11/2022 Influenza Vaccine (#1) 2025 , 06/12/2023, 06/13/2022, Additional history exists Diabetes: Hemoglobin A1C 07/27/2025 025, 11/30/2024, 07/21/2024, Additional history exists Mammogram 09/21/2025 09/21/2024, 04/2025, 09/18/2023, Additional history exists Diabetes: Urine Protein Screening 01/16/2026 01/16/2025, 11/30/2024, 10/26/2023, Additional history exists Lipid Panel 01/16/2026 01/16/2025, 11/12, 10/26/2023, Additional history exists Alcohol/Substance Use Screening 04/10/2026 04/10/2025 Depression Screening 04/10/2026 04/10/2025, 04/10/20 25 SDOH Screening 04/10/2026 04/10/2025 Tobacco Screening 04/26/2026 04/26/2025 HPV/Cotest 11/25/2026 11/25/2021, 11/12, 11/25/2021, Additional history exists Pap Smear 11/25/2026 11/25/2021, 10/08/2021 Colonoscopy 08/27/2027 08/27/2022 Colorectal Cancer Screening 08/27/2027 DTaP/Tdap/Td Vaccines (2 - Td or Tdap) 11/26/2031 11/25/2021, 08/14/2009 Hepatitis B Vaccines Completed 12/18/2009, 08/14/2009, 06/29/2009 Pneumococcal Vaccine: 50+ Years Completed 11/24/2022, 08/02/2007 RSV Patients and Patients Aged 60 years [...] Associated Diagnosis Comments GLUCOSE, WHOLE BLOOD Routine 06/06/2025 11:25 AM EDT POCT GLYCATED HEMOGLOBIN, TOTAL Routine 04/26/2025 3:45 PM EDT Type 2 diabetes mellitus with diabetic polyneuropathy, with long-term current use of insulin ([facility]) POCT GLUCOSE Routine 04/26/2025 3:44 PM EDT Type 2 diabetes mellitus with diabetic polyneuropathy, with long-term current use of insulin ([facility]) GLUCOSE, WHOLE BLOOD Routine 04/25/2025 11:07 AM EDT XR LUMBAR SPINE 2-3 VIEWS Routine 04/10/2025 1:54 PM EDT Low back pain, unspecified back pain laterality, unspecified chronicity, unspecified whether sciatica present XR HIP 2 OR 3 VIEWS LEFT Routine 04/10/2025 1:51 PM EDT Left hip pain XR KNEE 3 VIEWS LEFT Routine 04/10/2025 1:47 PM EDT Left knee pain, unspecified chronicity ALBUMIN, RANDOM URINE W/CREATININE Routine 01/16/2025 10:05 AM EDT LIPID PANEL, STANDARD Routine 01/16/2025 10:05 AM EDT BI MAMMOGRAM SCREENING TOMOSYNTHESIS BILATERAL Routine 09/21/2024 1:15 PM EST PROPHYLAXIS - ADULT Routine 04/02/2023 1 :00 PM EDT Encounter for dental examination PERIODIC ORAL EVALUATION - ESTABLISHED PATIENT Routine 04/02/2023 1:00 PM EDT HM COLONOSCOPY Routine 08/27/2022 HM PAP/HPV Routine 11/25/2021 from Last 3 Months or Most Recently Relevant to Health Maintenance Results * (ABNORMAL) Glucose, Whole Blood (06/06/2025 11:25 AM EDT) Only the most recent of2 resultswithin the time period is included. Glucose, Whole Blood 126(H) 60 - 115 mg/dL [facility] Comment:METER #: [id number] Testing performed in the Endocrinology Department [address] , [address], [facility]. 06/06/2025 11:2 5 AM EDT 06/06/2025 11:30 AM EDT [employer] External Data Provider LAB BLOOD ORDERAB LES Final Result Performing Organization Address City/State/[facility] Co de Phone Number [facility] [address] [place] [phone] * (ABNORMAL) POCT HGB A1C (04/26/2025 3:45 PM EDT) Hemoglobin A1C 7.5(A) 4.0 - 5.7 % QC Media Lot # [id number] Lot# Expiration Date , Blood 04/26/2025 3:45 PM EDT Justin BILLINGSLEY POINT OF CARE TEST ENTER/EDIT OR DERABLES Final Result * (ABNORMAL) POCT Glucose (04/26/2025 3:44 PM EDT) Glucose Blood, POC 274(A) 60 - 200 mg/dL QC Media Lot # [id number] Lot# Expiration Date , Blood Capillary blood specimen / Unknown 04/26/2025 3:44 PM EDT Justin BILLINGSLEY POINT OF CARE TEST ENTER/EDIT OR DERABLES Final Result * XR Lumbar Spine 2-3 Views (04/10/2025 1:54 PM EDT) Anatomical Region Laterality Modality Spine, L-spine Radiographic Reba ging 04/10/2025 1:54 PM EDT Narrative 04/10/2025 3:22 PM EDT [facility] [address] [place] [address] XRay Report Signed Patient: Bozena Gupta MR#: [id number] : 1955 Acct:[id number] Age/Sex: 69 / F ADM Date: 04/10/25 Loc: HO.HHCX Attending Dr: Savannah Scott MD Ordering Physician: Savannah Arnold MD Date of Service: 04/10/25 Procedure(s): XR lumbar spine 2-3V Accession Number(s): [id number] cc: Savannah Arnold MD; JUSTIN LOPEZ NP EXAMINATION: XR LUMBOSACRAL SPINE CLINICAL INFORMATION: pt w 3 weeks of ongoing lower back pain COMPARISON: None available. TECHNIQUE: Three views of the lumbosacral spine. FINDINGS: There are 5 nonrib-bearing lumbar segments. There is 11 degrees levoscoliosis. T12-L1: There is mild disc space narrowing and anterior osteophyte. L1-L2: There is mild disc space narrowing and anterior osteophytes. L2-L3: There is mild disc space narrowing and anterior osteophytes. L3-L4: There is moderate disc space narrowing, vacuum phenomena, anterior osteophytes, and subtle retrolisthesis. L4-L5: There is mild disc space narrowing with endplate sclerosis and osteophytes. There is facet sclerosis and osteophytes. L5-S1: There is mild disc space narrowing with endplate sclerosis and anterior spurs. There is facet sclerosis and osteophytes. XR/XR lumbar spine 2-3V IMPRESSION: Multilevel degenerative disc disease and facet arthropathy. Mild levoscoliosis. Electronically signed by: Kali Bruce MD 04/10/2025 03:19 PM EDT Dictated By: Kali Bruce MD Signed By: <Electronically signed by Kali Bruce MD in OV> 04/10/25 1519 DD/ 1354 TD/TT: 04/10/25 1400 Victims Advocate Clerk/Specialist: Procedure Note Donfarhanater, Image - 04/10/[address] [address] XRay Report Signed Patient: Bozena Gupta NMR#: [id number] : 1955cct:[id number] Age/Sex: 69 / FADM Date: 04/10/25 Loc: HO.HHCX Attending Dr: Savannah Scott MD Ordering Physician: Savannah Arnold MD Date of Service: 04/10/25 Procedure(s): XR lumbar spine 2-3V Accession Number(s): [id number] cc: Savannah Arnold MD; JUSTIN LOPEZ NP EXAMINATION: XR LUMBOSACRAL SPINE CLINICAL INFORMATION: pt w 3 weeks of ongoing lower back pain COMPARISON: None available. TECHNIQUE: Three views of the lumbosacral spine. FINDINGS: There are 5 nonrib-bearing lumbar segments. There is 11 degrees levoscoliosis. T12-L1: There is mild disc space narrowing and anterior osteophyte. L1-L2: There is mild disc space narrowing and anterior osteophytes. L2-L3: There is mild disc space narrowing and anterior osteophytes. L3-L4: There is moderate disc space narrowing, vacuum phenomena, anterior osteophytes, and subtle retrolisthesis. L4-L5: There is mild disc space narrowing with endplate sclerosis and osteophytes. There is facet sclerosis and osteophytes. L5-S1: There is mild disc space narrowing with endplate sclerosis and anterior spurs. There is facet sclerosis and osteophytes. XR/XR lumbar spine 2-3V IMPRESSION: Multilevel degenerative disc disease and facet arthropathy. Mild levoscoliosis. Electronically signed by: Kali Bruce MD 04/10/2025 03:19 PM EDT Dictated By: Kali Bruce MD Signed By: <Electronically signed by Kali Bruce MD in OV> 04/10/25 1519 DD/ 1354 TD/TT: 04/10/25 1400 Victims Advocate Clerk/Specialist: Savannah Scott MD IMG XR PROCEDURES Final Result * XR Hip 2 or 3 Views Left (04/10/2025 1:51 PM EDT) Anatomical Region Laterality Modality Lower Extremities, Hip Left Radiograp hic Imaging 04/10/2025 1:51 PM EDT Narrative 04/13/2025 8:52 AM EDT [facility] [address] [place] [address] XRay Report Signed Patient: Bozena Gupta MR#: [id number] : 1955 Acct:[id number] Age/Sex: 69 / F ADM Date: 04/10/25 Loc: HO.HHX Attending Dr: Savannah Scott MD Ordering Physician: Savannah Arnold MD Date of Service: 04/10/25 Procedure(s): XR hip LT min 2V Accession Number(s): [id number] cc: Savannah Arnold MD; JUSTIN LOPEZ NP EXAMINATION: XR HIP, LEFT CLINICAL INFORMATION: 3 weeks of worsening left hip pain COMPARISON: None available. TECHNIQUE: AP and frog-leg lateral views of the left hip. FINDINGS: Cardiac calcinosis is visible in the lateral hip labrum. There is mild axial joint space narrowing. There is linear calcific density in the fibers disc of the pubic symphysis joint. Multifocal enthesophytes are evident involving iliac spine, greater trochanter, and ischemia . There is mild degenerative change in the left SI joint. XR/XR hip LT min 2V IMPRESSION: CPPD disease. Mild secondary osteoarthritis left hip and left SI joint. Electronically signed by: Kali Bruce MD 04/10/2025 03:16 PM EDT Dictated By: Kali Bruce MD Signed By: <Electronically signed by Kali Bruce MD in OV> 04/10/25 1516 DD/ 1351 TD/TT: 04/10/25 1400 Victims Advocate Clerk/Specialist: Procedure Note Donotuseinterpreter, Image - 04/13/[address] [address] XRay Report Signed Patient: Bozena Gupta NMR#: [id number] : 6Acct:[id number] Age/Sex: 69 / FADM Date: 04/10/25 Loc: HO.HHCX Attending Dr: Savannah Scott MD Ordering Physician: Savannah Arnold MD Date of Service: 04/10/25 Procedure(s): XR hip LT min 2V Accession Number(s): [id number] cc: Savannah Arnold MD; JUSTIN LOPEZ NP EXAMINATION: XR HIP, LEFT CLINICAL INFORMATION: 3 weeks of worsening left hip pain COMPARISON: None available. TECHNIQUE: AP and frog-leg lateral views of the left hip. FINDINGS: Cardiac calcinosis is visible in the lateral hip labrum. There is mild axial joint space narrowing. There is linear calcific density in the fibers disc of the pubic symphysis joint. Multifocal enthesophytes are evident involving iliac spine, greater trochanter, and ischemia . There is mild degenerative change in the left SI joint. XR/XR hip LT min 2V IMPRESSION: CPPD disease. Mild secondary osteoarthritis left hip and left SI joint. Electronically signed by: Kali Bruce MD 04/10/2025 03:16 PM EDT Dictated By: Kali Bruce MD Signed By: <Electronically signed by Kali Bruce MD in OV> 04/10/25 1516 DD/ 1351 TD/TT: 04/10/25 1400 Victims Advocate Clerk/Specialist: us Savannah Scott MD IMG XR PROCEDURES Final Result * XR Knee 3 Views Left (04/10/2025 1:47 PM EDT) Anatomical Region Laterality Modality Lower Extremities, Knee Left Radiogra phic Imaging 04/10/2025 1:47 PM EDT Narrative 04/10/2025 3:18 PM EDT [address] [address] XRay Report Signed Patient: Bozena Gupta N MR#: [id number] : 1955 Acct:[id number] Age/Sex: 69 / F ADM Date: 04/10/25 Loc: HO.RAYOCX Attending Dr: Savannah Scott MD Ordering Physician: Savannah Arnold MD Date of Service: 04/10/25 Procedure(s): XR knee LT 3V Accession Number(s): [id number] cc: Savannah Arnold MD; JUTSIN LOPEZ NP EXAMINATION: XR KNEE, LEFT CLINICAL INFORMATION: 3 weeks of worsening left knee pain COMPARISON: None available. TECHNIQUE: Three views of the left knee. FINDINGS: There is mild narrowing of the medial clear space without narrowing of the lateral. There is probably a joint effusion. There is chondrocalcinosis involving the medial and lateral menisci. There are small marginal osteophytes involving the 3 joint compartment. Intercondylar tubercles are peaked. There is moderate vascular calcifications. 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 Borderline joint effusion. Electronically signed by: Kali Bruce MD 04/10/2025 03:14 PM EDT Dictated By: Kali Bruce MD Signed By: <Electronically signed by Kali Bruce MD in OV> 04/10/25 1514 DD/ 1347 TD/TT: 04/10/25 1400 Victims Advocate Clerk/Specialist: Procedure Note Donotuseinterpreter, Image - 04/10/[address] [address] XRay Report Signed Patient: Bozena Gupta NMR#: [id number] : 1955cct:[id number] Age/Sex: 69 / FADM Date: 04/10/25 Loc: HO.HHCX Attending Dr: Savannah Scott MD Ordering Physician: Savannah Arnold MD Date of Service: 04/10/25 Procedure(s): XR knee LT 3V Accession Number(s): [id number] cc: Savannah Arnold MD; JUSTIN LOPEZ NP EXAMINATION: XR KNEE, LEFT CLINICAL INFORMATION: 3 weeks of worsening left knee pain COMPARISON: None available. TECHNIQUE: Three views of the left knee. FINDINGS: There is mild narrowing of the medial clear space without narrowing of the lateral. There is probably a joint effusion. There is chondrocalcinosis involving the medial and lateral menisci. There are small marginal osteophytes involving the 3 joint compartment. Intercondylar tubercles are peaked. There is moderate vascular calcifications. 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 Borderline joint effusion. Electronically signed by: Kali Bruce MD 04/10/2025 03:14 PM EDT Dictated By: Kali Bruce MD Signed By: <Electronically signed by Kali Bruce MD in OV> 04/10/25 1514 DD/ 1347 TD/TT: 04/10/25 1400 Victims Advocate Clerk/Specialist: us Savannah Scott MD IMG XR PROCEDURES Final Result * (ABNORMAL) Albumin, Random Urine W/Creatinine (01/16/2025 10:05 AM EDT) Creatinine, Urine 59.94 mg/dL [facility] Microalbumin Urine 133.0 mg/L H [facility] Microalbum Creatinine Ratio Ur 221.8(H) <30 ug/mg cr [facility] Comment:Albumin/Creatinine R atio Reference Ranges: Normal: < 30 ug/mg creatinine Microalbuminuria: 30 - 300 ug/mg creatinineClinical Albuminuria: > 300 ug/mg creatinine 01/16/2025 10:0 5 AM EDT 01/16/2025 10:23 AM EDT us Generic External Data Provider LAB URINE ORDERAB LES Final Result Performing Organization Address [facility] Co de Phone Number [facility] [address] [place] [address] [phone] * Lipid Panel, Standard (01/16/2025 10:05 AM EDT) Triglycerides 122 <150 mg/dL [facility] Comment:Desirable Triglyceri de: less than 150 mg/dLBorderline High Triglyceride 150-199 mg/dLHigh Triglyceride: 200-499 mg/dLVery High Triglyceride: greater than or equal to 5OO mg/dL Cholesterol 125 <200 mg/dL [facility] Comment:Desirable Cholestero l: less than 200 mg/dLBorderline High Cholesterol: 200-239 mg/dLHigh Cholesterol: greater than 239 mg/dL LDL Cholesterol Calculated 57 <100 mg/dL [facility] Comment:Desirable LDL: less than 100 mg/dLNear Optimal/Above Optimal LDL: 110- 129 mg/dLBorderline High LDL: 130-159 mg/dLHigh LDL: 160-189 mg/dLVery High LDL: greater than or equal to 190 mg/dL HDL Cholesterol 44 >40 mg/dL [facility] Comment:Desirable HDL: great er than 40 mg/dL Note: This HDL assay may give artificially low results in patients with liver disease. 01/16/2025 10:0 5 AM EDT 01/16/2025 10:05 AM EDT Generic External Data Provider LAB BLOOD ORDERAB LES Final Result Performing Organization Address City/[facility]/ZIP Co de Phone Number [facility] [address] [place] [address] [phone] * BI Mammogram Screening Tomosynthesis Bilateral (09/21/2024 1:15 PM EST) Anatomical Region Laterality Modality Breast Bilateral Mammography 09/21/2024 1:15 PM EST Narrative 09/28/2024 8:33 AM EST [facility] [address] [place] [address] Mammography Report Signed Patient: Bozena Gupta MR#: [id number] : 1955 Acct:[id number] Age/Sex: 68 / F ADM Date: 09/21/24 Loc: MAMMO Attending Dr: Justin Lopez NP Ordering Physician: JUSTIN LOPEZ NP Results: 2Benign Wilian arce Date of Service: 09/21/24 Follow Up: 1 Year From Orig inal Mammogram Procedure(s): MM tomosynthesis screening BI Accession Number(s): [id number] cc: JUSTIN LOPEZ NP EXAMINATION: MM SCREENING [...] by: Izabel Suarez DO 09/28/2024 08:30 AM [facility] Dictated By: Izabel Suarez DO Signed By: <Electronically signed by Izabel Suarez DO in OV> 09/28/24 0830 DD/ 1315 TD/TT: 09/21/24 1329 Victims Advocate Clerk/Specialist: Procedure Note Donotuseinterpreter, Image - 09/28/2024 [facility] [address] [place] [address] Mammography Report Signed Patient: Bozena Gupta NMR#: [id number] : 1955cct:[id number] Age/Sex: 68 / FADM Date: 09/21/24 Loc: HO.MAMMO Attending Dr: Justin Lopez NP Ordering Physician: JUSTIN LOPEZ NPResults: 2Benign Wilian arce Date of Service: 09/21/24Follow Up: 1 Year From Orig inal Mammogram Procedure(s): MM tomosynthesis screening BI Accession Number(s): [id number] cc: JUSTIN LOPEZ NP EXAMINATION: MM SCREENING [...] 09/28/24 0830 DD/ 1315 TD/TT: 09/21/24 1329 Victims Advocate Clerk/Specialist: Justin Lopez ANP IMG BI PROCEDURES Final Result * Colonoscopy (08/27/2022) Colonoscopy Normal Normal Narrative Loree Chan - 08/27/2022 Repeat Colonoscopy in 5-6 years due to fair prep on left side or earlier if clinically indicated Historical Provider HEALTH MAINTENANCE Final Result * Pap Smear (11/25/2021) Pap Negative for intraephithelial lesion or malignancy Negative for intraephithelial lesion or malignancy, Other HPV Undetected us Historical Provider HEALTH MAINTENANCE Edited Result - Final from Last 3 Months or Most Recently Relevant to Health Maintenance Insurance [facility] [employer] (O D-SNP) RAINER MARCOS [id number] Care Teams Mud Temperer Relationship Specialty Start Date End Date Justin Lopez ANP [address] [place] [address] PCP - General Family Medicine 10/10/21
--- OUTSIDE RECORDS SUMMARY | 2025-06-06 12:41 | XMS_ITS | Encounter Summary ---
Author Organization [employer] [facility] Address [address] [facility] [address] [place] [address] Care Team Providers Care Copier Field Service Technician Name Role Phone Carin Bolden Primary Care Provider [phone] Encounter Details Date Type Department Care Team (Latest Contact Info) Description 02/17/2022 Abstract [facility] CONVERSIONS Dental, Provider, DDS Social History [...] Description 06/12/2025 3:15 PM EDT Office Visit [facility] MEDICINE [address] [place] [address] Carin Bolden ANP [address] [place] [address] documented as of this encounter Visit Diagnoses Not on filedocumented in this encounter Care Teams Copier Field Service Technician Relationship Specialty Start Date End Date Carin Bolden ANP [address] [place] [address] PCP - General Family Medicine 10/10/21 documented as of this encounter
--- OUTSIDE RECORDS SUMMARY | 2025-06-06 12:41 | XMS_ITS | Encounter Summary ---
Author Organization [facility] Address [address] [place] [address] 7[address] [place] [address] Care Team Providers Care Research Physician Name Role Phone Carin Bolden Primary Care Provider [phone] Encounter Details Date Type Department Care Team (Late st Contact Info) Description 08/11/2022 Abstract [facility] DENTAL [address] [place] [address] [phone] Dental, Provider, DDS Social History Tobacco Use [...] Description 06/12/2025 3:15 PM EDT Office Visit [facility] MEDICINE [address] [place], [place] [phone] Carin Bolden ANP [address] [place], [place] [phone] documented as of this encounter Procedures Procedure [...] on filedocumented in this encounter Care Teams Research Physician Relationship Specialty Start Date End Date Carin Bolden ANP [address] [place] [phone] PCP - General Family Medicine 10/10/21 documented as of this encounter
--- OUTSIDE RECORDS SUMMARY | 2025-06-06 12:41 | XMS_ITS | Encounter Summary ---
Author Organization [employer] Address [address] [facility] 7t [place] [address] Care Team Providers Care Product Lister Name Role Phone Carin Bolden JOSE CRUZ Primary Care Provider [phone] Reason for Visit * Reason Comments Med Refill Encounter Details Date Type Department Care Team (Late st Contact Info) Description 08/16/2024 Refill [facility] [address] [place], [place] [phone] Lori Bee MD [address] [place] [address] Carpal tunnel syndrome, unspecified laterality Social History [...] Description 06/12/2025 3:15 PM EDT Office Visit [facility] MEDICINE [address] [place] [address] Carin Bolden ANP [address] [place] [address] documented as of this encounter Visit Diagnoses Diagnosis Carpal tunnel syndrome, unspecified laterality documented in this encounter Additional Health Concerns Assessment Noted Time PHQ-9 Depression Total Score: 8 02/26/20 24 10:46 AM EDT documented as of this encounter Care Teams Product Lister Relationship Specialty Start Date End Date Carin Bolden ANP [address] [place] [address] PCP - General Family Medicine 10/10/21 documented as of this encounter
--- OUTSIDE RECORDS SUMMARY | 2025-06-06 12:41 | XMS_ITS | Encounter Summary ---
Author Organization [employer] Address [address] [facility] [address] [place] [address] Care Team Providers Care Asian Art Curator Name Role Phone Kimi Carin BILLINGSLEY Primary Care Provider [phone] Encounter Details Date Type Department Care Team (Late st Contact Info) Description 06/06/2025 Orders Only GENERIC EXTERNAL DATA [...] Description 06/12/2025 3:15 PM EDT Office Visit [facility] MEDICINE [address] [place] [address] Carin Bolden ANP [address] [place] [address] documented as of this encounter Procedures Procedure Name Priority Date/Time Associated Diagnosis Comments GLUCOSE, WHOLE BLOOD Routine 06/06/2025 11:25 AM EDT documented in this encounter Results * (ABNORMAL) Glucose, Whole Blood (06/06/2025 11:25 AM EDT) Glucose, Whole Blood 126(H) 60 - 115 mg/dL [facility] Comment:METER #: [id number] Testing performed in the Endocrinology Department [address] , [address], [facility]. 06/06/2025 11:2 5 AM EDT 06/06/2025 11:30 AM EDT us Generic External Data Provider LAB BLOOD ORDERAB LES Final Result [facility] [address] [place] [phone] [phone] documented in this encounter Visit Diagnoses Not on filedocumented in this encounter Additional Health Concerns Assessment Noted Time PHQ-9 Depression Total Score: 0 04/10/20 25 1:18 PM EDT documented as of this encounter Care Teams Asian Art Curator Relationship Specialty Start Date End Date Carin Bolden ANP [address] [place] [address] PCP - General Family Medicine 10/10/21 documented as of this encounter
== END 2025-06-06 12:05 | disposition home or self-care (01) ==
LOC: HO.ENCR 10:24
PROVIDERS: PCP Nurse Practitioner Primary Care; Visit Provider Physician Assistant Medical
DX: E11.42 Type 2 diabetes mellitus with diabetic polyneuropathy (principal); Z79.4 Long term (current) use of insulin

== ENCOUNTER 2025-06-06 10:23 | Outpatient (AMB) | payer OTHER, SELFPAY ==
--- NOTE | 2025-06-06 10:49 | MHC.AMDMED ---
Intake Intake Visit Reasons: T2DM Resident Care Assistant Required: Yes Resident Care Assistant Language: Perinatal Social Worker Name: Maddie Conti Accompanied by: Self / Same As Patient Allergies No Known Allergies Allergy (Verified 04/25/25 10:58) HPI Comprehensive Diabetes Asmnt Most Recent Diabetes Results: Microalb/Creat Ratio, (<30) 221.8 ug/mg cr H 01/16/25 Cholesterol, (<200) 125 mg/dL 01/16/25 HDL Cholesterol, (>40) 44 mg/dL 01/16/25 Triglycerides, (<150) 122 mg/dL 01/16/25 Creatinine, (0.5-1.4) 0.86 mg/dL 01/16/25 BUN, (9-16) 29 mg/dL H 01/16/25 Sodium, (135-145) 138 mmol/L 01/16/25 Potassium, (3.3-5.1) 4.7 mmol/L 01/16/25 Chloride, (96-108) 105 mmol/L 01/16/25 Carbon Dioxide, (22-29) 26 mmol/L 01/16/25 Calcium, (8.4-10.2) 9.7 mg/dL 01/16/25 AST, (5-31) 28 U/L 12/16/24 ALT, (0-31) 20 U/L 12/16/24 Total Protein, (6.5-8.0) 7.4 g/dL 12/16/24 Albumin, (3.5-5.0) 4.1 g/dL 12/16/24 [facility] Medical History Vertigo Cervicalgia Restless legs syndrome (RLS) Neuropathy Palpitations CAD (coronary artery disease) Depression High cholesterol Celiac disease HTN (hypertension) Hypothyroid Insulin dependent type 1 diabetes mellitus Surgical History H/O bilateral breast reduction surgery History of carpal tunnel release of both wrists History of section H/O abdominoplasty Hx of colonoscopy History of arthroplasty of left knee H/O heart artery stent Family History Mother Diabetes High blood pressure Father Diabetes High blood pressure Paternal Aunt Bone cancer Sister Breast cancer Sister Lymph node cancer Social History Household Members: None Housing: Apartment Are you a primary intensive care unit nurse to a significant other at home: No Do you presently have visiting nurse or other home services: No Alcohol intake: never Patient Tobacco Use Status: Never used Tobacco service: No Current occupational status: disabled Assessment & Plan Assessment & Plan (1) Type 2 diabetes mellitus: Code(s): E11.9 - Type 2 diabetes mellitus without complications Plan: Personal Continuous Glucose Monitor: Patients CGM information reviewed, Pt uses Dexcom G7 with reader, at today's visit we tried to download Dexcom G7 osmani on patient's smart phone. Patient did not have strong cell service within the building. Instructed patient if she downloads the osmani at home she can log into her Dexcom account. When she logs into the account on the osmani, she can enter in current sensor code. This will connect Dexcom G7 sensor to smart phone. She has difficulty she can call [employer] customer service in request Ukrainian-speaking customer account specialist Patches since last A1c on 04/25/2025 7.8%. Patient reports she is under a lot of stress due to family issues and chronic pain in her left leg. Reviewed the following: Hypoglycemia and Hyperglycemia Signs and symptoms? Causes?? Treatment? Preventing hypoglycemia? When to seek medical attention Target Goals: Blood glucose targets and how you feel when your blood glucose is in and out of your target ranges. Monitoring and knowing your A1C. What can make blood glucose go up and down and preventing high and low blood glucose. Review of blood sugar targets in expected goal range and outside of expected goal range. Problem solving and preventing hyper/hypoglycemia. Sick day management of diabetes. Using blood sugar results in decision making process in managing diabetes. ?Patient was receptive to information provided and participated in the discussion. Asked?appropriate questions and demonstrated good understanding of the topics discussed.? ? Patient able to insert sensor independently at home without issue.? Portions of this note were created using voice recognition software, please excuse any words or phrases that may have been misinterpreted. Patient Instructions: Follow-up with public health educator in 3 months Coding Level of Care Code Est Pt Level 1 (21621) Diagnoses Type 2 diabetes mellitus E11.9
== END 2025-06-06 12:07 | disposition home or self-care (01) ==
LOC: HO.ENCR 10:24
PROVIDERS: PCP Nurse Practitioner Primary Care; Visit Provider Registered Nurse Diabetes Educator
DX: E11.9 Type 2 diabetes mellitus without complications (principal)

== ENCOUNTER → 2025-06-06 10:23 | Outpatient (BNVA) | payer OTHER, SELFPAY | PROVIDERS: PCP Nurse Practitioner Primary Care; Visit Provider Physician Assistant Medical | DX: E11.42 Type 2 diabetes mellitus with diabetic polyneuropathy (principal); Z79.4 Long term (current) use of insulin | CPT/HCPCS: 82947; 99211; 99212 ==

== ENCOUNTER 2025-06-19 11:01 | Outpatient (AMB) | payer OTHER, SELFPAY ==
--- OUTSIDE RECORDS SUMMARY | 2025-03-25 05:00 | XMS_ITS ---
Author Organization Franco Floresat e [facility] Address [address] [id number] Care Team Providers Care Chart Changer Name Role Phone Migration, Provider Unavailable [phone] REASON FOR VISIT [facility] Encounters Encounter Location [place] [address] [phone] 03/25/2025 Provider Migration Plan Of Treatment Medication Medication Name Sig Start Date Stop Date Notes Trulicity Route: subcutaneous Frequency: ONCE A WEEK(VOUCHER) Take: 0.5 ml 06/08/2019 07/14/2019 Status: Taking Original Code: [address]-10 Brand: Trulicity *Pick strength-form from [employer] for eRX* True Metrix Meter Route: in vitro Frequency: 2 times a day Take: as directed Quantity: 1 03/20/2021 03/20/2021 Status: Stop Origin al Code: 8528-651152 Brand: True Metrix Meter Aspirin Adult Low Dose 81 MG Route: Orally Frequency: Once a day Take: 1 tablet Oral 07/05/2021 07/05/2021 Status: Taking Original Code: [address]-82 Brand: Aspir-81 Soliqua 100-33 UNT-MCG/ML Route: once daily Frequency: once daily Take: 25 units at breakfast Subcutaneous 06/12/2020 06/12/2020 Status: Taking Original Code: [address]-62 Brand: Soliqua TRUE METRIX Route: in vitro Frequency: twice a day Take: strips Quantity: 200 09/02/2019 09/05/2019 Status: Taking Original Code: [id number] Brand: TRUE METRIX GLUCOSE TEST STRIP Gen: blood sugar diagnostic *Reorder from [employer] for eRx and Interaction Alerts* True Metrix Blood Glucose Test Route: In Vitro Frequency: three times a day Take: as directed Quantity: 300 05/24/2020 05/24/2020 Status: Refill Original Code: 8528-764630 Brand: True Metrix Blood Glucose Test *Pick strength-form from [employer] for eRX* Insulin Syringes (Disposable) Route: in vitro Frequency: twice a day Take: as directed 01/24/2020 01/24/2020 Status: Stop Brand: Insulin Syringes (Disposable) Lancets 30G Route: in vitro Frequency: 4 per day Take: as directed Quantity: 360 05/24/2020 05/24/2020 Status: Taking Original Code: [id number] Brand: LANCETS Gen: lancets Pen [place] 01/27 Route: subcutaneos Frequency: once a day Take: as directed Quantity: 90 07/11/2020 07/11/2020 Status: Discontinued Original Code: [id number] Brand: PEN NEEDLES Gen: pen needle, diabetic CVS Probiotic - Route: Orally Frequency: Every 8 hours Take: 1 capsule Quantity: 45 Capsule Oral 02/26/2020 03/12/2020 Status: Taking Original Code: [address]-70 Brand: CVS Probiotic Spironolactone 25 MG Route: Orally Frequency: Once a day Take: 1/2 tablet Oral 07/05/2021 07/05/2021 Status: Taking Original Code: [id number] Brand: SPIRONOLACTONE Gen: spironolactone Sulfamethoxazole-Trime thoprim 800-160 MG Route: Oral Take: TAKE 1 TABLET BY MOUTH TWICE DAILY Quantity: 28 Oral 05/30/2021 05/30/2021 Status: Unknown Original Code: [id number] Brand: SULFAMETHOXAZOLE-TRIM ETHOPRIM Gen: sulfamethoxazole/trim ethoprim Terbinafine HCl Route: Orally Frequency: Once a day Take: 1 tablet Quantity: 10 03/12/2021 03/22/2021 Status: Taking Original Code: [address]-66 Brand: Terbinafine HCl *Pick strength-form from [employer] for eRX* Vancomycin HCl in Dextrose 500-5 MG/100ML Route: IVPB Frequency: q24 hours Take: 1500mg/DSW 250 ml Intravenous 04/10/2021 04/10/2021 Status: Unknown Original Code: [address]-60 Brand: Vancomycin HCl in Dextrose Insulin Syringe Route: subcutaneous Frequency: twice a day Take: as directed Quantity: 60 01/24/2020 01/24/2020 Status: Taking Original Code: [id number] Brand: INSULIN SYRINGE Gen: syringe and needle,insulin,1mL Sertraline HCl 50 MG Route: Orally Frequency: Once a day Take: 1 tablet Oral 03/26/2021 03/26/2021 Status: Taking Original Code: [address]-64 Brand: Sertraline HCl Silver sulfADIAZINE Route: Externally Frequency: Once a day Take: 1 application to affected area Quantity: 25 Gram 05/31/2019 06/05/2019 Status: Taking Original Code: [address]-73 Brand: Silver sulfADIAZINE *Pick strength-form from [employer] for eRX* Cpsftovv-Gtnwkisid-Gcu ameth 0.1 % Route: Ophthalmic Frequency: Four times a day Take: 1 drop into both eyes Quantity: 1 Bottle Ophthalmic 04/16/2021 04/16/2021 Status: Unknown Original Code: [address]-19 Brand: Ezwchmmb-Tgyelvtym-Hm xameth NovoLIN 70/30 (70-30) 100 UNIT/ML Route: Subcutaneous Frequency: three time all day Take: 20 units Quantity: 1800 Subcutaneous 05/25/2019 05/25/2019 Status: Discontinued Original Code: [address]-11 Brand: NovoLIN 70/30 Santyl 250 UNIT/GM Route: External Take: APPLY OINTMENT TOPICALLY ONCE DAILY Quantity: 90 g External 07/05/2021 07/05/2021 Status: Unknown Original Code: [id number] Brand: SANTYL Gen: collagenase Clostridium hist. Mupirocin 2 % Route: Externally Frequency: twice daily Take: 1 application Quantity: 1 External 02/18/2020 02/25/2020 Status: Taking Original Code: [address]-57 Brand: Mupirocin Levothyroxine Sodium 150 MCG Route: Orally Frequency: Once a day Take: 1 tablet on an empty stomach in the morning Quantity: 90 Oral 07/05/2021 07/05/2021 Status: Unknown Original Code: [address]-17 Brand: Levothyroxine Sodium Loratadine 10 MG Route: Orally Frequency: Once a day Take: 1 tablet Quantity: 30 Oral 06/28/2021 07/28/2021 Status: Taking Original Code: [address]-99 Brand: Loratadine Losartan Potassium-HCTZ 100-25 MG Route: Orally Frequency: Once a day Take: 1 tablet Oral 11/22/2019 11/22/2019 Status: Shahzad Baron l Code: [address]-70 Brand: Losartan Potassium-HCTZ metFORMIN HCl 1000 MG Route: Orally Frequency: TWICE a day Take: 1 tablet with a meal Oral 03/14/2019 03/14/2019 Status: Taking Original Code: [address]-93 Brand: metFORMIN HCl Ketoconazole Route: Externally Frequency: bi weekly Take: 1 application to scalp as needed Quantity: 1 07/26/2019 07/26/2019 Status: Unknown Original Code: 57198580236 Brand: KETOCONAZOLE Gen: ketoconazole *Pick strength-form from [employer] for eRX* Lantus 100 UNIT/ML Route: Subcutaneous Take: 50 units am and 30 units pm Subcutaneous 07/10/2020 07/10/2020 Status: Shahzad Baron l Code: [address]-63 Brand: Lantus levoFLOXacin 500 MG Route: Orally Frequency: Once a day Take: 1 tablet Quantity: 10 Oral 02/26/2020 03/07/2020 Status: Taking Original Code: [address]-02 Brand: levoFLOXacin HumaLOG 100 UNIT/ML Route: Subcutaneous Frequency: tid Take: 10 u 15 minutes around meals Injection 02/21/2020 02/21/2020 Status: Discontinued Original Code: [address]-89 Brand: HumaLOG Irbesartan-hydroCHLORO thiazide 300-12.5 MG Route: Orally Frequency: Once a day Take: 1 tablet Oral 11/22/2019 11/22/2019 Status: Taking Original Code: [address]-13 Brand: Irbesartan-hydroCHLOR Othiazide Gentamicin Sulfate 0.1 % Route: Externally to right 3rd toe lesion Frequency: once a day Take: 1 application on left 3rd toe once daily External 04/10/2021 04/10/2021 Status: Taking Original Code: [address]-20 Brand: Gentamicin Sulfate Glimepiride 4 MG Route: Orally Frequency: Once a day Take: 1 tablet with lunch Oral 03/14/2019 03/14/2019 Status: Discontinued Original Code: 62774620374 Brand: GLIMEPIRIDE Gen: glimepiride Fluticasone Propionate 50 MCG/ACT Route: Nasally Frequency: Once a day Take: 1 spray in each nostril Quantity: 1 Bottle Nasal 06/28/2021 06/28/2021 Status: Taking Original Code: [address]-99 Brand: Fluticasone Propionate Furosemide 20 MG Route: Orally Frequency: Once a day Take: 1 tablet Oral 07/05/2021 07/05/2021 Status: Taking Original Code: [address]-05 Brand: Furosemide Gabapentin Route: Orally Frequency: Once a day Take: 1 capsule Quantity: 90 Capsule 08/29/2019 08/29/2019 Status: Discontinue d Original Code: [address]-62 Brand: Gabapentin *Pick strength-form from [employer] for eRX* Clobetasol Propionate 0.05 % Route: Externally Frequency: Twice a day Take: 1 application to affected area Quantity: 1 External 08/29/2019 08/29/2019 Status: Unknown Original Code: [address]-45 Brand: Clobetasol Propionate Clopidogrel Bisulfate Route: Orally Frequency: Once a day Take: 1 tablet 07/05/2021 07/05/2021 Status: Taking Original Code: [address]-98 Brand: Clopidogrel Bisulfate *Pick strength-form from [employer] for eRX* Diclofenac Sodium 1 % Route: Transdermal Frequency: Twice a day Take: 1 application to affected area Quantity: 100 External 03/14/2019 06/10/2019 Status: Discontinued Original Code: [address]-27 Brand: Diclofenac Sodium Doxycycline Hyclate 100 MG Route: Orally Frequency: Twice a day Take: 1 tablet Oral 04/10/2021 05/03/2021 Status: Taking Original Code: [address]-68 Brand: Doxycycline Hyclate Ciprofloxacin HCl 500 MG Route: Orally Frequency: every 12 hrs Take: 1 tablet Quantity: 14 Tablet Oral 06/28/2021 07/05/2021 Status: Taking Original Code: [address]-47 Brand: Ciprofloxacin HCl Carvedilol 6.25 MG Route: Orally Frequency: two times a day Take: 1 tablet Oral 07/05/2021 07/05/2021 Status: Taking Original Code: [address]-43 Brand: Carvedilol Cefepime HCl 2 GM Route: Intravenous Frequency: every 12 hrs Take: 50 ml Intravenous 04/10/2021 04/10/2021 Status: Unknown Original Code: [address]-08 Brand: Cefepime HCl Cephalexin 500 MG Route: Orally Frequency: every 12 hrs Take: 1 capsule Quantity: 20 Oral 02/21/2020 03/02/2020 Status: Discontinued Original Code: [address]-50 Brand: Cephalexin Amoxicillin 500 MG Route: Orally Frequency: every 12 hrs Take: 1 capsule Quantity: 20 Oral 02/18/2020 02/28/2020 Status: Discontinued Original Code: [address]-77 Brand: Amoxicillin Atorvastatin Calcium 20 MG Route: Orally Frequency: Once a day Take: 1 tablet Quantity: 90 Tablet Oral 07/05/2021 07/05/2021 Status: Unknown Original Code: [address]-09 Brand: Atorvastatin Calcium Progress Notes * Bozena GUPTA NDOB:1955 (69 yo F)Acc No.[id number]:03/25/2025 Patient: Deonna YBARRA Bozena GALLEGO N :1955 A ge:69 Y S ex:Female Phone: Address:[address] [place] [address], [place], [address] * Refills Stop Amoxicillin Capsule, 500 MG, [...] daily Take: 1 application Quantity: 1 Stop Wshjzkkr-Kzdtrlwtt-Svbjlmkx Suspension, 0.1 %, Ophthalmic, 1, Route: Ophthalmic [...] Take: as directed Quantity: 360 Stop Pen [place] 5/16 , 90, Route: subcutaneos Frequency: once [...]
--- OUTSIDE RECORDS SUMMARY | 2025-03-26 05:00 | XMS_ITS ---
Author Organization Franco Cerda e [facility] Address [address] [phone] Care Team Providers Care X Ray Tech Name Role Phone Migration, Provider Unavailable [phone] REASON FOR VISIT [facility] [place] Location Date Provider Diagnosis Franco Flores[place] [facility] [address] [phone] 03/26/2025 Provider Migration Plan Of Treatment No Information Progress Notes * Bozena BARKER NDOB:1955 (69 yo F)Acc No.[id number]:03/26/2025 Patient: Deonna BELLTO Bozena N :1955 A ge:69 Y S ex:Female Phone: Address:[place], [address] Subjective: * Chief Complaints: * E MR-Edgar [...]
--- NOTE | 2025-06-19 11:06 | MHC.OFFVIS ---
Vital Signs 06/19/25 11:12 Height 5 ft 7 in Weight 200 lb BMI 31.3 Intake Visit Reasons: Breast pain Varnish Mixer Required: Yes Varnish Mixer Language: Windows Desktop Support Services: Varnish Mixer Present (in person) Varnish Mixer Name: Emely SUAZO Information Interpreted: non-clinical & clinical Shale Miner Blasting: Shale Miner Blasting Present (Emely SUAZO) Accompanied by: Self / Same As Patient Allergies No Known Allergies Allergy (Verified 06/19/25 11:13) HPI Comments Details: Presenting complaining of it breast pain last 2 months no nipple discharge no an other symptoms. Last screening mammogram in 10/08 was BI-RADS 2 [facility] Medical History Type II diabetes with intermission coordinator use of insulin Vertigo Cervicalgia Restless legs syndrome (RLS) Neuropathy Palpitations CAD (coronary artery disease) Depression High cholesterol Celiac disease HTN (hypertension) Hypothyroid Insulin dependent type 1 diabetes mellitus Surgical History H/O bilateral breast reduction surgery History of carpal tunnel release of both wrists History of section H/O abdominoplasty Hx of colonoscopy History of arthroplasty of left knee H/O heart artery stent Family History Mother Diabetes High blood pressure Father Diabetes High blood pressure Paternal Aunt Bone cancer Sister Breast cancer Sister Lymph node cancer Social History Household Members: None Housing: Apartment Are you a primary medicare insurance specialist to a significant other at home: No Do you presently have visiting nurse or other home services: No Alcohol intake: never Patient Tobacco Use Status: Never used Tobacco service: No Current occupational status: disabled Physical Exam Vital Signs: BMI result Body Mass Index 31.3 Chest Chest palpation & inspection: normal inspection of the chest Breast/axilla inspection: normal inspection of the breasts Breast/axilla palpation: palpation of the breasts abnormal (R brst tender spot @, 11 cm from nipple & @6, 1 cm from nipple, L wnl) Assessment & Plan Assessment & Plan (1) Breast pain, right: Comment: R brst tender spot @, 11 cm from nipple & @6, 1 cm from nipple Code(s): N64.4 - Mastodynia Category: Medical Plan: Discussed with the patient the finding on Breast exam (breast tenderness in 2 locations) .The differential diagnosis includes but not limited to lump/cyst/pre cancer/cancer or dense breast tissue. The work up includes breast US and diagnostic mammogram and referred the patient for surgical breast consult. Instructed the patient to call our office back in case a referral appointment is not scheduled, missed or canceled so that we will assist on rescheduling another appointment, the patient verbalized understanding agreed with the plan. Orders: Orders MM tomosynthesis diagnostic RT Today N64.4 - Mastodynia US breast RT limited Today N64.4 - Mastodynia Referrals General Surgery Referral N64.4 - Mastodynia Coding Level of Care Code Est Pt Level 3 (23595) Diagnoses Breast pain, right N64.4
[2025-06-19 11:12] VITALS: BMI 31.3
--- OUTSIDE RECORDS SUMMARY | 2025-06-19 13:25 | XMS_ITS | Encounter Summary ---
Author Organization [employer] Address [address] [facility] 7t [place] [address] Care Team Providers Care Machine Feller Name Role Phone Carin Bolden Primary Care Provider [phone] Reason for Visit * Reason Comments Med Refill Encounter Details Date Type Department Care Team (Late st Contact Info) Description 07/06/2024 Refill [facility] MEDICINE [address] [place], [place] [phone] Carin Bolden ANP [address] [place], [place] [phone] Social History Tobacco Use Types Packs/Day Years [...] Care Team (Late st Contact Info) Description 08/04/2025 1:45 PM EST Office Visit [facility] MEDIC[facility] [address] [place] [phone] Carin Bolden ANP [address] [place] [address] documented as of this encounter Visit Diagnoses Not on filedocumented in this encounter Additional Health Concerns Assessment Noted Time PHQ-9 Depression Total Score: 8 02/26/20 24 10:46 AM EDT documented as of this encounter Care Teams Machine Feller Relationship Specialty Start Date End Date Carin Bolden ANP [address] [place] [phone] PCP - General Family Medicine 10/10/21 documented as of this encounter
--- OUTSIDE RECORDS SUMMARY | 2025-06-19 13:25 | XMS_ITS | Encounter Summary ---
Author Organization [employer] Address [address] [facility] 7t [place] [address] Care Team Providers Care Community Health Nursing Director Name Role Phone Carin Bolden Primary Care Provider [phone] Reason for Visit * Reason Onset Date Comments Appointment Request 03/22/2025 Encounter Details Date Type Department Care Team ([facility] st Contact Info) Description 03/22/2025 Telephone [facility] [address] [place], [place] [phone] Carin Bolden ANP [address] [place], [place] [phone] Appointment Request Social History Tobacco Use Types [...] pt calling in regards to Neuropathy appt, commercial insurance underwriter attempted to schedule but did not find any30 min slot available documented in this encounter Plan of Treatment Upcoming Encounters Date Type Department Care Team (Late st Contact Info) Description 08/04/2025 1:45 PM EST Office Visit [facility] [address] [place] [address] Carin Bolden ANP [address] [place] [address] documented as of this encounter Visit Diagnoses Not on filedocumented in this encounter Additional Health Concerns Assessment Noted Time PHQ-9 Depression Total Score: 14 025 1:36 PM EDT documented as of this encounter Care Teams Community Health Nursing Director Relationship Specialty Start Date End Date Carin Bolden ANP [address] [place] [address] PCP - General Family Medicine 10/10/21 documented as of this encounter
--- OUTSIDE RECORDS SUMMARY | 2025-06-19 13:25 | XMS_ITS | Patient Health Record ---
Author Organization [email or web address]. Address [address] [place] [address] [place] [address] Care Team Providers Care Ob/Gyn Doctor Name Role Phone Jenna Beebe Primary Care Provider Lou Dacosta Unavailable [phone] Reason For Referral No Information Medications Medication [...] Orally melvin y; Duration: 3 11/26/2018 Active [place] 3 1000 MG 1 capsule Orally Onc [...] 10 day(s) 12/24/2018 Active Vitamin D (Ergocalciferol) 38892 UNIT 1 capsule Orally q weekly 07/17/2017 [...] Status Risk Notes Problem Diabetic renal disease (137859106) Type 2 diabetes mellitus with diabetic chronic kidney disease (E11.22) Active confirmed Problem Diabetic cataract associated with type II diabetes mellitus (710449433) 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) Active confirmed Problem Type 2 diabetes mellitus with peripheral angiopathy (872808028) Type 2 diabetes mellitus with diabetic peripheral angiopathy without gangrene (E11.51) Active confirmed Problem Type 2 diabetes mellitus with other specified complication (E11.69) Active confirmed Problem Mixed hyperlipidemia (615720826) Mixed hyperlipidemia (E78.2) Active confirmed Problem Rotator cuff arthropathy of left shoulder (disorder) (96772784731508829 ) Other specific arthropathies, not elsewhere classified, left shoulder (M12.812) Active confirmed Problem Nontraumatic rupture of muscle or tendon structure of rotator cuff of left shoulder (disorder) (3960935039726803) Unspecified rotator cuff tear or rupture of left shoulder, not specified as traumatic (M75.102) Active confirmed Problem Fibrocystic breast changes (12063769) Diffuse cystic mastopathy of right breast (N60.11) Active confirmed Problem Long-term current use of insulin (128194172) [employer]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.4) Active confirmed Problem Chronic kidney disease stage 2 (320711085) Chronic kidney disease, stage II (mild) (N18.2) Active confirmed Problem Esophageal reflux (310116626) Esophageal reflux (K21.9) Active confirmed Problem Anxiety (09538364) Anxiety (F41.9) Active confi rmed Problem Hypothyroidism (88525968) Hypothyroidism (E03.9) Active confirmed Problem Obstructive sleep apnea (63137167) Obstructive sleep apnea (G47.33) Active confirmed Problem Tear film insufficiency (36051110) Dry eye (H04.129) Active confirmed Problem Localized, primary osteoarthritis of the shoulder region (318953518) Osteoarthritis of left shoulder, unspecified osteoarthritis type (M19.012) Active confirmed Problem Stricture of artery (50542784) 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) Active confirmed CXR 09/23/19 19 Problem Mood disorder (57377079) Mood disorder (F39) Active confirmed Problem Shoulder joint pain (396880731) Left shoulder pain, unspecified chronicity (M25.512) Active confirmed Problem Polyneuropathy due to type 2 diabetes mellitus (272158157) Type 2 diabetes mellitus with polyneuropathy (E11.42) Active confirmed Problem Esotropia (49239324) Esotropia (H50.00) Active confirmed Problem Mild nonproliferative retinopathy due to type 2 diabetes mellitus (186932752075657) Type 2 diabetes mellitus with mild nonproliferative diabetic retinopathy without macular edema, bilateral (E11.3293) Active confirmed Problem Hypertensive heart AND chronic kidney disease with congestive heart failure (33234182221121) Hypertensive heart and chronic kidney disease with heart failure and stage 1 through stage 4 chronic kidney disease, or chronic kidney disease (I13.0) Active confirmed Problem Pulmonary hypertension (21657752) Pulmonary hypertension (I27.20) Active confirmed ECHO 12/02/19 15 Problem Cervical spondylitis (529645837) Cervical spondylitis (M46.92) Active confirmed Problem Arthropathy of lumbar facet joint (488967289) Lumbar facet arthropathy (M46.96) Active confirmed MRI lumbar 4 Problem Homocysteine level above reference range (finding) (727883317835192) Homocysteinemia (E72.19) Active confirmed Problem Heart failure (18979678) CHF (NYHA class II, ACC/AHA stage C) (I50.9) Active confirmed EF 31% - 35% ECHO 12/03/19 18 Plan Of Treatment Pending Test Test Name Order Date MRI : Knee, left w/o contrast 10/02/2015 Abdominal Ultrasound 02/28/2013 Breasts, bilateral Ultrasound 02/20/2015 X ray : Shoulder, left 07/17/2017 X ray : Shoulder, left 07/08/2017 Echocardiogram 11/28/2014 Echocardiogram 11/20/2017 Mammogram Diagnostic 08/21/2015 DEXA Hip and Spine 01/24/2014 DEXA Hip and Spine 01/05/2017 DEXA 04/05/2013 Venous Doppler/Dupplex Bilateral Lower U /S 12/25/2017 Carotid Ultrasound 12/25/2017 Chest X-ray PA and lateral 05/08/2014 Chest X-ray PA and lateral 12/25/2016 Chest X-ray PA and lateral 2017 EKG Electrocardiogram 11/20/2017 EKG Electrocardiogram 11/28/2014 EKG Electrocardiogram 06/06/2014 EKG Electrocardiogram 10/02/2015 EKG Electrocardiogram 06/09/2017 Urinalysis, Complete 04/05/2013 TSH+Free T4 08/15/2013 Mammogram [...] ) 10/02/2015 MICROALBUMIN, RANDOM URINE (W/CREATININE ) 03/24/2016 MICROALBUMIN, RANDOM URINE (W/CREATININE ) 02/08/2019 MICROALBUMIN, RANDOM URINE (W/CREATININE ) 01/16/2016 LIPID PANEL 04/05/2013 SED RATE BY MODIFIED WESTERGREN 04/17/20 14 PMSB-[id number] 05/08/2014 TSH, 3RD GENERATION-Q 07/15/2013 HIV AB, [...] Comprehensive Metabolic Panel 14+eGFR-LC -Q 07/15/2013 Urinalysis, Hgzhfxik-HI-Y 12/05/2013 Urinalysis, Ejkallbp-ZG-D 04/16/2018 GlycoMark(R)(1,5 AG)-LC 12/05/2013 Vitamin D 25-Hydroxy, D2 + D3-LC 016 Uric Acid, Serum-LC 12/05/2013 TSH-LC 09/05/2014 CBC With Differential/Agvhuuwu-BI-V 11/2017 CBC With Differential/Zhavjojo-QT-R 01/13 CBC With Differential/Xihjsvwy-NY-W 11/13 C-Reactive Protein (CRP)-LC 04/17/2014 C3 Complement, Serum 04/17/2014 Hemoglobin A1C 12/05/2014 Hemoglobin A1C 12/05/2013 Hemoglobin A1C 02/08/2019 Hemoglobin A1C 10/01/2018 Urine Culture, Routine-LC 12/24/2018 Microalbumin/Creatinine Ratio, Random Ur ine-LC 12/05/2014 Microalbumin/Creatinine Ratio, Random Ur ine-LC 12/05/2013 Occult Blood, Fecal, IA-LAB KG 014 Occult Blood, Fecal, IA-LAB KG 015 Pap IG, Ct-Ng, rfx HPV ASCU-LC-AGE 21-29 11/12/2018 LIPID PANEL WITH DIRECT LDL-QUEST 2012 TSH+FREE T4 03/24/2016 TSH+FREE T4 05/15/2015 TSH+FREE T4 01/16/2016 HEMOGLOBIN A1C-Q 07/23/2015 MICROALBUMIN, RANDOM URINE (W/CREATININE ) 07/23/2015 Insurance Providers Payer Name Payer Address Payer Phone Subscriber Number Group Number Insured Name Patient Relationship to Insured Coverage Start Date Coverage End Date [facility] [employer] [address] [address] [place] [id number] [phone] [id number] VANESSA BARKER Self - patient is the insured [facility] [employer] [address] [place], [place] [id number] [phone] [id number] VANESSA BARKER Self - patient is the [...]
--- OUTSIDE RECORDS SUMMARY | 2025-06-19 13:25 | XMS_ITS | Encounter Summary ---
Author Organization [facility] Address [address] [place] [address] [address] [place] [address] Care Team Providers Care Crop Production Advisor Name Role Phone Carin Bolden Primary Care Provider [phone] Reason for Visit * Reason Comments Med Refill Encounter Details Date Type Department Care Team (Late st Contact Info) Description 02/19/2023 Refill [facility] [address] [place] [address] [phone] Valentina Escobedo MD [address] [place] [phone] Social History Tobacco Use Types Packs/Day Years [...] Description 08/04/2025 1:45 PM EST Office Visit [facility] [address] [place] [phone] [phone] Carin Bolden ANP [address] [place] [address] documented as of this encounter Visit Diagnoses Not on filedocumented in this encounter Care Teams Crop Production Advisor Relationship Specialty Start Date End Date Carin Bolden ANP [address] [place] [id number] PCP - General Family Medicine 10/10/21 documented as of this encounter
--- OUTSIDE RECORDS SUMMARY | 2025-06-19 13:26 | XMS_ITS | Patient Health Record ---
Author Organization [facility] Address [address] [phone] Care Team Providers Care Assistant Center Manager Name Role Phone Migration, Provider Unavailable [phone] Reason For Referral No Information Encounters Encounter Location Date Provider Diagnosis [facility] [address] [phone] 03/25/2025 Provider Migration [facility] [address] [phone] 03/26/2025 Provider Migration Plan Of Treatment No [...]
--- OUTSIDE RECORDS SUMMARY | 2025-06-19 13:26 | XMS_ITS | Clinical Summary ---
Author Organization [employer] Address [address] [facility] 7t [place] [address] Care Team Providers Care Waiter/Waitress Cafeteria Name Role Phone Justin Lopez JOSE CRUZ Primary Care Provider [phone] Allergies No known active allergies Medications * This document contains information received from the source organization and may not represent a complete record from that organization. Blood Pressure Monitoring (Omron 3 Series BP Monitor) device Check blood pressure on arm as directed Active GaviLyte-G 236 g solution DRINK 240 [...] each 023 Active spironolactone (Aldactone) 25 MG tabletIndications :CHF Take 12.5 mg by mouth in the morning. 023 Active Entresto 97-103 MG tablet Take 1 tablet by mouth 2 times daily. Active gabapentin (Neurontin) 300 MG capsule Take 600 mg by mouth at bedtime. 023 Active Almacone Double Strength 400-400-40 MG/5ML suspension TAKE FIVE ML BY MOUTH FOUR TIMES DAILY NEEDED Active Tresiba FlexTouch 200 UNIT/ML injection INJECT 34 UNITS SUBCUTANEOUSLY AT BEDTIME 024 Active isosorbide mononitrate ER (Imdur) 30 MG 24 hr tablet Take 30 mg by mouth in the morning. 024 Active Xiidra 5 % solution PLACE ONE [...] 1 tablet by mouth at bedtime. Purchases [facility] Active Blood Glucose Monitoring Suppl (Evocalize Lite) w/Device kit Use to test blood sugar TID dx dm 1 kit Active Aspirin Adult Low Strength 81 MG EC tabletIndications :Type 2 diabetes mellitus with hyperglycemia, with long-term current use of insulin (HCC) TAKE ONE TABLET EVERY MORNING 90 tablet 3 Active levothyroxine (Synthroid, Levoxyl) 137 MCG tabletIndications :Hypothyroidism, unspecified type TAKE ONE TABLET EVERY MORNING 90 tablet 1 Active Mounjaro 7.5 MG/0.5ML solution auto-injector Inject 7.5 mg under the skin every 7 (seven) days. Active magnesium oxide (Mag-Ox) 400 mg tablet [...] metFORMIN XR (Glucophage-XR) 500 MG 24 hr tabletIndications :Diabetic polyneuropathy associated with type 2 diabetes mellitus (HCC) TAKE TWO TABLETS TWICE DAILY IN THE MORNING AND EVENING WITH FOOD 360 tablet 1 Active rosuvastatin (Crestor) 40 MG tabletIndications :Diabetic polyneuropathy associated with type 2 diabetes mellitus (HCC),Heart failure with reduced ejection fraction (HCC) Take 1 tablet (40 mg) by mouth Once per day. 90 tablet 1 Active cetirizine (ZyrTEC) 10 MG tabletIndications :Rhinitis, unspecified type TAKE ONE TABLET BY MOUTH ONCE DAILY NEEDED FOR ALLERGY 30 tablet 1 025 Active lidocaine (Lidoderm) 5 % patchIndications: Low back pain, unspecified back pain laterality, unspecified chronicity, unspecified whether sciatica present,Left knee pain, unspecified chronicity,Left hip pain Apply 1 patch topically Once per day. Remove & discard patch within 12 hours or as directed by MD. 30 patch 2 Active NovoLOG FLEXPEN 100 UNIT/ML penIndications:Ty pe 2 diabetes mellitus with hyperlipidemia (HCC) INJECT 20 UNITS SUBCUTANEOUSLY BEFORE MEALS IF BG is >200. INJECT 30 UNITS BEFORE MEALS IF BG is >300 60 mL Active Easy Touch Lancets 33G/Twist miscIndications:T ype 2 diabetes mellitus with hyperlipidemia (HCC) TEST BLOOD SUGAR THREE TIMES DAILY 100 each 025 Active Alcohol Swabs (Alcohol Prep) 70 % padsIndications:T ype 2 diabetes mellitus with hyperglycemia, with long-term current use of insulin ([facility]) USE ONCE DAILY 100 each 025 Active FREESTYLE LITE test stripIndications: Type 2 diabetes mellitus with diabetic polyneuropathy, with long-term current use of insulin ([facility]) TEST BLOOD SUGAR THREE TIMES DAILY DIRECTED 100 strip Active carvedilol (Coreg) 6.25 MG tabletIndications :Heart failure with reduced ejection fraction (HCC) TAKE ONE TABLET IN THE MORNING AND EVENING 30 tablet 3 Active insulin pen needle (Easy Touch Pen [place]) 31G x 6 mm miscIndications:T ype 2 diabetes mellitus with diabetic polyneuropathy, with long-term current use of insulin ([facility]) USE THREE DAILY 100 each 025 Active Multiple Vitamin (Multivitamin) tablet TAKE 1 TABLET EVERY MORNING WITH FOOD 90 tablet 3 025 Active Multiple Vitamin (Multivitamin) tablet TAKE ONE TABLET EVERY MORNING WITH FOOD 90 tablet 3 024 2024 Discontinued Active Problems Problem Noted Date Diagnosed Date [...] pt reports had left knee surgery in [place] in 2016,denies following here w any orthopedic [...] LLE Type 2 diabetes mellitus with hyperlipidemia Chronic osteomyelitis (CMS/HCC) 05/17/2024 Class 1 obesity 05/17/2024 Dysphagia 05/17/2024 [...] polypectomy versus endometrial biopsy On: TBD By: SPRING TIER Anesthesia: General After careful review of patient's [...] 9:29 AM EST): Under the care of Pet Handler Rob Thomason. Last seen 04/2023. Last ECHO [...] Coronary artery disease 08/17/2023 08/17/20 Overview (02/10/2024): Pet Handler Dr. Thomason Baseline ECG: SR, possible prior [...] use of insulin 06/03/2012 08/17/2023 Overview (02/10/2024): [facility] [place] Metformin XR 500mg 2 tabs AM/PM Lantus 30 units daily NovoLog 30 units before meals (we have this as 20 units unless BG 300+) Jardiance 25mg mounjaro 7.5mg weekly (plan to increase to 10mg Spring 2023) On statin, ASA (pt has known CAD), ARB (entresto) Hypertension 06/03/2012 Assessment & Plan (11/19/2023 9:30 AM EST): Pt on Carvedilol once daily ( as per Pet Handler) Once cleared by Cardiology the instruction is for patient to take her Carvedilol with a sip of water the morning of the procedure to prevent her BP from going up. Hypertriglyceridemia 06/03/2012 Hypothyroidism 06/03/2012 Obstructive sleep apnea syndrome 06/03/2012 Postmenopausal bleeding 06/03/2012 Resolved Problems Problem Noted Date Diagnosed Date Resolved Date Depression, recurrent 08/17/2023 08/17/20232024 Encounters Date Type Department Care Team Description 06/14/2025 Refill [facility] [address] [place] [address] Justin Lopez ANP 06/09/2025 Telephone [facility] [address] [place] [address] Justin Lopez ANP chart prep 06/08/2025 Telephone [facility] [address] [place] [address] Justin Lopez ANP Appointment Request; Referral 06/06/2025 Orders Only GENERIC EXTERNAL DATA DEPARTMENT Provider, Generic External Data 05/09/[address] [address] Justin Lopez ANP image order 04/26/2025 3:30 PM EDT Office Visit [address] [address] Justin Lopez ANP Type 2 diabetes mellitus with diabetic polyneuropathy, with long-term current use of insulin (CMS/[facility]) (Primary Dx); Hypothyroidism, unspecified type; Closed fracture of left foot, sequela; Screening for osteoporosis; Low back pain radiating to left leg; Frequent falls 04/26/2025 Travel 04/25/[address] [address] Justin Lopez ANP CHART PREP 04/25/2025 Orders Only GENERIC EXTERNAL DATA DEPARTMENT Provider, Generic External Data 04/19/[address] [address] Justin Lopez ANP Durable Medical Equipment; Prior Authorization 04/14/[address] [address] Justin Lopez ANP Type 2 diabetes mellitus with diabetic polyneuropathy, with long-term current use of insulin (CMS/HCC) 04/14/[address] [address] Justin Lopez ANP Type 2 diabetes mellitus with hyperlipidemia (CMS/HCC) (CMS/HCC); Type 2 diabetes mellitus with hyperglycemia, with long-term current use of insulin (CMS/HCC); Type 2 diabetes mellitus with diabetic polyneuropathy, with long-term current use of insulin (CMS/HCC); Heart failure with reduced ejection fraction (CMS/HCC) 04/14/2025 Refill [facility] [address] [place] [address] Justin Lopez ANP Heart failure with reduced ejection fraction (CMS/HCC) 04/12/[address] [address] Justin Lopez ANP Prior Authorization 04/11/2025 Orders Only [facility] [address] [place] [address] Savannah Arnold MD Low back pain, unspecified back pain laterality, unspecified chronicity, unspecified whether sciatica present (Primary Dx) 04/10/2025 1:15 PM EDT Office Visit [address] [address] Savannah Arnold MD Low back pain, unspecified back pain laterality, unspecified chronicity, unspecified whether sciatica present (Primary Dx); Left knee pain, unspecified chronicity; Left hip pain 04/10/2025 Results Follow-Up [address] [address] Savannah Arnold MD XR Lumbar Spine 2-3 Views, XR Hip 2 or 3 Views Left 04/10/2025 Travel 04/10/[address] [address] Justin Lopez ANP Nurse Triage 03/22/[address] [address] Justin Lopez ANP Returning Call 03/22/[address] [address] Justin Lopez ANP Appointment Request 03/22/[address] [address] Justin Lopez ANP May recall from Last 3 Months Immunizations Immunization Administration [...] Description 08/04/2025 1:45 PM EST Office Visit [facility] [address] [place], [place] [phone] Justin Lopez, ANP [address] [place], [place] [phone] Health Maintenance Due Date Last Done Comments [...] 04/10/2026 04/10/2025 Depression Screening 04/10/2026 04/10/2025, 04/10/20 SDOH Screening 04/10/2026 04/10/2025 Tobacco Screening 04/26/2026 [...] polyneuropathy, with long-term current use of insulin ([facility]) POCT GLUCOSE Routine 04/26/2025 3:44 PM EDT Type 2 diabetes mellitus with diabetic polyneuropathy, with long-term current use of insulin ([facility]) GLUCOSE, WHOLE BLOOD Routine 04/25/2025 11:07 AM [...] ESTABLISHED PATIENT Routine 04/02/2023 1:00 PM EDT COLONOSCOPY Routine 08/27/2022 PAP/HPV Routine 11/25/2021 from Last 3 Months or Most Recently Relevant to Health Maintenance Results * (ABNORMAL) Glucose, Whole Blood (06/06/2025 11:25 AM EDT) Only the most recent of2 resultswithin the time period is included. [facility] Glucose, Whole Blood 126(H) 60 - 115 mg/dL [facility] Comment:METER #: [id number] Testing performed in the Endocrinology Department [address] , [address], [facility]. 06/06/2025 11:2 5 AM EDT 06/06/2025 11:30 AM EDT Generic External Data Provider LAB BLOOD ORDERAB LES Final Result Performing Organization Address City/State/[facility] Co de Phone Number [facility] [address] [place] [phone] * (ABNORMAL) POCT HGB A1C (04/26/2025 3:45 PM EDT) [facility] Hemoglobin A1C 7.5(A) 4.0 - 5.7 % QC Media Lot # [id number] Lot# Expiration Date [id number] Blood 04/26/2025 3:45 PM EDT us Justin Lopez [facility] POINT OF CARE TEST ENTER/EDIT OR DERABLES Final Result * (ABNORMAL) POCT Glucose (04/26/2025 3:44 PM EDT) [facility] Glucose Blood, POC 274(A) 60 - 200 mg/dL QC Media Lot # [id number] Lot# Expiration Date [id number] Blood Capillary blood specimen / Unknown 04/26/2025 3:44 PM EDT us Justin Lopez ANP POINT OF CARE TEST ENTER/EDIT OR DERABLES Final Result * XR Lumbar Spine 2-3 Views (04/10/2025 1:54 PM EDT) Anatomical Region Laterality Modality Spine, L-spine Radiographic Reba ging 04/10/2025 1:54 PM EDT Narrative 04/10/2025 3:22 PM EDT [address] [address] XRay Report Signed Patient: Bozena Gupta MR#: [id number] : 1955 Acct:[id number] Age/Sex: 69 / F ADM Date: 04/10/25 Loc: .[facility]HCX Attending Dr: Savannah Scott MD Ordering Physician: Savannah Arnold MD Date of Service: 04/10/25 Procedure(s): XR lumbar spine 2-3V Accession Number(s): [id number] cc: Savannah Arnold MD; JUSTIN LOPEZ NP [...] Kali Bruce MD 04/10/2025 03:19 PM EDT RP Dictated By: Kali Bruce MD Signed By: <Electronically signed by Kali Bruce MD in OV> 04/10/25 1519 DD/ 1354 TD/TT: 04/10/25 1400 Machinist Set Up: Procedure Note Donotuseinterpreter, Image - 04/10/[address] [address] XRay Report Signed Patient: Bozena Gupta NMR#: [id number] : 1955cct:[id number] Age/Sex: 69 / FADM Date: 04/10/25 Loc: HO.HHCX Attending Dr: Savannah Scott MD Ordering Physician: Savannah Arnlod MD Date of Service: 04/10/25 Procedure(s): XR lumbar spine 2-3V Accession Number(s): [id number] cc: Savannah Arnold MD; JUSTIN LOPEZ NP [...] Kali Bruce MD 04/10/2025 03:19 PM EDT RP Dictated By: Kali Bruce MD Signed By: <Electronically signed by Kali Bruce MD in OV> 04/10/25 1519 DD/ 1354 TD/TT: 04/10/25 1400 Machinist Set Up: Savannah Scott MD IMG XR PROCEDURES Final Result * XR Hip 2 or 3 Views Left (04/10/2025 1:51 PM EDT) Anatomical Region Laterality Modality Lower Extremities, Hip Left Radiograp hic Imaging 04/10/2025 1:51 PM EDT Narrative 04/13/2025 8:52 [place] [address] XRay Report Signed Patient: Bozena Gupta MR#: [id number] : 1955 Acct:[id number] Age/Sex: 69 / F ADM Date: 04/10/25 [facility]: Savannah Scott MD Ordering Physician: Savannah Arnold MD Date of Service: 04/10/25 Procedure(s): XR hip LT min 2V Accession Number(s): [id number] cc: Savannah Arnold MD; JUSTIN LOPEZ NP [...] Kali Bruce MD 04/10/2025 03:16 PM EDT RP Dictated By: Kali Bruce MD Signed By: <Electronically signed by Kali Bruce MD in OV> 04/10/25 1516 DD/ 1351 TD/TT: 04/10/25 1400 Machinist Set Up: Procedure Note Juanater, Image - 04/13/[address] [address] XRay Report Signed Patient: Bozena Gupta NMR#: [id number] : 6Acct:[id number] Age/Sex: 69 / FADM Date: 04/10/25 Loc: HO.HHCX Attending Dr: Savannah Scott MD Ordering Physician: Savannah Arnold MD Date of Service: 04/10/25 Procedure(s): XR hip LT min 2V Accession Number(s): [id number] cc: Savannah Arnold MD; JUSTIN LOPEZ NP [...] 04/10/25 1516 DD/ 1351 TD/TT: 04/10/25 1400 Machinist Set Up: Savannah Scott MD IMG XR PROCEDURES Final Result * XR Knee 3 Views Left (04/10/2025 1:47 PM EDT) Anatomical Region Laterality Modality Lower Extremities, Knee Left [facility] 04/10/2025 1:47 PM EDT Narrative 04/10/2025 3:18 PM EDT [address] [address] XRay Report Signed Patient: Bozena Gupta N MR#: [id number] : 1955 Acct:[id number] Age/Sex: 69 / F ADM Date: 04/10/25 Loc: HO.HHCX Attending Dr: Savannah Scott MD Ordering Physician: Savannah Arnold MD Date of Service: 04/10/25 Procedure(s): XR knee LT 3V Accession Number(s): [id number] cc: Savannah Arnold MD; JUSTIN LOPEZ NP [...] 04/10/25 1514 DD/ 1347 TD/TT: 04/10/25 1400 Machinist Set Up: Procedure Note Donotuseinterpreter, Image - 04/10/[address] [address] XRay Report Signed Patient: Bozena Gupta NMR#: [id number] : 1955cct:[id number] Age/Sex: 69 / FADM Date: 04/10/25 Loc: HO.HHCX Attending Dr: Savannah Scott MD Ordering Physician: Savannah Arnold MD Date of Service: 04/10/25 Procedure(s): XR knee LT 3V Accession Number(s): [id number] cc: Savannah Arnold MD; JUSTIN LOPEZ NP [...] Kali Bruce MD 04/10/2025 03:14 PM EDT RP Dictated By: Kali Bruce MD Signed By: <Electronically signed by Kali Bruce MD in OV> 04/10/25 1514 DD/ 1347 TD/TT: 04/10/25 1400 Machinist Set Up: us Savannah Scott MD IMG XR PROCEDURES Final Result * (ABNORMAL) Albumin, Random Urine W/Creatinine (01/16/2025 10:05 AM EDT) Creatinine, Urine 59.94 mg/dL [facility] Microalbumin Urine 133.0 mg/L [facility] Microalbum Creatinine Ratio Ur 221.8(H) <30 ug/mg cr [facility] Comment:Albumin/Creatinine R atio Reference Ranges: Normal: < 30 ug/mg creatinine Microalbuminuria: 30 - 300 ug/mg creatinineClinical Albuminuria: > 300 ug/mg creatinine 01/16/2025 10:0 5 AM EDT 01/16/2025 10:23 AM EDT us Generic External Data Provider LAB URINE ORDERAB LES Final Result Performing Organization Address [facility]/ZIP Co de Phone Number [facility] [address] [place] [phone] * Lipid Panel, Standard (01/16/2025 10:05 AM EDT) Triglycerides 122 <150 mg/dL [facility] Comment:Desirable Triglyceri de: less than 150 mg/dLBorderline High Triglyceride 150-199 mg/dLHigh Triglyceride: 200-499 mg/dLVery High Triglyceride: greater than or equal to 5OO mg/dL Cholesterol 125 <200 mg/dL [facility] Comment:Desirable Cholestero l: less than 200 mg/dLBorderline High Cholesterol: 200-239 mg/dLHigh Cholesterol: greater than 239 mg/dL LDL Cholesterol Calculated 57 <100 mg/dL [facility] Comment:Desirable LDL: less than 100 mg/dLNear Optimal/Above Optimal LDL: 110- 129 mg/dLBorderline High LDL: 130-159 mg/dLHigh LDL: 160-189 mg/dLVery High LDL: greater than or equal to 190 mg/dL HDL Cholesterol 44 >40 mg/dL [facility] Comment:Desirable HDL: great er than 40 mg/dL Note: This HDL assay may give artificially low results in patients with liver disease. 01/16/2025 10:0 5 AM EDT 01/16/2025 10:05 AM EDT us Generic External Data Provider LAB BLOOD ORDERAB LES Final Result Performing Organization Address City/[facility]/ZIP Co de Phone Number [facility] [address] [place] [phone] * BI Mammogram Screening Tomosynthesis Bilateral (09/21/2024 1:15 PM EST) Anatomical Region Laterality Modality Breast Bilateral Mammography 09/21/2024 1:15 PM EST Narrative 09/28/2024 8:33 AM EST [address] [place] [address] Mammography Report Signed Patient: Bozena Gupta N MR#: [id number] : 1955 Acct:[id number] Age/Sex: 68 / F ADM Date: 09/21/24 Loc: HO.MAMMO Attending Dr: Justin Lopez NP Ordering Physician: JUSTIN LOPEZ NP Results: 2Benign Wilian ding Date of Service: 09/21/24 Follow Up: 1 Year From Orig inal Mammogram Procedure(s): MM tomosynthesis screening BI Accession Number(s): [id number] cc: JUSTIN LOPEZ NP EXAMINATION: MM SCREENING [...] 09/28/24 0830 DD/ 1315 TD/TT: 09/21/24 1329 Machinist Set Up: Procedure Note Donotuseinterpreter, Image - 09/28/[address] [place] [address] Mammography Report Signed Patient: Bozena Gupta NMR#: [id number] : 6Acct:[id number] Age/Sex: 68 / FADM Date: 09/21/24 Loc: HO.MAMMO Attending Dr: Justin Lopez BOOKING AGENT Ordering Physician: JUSTIN LOPEZ NPResults: 2Benisumi arce Date of Service: 09/21/24Follow Up: 1 Year From Orig inal Mammogram Procedure(s): MM tomosynthesis screening BI Accession Number(s): [id number] cc: JUSTIN LOPEZ NP EXAMINATION: MM SCREENING [...] by: Izabel Suarez DO 09/28/2024 08:30 AM [facility] Dictated By: Izabel Suarez DO Signed By: <Electronically signed by Izabel Suarez DO in OV> 09/28/24 0830 DD/ 1315 TD/TT: 09/21/24 1329 Machinist Set Up: Justin Lopez ANP IMG BI PROCEDURES Final Result * Hm Colonoscopy (08/27/2022) Colonoscopy Normal Normal Narrative Loree Chan - 08/27/2022 Repeat Colonoscopy in 5-6 years due to fair prep on left side or earlier if clinically indicated Historical Provider HEALTH MAINTENANCE Final Result * Hm Pap Smear (11/25/2021) Pap Negative for intraephithelial lesion or malignancy Negative for intraephithelial lesion or malignancy, Other HPV Undetected us Historical Provider HEALTH MAINTENANCE Edited Result - Final from Last 3 Months or Most Recently Relevant to Health Maintenance Insurance [facility] INTERMEDIATE OPTIONS (O D-SNP) [place]ARCOS [id number] Care Teams Waiter/Waitress Cafeteria Relationship Specialty Start Date End Date Justin Lopez ANP [address] [place] [phone] PCP - General Family Medicine 10/10/21
--- OUTSIDE RECORDS SUMMARY | 2025-06-19 13:26 | XMS_ITS | Encounter Summary ---
Author Organization [employer] Address [address] [facility] 7t [place] [address] Care Team Providers Care High School Guidance Counselor Name Role Phone Carin Bolden Primary Care Provider [phone] Encounter Details Date Type Department Care Team (Latest Contact Info) Description 02/17/2022 Abstract [facility] CONVERSIONS Dental, Provider, DDS Social History [...] Description 08/04/2025 1:45 PM EST Office Visit [facility] [address] [place] [address] Carin Bolden ANP [address] [place] [address] documented as of this encounter Visit Diagnoses Not on filedocumented in this encounter Care Teams High School Guidance Counselor Relationship Specialty Start Date End Date Carin Bolden ANP [address] [place] [address] PCP - General Family Medicine 10/10/21 documented as of this encounter
--- OUTSIDE RECORDS SUMMARY | 2025-06-19 13:26 | XMS_ITS | Encounter Summary ---
Author Organization [employer] Address [address] [facility] 7t [place] [address] Care Team Providers Care Syrup Maker Name Role Phone Carin Bolden Primary Care Provider [phone] Encounter Details Date Type Department Care Team (Late st Contact Info) Description 07/22/2023 Abstract [facility] [address] [place], [place] [phone] Carin Bolden, ANP [address] [place], [place] [phone] Social History Tobacco Use Types Packs/Day Years Used Date Smoking Tobacco: Never Passive Smoke Exposure: Never Smokeless Tobacco: Never Alcohol Use Standard Drinks/Week Comments Never 0 (1 standard drink = 0.6 oz pur e alcohol) Depression Answer Date Recorded Patient Health Questionnaire-9 Score 14 03/20/2023 Housing Stability Answer Date Recorded What is your housing situation today? I have renatara benites 06/29/[address] you [...] t he electric, gas, oil or water [employer] threatened to shut off services in your [...] Description 08/04/2025 1:45 PM EST Office Visit [facility] [address] [place] [phone] Carin Bolden ANP [address] [place] [address] documented as of this encounter Visit Diagnoses Not on filedocumented in this encounter Additional Health Concerns Assessment Noted Time PHQ-9 Depression Total Score: 14 023 2:16 PM EDT documented as of this encounter Care Teams Syrup Maker Relationship Specialty Start Date End Date Carin Bolden ANP [address] [place] [phone] PCP - General Family Medicine 10/10/21 documented as of this encounter
--- OUTSIDE RECORDS SUMMARY | 2025-06-19 13:26 | XMS_ITS | Encounter Summary ---
Author Organization [employer] Address [address] [facility] 7t [place] [address] Care Team Providers Care Duralumin Mechanic Name Role Phone Carin Bolden Primary Care Provider [phone] Reason for Visit * Reason Comments Med Refill Encounter Details Date Type Department Care Team (Late st Contact Info) Description 06/14/2025 Refill [facility] [address] [place], [place] [phone] Carin Bolden ANP [address] [place], [place] [phone] Social History Tobacco Use Types Packs/Day Years [...] Description 08/04/2025 1:45 PM EST Office Visit [facility] [address] [place] [phone] Carin Bolden ANP [address] [place] [address] documented as of this encounter Visit Diagnoses Not on filedocumented in this encounter Additional Health Concerns Assessment Noted Time PHQ-9 Depression Total Score: 0 04/10/20 25 1:18 PM EDT documented as of this encounter Care Teams Duralumin Mechanic Relationship Specialty Start Date End Date Carin Bolden ANP [address] [place] [phone] PCP - General Family Medicine 10/10/21 documented as of this encounter
--- OUTSIDE RECORDS SUMMARY | 2025-06-19 13:26 | XMS_ITS | Encounter Summary ---
Author Organization [facility] Address [address] [facility] [employer] 7t [place] [address] Care Team Providers Care Recovery Coordinator Name Role Phone Carin Bolden Primary Care Provider [phone] Reason for Visit * Reason Comments Med Refill Encounter Details Date Type Department Care Team (Late st Contact Info) Description 08/28/2023 Refill [facility] [address] [place], [place] [phone] Carin Bolden ANP [address] [place], [place] [phone] Subacute cough Social History Tobacco Use Types [...] 1:45 PM EST Office Visit [facility] [address] [place] [address] Carin Bolden ANP [address] [place] [address] documented as of this encounter Visit Diagnoses Diagnosis Subacute cough documented in this encounter Additional Health Concerns Assessment Noted Time PHQ-9 Depression Total Score: 14 023 2:16 PM EDT documented as of this encounter Care Teams Recovery Coordinator Relationship Specialty Start Date End Date Carin Bolden ANP [address] [place] [address] PCP - General Family Medicine 10/10/21 documented as of this encounter
--- OUTSIDE RECORDS SUMMARY | 2025-06-19 13:26 | XMS_ITS | Encounter Summary ---
Author Organization [employer] Address [address] [facility] 7t [place] [address] Care Team Providers Care Nursing Student Name Role Phone Carin Bolden Primary Care Provider [phone] Reason for Visit * Reason Comments Med Refill Encounter Details Date Type Department Care Team (Late st Contact Info) Description 12/19/2024 Refill [facility] 230 [place], [place] [phone] Carin Bolden ANP 230 [place], [place] [phone] Social History Tobacco Use Types Packs/Day Years [...] Description 08/04/2025 1:45 PM EST Office Visit [facility] [address] [place] [address] Carin Bolden ANP 230 [place] [address] documented as of this encounter Visit Diagnoses Not on filedocumented in this encounter Additional Health Concerns Assessment Noted Time PHQ-9 Depression Total Score: 14 025 1:36 PM EDT documented as of this encounter Care Teams Nursing Student Relationship Specialty Start Date End Date Carin Bolden ANP [address] [place] [address] PCP - General Family Medicine 10/10/21 documented as of this encounter
--- OUTSIDE RECORDS SUMMARY | 2025-06-19 13:26 | XMS_ITS | Encounter Summary ---
Author Organization [employer] Address [address] [facility] 7t [place] [address] Care Team Providers Care Administration Professional Name Role Phone Carin Bolden JOSE CRUZ Primary Care Provider [phone] Encounter Details Date Type Department Care Team ([facility] st Contact Info) Description 06/19/2023 Abstract [facility] 230 [place], [place] [phone] Loree Chan Social History Tobacco Use Types [...] Description 08/04/2025 1:45 PM EST Office Visit [facility] 230 [place] [address] Carin Bolden ANP 230 [place], [place] [phone] documented as of this encounter Procedures Procedure Name Priority Date/Time Associated Diagnosis Comments PAP/HPV Routine 11/25/2021 documented in this encounter Results * Pap Smear (11/25/2021) Pap Negative for intraephithelial lesion or malignancy Negative for intraephithelial lesion or malignancy, Other HPV Undetected us Historical Provider [facility] Edited Result - Final documented in this encounter Visit Diagnoses Not on filedocumented in this encounter Additional Health Concerns Assessment Noted Time PHQ-9 Depression Total Score: 14 023 2:16 PM EDT documented as of this encounter Care Teams Administration Professional Relationship Specialty Start Date End Date Carin Bolden ANP 230 [place] [address] PCP - General Family Medicine 10/10/21 documented as of this encounter
--- OUTSIDE RECORDS SUMMARY | 2025-06-19 13:26 | XMS_ITS | Clinical Summary ---
Author Organization [facility] Address [address] [facility] [address] [place], [place] [address] Phone Care Team Providers Care Loss Prevention Specialist Name Role Phone Carni Bolden NP Primary Care Provider [phone] Allergies No known active allergies Medications aspirin 81 mg EC tablet Take 81 mg by mouth daily. Active carvediloL (COREG) 6.25 mg tablet Take 1 Tablet by mouth 2 times daily. 04/15/20 24 Active empagliflozin (Jardiance) 25 mg tablet Take 25 mg by mouth daily. 04/23/20 23 Active insulin NPH-insulin regular (HumuLIN 70/30 U-100 [...] tablet Take 1 Tablet by mouth daily. 05/27/20 24 Active tirzepatide (Mounjaro) 7.5 mg/0.5 mL injection Inject into the skin. Dose increased Active insulin glargine (Lantus U-100 Insulin) 100 unit/mL injection Inject 44 Units into the skin 2 times daily. Active blood pressure monitor (Blood Pressure Kit) kit 1 Each by Does not apply route Once. 05/04/20 23 Active insulin aspart (NovoLOG) 100 unit/mL injection [...] mouth every other day. 15 tablet 1 05/29/20 25 Active Entresto 97-103 mg per tablet TAKE ONE TABLET IN THE MORNING AND EVENING 180 tablet 1 06/14/20 25 Active spironolactone (ALDACTONE) 25 mg tablet Take 0.5 Tablets by mouth every other day. 05/18/20 24 025 Discontinued(Re order) sacubitriL-denise sartan (Entresto) 97-103 mg per tablet Take 1 tablet by mouth 2 (two) times a day. 180 tablet 1 12/21/19 25 025 Discontinued Hospital, Clinic, or Other Facility Administered Medication Ordered Dose Route Frequency Start Date End Date Status perflutren lipid microsphere (DEFINITY) 1.3 mL in sodium chloride 0.9% 8.7 mL injection 10 mL IV Once in imaging 05/31/2025 05/31/2025 End ed Active Problems Problem Noted Date Diagnosed Date Claudication ([facility] V24) 02/15/2025 Assessment & Plan (04/04/2025 7:18 PM EDT): The patient complains of bilateral leg discomfort with ambulation. Will order lower extremity arterial duplex to rule out the presence of PAD Orders: Vascular US duplex lower extremity arteries bilateral with JASON; Future Heart failure with reduced e jection fraction ([facility] V24, [facility] V28) 03/07/2022 Overview (09/27/2024): Last Assessment & [...] to the mid LAD in 2018 at [facility]. The patient had been reporting episodes of [...] every night. Depression 05/09/2010 DM (diabetes mellitus) ([facility] V24, [facility] V28 ) 05/09/2010 HTN (hypertension) 05/09/2010 Overview [...] Encounters Date Type Department Care Team Description 06/16/2025 Telephone [facility] [address] [place] [address] [address] [place] [address] Michelle Arellano NP 05/31/2025 9:00 AM EDT Ancillary Procedure [facility] [address] [place] [address] Heart failure with reduced ejection fraction (CMS/HCC V24, CMS/HCC V28) 05/03/2025 Telephone [facility] [address] [facility] [address] [place] [address] Rob Melendez MD 05/02/2025 Telephone [facility] [address] [place] [address] Rob Melendez MD 05/01/2025 12:00 PM EDT Ancillary Procedure [facility] [address] [place] [phone] Claudication ([facility] V24) from Last 3 Months Surgical History Surgery Date Site/Laterality Comments COLONOSCOPY 2006? PROCEDURE: LA COLONOSCOPY FLX DX W/COLLJ SPEC WHEN PFRMD ESOPHAGOGASTRODUODENOSCOPY 05/13/2010 PROCEDURE: LA EGD TRANSORAL BIOPSY SINGLE/MULTIPLE; COMMENT: Normal esophagus [...] History Medical History Date Comments Diabetes mellitus ([facility] V24, [facility] V28) DX:Diabetes mellitus ([facility]) JEVON (obstructive sleep apnea) DX :JEVON (obstructive [...] 10:30 AM EST Consult [facility] - [place] [address] [place] [address] Jessica Randolph PA [address] [place], [place] [phone] 10/12/2025 9:50 AM EST Office Visit [facility] [address] [place] [address] Rob Melendez MD [address] [place] [address] [address] [place] [address] Health Maintenance Due Date Last Done Comments Breast Cancer Screening 1955 Colorectal Cancer Screening: Colonoscopy 1955 Diabetes: Annual Foot Exam 1965 Diabetes: Annual Retina Eye Exam 1965 Zoster Vaccines (1 of 2) 2005 Falls Risk Assessment 08/14/2022 Hepatitis C Screening [...] Procedure Name Priority Date/Time Associated Diagnosis Comments TRANSTHORACIC ECHOCARDIOGRAM (TTE) COMPLETE W/ CONTRAST Routine 05/31/2025 9:59 AM EDT Heart failure with reduced ejection fraction (CMS/HCC V24, CMS/HCC V28) VAS US DUPLEX LOWER EXT ARTERIES BILAT WITH JASON Routine 05/01/2025 12:32 PM EDT Claudication (CMS/HCC V24) LIPID PANEL Routine 10/18/2024 8:03 AM EST COMPREHENSIVE METABOLIC PANEL Routine 10/17/2024 9:28 AM EST from Last 3 Months or Most Recently Relevant to Health Maintenance Results * (ABNORMAL) TRANSTHORACIC ECHOCARDIOGRAM (TTE) COMPLETE W/ CONTRAST (05/31/2025 9:59 AM EDT) LV EDV (A2C) 83 mL CV PACS LV EDV (A4C) 120 mL CV PACS LV Diastolic Volume (BP) 102 46 - 106 mL CV PACS LV ESV (A2C) 50 mL CV PACS LV ESV (A4C) 62 mL CV PACS LV Systolic Volume (BP) 57(A) 14 - 42 mL CV PACS IVSD 1.1(A) 0.6 - 0.9 cm CV PACS LVIDD 5.2 3.8 - 5.2 cm CV PACS LVIDS 4.0(A) 2.2 - 3.5 cm CV PACS LVOT Diameter 1.8 cm CV PACS LVOT Mean Spike 0.6 m/s CV PACS LVOT Mean Grad 2 mmHg CV PACS LVOT Peak VTI 17.2 cm CV PACS LVOT Peak Spike 1.0 m/s CV PACS LVOT Peak Gradient 4 mmHg CV PACS LVPWD 1.0(A) 0.6 - 0.9 cm CV PACS MV E' Tissue Velocity Lateral 8 cm/s CV PACS MV E' Tissue Velocity Septal 5 cm/s CV PACS Ejection Fraction (A2C) 41 % CV PACS Ejection Fraction (A4C) 49 % CV PACS Ejection Fraction (BP) 44 % CV PACS LVOT Area 2.5 cm2 CV PACS LVOT Stroke Volume 44 mL CV PACS Left Atrium Minor Meraux 6.5 cm CV PACS Left Atrium Major Meraux 6.2 cm CV PACS LA Area Sys (A2C) 21 cm2 CV PACS LA Area Sys (A4C) 19 cm2 CV PACS LA Volume (BP) 51 mL CV PACS RA Area 13.4 cm2 CV PACS RA 2D Volume 31 mL CV PACS AV Mean Gradient 3 mmHg CV PACS AV Mean Gradient 3 mmHg CV PACS Ao VTI 27.5 cm CV PACS AV Peak Spike 1.3 m/s CV PACS AV Peak Gradient 7 mmHg CV PACS AV Area Continuity Equation 1.6 cm2 CV PACS AV Area Peak Velocity 1.9 cm2 CV PACS Aortic Sinus Valsalva 3.2 cm CV PACS Ascending Aorta 3.5 cm CV PACS IVC Proximal 1.9 cm CV PACS MV Deceleration Mchenry 3.0 m/s2 CV PACS E Wave Deceleration Time 234 119 - 242 ms CV PACS MV PHT 69 ms CV PACS MV Peak A Spike 0.93 m/s CV PACS MV Peak E Spike 0.73 m/s CV PACS MV Mean Gradient 1 mmHg CV PACS MV Mean Gradient 1 mmHg CV PACS MV Mean Gradient 1 mmHg CV PACS MV Mean Gradient 1 mmHg CV PACS MV VTI 24.7 cm CV PACS Mitral Valve Max Velocity 1.0 m/s CV PACS MV Peak Gradient 4 mmHg CV PACS MV Area PHT 3.2 cm2 CV PACS MV Area Continuity Equation 1.8 cm2 CV PACS PV Acceleration Time 109 ms CV PACS PV Acceleration Time 95 ms CV PACS PV Acceleration Time 102 ms CV PACS PV Mean Gradient 1 mmHg CV PACS PV VTI 16.5 cm CV PACS PV Peak Velocity 0.8 m/s CV PACS PV Peak Gradient 2 mmHg CV PACS RV Diastolic Basal Dimension 3.6 2.5 - 4.1 cm CV PACS RV S' 12 cm/s CV PACS TAPSE 30 mm CV PACS TR Peak Velocity 2.01 m/s CV PACS TR Peak Gradient 16 mmHg CV PACS LV ESV Index (A4C) 31 mL/m2 CV PACS LV EDV Index (A4C) 59 mL/m2 CV PACS E/E' Ratio Septal 15 CV PACS E/E' Ratio Averaged 12 CV PACS LVOT Stroke Index 22 mL/m2 CV PACS Relative Wall Thickness ratio 0.38 CV PACS LVOT:AV VTI Index 0.63 CV PACS FS 23 % CV PACS LV Mass 2D 207 g CV PACS Ascending Aorta Index 1.72 cm/m2 CV PACS MV VTI:LVOT VTI ratio 1.4 CV PACS LVOT flow 153 mL/s CV PACS RA 2D Volume Index 15 mL/m2 CV PACS AL Index (VTI) 0.78 cm2/m2 CV PACS AL Index (Pk Spike) 0.94 cm2/m2 CV PACS LVIDD Index 2.56 cm/m2 CV PACS LVIDS Index 1.97 cm/m2 CV PACS AV Velocity Ratio 0.77 CV PACS E/A Ratio 0.8 CV PACS E/E' Ratio Lateral 9 CV PACS LV Systolic Volume Index (BP) 28 mL/m2 CV PACS LV Diastolic Volume Index (BP) 50 mL/m2 CV PACS LA Volume Index (BP) 25 mL/m2 CV PACS LV Mass Index 2D 102 g/m2 CV PACS LV EDV Index (A2C) 41 mL/m2 CV PACS LV ESV Index (A2C) 25 mL/m2 CV PACS BSA 2.08 m2 CV PACS Right Ventricular Peak Systolic Pressure 19 mmHg CV PACS Est. RA Pressure 3 mmHg CV PACS Anatomical Region Laterality Modality Ultrasound Narrative 06/19/2025 6:50 AM EDT Left ventricle cavity is mildly dilated. Left ventricular systolic function is mildly decreased with an ejection fraction of 45-50%. Mild LV global hypokinesis is present. Left ventricle mild concentric hypertrophy. Right ventricle cavity is normal. Aortic valve leaflets are mildly thickened. Left Ventricle Left ventricle cavity is mildly dilated. There is mild concentric hypertrophy. Systolic function is mildly decreased with an ejection fraction of 45-50%. Mild global LV hypokinesis is present. Right Ventricle Right ventricle cavity appears normal. Left Atrium Left atrium cavity size is normal. Right Atrium Right atrium cavity is normal. IVC/SVC Inferior vena cava structure is normal. RA pressures is estimated to be 3 mmHg (IVC diameter <21 mm and decreases >50% during inspiration). Mitral Valve The leaflets are mildly thickened. There is mild annular calcification. There is trace regurgitation. There is no evidence of mitral valve stenosis. Tricuspid Valve Tricuspid valve structure is normal. There is no significant regurgitation. The right ventricular systolic pressure is normal. Aortic Valve The aortic valve is trileaflet. The leaflets are mildly thickened. There is no regurgitation or stenosis. Pulmonic Valve No significant pulmonic valve regurgitation. Ascending Aorta The aorta appears normal in size. Pericardium Pericardium appears normal. There is no pericardial effusion. Study Details Overall the study quality was suboptimal. Definity contrast was given to enhance imaging. us Rob Melendez MD CV ECHO PROCEDURES Fin al Result * Vascular US duplex lower extremity arteries [...] PSV 80 cm/s CV VAS LAB Left ELECTRONICS TECHNICIAN prox sys PSV 83 cm/s CV VAS [...] PSV 62 cm/s CV VAS LAB Right ELECTRONICS TECHNICIAN prox sys PSV 131 cm/s CV VAS [...] The mid peroneal artery has biphasic flow. Extrusion Supervisor Details A araon scale, color and doppler analysis ultrasound was performed. During the study longitudinal views were obtained. Pulsed wave doppler was performed. us Rob Melendez MD CV VASCULAR PROCEDURES Final Result * (ABNORMAL) Lipid panel (10/18/2024 8:03 AM EST) Cholesterol Total 153 100 - 199 mg/dL [facility] Triglycerides 167(H) 0 - 149 mg/dL [facility] HDL Cholesterol 50 >39 mg/dL [facility] VLDL Cholesterol Calculated 28 5 - 40 mg/dL [facility] LDL Chol Calc ([facility]) 75 0 - 99 mg/dL [facility] 10/18/2024 8:03 AM EST 10/18/2024 Narrative [facility] - 10/18/2024 11:06 PM EST Performed at: [address] [place] [id number] Retail Service Specialist: Kelley Hughes MD, Phone: [phone] Michelle Arellano POPULATION HEALTH MANAGER LAB BLOOD ORDERABLES Final Result [facility] * (ABNORMAL) Comprehensive metabolic panel (10/17/2024 9:28 AM EST) Pathologist [facility] Glucose 202(H) 70 - 99 mg/dL [facility] [...] AM EST Performed at: 01 - [facility] [address] [id number] Retail Service Specialist: Kelley Hughes MD, Phone: [phone] Michelle Arellano NP LAB BLOOD ORDERABLES Final Result [facility] 1 from Last 3 Months or Most Recently Relevant to Health [place] [address] [facility] MEDICARE Member Subscriber Plan / Payer (Ef fective 2022-Present) Name:Bozena Gupta Relation to Subscriber:Self Name:Bozena Osullivan Payer ID:[id number] Group ID:[id number] Type:Not on file Address: [place] [address] [address] [id number] Care Teams Loss Prevention Specialist Relationship Specialty Start Date End Date Carin Bolden NP [address] [place] [address] [place] [address] PCP - General 11/07/21
--- OUTSIDE RECORDS SUMMARY | 2025-06-19 13:26 | XMS_ITS | Encounter Summary ---
Author Organization [employer] Address [address] [place] [address] 7t [place] [address] Care Team Providers Care Homicide Detective Name Role Phone Carin Bolden Primary Care Provider [phone] Encounter Details Date Type Department Care Team (Late st Contact Info) Description 08/11/2022 Abstract [facility] [address] [place] [address] [phone] Dental, Provider, DDS Social History Tobacco Use [...] Description 08/04/2025 1:45 PM EST Office Visit [facility] 230 [place], [place] [phone] Carin Bolden ANP 230 [place], [place] [phone] documented as of this encounter Procedures Procedure [...] on filedocumented in this encounter Care Teams Homicide Detective Relationship Specialty Start Date End Date Carin Bolden ANP [address] [place] [address] PCP - General Family Medicine 10/10/21 documented as of this encounter
--- OUTSIDE RECORDS SUMMARY | 2025-06-19 13:26 | XMS_ITS | Encounter Summary ---
Author Organization [employer] Address [address] [facility] 7t [place] [address] Care Team Providers Care Product Representative Name Role Phone Carin Bolden Primary Care Provider [phone] Reason for Visit * Reason Onset Date Comments Appointment Request 06/08/2025 Referral 06/08/2025 Encounter Details Date Type Department Care Team ([facility] st Contact Info) Description 06/08/2025 Telephone [facility] [address] [place], [place] [phone] Carin Bolden ANP [address] [place], [place] [phone] Appointment Request; Referral Social History Tobacco Use Types Packs/Day Years [...] encounter Miscellaneous Notes * Telephone Encounter - Reji Groves - 06/08/2025 3:04 PM EDT TC from pt reports had a visit today Orthopedics ([facility]) Josie Lester (RAINER) Patient Appointment Information Date: 06/08/2025 Time: 2:15 PM ([place]) Location: [address] [place] [address] [address] [facility] [address] FAX [phone] When got to office did not have anything scheduled. Pt was directed by office to contact a specificnumber for scheduling but is unsuccessful getting a hold of a live person . Pt looking for assistance, documented in this encounter Plan of Treatment Upcoming Encounters Date Type Department Care Team (Late st Contact Info) Description 08/04/2025 1:45 PM EST Office Visit [facility] [address] [place] [address] Carin Bolden ANP 230 [place] [address] documented as of this encounter Visit Diagnoses Not on filedocumented in this encounter Additional Health Concerns Assessment Noted Time PHQ-9 Depression Total Score: 0 04/10/20 25 1:18 PM EDT documented as of this encounter Care Teams Product Representative Relationship Specialty Start Date End Date Carin Bolden ANP 230 [place] [address] PCP - General Family Medicine 10/10/21 documented as of this encounter
--- OUTSIDE RECORDS SUMMARY | 2025-06-19 13:26 | XMS_ITS | Encounter Summary ---
Author Organization [facility] Address [address] [place] [address] Care Team Providers Care Piping Design Specialist Name Role Phone Carin Bolden NP Primary Care Provider [phone] Reason for Visit * Reason Onset Date Comments Entresto 97-103MG tablets 06/16/2025 Encounter Details Date Type Department Care Team (Late st Contact Info) Description 06/16/2025 Telephone [facility] [address] [place] [address] Michelle Arellano NP [address] [place] [address] [address] [place] [address] Social History Tobacco Use Types [...] as of this encounter Progress Notes * Pilar Muir - 06/19/2025 9:28 AM EDT Entresto 97-103 mg per tablet - APPROVED Type of Coverage: Non-Formulary Validity Dates: 03.20.25 - 06.18.26 * Pilar Muir - 06/16/2025 10:34 AM EDT PA initiated via phone call for the patients Entresto 97-103MG tablets. Case # [id number] documented in this encounter Plan of Treatment Upcoming Encounters Date Type Department Care Team (Late st Contact Info) Description 07/21/2025 10:30 AM EST Consult Vascular Surgery - [place] [address] [place] [address] Jessica Randolph PA [address] [place] [address] 10/12/2025 9:50 AM EST Office Visit [facility] [address] [place] [address] Rob Melendez MD [address] [place] [address] [address] [place] [phone] documented as of this encounter Visit Diagnoses Not on filedocumented in this encounter Care Teams Piping Design Specialist Relationship Specialty Start Date End Date Carin Bolden NP [address] [facility] [address] [place] [phone] PCP - General 11/07/21 documented as of this encounter
--- OUTSIDE RECORDS SUMMARY | 2025-06-19 13:26 | XMS_ITS | Encounter Summary ---
Author Organization [employer] Address [address] [facility] 7t [place] [address] Care Team Providers Care Director Social Service Name Role Phone Carin Bolden JOSE CRUZ Primary Care Provider [phone] Reason for Visit * Reason Comments Med Refill Encounter Details Date Type Department Care Team (Late st Contact Info) Description 08/16/2024 Refill [facility] [address] [place], [place] [phone] Lori Bee MD [address] [place] [address] Carpal tunnel syndrome, unspecified laterality Social History [...] 08/04/2025 1:45 PM EST Office Visit [facility] 230 [place] [address] Carin Bolden ANP [address] [place] [address] documented as of this encounter Visit Diagnoses Diagnosis Carpal tunnel syndrome, unspecified laterality documented in this encounter Additional Health Concerns Assessment Noted Time PHQ-9 Depression Total Score: 8 02/26/20 24 10:46 AM EDT documented as of this encounter Care Teams Director Social Service Relationship Specialty Start Date End Date Carin Bolden ANP [address] [place] [address] PCP - General Family Medicine 10/10/21 documented as of this encounter
== END 2025-06-19 11:29 | disposition home or self-care (01) ==
LOC: HO.HWS 11:01
PROVIDERS: PCP Nurse Practitioner Primary Care; Visit Provider Obstetrics & Gynecology
DX: N64.4 Mastodynia (principal)
CPT/HCPCS: 99213

== ENCOUNTER → 2025-06-19 11:01 | Outpatient (BNVA) | payer OTHER, SELFPAY | PROVIDERS: PCP Nurse Practitioner Primary Care; Visit Provider Obstetrics & Gynecology | DX: N64.4 Mastodynia (principal) | CPT/HCPCS: 99212 ==

== ENCOUNTER 2025-07-05 13:00 | Outpatient (RCR) | payer OTHER, SELFPAY ==
[2025-06-07 11:05] VITALS: BP 121/57; PULSE 72
== END 2025-07-05 14:28 | disposition home or self-care (01) ==
LOC: HO.PT 13:00
PROVIDERS: PCP Nurse Practitioner Primary Care; Visit Provider Student in an Organized Health Care Education/Training Program
DX: M54.50 Low back pain, unspecified (principal)
CPT/HCPCS: 97110; 97112; 97140; 97161; 97530

== ENCOUNTER 2025-07-18 14:44 | Outpatient (REF) | payer OTHER, SELFPAY ==
--- OUTSIDE RECORDS SUMMARY | 2025-03-25 04:00 | XMS_ITS ---
Author Organization [facility] [place] Address [address] [phone] Care Team Providers Care Information Systems Director Name Role Phone Migration, Provider Unavailable [phone] REASON FOR VISIT EMR-Edgar Encounters Encounter Location [place] [id number] [phone] 03/25/2025 Provider Migration Plan Of Treatment Medication Medication Name Sig Start Date Stop Date Notes Trulicity Route: subcutaneous Frequency: ONCE A WEEK(VOUCHER) Take: 0.5 ml 06/08/2019 07/14/2019 Status: Taking Original Code: [address]-80 Brand: Trulicity *Pick strength-form from [employer] for eRX* True Metrix Meter Route: in vitro Frequency: 2 times a day Take: as directed Quantity: 1 03/20/2021 03/20/2021 Status: Stop Origin al Code: [id number] Brand: True Metrix Meter Aspirin Adult Low Dose 81 MG Route: Orally Frequency: Once a day Take: 1 tablet Oral 07/05/2021 07/05/2021 Status: Taking Original Code: [address]-22 Brand: Aspir-81 Soliqua 100-33 UNT-MCG/ML Route: once daily Frequency: once daily Take: 25 units at breakfast Subcutaneous 06/12/2020 06/12/2020 Status: Taking Original Code: [address]-16 Brand: Soliqua TRUE METRIX Route: in vitro Frequency: twice a day Take: strips Quantity: 200 09/02/2019 09/05/2019 Status: Taking Original Code: [id number] Brand: TRUE METRIX GLUCOSE TEST STRIP Gen: blood sugar diagnostic *Reorder from [employer] for eRx and Interaction Alerts* True Metrix Blood Glucose Test Route: In Vitro Frequency: three times a day Take: as directed Quantity: 300 05/24/2020 05/24/2020 Status: Refill Original Code: [id number] Brand: True Metrix Blood Glucose Test *Pick strength-form from [employer] for eRX* Insulin Syringes (Disposable) Route: in vitro Frequency: twice a day Take: as directed 01/24/2020 01/24/2020 Status: Stop Brand: Insulin Syringes (Disposable) Lancets 30G Route: in vitro Frequency: 4 per day Take: as directed Quantity: 360 05/24/2020 05/24/2020 Status: Taking Original Code: [id number] Brand: LANCETS Gen: lancets Pen [place] 01/27 Route: subcutaneos Frequency: once a day Take: as directed Quantity: 90 07/11/2020 07/11/2020 Status: Discontinued Original Code: [id number] Brand: PEN NEEDLES Gen: pen needle, diabetic CVS Probiotic - Route: Orally Frequency: Every 8 hours Take: 1 capsule Quantity: 45 Capsule Oral 02/26/2020 03/12/2020 Status: Taking Original Code: [address]-54 Brand: CVS Probiotic Spironolactone 25 MG Route: Orally Frequency: Once a day Take: 1/2 tablet Oral 07/05/2021 07/05/2021 Status: Taking Original Code: [id number] Brand: SPIRONOLACTONE Gen: spironolactone Sulfamethoxazole-Trime thoprim 800-160 MG Route: Oral Take: TAKE 1 TABLET BY MOUTH TWICE DAILY Quantity: 28 Oral 05/30/2021 05/30/2021 Status: Unknown Original Code: [id number] Brand: SULFAMETHOXAZOLE-TRIM ETHOPRIM Gen: sulfamethoxazole/trim ethoprim Terbinafine HCl Route: Orally Frequency: Once a day Take: 1 tablet Quantity: 10 03/12/2021 03/22/2021 Status: Taking Original Code: [address]-71 Brand: Terbinafine HCl *Pick strength-form from [employer] for eRX* Vancomycin HCl in Dextrose 500-5 MG/100ML Route: IVPB Frequency: q24 hours Take: 1500mg/DSW 250 ml Intravenous 04/10/2021 04/10/2021 Status: Unknown Original Code: [address]-73 Brand: Vancomycin HCl in Dextrose Insulin Syringe Route: subcutaneous Frequency: twice a day Take: as directed Quantity: 60 01/24/2020 01/24/2020 Status: Taking Original Code: [id number] Brand: INSULIN SYRINGE Gen: syringe and needle,insulin,1mL Sertraline HCl 50 MG Route: Orally Frequency: Once a day Take: 1 tablet Oral 03/26/2021 03/26/2021 Status: Taking Original Code: [address]-17 Brand: Sertraline HCl Silver sulfADIAZINE Route: Externally Frequency: Once a day Take: 1 application to affected area Quantity: 25 Gram 05/31/2019 06/05/2019 Status: Taking Original Code: [address]-01 Brand: Silver sulfADIAZINE *Pick strength-form from [employer] for eRX* Awmyuwrl-Lmqugzohd-Ezy ameth 0.1 % Route: Ophthalmic Frequency: Four times a day Take: 1 drop into both eyes Quantity: 1 Bottle Ophthalmic 04/16/2021 04/16/2021 Status: Unknown Original Code: [address]-32 Brand: Zynsxfat-Idhwirpvz-Xz xameth NovoLIN 70/30 (70-30) 100 UNIT/ML Route: Subcutaneous Frequency: three time all day Take: 20 units Quantity: 1800 Subcutaneous 05/25/2019 05/25/2019 Status: Discontinued Original Code: [address]-23 Brand: NovoLIN 70/30 Santyl 250 UNIT/GM Route: External Take: APPLY OINTMENT TOPICALLY ONCE DAILY Quantity: 90 g External 07/05/2021 07/05/2021 Status: Unknown Original Code: [id number] Brand: SANTYL Gen: collagenase Clostridium hist. Mupirocin 2 % Route: Externally Frequency: twice daily Take: 1 application Quantity: 1 External 02/18/2020 02/25/2020 Status: Taking Original Code: [address]-58 Brand: Mupirocin Levothyroxine Sodium 150 MCG Route: Orally Frequency: Once a day Take: 1 tablet on an empty stomach in the morning Quantity: 90 Oral 07/05/2021 07/05/2021 Status: Unknown Original Code: [address]-54 Brand: Levothyroxine Sodium Loratadine 10 MG Route: Orally Frequency: Once a day Take: 1 tablet Quantity: 30 Oral 06/28/2021 07/28/2021 Status: Taking Original Code: [address]-07 Brand: Loratadine Losartan Potassium-HCTZ 100-25 MG Route: Orally Frequency: Once a day Take: 1 tablet Oral 11/22/2019 11/22/2019 Status: Shahzad Baron l Code: [address]-17 Brand: Losartan Potassium-HCTZ metFORMIN HCl 1000 MG Route: Orally Frequency: TWICE a day Take: 1 tablet with a meal Oral 03/14/2019 03/14/2019 Status: Taking Original Code: [address]-09 Brand: metFORMIN HCl Ketoconazole Route: Externally Frequency: bi weekly Take: 1 application to scalp as needed Quantity: 1 07/26/2019 07/26/2019 Status: Unknown Original Code: [id number] Brand: KETOCONAZOLE Gen: ketoconazole *Pick strength-form from [employer] for eRX* Lantus 100 UNIT/ML Route: Subcutaneous Take: 50 units am and 30 units pm Subcutaneous 07/10/2020 07/10/2020 Status: Shahzad Baron l Code: [address]-33 Brand: Lantus levoFLOXacin 500 MG Route: Orally Frequency: Once a day Take: 1 tablet Quantity: 10 Oral 02/26/2020 03/07/2020 Status: Taking Original Code: [address]-43 Brand: levoFLOXacin HumaLOG 100 UNIT/ML Route: Subcutaneous Frequency: tid Take: 10 u 15 minutes around meals Injection 02/21/2020 02/21/2020 Status: Discontinued Original Code: [address]-91 Brand: HumaLOG Irbesartan-hydroCHLORO thiazide 300-12.5 MG Route: Orally Frequency: Once a day Take: 1 tablet Oral 11/22/2019 11/22/2019 Status: Taking Original Code: [address]-59 Brand: Irbesartan-hydroCHLOR Othiazide Gentamicin Sulfate 0.1 % Route: Externally to right 3rd toe lesion Frequency: once a day Take: 1 application on left 3rd toe once daily External 04/10/2021 04/10/2021 Status: Taking Original Code: [address]-26 Brand: Gentamicin Sulfate Glimepiride 4 MG Route: Orally Frequency: Once a day Take: 1 tablet with lunch Oral 03/14/2019 03/14/2019 Status: Discontinued Original Code: [id number] Brand: GLIMEPIRIDE Gen: glimepiride Fluticasone Propionate 50 MCG/ACT Route: Nasally Frequency: Once a day Take: 1 spray in each nostril Quantity: 1 Bottle Nasal 06/28/2021 06/28/2021 Status: Taking Original Code: [address]-06 Brand: Fluticasone Propionate Furosemide 20 MG Route: Orally Frequency: Once a day Take: 1 tablet Oral 07/05/2021 07/05/2021 Status: Taking Original Code: [address]-21 Brand: Furosemide Gabapentin Route: Orally Frequency: Once a day Take: 1 capsule Quantity: 90 Capsule 08/29/2019 08/29/2019 Status: Discontinue d Original Code: [address]-91 Brand: Gabapentin *Pick strength-form from [employer] for eRX* Clobetasol Propionate 0.05 % Route: Externally Frequency: Twice a day Take: 1 application to affected area Quantity: 1 External 08/29/2019 08/29/2019 Status: Unknown Original Code: [address]-33 Brand: Clobetasol Propionate Clopidogrel Bisulfate Route: Orally Frequency: Once a day Take: 1 tablet 07/05/2021 07/05/2021 Status: Taking Original Code: [address]-99 Brand: Clopidogrel Bisulfate *Pick strength-form from [employer] for eRX* Diclofenac Sodium 1 % Route: Transdermal Frequency: Twice a day Take: 1 application to affected area Quantity: 100 External 03/14/2019 06/10/2019 Status: Discontinued Original Code: [address]-45 Brand: Diclofenac Sodium Doxycycline Hyclate 100 MG Route: Orally Frequency: Twice a day Take: 1 tablet Oral 04/10/2021 05/03/2021 Status: Taking Original Code: [address]-45 Brand: Doxycycline Hyclate Ciprofloxacin HCl 500 MG Route: Orally Frequency: every 12 hrs Take: 1 tablet Quantity: 14 Tablet Oral 06/28/2021 07/05/2021 Status: Taking Original Code: [address]-56 Brand: Ciprofloxacin HCl Carvedilol 6.25 MG Route: Orally Frequency: two times a day Take: 1 tablet Oral 07/05/2021 07/05/2021 Status: Taking Original Code: [address]-51 Brand: Carvedilol Cefepime HCl 2 GM Route: Intravenous Frequency: every 12 hrs Take: 50 ml Intravenous 04/10/2021 04/10/2021 Status: Unknown Original Code: [address]-13 Brand: Cefepime HCl Cephalexin 500 MG Route: Orally Frequency: every 12 hrs Take: 1 capsule Quantity: 20 Oral 02/21/2020 03/02/2020 Status: Discontinued Original Code: [address]-70 Brand: Cephalexin Amoxicillin 500 MG Route: Orally Frequency: every 12 hrs Take: 1 capsule Quantity: 20 Oral 02/18/2020 02/28/2020 Status: Discontinued Original Code: [address]-50 Brand: Amoxicillin Atorvastatin Calcium 20 MG Route: Orally Frequency: Once a day Take: 1 tablet Quantity: 90 Tablet Oral 07/05/2021 07/05/2021 Status: Unknown Original Code: [address]-86 Brand: Atorvastatin Calcium Progress Notes * Bozena GUPTA NDOB:1955 (69 yo F)Acc No.[id number]:03/25/2025 Patient: Deonna YBARRA Bozena GALLEGO N :1955 A ge:69 Y S ex:Female Phone: Address:[address] [place] [address], [place], [address] * Refills Stop Amoxicillin Capsule, 500 MG, Oral, 20, Route: Orally Frequency: every 12 hrs Take: 1 capsule Quantity: 20 Stop Atorvastatin Calcium Tablet, 20 MG, Oral, 90, Route: Orally Frequency: Once a day Take: 1 tablet Quantity: 90 Tablet Stop Carvedilol Tablet, 6.25 MG, Oral, 0, Route: Orally Frequency: two times a day Take: 1 tablet Stop Cefepime HCl Solution Reconstituted, 2 GM, Intravenous, 0, Route: Intravenous Frequency: every 12 hrs Take: 50 ml Stop Cephalexin Capsule, 500 MG, Oral, 20, Route: Orally Frequency: every 12 hrs Take: 1 capsule Quantity: 20 Stop Ciprofloxacin HCl Tablet, 500 MG, Oral, 14, Route: Orally Frequency: every 12 hrs Take: 1 tablet Quantity: 14 Tablet Stop Clobetasol Propionate Cream, 0.05 %, External, 1, Route: Externally Frequency: Twice a day Take: 1 application to affected area Quantity: 1 Stop Clopidogrel Bisulfate, 0, Route: Orally Frequency: Once a day Take: 1 tablet Stop Diclofenac Sodium Gel, 1 %, External, 100, Route: Transdermal Frequency: Twice a day Take: 1 application to affected area Quantity: 100 Stop Doxycycline Hyclate Tablet, 100 MG, Oral, 0, Route: Orally Frequency: Twice a day Take: 1 tablet Stop Fluticasone Propionate Suspension, 50 MCG/ACT, Nasal, 1, Route: Nasally Frequency: Once a day Take: 1 spray in each nostril Quantity: 1 Bottle Stop Furosemide Tablet, 20 MG, Oral, 0, Route: Orally Frequency: Once a day Take: 1 tablet Stop Gabapentin, 90, Route: Orally Frequency: Once a day Take: 1 capsule Quantity: 90 Capsule Stop Gentamicin Sulfate Cream, 0.1 %, External, 0, Route: Externally to right 3rd toe lesion Frequency: once a day Take: 1 application on left 3rd toe once daily Stop Glimepiride Tablet, 4 MG, Oral, 0, Route: Orally Frequency: Once a day Take: 1 tablet with lunch Stop HumaLOG Solution, 100 UNIT/ML, Injection, 0, Route: Subcutaneous Frequency: tid Take: 10 u 15 minutes around meals Stop Irbesartan-hydroCHLOROthiazide Tablet, 300-12.5 MG, Oral, 0, Route: Orally Frequency: Once a day Take: 1 tablet Stop Ketoconazole, 1, Route: Externally Frequency: bi weekly Take: 1 application to scalp as needed Quantity: 1 Stop Lantus Solution, 100 UNIT/ML, Subcutaneous, 0, Route: Subcutaneous Take: 50 units am and 30 units pm Stop levoFLOXacin Tablet, 500 MG, Oral, 10, Route: Orally Frequency: Once a day Take: 1 tablet Quantity: 10 Stop Levothyroxine Sodium Tablet, 150 MCG, Oral, 90, Route: Orally Frequency: Once a day Take: 1 tablet on an empty stomach in the morning Quantity: 90 Stop Loratadine Tablet, 10 MG, Oral, 30, Route: Orally Frequency: Once a day Take: 1 tablet Quantity: 30 Stop Losartan Potassium-HCTZ Tablet, 100-25 MG, Oral, 0, Route: Orally Frequency: Once a day Take: 1 tablet Stop metFORMIN HCl Tablet, 1000 MG, Oral, 0, Route: Orally Frequency: TWICE a day Take: 1 tablet with a meal Stop Mupirocin Ointment, 2 %, External, 1, Route: Externally Frequency: twice daily Take: 1 application Quantity: 1 Stop Kjaeeqrb-Iascietvw-Xorzkkof Suspension, 0.1 %, Ophthalmic, 1, Route: Ophthalmic Frequency: Four times a day Take: 1 drop into both eyes Quantity: 1 Bottle Stop NovoLIN 70/30 Suspension, (70-30) 100 UNIT/ML, Subcutaneous, 1800, Route: Subcutaneous Frequency: three time all day Take: 20 units Quantity: 1800 Stop Santyl Ointment, 250 UNIT/GM, External, 90, Route: External Take: APPLY OINTMENT TOPICALLY ONCE DAILY Quantity: 90 g Stop Sertraline HCl Tablet, 50 MG, Oral, 0, Route: Orally Frequency: Once a day Take: 1 tablet Stop Silver sulfADIAZINE, 25, Route: Externally Frequency: Once a day Take: 1 application to affected area Quantity: 25 Gram Stop Spironolactone Tablet, 25 MG, Oral, 0, Route: Orally Frequency: Once a day Take: 1/2 tablet Stop Sulfamethoxazole-Trimethoprim Tablet, 800-160 MG, Oral, 28, Route: Oral Take: TAKE 1 TABLET BY MOUTH TWICE DAILY Quantity: 28 Stop Terbinafine HCl, 10, Route: Orally Frequency: Once a day Take: 1 tablet Quantity: 10 Stop Vancomycin HCl in Dextrose Solution, 500-5 MG/100ML, Intravenous, 0, Route: IVPB Frequency: q24 hours Take: 1500mg/DSW 250 ml Stop Insulin Syringe, 60, Route: subcutaneous Frequency: twice a day Take: as directed Quantity: 60 Stop Insulin Syringes (Disposable), 0, Route: in vitro Frequency: twice a day Take: as directed Stop Lancets 30G, 360, Route: in vitro Frequency: 4 per day Take: as directed Quantity: 360 Stop Pen [place]on 5/16 , 90, Route: subcutaneos Frequency: once a day Take: as directed Quantity: 90 Stop CVS Probiotic Capsule, - , Oral, 45, Route: Orally Frequency: Every 8 hours Take: 1 capsule Quantity: 45 Capsule Stop True Metrix Blood Glucose Test, 300, Route: In Vitro Frequency: three times a day Take: as directed Quantity: 300 Stop Trulicity, 0, Route: subcutaneous Frequency: ONCE A WEEK(VOUCHER) Take: 0.5 ml Stop True Metrix Meter, 1, Route: in vitro Frequency: 2 times a day Take: as directed Quantity: 1 Stop Aspirin Adult Low Dose Tablet Delayed Release, 81 MG, Oral, 0, Route: Orally Frequency: Once a day Take: 1 tablet Stop Soliqua Solution Pen-injector, 100-33 UNT-MCG/ML, Subcutaneous, 0, Route: once daily Frequency: once daily Take: 25 units at breakfast Stop TRUE METRIX, 200, Route: in vitro Frequency: twice a day Take: strips Quantity: 200 Subjective: * Chief Complaints: * E MR-Edgar * Medical History: * Surgical History: * Hospitalization/Major Diagno stic Procedure: * Medications: Objective: * Vitals: * Physical Examination: Assessment: Plan: * Treatment: * Procedure Codes: * * Date:
--- OUTSIDE RECORDS SUMMARY | 2025-03-26 04:00 | XMS_ITS ---
Author Organization Franco Cerda e [facility] Address [address] [phone] Care Team Providers Care Riding Double Name Role Phone Migration, Provider Unavailable [phone] REASON FOR VISIT [facility] [place] En[place] Location Date Provider Diagnosis Franco [facility] [facility] [address] [phone] 03/26/2025 Provider Migration Plan Of Treatment No Information Progress Notes * Bozena BARKER NDOB:1955 (69 yo F)Acc No.[id number]:03/26/2025 Patient: Deonna BELLTO Bozena N :1955 A ge:69 Y S ex:Female Phone: Address:[place], [address] Subjective: * Chief Complaints: * E MR-Edgar [...]
--- NOTE | ~2025-07-18 | US_ITS ---
EXAMINATION(S): 1. MM DIAGNOSTIC DIGITAL BREAST TOMOSYNTHESIS, BILATERAL 2. Targeted ultrasound of the right breast CLINICAL INFORMATION: Right breast obtained with spot at 9 o'clock position at 11 cm from the nipple and 6 o'clock position at 1 cm from the nipple. Remote history for breast reduction. COMPARISON: Comparison made to multiple prior, most recent September 21, 2024, and most remote January 15, 2017. TECHNIQUE: Digital breast tomosynthesis is performed in both the mediolateral oblique and craniocaudal views along with computer-aided detection (CAD). Synthesized 2D images are generated from the tomosynthesis. Two triangular skin markers were placed at the location of the focal pain in the right breast. FINDINGS: BREAST COMPOSITION: There are scattered areas of fibroglandular density. RIGHT BREAST: Status post reduction mammoplasty. No significant masses, suspicious calcifications or other abnormalities are seen. In particular, no suspicious mammographic findings adjacent to the triangular skin markers. Targeted ultrasound of the right breast was performed at the location of the pain as indicated by the patient. The survey centered at 6 o'clock position at 1 cm from the nipple and at 9 o'clock position 11 cm from the nipple did not reveal suspicious sonographic findings. LEFT BREAST: Status post reduction mammoplasty. No significant masses, suspicious calcifications or other abnormalities are seen. US/US Breast RT Limited Mamm Only IMPRESSION: RIGHT BREAST: Benign, no evidence of malignancy. No suspicious sonographic or mammographic findings to accounts for patient's focal pain. Clinical follow-up is recommended for the concern of focal pain. Otherwise, normal interval follow-up mammogram is recommended in 12 months. LEFT BREAST: Benign, no mammographic evidence of malignancy. Normal interval follow-up is recommended in 12 months. ASSESSMENT: BI-RADS: Category 2: Benign RECOMMENDATION: 1. Patient should be managed based on the clinical impression. 2. Otherwise, routine annual screening mammography. Results were provided to the patient at time of visit by the technologist. This patient's information was entered into a reminder system with a target due date for their next mammogram. Electronically signed by: Phill Mahoney MD 07/18/2025 05:14 PM [facility]
--- OUTSIDE RECORDS SUMMARY | 2025-07-18 17:47 | XMS_ITS | Encounter Summary ---
Author Organization Hillary [facility] Address [address] [place] [address] Care Team Providers Care Nibbler Operator Name Role Phone BoldenCarin JOSE A Primary Care Provider [phone] Encounter Details Date Type Department Care Team (Late st Contact Info) Description 06/21/2025 Results Follow-Up [facility] Dr Alfred [address] [place] [address] Rob Melendez MD [address] [place] [address] Dr Mcfadden [address] [place] [address] Social History Tobacco Use Types [...] as of this encounter Progress Notes * Rob Melendez MD - 06/21/2025 12:01 PM EDT I attempted to call the patient today to review the results of her recent echocardiogram. Nevertheless, there was no answer to the phone number provided in the medical record. I left a voicemail message with instructions for the patient to call me back. documented in this encounter Plan of Treatment Upcoming Encounters Date Type Department Care Team (Late st Contact Info) Description 07/21/2025 10:30 AM EST Consult Vascular Surgery - [place] [address] [place] [phone] Jessica Randolph PA 230 [place] [phone] 10/12/2025 9:50 AM EST Office Visit [facility] [address] [place] [address] Dr [address] [place] [address] Rob Melendez MD [address] [place] [address] Dr Bogdan [address] [place] [phone] documented as of this encounter Visit Diagnoses Not on filedocumented in this encounter Care Teams Nibbler Operator Relationship Specialty Start Date End Date Carin Bolden NP 230 [facility] [address] [place] [address] PCP - General 11/07/21 documented as of this encounter
--- OUTSIDE RECORDS SUMMARY | 2025-07-18 17:48 | XMS_ITS | Encounter Summary ---
Author Organization [employer] Address 75 [facility] 7t [place] [address] Care Team Providers Care Spool Worker Name Role Phone Carin Bolden Primary Care Provider [phone] Reason for Visit * Reason Comments Med Refill Encounter Details Date Type Department Care Team (Late st Contact Info) Description 07/06/2024 Refill [facility] 230 [place], [place] [phone] Carin Bolden ANP 230 [place], [place] [phone] Social History Tobacco Use Types Packs/Day Years [...] Description 08/04/2025 1:45 PM EST Office Visit [facility] [address] [place] [address] Carin Bolden ANP 230 [place] [address] documented as of this encounter Visit Diagnoses Not on filedocumented in this encounter Additional Health Concerns Assessment Noted Time PHQ-9 Depression Total Score: 8 02/26/20 24 10:46 AM EDT documented as of this encounter Care Teams Spool Worker Relationship Specialty Start Date End Date Carin Bolden ANP [address] [place] [address] PCP - General Family Medicine 10/10/21 documented as of this encounter
--- OUTSIDE RECORDS SUMMARY | 2025-07-18 17:48 | XMS_ITS | Patient Health Record ---
Author Organization [employer] [facility] Address [address] [phone] Care Team Providers Care Talent Sourcing Specialist Name Role Phone Migration, Provider Unavailable [phone] Reason For Referral No Information Encounters Encounter Location Date Provider Diagnosis [facility] [address] [phone] 03/25/2025 Provider Migration [facility] [address] [phone] 03/26/2025 Provider Migration Plan Of Treatment No [...]
--- OUTSIDE RECORDS SUMMARY | 2025-07-18 17:48 | XMS_ITS | Encounter Summary ---
Author Organization Hillary [facility] Address [address] [place] [address] Care Team Providers Care Wellness Health Coach Name Role Phone BoldenCarin Jr NARANJO Primary Care Provider [phone] Reason for Visit * Reason Onset Date Comments Testing 06/30/2025 Auth CTA Chest Encounter Details Date Type Department Care Team (Late st Contact Info) Description 06/30/2025 Telephone [facility] Dr Alfred [address] [place] [address] Rob Melendez MD [address] [place] [address] Dr Mcfadden [address] [place] [address] Social History Tobacco Use Types [...] as of this encounter Progress Notes * Michelle Liz - 07/14/2025 2:39 PM EDT CCA is request more documentation to support the need for the CTA Chest. The OV notes and recent testing results have been submitted but they don't support medical necessity. If not submitted the test will be denied. * Michelle Liz - 07/03/2025 8:59 AM EDT PA request faxed to [facility] for review. Process can take up to 15 days. 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), @[facility] documented in this encounter Plan of Treatment Upcoming Encounters Date Type Department Care Team (Late st Contact Info) Description 07/21/2025 10:30 AM EST Consult Vascular Surgery - [place] [address] [place] [phone] Jessica Randolph PA 230 [place] [phone] 10/12/2025 9:50 AM EST Office Visit [facility] - [facility] [address] [place] [address] Rob Melendez MD [address] [place] [address] Dr Bogdan [address] [place] [phone] documented as of this encounter Visit Diagnoses Not on filedocumented in this encounter Care Teams Wellness Health Coach Relationship Specialty Start Date End Date Carin Bolden, JOSE A 230 [facility] [address] [place] [phone] PCP - General 11/07/21 documented as of this encounter
--- OUTSIDE RECORDS SUMMARY | 2025-07-18 17:48 | XMS_ITS | Encounter Summary ---
Author Organization [employer] Address 75 [facility] 7t [place] [address] Care Team Providers Care Javascript Engineer Name Role Phone Carin Bolden JOSE CRUZ Primary Care Provider [phone] Reason for Visit * Reason Comments Med Refill Encounter Details Date Type Department Care Team (Late st Contact Info) Description 08/16/2024 Refill [facility] MED & PEDS [address] [place], [place] [phone] Lori Bee MD 230 [place] [address] Carpal tunnel syndrome, unspecified laterality Social History [...] Description 08/04/2025 1:45 PM EST Office Visit [facility] MEDICINE 230 [place] [address] Carin Bolden ANP 230 [place] [address] documented as of this encounter Visit Diagnoses Diagnosis Carpal tunnel syndrome, unspecified laterality documented in this encounter Additional Health Concerns Assessment Noted Time PHQ-9 Depression Total Score: 8 02/26/20 24 10:46 AM EDT documented as of this encounter Care Teams Javascript Engineer Relationship Specialty Start Date End Date Carin Bolden ANP [address] [place] [address] PCP - General Family Medicine 10/10/21 documented as of this encounter
--- OUTSIDE RECORDS SUMMARY | 2025-07-18 17:48 | XMS_ITS | Encounter Summary ---
Author Organization [employer] Address 75 [facility] 7t [place] [address] Care Team Providers Care Sexual Health Physician Name Role Phone Carin Bolden JOSE CRUZ Primary Care Provider [phone] Encounter Details Date Type Department Care Team ([facility] st Contact Info) Description 06/19/2023 Abstract [facility] MEDICINE 230 [place], [place] [phone] Loree Chan Social History Tobacco Use Types [...] Description 08/04/2025 1:45 PM EST Office Visit [facility] MEDICINE 230 [place] [address] Carin Bolden ANP 230 [place], [place] [phone] documented as of this encounter Procedures Procedure Name Priority Date/Time Associated Diagnosis Comments PAP/HPV Routine 11/25/2021 documented in this encounter Results * Pap Smear (11/25/2021) Pap Negative for intraephithelial lesion or malignancy Negative for intraephithelial lesion or malignancy, Other HPV Undetected us Historical Provider [facility] Edited Result - Final documented in this encounter Visit Diagnoses Not on filedocumented in this encounter Additional Health Concerns Assessment Noted Time PHQ-9 Depression Total Score: 14 023 2:16 PM EDT documented as of this encounter Care Teams Sexual Health Physician Relationship Specialty Start Date End Date Carin Bolden ANP 230 [place] [address] PCP - General Family Medicine 10/10/21 documented as of this encounter
--- OUTSIDE RECORDS SUMMARY | 2025-07-18 17:48 | XMS_ITS | Encounter Summary ---
Author Organization [employer] Address 75 [facility] 7t [place] [address] Care Team Providers Care Electrostatic Powder Coating Technician Name Role Phone Carin Bolden Primary Care Provider [phone] Reason for Visit * Reason Onset Date Comments Appointment Request 06/08/2025 Referral 06/08/2025 Encounter Details Date Type Department Care Team ([facility] st Contact Info) Description 06/08/2025 Telephone [facility] MEDICINE 230 [place], [place] [phone] Carin Bolden ANP 230 [place] [address] Appointment Request; Referral Social History Tobacco Use [...] 2:15 PM (margarito de la espalda) Location: [address] [place] [address] 2nd [facility] [address] FAX [phone] When got to office did not have anything scheduled. Pt was directed by office to contact a specificnumber for scheduling but is unsuccessful getting a hold of a live person . Pt looking for assistance, documented in this encounter Plan of Treatment Upcoming Encounters Date Type Department Care Team (Late st Contact Info) Description 08/04/2025 1:45 PM EST Office Visit [facility] MEDICINE 230 [place] [address] Carin Bolden ANP 230 [place] [address] documented as of this encounter Visit Diagnoses Not on filedocumented in this encounter Additional Health Concerns Assessment Noted Time PHQ-9 Depression Total Score: 0 04/10/20 25 1:18 PM EDT documented as of this encounter Care Teams Electrostatic Powder Coating Technician Relationship Specialty Start Date End Date Carin Bolden ANP 230 [place] [address] PCP - General Family Medicine 10/10/21 documented as of this encounter
--- OUTSIDE RECORDS SUMMARY | 2025-07-18 17:48 | XMS_ITS | Encounter Summary ---
Author Organization [employer] Address 75 [facility] 7t [place] [address] Care Team Providers Care Superintendent Quarry Name Role Phone Carin Bolden Primary Care Provider [phone] Encounter Details Date Type Department Care Team (Latest Contact Info) Description 02/17/2022 Abstract [facility] Dental, Provider, DDS Social History [...] Description 08/04/2025 1:45 PM EST Office Visit [facility] MEDICINE 230 [place] [address] Carin Bolden ANP 230 [place] [address] documented as of this encounter Visit Diagnoses Not on filedocumented in this encounter Care Teams Superintendent Quarry Relationship Specialty Start Date End Date Carin Bolden ANP 230 [place] [address] PCP - General Family Medicine 10/10/21 documented as of this encounter
--- OUTSIDE RECORDS SUMMARY | 2025-07-18 17:48 | XMS_ITS | Encounter Summary ---
Author Organization [employer] Address [address] [place] [address] 7t [place] [address] Care Team Providers Care Rn Mds Name Role Phone Carin Bolden Primary Care Provider Encounter Details Date Type Department Care Team (Late st Contact Info) Description 08/11/2022 Abstract [facility] D[facility]AL [address] [place] [phone] Dental, Provider, DDS Social History Tobacco Use [...] Description 08/04/2025 1:45 PM EST Office Visit [facility] 230 [place], [place] [phone] Carin Bolden ANP 230 [place], [place] [phone] documented as of this encounter Procedures Procedure [...] on filedocumented in this encounter Care Teams Rn Mds Relationship Specialty Start Date End Date Carin Bolden ANP [address] [place] [address] PCP - General Family Medicine 10/10/21 documented as of this encounter
--- OUTSIDE RECORDS SUMMARY | 2025-07-18 17:48 | XMS_ITS | Encounter Summary ---
Author Organization [employer] Address 75 [facility] 7t [place] [address] Care Team Providers Care Brusher And Shearer Name Role Phone Kimi Justin BILLINGSLEY Primary Care Provider [phone] Encounter Details Date Type Department Care Team (Late st Contact Info) Description 07/18/2025 Orders Only [facility] External Provider, [facility] Social History Tobacco Use Types Packs/Day Years [...] Description 08/04/2025 1:45 PM EST Office Visit [facility] MEDICINE 230 [place] [address] Justin Lopez, ANP 230 [place] [address] documented as of this encounter Procedures Procedure Name Priority Date/Time Associated Diagnosis Comments BI MAMMOGRAM DIAGNOSTIC TOMOSYNTHESIS RIGHT Routine 07/18/2025 2:55 PM EST documented in this encounter Results * BI Mammogram Diagnostic Tomosynthesis Right (07/18/2025 2:55 PM EST) Anatomical Region Laterality Modality Breast Right Mammography 07/18/2025 2:55 PM EST Narrative 07/18/2025 5:16 PM EST [facility] [address] [place] [address] Mammography Report Signed Patient: Bozena Gupta MR#: [id number] : 1955 Acct:[id number] Age/Sex: 69 / F ADM Date: 07/18/25 Loc: HO.MAMMO Attending Dr: Arturo De León MD Ordering Physician: Arturo De León MD Results: 2Benign Date of Service: 07/18/25 Follow Up: 1 Year From Orig ina Mammogram Procedure(s): MM tomosynthesis diagnostic RT Accession Number(s): [id number] cc: JUSTIN LOPEZ NP; Arturo De León MD Reason For Exam: N64.4 - Mastodynia EXAMINATION(S): 1. MM DIAGNOSTIC DIGITAL BREAST TOMOSYNTHESIS, BILATERAL 2. Targeted ultrasound of the right breast CLINICAL INFORMATION: Right breast obtained with spot at 9 o'clock position at 11 cm from the nipple and 6 o'clock position at 1 cm from the nipple. Remote history for breast reduction. COMPARISON: Comparison made to multiple prior, most recent September 21, 2024, and most remote January 15, 2017. TECHNIQUE: Digital breast tomosynthesis is performed in both the mediolateral oblique and craniocaudal views along with computer-aided detection (CAD). Synthesized 2D images are generated from the tomosynthesis. Two triangular skin markers were placed at the location of the focal pain in the right breast. FINDINGS: BREAST COMPOSITION: There are scattered areas of fibroglandular density. RIGHT BREAST: Status post reduction mammoplasty. No significant masses, suspicious calcifications or other abnormalities are seen. In particular, no suspicious mammographic findings adjacent to the triangular skin markers. Targeted ultrasound of the right breast was performed at the location of the pain as indicated by the patient. The survey centered at 6 o'clock position at 1 cm from the nipple and at 9 o'clock position 11 cm from the nipple did not reveal suspicious sonographic findings. LEFT BREAST: Status post reduction mammoplasty. No significant masses, suspicious calcifications or other abnormalities are seen. MM/MM tomosynthesis diagnostic RT IMPRESSION: RIGHT BREAST: Benign, no evidence of malignancy. No suspicious sonographic or mammographic findings to accounts for patient's focal pain. Clinical follow-up is recommended for the concern of focal pain. Otherwise, normal interval follow-up mammogram is recommended in 12 months. LEFT BREAST: Benign, no mammographic evidence of malignancy. Normal interval follow-up is recommended in 12 months. ASSESSMENT: BI-RADS: Category 2: Benign RECOMMENDATION: 1. Patient should be managed based on the clinical impression. 2. Otherwise, routine annual screening mammography. Results were provided to the patient at time of visit by the technologist. This patient's information was entered into a reminder system with a target due date for their next mammogram. Electronically signed by: Phill Mahoney MD 07/18/2025 05:14 PM [facility] Dictated By: Phill Mahoney MD Signed By: <Electronically signed by Phill Mahoney MD in OV> 07/18/25 1714 DD/ 1455 TD/TT: 07/18/25 1504 [employer]: Procedure Note Donotuseinterpreter, Image - [facility] [address] [place] [address] Mammography Report Signed Patient: Bozena Gupta [facility]#: [id number] : 6Acct:[id number] Age/Sex: 69 / FADM Date: 07/18/25 Loc: HO.MAMMO Attending Dr: Arturo De León MD Ordering Physician: Arturo De León MDResults: 2Benign Date of Service: 07/18/25Follow Up: 1 Year From Orig ina Mammogram Procedure(s): MM tomosynthesis diagnostic RT Accession Number(s): [id number] cc: JUSTIN LOPEZ GAMEROOM TECHNICIAN; Arturo De León MD Reason For Exam: N64.4 - Mastodynia EXAMINATION(S): 1. MM DIAGNOSTIC DIGITAL BREAST TOMOSYNTHESIS, BILATERAL 2. Targeted ultrasound of the right breast CLINICAL INFORMATION: Right breast obtained with spot at 9 o'clock position at 11 cm from the nipple and 6 o'clock position at 1 cm from the nipple. Remote history for breast reduction. COMPARISON: Comparison made to multiple prior, most recent September 21, 2024, and most remote January 15, 2017. TECHNIQUE: Digital breast tomosynthesis is performed in both the mediolateral oblique and craniocaudal views along with computer-aided detection (CAD). Synthesized 2D images are generated from the tomosynthesis. Two triangular skin markers were placed at the location of the focal pain in the right breast. FINDINGS: BREAST COMPOSITION: There are scattered areas of fibroglandular density. RIGHT BREAST: Status post reduction mammoplasty. No significant masses, suspicious calcifications or other abnormalities are seen. In particular, no suspicious mammographic findings adjacent to the triangular skin markers. Targeted ultrasound of the right breast was performed at the location of the pain as indicated by the patient. The survey centered at 6 o'clock position at 1 cm from the nipple and at 9 o'clock position 11 cm from the nipple did not reveal suspicious sonographic findings. LEFT BREAST: Status post reduction mammoplasty. No significant masses, suspicious calcifications or other abnormalities are seen. MM/MM tomosynthesis diagnostic RT IMPRESSION: RIGHT BREAST: Benign, no evidence of malignancy. No suspicious sonographic or mammographic findings to accounts for patient's focal pain. Clinical follow-up is recommended for the concern of focal pain. Otherwise, normal interval follow-up mammogram is recommended in 12 months. LEFT BREAST: Benign, no mammographic evidence of malignancy. Normal interval follow-up is recommended in 12 months. ASSESSMENT: BI-RADS: Category 2: Benign RECOMMENDATION: 1. Patient should be managed based on the clinical impression. 2. Otherwise, routine annual screening mammography. Results were provided to the patient at time of visit by the technologist. This patient's information was entered into a reminder system with a target due date for their next mammogram. Electronically signed by: Phill Mahoney MD 07/18/2025 05:14 PM [facility] Dictated By: Phill Mahoney MD Signed By: <Electronically signed by Phill Mahoney MD in OV> 07/18/25 1714 DD/ 1455 TD/TT: 07/18/25 1504 [employer]: [facility] External Provider IMG BI PROCEDURES Final Result documented in this encounter Visit Diagnoses Not on filedocumented in this encounter Additional Health Concerns Assessment Noted Time PHQ-9 Depression Total Score: 0 04/10/20 25 1:18 PM EDT documented as of this encounter Care Teams Brusher And Shearer Relationship Specialty Start Date End Date Justin Lopze ANP [address] [place] [address] PCP - General Family Medicine 10/10/21 documented as of this encounter
--- OUTSIDE RECORDS SUMMARY | 2025-07-18 17:48 | XMS_ITS | Encounter Summary ---
Author Organization [employer] Address 75 [facility] 7t [place] [address] Care Team Providers Care Industrial Economics Professor Name Role Phone Carin Bolden Primary Care Provider [phone] Reason for Visit * Reason Onset Date Comments Appointment Request 03/22/2025 Encounter Details Date Type Department Care Team ([facility] st Contact Info) Description 03/22/[address] [facility] MEDICINE 230 [place], [place] [phone] Carin Bolden ANP 230 [place], [place] [phone] Appointment Request Social History Tobacco Use Types [...] pt calling in regards to Neuropathy appt, customs entry writer attempted to schedule but did not find any30 min slot available documented in this encounter Plan of Treatment Upcoming Encounters Date Type Department Care Team (Late st Contact Info) Description 08/04/2025 1:45 PM EST Office Visit [facility] MEDICINE 230 [place] [address] Carin Bolden ANP 230 [place] [address] documented as of this encounter Visit Diagnoses Not on filedocumented in this encounter Additional Health Concerns Assessment Noted Time PHQ-9 Depression Total Score: 14 025 1:36 PM EDT documented as of this encounter Care Teams Industrial Economics Professor Relationship Specialty Start Date End Date Carin Bolden ANP [address] [place] [address] PCP - General Family Medicine 10/10/21 documented as of this encounter
--- OUTSIDE RECORDS SUMMARY | 2025-07-18 17:48 | XMS_ITS | Encounter Summary ---
Author Organization [employer] Address 75 [facility] 7t [place] [address] Care Team Providers Care Commercial Census Taker Name Role Phone Carin Bolden Primary Care Provider [phone] Encounter Details Date Type Department Care Team (Late st Contact Info) Description 07/22/2023 Abstract [facility] 230 [place], [place] [phone] Carin Bolden, ANP 230 [place], [place] [phone] Social History Tobacco Use Types Packs/Day Years [...] t he electric, gas, oil or water [employer] threatened to shut off services in your [...] 08/04/2025 1:45 PM EST Office Visit [facility] MEDICINE [address] [place] [address] Carin Bolden ANP 230 [place] [address] documented as of this encounter Visit Diagnoses Not on filedocumented in this encounter Additional Health Concerns Assessment Noted Time PHQ-9 Depression Total Score: 14 023 2:16 PM EDT documented as of this encounter Care Teams Commercial Census Taker Relationship Specialty Start Date End Date Carin Bolden ANP [address] [place] [address] PCP - General Family Medicine 10/10/21 documented as of this encounter
--- OUTSIDE RECORDS SUMMARY | 2025-07-18 17:48 | XMS_ITS | Encounter Summary ---
Author Organization [employer] Address [address] [facility] 7t [place] [address] Care Team Providers Care Manager Lab Name Role Phone Carin Bolden Primary Care Provider [phone] Reason for Visit * Reason Comments Med Refill Encounter Details Date Type Department Care Team (Late st Contact Info) Description 08/28/2023 Refill [facility] MED[facility]INE [address] [place], [place] [phone] Carin Bolden ANP [address] [place], [place] [phone] Subacute cough Social History Tobacco Use Types [...] 1:45 PM EST Office Visit [facility] MEDICINE [address] [place] [address] Carin Bolden ANP [address] [place] [address] documented as of this encounter Visit Diagnoses Diagnosis Subacute cough documented in this encounter Additional Health Concerns Assessment Noted Time PHQ-9 Depression Total Score: 14 023 2:16 PM EDT documented as of this encounter Care Teams Manager Lab Relationship Specialty Start Date End Date Carin Bolden ANP [address] [place] [phone] PCP - General Family Medicine 10/10/21 documented as of this encounter
--- OUTSIDE RECORDS SUMMARY | 2025-07-18 17:48 | XMS_ITS | Patient Health Record ---
Author Organization [employer] Address [address] [place] [address] [place] [address] Care Team Providers Care Rn Mds Name Role Phone Jenna Beebe Primary Care Provider Lou Dacosta Unavailable [phone] Reason For Referral No Information Medications Medication [...] Orally melvin y; Duration: 3 11/26/2018 Active [place] 3 1000 MG 1 capsule Orally Onc [...] 10 day(s) 12/24/2018 Active Vitamin D (Ergocalciferol) 06900 UNIT 1 capsule Orally q weekly 07/17/2017 [...] Status Risk Notes Problem Diabetic renal disease (968351498) Type 2 diabetes mellitus with diabetic chronic kidney disease (E11.22) Active confirmed Problem Diabetic cataract associated with type II diabetes mellitus (398911829) 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) Active confirmed Problem Type 2 diabetes mellitus with peripheral angiopathy (205321236) Type 2 diabetes mellitus with diabetic peripheral angiopathy without gangrene (E11.51) Active confirmed Problem Type 2 diabetes mellitus with other specified complication (E11.69) Active confirmed Problem Mixed hyperlipidemia (225533594) Mixed hyperlipidemia (E78.2) Active confirmed Problem Rotator cuff arthropathy of left shoulder (disorder) (99686232386671904 ) Other specific arthropathies, not elsewhere classified, left shoulder (M12.812) Active confirmed Problem Nontraumatic rupture of muscle or tendon structure of rotator cuff of left shoulder (disorder) (5494718766498013) Unspecified rotator cuff tear or rupture of left shoulder, not specified as traumatic (M75.102) Active confirmed Problem Fibrocystic breast changes (04115482) Diffuse cystic mastopathy of right breast (N60.11) Active confirmed Problem Long-term current use of insulin (284023430) intermediate designer current use of insulin (Z79.4) Active confirmed Problem Chronic kidney disease stage 2 (690625738) Chronic kidney disease, stage II (mild) (N18.2) Active confirmed Problem Esophageal reflux (470208644) Esophageal reflux (K21.9) Active confirmed Problem Anxiety (65231320) Anxiety (F41.9) Active confi rmed Problem Hypothyroidism (37887253) Hypothyroidism (E03.9) Active confirmed Problem Obstructive sleep apnea (67139806) Obstructive sleep apnea (G47.33) Active confirmed Problem Tear film insufficiency (02180376) Dry eye (H04.129) Active confirmed Problem Localized, primary osteoarthritis of the shoulder region (048061559) Osteoarthritis of left shoulder, unspecified osteoarthritis type (M19.012) Active confirmed Problem 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 CXR 09/23/19 19 Problem Mood disorder (35427332) Mood disorder (F39) Active confirmed Problem Shoulder joint pain (321417083) Left shoulder pain, unspecified chronicity (M25.512) Active confirmed Problem Polyneuropathy due to type 2 diabetes mellitus (073105161) Type 2 diabetes mellitus with polyneuropathy (E11.42) Active confirmed Problem Esotropia (30864732) Esotropia (H50.00) Active confirmed Problem Mild nonproliferative retinopathy due to type 2 diabetes mellitus (469221505182621) Type 2 diabetes mellitus with mild nonproliferative diabetic retinopathy without macular edema, bilateral (E11.3293) Active confirmed Problem Hypertensive heart AND chronic kidney disease with congestive heart failure (95352296536054) Hypertensive heart and chronic kidney disease with heart failure and stage 1 through stage 4 chronic kidney disease, or chronic kidney disease (I13.0) Active confirmed Problem Pulmonary hypertension (83328756) Pulmonary hypertension (I27.20) Active confirmed ECHO 12/02/19 15 Problem Cervical spondylitis (275711452) Cervical spondylitis (M46.92) Active confirmed Problem Arthropathy of lumbar facet joint (185218723) Lumbar facet arthropathy (M46.96) Active confirmed MRI lumbar 4 Problem Homocysteine level above reference range (finding) (474529918586426) Homocysteinemia (E72.19) Active confirmed Problem Heart failure (96756989) CHF (NYHA class II, ACC/AHA stage C) [...] SED RATE BY MODIFIED WESTERGREN 04/17/20 14 NAME-6-NKXXOPVPSXJFG 05/08/2014 TSH, 3RD GENERATION-Q 07/15/2013 HIV AB, [...] Comprehensive Metabolic Panel 14+eGFR-LC -Q 12/05/2014 Urinalysis, Twhxsvfz-BN-Q 12/05/2013 Urinalysis, Klzlporv-XJ-F 04/16/2018 GlycoMark(R)(1,5 AG)-LC 12/05/2013 Vitamin D 25-Hydroxy, D2 + D3-LC 016 Uric Acid, Serum-LC 12/05/2013 TSH-LC 09/05/2014 CBC With Differential/Ekxuihzn-XA-S 11/13 CBC With Differential/Tgxqypqf-FE-S 11/2017 CBC With Differential/Viuyyjsa-US-K 01/13 C-Reactive Protein (CRP)-LC 04/17/2014 C3 Complement, [...] Insured Coverage Start Date Coverage End Date [facility] [employer] [address] [address] [place] [phone] [id number] VANESSA BARKER Self - patient is the insured [facility] MEDICA[facility] [address] [place], [place] [id number] VANESSA BARKER Self - patient is the [...]
--- OUTSIDE RECORDS SUMMARY | 2025-07-18 17:48 | XMS_ITS | Encounter Summary ---
Author Organization [employer] [facility] Address [address] [place] [address] 7t [place] [address] Care Team Providers Care Commercial Retoucher Name Role Phone Carin Bolden Primary Care Provider [phone] Reason for Visit * Reason Comments Med Refill Encounter Details Date Type Department Care Team (Late st Contact Info) Description 02/19/2023 Refill [facility] MEDICINE [address] [place] [address] [phone] Valentina Escobedo MD [address] [place] [phone] Social History Tobacco Use Types Packs/Day Years [...] 1:45 PM EST Office Visit [facility] MEDICINE [address] [place] [address] [phone] Carin Bolden ANP [address] [place] [address] documented as of this encounter Visit Diagnoses Not on filedocumented in this encounter Care Teams Commercial Retoucher Relationship Specialty Start Date End Date Carin Bolden ANP [address] [place] [phone] PCP - General Family Medicine 10/10/21 documented as of this encounter
--- OUTSIDE RECORDS SUMMARY | 2025-07-18 17:48 | XMS_ITS | Clinical Summary ---
Author Organization [facility] Address [address] [place], [place] [address] Phone Care Team Providers Care Cook Dinner Name Role Phone Carin Bolden NP Primary Care Provider [phone] Allergies No known active allergies Medications aspirin [...] Does not apply route Once. 3 Active insulin aspart (NovoLOG) 100 unit/mL injection [...] other day. 15 tablet 1 5 Active Entresto 97-103 mg per tablet TAKE ONE TABLET IN THE MORNING AND EVENING 180 tablet 1 5 Active Active Problems Problem Noted Date Diagnosed Date Claudication ([facility] V24) 02/15/2025 Assessment & Plan (04/04/2025 7:18 PM EDT): The patient complains of bilateral leg discomfort with ambulation. Will order lower extremity arterial duplex to rule out the presence of PAD Orders: Vascular US duplex lower extremity arteries bilateral with JASON; Future Heart failure with reduced e jection fraction ([facility] V24, [facility] V28) 03/07/2022 Overview (09/27/2024): Last Assessment & [...] mid LAD in 2018 at [facility]. The patient had been reporting episodes of [...] every night. Depression 05/09/2010 DM (diabetes mellitus) ([facility] V24, [facility] V28 ) 05/09/2010 HTN (hypertension) 05/09/2010 Overview [...] Encounters Date Type Department Care Team Description 06/30/2025 Telephone [facility] [address] [place] [address] Nader-Rob Vilchis MD 06/21/2025 Telephone [facility] [address] [facility] [address] [place] [address] Nader-Rob Vilchis MD 06/21/2025 Telephone [facility] [address] [facility] [address] [place] [address] Nader-Rob Vilchis MD 06/21/2025 Results Follow-Up [facility] [address] [facility] [address] [place] [address] Nader-Rob Vilchis MD 06/21/2025 Telephone [facility] [address] [facility] [address] [place] [address] Nader-Rob Vilchis MD 06/16/2025 Telephone [facility] [address] [place] [address] [place] [address] Michelle Arellano NP 05/31/2025 9:00 AM EDT Ancillary Procedure [facility] [address] [place] [address] Heart failure with reduced ejection fraction (CMS/HCC V24, CMS/HCC V28) 05/03/2025 Telephone [facility] [address] [facility] [address] [place] [address] Rob Melendez MD 05/02/2025 Telephone [facility] Cardiology [facility] [place] [address] [place] [address] Rob Melendez MD 05/01/2025 12:00 PM EDT Ancillary Procedure [facility] Cardiology [facility] - [address] [place] [address] Claudication ([facility] V24) from Last 3 Months Surgical History Surgery Date Site/Laterality Comments COLONOSCOPY 2006? PROCEDURE: [facility] COLONOSCOPY FLX DX W/COLLJ SPEC WHEN PFRMD ESOPHAGOGASTRODUODENOSCOPY 05/13/2010 PROCEDURE: [place] EGD TRANSORAL BIOPSY SINGLE/MULTIPLE; COMMENT: Normal esophagus [...] History Medical History Date Comments Diabetes mellitus ([facility]/HCC V24, [facility]/HCC V28) DX:Diabetes mellitus (HCC) JEVON (obstructive sleep [...] 10:30 AM EST Consult Vascular Surgery - [place] [address] [place] [address] Jessica Randolph PA [address] [place] [address] 10/12/2025 9:50 AM EST Office Visit [facility] [address] [place] [address] Rob Melendez MD [address] [place] [address] [address] [place] [address] Health Maintenance Due Date Last Done Comments [...] 44 mL CV PACS Left Atrium Minor [place] 6.5 cm CV PACS Left Atrium Major [place] 6.2 cm CV PACS LA Area Sys [...] Area Peak Velocity 1.9 cm2 CV PACS Ascending Aorta 3.5 cm CV PACS IVC Proximal 1.9 cm CV PACS MV Deceleration [place] 3.0 m/s2 CV PACS E Wave Deceleration [...] Est. RA Pressure 3 mmHg CV PACS Aortic Root 3.2 cm CV PACS Aortic Root Index 1.58 cm/m2 CV PACS Anatomical Region Laterality Modality Ultrasound Addenda Addendum by Rob Melendez MD on 06/21/2025 3:20 PM EDT Left ventricle cavity is mildly dilated. Left ventricular systolic function is mildly decreased. EF by 2D Echevarria biplane is 44%. Mild LV global hypokinesis is present. Left ventricle mild concentric hypertrophy. Right ventricle cavity is normal. Right ventricular systolic function is normal. TAPSE 30 mm. RV S' 12 cm/sec. No significant valvular stenosis or regurgitation Aorta: There is a possible atheroma noted near the aortic root. This was also noted on prior echocardiogram from December 2023 and February 2022, but better visualized on the current study. Left Ventricle Left ventricle cavity is mildly dilated. There is mild concentric hypertrophy. Systolic function is mildly decreased. The quantitative EF by 2D Echevarria biplane is 44%. Mild global LV hypokinesis is present. There is no diastolic dysfunction. Right Ventricle Right ventricle cavity appears normal. Systolic function is normal. RV S' 12 cm/sec. Normal TAPSE (> 17 mm), measuring 30 mm. Left Atrium Left atrium cavity size is [...] is normal. There is no significant regurgitation. There is no evidence of tricuspid valve stenosis. The right ventricular systolic pressure is normal. Aortic Valve Number of aortic valve cusps cannot be determined. The leaflets are mildly thickened. There is no regurgitation or stenosis. Pulmonic Valve There is trace pulmonic valve regurgitation. There is no evidence of pulmonic valve stenosis. Ascending Aorta The aorta appears normal in size. There is a possible atheroma noted near the aortic root. This was also noted on prior echocardiogram from December 2023 and February 2022, but better visualized on the current study. Pericardium Pericardium appears normal. There is no pericardial effusion. Study Details Overall the study quality was technically difficult. Definity contrast was given to enhance imaging. us Rob Melendez MD CV ECHO PROCEDURES Austen lela Result - Final * Vascular US duplex lower extremity arteries [...] PSV 80 cm/s CV VAS LAB Left AGRISCIENCE TECHNOLOGY INSTRUCTOR prox sys PSV 83 cm/s CV VAS [...] PSV 62 cm/s CV VAS LAB Right AGRISCIENCE TECHNOLOGY INSTRUCTOR prox sys PSV 131 cm/s CV VAS [...] The mid peroneal artery has biphasic flow. Wireless Communications Engineer Details A aaron scale, color and doppler [...] PM EST Performed at: 01 - [facility] [address] [id number] Aerial Photogrammetrist: Kelley Hughes MD, Phone: [phone] Michelle Arellano NP LAB BLOOD ORDERABLES Final [...] AM EST Performed at: 01 - [facility] [address] [id number] Aerial Photogrammetrist: Kelley Hughes MD, Phone: [phone] Michelle Arellano NP LAB BLOOD ORDERABLES Final Result [facility] 1 from Last 3 Months or Most Recently Relevant to [place] [phone] [facility] MEDICARE Member Subscriber Plan / Payer (Ef fective 2022-Present) Name:Bozena Gupta Relation to Subscriber:Self Name:Bozena Osullivan Payer ID:[id number] Group ID:[id number] Type:Not on file Address: [address] [place] [id number] Care Teams Cook Dinner Relationship Specialty Start Date End Date Carin Bolden NP [address] [place] [phone] PCP - General 11/07/21
--- OUTSIDE RECORDS SUMMARY | 2025-07-18 17:48 | XMS_ITS | Encounter Summary ---
Author Organization [employer] Address [address] [facility] 7t [place] [address] Care Team Providers Care Indirect Sales Exec Name Role Phone Carin Bolden Primary Care Provider Reason for Visit * Reason Comments Med Refill Encounter Details Date Type Department Care Team (Late st Contact Info) Description 12/19/2024 Refill [facility] MEDICINE [address] [place], [place] [phone] Carin Bolden ANP [address] [place], [place] [phone] Social History Tobacco Use Types Packs/Day Years [...] Description 08/04/2025 1:45 PM EST Office Visit [facility] MEDICINE [address] [place] [phone] Carin Bolden ANP [address] [place] [address] documented as of this encounter Visit Diagnoses Not on filedocumented in this encounter Additional Health Concerns Assessment Noted Time PHQ-9 Depression Total Score: 14 025 1:36 PM EDT documented as of this encounter Care Teams Indirect Sales Exec Relationship Specialty Start Date End Date Carin Bolden ANP [address] [place] [phone] PCP - General Family Medicine 10/10/21 documented as of this encounter
--- OUTSIDE RECORDS SUMMARY | 2025-07-18 17:48 | XMS_ITS | Clinical Summary ---
Author Organization [employer] Address [address] [facility] [address] [place] [address] Care Team Providers Care Property Investor Name Role Phone Justin Lopez JOSE CRUZ Primary Care Provider [phone] Allergies No known active allergies Medications * [...] by mouth at bedtime. 12/26/19 23 Active Almacone Double Strength 400-400-40 MG/5ML suspension [...] 1 tablet by mouth at bedtime. Purchases [facility] Active Blood Glucose Monitoring Suppl (MyParichay Lite) w/Device kit Use to test blood [...] penIndications:Typ e 2 diabetes mellitus with hyperlipidemia (HCC) INJECT 20 UNITS SUBCUTANEOUSLY BEFORE MEALS IF BG is >200. INJECT 30 UNITS BEFORE MEALS IF BG is >300 60 mL 5 04/14/20 25 Active Easy Touch Lancets 33G/Twist miscIndications:Ty pe 2 diabetes mellitus with hyperlipidemia (HCC) TEST BLOOD SUGAR THREE TIMES DAILY 100 each 04/14/20 25 Active Alcohol Swabs (Alcohol Prep) 70 % padsIndications:Ty pe 2 diabetes mellitus with hyperglycemia, with long-term current use of insulin (HCC) USE ONCE DAILY 100 each 04/14/20 25 Active FREESTYLE LITE test stripIndications:T ype 2 diabetes mellitus with diabetic polyneuropathy, with long-term current use of insulin ([facility]) TEST BLOOD SUGAR THREE TIMES DAILY DIRECTED 100 strip 5 04/14/20 25 Active carvedilol (Coreg) 6.25 MG tabletIndications: Heart failure with reduced ejection fraction (HCC) TAKE ONE TABLET IN THE MORNING AND EVENING 30 tablet 3 04/14/20 25 Active insulin pen needle (Easy Touch Pen [place]) 31G x 6 mm miscIndications:Ty pe 2 diabetes mellitus with diabetic polyneuropathy, with long-term current use of insulin (HCC) USE THREE DAILY 100 each 04/14/20 25 Active Multiple Vitamin (Multivitamin) tablet TAKE 1 TABLET EVERY MORNING WITH FOOD 90 tablet 3 06/14/20 25 Active Active Problems Problem Noted Date [...] pt reports had left knee surgery in [place] in 2016,denies following here w any orthopedic [...] polypectomy versus endometrial biopsy On: TBD By: BUSINESS BANKING OFFICER Anesthesia: General After careful review of patient's [...] 9:29 AM EST): Under the care of Unit Clerk Rob Doe. Last seen 04/2023. Last ECHO [...] Coronary artery disease 08/17/2023 08/17/20 Overview (02/10/2024): Unit Clerk Dr. Doe Baseline ECG: SR, possible prior [...] use of insulin 06/03/2012 08/17/2023 Overview (02/10/2024): [facility] [place] [facility] endocrinology Metformin XR 500mg 2 tabs [...] on Carvedilol once daily ( as per Unit Clerk) Once cleared by Cardiology the instruction is for patient to take her Carvedilol with a sip of water the morning of the procedure to prevent her BP from going up. Hypertriglyceridemia 06/03/2012 Hypothyroidism 06/03/2012 Obstructive sleep apnea syndrome 06/03/2012 Postmenopausal bleeding 06/03/2012 Resolved Problems Problem Noted Date Diagnosed Date Resolved Date Depression, recurrent 08/17/2023 08/17/20232024 Encounters Date Type Department Care Team Description 07/18/2025 Orders Only [facility] External Provider, [facility] [place] 06/14/2025 Refill [facility] [address] [place] [address] Justin Lopez ANP 06/09/2025 Telephone [facility] [address] [place] [address] Justin Lopez ANP chart prep 06/08/2025 Telephone [facility] [address] [place] [address] Justin Lopez ANP Appointment Request; Referral 06/06/2025 Orders Only GENERIC EXTERNAL DATA DEPARTMENT Provider, Generic External Data 05/09/[address] [address] Justin Lopez ANP image order 04/26/2025 3:30 PM EDT Office Visit [address] [address] Justin Lopez ANP Type 2 diabetes mellitus with diabetic polyneuropathy, with long-term current use of insulin ([facility]) (Primary Dx); Hypothyroidism, unspecified type; Closed fracture of left foot, sequela; Screening for osteoporosis; Low back pain radiating to left leg; Frequent falls 04/26/2025 Travel 04/25/[address] [address] Justin Lopez ANP CHART PREP 04/25/2025 Orders Only GENERIC EXTERNAL DATA DEPARTMENT Provider, Generic External Data 04/19/[address] [address] Justin Lopez ANP Durable Medical Equipment; Prior Authorization from Last 3 Months Immunizations Immunization Administration [...] your housing situation today? I have rena kamari 04/10/[address] you li [...] Description 08/04/2025 1:45 PM EST Office Visit [facility] [address] [place], [place] [phone] Justin Lopez, ANP [address] [place] [phone] Health Maintenance Due Date Last Done Comments [...] 07/27/2025 025, 11/30/2024, 07/21/2024, Additional history exists Diabetes: Urine Protein Screening 01/16/2026 01/16/2025, 11/30/2024, 10/26/2023, Additional history exists Lipid Panel 01/16/2026 01/16/2025, 11/12, 10/26/2023, Additional history exists Alcohol/Substance Use Screening 04/10/2026 04/10/2025 Depression Screening 04/10/2026 04/10/2025, 04/10/20 SDOH Screening 04/10/2026 04/10/2025 Tobacco Screening 04/26/2026 04/26/2025 Mammogram 07/18/2026 07/18/2025, 04/2025, 09/21/2024, Additional history exists HPV/Cotest 11/25/2026 11/25/2021, 11/12, 11/25/2021, Additional history [...] TOMOSYNTHESIS RIGHT Routine 07/18/2025 2:55 PM EST GLUCOSE, WHOLE BLOOD Routine 06/06/2025 11:25 AM EDT POCT GLYCATED HEMOGLOBIN, TOTAL Routine 04/26/2025 3:45 PM EDT Type 2 diabetes mellitus with diabetic polyneuropathy, with long-term current use of insulin ([facility]) POCT GLUCOSE Routine 04/26/2025 3:44 PM EDT Type 2 diabetes mellitus with diabetic polyneuropathy, with long-term current use of insulin ([facility]) GLUCOSE, WHOLE BLOOD Routine 04/25/2025 11:07 AM EDT ALBUMIN, RANDOM URINE W/CREATININE Routine 01/16/2025 10:05 AM EDT LIPID PANEL, STANDARD Routine 01/16/2025 10:05 AM EDT PROPHYLAXIS - ADULT Routine 04/02/2023 1 :00 PM EDT Encounter for dental examination PERIODIC ORAL EVALUATION - ESTABLISHED PATIENT Routine 04/02/2023 1:00 PM EDT HM COLONOSCOPY Routine 08/27/2022 PAP/HPV Routine 11/25/2021 from Last 3 Months or Most Recently Relevant to Health Maintenance Results * BI Mammogram Diagnostic Tomosynthesis Right (07/18/2025 2:55 PM EST) Anatomical Region Laterality Modality Breast Right Mammography 07/18/2025 2:55 PM EST Narrative 07/18/2025 5:16 PM EST [facility] [address] [place] [address] [place] [address] Mammography Report Signed Patient: Bozena Gupta MR#: [id number] : 1955 Acct:[id number] Age/Sex: 69 / F ADM Date: 07/18/25 Loc: HO.MAMMO Attending Dr: Arturo De León MD Ordering Physician: Arturo De León MD Results: 2Benign Date of Service: 07/18/25 Follow Up: 1 Year From Orig ina Mammogram Procedure(s): MM tomosynthesis diagnostic RT Accession Number(s): [id number] cc: JUSTIN LOPEZ PROPOSAL REP; Arturo De León MD Reason For Exam: [...] by: Phill Mahoney MD 07/18/2025 05:14 PM EST Dictated By: Phill Mahoney MD Signed By: <Electronically signed by Phill Mahoney MD in OV> 07/18/25 1714 DD/ 1455 TD/TT: 07/18/25 1504 Business Process Manager: Procedure Note Donotuseinterpreter, Image - 07/18/2025 [facility] [address] [place] [address] Mammography Report Signed Patient: Bozena Gupta [facility]#: [id number] : 6Acct:[id number] Age/Sex: 69 / FADM Date: 07/18/25 Loc: HO.MAMMO Attending Dr: Arturo De León MD Ordering Physician: Arturo De León MDResults: 2Benign Date of Service: 07/18/25Follow Up: 1 Year From [facility] Mammogram Procedure(s): MM tomosynthesis diagnostic RT Accession Number(s): [id number] cc: JUSTIN LOPEZ NP; Arturo De León [...] MD 07/18/2025 05:14 PM [facility] Dictated By: Phill Mahoney MD Signed By: <Electronically signed by Phill Mahoney MD in OV> 07/18/25 1714 DD/ 1455 TD/TT: 07/18/25 1504 Business Process Manager: [facility] External Provider IMG BI PROCEDURES Final Result * (ABNORMAL) Glucose, Whole Blood (06/06/2025 11:25 AM EDT) Only the most recent of2 resultswithin the time period is included. Glucose, Whole Blood 126(H) 60 - 115 mg/dL [facility] Comment:METER #: [id number] Testing performed in the Endocrinology Department [address] , [address], [facility]. 06/06/2025 11:2 5 AM EDT 06/06/2025 11:30 AM EDT Generic External Data Provider LAB BLOOD ORDERAB LES Final Result [facility] [address] [place] [phone] * (ABNORMAL) POCT HGB A1C (04/26/2025 [...] Media Lot # [id number] Lot# Expiration Date [id number] Blood Capillary blood specimen / Unknown 04/26/2025 3:44 PM EDT Justin [place] POINT OF CARE TEST ENTER/EDIT OR DERABLES Final Result * (ABNORMAL) Albumin, Random Urine W/Creatinine (01/16/2025 10:05 AM EDT) Creatinine, Urine 59.94 mg/dL [facility] Microalbumin Urine 133.0 mg/L H [facility] Microalbum Creatinine Ratio Ur 221.8(H) <30 ug/mg cr [facility] Comment:Albumin/Creatinine R atio Reference Ranges: Normal: < 30 ug/mg creatinine Microalbuminuria: 30 - 300 ug/mg creatinineClinical Albuminuria: > 300 ug/mg creatinine 01/16/2025 10:0 5 AM EDT 01/16/2025 10:23 AM EDT us Generic External Data Provider LAB URINE ORDERAB LES Final Result Performing Organization Address [facility] Co de Phone Number [facility] [address] [place] [phone] * Lipid Panel, Standard (01/16/2025 10:05 AM EDT) Triglycerides 122 <150 mg/dL [facility] Comment:Desirable Triglyceri de: less than 150 mg/dLBorderline High Triglyceride 150-199 mg/dLHigh Triglyceride: 200-499 mg/dLVery High Triglyceride: greater than or equal to 5OO mg/dL Cholesterol 125 <200 mg/dL [facility] Comment:Desirable Cholestero l: less than 200 mg/dLBorderline High Cholesterol: 200-239 mg/dLHigh Cholesterol: greater than 239 mg/dL LDL Cholesterol Calculated 57 <100 mg/dL [facility] Comment:Desirable LDL: less than 100 mg/dLNear Optimal/Above Optimal LDL: 110- 129 mg/dLBorderline High LDL: 130-159 mg/dLHigh LDL: 160-189 mg/dLVery High LDL: greater than or equal to 190 mg/dL HDL Cholesterol 44 >40 mg/dL [facility] Comment:Desirable HDL: great er than 40 mg/dL Note: This HDL assay may give artificially low results in patients with liver disease. 01/16/2025 10:0 5 AM EDT 01/16/2025 10:05 AM EDT us Generic External Data Provider LAB BLOOD ORDERAB LES Final Result Performing Organization Address City/[facility]/ZIP Co de Phone Number [facility] [address] [place] [phone] * Hm Colonoscopy (08/27/2022) Colonoscopy Normal Normal [...] Most Recently Relevant to Health Maintenance Insurance [employer] [id number] * Guarantor: Bozena Gupta Account Type Relation to Patient Date of Phone Billing Address Personal/Family Self [address] Care Teams Property Investor Relationship Specialty Start Date End Date Justin Lopez ANP [address] [place] [address] PCP - General Family Medicine 10/10/21
== END 2025-07-18 14:45 | disposition home or self-care (01) ==
LOC: HO.MAMMO 14:44
PROVIDERS: PCP Nurse Practitioner Primary Care; Visit Provider Obstetrics & Gynecology
DX: N64.4 Mastodynia (principal)
CPT/HCPCS: 76642; 77061; 77065

== ENCOUNTER → 2025-07-18 15:00 | Outpatient (BNV) | payer OTHER, SELFPAY | PROVIDERS: PCP Nurse Practitioner Primary Care; Visit Provider Radiology Body Imaging | DX: N64.4 Mastodynia (principal) | CPT/HCPCS: 76642; 77065; G0279 ==

== ENCOUNTER 2025-07-26 12:58 | Outpatient (AMB) | payer OTHER, SELFPAY ==
--- OUTSIDE RECORDS SUMMARY | 2025-03-25 04:00 | XMS_ITS ---
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 Role Phone Migration, Provider Unavailable [phone] REASON FOR VISIT EMR-Edgar Encounters Encounter Location [place] [address] [id number] 03/25/2025 Provider Migration Plan Of Treatment Medication Medication Name Sig Start Date Stop Date Notes Trulicity Route: subcutaneous Frequency: ONCE A WEEK(VOUCHER) Take: 0.5 ml 06/08/2019 07/14/2019 Status: Taking Original Code: [address]-30 Brand: Trulicity *Pick strength-form from [employer] for eRX* True Metrix Meter Route: in vitro Frequency: 2 times a day Take: as directed Quantity: 1 03/20/2021 03/20/2021 Status: Stop Origin al Code: 8528-507993 Brand: True Metrix Meter Aspirin Adult Low Dose 81 MG Route: Orally Frequency: Once a day Take: 1 tablet Oral 07/05/2021 07/05/2021 Status: Taking Original Code: [address]-02 Brand: Aspir-81 Soliqua 100-33 UNT-MCG/ML Route: once daily Frequency: once daily Take: 25 units at breakfast Subcutaneous 06/12/2020 06/12/2020 Status: Taking Original Code: [address]-84 Brand: Soliqua TRUE METRIX Route: in vitro Frequency: twice a day Take: strips Quantity: 200 09/02/2019 09/05/2019 Status: Taking Original Code: [id number] Brand: TRUE METRIX GLUCOSE TEST STRIP Gen: blood sugar diagnostic *Reorder from [employer] for eRx and Interaction Alerts* True Metrix Blood Glucose Test Route: In Vitro Frequency: three times a day Take: as directed Quantity: 300 05/24/2020 05/24/2020 Status: Refill Original Code: 8528-734994 Brand: True Metrix Blood Glucose Test *Pick strength-form from [employer] for eRX* Insulin Syringes (Disposable) Route: in vitro Frequency: twice a day Take: as directed 01/24/2020 01/24/2020 Status: Stop Brand: Insulin Syringes (Disposable) Lancets 30G Route: in vitro Frequency: 4 per day Take: as directed Quantity: 360 05/24/2020 05/24/2020 Status: Taking Original Code: [id number] Brand: LANCETS Gen: lancets [place] 01/27 Route: subcutaneos Frequency: once a day Take: as directed Quantity: 90 07/11/2020 07/11/2020 Status: Discontinued Original Code: [id number] Brand: PEN NEEDLES Gen: pen needle, diabetic CVS Probiotic - Route: Orally Frequency: Every 8 hours Take: 1 capsule Quantity: 45 Capsule Oral 02/26/2020 03/12/2020 Status: Taking Original Code: [address]-45 Brand: CVS Probiotic Spironolactone 25 MG Route: Orally Frequency: Once a day Take: 1/2 tablet Oral 07/05/2021 07/05/2021 Status: Taking Original Code: [id number] Brand: SPIRONOLACTONE Gen: spironolactone Sulfamethoxazole-Trime thoprim 800-160 MG Route: Oral Take: TAKE 1 TABLET BY MOUTH TWICE DAILY Quantity: 28 Oral 05/30/2021 05/30/2021 Status: Unknown Original Code: [id number] Brand: SULFAMETHOXAZOLE-TRIM ETHOPRIM Gen: sulfamethoxazole/trim ethoprim Terbinafine HCl Route: Orally Frequency: Once a day Take: 1 tablet Quantity: 10 03/12/2021 03/22/2021 Status: Taking Original Code: [address]-40 Brand: Terbinafine HCl *Pick strength-form from [employer] for eRX* Vancomycin HCl in Dextrose 500-5 MG/100ML Route: IVPB Frequency: q24 hours Take: 1500mg/DSW 250 ml Intravenous 04/10/2021 04/10/2021 Status: Unknown Original Code: [address]-04 Brand: Vancomycin HCl in Dextrose Insulin Syringe Route: subcutaneous Frequency: twice a day Take: as directed Quantity: 60 01/24/2020 01/24/2020 Status: Taking Original Code: [id number] Brand: INSULIN SYRINGE Gen: syringe and needle,insulin,1mL Sertraline HCl 50 MG Route: Orally Frequency: Once a day Take: 1 tablet Oral 03/26/2021 03/26/2021 Status: Taking Original Code: [address]-72 Brand: Sertraline HCl Silver sulfADIAZINE Route: Externally Frequency: Once a day Take: 1 application to affected area Quantity: 25 Gram 05/31/2019 06/05/2019 Status: Taking Original Code: [address]-83 Brand: Silver sulfADIAZINE *Pick strength-form from [employer] for eRX* Dzsxyjbu-Veauegjpw-Jnr ameth 0.1 % Route: Ophthalmic Frequency: Four times a day Take: 1 drop into both eyes Quantity: 1 Bottle Ophthalmic 04/16/2021 04/16/2021 Status: Unknown Original Code: [address]-02 Brand: Pwixixns-Yslxcfdhs-Vn xameth NovoLIN 70/30 (70-30) 100 UNIT/ML Route: Subcutaneous Frequency: three time all day Take: 20 units Quantity: 1800 Subcutaneous 05/25/2019 05/25/2019 Status: Discontinued Original Code: [address]-37 Brand: NovoLIN 70/30 Santyl 250 UNIT/GM Route: External Take: APPLY OINTMENT TOPICALLY ONCE DAILY Quantity: 90 g External 07/05/2021 07/05/2021 Status: Unknown Original Code: [id number] Brand: SANTYL Gen: collagenase Clostridium hist. Mupirocin 2 % Route: Externally Frequency: twice daily Take: 1 application Quantity: 1 External 02/18/2020 02/25/2020 Status: Taking Original Code: [address]-34 Brand: Mupirocin Levothyroxine Sodium 150 MCG Route: Orally Frequency: Once a day Take: 1 tablet on an empty stomach in the morning Quantity: 90 Oral 07/05/2021 07/05/2021 Status: Unknown Original Code: [address]-63 Brand: Levothyroxine Sodium Loratadine 10 MG Route: Orally Frequency: Once a day Take: 1 tablet Quantity: 30 Oral 06/28/2021 07/28/2021 Status: Taking Original Code: [address]-36 Brand: Loratadine Losartan Potassium-HCTZ 100-25 MG Route: Orally Frequency: Once a day Take: 1 tablet Oral 11/22/2019 11/22/2019 Status: Shahzad Baron l Code: [address]-88 Brand: Losartan Potassium-HCTZ metFORMIN HCl 1000 MG Route: Orally Frequency: TWICE a day Take: 1 tablet with a meal Oral 03/14/2019 03/14/2019 Status: Taking Original Code: [address]-54 Brand: metFORMIN HCl Ketoconazole Route: Externally Frequency: bi weekly Take: 1 application to scalp as needed Quantity: 1 07/26/2019 07/26/2019 Status: Unknown Original Code: [id number] Brand: KETOCONAZOLE Gen: ketoconazole *Pick strength-form from [employer] for eRX* Lantus 100 UNIT/ML Route: Subcutaneous Take: 50 units am and 30 units pm Subcutaneous 07/10/2020 07/10/2020 Status: Shahzad Baron l Code: [address]-83 Brand: Lantus levoFLOXacin 500 MG Route: Orally Frequency: Once a day Take: 1 tablet Quantity: 10 Oral 02/26/2020 03/07/2020 Status: Taking Original Code: [address]-60 Brand: levoFLOXacin HumaLOG 100 UNIT/ML Route: Subcutaneous Frequency: tid Take: 10 u 15 minutes around meals Injection 02/21/2020 02/21/2020 Status: Discontinued Original Code: [address]-79 Brand: HumaLOG Irbesartan-hydroCHLORO thiazide 300-12.5 MG Route: Orally Frequency: Once a day Take: 1 tablet Oral 11/22/2019 11/22/2019 Status: Taking Original Code: [address]-90 Brand: Irbesartan-hydroCHLOR Othiazide Gentamicin Sulfate 0.1 % Route: Externally to right 3rd toe lesion Frequency: once a day Take: 1 application on left 3rd toe once daily External 04/10/2021 04/10/2021 Status: Taking Original Code: [address]-54 Brand: Gentamicin Sulfate Glimepiride 4 MG Route: Orally Frequency: Once a day Take: 1 tablet with lunch Oral 03/14/2019 03/14/2019 Status: Discontinued Original Code: 83636594492 Brand: GLIMEPIRIDE Gen: glimepiride Fluticasone Propionate 50 MCG/ACT Route: Nasally Frequency: Once a day Take: 1 spray in each nostril Quantity: 1 Bottle Nasal 06/28/2021 06/28/2021 Status: Taking Original Code: [address]-05 Brand: Fluticasone Propionate Furosemide 20 MG Route: Orally Frequency: Once a day Take: 1 tablet Oral 07/05/2021 07/05/2021 Status: Taking Original Code: [address]-31 Brand: Furosemide Gabapentin Route: Orally Frequency: Once a day Take: 1 capsule Quantity: 90 Capsule 08/29/2019 08/29/2019 Status: Discontinue d Original Code: [address]-64 Brand: Gabapentin *Pick strength-form from [employer] for eRX* Clobetasol Propionate 0.05 % Route: Externally Frequency: Twice a day Take: 1 application to affected area Quantity: 1 External 08/29/2019 08/29/2019 Status: Unknown Original Code: [address]-65 Brand: Clobetasol Propionate Clopidogrel Bisulfate Route: Orally Frequency: Once a day Take: 1 tablet 07/05/2021 07/05/2021 Status: Taking Original Code: [address]-93 Brand: Clopidogrel Bisulfate *Pick strength-form from [employer] for eRX* Diclofenac Sodium 1 % Route: Transdermal Frequency: Twice a day Take: 1 application to affected area Quantity: 100 External 03/14/2019 06/10/2019 Status: Discontinued Original Code: [address]-64 Brand: Diclofenac Sodium Doxycycline Hyclate 100 MG Route: Orally Frequency: Twice a day Take: 1 tablet Oral 04/10/2021 05/03/2021 Status: Taking Original Code: [address]-24 Brand: Doxycycline Hyclate Ciprofloxacin HCl 500 MG Route: Orally Frequency: every 12 hrs Take: 1 tablet Quantity: 14 Tablet Oral 06/28/2021 07/05/2021 Status: Taking Original Code: [address]-00 Brand: Ciprofloxacin HCl Carvedilol 6.25 MG Route: Orally Frequency: two times a day Take: 1 tablet Oral 07/05/2021 07/05/2021 Status: Taking Original Code: [address]-23 Brand: Carvedilol Cefepime HCl 2 GM Route: Intravenous Frequency: every 12 hrs Take: 50 ml Intravenous 04/10/2021 04/10/2021 Status: Unknown Original Code: [address]-96 Brand: Cefepime HCl Cephalexin 500 MG Route: Orally Frequency: every 12 hrs Take: 1 capsule Quantity: 20 Oral 02/21/2020 03/02/2020 Status: Discontinued Original Code: [address]-69 Brand: Cephalexin Amoxicillin 500 MG Route: Orally Frequency: every 12 hrs Take: 1 capsule Quantity: 20 Oral 02/18/2020 02/28/2020 Status: Discontinued Original Code: [address]-64 Brand: Amoxicillin Atorvastatin Calcium 20 MG Route: Orally Frequency: Once a day Take: 1 tablet Quantity: 90 Tablet Oral 07/05/2021 07/05/2021 Status: Unknown Original Code: [address]-10 Brand: Atorvastatin Calcium Progress Notes * Bozena GUPTA NDOB:1955 (69 yo F)Acc No.[id number]:03/25/2025 Patient: Deonna YBARRA Bozena GALLEGO N :1955 A ge:69 Y S ex:Female Phone: Address:[address] [place] [address], [place], [address] * Refills Stop Amoxicillin Capsule, 500 MG, [...] daily Take: 1 application Quantity: 1 Stop Zaaqmhsk-Fkbjxefez-Nklszfud Suspension, 0.1 %, Ophthalmic, 1, Route: Ophthalmic [...] Take: as directed Quantity: 360 Stop [place] 5/16 , 90, Route: subcutaneos Frequency: once [...]
--- OUTSIDE RECORDS SUMMARY | 2025-03-26 04:00 | XMS_ITS ---
Author Organization Franco Cerda e [facility] Address [address] [phone] Care Team Providers Care Newspaper Illustrator Name Role Phone Migration, Provider Unavailable [phone] REASON FOR VISIT [facility] [place] Encounter Location Date Provider Diagnosis Franco [facility] [facility] [address] [id number] 03/26/2025 Provider Migration Plan Of Treatment No Information Progress Notes * Bozena BARKER NDOB:1955 (69 yo F)Acc No.[id number]:03/26/2025 Patient: Deonna BELLTO Bozena N :1955 A ge:69 Y S ex:Female Phone: Address:[place], [address] Subjective: * Chief Complaints: * E MR-Edgar * Medical History: * Surgical History: Sx_Procedure : BREATHING CAPACITY TEST 2018 Sx_Procedure : ELECTROCARDIOGRAM COMPLETE 2018 Sx_Procedure : Inj mepivacaine HCL/10 ml 2018 Sx_Procedure : INJ TRIGGER POINT, /2 MUSCL 2018 Sx_Procedure : Lidocaine inj 2018 Sx_Procedure : Vitamin b12 injection 2018 Sx_Procedure : X-RAY EXAM OF FOOT 2019 Sx_Procedure : LOWER EXTREMITY STUDY 2019 Sx_Procedure : Quantiflo-Single Layer 2019 Sx_Procedure : TTE W/DOPPLER COMPLETE 2019 Sx_Procedure : EXTRACRANIAL BILAT STUDY 2019 Sx_Procedure : EXTREMITY STUDY 2019 Sx_Procedure : INFRARED THERAPY 2019 Sx_Procedure : Ceftriaxone sodium inj 2019 * Hospitalization/Major Diagno stic Procedure: * Medications: Objective: * Vitals: * Physical Examination: Assessment: Plan: * Treatment: * Procedure Codes: * * Date:
--- OUTSIDE RECORDS SUMMARY | 2025-07-21 10:30 | XMS_ITS | Encounter Summary ---
Author Organization [facility] Address [address] [place] [address] Care Team Providers Care Electrical Journeyman Name Role Phone Carin Bolden NP Primary Care Provider [phone] Reason for Referral * Imaging (Routine) - Pending Review Specialty Diagnoses / Procedures Referred By Faraz luna Referred To Contact Diagnoses PAD (peripheral artery disease) (CMS/HCC V24) Procedures Vascular US duplex lower extremity arteries bilateral with JASON Jessica Randolph PA [address] [place] [address] Phone: tel: fax: [facility] [address] [place] [address] [address] [place], [place] Referral ID Status Reason Start Date Expiration Date V isits Requested Visits Authorized [id number] Pending Review 07/21/2025 07/21/2026 1 1 Reason for Visit * Reason Comments Peripheral Vascular Disease * Consultation (Routine) - Pending Review Specialty Diagnoses / Procedures Referred By Faraz luna Referred To Contact Vascular Surgery Diagnoses Peripheral arterial disease ([facility]/HCC V24) Rob Melendez MD [address] [place] [address] [address] [place] [address] Phone: tel: fax: Kenneth Schrader MD [address] [facility] [address] [place] [address] Phone: tel: fax: Referral ID Status Reason Start Date Expiration Date Visits Requested Visits Authorized [id number] Pending Review Specialty Services Required 05/03/2025 05/03/2026 1 1 Encounter Details Date Type Department Care Team (Late st Contact Info) Description 07/21/2025 10:30 AM EST Consult Vascular Surgery - [place] [address] [place] [address] Jessica Randolph PA [address] [place] [phone] PAD (peripheral artery disease) ([facility] V24) (Primary Dx); Type 2 diabetes mellitus with diabetic neuropathy, 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 ([facility] V24, [facility] V28) Social History Tobacco Use Types Packs/Day Years [...] Sign Reading Time Taken Comments Blood Pressure 131/80 07/21/2025 10:16 AM EST Pulse 134 07/21/2025 10:16 AM EST Temperature - - Respiratory Rate - - Oxygen Saturation - - Inhaled Oxygen Concentration - - Weight 92.3 kg (203 lb 6.4 oz) 07/21/2025 10:16 AM EST Height 170.2 cm (5' 7 ) 07/21/2025 10:16 AM EST Body Mass Index 31.86 07/21/2025 10:16 AM EST documented in this encounter Progress Notes * RAINER Mensah - 07/21/2025 10:30 AM EST PATIENT: Bozena Osullivan ENCOUNTER: 07/21/2025 EMRN: [id number] : 1955 PCP: Carin Bolden NP CHIEF COMPLAINT: Peripheral Vascular Disease HPI: This 69 y.o. Mauritanian speaking female with history of CAD s/p cardiac stent, hypertension, hyperlipidemia, obesity, JEVON, DM type 2 with neuropathy, hypothyroidism, presents for evaluation of PAD. Patient had reported claudication at her cardiology appointment in February, therefore an arterial duplex was ordered and performed in April. See findings below. Patient reports that she experiences crampingand fatigue diffusely throughout her legs from the time she wakes up in the morning and persists throughout the day. She does feel it is worse with exertion. However, patient does exercise at least three times per week. She is able to walk 25-30 minutes on the treadmill without having to stop. She has neuropathy in her lower legs and feet bilaterally. The left leg is slightly worse than the right. She denies rest pain in feet, ulcers or gangrene. She reports a history of ulcer/wound to her right 3rd toe in which she was treated with several months of antibiotics in [place] in either 2018 or 2020. She has a history of bilateral leg vein procedures which sounds like sclerotherapy. No history of DVT. She is on aspirin and a statin. She is a non-smoker. [place] [facility] director of community education ID # [id number] utilized during patient encounter. PAST MEDICAL HISTORY: Problem List[1] PAST SURGICAL HISTORY: Surgical History[2] MEDICATIONS: Medications Taking[3] ALLERGIES: Current Allergies[4] SOCIAL HISTORY: Social History[5] FAMILY HISTORY: Family History[6] ROS: GENERAL: No malaise, significant weight loss or fever NECK: No lumps, goiter, pain or significant neck swelling RESPIRATORY: No cough, wheezing or shortness of breath CARDIAC: No chest pain or palpitations GI: No abdominal discomfort MUSCULOSKELETAL: SEE HPI SKIN: No lesions, rash or itching NEURO: No persistent headache, syncope, seizures, weakness or numbness VASCULAR: SEE HPI PHYSICAL EXAM: Vitals: 07/21/25 1016 BP: 131/80 BP Location: Right arm Patient Position: Sitting Pulse: (!) 134 Weight: 92.3 kg (203 lb 6.4 oz) Height: 1.702 m (67 ) General: Alert and oriented x 3, no acute distress, well-nourished HEENT: Normocephalic atraumatic Neck: No JVD Chest: Respiratory effort normal Cardiac: Regular rate rhythm Abdomen: Soft, nontender, nondistended, no widened aortic pulse Extremities: -Right upper extremity: 2+ radial artery pulses palpable. -Left upper extremity: 2+ radial artery pulses palpable. -Right lower extremity: 2+ femoral artery and DP pulses palpable. No PT pulse palpable. Foot warm. No ulcers or gangrene. No edema. Small spider veins present on thigh and calf. -Left lower extremity: 2+ femoral artery and DP pulses palpable. No PT pulse palpable. Foot warm. No ulcers or gangrene. No edema. Small spider veins present on thigh and calf. Integumentary: No wounds Neuro: Grossly intact DIAGNOSTIC TESTING: Bilateral lower extremity arterial duplex, [facility], 05/01/25: Right: JASON 1.19. Normal amplitude PVR waveform [...] calf with mild tibial arterial occlusive disease. I independently reviewed the studies along with the images. ASSESSMENT: 1. PAD (peripheral artery disease) ([facility] V24) 2. 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 Mauritanian speaking non-smoker female with PAD. Patient reports diffuse cramping and fatigue in her legs from the time she wakes up in the morning and persists throughout the day. Symptoms are worse with exertion, however she is able to walk 25-30 minutes on the treadmill multiple times per week without having to stop and rest. She denies rest pain in feet/toes, ulcers or gangrene. We reviewed arterial duplex from April 2025 which revealed bilateral 20-49% SFA stenosis and 50-99% popliteal artery stenosis. There is 3 vessel runoff in the calf bilaterally. She has palpable DP pulses on exam. Given that patient does not appear to have lifestyle limiting claudication or critical limb ischemia, plan to hold on intervention at this time. Recommend repeat arterial duplex in 3 months with follow up once imaging has been completed for re-evaluation of her symptoms and to review results. Patient to continue daily aspirin and a statin. She was instructed to contact the office should she develop rest pain in toes, ulcers or gangrene. We discussed the natural pathophysiology of PAD. I spent 35 minutes in an encounter with this patient, including time spent with patient, chart review, reviewing diagnostic studies, and documentation. [1] Patient Active Problem List Diagnosis CAD (coronary artery disease) Depression DM (diabetes mellitus) ([facility] V24, [facility] V28) Heart failure with reduced ejection fraction ([facility] V24, [facility] V28) HTN (hypertension) Hyperlipidemia Hypothyroid JEVON (obstructive sleep apnea) Claudication ([facility] V24) [2] Past Surgical History: Procedure Laterality Date COLONOSCOPY 2006? PROCEDURE: DC COLONOSCOPY FLX DX W/COLLJ SPEC WHEN PFRMD ESOPHAGOGASTRODUODENOSCOPY 05/13/2010 PROCEDURE: DC EGD TRANSORAL BIOPSY SINGLE/MULTIPLE; COMMENT: Normal esophagus mucosa-biopsy:normal,small hiatal hernia, gastritis-biopsy:mild reactive gastropathy(HPylori-), nl duodenum-biopsy:increased intraepithelial T lymphocytes suggesting Celiac sprue Anderson Stage I KNEE SURGERY 2018 PROCEDURE: HISTORICAL KNEE SURGERY OTHER SURGICAL HISTORY PROCEDURE: HISTORY OTHER; COMMENT: Toe amputation on R foot OTHER SURGICAL HISTORY PROCEDURE: HISTORY OTHER; COMMENT: Breast reduction TUBAL LIGATION Bilateral PROCEDURE: HISTORICAL TUBAL LIGATION [3] No outpatient medications have been marked as taking for the 07/21/25 encounter (Consult) with RAINER Mensah. [4] No Known Allergies [5] Social History Tobacco Use Smoking status: Never Smokeless tobacco: Never Substance Use Topics Alcohol use: No Drug use: No [6] No family history on file. documented in this encounter Plan of Treatment Upcoming Encounters Date Type Department Care Team (Late st Contact Info) Description 08/21/2025 1:00 PM EST Appointment [facility] CT Scan [address] [place] [address] 10/12/2025 9:50 AM EST Office Visit [facility] [address] [facility] [address] [place] [phone] Rob Melendez MD [address] [place] [address] [address] [place] [phone] 10/23/2025 9:00 AM EST Office Visit Vascular Surgery - [place] [address] [place] [phone] Kenneth Schrader MD [address] [place] [phone] Scheduled Orders Name Type Priority Associated Diagnoses Orde r Schedule Vascular US duplex lower extremity arteries bilateral with JASON Vascular Ultrasound Routine PAD (peripheral artery disease) ([facility] V24) Expected: 09/20/2025, Expires: 07/21/2026 documented as of this encounter Visit Diagnoses Diagnosis PAD (peripheral artery disease) ([facility] V24)- Primary Unspecified peripheral vascular disease Type 2 diabetes mellitus with diabetic neuropathy, 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
[2025-07-26 13:00] VITALS: BP 140/64; PULSE 76; BMI 31.9
--- NOTE | 2025-07-26 13:00 | A.OFFVIS_ITS ---
Vital Signs 07/26/25 13:00 Height 5 ft 7 in Weight 204 lb BMI 31.9 BP 140/64 H Blood Pressure Location Rt brachial Position Sitting Pulse 76 Intake Visit Reasons: mastodynia Intake Note: Patient presents was referred by for an assessment for mastodynia. Pt c/o; reports burning sensation right breast, reports pins and needle sensation , right breast, reports no nipple discharge, reports she saw on 06/19/2025 an at that time she had inflammation. She had a breast reduction about 32 years ago in [place]. DI: 07/18/25: Breast US, MM Diag Vacuum Frame Operator Required: Yes Vacuum Frame Operator Language: Medical Record Technician Services: Vacuum Frame Operator Present Vacuum Frame Operator Name: [email or web address] Information Interpreted: non-clinical & clinical Accompanied by: Self / Same As Patient Allergies No Known Allergies Allergy (Verified 07/26/25 13:10) Medication List - Last Reconciled 07/26/25 by Jurgen Blunt MD alpha lipoic acid 300 mg PO BID alum-mag hydroxide-simeth 400-400-40 mg/5 mL (Mylanta Maximum Strength) 5 mL PO QID PRN aspirin 1 tab PO DAILY baclofen 10 mg PO BEDTIME PRN blood sugar diagnostic (FreeStyle Lite Strips) As directed 3 times a day blood-glucose meter (FreeStyle Lite Meter kit) As directed blood-glucose sensor (FreeStyle Trish 3 Plus Sensor device) Apply 1 new sensor every 15 days as directed to monitor blood glucose continuously. blood-glucose,crusher loader equipment operator,cont (FreeStyle Trish 3 [place]) Use daily to monitor blood glucose levels continuously. carvedilol 1 tab PO DAILY gabapentin 600 mg (2 x 300 mg) PO BEDTIME insulin aspart U-100 (Novolog FlexPen U-100 Insulin aspart) 32 units before breakfast, 32 units before lunch 30 units before supper subcutaneously 3 times a day; insulin degludec (Tresiba FlexTouch U-200 insulin) 42 units subcut BEDTIME levothyroxine 137 mcg PO DAILY linaclotide (Linzess) 290 mcg PO QAM melatonin 1 tab PO BEDTIME PRN metoclopramide HCl (Reglan) 5 mg PO QIDACHS multivitamin with folic acid 400 mcg (Daily-Fidelia (with folic acid)) 1 tab PO DAILY pantoprazole 40 mg PO BID pregabalin mg PO rosuvastatin 20 mg PO BEDTIME rosuvastatin 40 mg PO DAILY sacubitril-valsartan 97-103 mg (Entresto) 1 tab PO DAILY spironolactone 25 mg PO DAILY Synjardy XR 10-1,000 mg (empagliflozin-metformin) 2 tabs (2 x 10-1,000 mg) PO DAILY 30 days NS tirzepatide (Mounjaro) 10 mg (0.5 mL) subcut QWEEK HPI HPI mastodynia: Details: [age] year old female referred for right breast pain. She says that this started about 3 months ago. She says that this has diffuse and sometimes intense and sharp. She says that this has all over her right breast but says that she has seems to feel most intense under the nipple She denies any breast discharge. She denies any palpable mass . Her menarche was at the age of 13. Her 1st was age of 17. She had 5 pregnancies but 2 of these were abortions. She had menopause in her early 50s She says her sister was diagnosed to have breast cancer at the age of 60. Her daughter had uterine cancer at the age of 40. A paternal aunt had breast cancer at age of 70. A maternal cousin had breast cancer in her 30s. A paternal aunt had colon cancer in her 70s. [facility] Medical History (Updated 07/26/25 @ 14:04 by Jurgen Blunt MD) Family history of breast cancer Type II diabetes with usp use of insulin Vertigo Cervicalgia Restless legs syndrome (RLS) Neuropathy Palpitations CAD (coronary artery disease) Depression High cholesterol Celiac disease HTN (hypertension) Hypothyroid Insulin dependent type 1 diabetes mellitus Surgical History H/O bilateral breast reduction surgery History of carpal tunnel release of both wrists History of section H/O abdominoplasty Hx of colonoscopy History of arthroplasty of left knee H/O heart artery stent Family History Mother Diabetes High blood pressure Father Diabetes High blood pressure Paternal Aunt Bone cancer Sister Breast cancer Sister Lymph node cancer Social History Household Members: None Housing: Apartment Are you a primary cna caregiver to a significant other at home: No Do you presently have visiting nurse or other home services: No Alcohol intake: never Patient Tobacco Use Status: Never used Tobacco service: No Current occupational status: disabled Review of Systems Const Denies chills and Denies fever(s) Card Denies chest pain, Denies dyspnea and Denies dyspnea on exertion Resp Denies cough, Denies dyspnea and Denies dyspnea on exertion GI Denies hematochezia and Denies change in bowel habits Denies hematuria Musc Denies back pain and Denies limited range of motion Neuro Denies focal weakness and Denies convulsions Psych Denies depression and Denies mood swings Physical Exam Vital Signs: Last Vital Signs Pulse 76 07/26/25 13:00 BP 140/64 H 07/26/25 13:00 BMI result Body Mass Index 31.9 Const General: comfortable and no acute distress Orientation/consciousness: patient oriented x3 Neck Neck: Yes no lymphadenopathy Chest Other: No palpable breast masses, no axillary lymphadenopathy, no nipple or skin changes Resp Auscultation: clear to auscultation bilaterally Cardio Rhythm: regular rhythm GI Palpation (GI): Soft to palpation, nontender and no guarding Neuro General: patient oriented x3 Assessment & Plan Assessment & Plan (1) Breast pain, right: Comment: R brst tender spot @, 11 cm from nipple & @6, 1 cm from nipple Code(s): N64.4 - Mastodynia Category: Medical Plan: Breast exam does not suggest any palpable mass. She does not have any axillary lymphadenopathy. There were no bowel or skin changes I have reviewed her mammogram and ultrasound from 07/18/2025. This does not suggest any breast mass and there were no suspicious findings I assured her at this time that there is no surgical intervention necessary for her breast pain. She does have a history of breast reduction about 30 years ago. I explained to her that any previous scar formation from surgery may also cause pain even if it has been many years ago. I explained to her the benefits of NSAIDs for breast pain. She does state that this breast blade has improved since 3 months ago I reminded her to continue with regular screening mammograms She does describe multiple cancers in the family so I explained to her the option of proceeding with genetic testing. I described the implications of this test to herself and her family. She says she is interested so we will schedule her for genetic testing here in the office. (2) Family history of breast cancer: Code(s): Z80.3 - Family history of malignant neoplasm of breast Category: Medical Plan: She is interested in genetic testing so we will schedule her for this in the office. Coding Level of Care Code New Pt Level 4 (35210) Diagnoses Breast pain, right N64.4 Family history of breast cancer Z80.3
--- OUTSIDE RECORDS SUMMARY | 2025-07-26 15:35 | XMS_ITS | Encounter Summary ---
Author Organization [employer] Address [address] [facility] 7t [place] [address] Care Team Providers Care Director Of Promotions Name Role Phone Carin Bolden Primary Care Provider [phone] Reason for Visit * Reason Onset Date Comments Appointment Request 03/22/2025 Encounter Details Date Type Department Care Team ([facility] st Contact Info) Description 03/22/2025 Telephone [facility] [address] [place], [place] [phone] Carin Bolden ANP [address] [place], [place] [phone] Appointment Request Social History Tobacco Use Types [...] pt calling in regards to Neuropathy appt, food writer attempted to schedule but did not find any30 min slot available documented in this encounter Plan of Treatment Upcoming Encounters Date Type Department Care Team (Late st Contact Info) Description 08/04/2025 1:45 PM EST Office Visit [facility] [address] [place] [address] Carin Bolden ANP [address] [place] [address] documented as of this encounter Visit Diagnoses Not on filedocumented in this encounter Additional Health Concerns Assessment Noted Time PHQ-9 Depression Total Score: 14 025 1:36 PM EDT documented as of this encounter Care Teams Director Of Promotions Relationship Specialty Start Date End Date Carin Bolden ANP [address] [place] [address] PCP - General Family Medicine 10/10/21 documented as of this encounter
--- OUTSIDE RECORDS SUMMARY | 2025-07-26 15:35 | XMS_ITS | Encounter Summary ---
Author Organization [employer] Address [address] [facility] 7t [place] [address] Care Team Providers Care Smelting Engineer Name Role Phone Carin Bolden Primary Care Provider [phone] Encounter Details Date Type Department Care Team (Late st Contact Info) Description 07/22/2023 Abstract [facility] [address] [place], [place] [phone] Carin Bolden, ANP [address] [place], [place] [phone] Social History Tobacco Use Types Packs/Day Years [...] t he electric, gas, oil or water [employer] threatened to shut off services in your [...] 08/04/2025 1:45 PM EST Office Visit [facility] [address] [place] [phone] Carin Bolden ANP [address] [place] [address] documented as of this encounter Visit Diagnoses Not on filedocumented in this encounter Additional Health Concerns Assessment Noted Time PHQ-9 Depression Total Score: 14 023 2:16 PM EDT documented as of this encounter Care Teams Smelting Engineer Relationship Specialty Start Date End Date Carin Bolden ANP [address] [place] [id number] PCP - General Family Medicine 10/10/21 documented as of this encounter
--- OUTSIDE RECORDS SUMMARY | 2025-07-26 15:35 | XMS_ITS | Encounter Summary ---
Author Organization [employer] Address [address] [facility] [address]t [place] [address] Care Team Providers Care Firing Pin Gauger Name Role Phone Carin Bolden JOSE CRUZ Primary Care Provider [phone] Encounter Details Date Type Department Care Team ([facility] st Contact Info) Description 06/19/2023 Abstract [facility] [address] [place], [place] [phone] Loree Chan Social History Tobacco Use Types [...] Description 08/04/2025 1:45 PM EST Office Visit [facility] [address] [place] [address] Carin Bolden ANP [address] [place], [place] [phone] documented as of this encounter Procedures Procedure Name Priority Date/Time Associated Diagnosis Comments PAP/HPV Routine 11/25/2021 documented in this encounter Results * Pap Smear (11/25/2021) Pap Negative for intraephithelial lesion or malignancy Negative for intraephithelial lesion or malignancy, Other HPV Undetected us Historical Provider [facility] Edited Result - Final documented in this encounter Visit Diagnoses Not on filedocumented in this encounter Additional Health Concerns Assessment Noted Time PHQ-9 Depression Total Score: 14 023 2:16 PM EDT documented as of this encounter Care Teams Firing Pin Gauger Relationship Specialty Start Date End Date Carin Bolden ANP [address] [place] [address] PCP - General Family Medicine 10/10/21 documented as of this encounter
--- OUTSIDE RECORDS SUMMARY | 2025-07-26 15:35 | XMS_ITS | Encounter Summary ---
Author Organization [employer] Address [address] [facility] 7t [place] [address] Care Team Providers Care Brim Stitcher Name Role Phone Carin Bolden Primary Care Provider [phone] Reason for Visit * Reason Comments Med Refill Encounter Details Date Type Department Care Team (Late st Contact Info) Description 07/06/2024 Refill [facility] [address] [place], [place] [phone] Carin Bolden ANP [address] [place], [place] [phone] Social History Tobacco Use Types Packs/Day Years [...] Description 08/04/2025 1:45 PM EST Office Visit [facility] [address] [place] [phone] Carin Bolden ANP [address] [place] [address] documented as of this encounter Visit Diagnoses Not on filedocumented in this encounter Additional Health Concerns Assessment Noted Time PHQ-9 Depression Total Score: 8 02/26/20 24 10:46 AM EDT documented as of this encounter Care Teams Brim Stitcher Relationship Specialty Start Date End Date Carin Bolden ANP [address] [place] [id number] PCP - General Family Medicine 10/10/21 documented as of this encounter
--- OUTSIDE RECORDS SUMMARY | 2025-07-26 15:35 | XMS_ITS | Encounter Summary ---
Author Organization [employer] Address [address] [facility] 7t [place] [address] Care Team Providers Care Car Construction Superintendent Name Role Phone Carin Bolden Primary Care Provider [phone] Reason for Visit * Reason Comments Med Refill Encounter Details Date Type Department Care Team (Late st Contact Info) Description 12/19/2024 Refill [facility] MEDICINE [address] [place], [place] [phone] Carin Bolden ANP 230 [place], [place] [phone] Social History Tobacco Use Types Packs/Day Years [...] Description 08/04/2025 1:45 PM EST Office Visit [facility] [address] [place] [address] Carin Bolden ANP 230 [place] [address] documented as of this encounter Visit Diagnoses Not on filedocumented in this encounter Additional Health Concerns Assessment Noted Time PHQ-9 Depression Total Score: 14 025 1:36 PM EDT documented as of this encounter Care Teams Car Construction Superintendent Relationship Specialty Start Date End Date Carin Bolden ANP [address] [place] [address] PCP - General Family Medicine 10/10/21 documented as of this encounter
--- OUTSIDE RECORDS SUMMARY | 2025-07-26 15:35 | XMS_ITS | Encounter Summary ---
Author Organization [facility] Address [address] [place] [address] 7t [place] [address] Care Team Providers Care Wireline Operator Name Role Phone Carin Bolden Primary Care Provider [phone] Reason for Visit * Reason Comments Med Refill Encounter Details Date Type Department Care Team (Late st Contact Info) Description 02/19/2023 Refill [facility] MED[facility] [address] [place] [address] Valentina Escobedo MD [address] [place] [address] Social History Tobacco Use Types Packs/Day Years [...] Description 08/04/2025 1:45 PM EST Office Visit [facility] [address] [place] [address] [phone] Carin Bolden ANP 230 [place] [address] documented as of this encounter Visit Diagnoses Not on filedocumented in this encounter Care Teams Wireline Operator Relationship Specialty Start Date End Date Carin Bolden ANP [address] [place] [address] PCP - General Family Medicine 10/10/21 documented as of this encounter
--- OUTSIDE RECORDS SUMMARY | 2025-07-26 15:35 | XMS_ITS | Patient Health Record ---
Author Organization [employer] Address [address] [place] [address] [place] [address] Care Team Providers Care Consumer Insight Analyst Name Role Phone Jenna Beebe Primary Care Provider Lou Dacosta Unavailable [phone] Reason For Referral No Information Medications Medication [...] Orally melvin y; Duration: 3 11/26/2018 Active Taopi 3 1000 MG 1 capsule Orally Onc [...] 10 day(s) 12/24/2018 Active Vitamin D (Ergocalciferol) 89142 UNIT 1 capsule Orally q weekly 07/17/2017 [...] Status Risk Notes Problem Diabetic renal disease (202375145) Type 2 diabetes mellitus with diabetic chronic kidney disease (E11.22) Active confirmed Problem Diabetic cataract associated with type II diabetes mellitus (325399562) 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) Active confirmed Problem Type 2 diabetes mellitus with peripheral angiopathy (607365562) Type 2 diabetes mellitus with diabetic peripheral angiopathy without gangrene (E11.51) Active confirmed Problem Type 2 diabetes mellitus with other specified complication (E11.69) Active confirmed Problem Mixed hyperlipidemia (552546725) Mixed hyperlipidemia (E78.2) Active confirmed Problem Rotator cuff arthropathy of left shoulder (disorder) (51290854970697447 ) Other specific arthropathies, not elsewhere classified, left shoulder (M12.812) Active confirmed Problem Nontraumatic rupture of muscle or tendon structure of rotator cuff of left shoulder (disorder) (9655351276790328) Unspecified rotator cuff tear or rupture of left shoulder, not specified as traumatic (M75.102) Active confirmed Problem Fibrocystic breast changes (80847037) Diffuse cystic mastopathy of right breast (N60.11) Active confirmed Problem Long-term current use of insulin (668253210) snf current use of insulin (Z79.4) Active confirmed Problem Chronic kidney disease stage 2 (188769462) Chronic kidney disease, stage II (mild) (N18.2) Active confirmed Problem Esophageal reflux (594826936) Esophageal reflux (K21.9) Active confirmed Problem Anxiety (68340076) Anxiety (F41.9) Active confi rmed Problem Hypothyroidism (62056751) Hypothyroidism (E03.9) Active confirmed Problem Obstructive sleep apnea (68205856) Obstructive sleep apnea (G47.33) Active confirmed Problem Tear film insufficiency (43366035) Dry eye (H04.129) Active confirmed Problem Localized, primary osteoarthritis of the shoulder region (386689592) Osteoarthritis of left shoulder, unspecified osteoarthritis type (M19.012) Active confirmed Problem Stricture of artery (88065802) 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) Active confirmed CXR 09/23/19 19 Problem Mood disorder (39771919) Mood disorder (F39) Active confirmed Problem Shoulder joint pain (872708093) Left shoulder pain, unspecified chronicity (M25.512) Active confirmed Problem Polyneuropathy due to type 2 diabetes mellitus (223820822) Type 2 diabetes mellitus with polyneuropathy (E11.42) Active confirmed Problem Esotropia (68786298) Esotropia (H50.00) Active confirmed Problem Mild nonproliferative retinopathy due to type 2 diabetes mellitus (895507344794900) Type 2 diabetes mellitus with mild nonproliferative diabetic retinopathy without macular edema, bilateral (E11.3293) Active confirmed Problem Hypertensive heart AND chronic kidney disease with congestive heart failure (44394086287693) Hypertensive heart and chronic kidney disease with heart failure and stage 1 through stage 4 chronic kidney disease, or chronic kidney disease (I13.0) Active confirmed Problem Pulmonary hypertension (28791946) Pulmonary hypertension (I27.20) Active confirmed ECHO 12/02/19 15 Problem Cervical spondylitis (100562101) Cervical spondylitis (M46.92) Active confirmed Problem Arthropathy of lumbar facet joint (276528661) Lumbar facet arthropathy (M46.96) Active confirmed MRI lumbar 4 Problem Homocysteine level above reference range (finding) (439628931153755) Homocysteinemia (E72.19) Active confirmed Problem Heart failure (89046995) CHF (NYHA class II, ACC/AHA stage C) [...] X-ray PA and lateral 2017 EKG Electrocardiogram 06/09/2017 EKG Electrocardiogram 06/06/2014 EKG Electrocardiogram 11/28/2014 EKG Electrocardiogram 11/20/2017 EKG Electrocardiogram 10/02/2015 Urinalysis, Complete 04/05/2013 TSH+Free T4 08/15/2013 Mammogram [...] 04/05/2013 CULTURE, AEROBIC BACTERIA 12/17/2018 HEMOGLOBIN A1C-Q 08/21/2015 HEMOGLOBIN A1C-Q 10/02/2015 HEMOGLOBIN A1C-Q 01/16/2016 URINALYSIS, COMPLETE 07/15/2013 CBC (INCLUDES DIFF/PLT) 04/05/2013 MICROALBUMIN, RANDOM URINE (W/CREATININE ) 01/16/2016 MICROALBUMIN, RANDOM URINE (W/CREATININE ) 03/24/2016 MICROALBUMIN, RANDOM URINE (W/CREATININE ) 10/02/2015 MICROALBUMIN, RANDOM URINE (W/CREATININE ) 02/08/2019 MICROALBUMIN, RANDOM URINE (W/CREATININE ) 07/15/2013 LIPID PANEL 04/05/2013 SED RATE BY MODIFIED WESTERGREN 04/17/20 14 XDMO-7-XRDPAPEXGTGNJ 05/08/2014 TSH, 3RD GENERATION-Q 07/15/2013 HIV AB, [...] Comprehensive Metabolic Panel 14+eGFR-LC -Q 07/15/2013 Urinalysis, Ziryrrcs-PW-H 12/05/2013 Urinalysis, Ioeofnps-PC-C 04/16/2018 GlycoMark(R)(1,5 AG)-LC 12/05/2013 Vitamin D 25-Hydroxy, D2 + D3-LC 016 Uric Acid, Serum-LC 12/05/2013 TSH-LC 09/05/2014 CBC With Differential/Czxrfgar-UN-Y 11/13 CBC With Differential/Eupemvqi-NP-I 11/2017 CBC With Differential/Gzxvaxrn-HY-T 01/13 C-Reactive Protein (CRP)-LC 04/17/2014 C3 Complement, [...] Insured Coverage Start Date Coverage End Date [facility] [address] [address] [place] [phone] [id number] VANESSA BARKER Self - patient is the insured [facility] MEDICAID [address] [place], [place] [id number] VANESSA BARKER Self - patient is the [...]
--- OUTSIDE RECORDS SUMMARY | 2025-07-26 15:36 | XMS_ITS | Patient Health Record ---
Author Organization [facility] Address [address] [id number] Care Team Providers Care Event Av Operator Name Role Phone Migration, Provider Unavailable [phone] Reason For Referral No Information Encounters Encounter Location Date Provider Diagnosis [facility] [address] [phone] 03/25/2025 Provider Migration [facility] [address] [phone] 03/26/2025 Provider Migration Plan Of Treatment No [...]
--- OUTSIDE RECORDS SUMMARY | 2025-07-26 15:36 | XMS_ITS | Encounter Summary ---
Author Organization [facility] Address [address] [place] [address] Care Team Providers Care Bush And Vine Farmer Fruit Crops Name Role Phone BoldenCarin JOSE A Primary Care Provider [phone] Encounter Details Date Type Department Care Team (Late st Contact Info) Description 06/21/2025 Results Follow-Up [facility] Dr [address] [place] [address] Rob Melendez MD [address] [place] [address] Dr [address] [place] [address] Social History Tobacco Use Types [...] Info) Description 08/21/2025 1:00 PM EST Appointment [facility] CT Scan [address] [place] [phone] 10/12/2025 9:50 AM EST Office Visit [facility] [address] [place] [address] Dr [address] [place] [address] NaderRob Vilchis MD [address] [place] [address] Dr [address] [place] [phone] 10/23/2025 9:00 AM EST Office Visit [facility] [place] [address] [place] [phone] Kenneth Schrader MD 230 [place] [phone] documented as of this encounter Visit Diagnoses Not on filedocumented in this encounter Care Teams Bush And Vine Farmer Fruit Crops Relationship Specialty Start Date End Date Carin Bolden NP 230 [facility] [address] [place] [phone] PCP - General 11/07/21 documented as of this encounter
--- OUTSIDE RECORDS SUMMARY | 2025-07-26 15:36 | XMS_ITS | Encounter Summary ---
Author Organization [employer] Address [address] [facility] 7t [place] [address] Care Team Providers Care Tool Grinder Operator Surface Name Role Phone Carin Bolden Primary Care Provider [phone] Reason for Visit * Reason Onset Date Comments Appointment Request 06/08/2025 Referral 06/08/2025 Encounter Details Date Type Department Care Team ([facility] st Contact Info) Description 06/08/2025 Telephone [facility] MEDICINE 230 [place], [place] [phone] Carin Bolden ANP 230 [place] [address] Appointment Request; Referral Social History Tobacco Use [...] 2:15 PM (margarito de la espalda) Location: [address] [place] [address] [facility] [address] FAX [phone] When got to office did not have anything scheduled. Pt was directed by office to contact a specificnumber for scheduling but is unsuccessful getting a hold of a live person . Pt looking for assistance, documented in this encounter Plan of Treatment Upcoming Encounters Date Type Department Care Team (Late st Contact Info) Description 08/04/2025 1:45 PM EST Office Visit [facility] MEDICINE 230 [place] [address] Carin Bolden ANP 230 [place] [address] documented as of this encounter Visit Diagnoses Not on filedocumented in this encounter Additional Health Concerns Assessment Noted Time PHQ-9 Depression Total Score: 0 04/10/20 25 1:18 PM EDT documented as of this encounter Care Teams Tool Grinder Operator Surface Relationship Specialty Start Date End Date Carin Bolden ANP [address] [place] [address] PCP - General Family Medicine 10/10/21 documented as of this encounter
--- OUTSIDE RECORDS SUMMARY | 2025-07-26 15:36 | XMS_ITS | Encounter Summary ---
Author Organization [employer] Address [address] [facility] 7t [place] [address] Care Team Providers Care Gravity Prospecting Observer Name Role Phone Carin Bolden Primary Care Provider [phone] Encounter Details Date Type Department Care Team (Latest Contact Info) Description 02/17/2022 Abstract [facility] CONVERSIONS Dental, Provider, DDS Social History Tobacco [...] Description 08/04/2025 1:45 PM EST Office Visit [facility] MEDICINE 230 [place] [address] Carin Bolden ANP [address] [place] [address] documented as of this encounter Visit Diagnoses Not on filedocumented in this encounter Care Teams Gravity Prospecting Observer Relationship Specialty Start Date End Date Carin Bolden ANP [address] [place] [address] PCP - General Family Medicine 10/10/21 documented as of this encounter
--- OUTSIDE RECORDS SUMMARY | 2025-07-26 15:36 | XMS_ITS | Encounter Summary ---
Author Organization [employer] Address [address] [facility] 7t [place] [address] Care Team Providers Care Personal Lines Agent Name Role Phone Carin Bolden Primary Care Provider [phone] Reason for Visit * Reason Comments Med Refill Encounter Details Date Type Department Care Team (Late st Contact Info) Description 08/28/2023 Refill [facility] MEDICINE 230 [place], [place] [phone] Carin Bolden ANP 230 [place], [place] [phone] Subacute cough Social History Tobacco Use Types [...] PM EST Office Visit [facility] [address] [place] [address] Carin Bolden ANP 230 [place] [address] documented as of this encounter Visit Diagnoses Diagnosis Subacute cough documented in this encounter Additional Health Concerns Assessment Noted Time PHQ-9 Depression Total Score: 14 023 2:16 PM EDT documented as of this encounter Care Teams Personal Lines Agent Relationship Specialty Start Date End Date Carin Bolden ANP [address] [place] [address] PCP - General Family Medicine 10/10/21 documented as of this encounter
--- OUTSIDE RECORDS SUMMARY | 2025-07-26 15:36 | XMS_ITS | Clinical Summary ---
Author Organization [facility] [employer] Address [address] [place], [place] [address] Phone Care Team Providers Care Property Coordinator Name Role Phone Carin Bolden NP Primary Care Provider [phone] Allergies No known active allergies Medications aspirin [...] Problems Problem Noted Date Diagnosed Date Claudication ([facility] V24) 02/15/2025 Assessment & Plan (04/04/2025 7:18 PM EDT): The patient complains of bilateral leg discomfort with ambulation. Will order lower extremity arterial duplex to rule out the presence of PAD Orders: Vascular US duplex lower extremity arteries bilateral with JASON; Future Heart failure with reduced e jection fraction ([facility] V24, [facility] V28) 03/07/2022 Overview (09/27/2024): Last Assessment & [...] to the mid LAD in 2018 at [facility]. The patient had been reporting episodes of [...] every night. Depression 05/09/2010 DM (diabetes mellitus) ([facility] V24, [facility] V28 ) 05/09/2010 HTN (hypertension) 05/09/2010 Overview [...] Encounters Date Type Department Care Team Description 07/21/2025 10:30 AM EST Consult [facility] [place] [address] [place] [address] Jessica Randolph PA PAD (peripheral artery disease) ([facility] V24) (Primary Dx); Type 2 diabetes mellitus with diabetic neuropathy, unspecified whether termite exterminator insulin use ([facility] V24, [facility] V28) 06/30/2025 Telephone [facility] [address] [place] [address] [address] [place] [address] Rob Melendez MD 06/21/2025 Telephone [facility] [address] [place] [address] [place] [address] Rob Melendez MD 06/21/[address] [place] [address] Rob Melendez MD 06/21/2025 Results Follow-Up [facility] [address] [place] [address] [address] [place] [address] Rob Melendez MD 06/21/2025 Telephone [facility] Dr R[facility] Center [address] [place] [address] Rob Melendez MD 06/16/2025 Telephone [facility] [address] [place] [address] Dr [address] [place] [address] Michelle Arellano NP 05/31/2025 9:00 AM EDT Ancillary Procedure [facility] Cardiology [facility] [address] [place] [address] Heart failure with reduced ejection fraction ([facility] V24, [facility] V28) 05/03/2025 Telephone [facility] [address] [place] [address] Rob Melendez MD 05/02/2025 Telephone [facility] [address] [place] [address] Rob Melendez MD 05/01/2025 12:00 PM EDT Ancillary Procedure [facility] [address] [place] [address] Claudication ([facility] V24) from Last 3 Months Surgical History Surgery Date Site/Laterality Comments COLONOSCOPY 2006? PROCEDURE: MT COLONOSCOPY FLX DX W/COLLJ SPEC WHEN PFRMD ESOPHAGOGASTRODUODENOSCOPY 05/13/2010 PROCEDURE: MT EGD TRANSORAL BIOPSY SINGLE/MULTIPLE; COMMENT: Normal esophagus [...] History Medical History Date Comments Diabetes mellitus ([facility] V24, [facility] V28) DX:Diabetes mellitus (HCC) JEVON (obstructive sleep [...] EDT Inhaled Oxygen Concentration - - Weight 92.3 kg (203 lb 6.4 oz) 07/21/2025 10:16 AM EST Height 170.2 cm (5' 7 ) 07/21/2025 10:16 AM EST Body Mass Index 31.86 07/21/2025 10:16 AM EST Plan of Treatment Upcoming Encounters Date Type Department Care Team (Late st Contact Info) Description 08/21/2025 1:00 PM EST Appointment [facility] CT Scan [address] [place] [phone] 10/12/2025 9:50 AM EST Office Visit [facility] [address] [place] [phone] Rob Melendez MD [address] [place] [address] Dr [address] [place] [phone] 10/23/2025 9:00 AM EST Office Visit [facility] [place] [address] [place] [phone] Kenneth Schrader MD [address] [place] [phone] Health Maintenance Due Date Last Done Comments [...] Albumin-Creatinine Ratio (uACR) 08/24/2022 Depression Screening 09/14/2024 Diabetes: Blood Sugar Control Test (HGBA1C) 10/27/2025 04/26/2025, 11/30/2024, 07/21/2024 COVID-19 Vaccine ( season) 2026 07/04/2025, 10/20/2023, 08/09/2022, Additional history exists Diabetes: Annual GFR (Glomerular Filtration Rate) 01/16/2026 [...] 08/02/2007 RSV Immunization Adult Patients Completed 12/16/2024 Influenza Vaccine Completed 07/04/2025, , 06/12/2023, Additional history exists HIB Vaccines Aged Out [...] 44 mL CV PACS Left Atrium Minor Vass 6.5 cm CV PACS Left Atrium Major Vass 6.2 cm CV PACS [place] Area Sys [...] Proximal 1.9 cm CV PACS MV Deceleration [place] 3.0 m/s2 CV PACS E Wave Deceleration [...] PSV 80 cm/s CV VAS LAB Left CLINICAL DOCUMENTATION IMPROVEMENT SPECIALIST prox sys PSV 83 cm/s CV VAS [...] PSV 62 cm/s CV VAS LAB Right CLINICAL DOCUMENTATION IMPROVEMENT SPECIALIST prox sys PSV 131 cm/s CV VAS [...] The mid peroneal artery has biphasic flow. Lion Trainer Details A aaron scale, color and doppler analysis ultrasound was performed. During the study longitudinal views were obtained. Pulsed wave doppler was performed. us Rob Melendez MD CV VASCULAR PROCEDURES Final Result * (ABNORMAL) Lipid panel (10/18/2024 8:03 AM EST) [facility] Cholesterol Total 153 100 - 199 mg/dL [facility] Triglycerides 167(H) 0 - 149 mg/dL [facility] HDL Cholesterol 50 >39 mg/dL [facility] VLDL Cholesterol Calculated 28 5 - 40 mg/dL [facility] LDL Chol Calc (NIH) 75 0 - 99 mg/dL [facility] 10/18/2024 8:03 AM EST 10/18/2024 Narrative [facility] - 10/18/2024 11:06 PM EST Performed at: [address] [place] [id number] Assemblyman Or Woman: Kelley Hughes MD, Phone: [phone] Michelle Arellano LOAN EXPEDITOR LAB BLOOD ORDERABLES Final Result [facility] * (ABNORMAL) Comprehensive metabolic panel (10/17/2024 9:28 AM EST) Pathologist [facility] Glucose 202(H) 70 - 99 mg/dL [facility] [...] 1:05 AM EST Performed at: 01 - [facility] [id number] Assemblyman Or Woman: [place] Hughes MD, Phone: [phone] Michelle Arellano LOAN EXPEDITOR LAB BLOOD ORDERABLES Final Result [facility] 1 from Last 3 Months or Most Recently Relevant [place] [id number] [employer] MEDICARE Member Subscriber Plan / Payer (Ef fective 2022-Present) Name:Bozena Gupta Relation to Subscriber:Self Name:Bozena Osullivan Payer ID:[id number] Group ID:[id number] Type:Not on file Address: [place] [address] [address] [phone] Care Teams Property Coordinator Relationship Specialty Start Date End Date Carin Bolden NP [address] [place] [address] [place] [phone] PCP - General 11/07/21
--- OUTSIDE RECORDS SUMMARY | 2025-07-26 15:36 | XMS_ITS | Clinical Summary ---
Author Organization [employer] Address [address] [facility] [address] [place] [address] Care Team Providers Care Hairspring Studder Name Role Phone Justin Lopez JOSE CRUZ [...] 1 tablet by mouth at bedtime. Purchases [facility] Active Blood Glucose Monitoring Suppl (Sawerly Lite) w/Device kit Use to test blood [...] with long-term current use of insulin ([facility]) TEST BLOOD SUGAR THREE TIMES DAILY DIRECTED 100 strip 5 04/14/20 25 Active carvedilol (Coreg) 6.25 MG tabletIndications: Heart failure with reduced ejection fraction (HCC) TAKE ONE TABLET IN THE MORNING AND EVENING 30 tablet 3 04/14/20 25 Active insulin pen needle (Easy Touch Pen [place]) 31G x 6 mm miscIndications:Ty pe 2 [...] pt reports had left knee surgery in [place] in 2016,denies following here w any orthopedic [...] polypectomy versus endometrial biopsy On: TBD By: RECOVERER Anesthesia: General After careful review of patient's [...] 9:29 AM EST): Under the care of Hand Stamper Rob Doe. Last seen 04/2023. Last ECHO [...] Coronary artery disease 08/17/2023 08/17/20 Overview (02/10/2024): Hand Stamper Dr. Doe Baseline ECG: SR, possible prior [...] use of insulin 06/03/2012 08/17/2023 Overview (02/10/2024): [facility] endocrinology Metformin XR 500mg 2 tabs AM/PM Lantus 30 units daily NovoLog 30 units before meals (we have this as 20 units unless BG 300+) Jardiance 25mg mounjaro 7.5mg weekly (plan to increase to 10mg Spring 2023) On statin, ASA (pt has known CAD), ARB (entresto) Hypertension 06/03/2012 Assessment & Plan (11/19/2023 9:30 AM EST): Pt on Carvedilol once daily ( as per Hand Stamper) Once cleared by Cardiology the instruction is [...] Department Care Team Description 07/18/2025 Orders Only [facility] External Provider, [facility] 06/14/2025 Refill [facility] MED[facility] [address] [place] [address] Justin Lopez ANP 06/09/2025 Telephone [facility] [address] [place] [address] Justin Lopez ANP chart prep 06/08/2025 Telephone [facility] MED[facility] [address] [place] [address] Justin Lopez ANP Appointment Request; Referral 06/06/2025 Orders Only GENERIC EXTERNAL DATA DEPARTMENT Provider, Generic External Data 05/09/2025 Telephone [facility] MED[facility] [address] [place] [phone] Justin Lopez ANP image order 04/26/2025 3:30 PM EDT Office Visit [address] [phone] Jusitn Lopez ANP Type 2 diabetes mellitus with diabetic polyneuropathy, with long-term current use of insulin ([facility]) (Primary Dx); Hypothyroidism, unspecified type; Closed fracture of left foot, sequela; Screening for osteoporosis; Low back pain radiating to left leg; Frequent falls 04/26/2025 Travel 04/25/[address] [address] Justin Lopez ANP CHART PREP 04/25/2025 Orders Only GENERIC EXTERNAL DATA DEPARTMENT Provider, Generic External Data from Last 3 Months Immunizations Immunization Administration [...] Description 08/04/2025 1:45 PM EST Office Visit [facility] MED[facility]INE [address], [place] [phone] Justin Lopez, ANP [address] [place], [place] [phone] Health Maintenance Due Date Last Done Comments [...] Tobacco Screening 04/26/2026 04/26/2025 Mammogram 07/18/2026 07/18/2025, 1112/2024, 09/21/2024, Additional history exists HPV/Cotest 11/25/2026 11/25/2021, [...] Name Priority Date/Time Associated Diagnosis Comments BI US BREAST LIMITED RIGHT Routine 07/18/2025 3:13 PM EST BI MAMMOGRAM DIAGNOSTIC TOMOSYNTHESIS RIGHT Routine 07/18/2025 2:55 PM EST GLUCOSE, WHOLE BLOOD Routine 06/06/2025 11:25 AM EDT POCT GLYCATED HEMOGLOBIN, TOTAL Routine 04/26/2025 3:45 PM EDT Type 2 diabetes mellitus with diabetic polyneuropathy, with long-term current use of insulin ([facility]) POCT GLUCOSE Routine 04/26/2025 3:44 PM EDT Type 2 diabetes mellitus with diabetic polyneuropathy, with long-term current use of insulin ([facility]) GLUCOSE, WHOLE BLOOD Routine 04/25/2025 11:07 AM [...] Relevant to Health Maintenance Results * BI US Breast Limited Right (07/18/2025 3:13 PM EST) Anatomical Region Laterality Modality Breast Right Ultrasound 07/18/2025 3:13 PM EST Narrative 07/18/2025 5:17 PM EST [facility] [address] [place] [address] Ultrasound Report Signed Patient: Bozena Gupta MR#: [id number] : 1955 Acct:[id number] Age/Sex: 69 / F ADM Date: 07/18/25 Loc: HO.MAMMO Attending Dr: Arturo De León MD Ordering Physician: Arturo De León MD Date of Service: 07/18/25 Procedure(s): US Breast RT Limited Mamm Only Accession Number(s): [id number] cc: JUSTIN LOPEZ NP; Arturo De León MD Reason for Exam: N64.4 - Mastodynia EXAMINATION(S): 1. MM [...] suspicious calcifications or other abnormalities are seen. US/US Breast RT Limited Mamm Only IMPRESSION: RIGHT BREAST: Benign, no evidence of [...] Mahoney MD in OV> 07/18/25 1714 DD/ 1513 TD/TT: 07/18/25 1521 Topper Press Operator Automatic: Procedure Note Donotuseinterpreter, Image - 07/19/2025 [facility] [address] [place] [address] Ultrasound Report Signed Patient: Boezna Gupta NMR#: [id number] : 1955cct:[id number] Age/Sex: 69 / FADM Date: 07/18/25 Loc: HO.MAMMO Attending Dr: Arturo De León MD Ordering Physician: Arturo De León MD Date of Service: 07/18/25 Procedure(s): US Breast RT Limited Mamm Only Accession Number(s): [id number] cc: JUSTIN LOPEZ CLOCKMAKER; Arturo De León MD Reason for Exam: N64.4 - Mastodynia EXAMINATION(S): 1. MM [...] suspicious calcifications or other abnormalities are seen. US/US Breast RT Limited Mamm Only IMPRESSION: RIGHT BREAST: Benign, no evidence of [...] Mahoney MD in OV> 07/18/25 1714 DD/ 1513 TD/TT: 07/18/25 1521 Topper Press Operator Automatic: [facility] External Provider IMG US PROCEDURES Final Result * BI Mammogram Diagnostic Tomosynthesis Right (07/18/2025 2:55 PM EST) Anatomical Region Laterality Modality Breast Right Mammography 07/18/2025 2:55 PM EST Narrative 07/18/2025 5:16 PM EST [facility] [address] [place] [address] Mammography Report Signed Patient: Bozena Gupta MR#: [id number] : 1955 Acct:[id number] Age/Sex: 69 / F ADM Date: 07/18/25 Loc: ZEESHANO Attending Dr: Arturo De León MD Ordering Physician: Arturo De León MD Results: 2Benign Date of Service: 07/18/25 Follow Up: 1 Year From Orig inal Mammogram Procedure(s): MM tomosynthesis diagnostic RT Accession Number(s): [id number] cc: JUSTIN LOPEZ CLOCKMAKER; Arturo De León MD Reason For Exam: [...] by: Phill Mahoney MD 07/18/2025 05:14 PM [facility] Dictated By: Phill Mahoney MD Signed By: <Electronically signed by Phill Mahoney MD in OV> 07/18/25 1714 DD/ 1455 TD/TT: 07/18/25 1504 Topper Press Operator Automatic: Procedure Note Donotuseinterpreter, Image - 07/18/2025 [facility] [address] [place] [address] Mammography Report Signed Patient: Bozena Gupta [facility]#: [id number] : 6Acct:[id number] Age/Sex: 69 / FADM Date: 07/18/25 Loc: HO.MAMMO Attending Dr: Arturo De León MD Ordering Physician: Arturo De León MDResults: 2Benign Date of Service: 07/18/25Follow Up: 1 Year From Orig ina Mammogram Procedure(s): MM tomosynthesis diagnostic RT Accession Number(s): [id number] cc: JUSTIN LOPEZ CLOCKMAKER; Arturo De León MD Reason For Exam: [...] by: Phill Mahoney MD 07/18/2025 05:14 PM [facility] Dictated By: Phill Mahoney MD Signed By: <Electronically signed by Phill Mahoney MD in OV> 07/18/25 1714 DD/ 1455 TD/TT: 07/18/25 1504 Topper Press Operator Automatic: us [facility] External Provider IMG BI PROCEDURES Final Result * (ABNORMAL) Glucose, Whole Blood (06/06/2025 11:25 AM EDT) Only the most recent of2 resultswithin the time period is included. Glucose, Whole Blood 126(H) 60 - 115 mg/dL [facility] Comment:METER #: [id number] Testing performed in the Endocrinology Department [address] , [address], [place]. 06/06/2025 11:2 5 AM EDT 06/06/2025 11:30 AM EDT Generic External Data Provider LAB BLOOD ORDERAB LES Final Result [facility] [address] [place] [phone] * (ABNORMAL) POCT HGB A1C (04/26/2025 3:45 PM EDT) Hemoglobin A1C 7.5(A) 4.0 - 5.7 % QC Media Lot # [id number] Lot# Expiration Date Blood 04/26/2025 3:45 PM EDT Justin Lopez ANP POINT OF CARE TEST ENTER/EDIT OR DERABLES Final Result * (ABNORMAL) POCT Glucose (04/26/2025 3:44 PM EDT) Glucose Blood, POC 274(A) 60 - 200 mg/dL QC Media Lot # [id number] Lot# Expiration Date [id number] Blood Capillary blood specimen / Unknown 04/26/2025 3:44 PM EDT Justin Lopez ANP POINT OF CARE TEST ENTER/EDIT OR DERABLES Final Result * (ABNORMAL) Albumin, Random Urine W/Creatinine (01/16/2025 10:05 AM EDT) Creatinine, Urine 59.94 mg/dL [facility] Microalbumin Urine 133.0 mg/L [facility] Microalbum Creatinine Ratio Ur 221.8(H) <30 ug/mg cr [facility] Comment:Albumin/Creatinine R atio Reference Ranges: Normal: < 30 ug/mg creatinine Microalbuminuria: 30 - 300 ug/mg creatinineClinical Albuminuria: > 300 ug/mg creatinine 01/16/2025 10:0 5 AM EDT 01/16/2025 10:23 AM EDT us Generic External Data Provider LAB URINE ORDERAB LES Final Result Performing Organization Address [facility]/ZIP Co de Phone Number [facility] [address] [place] [phone] * Lipid Panel, Standard (01/16/2025 10:05 AM EDT) Triglycerides 122 <150 mg/dL [facility] Comment:Desirable Triglyceri de: less than 150 mg/dLBorderline High Triglyceride 150-199 mg/dLHigh Triglyceride: 200-499 mg/dLVery High Triglyceride: greater than or equal to 5OO mg/dL Cholesterol 125 <200 mg/dL [facility] Comment:Desirable Cholestero l: less than 200 mg/dLBorderline High Cholesterol: 200-239 mg/dLHigh Cholesterol: greater than 239 mg/dL LDL Cholesterol Calculated 57 <100 mg/dL [facility] Comment:Desirable LDL: less than 100 mg/dLNear Optimal/Above Optimal LDL: 110- 129 mg/dLBorderline High LDL: 130-159 mg/dLHigh LDL: 160-189 mg/dLVery High LDL: greater than or equal to 190 mg/dL HDL Cholesterol 44 >40 mg/dL [facility] Comment:Desirable HDL: great er than 40 mg/dL Note: This HDL assay may give artificially low results in patients with liver disease. 01/16/2025 10:0 5 AM EDT 01/16/2025 10:05 AM EDT us Generic External Data Provider LAB BLOOD ORDERAB LES Final Result Performing Organization Address City/[facility]/ZIP Co de Phone Number [facility] [address] [place] [phone] * Hm Colonoscopy (08/27/2022) Colonoscopy Normal Normal Narrative Loree Chan - 08/27/2022 Repeat Colonoscopy in 5-6 years due to fair prep on left side or earlier if clinically indicated us Historical Provider HEALTH MAINTENANCE Final Result * Pap Smear (11/25/2021) Pap Negative for intraephithelial lesion or malignancy Negative for intraephithelial lesion or malignancy, Other HPV Undetected Historical Provider HEALTH MAINTENANCE Edited Result - Final from Last 3 Months or Most Recently Relevant to Health Maintenance Insurance [employer] [id number] * Guarantor: Bozena Gupta Account Type Relation to Patient Date of Phone Billing Address Personal/Family Self [address] Care Teams Hairspring Studder Relationship Specialty Start Date End Date Justin Lopez ANP [address] [place] [address] PCP - General Family Medicine 10/10/21
--- OUTSIDE RECORDS SUMMARY | 2025-07-26 15:36 | XMS_ITS | Encounter Summary ---
Author Organization [employer] Address [address] [place] [address] [address] [place] [address] Care Team Providers Care School Speech Language Pathologist Name Role Phone Carin Bolden Primary Care Provider [phone] Encounter Details Date Type Department Care Team (Late st Contact Info) Description 08/11/2022 Abstract [facility] D[facility] [address] [place] [address] [phone] Dental, Provider, DDS Social History Tobacco Use [...] 08/04/2025 1:45 PM EST Office Visit [facility] MED[facility] [address] [place], [place] [phone] Carin Bolden ANP [address] [place], [place] [phone] documented as of this encounter Procedures Procedure [...] on filedocumented in this encounter Care Teams School Speech Language Pathologist Relationship Specialty Start Date End Date Carin Bolden ANP [address] [place] [phone] PCP - General Family Medicine 10/10/21 documented as of this encounter
--- OUTSIDE RECORDS SUMMARY | 2025-07-26 15:36 | XMS_ITS | Encounter Summary ---
Author Organization [employer] Address [address] [facility] 7t [place] [address] Care Team Providers Care Fireperson Name Role Phone Carin Bolden JOSE CRUZ Primary Care Provider [phone] Reason for Visit * Reason Comments Med Refill Encounter Details Date Type Department Care Team (Late st Contact Info) Description 08/16/2024 Refill [facility] [address] [place], [place] [phone] Lori Bee MD [address] [place] [address] Carpal tunnel syndrome, unspecified laterality Social History [...] Description 08/04/2025 1:45 PM EST Office Visit [facility] MEDICINE [address] [place] [address] Carin Bolden ANP [address] [place] [address] documented as of this encounter Visit Diagnoses Diagnosis Carpal tunnel syndrome, unspecified laterality documented in this encounter Additional Health Concerns Assessment Noted Time PHQ-9 Depression Total Score: 8 02/26/20 24 10:46 AM EDT documented as of this encounter Care Teams Fireperson Relationship Specialty Start Date End Date Carin Bolden ANP [address] [place] [address] PCP - General Family Medicine 10/10/21 documented as of this encounter
== END 2025-07-26 14:05 | disposition home or self-care (01) ==
LOC: HO.HGS 12:59
PROVIDERS: PCP Nurse Practitioner Primary Care; Visit Provider Surgery
DX: N64.4 Mastodynia (principal); Z80.3 Family history of malignant neoplasm of breast
CPT/HCPCS: 99204

== ENCOUNTER → 2025-07-26 12:58 | Outpatient (BNVA) | payer OTHER, SELFPAY | PROVIDERS: PCP Nurse Practitioner Primary Care; Visit Provider Surgery | DX: N64.4 Mastodynia (principal); Z80.3 Family history of malignant neoplasm of breast | CPT/HCPCS: 99202 ==

== ENCOUNTER 2025-08-01 09:37 | Outpatient (AMB) | payer OTHER, SELFPAY ==
--- NOTE | 2025-08-01 09:43 | A.OFFVIS_ITS ---
Vital Signs 08/01/25 09:44 Height 5 ft 7 in Weight 206 lb 2.115 oz BMI 32.3 BP 118/58 L Blood Pressure Location Lt brachial Position Sitting Pulse 83 Pulse Source Pulse Oximeter Pulse Oximetry (%) 96 Oxygen Delivery Method Room Air Oxygen Flow Rate 96 Intake Visit Reasons: Type II diabetes Intake Note: Patient present today to follow up on Type 2 Diabetes Mellitus. Patient received Dexcom G7 supplies through: [employer] Last Diabetic Eye exam: 10/2024, patient will be making another appt this year due to excessive tearing of the eyes Last Podiatry Visit: Approx 5 months ago, Dr. Caputo Random Glucose:220 mg/dL HgA1C: 7.8% Business Librarian Required: Yes Business Librarian Language: Suction Plate Roller Hand Services: Business Librarian Present Information Interpreted: non-clinical & clinical Accompanied by: Self / Same As Patient Allergies No Known Allergies Allergy (Verified 08/01/25 09:48) Medication List - Last Reconciled 08/01/25 by RAINER Cottrell alpha lipoic acid 300 mg PO BID alum-mag hydroxide-simeth 400-400-40 mg/5 mL (Mylanta Maximum Strength) 5 mL PO QID PRN aspirin 1 tab PO DAILY baclofen 10 mg PO BEDTIME PRN blood sugar diagnostic (FreeStyle Lite Strips) As directed 3 times a day blood-glucose meter (FreeStyle Lite Meter kit) As directed blood-glucose sensor (FreeStyle Trish 3 Plus Sensor device) Apply 1 new sensor every 15 days as directed to monitor blood glucose continuously. blood-glucose,etcher electrolytic,cont (FreeStyle Trish 3 [place]) Use daily to monitor blood glucose levels continuously. carvedilol 1 tab PO DAILY empagliflozin (Jardiance) 25 mg PO QAM gabapentin 600 mg (2 x 300 mg) PO BEDTIME insulin aspart U-100 (Novolog FlexPen U-100 Insulin aspart) 32 units before breakfast, 32 units before lunch 30 units before supper subcutaneously 3 times a day; insulin degludec (Tresiba FlexTouch U-200 insulin) 42 units subcut BEDTIME levothyroxine 137 mcg PO DAILY linaclotide (Linzess) 290 mcg PO QAM melatonin 1 tab PO BEDTIME PRN metformin ER 1,000 mg (2 x 500 mg) PO BID 90 days metoclopramide HCl (Reglan) 5 mg PO QIDACHS multivitamin with folic acid 400 mcg (Daily-Fidelia (with folic acid)) 1 tab PO DAILY pantoprazole 40 mg PO BID pregabalin mg PO rosuvastatin 20 mg PO BEDTIME rosuvastatin 40 mg PO DAILY sacubitril-valsartan 97-103 mg (Entresto) 1 tab PO DAILY spironolactone 25 mg PO DAILY tirzepatide (Mounjaro) 10 mg (0.5 mL) subcut QWEEK HPI Comments Details: This is a 69-year-old female with a past medical history of obstructive sleep apnea, hypertension, type 2 diabetes, GERD and gastroparesis presenting for diabetic management. Gibraltarian video interprete: [place] [phone] She was diagnosed with type 2 diabetes around 2004. She has a family history of type 2 diabetes in her brothers and sisters. Hemoglobin A1c 7.8% 08/01/2025. Reviewed CGM data the past 14 days CGM active 93% G CA 7.3% Glucose variability 25.3% Very high 5% High 27% Target range 68% 0% hypoglycemia She experiences postprandial hyperglycemia and some nocturnal hyperglycemia. Complications: Retinopathy, neuropathy, nephropathy and CAD. She has hyperlipidemia, on a statin. Hypertension is treated with spironolactone, Entresto, carvedilol. Current regimen: NovoLog 32 units before and lunch and 30 units before dinner 30 units before dinner, Tresiba 42 units at bedtime, Synjardy 10-1000 mg 2 tablets daily, Mounjaro 10 mg weekly. She received a letter that insurance will not cover Synjardy anymore. Sees Podiatry. She has chronic pain which limits her ability to exercise. She has been recently evaluated for right breast pain. She has an appointment scheduled with her primary care provider. She saw OBGYN and General surgery. ROS: Constitutional: No fevers or chills Respiratory: No shortness of breath Cardiovascular: No chest pain Gastrointestinal: No vomiting or abdominal pain. Denies anorexia. Neurologic: No headache, dizziness, syncope Hematologic/Lymphatics: No bleeding or bruising. No painful lymph nodes. Skin: No rash or itching. Endocrine: No cold or heat intolerance. No polyuria or polydipsia. Physical exam: Constitutional: Alert, in no distress. Neck: Supple, Full range of motion. No lymphadenopathy. No palpable thyroid masses. Respiratory: Clear to auscultation. Cardiovascular: S1 S2 regular. No murmurs. Psychiatric: Normal mood and affect [facility] Medical History (Updated 08/01/25 @ 12:31 by RAINER Cottrell) Family history of breast cancer Type II diabetes with care home use of insulin Vertigo Cervicalgia Restless legs syndrome (RLS) Neuropathy Palpitations CAD (coronary artery disease) Depression High cholesterol Celiac disease HTN (hypertension) Hypothyroid Insulin dependent type 1 diabetes mellitus Surgical History H/O bilateral breast reduction surgery History of carpal tunnel release of both wrists History of section H/O abdominoplasty Hx of colonoscopy History of arthroplasty of left knee H/O heart artery stent Family History Mother Diabetes High blood pressure Father Diabetes High blood pressure Paternal Aunt Bone cancer Sister Breast cancer Sister Lymph node cancer Social History Household Members: None Housing: Apartment Are you a primary care information associate to a significant other at home: No Do you presently have visiting nurse or other home services: No Alcohol intake: never Patient Tobacco Use Status: Never used Tobacco service: No Current occupational status: disabled Physical Exam Vital Signs: Last Vital Signs Pulse 83 08/01/25 09:44 BP 118/58 L 08/01/25 09:44 Pulse Ox 96 08/01/25 09:44 Oxygen Delivery Method Room Air 08/01/25 09:44 Oxygen Flow Rate 96 08/01/25 09:44 BMI result Body Mass Index 32.3 Office Procedures Glucose Monitoring Details Details: See HPI 07022 - Glucose monitoring, continuous-physician I&R Procedure code (CPT) selection complete Results AMB Hemoglobin A1c AMB Hemoglobin A1c 7.8 % Last Edit by LAKEISHA Sanders on 08/01/25 10:07 Results Reviewed Results Reviewed: Laboratory Last Values Glucose (Clinic) 220 mg/dL (60-115) H 08/01/25 09:50 Laboratory Tests 12/16/24 01/16/25 10:12 10:05 Creatinine 0.86 Estimated GFR > 60 AST 28 ALT 20 Triglycerides 122 Cholesterol 125 LDL Cholesterol, Calc 57 HDL Cholesterol 44 Vitamin B12 437 TSH 1.44 Assessment & Plan Assessment & Plan (1) Type 2 diabetes mellitus: Code(s): E11.9 - Type 2 diabetes mellitus without complications Category: Medical Qualifiers: Diabetes mellitus care home insulin use: with care home use Diabetes mellitus complication status: with neurologic complications Diabetes mellitus complication detail: with polyneuropathy Qualified Code(s): E11.42 - Type 2 diabetes mellitus with diabetic polyneuropathy; Z79.4 - senior care (current) use of insulin Plan: In summary this is a 69-year-old female with suboptimally controlled type 2 diabetes with complications. Continue Moujaro 10 mg weekly. We deferred increasing the dose due to her history of gastroparesis. Continue Novolog to 32 units before breakfast and lunch and continue 30 units before dinner. She is going to decrease the carbohydrates and sugars in the afternoon. Continue Tesiba to 42 units at bedtime Insurance will stopped covering Synjardy. I sent prescriptions for Jardiance 25 mg and metformin extended release 1000 mg twice daily. We reviewed instructions for treating hypoglycemia. She has overcorrected this sometimes. Written instructions provided to the patient. Diabetic diet reviewed. (2) HTN (hypertension): Code(s): I10 - Essential (primary) hypertension Category: Medical Qualifiers: Hypertension type: primary hypertension Qualified Code(s): I10 - Essential (primary) hypertension Plan: Controlled. Continue current regimen. (3) Hyperlipidemia: Code(s): E78.5 - Hyperlipidemia, unspecified Qualifiers: Hyperlipidemia type: pure hypercholesterolemia Qualified Code(s): E78.00 - Pure hypercholesterolemia, unspecified Plan: Her LDL target is less than 70 because she has a history of coronary artery disease. Continue current medications. Follow a low-cholesterol diet. Avoid smoking and alcohol. Plan Follow up in 3 months for type 2 diabetes. Orders: Orders AMB Hemoglobin A1c Today E11.42 - Type 2 diabetes mellitus with diabetic polyneuropathy, Z13.9 - Encounter for screening, unspecified, Z79.4 - ocean transportation intermediary (current) use of insulin AMB Glucose Monitoring Today E11.9 - Type 2 diabetes mellitus without complications Medications: New metformin ER 1,000 mg (2 x 500 mg) PO BID 360 tabs 1RF 90 days empagliflozin (Jardiance) 25 mg PO QAM 90 tabs 1RF Discontinued Synjardy XR 10-1,000 mg (empagliflozin-metformin) THis is the correct prrescription Discontinued Reason: Doctor's Order 2 tabs (2 x 10-1,000 mg) PO DAILY 30 days 60 ea 11RF NS Patient Instructions: Continue Moujaro 10 mg weekly. Continue Novolog to 32 units before breakfast and lunch and 30 units before dinner Continue Tresiba to 42 units at bedtime Since insurance no longer covers Syndardy I will switch you to Jardiance 25 mg every morning and Metformin 1000 mg twice daily. If you experience low blood sugar (under 70), treat this by eating a chewable f ruit candy like skittles or jelly beans (about 8 pieces), 4 ounces (1/2 cup) of fruit juice (not diet), 1 tablespoon of honey or 4 glucose tablets. If your blood sugar is under 50, take double the amount of one of the above. Recheck your blood sugar in 15 minutes. Contin?e con Moujaro 10 mg semanalmente. Contin?e con Novolog a 32 unidades antes del desayuno y el almuerzo, y 30 unidades antes de la keith. Contin?e con Tresiba a 42 unidades antes de acostarse. Dado que el seguro ya no cubre Syndardy, le cambiar? a Jardiance 25 mg cada ma?walter y Metformina 1000 mg dos veces al d?a. Si experimenta hipoglucemia (menos de 70 mg/dL), trate esto comiendo diego golosina masticable de fruta, nina Skittles o Jelly Beans (aproximadamente 8 piezas), 120 ml (1/2 taza) de jugo de fruta (no diet?annia), 1 cucharada de miel o 4 tabletas de glucosa. Si alfred nivel de glucosa en marshal es inferior a 50 mg/dL, tome el doble de la cantidad de alguno de los [place] mencionados. Vuelva a medir alfred nivel de glucosa en marshal en 15 minutos. Coding Level of Care Code Est Pt Level 4 (51987) Diagnoses Type 2 diabetes mellitus with diabetic polyneuropathy, with long-term current use of insulin E11.42; Z79.4 Diabetes mellitus long line teamster insulin use: with long line teamster use Diabetes mellitus complication status: with neurologic complications Diabetes mellitus complication detail: with polyneuropathy Primary hypertension I10 Hypertension type: primary hypertension Pure hypercholesterolemia E78.00 Hyperlipidemia type: pure hypercholesterolemia CPT Codes Details - CPT: 70888 - Glucose monitoring, continuous-physician I&R ([id number])
[2025-08-01 09:44] VITALS: BP 118/58; PULSE 83; O2SAT 96; BMI 32.3
[2025-08-01 09:54] LABS: Glucose, Whole Blood 220 mg/dL (60-115)
== END 2025-08-01 11:22 | disposition home or self-care (01) ==
LOC: HO.ENCR 09:38
PROVIDERS: PCP Nurse Practitioner Primary Care; Visit Provider Physician Assistant Medical
DX: E11.42 Type 2 diabetes mellitus with diabetic polyneuropathy (principal); Z79.4 Long term (current) use of insulin; I10 Essential (primary) hypertension; E78.00 Pure hypercholesterolemia, unspecified; Z13.9 Encounter for screening, unspecified

== ENCOUNTER 2025-08-01 09:37 | Outpatient (AMB) | payer OTHER, SELFPAY ==
--- NOTE | 2025-08-01 09:54 | A.OFFVIS_ITS ---
Intake Intake Visit Reasons: 60 mins Theatre Manager Required: Yes Theatre Manager Language: Macedonian Accompanied by: Self / Same As Patient Allergies No Known Allergies Allergy (Verified 08/01/25 09:48) HPI Comprehensive Diabetes Asmnt Most Recent Diabetes Results: 2 Microalb/Creat Ratio, (<30) 221.8 ug/mg cr H 01/16/25 Cholesterol, (<200) 125 mg/dL 01/16/25 HDL Cholesterol, (>40) 44 mg/dL 01/16/25 Triglycerides, (<150) 122 mg/dL 01/16/25 Creatinine, (0.5-1.4) 0.86 mg/dL 01/16/25 BUN, (9-16) 29 mg/dL H 01/16/25 Sodium, (135-145) 138 mmol/L 01/16/25 Potassium, (3.3-5.1) 4.7 mmol/L 01/16/25 Chloride, (96-108) 105 mmol/L 01/16/25 Carbon Dioxide, (22-29) 26 mmol/L 01/16/25 Calcium, (8.4-10.2) 9.7 mg/dL 01/16/25 AST, (5-31) 28 U/L 12/16/24 ALT, (0-31) 20 U/L 12/16/24 Total Protein, (6.5-8.0) 7.4 g/dL 12/16/24 Albumin, (3.5-5.0) 4.1 g/dL 12/16/24 [facility] Medical History (Updated 07/26/25 @ 14:04 by Jurgen Blunt MD) Family history of breast cancer Type II diabetes with usp use of insulin Vertigo Cervicalgia Restless legs syndrome (RLS) Neuropathy Palpitations CAD (coronary artery disease) Depression High cholesterol Celiac disease HTN (hypertension) Hypothyroid Insulin dependent type 1 diabetes mellitus Surgical History H/O bilateral breast reduction surgery History of carpal tunnel release of both wrists History of section H/O abdominoplasty Hx of colonoscopy History of arthroplasty of left knee H/O heart artery stent Family History Mother Diabetes High blood pressure Father Diabetes High blood pressure Paternal Aunt Bone cancer Sister Breast cancer Sister Lymph node cancer Social History Household Members: None Housing: Apartment Are you a primary progressive care manager to a significant other at home: No Do you presently have visiting nurse or other home services: No Alcohol intake: never Patient Tobacco Use Status: Never used Tobacco service: No Current occupational status: disabled Assessment & Plan Assessment & Plan (1) Type 2 diabetes mellitus: Code(s): E11.9 - Type 2 diabetes mellitus without complications Qualifiers: Diabetes mellitus usp insulin use: with usp use Diabetes mellitus complication status: with neurologic complications Diabetes mellitus complication detail: with polyneuropathy Qualified Code(s): E11.42 - Type 2 diabetes mellitus with diabetic polyneuropathy; 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 However, patient stated that she feels that the reader for the Trish 3+ needs to be charged frequently, and she is not sure she wants to continue with Trish 3+. At today's visit patient was given 2 sample sensors for Trish 3+, patient reports she did not know how to use the sensor and lost 1 during application. She is also having MRI tomorrow what she will need to take off current sensor. Patient also complains of burning numb pain on right breast that is sometimes travels up to her right side of her neck. Suggested to patient she discuss discomfort with PCP. Patient's A1c today 7.8% which is the same as A1c from April 2025. She is having postprandial hyperglycemia, also reports she is still affected by the stressful situation that her daughter is in in [place]. Patient has appointment with endocrine PA at today's visit, recommended to patient she discuss medication alternatives to Jardiance which she has been told will not be covered by her insurance. Patient will follow-up with rn diabetes educator in 2 months, at the remain on Trish 3+ or go back to Dexcom G7 Patient able to insert sensor independently at home without issue.? Portions of this note were created using voice recognition software, please excuse any words or phrases that may have been misinterpreted. Coding Level of Care Code Est Pt Level 1 (32594) Diagnoses Type 2 diabetes mellitus with diabetic polyneuropathy, with long-term current use of insulin E11.42; Z79.4 Diabetes mellitus intermediate project manager insulin use: with intermediate project manager use Diabetes mellitus complication status: with neurologic complications Diabetes mellitus complication detail: with polyneuropathy Results AMB Hemoglobin A1c 2 AMB Hemoglobin A1c 7.8 % Last Edit by LAKEISHA Sanders on 08/01/25 10:07
== END 2025-08-01 11:21 | disposition home or self-care (01) ==
LOC: HO.ENCR 09:38
PROVIDERS: PCP Nurse Practitioner Primary Care; Visit Provider Registered Nurse Diabetes Educator
DX: E11.42 Type 2 diabetes mellitus with diabetic polyneuropathy (principal); Z79.4 Long term (current) use of insulin

== ENCOUNTER → 2025-08-01 09:37 | Outpatient (BNVA) | payer OTHER, SELFPAY | PROVIDERS: PCP Nurse Practitioner Primary Care; Visit Provider Physician Assistant Medical | DX: E11.42 Type 2 diabetes mellitus with diabetic polyneuropathy (principal); I10 Essential (primary) hypertension; E78.00 Pure hypercholesterolemia, unspecified; Z79.4 Long term (current) use of insulin | CPT/HCPCS: 82947; 83036; 99211; 99212 ==

== ENCOUNTER → 2025-08-03 12:44 | Outpatient (BNVA) | payer OTHER, SELFPAY | PROVIDERS: PCP Nurse Practitioner Primary Care; Visit Provider Surgery | DX: Z71.83 Encounter for nonprocreative genetic counseling (principal) | CPT/HCPCS: 99211 ==